=== PATIENT | female | born 1970 | race Caucasian/White ===

== ENCOUNTER 2016-05-03 12:32 | Emergency (ER) | payer BC, OTHER ==
[~2016-05-03] VITALS: Ht 175.3 cm; Wt 65.3 kg
[~2016-05-03 12:32] MED LIST: BUPR300T43 PO; BUTA1CAP17 PO; CLON1TAB3 PO; GABA-113 PO; IBUP-103 PO; MAGN400T6 PO; OMEGCAP2 PO; SERT25TA PO
[2016-05-03 12:38] VITALS: TEMP 37; Ht 175.3 cm; Wt 65.3 kg
[2016-05-03] MEDS ORDERED: OXYC7.5T65 PO (13:04)
[2016-05-03] MEDS ORDERED: DiphenhydrAMINE HCL 50 MG/ML VIAL IV STA (13:21)
[2016-05-03] MEDS ORDERED: ONDANSETRON INJ 2 MG/ML 2 ML VIAL IV STA (13:21)
[2016-05-03] MEDS ORDERED: KETOROLAC TROMETHAMINE 30 MG/ML VIAL IV STA (13:21)
[2016-05-03] MEDS ORDERED: METOCLOPRAMIDE HCL INJ 5 MG/ML 2 ML VIAL IV STA (13:21)
[2016-05-03] MEDS ORDERED: ACETAMINOPHEN 500 MG TAB PO STA (13:21)
[2016-05-03] MEDS ORDERED: SODIUM CHLORIDE 0.9% 1000ML 1,000 ML IV STA (13:21)
[2016-05-03] MEDS ORDERED: HYDROmorphone INJ 1 MG/ML SYR IV STA (13:21)
--- NOTE | 2016-05-03 13:24 | EMERGENCY ROOM VISIT NOTE ---
History Report prepared by Ashutosh: Chika Pearl Under the Supervision of: Dr. Troy Leblanc M.D. First contact with patient: 13:03 Chief Complaint: HEADACHE Stated Complaint: MIGRAINE W/NECK PAIN History of Present Illness The patient is a 46 year old female who presents to the Emergency Room with complaints of a severe and persistent headache starting a few days ago. The patient also complains of neck pain, nausea, and cold-like symptoms. She reports light sensitivity. She has a history of migraine headache and reports similar symptoms today. The patient has been prescribed Percocet as needed for her headaches. Her last CT scan of her head was a few months ago. She has a herniated disc in her neck. She denies chest pain, shortness of breath, or any other complaints. Source of History: patient Onset: a few days ago Position: head Symptom Intensity: severe Timing: other (persistent) Modifying Factors (Worsening): other (light sensitivity) Associated Symptoms: No SOB, No chest pain Review of Systems See HPI for pertinent positives & negatives. A total of 10 systems reviewed and were otherwise negative. Past Medical & Surgical Medical Problems: (1) Acute exacerbation of chronic low back pain (2) Acute neck pain (3) Acute neck pain (4) Anxiety (5) Cervical disc herniation (6) Cervical strain (7) Chronic neck pain (8) Chronic neck pain (9) Chronic neck pain (10) Depression with anxiety (11) Fall (12) Head injury (13) Knee contusion (14) Migraine Surgical Problems: (1) Hx of total hysterectomy (2) S/P cervical spinal fusion (3) S/P cervical spinal fusion (4) S/P cervical spinal fusion (5) S/P total abdominal hysterectomy Family History Heart disease Hypertension Social History Smoking Status: Never Smoker Alcohol Use: none Drug Use: none Marital Status: Housing Status: lives with family Occupation Status: employed Current/Historical Medications Scheduled Bupropion Hcl (Bupropion Hcl Xl), 300 MG PO QAM Rqrvvxkthd-Xdflfmthullzj-Cufyb (Fioricet), 1 CAP PO PRN UD Gabapentin (Neurontin), 600 MG PO BID Magnesium Oxide (Mag-Ox), 400 MG PO DAILY [place]-3 Fatty Acids (Fish Oil), 1 CAP PO DAILY Sertraline (Zoloft), 25 MG PO DAILY Scheduled PRN Clonazepam (Klonopin), 1 MG PO TID PRN for Anxiety Ibuprofen Tab (Advil), 200-800 MG PO Q4H PRN for Pain Metoclopramide (Reglan), 10 MG PO Q6H PRN for migraine headache or nausea Oxycodone/Acetaminophen 7.5MG/325MG (Percocet 7.5MG/325MG), 1 TAB PO QID PRN for Pain Allergies Coded Allergies: Adhesives (Verified Allergy, Intermediate, RED WELTS FROM ADHESIVE ON STERILE DRAPES, 04/05/16) BLISTERS FROM STERI-STRIPS Benzoin (Verified Allergy, Unknown, RASH, 04/05/16) Tramadol (Verified Adverse Reaction, Unknown, N/V, 04/05/16) Physical Exam Vital Signs Date Time Temp Pulse Resp B/P Pulse Ox O2 Delivery O2 Flow Rate FiO2 05/03/16 13:58 95 16 134/91 99 05/03/16 12:38 37.0 104 18 138/85 97 Room Air Physical Exam CONSTITUTIONAL: Moderate painful, nauseous distress HEENT: No icterus, moist mucous membranes NECK: No meningismus, trachea is midline. CARDIOVASCULAR: Regular rate, normal perfusion RESPIRATORY: Unlabored breathing. Clear to auscultation. GASTROINTESTINAL: Non-tender GENITOURINARY: No flank tenderness MUSCULOSKELETAL: Full range of motion NEUROLOGIC: No acute gross focal deficits. PSYCHIATRIC: Normal affect SKIN: Normal for ethnicity. Medical Decision & Procedures Laboratory Results Test 05/03/16 13:21 05/03/16 13:30 Influenza Type A Antigen Neg for Influ A (NEG) Influenza Type B Antigen Neg for Influ B (NEG) Medications Administered Medications (Trade) Dose Ordered Sig/Rony Route Start Time Stop Time Status Last Admin Dose Admin Acetaminophen 1000 mg 1,000 mg NOW STAT PO 05/03/16 13:21 05/03/16 13:24 DC 05/03/16 13:50 1,000 MG Sodium Chloride (Nss 1000ml) 1,000 ml @ 0 mls/hr Q0M STAT IV 05/03/16 13:21 05/03/16 13:24 DC 05/03/16 13:50 0 MLS/HR Ketorolac Tromethamine (Toradol Inj) 30 mg NOW STAT IV 05/03/16 13:21 05/03/16 13:24 DC 05/03/16 13:52 30 MG Ondansetron HCl (Zofran Inj) 4 mg NOW STAT IV 05/03/16 13:21 05/03/16 13:24 DC 05/03/16 13:51 4 MG Diphenhydramine HCl (Benadryl Inj) 25 mg NOW STAT IV 05/03/16 13:21 05/03/16 13:24 DC 05/03/16 13:55 25 MG Metoclopramide HCl (Reglan Inj) 10 mg NOW STAT IV 05/03/16 13:21 05/03/16 13:24 DC 05/03/16 13:55 10 MG ED Course 1303: Past medical records reviewed. The patient was evaluated in room C02B. A complete history and physical examination was performed. Medical Decision Differential diagnosis includes but is not limited to viral syndrome, migraine headache. 46-year-old with history of known migraine and prior neurologic workup including imaging within the last year presents to the emergency room with viral symptoms over the last several days and headache typical of her migraines. She denies any focal neurologic complaints. She was medicated for her symptoms the emergency room and felt better prior to departure. Imaging not needed this time given recent evaluation. Impression Primary Impression: Headache Scribe Attestation The scribe's documentation has been prepared under my direction and personally reviewed by me in its entirety. I confirm that the note above accurately reflects all work, treatment, procedures, and medical decision making performed by me. Departure Information Prescriptions Metoclopramide (Reglan) 10 Mg Tab 10 MG PO Q6H Y for migraine headache or nausea, #20 TAB Prov: Troy Leblanc MD 05/03/16 Referrals Leora Byrne (PCP) Patient Instructions My [facility]
[2016-05-03] MEDS ORDERED: METO-157 PO (15:39)
[2016-05-03 15:54] VITALS: BP 127/61; PULSE 83; O2SAT 100
== END 2016-05-03 15:56 | disposition home or self-care (01) ==
LOC: C.EDB 12:33 → C.EDC 15:56
DX: R51 Headache (principal); M54.5 Low back pain; M54.2 Cervicalgia; G89.29 Other chronic pain; F41.9 Anxiety disorder, unspecified; F32.9 Major depressive disorder, single episode, unspecified; Z79.899 Other long term (current) drug therapy

== ENCOUNTER 2016-06-11 17:23 | Emergency (ER) | payer BC, OTHER ==
[~2016-06-11] VITALS: Ht 175.3 cm; Wt 61.8 kg
[~2016-06-11 17:23] MED LIST changes: +METO-157 PO; +OXYC7.5T65 PO
[2016-06-11 17:25] VITALS: TEMP 36.9; Ht 175.3 cm; Wt 61.8 kg
[2016-06-11] MEDS ORDERED: PROCHLORPERAZINE 5 MG/ML 2 ML VIAL IV STA (17:33)
[2016-06-11] MEDS ORDERED: MoRPHine SULFATE 4 MG/ML 1 ML CARP\\VIAL IV STA (17:33)
[2016-06-11] MEDS ORDERED: KETOROLAC TROMETHAMINE 30 MG/ML VIAL IV STA (17:33)
[2016-06-11] MEDS ORDERED: DiphenhydrAMINE HCL 50 MG/ML VIAL IV STA (17:33)
[2016-06-11] MEDS ORDERED: SODIUM CHLORIDE 0.9% 1000ML 1,000 ML IV STA (17:33)
--- NOTE | 2016-06-11 17:39 | EMERGENCY ROOM VISIT NOTE ---
History Report prepared by Ashutosh: Lissette Henry Under the Supervision of: Dr. Eliud Sargent M.D. First contact with patient: 17:30 Chief Complaint: HEADACHE Stated Complaint: MIGRAINE History of Present Illness The patient is a 46 year old female who presents to the Emergency Room with complaints of a persistent migraine headache that began yesterday, but worsened today. She currently rates her discomfort as a 6/10 in severity, she localizes her pain to the right side of her head. The patient states that she has a history of migraines and states that her headache today feels similar to her previous migraines. She notes nausea, but denies any vomiting. The patient states that she has not had a migraine in awhile, noting that she has medications at home that she typically takes. She states that she ran out of her medications and needs to set up an appointment with her neurologist. The patient denies any recent fall or trauma to her head recently. She denies any fever, urinary symptoms, or weakness or numbness to any extremity. Source of History: patient Onset: yesterday Position: head Symptom Intensity: 6/10 Timing: worsening, other (persistent) Associated Symptoms: + nausea, No fevers, No numbness, No urinary symptoms, No vomiting, No weakness Review of Systems See HPI for pertinent positives & negatives. A total of 10 systems reviewed and were otherwise negative. Past Medical & Surgical Medical Problems: (1) Acute exacerbation of chronic low back pain (2) Acute neck pain (3) Acute neck pain (4) Anxiety (5) Cervical disc herniation (6) Cervical strain (7) Chronic neck pain (8) Chronic neck pain (9) Chronic neck pain (10) Depression with anxiety (11) Fall (12) Head injury (13) Knee contusion (14) Migraine Surgical Problems: (1) Hx of total hysterectomy (2) S/P cervical spinal fusion (3) S/P cervical spinal fusion (4) S/P cervical spinal fusion (5) S/P total abdominal hysterectomy Family History Heart disease Hypertension Social History Smoking Status: Never Smoker Alcohol Use: none Drug Use: none Marital Status: Housing Status: lives with family Occupation Status: employed Current/Historical Medications Scheduled Bupropion Hcl (Bupropion Hcl Xl), 300 MG PO QAM Qiptvbxlnm-Axilltdwvsrwq-Xkqjv (Fioricet), 1 CAP PO PRN UD Calcium Carbonate (Calcium), 600 MG PO DAILY Gabapentin (Neurontin), 600 MG PO BID Magnesium Oxide (Mag-Ox), 400 MG PO DAILY Sertraline (Zoloft), 100 MG PO DAILY Scheduled PRN Clonazepam (Klonopin), 1 MG PO TID PRN for Anxiety Ibuprofen Tab (Advil), 200-800 MG PO Q4H PRN for Pain Oxycodone/Acetaminophen 7.5MG/325MG (Percocet 7.5MG/325MG), 1 TAB PO QID PRN for Pain Allergies Coded Allergies: Adhesives (Verified Allergy, Intermediate, RED WELTS FROM ADHESIVE ON STERILE DRAPES, 04/05/16) BLISTERS FROM STERI-STRIPS Benzoin (Verified Allergy, Unknown, RASH, 04/05/16) Tramadol (Verified Adverse Reaction, Unknown, N/V, 04/05/16) Physical Exam Vital Signs Date Time Temp Pulse Resp B/P Pulse Ox O2 Delivery O2 Flow Rate FiO2 06/11/16 19:03 74 16 130/69 98 06/11/16 17:25 36.9 91 17 150/90 98 Room Air Physical Exam GENERAL: Patient is in no acute distress. HEENT: No acute trauma, normocephalic atraumatic, mucous membranes moist, no nasal congestion, no scleral icterus. Pupils equal and reactive to light. NECK: No stridor, no adenopathy, no meningismus, trachea is midline. LUNGS: Clear to auscultation bilaterally, no wheeze, no rhonchi, breath sounds equal. HEART: Without murmurs gallops or rubs, regular rate and rhythm. ABDOMEN: Soft, nontender, bowel sounds positive, no hernias, no peritonitis. EXTREMITIES: No cyanosis or edema, full range of motion of all the joints without pain or difficulty, no signs for acute trauma. NEUROLOGIC: Oriented x 3, no acute motor or sensory deficits, no focal weakness. No cerebellar deficits. SKIN: No rash, no jaundice, no diaphoresis Medical Decision & Procedures Medications Administered Medications (Trade) Dose Ordered Sig/Rony Route Start Time Stop Time Status Last Admin Dose Admin Sodium Chloride (Nss 1000ml) 1,000 ml @ 999 mls/hr Q1H1M STAT IV 06/11/16 17:33 06/11/16 18:33 DC 06/11/16 17:59 999 MLS/HR Ketorolac Tromethamine (Toradol Inj) 30 mg NOW STAT IV 06/11/16 17:33 06/11/16 17:37 DC 06/11/16 18:00 30 MG Prochlorperazine Edisylate (Compazine Inj) 10 mg NOW STAT IV 06/11/16 17:33 06/11/16 17:37 DC 06/11/16 18:01 10 MG Diphenhydramine HCl (Benadryl Inj) 50 mg NOW STAT IV 06/11/16 17:33 06/11/16 17:37 DC 06/11/16 18:01 50 MG Morphine Sulfate (MoRPHine SULFATE INJ) 4 mg NOW STAT IV 06/11/16 17:33 06/11/16 17:37 DC 06/11/16 18:00 4 MG Dexamethasone Sodium Phosphate (Decadron Inj) 10 mg NOW ONCE IV 06/11/16 17:45 06/11/16 17:46 DC 06/11/16 18:00 10 MG ED Course 1532: The patient was evaluated in room D6. A complete history and physical exam was performed. 1733: Ordered Morphine sulfate 4 mg IV, Benadryl Inj 50 mg IV, Compazine Inj 10 mg IV, Toradol Inj 30 mg IV, Sodium Chloride 1000 ml @ 999 mls/hr IV. 1745: Ordered Decadron Inj 10 mg IV. 1848: I reevaluated the patient and she is resting comfortably. I discussed the exam findings with her and I discussed the treatment plan. She verbalized complete understanding and agreement. She is ready to go home. Medical Decision The patient is a 46 year old female who presents to the ED with complaints of headache. Differential diagnoses considered include migraine headache, tension headache, dehydration, meningitis, stroke, intracranial bleeding. The patient presents with a headache that she describes as a migraine. She has had previous similar migraines. She has not suffered head trauma, there has been no arm or leg weakness. No fever. She does not have meningismus. The patient received IV morphine, IV saline, IV Compazine, IV Benadryl and IV Toradol. She was given IV Decadron. The patient was reassessed, she feels markedly better, I do think she can be discharged home. She can return if worsening. Her headache does sound migrainous. Impression Primary Impression: Headache Scribe Attestation The scribe's documentation has been prepared under my direction and personally reviewed by me in its entirety. I confirm that the note above accurately reflects all work, treatment, procedures, and medical decision making performed by me. Departure Information Dispostion Home / Self-Care Referrals Leora Byrne (PCP) Forms HOME CARE DOCUMENTATION FORM, IMPORTANT VISIT INFORMATION Patient Instructions My [facility] Additional Instructions rest sleep fluids return if worsening
[2016-06-11] MEDS ORDERED: SERT-234 PO (17:42)
[2016-06-11] MEDS ORDERED: DEXAMETHASONE SOD INJ 10 MG/ML VIAL IV ONE (17:45)
[2016-06-11] MEDS ORDERED: CALC-393 PO (17:47)
[2016-06-11 19:03] VITALS: BP 130/69; PULSE 74; O2SAT 98
== END 2016-06-11 19:16 | disposition home or self-care (01) ==
LOC: C.EDB 17:25 → C.EDD 19:16
DX: R51 Headache (principal); M54.5 Low back pain; G89.29 Other chronic pain; F41.9 Anxiety disorder, unspecified; F32.9 Major depressive disorder, single episode, unspecified; Z82.49 Family history of ischemic heart disease and other diseases of the circulatory system; Z79.899 Other long term (current) drug therapy

== ENCOUNTER 2016-07-05 17:18 | Emergency (ER) | payer BC, OTHER ==
[~2016-07-05] VITALS: Ht 175.3 cm; Wt 61.1 kg
[~2016-07-05 17:18] MED LIST changes: +CALC-393 PO; -METO-157 PO; -OMEGCAP2 PO; +SERT-234 PO; -SERT25TA PO
[2016-07-05 17:23] VITALS: TEMP 37; Ht 175.3 cm; Wt 61.1 kg
[2016-07-05] MEDS ORDERED: PROCHLORPERAZINE 5 MG/ML 2 ML VIAL IV STA (18:16)
[2016-07-05] MEDS ORDERED: SODIUM CHLORIDE 0.9% 1000ML 1,000 ML IV STA (18:16)
[2016-07-05] MEDS ORDERED: DiphenhydrAMINE HCL 50 MG/ML VIAL IV STA (18:16)
[2016-07-05] MEDS ORDERED: MoRPHine SULFATE 4 MG/ML 1 ML CARP\\VIAL IV STA (18:16)
--- NOTE | 2016-07-05 18:19 | EMERGENCY ROOM VISIT NOTE ---
History Report prepared by Ashutosh: Mihai Naranjo Under the Supervision of: Dr. Edgar Cheng M.D. First contact with patient: 18:06 Chief Complaint: HEAD INJURY (MINOR) Stated Complaint: BLACKED OUT/ PASS OUT - HIT HEAD History of Present Illness The patient is a 46 year old female who presents to the Emergency Room with complaints of a resolved episode of syncope that occurred at approximately 1400 today. The patient was walking out of her laundry room when the next thing she remembers is waking up on the floor surrounded by her dogs. The patient is not sure how long she was on the ground and cannot remember passing out. The patient hit her head during the fall. She also complains of left knee pain and bruising. The patient notes that she felt dizzy and had chest pressure when she woke up this morning. She denies abdominal pain. The patient takes Gabapentin and occasionally Percocet as needed. She has a history of neck pain and surgery. The patient denies any history of blood clots. She has not traveled recently. Source of History: patient Onset: 1400 today Position: other (global) Quality: other (syncope) Timing: resolved Associated Symptoms: + headache, No abdominal pain Review of Systems See HPI for pertinent positives & negatives. A total of 10 systems reviewed and were otherwise negative. Past Medical & Surgical Medical Problems: (1) Acute exacerbation of chronic low back pain (2) Acute neck pain (3) Acute neck pain (4) Anxiety (5) Cervical disc herniation (6) Cervical strain (7) Chronic neck pain (8) Chronic neck pain (9) Chronic neck pain (10) Depression with anxiety (11) Fall (12) Head injury (13) Knee contusion (14) Migraine Surgical Problems: (1) Hx of total hysterectomy (2) S/P cervical spinal fusion (3) S/P cervical spinal fusion (4) S/P cervical spinal fusion (5) S/P total abdominal hysterectomy Family History Heart disease Hypertension Social History Smoking Status: Never Smoker Alcohol Use: none Drug Use: none Marital Status: Housing Status: lives with family Occupation Status: employed Current/Historical Medications Scheduled Bupropion Hcl (Bupropion Hcl Xl), 300 MG PO QAM Gullmdjuoy-Mptbkcepscgme-Imsic (Fioricet), 1 CAP PO PRN UD Calcium Carbonate (Calcium), 600 MG PO DAILY Gabapentin (Neurontin), 600 MG PO BID Magnesium Oxide (Mag-Ox), 400 MG PO DAILY Sertraline (Zoloft), 100 MG PO DAILY Scheduled PRN Clonazepam (Klonopin), 1 MG PO TID PRN for Anxiety Ibuprofen Tab (Advil), 200-800 MG PO Q4H PRN for Pain Oxycodone/Acetaminophen 7.5MG/325MG (Percocet 7.5MG/325MG), 1 TAB PO QID PRN for Pain Allergies Coded Allergies: Adhesives (Verified Allergy, Intermediate, RED WELTS FROM ADHESIVE ON STERILE DRAPES, 04/05/16) BLISTERS FROM STERI-STRIPS Benzoin (Verified Allergy, Unknown, RASH, 04/05/16) Tramadol (Verified Adverse Reaction, Unknown, N/V, 04/05/16) Physical Exam Vital Signs Date Time Temp Pulse Resp B/P Pulse Ox O2 Delivery O2 Flow Rate FiO2 07/05/16 21:29 75 16 125/70 99 07/05/16 21:07 79 18 125/70 98 Room Air 07/05/16 19:15 102 18 136/81 100 Room Air 07/05/16 17:25 20 07/05/16 17:23 37.0 106 20 136/85 98 Room Air Physical Exam GENERAL: Patient is severely anxious appearing in moderate distress. HEENT: Large bruising over the left forehead extending onto the left christianity , mucous membranes moist, no nasal congestion, no scleral icterus. NECK: No stridor, no adenopathy, no meningismus, trachea is midline. LUNGS: No dyspnea. Clear to auscultation and equal bilaterally. No wheeze, no rhonchi. HEART: Regular rate and rhythm. No murmurs, rubs, gallops appreciated. ABDOMEN: Soft, nontender, bowel sounds positive, no masses appreciated, no peritonitis. BACK: No midline tenderness, no CVA tenderness EXTREMITIES: Normal motion all extremities, no cyanosis, no edema. Large amount of bruising over the left anterior lower knee lateral extending onto proximal tibia with severe tenderness to palpation. NEUROLOGIC: Alert and oriented, no acute motor or sensory deficits, no focal weakness, cranial nerves grossly intact. GCS 15. SKIN: No rash, no jaundice, no diaphoresis. Medical Decision & Procedures ER Provider Diagnostic Interpretation: Radiology results and stated below per my review and radiologist interpretation: SINGLE VIEW CHEST CLINICAL HISTORY: Syncope. FINDINGS: An AP upright chest radiograph is obtained. No prior studies are available for comparison at the time of dictation. The cardiomediastinal silhouette is unremarkable. The lungs and pleural spaces are clear. No pneumothorax is seen. The bony thorax is grossly intact. IMPRESSION: No active disease in the chest. Electronically signed by: Eliud Marcano M.D. 07/05/2016 8:34 PM Dictated Date/Time: 07/05/2016 8:[address] SCAN OF THE BRAIN WITHOUT IV CONTRAST CLINICAL HISTORY: Syncope. COMPARISON STUDY: CT of the brain dated 04/05/2016. TECHNIQUE: Unenhanced axial CT scan of the brain is performed from the vertex to the skull base. Automated dose control exposure was utilized. CT DOSE: 601.98 mGy.cm FINDINGS: Brain parenchyma: The brain parenchyma is normal in appearance. There is no hemorrhage, mass effect, or evidence of acute territorial ischemia by CT criteria. Rockwell-white matter is preserved. No extra-axial fluid collection is seen. Ventricles, sulci, cisterns: Normal in configuration. Intracranial vasculature: The visualized intracranial vasculature at the skull base is normal in appearance. Calvarium: Unremarkable. Sinuses and mastoids: The visualized paranasal sinuses are clear. The mastoid air cells are well pneumatized. Orbits: The bony orbits are grossly intact. IMPRESSION: No acute intracranial abnormality. Electronically signed by: Eliud Marcano M.D. 07/05/2016 7:37 PM Dictated Date/Time: 07/05/2016 7:35 PM LEFT KNEE 2 VIEWS CLINICAL HISTORY: Left knee injury. FINDINGS: AP and crosstable lateral views of left knee are compared to study dated 06/10/2012. The skeletal structures are well mineralized. No fracture is seen. The joint spaces of the knee are preserved. A calcified fabella is incidentally noted. There is no joint effusion. The overlying soft tissues are within normal limits. IMPRESSION: Unremarkable radiographic assessment of the left knee. Electronically signed by: Eliud Marcano M.D. 07/05/2016 8:23 PM Dictated Date/Time: 07/05/2016 8:22 PM LEFT TIBIA AND FIBULA 2 VIEWS CLINICAL HISTORY: Fall with left leg pain. FINDINGS: AP and lateral views of the left tibia and fibula are compared to study dated 10/23/2015. The skeletal structures are well mineralized. No fracture is seen in the left tibia or fibula. The knee and ankle joints are grossly maintained. The overlying soft tissues are within normal limits. IMPRESSION: Unremarkable radiographic assessment of the left tibia and fibula. Electronically signed by: Eliud Marcano M.D. 07/05/2016 8:33 PM Dictated Date/Time: 07/05/2016 8:32 PM Laboratory Results 07/05/16 18:40 Red Blood Count 4.52, Mean Corpuscular Volume 91.2, Mean Corpuscular Hemoglobin 32.1, Mean Corpuscular Hemoglobin Concent 35.2, Mean Platelet Volume 9.5, Neutrophils (%) (Auto) 53.8, Lymphocytes (%) (Auto) 38.0, Monocytes (%) (Auto) 5.4, Eosinophils (%) (Auto) 1.5, Basophils (%) (Auto) 1.2, Neutrophils # (Auto) 3.66, Lymphocytes # (Auto) 2.59, Monocytes # (Auto) 0.37, Eosinophils # (Auto) 0.10, Basophils # (Auto) 0.08 07/05/16 18:40 Test 07/05/16 18:40 White Blood Count 6.81 K/uL (4.8-10.8) Red Blood Count 4.52 M/uL (4.2-5.4) Hemoglobin 14.5 g/dL (12.0-16.0) Hematocrit 41.2 % (37-47) Mean Corpuscular Volume 91.2 fL (80-100) Mean Corpuscular Hemoglobin 32.1 pg (25-34) Mean Corpuscular Hemoglobin Concent 35.2 g/dl (32-36) Platelet Count 320 K/uL (130-400) Mean Platelet Volume 9.5 fL (7.4-10.4) Neutrophils (%) (Auto) 53.8 % Lymphocytes (%) (Auto) 38.0 % Monocytes (%) (Auto) 5.4 % Eosinophils (%) (Auto) 1.5 % Basophils (%) (Auto) 1.2 % Neutrophils # (Auto) 3.66 K/uL (1.4-6.5) Lymphocytes # (Auto) 2.59 K/uL (1.2-3.4) Monocytes # (Auto) 0.37 K/uL (0.11-0.59) Eosinophils # (Auto) 0.10 K/uL (0-0.5) Basophils # (Auto) 0.08 K/uL (0-0.2) RDW Standard Deviation 42.2 fL (36.4-46.3) RDW Coefficient of Variation 12.7 % (11.5-14.5) Immature Granulocyte % (Auto) 0.1 % Immature Granulocyte # (Auto) 0.01 K/uL (0.00-0.02) D-Dimer < 190 ug/L FEU (0-500) Anion Gap 8.0 mmol/L (3-11) Est Creatinine Clear Calc Drug Dose 84.8 ml/min Estimated GFR () 102.5 Estimated GFR (Non- 88.4 BUN/Creatinine Ratio 16.7 (10-20) Calcium Level 9.4 mg/dl (8.5-10.1) Total Creatine Kinase 69 U/L (26-192) Troponin I < 0.015 ng/ml (0-0.045) Laboratory results as reviewed by me. Medications Administered Medications (Trade) Dose Ordered Sig/Rony Route Start Time Stop Time Status Last Admin Dose Admin Sodium Chloride (Nss 1000ml) 1,000 ml @ 999 mls/hr Q1H1M STAT IV 07/05/16 18:16 07/05/16 19:16 DC 07/05/16 19:10 999 MLS/HR Prochlorperazine Edisylate (Compazine Inj) 10 mg NOW STAT IV 07/05/16 18:16 07/05/16 18:20 DC 07/05/16 19:11 10 MG Diphenhydramine HCl (Benadryl Inj) 50 mg NOW STAT IV 07/05/16 18:16 07/05/16 18:20 DC 07/05/16 19:11 50 MG Morphine Sulfate (MoRPHine SULFATE INJ) 4 mg NOW STAT IV 07/05/16 18:16 07/05/16 18:20 DC 07/05/16 19:11 4 MG ECG Indication: syncope Rate (beats per minute): 105 Rhythm: sinus tachycardia Findings: no acute ischemic change, no ectopy ED Course 1809: The patient was evaluated in room C4. A complete history and physical exam was performed. 1815: Morphine Sulfate 4 mg IV, Benadryl 50 mg IV, Compazine 10 mg IV, NSS 1000 ml @ 999 mls/hr. 2020: The patient was sound asleep. She notes that she is feeling much better. 2100: The patient feels much better and would like to go home. Medical Decision Differential: Vaso-vagal, Intracerebral Event, Neurologic, Infectious, Volume Deficiency, Hypoglycemia, Electrolyte Abnormality, Cardiac Source, Toxicologic, amongst other pathologies entertained. 46 yr old female with syncopal event of unclear cause this am with resultant left forehead contusion and left knee injury. Quite anxious and upset on arrival. Given above meds with almost complete resolution of symptoms. Occurred > 6 hours ago and with trop negative and normal EKG I do not feel this is ACS. She does not have elevated dimer and is low risk PE thus I do not feel CTA indicated. CT head negative for acute process and with being fulling neuro intact I do not feel there is indication for MRI nor LP. No fevers nor nuchal ridgidity and she does not appear septic nor meningitic. Labs otherwise unremarkable. No evidence of rhabdo. No acute intoxicated nor under influence. Stable and in no distress feeling well. Wishes to get home. States specifically she feels safe at home. reasonably concerned and not overbearing in any way. Discussed post concussion instructions along with syncope unknown origin. Aware can return at any time if further issues/ concerns. Impression Primary Impression: Closed head injury Additional Impressions: Loss of consciousness Concussion Scribe Attestation The scribe's documentation has been prepared under my direction and personally reviewed by me in its entirety. I confirm that the note above accurately reflects all work, treatment, procedures, and medical decision making performed by me. Departure Information Dispostion Home / Self-Care Referrals Leora Byrne (PCP) Forms HOME CARE DOCUMENTATION FORM, IMPORTANT VISIT INFORMATION Patient Instructions ED Concussion, My [facility] Problem Qualifiers Primary Impression: Closed head injury Encounter type: initial encounter Qualified Codes: S09.90XA - Unspecified injury of head, initial encounter Additional Impressions: Concussion Encounter type: initial encounter Loss of consciousness presence/duration: with LOC of unspecified duration Qualified Codes: S06.0X9A - Concussion with loss of consciousness of unspecified duration, initial encounter
[2016-07-05 18:55] LABS: BASO % 1.2 %; BASO ABS # 0.08 K/uL (0-0.2); COMPLETE YES; EOS % 1.5 %; HEMATOCRIT 41.2 % (37-47); IG% 0.1 %; LYMPH ABS # 2.59 K/uL (1.2-3.4); MEAN CELL VOLUME 91.2 fL (80-100); MEAN CORPUSCULAR HEMOGLOBIN 32.1 pg (25-34); MEAN CORPUSCULAR HGB CONC 35.2 g/dl (32-36); MEAN PLATELET VOLUME 9.5 fL (7.4-10.4); MONO % 5.4 %; NEUT % 53.8 %; PLATELET COUNT 320 K/uL (130-400); RED BLOOD COUNT 4.52 M/uL (4.2-5.4); WHITE BLOOD COUNT 6.81 K/uL (4.8-10.8)
[2016-07-05 19:12] LABS: BLOOD UREA NITROGEN 13 mg/dl (7-18); BUN/CREATININE RATIO 16.7 (10-20); CALCIUM 9.4 mg/dl (8.5-10.1); CARBON DIOXIDE 27 mmol/L (21-32); CHLORIDE 109 mmol/L (98-107); GLUCOSE 83 mg/dl (70-99); POTASSIUM 3.7 mmol/L (3.5-5.1); SODIUM 144 mmol/L (136-145)
--- NOTE | 2016-07-05 19:38 | DIAGNOSTIC IMAGING REPORT ---
CT SCAN OF THE BRAIN WITHOUT IV CONTRAST CLINICAL HISTORY: Syncope. COMPARISON STUDY: CT of the brain dated 04/05/2016. TECHNIQUE: Unenhanced axial CT scan of the brain is performed from the vertex to the skull base. Automated dose control exposure was utilized. CT DOSE: 601.98 mGy.cm FINDINGS: Brain parenchyma: The brain parenchyma is normal in appearance. There is no hemorrhage, mass effect, or evidence of acute territorial ischemia by CT criteria. Rockwell-white matter is preserved. No extra-axial fluid collection is seen. Ventricles, sulci, cisterns: Normal in configuration. Intracranial vasculature: The visualized intracranial vasculature at the skull base is normal in appearance. Calvarium: Unremarkable. Sinuses and mastoids: The visualized paranasal sinuses are clear. The mastoid air cells are well pneumatized. Orbits: The bony orbits are grossly intact. IMPRESSION: No acute intracranial abnormality. Electronically signed by: Eliud Marcano M.D. 07/05/2016 7:37 PM Dictated Date/Time: 07/05/2016 7:35 PM
--- NOTE | 2016-07-05 20:24 | DIAGNOSTIC IMAGING REPORT ---
LEFT KNEE 2 VIEWS CLINICAL HISTORY: Left knee injury. FINDINGS: AP and crosstable lateral views of left knee are compared to study dated 06/10/2012. The skeletal structures are well mineralized. No fracture is seen. The joint spaces of the knee are preserved. A calcified fabella is incidentally noted. There is no joint effusion. The overlying soft tissues are within normal limits. IMPRESSION: Unremarkable radiographic assessment of the left knee. Electronically signed by: Eliud Marcano M.D. 07/05/2016 8:23 PM Dictated Date/Time: 07/05/2016 8:22 PM
--- NOTE | 2016-07-05 20:34 | DIAGNOSTIC IMAGING REPORT ---
LEFT TIBIA AND FIBULA 2 VIEWS CLINICAL HISTORY: Fall with left leg pain. FINDINGS: AP and lateral views of the left tibia and fibula are compared to study dated 10/23/2015. The skeletal structures are well mineralized. No fracture is seen in the left tibia or fibula. The knee and ankle joints are grossly maintained. The overlying soft tissues are within normal limits. IMPRESSION: Unremarkable radiographic assessment of the left tibia and fibula. Electronically signed by: Eliud Marcano M.D. 07/05/2016 8:33 PM Dictated Date/Time: 07/05/2016 8:32 PM
--- NOTE | 2016-07-05 20:36 | DIAGNOSTIC IMAGING REPORT ---
SINGLE VIEW CHEST CLINICAL HISTORY: Syncope. FINDINGS: An AP upright chest radiograph is obtained. No prior studies are available for comparison at the time of dictation. The cardiomediastinal silhouette is unremarkable. The lungs and pleural spaces are clear. No pneumothorax is seen. The bony thorax is grossly intact. IMPRESSION: No active disease in the chest. Electronically signed by: Eliud Marcano M.D. 07/05/2016 8:34 PM Dictated Date/Time: 07/05/2016 8:33 PM
[2016-07-05 21:29] VITALS: BP 125/70; PULSE 75; O2SAT 99
== END 2016-07-05 21:32 | disposition home or self-care (01) ==
LOC: C.EDB 17:21 → C.EDC 21:32
DX: S09.90XA Unspecified injury of head, initial encounter (principal); S06.0X9A Concussion with loss of consciousness of unspecified duration, initial encounter; W19.XXXA Unspecified fall, initial encounter; F41.8 Other specified anxiety disorders; G89.29 Other chronic pain; Z87.820 Personal history of traumatic brain injury; Z87.828 Personal history of other (healed) physical injury and trauma; Z90.710 Acquired absence of both cervix and uterus; Z98.1 Arthrodesis status; Z79.899 Other long term (current) drug therapy; Z88.8 Allergy status to other drugs, medicaments and biological substances; Z91.09 Other allergy status, other than to drugs and biological substances; Z82.49 Family history of ischemic heart disease and other diseases of the circulatory system

== ENCOUNTER 2016-11-11 15:47 | Emergency (ER) | payer BC, OTHER ==
[~2016-11-11] VITALS: Ht 175.3 cm; Wt 64.2 kg
[2016-11-11 15:50] VITALS: TEMP 36.9; Ht 175.3 cm; Wt 64.2 kg
[2016-11-11] MEDS ORDERED: ONDANSETRON INJ 2 MG/ML 2 ML VIAL IV STA (15:55)
[2016-11-11] MEDS ORDERED: MoRPHine SULFATE 10 MG/ML CARP/VIAL IV STA (15:55)
[2016-11-11] MEDS ORDERED: SODIUM CHLORIDE 0.9% 1000ML 1,000 ML IV STA (15:55)
[2016-11-11 16:02] VITALS: O2SAT 100
[2016-11-11] MEDS ORDERED: MoRPHine SULFATE 2 MG/ML CARP ONE (16:05)
[2016-11-11] MEDS ORDERED: MoRPHine SULFATE 4 MG/ML 1 ML CARP\\VIAL ONE (16:05)
--- NOTE | 2016-11-11 16:06 | EMERGENCY ROOM VISIT NOTE ---
History Report prepared by Ashutosh: Sukumar Lambert Under the Supervision of: Dr. Edgar Cheng M.D. First contact with patient: 15:49 Chief Complaint: SEIZURE Stated Complaint: SEIZURE, FALL, EYE INJURY History of Present Illness The patient is a 46 year old female who presents to the Emergency Room via EMS due to a seizure episode that occurred prior to arrival this afternoon. Per the nursing staff, the patient has no seizure history. The patient's daughter witnessed the patient's seizure episode, and says that the patient started to stiffen up while taking out laundry. The patient then seized for 2 minutes, and then fell. She hit her head on the fall on a metal shelf. The patient was incontinent, and was out for about 5 minutes. The patient says that she felt fine prior to the episode, and she does not remember passing out. She states that the last thing she remembers is walking downstairs. The patient currently complains of bad neck pain as well as a mild headache. She adds that her lip is a bit sore. The patient says that she has a history of cervical spine surgeries. She currently has a lump on her upper cervical spine. The patient says that she has not had any new medications nor any chance of . She notes that she has not been drinking heavily recently or using recreational drugs. She does add that she took Benadryl earlier in the day for a bee sting. The patient denies biting her tongue. She has a history of a hysterectomy. Source of History: patient, nursing staff Onset: Prior to arrival this afternoon Position: other (global - seizure) Timing: other (episode) Associated Symptoms: + LOC, + headache, + neck pain Note: Associated symptoms: Hit head on fall. Lip soreness. Incontinent during episode. Denies biting tongue. Review of Systems See HPI for pertinent positives & negatives. A total of 10 systems reviewed and were otherwise negative. Past Medical & Surgical Medical Problems: (1) Acute exacerbation of chronic low back pain (2) Acute neck pain (3) Acute neck pain (4) Anxiety (5) Cervical disc herniation (6) Cervical strain (7) Chronic neck pain (8) Chronic neck pain (9) Chronic neck pain (10) Depression with anxiety (11) Fall (12) Head injury (13) Knee contusion (14) Migraine Surgical Problems: (1) Hx of total hysterectomy (2) S/P cervical spinal fusion (3) S/P cervical spinal fusion (4) S/P cervical spinal fusion (5) S/P total abdominal hysterectomy Family History Heart disease Hypertension Social History Smoking Status: Never Smoker Alcohol Use: none Drug Use: none Marital Status: Housing Status: lives with family Occupation Status: employed Current/Historical Medications Scheduled Bupropion Hcl (Bupropion Hcl Xl), 300 MG PO QAM Qgnxadvwtc-Zdqkabqxnfscw-Knsji (Fioricet), 1 CAP PO PRN UD Calcium Carbonate (Calcium), 600 MG PO DAILY Gabapentin (Gabapentin), 400 MG PO QID Magnesium Oxide (Mag-Ox), 400 MG PO DAILY Scheduled PRN Clonazepam (Klonopin), 1 MG PO TID PRN for Anxiety Ibuprofen Tab (Advil), 200-800 MG PO Q4H PRN for Pain Oxycodone Immediate Rel Tab (Roxicodone Ir), 1-2 TAB PO Q4H PRN for Severe Pain Oxycodone/Acetaminophen 7.5MG/325MG (Percocet 7.5MG/325MG), 1 TAB PO QID PRN for Pain Allergies Coded Allergies: Adhesives (Verified Allergy, Intermediate, RED WELTS FROM ADHESIVE ON STERILE DRAPES, 04/05/16) BLISTERS FROM STERI-STRIPS Benzoin (Verified Allergy, Unknown, RASH, 04/05/16) Tramadol (Verified Adverse Reaction, Unknown, N/V, 04/05/16) Physical Exam Vital Signs Date Time Temp Pulse Resp B/P (MAP) Pulse Ox O2 Delivery O2 Flow Rate FiO2 11/11/16 18:37 98 15 149/86 100 11/11/16 17:04 98 15 149/86 100 Room Air 11/11/16 16:05 105 11/11/16 16:02 100 Room Air 11/11/16 15:50 36.9 107 18 161/100 99 Room Air Physical Exam GENERAL: Patient is uncomfortable appearing and in mild distress. HEENT: Mucous membranes moist, no nasal congestion, no scleral icterus. FACE: Large ecchymotic hematoma over right maxillary sinus extending to right nary. Dried blood in right nares. NECK: In cervical collar. Midline trachea. Upper cervical tenderness to palpation with swelling. LUNGS: No dyspnea. Clear to auscultation and equal bilaterally. No wheeze, no rhonchi. HEART: Regular rate and rhythm. No murmurs, rubs, gallops appreciated. ABDOMEN: Soft, nontender, bowel sounds positive, no masses appreciated, no peritonitis. BACK: No midline tenderness, no CVA tenderness EXTREMITIES: Normal motion all extremities, no cyanosis, no edema. NEUROLOGIC: Alert and oriented, no acute motor or sensory deficits, no focal weakness, cranial nerves grossly intact. SKIN: No rash, no jaundice, no diaphoresis. Medical Decision & Procedures ER Provider Diagnostic Interpretation: Radiology results and stated below per my review and radiologist interpretation: FACIAL BONES-MXILLOFAC WITHOUT CT DOSE: HISTORY: Trauma Fall, Seizure, right max swelling/TTP TECHNIQUE: Multiaxial CT images of the maxillofacial region were performed and reformatted in the coronal plane without the use of contrast. A dose lowering technique was utilized adhering to the principles of ALARA. COMPARISON: 04/05/2016 FINDINGS: Fracture nasal bones. This is considered nondisplaced. Mild right infraorbital soft tissue edema. Degenerative change of the temporomandibular joints bilaterally. No additional acute bony abnormality. IMPRESSION: 1. Fracture nasal bones. 2. Mild periorbital soft tissue edematous change 3. No additional acute bony abnormality. The above report was generated using voice recognition software. It may contain grammatical, syntax or spelling errors. Electronically signed by: Sancho Foster M.D. 11/11/2016 5:06 PM Dictated Date/Time: 11/11/2016 5:04 PM HEAD WITHOUT CONTRAST (CT) CT DOSE: HISTORY: Trauma fall, seizure, head injury TECHNIQUE: Multiaxial CT images of the head were performed without the use of intravenous contrast. A dose lowering technique was utilized adhering to the principles of ALARA. Comparison: 07/05/2016 Findings: The paranasal sinuses and mastoid air cells are clear. The calvarium and skull base are intact. The ventricles and sulci are within normal limits. There is no mass, hematoma, midline shift, or acute infarct. Impression: No acute intracranial abnormality. The above report was generated using voice recognition software. It may contain grammatical, syntax or spelling errors. Electronically signed by: Sancho Foster M.D. 11/11/2016 5:03 PM Dictated Date/Time: 11/11/2016 5:02 PM CHEST ONE VIEW PORTABLE CLINICAL HISTORY: fall, seizure, ams dyspnea COMPARISON STUDY: 07/05/2016 FINDINGS: The bones soft tissues and hemidiaphragms are normal. The cardiomediastinal silhouette is normal. The lungs are clear. The pulmonary vasculature is normal. IMPRESSION: Negative chest. The above report was generated using voice recognition software. It may contain grammatical, syntax or spelling errors. Electronically signed by: Sancho Foster M.D. 11/11/2016 5:31 PM Dictated Date/Time: 11/11/2016 5:31 PM CERVICAL SPINE W/O CT DOSE: 1077.14 mGy.cm HISTORY: Trauma fall, seizure, upper cervical pain/TTP TECHNIQUE: Multiaxial CT images of the cervical spine were performed and reformatted in the sagittal and coronal plane without the use of contrast. A dose lowering technique was utilized adhering to the principles of ALARA. COMPARISON: 04/05/2016 FINDINGS: No fractures. No subluxation. Prevertebral soft tissues and the C1-C2 interval are intact. No pneumothorax. Findings of an anterior fusion and discectomy from C4 through C6 are again noted. IMPRESSION: No fractures within the cervical spine. Postoperative and degenerative change. No acute process. The above report was generated using voice recognition software. It may contain grammatical, syntax or spelling errors. Electronically signed by: Sancho Foster M.D. 11/11/2016 5:08 PM Dictated Date/Time: 11/11/2016 5:06 PM Laboratory Results 11/11/16 16:00 Red Blood Count 4.10, Mean Corpuscular Volume 94.6, Mean Corpuscular Hemoglobin 32.9, Mean Corpuscular Hemoglobin Concent 34.8, Mean Platelet Volume 9.9, Neutrophils (%) (Auto) 55.5, Lymphocytes (%) (Auto) 33.8, Monocytes (%) (Auto) 7.5, Eosinophils (%) (Auto) 2.1, Basophils (%) (Auto) 0.9, Neutrophils # (Auto) 3.68, Lymphocytes # (Auto) 2.24, Monocytes # (Auto) 0.50, Eosinophils # (Auto) 0.14, Basophils # (Auto) 0.06 11/11/16 16:46 Test 11/11/16 15:58 11/11/16 16:00 11/11/16 16:46 Bedside Glucose 111 mg/dl (70-90) White Blood Count 6.63 K/uL (4.8-10.8) Red Blood Count 4.10 M/uL (4.2-5.4) Hemoglobin 13.5 g/dL (12.0-16.0) Hematocrit 38.8 % (37-47) Mean Corpuscular Volume 94.6 fL (80-100) Mean Corpuscular Hemoglobin 32.9 pg (25-34) Mean Corpuscular Hemoglobin Concent 34.8 g/dl (32-36) Platelet Count 297 K/uL (130-400) Mean Platelet Volume 9.9 fL (7.4-10.4) Neutrophils (%) (Auto) 55.5 % Lymphocytes (%) (Auto) 33.8 % Monocytes (%) (Auto) 7.5 % Eosinophils (%) (Auto) 2.1 % Basophils (%) (Auto) 0.9 % Neutrophils # (Auto) 3.68 K/uL (1.4-6.5) Lymphocytes # (Auto) 2.24 K/uL (1.2-3.4) Monocytes # (Auto) 0.50 K/uL (0.11-0.59) Eosinophils # (Auto) 0.14 K/uL (0-0.5) Basophils # (Auto) 0.06 K/uL (0-0.2) RDW Standard Deviation 44.7 fL (36.4-46.3) RDW Coefficient of Variation 13.0 % (11.5-14.5) Immature Granulocyte % (Auto) 0.2 % Immature Granulocyte # (Auto) 0.01 K/uL (0.00-0.02) Prothrombin Time 10.7 SECONDS (9.0-12.0) Prothromb Time International Ratio 1.0 (0.9-1.1) Activated Partial Thromboplast Time 26.3 SECONDS (21.0-31.0) Partial Thromboplastin Ratio 1.0 Anion Gap 7.0 mmol/L (3-11) Est Creatinine Clear Calc Drug Dose 77.4 ml/min Estimated GFR () 86.5 Estimated GFR (Non- 74.7 BUN/Creatinine Ratio 11.6 (10-20) Calcium Level 8.3 mg/dl (8.5-10.1) Troponin I < 0.015 ng/ml (0-0.045) Laboratory results as reviewed by me. Medications Administered Medications (Trade) Dose Ordered Sig/Rony Route Start Time Stop Time Status Last Admin Dose Admin Sodium Chloride 1,000 ml @ 999 mls/hr Q1H1M STAT IV 11/11/16 15:55 11/11/16 16:55 DC 11/11/16 16:10 999 MLS/HR Morphine Sulfate (MoRPHine SULFATE INJ) 6 mg NOW STAT IV 11/11/16 15:55 11/11/16 15:58 DC 11/11/16 16:10 6 MG Ondansetron HCl (Zofran Inj) 4 mg NOW STAT IV 11/11/16 15:55 11/11/16 15:58 DC 11/11/16 16:09 4 MG Oxycodone HCl (Roxicodone Immediate Rel 5MG Home Pack) 1 homepack UD ONCE PO 11/11/16 18:00 11/11/16 18:01 DC 11/11/16 18:15 1 HOMEPACK ECG Indication: syncope Rate (beats per minute): 106 Rhythm: sinus tachycardia Findings: no acute ischemic change, no ectopy Change: no significant change (compared to 07/05/16) ED Course 1551: The patient was evaluated in room C2B. A complete history and physical exam was performed. 1555: Ordered Zofran Inj 4 mg IV, Morphine Sulfate Inj 6 mg IV, NSS 1000 ml @ 999 mls/hr IV. 1800: Ordered Roxicodone Immediate Rel 5MG Home Pack 1 homepack PO. 1810:: Reevaluated the patient and she is resting comfortably. Discussed results and discharge instructions: she verbalized understanding and agreement. The patient is ready for discharge. Medical Decision Differential: Intracranial Injury, Cervical Injury, Intrathoracic/Abdominal Injury, Neurologic Injuries, Fractures/Dislocations, Lacerations, Tetanus Status , amongst other pathologies entertained. 46 yr old female known to me from previous visit following syncope. This time witnessed by daughter who noted to EMS patient seized, then collapsed striking face off metal. Neuro intact. TTP over upper cervical spine though she admits chronic neck pain and previous surgery. CT head/cervical negative and patient noting pain much worse with collar on thus removed with improvement in pain. Nasal fracture on maxillofacial CT. With seizure I reported this to state and made patient aware no driving until cleared by Neurologist (I made it clear it could be 6 months before she can drive again depending on neurologist evaluation /recommendations). Labs unremarkable. EKG OK. No evidence this was acs. No cp, sob nor PE risk factors. She is stable and feeling better. Stressed PCP/ Neuro follow up. Reviewed symptoms requiring return. Reviewed dangers of activities that she could get hurt doing if seizure/syncope. Denies to me and to nursing staff any concerns for abuse. Reviewed restrictions on narcotics though with facial injuries I feel that narcotics are indicated at this time. [place] Drug Monitoring Program Search Results: patient reviewed within database Drug Monitoring Findings: Multiple controlled substance prescriptions every month for the last year. Head Trauma GCS Score: 15 Medication Reconcilliation Current Medication List: was personally reviewed by me Blood Pressure Screening Patient's blood pressure: Elevated blood pressure Blood pressure disposition: Elevated BP felt to be situational Impression Primary Impression: Seizure Additional Impressions: Syncope and collapse Facial contusion Acute neck sprain Nasal bone fractures Scribe Attestation The scribe's documentation has been prepared under my direction and personally reviewed by me in its entirety. I confirm that the note above accurately reflects all work, treatment, procedures, and medical decision making performed by me. Departure Information Dispostion Home / Self-Care Prescriptions Oxycodone Immediate Rel Tab (ROXICODONE IR) 5 Mg Tab 1-2 TAB PO Q4H Y for Severe Pain, #20 TAB Prov: Edgar Cheng M.D. 11/11/16 Referrals Leora Byrne (PCP) Patient Instructions Broken Nose - [facility], ED Seizure New Onset Unk Cause, My [facility] Additional Instructions You are not to drive nor operate machinery until you are cleared by a Neurologist or your Primary Care Provider. The state has been notified you had a seizure of unknown cause. Return if worsening pain, fevers, headache, syncope, further seizures or other concerns. Call your Neurologist tomorrow to schedule an appointment. You have received a narcotic pain medication prescription. These medications may cause drowsiness and should not be used with other sedative medications. Do not drive, drink alcohol, perform dangerous activities, nor make important decisions after taking these medications. halfway use or inappropriate use may lead to addiction. Problem Qualifiers Additional Impressions: Facial contusion Encounter type: initial encounter Qualified Codes: S00.83XA - Contusion of other part of head, initial encounter Acute neck sprain Encounter type: initial encounter Qualified Codes: S13.9XXA - Sprain of joints and ligaments of unspecified parts of neck, initial encounter Nasal bone fractures Encounter type: initial encounter Fracture type: closed Qualified Codes: S02.2XXA - Fracture of nasal bones, initial encounter for closed fracture
[2016-11-11 16:11] LABS: BASO % 0.9 %; BASO ABS # 0.06 K/uL (0-0.2); COMPLETE YES; EOS % 2.1 %; HEMATOCRIT 38.8 % (37-47); IG% 0.2 %; LYMPH % 33.8 %; LYMPH ABS # 2.24 K/uL (1.2-3.4); MEAN CELL VOLUME 94.6 fL (80-100); MEAN CORPUSCULAR HEMOGLOBIN 32.9 pg (25-34); MEAN CORPUSCULAR HGB CONC 34.8 g/dl (32-36); MEAN PLATELET VOLUME 9.9 fL (7.4-10.4); MONO % 7.5 %; NEUT % 55.5 %; PLATELET COUNT 297 K/uL (130-400); WHITE BLOOD COUNT 6.63 K/uL (4.8-10.8)
[2016-11-11] MEDS ORDERED: NRN400 PO (16:21)
[2016-11-11 17:02] LABS: PROTHROMBIN TIME (PATIENT) 10.7 SECONDS (9.0-12.0)
--- NOTE | 2016-11-11 17:05 | DIAGNOSTIC IMAGING REPORT ---
HEAD WITHOUT CONTRAST (CT) CT DOSE: HISTORY: Trauma fall, seizure, head injury TECHNIQUE: Multiaxial CT images of the head were performed without the use of intravenous contrast. A dose lowering technique was utilized adhering to the principles of ALARA. Comparison: 07/05/2016 Findings: The paranasal sinuses and mastoid air cells are clear. The calvarium and skull base are intact. The ventricles and sulci are within normal limits. There is no mass, hematoma, midline shift, or acute infarct. Impression: No acute intracranial abnormality. The above report was generated using voice recognition software. It may contain grammatical, syntax or spelling errors. Electronically signed by: Sancho Foster M.D. 11/11/2016 5:03 PM Dictated Date/Time: 11/11/2016 5:02 PM
--- NOTE | 2016-11-11 17:07 | DIAGNOSTIC IMAGING REPORT ---
FACIAL BONES-MXILLOFAC WITHOUT CT DOSE: HISTORY: Trauma Fall, Seizure, right max swelling/TTP TECHNIQUE: Multiaxial CT images of the maxillofacial region were performed and reformatted in the coronal plane without the use of contrast. A dose lowering technique was utilized adhering to the principles of ALARA. COMPARISON: 04/05/2016 FINDINGS: Fracture nasal bones. This is considered nondisplaced. Mild right infraorbital soft tissue edema. Degenerative change of the temporomandibular joints bilaterally. No additional acute bony abnormality. IMPRESSION: 1. Fracture nasal bones. 2. Mild periorbital soft tissue edematous change 3. No additional acute bony abnormality. The above report was generated using voice recognition software. It may contain grammatical, syntax or spelling errors. Electronically signed by: Sancho Foster M.D. 11/11/2016 5:06 PM Dictated Date/Time: 11/11/2016 5:04 PM
[2016-11-11 17:10] LABS: BLOOD UREA NITROGEN 11 mg/dl (7-18); BUN/CREATININE RATIO 11.6 (10-20); CALCIUM 8.3 mg/dl (8.5-10.1); CARBON DIOXIDE 28 mmol/L (21-32); CHLORIDE 105 mmol/L (98-107); CREATININE 0.92 mg/dl (0.60-1.20); GLUCOSE 104 mg/dl (70-99); POTASSIUM 3.7 mmol/L (3.5-5.1); SODIUM 140 mmol/L (136-145)
--- NOTE | 2016-11-11 17:10 | DIAGNOSTIC IMAGING REPORT ---
CERVICAL SPINE W/O CT DOSE: 1077.14 mGy.cm HISTORY: Trauma fall, seizure, upper cervical pain/TTP TECHNIQUE: Multiaxial CT images of the cervical spine were performed and reformatted in the sagittal and coronal plane without the use of contrast. A dose lowering technique was utilized adhering to the principles of ALARA. COMPARISON: 04/05/2016 FINDINGS: No fractures. No subluxation. Prevertebral soft tissues and the C1-C2 interval are intact. No pneumothorax. Findings of an anterior fusion and discectomy from C4 through C6 are again noted. IMPRESSION: No fractures within the cervical spine. Postoperative and degenerative change. No acute process. The above report was generated using voice recognition software. It may contain grammatical, syntax or spelling errors. Electronically signed by: Sancho Foster M.D. 11/11/2016 5:08 PM Dictated Date/Time: 11/11/2016 5:06 PM
--- NOTE | 2016-11-11 17:32 | DIAGNOSTIC IMAGING REPORT ---
CHEST ONE VIEW PORTABLE CLINICAL HISTORY: fall, seizure, ams dyspnea COMPARISON STUDY: 07/05/2016 FINDINGS: The bones soft tissues and hemidiaphragms are normal. The cardiomediastinal silhouette is normal. The lungs are clear. The pulmonary vasculature is normal. IMPRESSION: Negative chest. The above report was generated using voice recognition software. It may contain grammatical, syntax or spelling errors. Electronically signed by: Sancho Foster M.D. 11/11/2016 5:31 PM Dictated Date/Time: 11/11/2016 5:31 PM
[2016-11-11] MEDS ORDERED: OXYCODONE IR HOME PACK PO ONE (18:00)
[2016-11-11] MEDS ORDERED: OXYC1TAB3 PO (18:01)
[2016-11-11 18:37] VITALS: BP 149/86; PULSE 98; O2SAT 100
== END 2016-11-11 18:37 | disposition home or self-care (01) ==
LOC: EDBD 15:47 → C.EDC 15:48
DX: R56.9 Unspecified convulsions (principal); R55 Syncope and collapse; S00.83XA Contusion of other part of head, initial encounter; S13.9XXA Sprain of joints and ligaments of unspecified parts of neck, initial encounter; S02.2XXA Fracture of nasal bones, initial encounter for closed fracture; X58.XXXA Exposure to other specified factors, initial encounter; F41.9 Anxiety disorder, unspecified; F41.8 Other specified anxiety disorders; Z82.49 Family history of ischemic heart disease and other diseases of the circulatory system

== ENCOUNTER 2016-12-20 12:24 | Emergency (ER) | payer BC, OTHER ==
[~2016-12-20] VITALS: Ht 175.3 cm; Wt 63.2 kg
[~2016-12-20 12:24] MED LIST changes: -GABA-113 PO; +NRN400 PO; +OXYC1TAB3 PO; -SERT-234 PO
[2016-12-20 12:28] VITALS: TEMP 36.8; Ht 175.3 cm; Wt 63.2 kg
[2016-12-20] MEDS ORDERED: ONDANSETRON 4MG OD TAB PO STA (12:47)
[2016-12-20] MEDS ORDERED: KETOROLAC TROMETHAMINE 60 MG/2 ML VIAL IM STA (12:47)
[2016-12-20] MEDS ORDERED: HYDROmorphone INJ 2 MG/ML SYR/VIAL IM STA (12:47)
[2016-12-20] MEDS ORDERED: CYCLOBENZAPRINE HCL 5 MG TAB PO STA (12:47)
[2016-12-20] MEDS ORDERED: LIDODERM (LIDOCAINE) PATCH 5% TD STA (12:47)
--- NOTE | 2016-12-20 12:53 | EMERGENCY ROOM VISIT NOTE ---
History Report prepared by Ashutosh: Lissette Henry Under the Supervision of: Dr. Job Arredondo M.D. First contact with patient: 12:42 Chief Complaint: NECK PAIN Stated Complaint: CERVICLE SPINE, HEAD PAIN History of Present Illness The patient is a 46 year old female who presents to the Emergency Room with complaints of persistent neck pain that began several days ago. She currently rates her discomfort as a 7/10 in severity. The patient states that she has a history of chronic neck and back problems. She states that every few months she gets shots in her neck and back. The patient states that sometimes it takes some time for the shots to kick in and she then experiences increased pain. Today, she reports burning pain and muscle spasms in her right arm, right shoulder, and head. The patient states that she has tried taking her muscle relaxers and pain medications without relief of her symptoms. Source of History: patient Onset: several days ago Position: neck Symptom Intensity: 7/10 Quality: burning, other (muscle spasms) Timing: other (persistent) Note: Associated Symptoms: right shoulder and right arm pain Review of Systems See HPI for pertinent positives & negatives. A total of 10 systems reviewed and were otherwise negative. Past Medical & Surgical Medical Problems: (1) Acute exacerbation of chronic low back pain (2) Acute neck pain (3) Acute neck pain (4) Anxiety (5) Cervical disc herniation (6) Cervical strain (7) Chronic neck pain (8) Chronic neck pain (9) Chronic neck pain (10) Depression with anxiety (11) Fall (12) Head injury (13) Knee contusion (14) Migraine Surgical Problems: (1) Hx of total hysterectomy (2) S/P cervical spinal fusion (3) S/P cervical spinal fusion (4) S/P cervical spinal fusion (5) S/P total abdominal hysterectomy Family History Heart disease Hypertension Social History Smoking Status: Never Smoker Alcohol Use: occasionally Drug Use: none Marital Status: Housing Status: lives with family Occupation Status: employed Current/Historical Medications Scheduled Bupropion Hcl (Bupropion Hcl Xl), 300 MG PO QAM Bjulpjjtpe-Tiqpbnhoweasm-Kyebk (Fioricet), 1 CAP PO PRN UD Calcium Carbonate (Calcium), 600 MG PO DAILY Gabapentin (Gabapentin), 400 MG PO QID Magnesium Oxide (Mag-Ox), 400 MG PO DAILY Scheduled PRN Clonazepam (Klonopin), 1 MG PO TID PRN for Anxiety Ibuprofen Tab (Advil), 200-800 MG PO Q4H PRN for Pain Oxycodone/Acetaminophen 7.5MG/325MG (Percocet 7.5MG/325MG), 1 TAB PO QID PRN for Pain Allergies Coded Allergies: Adhesives (Verified Allergy, Intermediate, RED WELTS FROM ADHESIVE ON STERILE DRAPES, 04/05/16) BLISTERS FROM STERI-STRIPS Benzoin (Verified Allergy, Unknown, RASH, 04/05/16) Tramadol (Verified Adverse Reaction, Unknown, N/V, 04/05/16) Physical Exam Vital Signs Date Time Temp Pulse Resp B/P (MAP) Pulse Ox O2 Delivery O2 Flow Rate FiO2 12/20/16 15:28 89 16 141/86 99 12/20/16 15:09 51 16 128/74 98 12/20/16 14:16 87 12/20/16 14:14 93 18 141/86 99 Room Air 12/20/16 12:28 36.8 99 18 151/68 97 Room Air Physical Exam GENERAL: Patient is a healthy-appearing well-nourished female HEAD: Normocephalic atraumatic EYES: Ocular movements intact pupils equal and react to light OROPHARYNX mucous membranes are moist no exudates present no erythema or edema present NECK: Old scar to the midline of the neck, no pain with palpation, no evidence of meningitis or encephalitis on exam. CHEST: Good equal expansion LUNGS: Clear and equal to auscultation CARDIAC: Normal S1 and S2 ABDOMEN: Soft nontender no guarding BACK: No CVA tenderness EXTREMITIES: No pain upon palpation normal muscle strength in all groups no clubbing cyanosis or edema NEURO: Patient is following commands and answering questions appropriately. Alert and oriented x3 Cranial Nerves 2-12 grossly intact Medical Decision & Procedures Medications Administered Medications (Trade) Dose Ordered Sig/Rony Route Start Time Stop Time Status Last Admin Dose Admin Lidocaine (Lidoderm Patch 5%) 1 patch NOW STAT TD 12/20/16 12:47 12/20/16 12:50 DC 12/20/16 14:10 1 PATCH Ketorolac Tromethamine (Toradol Inj) 60 mg NOW STAT IM 12/20/16 12:47 12/20/16 12:50 DC 12/20/16 13:09 60 MG Cyclobenzaprine HCl (Flexeril Tab) 10 mg TID STAT PO 12/20/16 12:47 12/20/16 12:50 DC 12/20/16 13:09 10 MG Ondansetron HCl (Zofran Odt) 4 mg ONE STAT PO 12/20/16 12:47 12/20/16 12:50 DC 12/20/16 13:10 4 MG Sodium Chloride 1,000 ml @ 999 mls/hr Q1H1M STAT IV 12/20/16 13:27 12/20/16 14:27 DC 12/20/16 14:11 999 MLS/HR Prochlorperazine Edisylate (Compazine Inj) 10 mg NOW STAT IV 12/20/16 13:27 12/20/16 13:28 DC 12/20/16 14:10 10 MG Diphenhydramine HCl (Benadryl Inj) 50 mg NOW STAT IV 12/20/16 13:27 12/20/16 13:28 DC 12/20/16 14:10 50 MG Magnesium Sulfate (Magnesium Sulfate) 1 gm NOW STAT IV 12/20/16 13:27 12/20/16 13:28 DC 12/20/16 14:11 1 GM ED Course 1245: Past medical records reviewed. The patient was evaluated in room A12B. A complete history and physical examination was performed. 1247: Ordered Zofran Odt 4 mg PO, Flexeril Tab 10 mg PO, Toradol Inj 60 mg IM, Dilaudid Inj 2 mg IM, Lidocaine 1 patch TD. Medical Decision Differential diagnosis: Etiologies such as fracture, dislocation, neurovascular compromise, compartment syndrome, soft tissue injury, as well as others were entertained. This is a 46-year-old female who presents emergency department complaining of neck pain. The patient reports that she has had similar neck pain previously. She is asking for us to get her pain under control. She is requesting Dilaudid or morphine unfortunately the pain medication treatment plan has as of December 14. This was explained to the patient that she would not be receiving narcotics. She has no evidence of meningitis or encephalitis on examination. The patient was originally given Toradol a Lidoderm patchAnd Flexeril. The patient was not happy with this therefore an IV was established and the patient was given magnesium Compazine and Benadryl. The patient did not wish to stay any longer and will follow-up with pain management. Medication Reconcilliation Current Medication List: was personally reviewed by me Blood Pressure Screening Patient's blood pressure: Elevated blood pressure Blood pressure disposition: Referred to PCP Impression Primary Impression: Cervical radicular pain Scribe Attestation The scribe's documentation has been prepared under my direction and personally reviewed by me in its entirety. I confirm that the note above accurately reflects all work, treatment, procedures, and medical decision making performed by me. Departure Information Dispostion Home / Self-Care Referrals Leora Byrne (PCP) Patient Instructions My [facility]
[2016-12-20] MEDS ORDERED: SODIUM CHLORIDE 0.9% 1000ML 1,000 ML IV STA (13:27)
[2016-12-20] MEDS ORDERED: MAGNESIUM SULFATE 1GM / D5W 1 GM BAG IV STA (13:27)
[2016-12-20] MEDS ORDERED: PROCHLORPERAZINE 5 MG/ML 2 ML VIAL IV STA (13:27)
[2016-12-20] MEDS ORDERED: DiphenhydrAMINE HCL 50 MG/ML VIAL IV STA (13:27)
[2016-12-20 15:28] VITALS: BP 141/86; PULSE 89; O2SAT 99
== END 2016-12-20 15:30 | disposition home or self-care (01) ==
LOC: C.EDB 12:25 → C.EDA 15:30
DX: M54.12 Radiculopathy, cervical region (principal); G89.29 Other chronic pain; F41.8 Other specified anxiety disorders; Z90.710 Acquired absence of both cervix and uterus; Z98.1 Arthrodesis status; Z82.49 Family history of ischemic heart disease and other diseases of the circulatory system; Z79.899 Other long term (current) drug therapy

== ENCOUNTER → 2017-07-01 | Outpatient (CLI) | payer OTHER ==
[~2017-07-01] MED LIST changes: -OXYC1TAB3 PO
--- NOTE | 2017-07-02 14:59 | MAMMOGRAPHY REPORT ---
BILATERAL DIGITAL SCREENING MAMMOGRAM TOMOSYNTHESIS WITH CAD: 07/01/2017 CLINICAL HISTORY: Routine screening. Patient has no complaints. TECHNIQUE: Breast tomosynthesis in addition to standard 2D mammography was performed. Current study was also evaluated with a Computer Aided Detection (CAD) system. COMPARISON: Comparison is made to exams dated: 03/05/2012 ultrasound, 03/05/2012 consultation, 03/05 ultrasound, 03/05/2012 mammogram, and 01/29/2012 mammogram - [facility]. BREAST COMPOSITION: The tissue of both breasts is extremely dense, which lowers the sensitivity of m ammography. FINDINGS: There is a nodular 9 mm asymmetry seen within the left superior posterior breast on the MLO view, possibly projecting along the posterior nipple line on the cc view. Recommend spot compressio n tomosynthesis views and possible breast ultrasound for further evaluation. Additionally, there is a possible small cluster of calcifications within the right upper inner quadrant, for which spot eleazar fication views are recommended. The remainder of both breasts are stable compared to prior exams, without suspicious masses, calcific ations, or areas of architectural distortion noted. IMPRESSION: ACR BI-RADS CATEGORY 0: INCOMPLETE EVALUATION: NEED ADDITIONAL IMAGING EVALUATION Left breast asymmetry and right breast calcifications, for which additional imaging evaluation is rec ommended. The patient will be called to schedule an appointment. Approximately 10% of breast cancers are not detected with mammography. A negative mammographic report should not delay biopsy if a clinically suggestive mass is present. Gabi Vergara M.D. ah/:07/01/2017 16:00:02 Hplc Chemist: Naye MALLORY(Ismael)(M), [facility] letter sent: Addl Imaging 0 BI-RADS Code: ACR BI-RADS Category 0: Incomplete Evaluation: Need Additional Imaging Evaluation
== END | disposition home or self-care (01) ==
LOC: C.MAMM 09:49
PROVIDERS: ATTEND Obstetrics & Gynecology
DX: Z12.31 Encounter for screening mammogram for malignant neoplasm of breast (principal); N64.89 Other specified disorders of breast

== ENCOUNTER → 2017-07-22 | Outpatient (CLI) | payer OTHER ==
--- NOTE | 2017-07-23 07:42 | MAMMOGRAPHY REPORT ---
BILATERAL DIGITAL DIAGNOSTIC MAMMOGRAM TOMOSYNTHESIS AND TARGETED LEFT ULTRASOUND: 07/22/2017 CLINICAL HISTORY: 47-year-old woman called back from screening mammography for right breast microcalc ifications and left breast asymmetry. Patient has a history of prior surgical excision of a fibroade noma in the left breast. TECHNIQUE: Spot magnification right CC, ML; spot compression tomosynthesis left CC and MLO views were obtained. COMPARISON: Comparison is made to exams dated: 07/01/2017 mammogram, 03/05/2012 ultrasound, 2 ultrasound, 03/05/2012 mammogram, and 01/29/2012 mammogram - [facility]. BREAST COMPOSITION: The tissue of both breasts is extremely dense, which lowers the sensitivity of m ammography. FINDINGS: The spot compression tomosynthesis views of the left breast demonstrate effacement of the 8 mm mass versus asymmetry seen on the 07/01/2017 screening mammogram. No definite persistent mass, as ymmetry or architectural distortion is identified on the tomosynthesis images. Further evaluation wi ultrasound was performed. The spot magnification views of the right breast demonstrate a small cluster of amorphous and punctat e microcalcifications in the upper inner middle one third of the breast, measuring 3 mm. This was no t definitely seen on the prior mammograms performed in 2011 and is therefore indeterminate. Definiti ve characterization with a stereotactic guided biopsy is recommended. Targeted ultrasound was performed in the left breast. There is benign duct ectasia in the retroareol ar left breast. There is an oval parallel circumscribed anechoic benign simple cyst in the 9:00 to 1 0:00 periareolar breast measuring 6.4 x 3.7 x 6.1 mm. This could possibly correlate with the mammogr aphic asymmetry and is benign. Other smaller scattered anechoic cysts are also identified in the lef t breast on ultrasound in both the medial and lateral left breast. No suspicious solid mass is seen. IMPRESSION: ACR BI-RADS CATEGORY 4: SUSPICIOUS, TARGETED ULTRASOUND ACR BI-RADS CATEGORY 4: SUSPICIO US 1. Right breast stereotactic guided biopsy was recommended for a newly visualized 3 mm cluster of pu nctate and amorphous microcalcifications in the upper inner middle one third of the right breast. Af ter this was discussed with the patient she reported she would not undergo a needle biopsy but go str aight to surgical excisional biopsy with preoperative needle localization. Therefore, recommend angie nsultation with the patient's breast surgeon, Dr. Kendall, for needle localized excisional biopsy. 2. Effacement of the 8 mm nodular asymmetry in the left breast with supplemental tomosynthesis image s, and no suspicious sonographic correlate identified. A benign anechoic simple cyst was seen in the 9:0010:00 periareolar left breast which may explain the initial mammographic finding. Pending estela gn pathology results in the right breast would recommend a short interval follow-up left diagnostic m ammogram and possible ultrasound to ensure stability in 6 months. These results and recommendations were discussed with the patient at the time of the exam. Approximately 10% of breast cancers are not detected with mammography. A negative mammographic report should not delay biopsy if a clinically suggestive mass is present. Jody Nix M.D. ay/:07/22/2017 12:14:38 Family Service Caseworker: Dominga MALLORY(Ismael)(M), [facility] letter sent: Abnormal 4/5 BI-RADS Code: ACR BI-RADS Category 4: Suspicious Ultrasound BI-RADS: ACR BI-RADS Category 4: Suspici ous
== END | disposition home or self-care (01) ==
LOC: C.MAMM 10:03
PROVIDERS: ATTEND Obstetrics & Gynecology
DX: R92.8 Other abnormal and inconclusive findings on diagnostic imaging of breast (principal); R92.0 Mammographic microcalcification found on diagnostic imaging of breast

== ENCOUNTER → 2017-08-09 | Day surgery (SDC) | payer OTHER ==
[2017-08-06 08:26] VITALS: Ht 175.3 cm; Wt 61.4 kg
[~2017-08-09] VITALS: Ht 175.3 cm; Wt 61.4 kg
[~2017-08-09] MED LIST changes: +ALPRAZOLAM 0.25 MG TAB ONE; +ALPRAZOLAM 0.25 MG TAB PO PRN; +ATROPINE SULFATE 0.1 MG/ML 5ML SYR IV PRN; -BUPR300T43 PO; +BUSP-8 PO; +CEFAZOLIN 2000MG IV PUSH 15 ML IV SCH; +DEXAMETHASONE SOD INJ 4 MG/ML VIAL ONE; +EpHEDrine SULFATE INJ 50 MG/ML AMP IV PRN; +FENTANYL CITRATE INJ 50 MCG/1 ML 2 ML VIAL ONE; +HYDR-5688 PO; +HYDROCODONE/ACETAMIN 5/325MG TAB PO PRN; +KETOROLAC TROMETHAMINE 30 MG/ML VIAL IV STA; +KETOROLAC TROMETHAMINE 30 MG/ML VIAL ONE; +LACTATED RINGER'S 1000ML 1,000 ML IV SCH; +LAMO150T PO; +LIDOCAINE HCL 1% 20 ML VIAL ONE; +LIDOCAINE HCL 2% 2 ML VIAL (20MG/ML) ONE; +MIDAZOLAM HCL 1 MG/ML 2ML VIAL ONE; +ONDANSETRON INJ 2 MG/ML 2 ML VIAL IV PRN; +ONDANSETRON INJ 2 MG/ML 2 ML VIAL ONE; +PROMETHAZINE HCL INJ 6.25 MG in SODIUM CHLORIDE 0.9% 50ML 50 ML IV PRN; +PROPOFOL IV EMULSION 10 MG/ML 20 ML VIAL IV ONE; +SODIUM CHLORIDE 0.9% 1000ML 1,000 ML IV SCH; +WLLSR150 PO
--- NOTE | 2017-08-09 10:16 | History & Physical Bridge - SC ---
H&P Re-Evaluation Bridge Note: I have examined the patient, reviewed the History & Physical and in the interval since the performance of the History & Physical I have noted the following changes of clinical significance: No changes noted
--- NOTE | 2017-08-09 10:27 | Discharge Instructions-SurgCtr ---
Discharge Instructions Date of Service Aug 09, 2017. Visit Reason for Visit: Right Breast Abnormal Mammogram Discharge Discharge Diagnosis / Problem: abnormal mammo Rt breast Discharge Goals Goal(s): Decrease discomfort, Improve function, Improve disease control Activity Recommendations Activity Limitations: as noted below Lifting Limitations: no more than 25 pounds (for 2 weeks) Exercise/Sports Limitations: until after follow-up appointment May Resume Sexual Activity: when tolerated Shower/Bathe: keep incision dry (may shower over incision in 2 days- Sun 08/11) Driving or Machine Use: resume 1 day after discharge Anesthesia . Post Anesthesia Instructions: If you have had General Anesthesia or IV Sedation: * Do not drive today. * Resume driving when surgeon permits. * Do not make important decisions or sign legal documents today. * Call surgeon for: 1. Temperature elevations greater than 101 degrees F. 2. Uncontrollable pain. 3. Excessive bleeding. 4. Persistent nausea and vomiting. 5. Medication intolerance (nausea, vomiting or rash). * For nausea and vomiting use only clear liquids such as: tea, soda, bouillon until nausea subsides, then gradually increase diet as tolerated. * If you have any concerns or questions, call your surgeon's office. If physician is unavailable and it is an emergency, call 911 or go to the nearest emergency room. . Instructions / Follow-Up Instructions / Follow-Up SPECIAL CARE INSTRUCTIONS: * Cover incisions and change daily for comfort/drainage. * Leave steri strips in place * May use ibuprofen for pain as tolerated. * Expect some swelling and bruising. Call your doctor if: * Temperature above 101 degrees * Pain not relieved by pain medicine ordered * There is increased drainage or redness from any incision * You have any unanswered questions or concerns [phone]. FOLLOW UP VISIT: If not already scheduled, please call the office for a follow-up visit. for 2 weeks- check up OFFICE PHONE NUMBER: Dr. Kendall Office Diet Recommendations Home Diet: resume previous diet Pending Studies Studies pending at discharge: no Medical Emergencies . Who to Call and When: Medical Emergencies: If at any time you feel your situation is an emergency, please call 911 immediately. . Non-Emergent Contact Non-Emergency issues call your: Primary Care Provider, Surgeon . . "Provider Documentation" section prepared by Rolando Kendall. .
--- NOTE | 2017-08-09 10:59 | [facility] Operative Report ---
Operative Report Operative Date Aug 09, 2017. Pre-Operative Diagnosis Right Breast Abnormal Mammogram Post-Operative Diagnosis same Procedure(s) Performed Right Breast Biopsy With Needle Localization Surgeon Dr. Kendall Shovel Logger Surgeon(s) Chris Chacon PA-C Estimated Blood Loss 3ml Findings calcs Specimens A) Right Breast Tissue-Out at 1045 Drains None Anesthesia Type General Complication(s) none Disposition Recovery Room / PACU I attest to the content of the Intraoperative Record and any orders documented therein. Any exceptions are noted below.
[2017-08-09] MEDS: FENTANYL CITRATE INJ 50 MCG/1 ML 2 ML VIAL ONE (11:28)
[2017-08-09] MEDS: FENTANYL CITRATE INJ 50 MCG/1 ML 2 ML VIAL IV PRN ×3 (11:32→11:43)
--- NOTE | 2017-08-09 11:41 | OPERATIVE REPORT ---
DATE OF OPERATION: 08/09/2017 NAME OF OPERATION: Needle localization, right breast biopsy. PREOPERATIVE DIAGNOSIS: Calcifications, right breast. POSTOPERATIVE DIAGNOSIS: Same. STAFF SURGEON: Dr. Kendall. STORE GROCERY MERCHANDISER: Chris Chacon PA-C. ANESTHESIA: 1% plain lidocaine with LMA general anesthesia. PROCEDURE: The patient was brought in the operating room and placed on the operating table in supine position. Her right breast were prepped and draped in usual fashion around a needle which had been placed medially in the breast center. The skin and subcutaneous tissue were anesthetized using 1% plain lidocaine. Incision made lateral to the needle entry carrying dissection down around the needle, sending the tissue for imaging. The calcifications were within the specimen. The deep tissue was reapproximated using 2-0 chromic suture and then the skin reapproximated using 5-0 Monocryl with Steri-Strips. The patient was transferred to recovery room in stable condition. I attest to the content of the Intraoperative Record and any orders documented therein. Any exception s are noted below.
[2017-08-09 12:00] VITALS: TEMP 36.4
[2017-08-09 12:40] VITALS: BP 124/75; PULSE 68; O2SAT 99
--- NOTE | 2017-08-09 12:41 | Anesthesia Progress Nt - [facility] ---
Anesthesia Post Op Note Date & Time Aug 09, 2017 at 12:41 Vital Signs Pain Intensity: 6.0 Vital Signs Past 12 Hours Date Time Temp Pulse Resp B/P (MAP) Pulse Ox O2 Delivery O2 Flow Rate FiO2 08/09/17 12:00 36.4 79 16 142/89 (106) 98 Room Air 08/09/17 11:51 134/77 08/09/17 11:49 82 14 08/09/17 11:49 84 14 100 08/09/17 11:46 137/82 08/09/17 11:44 37.0 100 Room Air 08/09/17 11:44 87 19 100 08/09/17 11:44 87 19 08/09/17 11:43 84 24 08/09/17 11:43 84 24 100 08/09/17 11:41 137/70 08/09/17 11:38 86 22 08/09/17 11:38 87 22 100 08/09/17 11:36 134/77 08/09/17 11:33 86 19 08/09/17 11:33 86 19 100 08/09/17 11:32 87 16 08/09/17 11:32 86 16 100 08/09/17 11:31 124/77 08/09/17 11:27 87 18 08/09/17 11:27 87 18 100 08/09/17 11:26 121/75 08/09/17 11:22 93 17 100 08/09/17 11:22 93 17 08/09/17 11:21 118/70 08/09/17 11:17 104 17 08/09/17 11:17 105 17 100 08/09/17 11:16 103 17 08/09/17 11:16 103 17 127/77 100 08/09/17 11:11 84 13 08/09/17 11:11 85 13 117/75 100 08/09/17 11:06 70 12 98/55 100 08/09/17 11:06 36.7 68 12 98/55 100 Mask 9 08/09/17 11:06 70 12 08/09/17 08:18 37. 93 16 128/85 (99) 100 Room Air Notes Mental Status: alert / awake / arousable, participated in evaluation Pt Amnestic to Procedure: Yes Nausea / Vomiting: adequately controlled Pain: adequately controlled Airway Patency, RR, SpO2: stable & adequate BP & HR: stable & adequate Hydration State: stable & adequate Anesthetic Complications: no major complications apparent
--- NOTE | 2017-08-12 07:49 | MAMMOGRAPHY REPORT ---
NEEDLE LOCALIZATION RIGHT BREAST: 08/09/2017 CLINICAL HISTORY: Indeterminate calcifications in the right upper inner quadrant. PROCEDURE DESCRIPTION: With imaging guidance, aseptic technique, and 1% lidocaine as the local anesth etic, the calcifications of concern in the right upper inner quadrant were localized with a 5 cm Hawk ins II needle. The path of approach was medial. The small cluster of calcifications is located louise g the distal portion of the wire between the qasim and tip of the wire. The needle was left in place. The patient tolerated the procedure without complication. COMPARISON: Comparison is made to exams dated: 07/22/2017 ultrasound, 07/22/2017 mammogram, 07/01/2017 ma mmogram, 03/05/2012 ultrasound, 03/05/2012 consultation, and 03/05/2012 ultrasound - [facility]. IMPRESSION: NEEDLE LOCALIZATION Needle localization of the small cluster of indeterminate calcifications in the right upper inner bong silverman. Gabi Vergara M.D. ah/:08/09/2017 09:02:53 Maintenance Coordinator: Skye MALLORY(R)(M), [facility]
--- NOTE | 2017-08-12 07:49 | MAMMOGRAPHY REPORT ---
SPECIMEN RIGHT BREAST: 08/09/2017 CLINICAL HISTORY: Status post right breast surgical excision. COMPARISON: Comparison is made to exams dated: 07/22/2017 ultrasound, 07/22/2017 mammogram, 07/01/2017 ma mmogram, and 03/05/2012 ultrasound - [facility]. Findings: A radiograph was performed of the right breast surgical specimen. The localized cluster of calcifications and the intact needle localization wire and needle are present within the specimen. Results were discussed with Dr. Kendall over the telephone. IMPRESSION: SPECIMEN The imaged specimen contains the localized cluster of calcifications. Gabi Vergara M.D. ah/:08/09/2017 11:01:47 Lifestyle Block Farmer: Skye MALLORY(Ismael)(M), [facility]
== END | disposition home or self-care (01) ==
LOC: X.SURG 07:52
PROVIDERS: ATTEND Surgery
DX: R92.8 Other abnormal and inconclusive findings on diagnostic imaging of breast (principal); M54.12 Radiculopathy, cervical region; F32.9 Major depressive disorder, single episode, unspecified; M51.36 Other intervertebral disc degeneration, lumbar region; Z82.49 Family history of ischemic heart disease and other diseases of the circulatory system; Z79.899 Other long term (current) drug therapy; Z88.8 Allergy status to other drugs, medicaments and biological substances

== ENCOUNTER 2017-08-24 10:30 | Inpatient (IN) | payer OTHER ==
[~2017-08-24] VITALS: Ht 175.3 cm; Wt 63.5 kg
[~2017-08-24 10:30] MED LIST changes: -ALPRAZOLAM 0.25 MG TAB ONE; -ALPRAZOLAM 0.25 MG TAB PO PRN; -ATROPINE SULFATE 0.1 MG/ML 5ML SYR IV PRN; -CEFAZOLIN 2000MG IV PUSH 15 ML IV SCH; -DEXAMETHASONE SOD INJ 4 MG/ML VIAL ONE; -EpHEDrine SULFATE INJ 50 MG/ML AMP IV PRN; -FENTANYL CITRATE INJ 50 MCG/1 ML 2 ML VIAL ONE; -HYDROCODONE/ACETAMIN 5/325MG TAB PO PRN; -KETOROLAC TROMETHAMINE 30 MG/ML VIAL IV STA; -KETOROLAC TROMETHAMINE 30 MG/ML VIAL ONE; -LACTATED RINGER'S 1000ML 1,000 ML IV SCH; -LIDOCAINE HCL 1% 20 ML VIAL ONE; -LIDOCAINE HCL 2% 2 ML VIAL (20MG/ML) ONE; -MIDAZOLAM HCL 1 MG/ML 2ML VIAL ONE; -ONDANSETRON INJ 2 MG/ML 2 ML VIAL IV PRN; -ONDANSETRON INJ 2 MG/ML 2 ML VIAL ONE; -PROMETHAZINE HCL INJ 6.25 MG in SODIUM CHLORIDE 0.9% 50ML 50 ML IV PRN; -PROPOFOL IV EMULSION 10 MG/ML 20 ML VIAL IV ONE; -SODIUM CHLORIDE 0.9% 1000ML 1,000 ML IV SCH
[2017-08-24] MEDS ORDERED: DEXAMETHASONE INJ 8 MG in SYRINGE 0 ML IV STA (10:46)
[2017-08-24] MEDS ORDERED: MoRPHine SULFATE 10 MG/ML CARP/VIAL IV STA (10:46)
[2017-08-24] MEDS ORDERED: ONDANSETRON INJ 2 MG/ML 2 ML VIAL IV STA (10:46)
[2017-08-24] MEDS ORDERED: KETOROLAC TROMETHAMINE 30 MG/ML VIAL IV STA (10:46)
[2017-08-24] MEDS ORDERED: MELO-84 PO (11:31)
[2017-08-24] MEDS ORDERED: HYDROmorphone INJ 2 MG/ML SYR/VIAL IV STA (12:30)
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
[2017-08-24] MEDS ORDERED: CLONAZEPAM 1 MG TAB PO PRN (13:45)
[2017-08-24 14:00] VITALS: O2SAT 96; Ht 175.3 cm; Wt 63.5 kg
[2017-08-24 14:09] VITALS: O2SAT 96
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
[2017-08-24 14:30] VITALS: BP 156/89; PULSE 95; TEMP 37.6; O2SAT 97
[2017-08-24 15:33] LABS: HEMATOCRIT 38.9 % (37-47); HEMOGLOBIN 13.2 g/dL (12.0-16.0); MEAN CORPUSCULAR HEMOGLOBIN 32.6 pg (25-34); MEAN CORPUSCULAR HGB CONC 33.9 g/dl (32-36); MEAN PLATELET VOLUME 9.4 fL (7.4-10.4); PLATELET COUNT 363 K/uL (130-400); RED CELL DISTRIBUTION WIDTH CV 12.9 % (11.5-14.5); WHITE BLOOD COUNT 14.56 K/uL (4.8-10.8)
[2017-08-24 15:40] LABS: INR 0.9 (0.9-1.1)
[2017-08-24] MEDS: KETOROLAC TROMETHAMINE 30 MG/ML VIAL IV PRN (15:42)
[2017-08-24] MEDS ORDERED: OPTIRAY 320 IV PRN (15:45)
[2017-08-24 15:49] LABS: CALCIUM 8.6 mg/dl (8.5-10.1); POTASSIUM 4.2 mmol/L (3.5-5.1)
[2017-08-24 16:16] LABS: BASO % 0.2 %; BASO ABS # 0.03 K/uL (0-0.2); EOS % 0.1 %; EOS ABS # 0.02 K/uL (0-0.5); IG# 0.07 K/uL (0.00-0.02); LYMPH % 6.6 %; LYMPH ABS # 0.96 K/uL (1.2-3.4); MONO % 1.2 %; MONO ABS # 0.18 K/uL (0.11-0.59); NEUT % 91.4 %
[2017-08-24] MEDS: HYDROmorphone INJ 0.5 MG/0.5 ML SYR IV PRN (19:36)
[2017-08-24] MEDS: ONDANSETRON INJ 2 MG/ML 2 ML VIAL IV PRN (19:40)
[2017-08-24] MEDS: GABAPENTIN 400 MG CAP PO SCH (20:49)
[2017-08-24] MEDS: MAGNESIUM OXIDE 400 MG TAB PO SCH (20:52)
[2017-08-24] MEDS ORDERED: DEXAMETHASONE INJ 2 MG in SYRINGE 0 ML IV SCH (21:00)
[2017-08-24 23:01] VITALS: BP 117/66; PULSE 84; TEMP 36.7; O2SAT 98
[2017-08-25] MEDS: HYDROmorphone INJ 0.5 MG/0.5 ML SYR IV PRN ×6 (03:24→18:39)
[2017-08-25 06:05] LABS: BASO % 0.4 %; BASO ABS # 0.04 K/uL (0-0.2); EOS % 0.6 %; EOS ABS # 0.06 K/uL (0-0.5); HEMATOCRIT 36.6 % (37-47); HEMOGLOBIN 12.3 g/dL (12.0-16.0); IG# 0.03 K/uL (0.00-0.02); LYMPH % 28.3 %; LYMPH ABS # 2.77 K/uL (1.2-3.4); MEAN CELL VOLUME 96.3 fL (80-100); MEAN CORPUSCULAR HEMOGLOBIN 32.4 pg (25-34); MEAN CORPUSCULAR HGB CONC 33.6 g/dl (32-36); MEAN PLATELET VOLUME 9.3 fL (7.4-10.4); MONO % 8.1 %; MONO ABS # 0.79 K/uL (0.11-0.59); NEUT % 62.3 %; NEUT ABS # 6.09 K/uL (1.4-6.5); PLATELET COUNT 317 K/uL (130-400); RED CELL DISTRIBUTION WIDTH CV 13.1 % (11.5-14.5); RED CELL DISTRIBUTION WIDTH SD 45.4 fL (36.4-46.3); WHITE BLOOD COUNT 9.78 K/uL (4.8-10.8)
[2017-08-25 06:34] LABS: CALCIUM 8.4 mg/dl (8.5-10.1); CREATININE 0.82 mg/dl (0.60-1.20)
[2017-08-25 07:40] VITALS: BP 137/76; PULSE 81; TEMP 36.8; O2SAT 100
[2017-08-25] MEDS: CALCIUM 600MG + VIT D 400 IU TAB PO SCH (09:28)
[2017-08-25] MEDS: GABAPENTIN 400 MG CAP PO SCH ×3 (09:29→20:58)
[2017-08-25] MEDS: BuPROPion SR 150 MG TABCR PO SCH (09:29)
--- NOTE | 2017-08-25 10:49 | Orthopedic Consultation ---
Orthopedic Consultation Date of Consultation: August 25, 2017. Attending Physician: Mariel Sanchez M.D. Reason for Consultation: Cervicalgia History of Present Illness Very pleasant 47-year-old female with acute on chronic episode cervicalgia. She does have long-standing neck pain has undergone a total of 4 cervical surgeries. She underwent cervical injection earlier this week and had a marked increase in neck pain afterwards. This point she denies any change or increase in symptoms involving the upper extremities. She denies any headaches. She denies any balance disturbance or lower extremity dysfunction. She is managed at [place] is very satisfied with her care. Past Medical/Surgical History Medical Problems: (1) Acute neck sprain Status: Acute (2) Adjustment disorder Status: Acute (3) Cat bite Status: Acute (4) Cervical disc disorder of cervicothoracic region Status: Acute (5) Closed head injury Status: Acute (6) Concussion Status: Acute (7) Contusion of multiple sites Status: Acute (8) Depression with anxiety Status: Chronic (9) Facial contusion Status: Acute (10) Failure of outpatient treatment Status: Acute (11) Headache Status: Acute (12) Headache Status: Acute (13) Headache Status: Acute (14) Headache Status: Acute (15) Headache Status: Acute (16) Hematoma Status: Acute (17) Loss of consciousness Status: Acute (18) Migraine Status: Chronic (19) Migraine Status: Acute (20) Migraine Status: Acute (21) Migraine Status: Acute (22) Migraine Status: Acute (23) Migraine Status: Acute (24) Migraine without aura Status: Acute (25) Nasal bone fractures Status: Acute (26) Neck pain on right side Status: Acute (27) Right sided weakness Status: Acute (28) Seizure Status: Acute (29) Syncope and collapse Status: Acute (30) TIA (transient ischemic attack) Status: Acute Surgical Problems: (1) S/P cervical spinal fusion Status: Chronic (2) S/P cervical spinal fusion Status: Chronic Family History Heart disease Hypertension Social History Smoking Status: Never Smoker Alcohol Use: none Drug Use: none Marital Status: Housing Status: lives with family Occupation Status: employed Allergies Coded Allergies: Adhesives (Verified Allergy, Intermediate, RED WELTS FROM ADHESIVE ON STERILE DRAPES, 08/24/17) BLISTERS FROM STERI-STRIPS Benzoin (Verified Allergy, Unknown, USED TO PUT UNDER STERI STRIPS TO KEEP THEM ON -- BLISTERS, 08/24/17) Tramadol (Verified Adverse Reaction, Unknown, N/V, 08/24/17) Home Medications Scheduled Bupropion HCl (Bupropion HCl Sr), 150 MG PO QAM Buspirone Hcl (Buspirone Hcl), 20 MG PO BID Vhrmexwxwn-Asiolatxnaljm-Yildf (Fioricet), 1 CAP PO PRN UD Calcium Carbonate (Calcium), 600 MG PO DAILY Gabapentin (Gabapentin), 400 MG PO BID Lamotrigine (Lamictal), 150 MG PO QAM Magnesium Oxide (Mag-Ox), 400 MG PO QPM Meloxicam (Mobic), 15 MG PO DAILY Scheduled PRN Clonazepam (Klonopin), 1 MG PO TID PRN for Anxiety Ibuprofen Tab (Advil), 200-800 MG PO Q4H PRN for Pain Oxycodone/Acetaminophen 7.5MG/325MG (Percocet 7.5MG/325MG), 1 TAB PO QID PRN for Pain Current Inpatient Medications Current Inpatient Medications Medications (Trade) Dose Ordered Sig/Rony Route Start Time Stop Time Status Last Admin Dose Admin Ondansetron HCl (Zofran Inj) 4 mg Q6H PRN IV 08/24/17 13:45 09/23/17 13:44 08/24/17 19:40 4 MG Bupropion HCl (Wellbutrin-Sr Tab) 150 mg QAM PO 08/25/17 09:00 09/24/17 08:59 08/25/17 09:29 150 MG Clonazepam (Klonopin Tab) 1 mg TID PRN PO 08/24/17 13:45 09/23/17 13:44 Gabapentin (Neurontin Cap) 400 mg BID PO 08/24/17 21:00 09/23/17 20:59 08/25/17 09:29 400 MG Lamotrigine (Lamictal Tab) 150 mg QAM PO 08/25/17 09:00 09/24/17 08:59 08/25/17 09:32 150 MG Magnesium Oxide (Mag-Ox Tab) 400 mg QPM PO 08/24/17 21:00 09/23/17 20:59 08/24/17 20:52 400 MG Buspirone HCl (Buspar Tab) 20 mg BID PO 08/24/17 21:00 09/23/17 20:59 08/25/17 09:28 20 MG Calcium/Vitamin D (Caltrate Plus Tab) 1 tab DAILY PO 08/25/17 09:00 09/24/17 08:59 08/25/17 09:28 1 TAB Ketorolac Tromethamine (Toradol Inj) 30 mg Q6H PRN IV 08/24/17 13:45 08/29/17 13:44 08/24/17 15:42 30 MG Ioversol (Optiray 320) 100 ml UD PRN IV 08/24/17 15:45 08/28/17 15:44 Hydromorphone HCl (Dilaudid Inj) 0.5 mg Q3H PRN IV 08/24/17 19:30 09/07/17 19:29 08/25/17 07:34 0.5 MG Physical Exam Date Time Temp Pulse Resp B/P (MAP) Pulse Ox O2 Delivery O2 Flow Rate FiO2 08/25/17 07:40 36.8 81 15 137/76 (96) 100 Room Air 08/25/17 07:30 Room Air 08/24/17 23:54 Room Air 08/24/17 23:01 36.7 84 12 117/66 (83) 98 Room Air 08/24/17 15:35 Room Air 08/24/17 14:30 37.6 95 14 156/89 (111) 97 Room Air 08/24/17 14:09 97 18 119/87 96 08/24/17 14:00 96 Room Air 08/24/17 13:21 86 18 146/84 98 Room Air 08/24/17 11:45 100 16 139/88 98 Room Air On exam she is in obvious distress. She is however alert and cooperative with all questions and exam. She does demonstrate reasonable strength testing of the upper extremities. She has well-healed incisions. Limited cervical range of motion. Laboratory Results Last 24 Hours Test 08/24/17 15:10 08/25/17 05:39 White Blood Count 14.56 K/uL 9.78 K/uL Red Blood Count 4.05 M/uL 3.80 M/uL Hemoglobin 13.2 g/dL 12.3 g/dL Hematocrit 38.9 % 36.6 % Mean Corpuscular Volume 96.0 fL 96.3 fL Mean Corpuscular Hemoglobin 32.6 pg 32.4 pg Mean Corpuscular Hemoglobin Concent 33.9 g/dl 33.6 g/dl Platelet Count 363 K/uL 317 K/uL Mean Platelet Volume 9.4 fL 9.3 fL Neutrophils (%) (Auto) 91.4 % 62.3 % Lymphocytes (%) (Auto) 6.6 % 28.3 % Monocytes (%) (Auto) 1.2 % 8.1 % Eosinophils (%) (Auto) 0.1 % 0.6 % Basophils (%) (Auto) 0.2 % 0.4 % Neutrophils # (Auto) 13.30 K/uL 6.09 K/uL Lymphocytes # (Auto) 0.96 K/uL 2.77 K/uL Monocytes # (Auto) 0.18 K/uL 0.79 K/uL Eosinophils # (Auto) 0.02 K/uL 0.06 K/uL Basophils # (Auto) 0.03 K/uL 0.04 K/uL RDW Standard Deviation 45.0 fL 45.4 fL RDW Coefficient of Variation 12.9 % 13.1 % Immature Granulocyte % (Auto) 0.5 % 0.3 % Immature Granulocyte # (Auto) 0.07 K/uL 0.03 K/uL Prothrombin Time 9.7 SECONDS Prothromb Time International Ratio 0.9 Sodium Level 139 mmol/L 141 mmol/L Potassium Level 4.2 mmol/L 4.0 mmol/L Chloride Level 106 mmol/L 106 mmol/L Carbon Dioxide Level 29 mmol/L 30 mmol/L Anion Gap 4.0 mmol/L 4.0 mmol/L Blood Urea Nitrogen 20 mg/dl 19 mg/dl Creatinine 1.00 mg/dl 0.82 mg/dl Est Creatinine Clear Calc Drug Dose 69.7 ml/min 85.0 ml/min Estimated GFR () 77.7 98.8 Estimated GFR (Non- 67.0 85.2 BUN/Creatinine Ratio 19.7 23.4 Random Glucose 118 mg/dl 85 mg/dl Calcium Level 8.6 mg/dl 8.4 mg/dl Assessment & Plan Assessment acute on chronic cervicalgia. Plan at this time we did discuss further imaging throughout her hospital stay. She is declined. She is hoping that her pain can be controlled today and discharge home this afternoon. Please notify me if I can be of any further service.
[2017-08-25] MEDS: KETOROLAC TROMETHAMINE 30 MG/ML VIAL IV PRN ×2 (11:09→18:38)
[2017-08-25] MEDS: ONDANSETRON INJ 2 MG/ML 2 ML VIAL IV PRN (14:02)
[2017-08-25] MEDS ORDERED: GABAPENTIN 400 MG CAP PO ONE (14:15)
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
[2017-08-25] MEDS ORDERED: ENOXAPARIN 40 MG/0.4 ML SYR SQ ONE (14:45)
[2017-08-25 15:15] VITALS: BP 136/75; PULSE 80; TEMP 37.1; O2SAT 97
[2017-08-25] MEDS: MAGNESIUM OXIDE 400 MG TAB PO SCH (20:58)
[2017-08-25 23:05] VITALS: BP 107/59; PULSE 81; TEMP 36.9; O2SAT 96
[2017-08-26] MEDS: KETOROLAC TROMETHAMINE 30 MG/ML VIAL IV PRN ×3 (01:14→14:00)
[2017-08-26] MEDS: HYDROmorphone INJ 0.5 MG/0.5 ML SYR IV PRN ×4 (01:14→15:05)
[2017-08-26 07:29] VITALS: BP 117/73; PULSE 70; TEMP 36.8; O2SAT 97
[2017-08-26] MEDS: ONDANSETRON INJ 2 MG/ML 2 ML VIAL IV PRN (08:20)
[2017-08-26] MEDS: GABAPENTIN 400 MG CAP PO SCH ×2 (08:23→12:31)
[2017-08-26] MEDS: BuPROPion SR 150 MG TABCR PO SCH (08:23)
[2017-08-26] MEDS: CALCIUM 600MG + VIT D 400 IU TAB PO SCH (08:25)
[2017-08-26] MEDS ORDERED: ENOXAPARIN 40 MG/0.4 ML SYR SQ SCH (09:00)
--- NOTE | 2017-08-26 14:06 | Discharge Instructions ---
Discharge Instructions Date of Service August 26, 2017. Admission Reason for Admission: Cervicalgia, Intractable Pain Discharge Discharge Diagnosis / Problem: acute on chronic cervicalgia with radiculopathy Discharge Goals Goal(s): Decrease discomfort, Diagnostic testing, Therapeutic intervention Activity Recommendations Activity Limitations: resume your previous activity . Instructions / Follow-Up Instructions / Follow-Up Ms. Gordon you were admitted for worsening of your chronic neck pain which was not well controlled with your home pain regimen. You received IV pain medications (dilaudid and toradol) during your admission. Your pain improved and was believed to be manageable with your home pain regimen. We discussed potential benefits of hands on manipulative medicine in improving your pain. We recommend seeing Dr. Vega Choudhury ([facility] located off [facility]) for C-spine manipulations. You may also benefit from improved management of the neuropathic component of your pain. We recommend discussing Tricyclic Anti-depressants such as (amytriptyline/nortriptyline) and/or Serotonin Nor-epinephrine reuptake inhibitors (SNRIs) such as venlafaxine with your PCP, Michelle Byrne. We also gave you 15 additional Percocet tabs for acute pain management. Please continue your home medications as prescribed and follow up with your PCP. Appt scheduled with Michelle Byrne on 09/04 at 9:30am. Current Hospital Diet Patient's current hospital diet: Regular Diet Discharge Diet Recommended Diet: Regular Diet Pending Studies Studies pending at discharge: no Medical Emergencies . Who to Call and When: Medical Emergencies: If at any time you feel your situation is an emergency, please call 911 immediately. . Non-Emergent Contact Non-Emergency issues call your: Primary Care Provider Call Non-Emergent contact if: temperature is above 101, your pain is worsening . . "Provider Documentation" section prepared by Hawk Chin. .
[2017-08-26 14:31] VITALS: BP 117/73; PULSE 70; TEMP 36.8; O2SAT 97
[2017-08-26] MEDS ORDERED: OXYC7.5T65 PO (14:36)
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
[2017-08-26 15:05] VITALS: BP 173/81; PULSE 77; TEMP 37.2; O2SAT 98
[2017-08-26 15:19] VITALS: BP 136/79; PULSE 71
== END 2017-08-26 15:29 | disposition home or self-care (01) | DRG 74 ==
LOC: C.EDB 10:33 → C.MSW 13:50 → ENRESERV 14:00
PROVIDERS: ADMIT Internal Medicine; ATTEND Family Medicine
DX: M54.12 Radiculopathy, cervical region (principal); M25.511 Pain in right shoulder; F32.9 Major depressive disorder, single episode, unspecified; F41.1 Generalized anxiety disorder; Z79.899 Other long term (current) drug therapy; Z88.8 Allergy status to other drugs, medicaments and biological substances; Z98.890 Other specified postprocedural states

== ENCOUNTER 2020-08-20 18:53 | Inpatient (IN) ==
[2020-08-20] MEDS ORDERED: ONDANSETRON INJ 2 MG/ML 2 ML VIAL IV STA (19:08)
[2020-08-20] MEDS ORDERED: SODIUM CHLORIDE 0.9% 1000ML 1,000 ML IV STA (19:08)
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
[2020-08-20] MEDS: MoRPHine SULFATE 4 MG/ML 1 ML CARP\\VIAL IV PRN ×2 (19:19→19:51)
[2020-08-20 19:31] LABS: Basophils # (auto) 0.11 K/uL (0-0.2); Basophils % (auto) 1.6 %; Eosinophils # (auto) 0.52 K/uL (0-0.5); Eosinophils % (auto) 7.4 %; Hematocrit (blood only) 39.4 % (37-47); Hemoglobin 13.3 g/dL (12.0-16.0); Immature Granulocytes # (auto) 0.01 K/uL (0.00-0.02); Immature Granulocytes % (auto) 0.1 %; Lymphocytes # (auto) 2.59 K/uL (1.2-3.4); Mean Corpuscular Hemoglobin 33.3 pg (25-34); Mean Corpuscular Hgb Conc 33.8 g/dL (32-36); Mean Corpuscular Volume 98.7 fL (80-100); Mean Platelet Volume 9.2 fL (7.4-10.4); Monocytes # (auto) 0.39 K/uL (0.11-0.59); Monocytes % (auto) 5.6 %; Neutrophils # (auto) 3.38 K/uL (1.4-6.5); Neutrophils % (auto) 48.3 %; Platelet Count 357 K/uL (130-400); RDW Coefficient of Variation 12.5 % (11.5-14.5); RDW Standard Deviation 45.5 fL (36.4-46.3); Red Blood Count 3.99 M/uL (4.2-5.4)
[2020-08-20 19:48] LABS: Albumin Level 3.9 gm/dl (3.4-5.0); BUN Creatinine Ratio 26.9 (10-20); Calcium 9.2 mg/dl (8.5-10.1); Creatinine Clr Calc Pharmacy 104.5 ml/min; Est GFR (Non-African American) 103.5; Potassium 3.4 mmol/L (3.5-5.1)
[2020-08-20 19:51] LABS: Albumin Globulin Ratio 1.4 (0.9-2); Bilirubin,Total 0.2 mg/dl (0.2-1); Globulin 2.9 gm/dl (2.5-4.0); Total Protein 6.8 gm/dl (6.4-8.2)
--- NOTE | 2020-08-20 19:52 | CT Scan Report ---
CT OF THE ABDOMEN AND PELVIS WITHOUT CONTRAST CLINICAL HISTORY: right flank pain, recent stent COMPARISON STUDY: CT of the abdomen and pelvis August 02, 2020. Fluoroscopic images from retrograde e xam August 15, 2020. TECHNIQUE: Axial images of the abdomen and pelvis were obtained without IV contrast. Images were revi ewed in the axial, sagittal, and coronal planes. Automated exposure control was utilized for the robert dy. A dose lowering technique was utilized adhering to the principles of ALARA. FINDINGS: Lung bases are unremarkable. Moderate right hydroureteronephrosis is noted. A right uretera l stent is in place. No renal, ureteral or bladder calculi are present. There is no left hydronephros is. Bladder is moderately distended. A small amount of gas within the bladder is noted. There is mild right perinephric and periureteral infiltration. Evaluation of the remainder of the abdomen and pelv is is suboptimal on this unenhanced study. The liver, spleen, adrenal glands and pancreas are unremar kable. There is no evidence for a bowel obstruction. The appendix is normal. No lymphadenopathy is pr esent. There are no suspicious osseous lesions within visualized skeletal structures. IMPRESSION: 1. Moderate right hydroureteronephrosis of indeterminate etiology. Right ureteral stent in place. Mil d right perinephric and periureteral infiltration. No urinary calculi. 2. Moderate distention of the bladder. Trace gas within the bladder which is likely related to recent procedure. 3. No bowel obstruction. Normal appendix. ACT 112: Negative or not required by law. Electronically signed by: Parvez Ahn M.D. 08/20/2020 7:51 PM
[2020-08-20 20:06] LABS: Appearance Urine Clear (Clear); Bilirubin Urine Negative (Negative); Blood Urine 3+ (Negative); Color Urine Orange; Glucose Urine UA Negative (Negative); Ketones Urine Negative (Negative); Leukocyte Esterase Urine 2+ (Negative); Nitrite Urine Negative (Negative); Protein Urine 2+ (Negative); Specific Gravity Urine 1.008 (1.000-1.030); Urobilinogen Urine Negative (Negative); pH Urine 6.5 (4.5-7.5)
[2020-08-20 20:23] LABS: Cast Urine Automated 0 /lpf (0-5); RBC Urine Automated >30 /hpf (0-4)
[2020-08-20] MEDS ORDERED: HYDROmorphone INJ 1 MG/ML SYRINGE IV PRN (20:23)
[2020-08-20 20:24] LABS: Bacteria Urine Automated Negative (Negative); Calcium Oxalate Crystals Urine Present (None Prsent)
[2020-08-20] MEDS ORDERED: PHENAZOPYRIDINE HCL 200 MG TAB PO STA (20:41)
[2020-08-20] MEDS ORDERED: BELLADONNA/OPIUM SUPP 60 MG SUPP PR ONE (20:42)
--- NOTE | 2020-08-20 22:09 | History & Physical Report ---
Date of Service August 20, 2020 Assessment & Plan (1) Hydronephrosis, right: 50 yo F with extensive urologic hx including urinary retention, multiple UTIs, s/p ureteral stent placement admitted for acute flank pain due to right hydronephrosis with stent in place. 1. Right Hydronephrosis s/o Ureteral Stent Placement - stent placed / with Dr. Pereira. Op report describing tortuous R ureter, multiple bladder lesions, thickened bladder base. - CT A/P showing stent in place w/o obstruction today, distended bladder, R hydronephrosis - monitor I/O - appreciate urology recommendations regarding hydronephrosis and bladder decompression - continue home oxybutynin 5 mg BID, tamsulosin daily for urinary retention - BMP unremarkable 2. Dysuria - UA with 2+ blood, 2+ LE w/o bacteria, no nitrite, +epithelial cells, WBC, RBC, calcium oxalate crystals - previous urine cultures E. Coli sensitive to most abx - started on IV ceftriaxone 1g daily for complicated UTI - urine culture from 08/17 growing lactobacillous, recultured 08/20 - pending. culture from today ordered. - WBC unremarkable, vitals WNL & stable 3. Pain Management - hx cervical spinal fusion, chronic low back pain, acute spasmodic and pressured abdominal pain - home PO toradol replaced with IV toradol Q6H - continue pyridium, gabapentin, percocet 7.5/325 from home - flexeril QHS for muscle pain/tension, toradol as above - dilaudid 1 mg IV Q3H prn for severe pain Migraines - fioricet PRN, propranolol 80 mg HS Anxiety/Depression - cont klonopin 1 mg PO BID prn home dose - cont zoloft 75 QAM, welbutrin 150, buspar 20 (2) S/P ureteral stent placement: (3) Dysuria: (4) NEL (generalized anxiety disorder): (5) Urge and stress incontinence: (6) S/P cervical spinal fusion: (7) MDD (major depressive disorder): History of Present Illness 50 yo F hx urinary distension, R hydronephrosis, cervicalgia, NEL, MDD, recent placement of UVJ R sided stent presenting to ER for worsening abdominal pressure and pain. Had a cystoscopy with hydrodistension and TURBT, biopsy and fulguration of lesions, and stent placement on 08/[address] Pereira. Findings included hypervascularity with multiple lesions, tortuous R ureter, thickening of base of bladder. Pt says her pain and abdominal fullness has not improved since the procedure. Describes sensation of abdominal/suprapubic fullness, sharp pain going from urethra to right CVA, and pressure along the inferior portion of abdomen. States she has burning with urination, baseline pain that is increased when defecating even if not constipated. She states the pain "feels like labor pains, but 10x worse". Has tried tylenol, toradol PO, pyrimidine, gabapentin for management of pain at home without relief. Primary Care Provider: ARGELIA Vanegas Allergies Allergy/AdvReac Type Severity Reaction Status Date / Time rizatriptan Allergy Severe Difficulty Verified 08/20/20 19:31 Breathing benzoin Allergy Unknown USED TO Verified 08/20/20 19:31 PUT UNDER STERI STRIPS TO KEEP THEM ON -- BLISTERS tramadol AdvReac Mild N/V Verified 08/20/20 19:31 Home Medications Medication Instructions Recorded Confirmed Type clonazepam 1 mg PO BID PRN 02/10/18 08/20/20 History cyanocobalamin (vitamin B-12) 5,000 mcg SUBLINGUAL QAM 03/10/18 08/20/20 History [Vitamin B-12] vvycildal-alyflpk-mwqeo acid 2 tab PO HS 03/10/18 08/20/20 History multivitamin 2 tab PO QAM 03/10/18 08/20/20 History buspirone 20 mg PO BID 07/21/18 08/20/20 History acetaminophen [Tylenol Extra 1,000 mg PO Q6H PRN 09/19/19 08/20/20 History Strength] bupropion HCl [Wellbutrin XL] 150 mg PO QAM 09/19/19 08/20/20 History ibuprofen [Advil] 400 - 600 mg PO Q6H PRN 09/19/19 08/20/20 History yfndwtmhtu-coxewwpyhdahf-ldkwebos 1 - 2 tab PO Q6 PRN 30 Days #9 tab 05/23/20 08/20/20 Rx 50 mg-325 mg-40 mg tablet gabapentin 400 mg PO QID 06/26/20 08/20/20 History potassium chloride [Klor-Con M20] 20 meq PO BID #14 tab 06/26/20 08/20/20 Rx sertraline 75 mg PO QAM 06/26/20 08/20/20 History propranolol 80 mg PO HS 08/05/20 08/20/20 History doxycycline hyclate 100 mg PO BID #20 tab 08/15/20 08/20/20 Rx phenazopyridine [Pyridium] 200 mg PO Q8H PRN #10 tab 08/15/20 08/20/20 Rx tamsulosin 0.4 mg PO HS #30 cap 08/15/20 08/20/20 Rx oxybutynin chloride 5 mg tablet 5 mg PO BID PRN #20 tab 08/17/20 08/20/20 Rx oxycodone-acetaminophen 7.5 mg-325 1 tab PO Q8H PRN #7 tab 08/17/20 08/20/20 Rx mg tablet ketorolac 10 mg tablet 10 mg PO BID PRN 5 Days #10 tab 08/18/20 08/20/20 Rx Past Med/Surg History Medical History (Updated 08/21/20 @ 00:37 by Bethany Denise MD) Abnormal mammogram Actinic keratosis Allergic conjunctivitis Cervical disc herniation (02/18/14) Cervical radiculopathy GOOD ROM PER PT Chronic low back pain Chronic neck pain Classic migraine with aura Disc degeneration, lumbar Dysuria Facial contusion HX Head trauma Inconclusive mammogram MDD (major depressive disorder) Migraine [place] Neoplasm of uncertain behavior of skin Osteoarthritis Peripheral neuropathy Radicular pain of left lower extremity Urge and stress incontinence Urinary retention Vaginal atrophy Viral warts Surgical History (Updated 08/21/20 @ 00:37 by Bethany Denise MD) History of breast biopsy History of cystoscopy History of esophagogastroduodenoscopy (EGD) History of robot-assisted laparoscopic hysterectomy Hx of lumpectomy LEFT (BENIGN) S/P cervical spinal fusion C4-C5 & C5-C6. TOTAL OF 3 FUSIONS (SunnyBump). LIMITED RANGE TO LEFT. HAS BEEN INTUBATED SINCE. 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 Beliefs That Will Affect Care: None Current Living Situation: Spouse and Family Other Information That Helps Us Care for You: No Feels Safe at Home: Yes Safety Concerns: Feels Safe At This Time Assistive Devices: Contacts and Glasses Review of Systems Constitutional: no fever, no chills, no sweats and no fatigue Respiratory: no cough and no dyspnea Cardiovascular: no chest pain, no palpitations and no edema Gastrointestinal: + abdominal pain, + bloating, + nausea and + cramping; no vomiting, no excessive flatulence and no change in bowel habits Genitourinary: + dysuria, + urinary hesitancy and + pelvic pain Musculoskeletal: + back pain Psychiatric: + anxiety Physical Exam Physical Exam: Constitutional: thin, uncomfortable appearing middle aged female in position on bed Eyes: EOMI, pupils equal and reactive bilaterally, no scleral icterus Cardiac: RRR, no murmurs, gallops or rubs. Normal S1, S2 Pulm: CTA BL, no wheezes, rhonchi, crackles or rubs, moving air well throughout both lungs Abd: TTP in suprapubic, RLQ, RUQ. No epigastric or left sided tenderness back: extremly TTP of right CVA. left nontender. Extremities: 2+ peripheral pulses, no edema Neuro: no focal deficits, moving all 4 limbs, A&Ox3 Results & Data Results & Data ([facility]) Vital Signs (Past 12 Hours) Vital Signs Pulse Pulse Resp BP BP Pulse Ox 08/20/20 21:00 84 20 140/84 100 08/20/20 18:55 86 20 138/78 94 Laboratory Results WBC 7.00 K/uL (4.8-10.8) 08/20/20 19:20 RBC 3.99 M/uL (4.2-5.4) L 08/20/20 19:20 Hgb 13.3 g/dL (12.0-16.0) 08/20/20 19:20 Hct 39.4 % (37-47) 08/20/20 19:20 MCV 98.7 fL (80-100) 08/20/20 19:20 MCH 33.3 pg (25-34) 08/20/20 19: MCHC 33.8 g/dL (32-36) 08/20/20 19:20 RDW Std Deviation 45.5 fL (36.4-46.3) 08/20/20 19:20 RDW Coeff of Angelique 12.5 % (11.5-14.5) 08/20/20 19:20 Plt Count 357 K/uL (130-400) 08/20/20 19:20 MPV 9.2 fL (7.4-10.4) 08/20/20 19:20 Immature Gran % (Auto) 0.1 % 08/20/20 19:20 Neut % (Auto) 48.3 % 08/20/20 19:20 Lymph % (Auto) 37.0 % 08/20/20 19:20 [place] % (Auto) 5.6 % 08/20/20 19:20 Eos % (Auto) 7.4 % 08/20/20 19:20 Baso % (Auto) 1.6 % 08/20/20 19:20 Neut # (Auto) 3.38 K/uL (1.4-6.5) 08/20/20 19:20 Lymph # (Auto) 2.59 K/uL (1.2-3.4) 08/20/20 19:20 [place] # (Auto) 0.39 K/uL (0.11-0.59) 08/20/20 19:20 Eos # (Auto) 0.52 K/uL (0-0.5) H 08/20/20 19:20 Baso # (Auto) 0.11 K/uL (0-0.2) 08/20/20 19:20 Immature Gran # (Auto) 0.01 K/uL (0.00-0.02) 08/20/20 19:20 Sodium 140 mmol/L (136-145) 08/20/20 19:20 Potassium 3.4 mmol/L (3.5-5.1) L 08/20/20 19:20 Chloride 108 mmol/L (98-107) H 08/20/20 19:20 Carbon Dioxide 29 mmol/L (21-32) 08/20/20 19:20 Anion Gap 3.0 (3-11) 08/20/20 19:20 BUN 17 mg/dl (7-18) 08/20/20 19:20 Creatinine 0.65 mg/dl (0.6-1.2) 08/20/20 19:20 Est Cr Clr Drug Dosing 104.5 ml/min 08/20/20 19:20 Est GFR ( Amer) 120.0 08/20/20 19:20 Est GFR (Non-Af Amer) 103.5 08/20/20 19:20 BUN/Creatinine Ratio 26.9 (10-20) H 08/20/20 19:20 Glucose 87 mg/dl (70-99) 08/20/20 19:20 Calcium 9.2 mg/dl (8.5-10.1) 08/20/20 19:20 Total Bilirubin 0.2 mg/dl (0.2-1) 08/20/20 19:20 AST 9 U/L (15-37) L 08/20/20 19:20 ALT 17 U/L (12-78) 08/20/20 19:20 Alkaline Phosphatase 69 U/L (45-117) 08/20/20 19:20 Total Protein 6.8 gm/dl (6.4-8.2) 08/20/20 19:20 Albumin 3.9 gm/dl (3.4-5.0) 08/20/20 19:20 Globulin 2.9 gm/dl (2.5-4.0) 08/20/20 19:20 Albumin/Globulin Ratio 1.4 (0.9-2) 08/20/20 19:20 Lipase 73 U/L (73-393) 08/20/20 19:20 Urine Color [place] 08/20/20 19:20 Urine Appearance Clear (Clear) 08/20/20 19:20 Urine pH 6.5 (4.5-7.5) 08/20/20 19:20 Ur Specific [place] 1.008 (1.000-1.030) 08/20/20 19:20 Urine Protein 2+ (Negative) H 08/20/20 19:20 Urine Glucose (UA) Negative (Negative) 08/20/20 19:20 Urine Ketones Negative (Negative) 05/08/21 19:20 Urine Blood 3+ (Negative) H 08/20/20 19:20 Urine Nitrite Negative (Negative) 08/20/20 19:20 Urine Bilirubin Negative (Negative) 08/20/20 19:20 Urine Urobilinogen Negative (Negative) 08/20/20 19:20 Ur Leukocyte Esterase 2+ (Negative) H 08/20/20 19:20 Urine WBC (Auto) 5-10 /hpf (0-5) H 08/20/20 19:20 Urine RBC (Auto) >30 /hpf (0-4) H 08/20/20 19:20 U Hyaline Cast (Auto) 0 /lpf (0-5) 08/20/20 19:20 U Epithel Cells (Auto) 5-10 /lpf (0-5) H 08/20/20 19:20 Urine Bacteria (Auto) Negative (Negative) 08/20/20 19:20 Urine Crystals Calcium Oxalate (None Prsent) A 08/20/20 19:20 Calcium Oxalate Crystal Present (None Prsent) A 08/20/20 19:20 Urine Yeast Not Reportable 08/20/20 19:20 COVID-19 Eval Order CovFluRsv at [facility] 08/20/20 22:06 SARS-CoV-2 (PCR) NEGATIVE (Negative) 08/20/20 22:06 Influenza Type A (PCR) Negative (Neg) 08/20/20 22:06 Influenza Type B (PCR) Negative (Neg) 08/20/20 22:06 RSV (RT-PCR) Negative (Neg) 08/20/20 22:06 Impressions Abdomen/Pelvis CT 08/20/20 19:08 CT OF THE ABDOMEN AND PELVIS WITHOUT CONTRAST CLINICAL HISTORY: right flank pain, recent stent COMPARISON STUDY: CT of the abdomen and pelvis August 02, 2020. Fluoroscopic images from retrograde exam August 15, 2020. TECHNIQUE: Axial images of the abdomen and pelvis were obtained without IV contrast. Images were reviewed in the axial, sagittal, and coronal planes. Automated exposure control was utilized for the study. A dose lowering technique was utilized adhering to the principles of ALARA. FINDINGS: Lung bases are unremarkable. Moderate right hydroureteronephrosis is noted. A right ureteral stent is in place. No renal, ureteral or bladder calculi are present. There is no left hydronephrosis. Bladder is moderately distended. A small amount of gas within the bladder is noted. There is mild right perinephric and periureteral infiltration. Evaluation of the remainder of the abdomen and pelvis is suboptimal on this unenhanced study. The liver, spleen, adrenal glands and pancreas are unremarkable. There is no evidence for a bowel o bstruction. The appendix is normal. No lymphadenopathy is present. There are no suspicious osseous lesions within visualized skeletal structures. IMPRESSION: 1. Moderate right hydroureteronephrosis of indeterminate etiology. Right ureteral stent in place. Mild right perinephric and periureteral infiltration. No urinary calculi. 2. Moderate distention of the bladder. Trace gas within the bladder which is likely related to recent procedure. 3. No bowel obstruction. Normal appendix. ACT 112: Negative or not required by law. Electronically signed by: Parvez Ahn M.D. 08/20/2020 7:51 PM
[2020-08-20 23:06] LABS: Influenza A virus by PCR Negative (Neg); Influenza B virus by PCR Negative (Neg); RSV by PCR Negative (Neg); SARS CoV2 RNA(COVID-19) InHosp NEGATIVE (Negative)
[2020-08-20] MEDS ORDERED: KETOROLAC TROMETHAMINE 15 MG/ML VIAL IV STA (23:49)
[2020-08-21] MEDS ORDERED: CYCLOBENZAPRINE HCL 5 MG TAB PO STA (00:07)
[2020-08-21] MEDS ORDERED: CYCLOBENZAPRINE HCL 5 MG TAB PO PRN (00:16)
[2020-08-21] MEDS ORDERED: BUTALBITAL/ACETAMIN/CAFFEINE TAB PO PRN (00:16)
[2020-08-21] MEDS ORDERED: OXYBUTYNIN CHLORIDE 5 MG TAB PO PRN (00:16)
[2020-08-21] MEDS: HYDROmorphone INJ 1 MG/ML SYRINGE IV PRN ×8 (00:42→21:46)
[2020-08-21] MEDS ORDERED: GABAPENTIN 400 MG CAP PO ONE (00:45)
[2020-08-21] MEDS ORDERED: TAMSULOSIN HCL 0.4 MG CAP PO ONE (00:45)
[2020-08-21] MEDS ORDERED: ALUMINUM/MAGNESIUM SUSP 30 ML UDC PO PRN (01:02)
[2020-08-21] MEDS ORDERED: MAGNESIUM HYDROXIDE SUSP 30 ML UDC PO PRN (01:02)
[2020-08-21] MEDS ORDERED: ACETAMINOPHEN 500 MG TAB PO PRN (01:06)
[2020-08-21] MEDS: cefTRIAXone SODIUM 1,000 MG in DEXTROSE 5% 50 ML IV SCH (01:13)
[2020-08-21] MEDS: OXYBUTYNIN CHLORIDE 5 MG TAB PO SCH ×2 (01:26→21:48)
--- NOTE | 2020-08-21 07:05 | Hospitalist Progress Note ---
Date of Service August 21, 2020 Assessment & Plan (1) Hydronephrosis, right: 50 yo F with extensive urologic hx including urinary retention, multiple UTIs, s/p ureteral stent placement admitted for acute flank pain due to right hydronephrosis with stent in place. 1. Right Hydronephrosis s/o Ureteral Stent Placement - stent placed /[address] Pereira. Op report describing tortuous R ureter, multiple bladder lesions, thickened bladder base. - CT A/P showing stent in place w/o obstruction/etiology, distended bladder, R hydronephrosis; Calcium oxalate crystals in UA but none visualized on CT Abd/Pevlis without contrast. - BMP unremarkable - CBC unremarkable, WBC 7. - continue home oxybutynin 5 mg BID, tamsulosin daily for urinary retention - Acute worsening of pain likely from stent placement - urology evaluation done. Belladone/opium rectal suppository retrial. Didn't insert it properly at home. - If continues to have pain - urology may consider removal of stent. - Continue pain control with current meds as listed below. 2. Dysuria - possibly sec to UTI/oxalate crystals - UA with 2+ blood, 2+ LE w/o bacteria, no nitrite, +epithelial cells, WBC, RBC, calcium oxalate crystals - previous urine cultures E. Coli sensitive to most abx - started on IV ceftriaxone 1g daily for complicated UTI - urine culture from 08/17 growing lactobacillous >100,000 CFU with no sensitivities to follow - recultured 08/20 - pending. culture from current visit pending. - WBC unremarkable, vitals WNL & stable, afebrile 3. Pain Management - hx cervical spinal fusion, chronic low back pain, acute spasmodic and pressured abdominal pain - home PO toradol replaced with IV toradol Q6H - continue pyridium, gabapentin, percocet 7.5/325 from home - flexeril QHS for muscle pain/tension, toradol as above - dilaudid 1 mg IV Q3H prn for severe pain - Uncomfortable in pain at bedside this AM, provided with breakthrough dose of Dilaudid 1mg IV. Discussed that pain control may be inadequate to completely relieve pain from pressure of hydro in . Bonnie expressed understanding of this. Will continue to provide comfort until resolution. Migraines - fioricet PRN, propranolol 80 mg HS Anxiety/Depression - cont klonopin 1 mg PO BID prn home dose - cont zoloft 75 QAM, welbutrin 150mg, buspar 20mg DVT ppx: SCDs FEN/GI: regular diet, zofran IV PRN Code Status: Full Code Dispo: Med/Surg (2) S/P ureteral stent placement: (3) Dysuria: (4) NEL (generalized anxiety disorder): (5) Urge and stress incontinence: (6) S/P cervical spinal fusion: (7) MDD (major depressive disorder): Admission and Anticipated Discharge Date Admission Date: August 20, 2020 Supervising Physician Co-Signing Physician Notes Resident Physician Supervision Note: I independently interviewed and examined the patient and verified the delarosa history and physical, reviewed labs and image studies and agree with resident Dr. Blackwood findings and care plan. Subjective Noted to have persistent pelvic pain/pressure that radiates to right flank and back. Notes that having urgency and dysuria. No fever or chills. Denies chest pain or short of breath. Tearful and anxious from stress of current illness. She notes that pain analgesics transiently improve pain for short duration. Physical Exam Constitutional: cooperative; no acute distress appears uncomfortable, guards lower abdomen by holding with arms, non-toxic, tearful but easily consolable. Eyes: PERRL, conjunctivae normal, anicteric sclerae ENMT: external ear and nose normal, oropharynx normal Neck: trachea midline, no thyromegaly Respiratory: normal respiratory effort, lungs clear to auscultation Cardiovascular: RRR, no murmur, no edema Gastrointestinal (Abdomen): Percussion/Palpation: + abdomen tender (pelvic without rebound) Musculoskeletal: Head/Neck/Chest: normocephalic and head atraumatic Skin: no rashes, warm and dry Neurologic: moves all extremities and awake Psychiatric: Orientation: alert and oriented x 3 appropriately tearful, easily consolable Results & Data Results & Data ([facility]) Vital Signs (Past 12 Hours) Vital Signs Temp Pulse Resp BP BP Pulse Ox 08/21/20 00:21 36.8 C 73 18 163/81 H 97 08/20/20 23:22 85 20 146/63 H 97 08/20/20 21:00 84 20 140/84 100 Laboratory Results Laboratory Results - last 24 hr 05/12/0308/20/20 08/20/20 19:20 19:20 19:20 WBC 7.00 RBC 3.99 L Hgb 13.3 Hct 39.4 MCV 98.7 MCH 33.3 MCHC 33.8 RDW Std Deviation 45.5 RDW Coeff of Angelique 12.5 Plt Count 357 MPV 9.2 Immature Gran % (Auto) 0.1 Neut % (Auto) 48.3 Lymph % (Auto) 37.0 [place] % (Auto) 5.6 Eos % (Auto) 7.4 Baso % (Auto) 1.6 Neut # (Auto) 3.38 Lymph # (Auto) 2.59 [place] # (Auto) 0.39 Eos # (Auto) 0.52 H Baso # (Auto) 0.11 Immature Gran # (Auto) 0.01 Sodium 140 Potassium 3.4 L Chloride 108 H Carbon Dioxide 29 Anion Gap 3.0 BUN 17 Creatinine 0.65 Est Cr Clr Drug Dosing 104.5 Est GFR ( Amer) 120.0 Est GFR (Non-Af Amer) 103.5 BUN/Creatinine Ratio 26.9 H Glucose 87 Calcium 9.2 Magnesium Total Bilirubin 0.2 AST 9 L ALT 17 Alkaline Phosphatase 69 Total Protein 6.8 Albumin 3.9 Globulin 2.9 Albumin/Globulin Ratio 1.4 Lipase 73 Urine Color [place] Urine Appearance Clear Urine pH 6.5 Ur Specific [place] 1.008 Urine Protein 2+ H Urine Glucose (UA) Negative Urine Ketones Negative Urine Blood 3+ H Urine Nitrite Negative Urine Bilirubin Negative Urine Urobilinogen Negative Ur Leukocyte Esterase 2+ H Urine WBC (Auto) 5-10 H Urine RBC (Auto) >30 H U Hyaline Cast (Auto) 0 U Epithel Cells (Auto) 5-10 H Urine Bacteria (Auto) Negative Urine Crystals Calcium Oxalate A Calcium Oxalate Crystal Present A Urine Yeast Not Reportable COVID-19 Eval Order SARS-CoV-2 (PCR) Influenza Type A (PCR) Influenza Type B (PCR) RSV (RT-PCR) 08/20/20 08/20/20 08/21/20 22:06 22:06 07:32 WBC 7.10 RBC 3.88 L Hgb 12.9 Hct 38.8 MCV 100.0 MCH 33.2 MCHC 33.2 RDW Std Deviation 46.3 RDW Coeff of Angelique 12.7 Plt Count 363 MPV 9.6 Immature Gran % (Auto) 0.1 Neut % (Auto) 44.1 Lymph % (Auto) 41.8 [place] % (Auto) 6.6 Eos % (Auto) 6.3 Baso % (Auto) 1.1 Neut # (Auto) 3.12 Lymph # (Auto) 2.97 [place] # (Auto) 0.47 Eos # (Auto) 0.45 Baso # (Auto) 0.08 Immature Gran # (Auto) 0.01 Sodium Potassium Chloride Carbon Dioxide Anion Gap BUN Creatinine Est Cr Clr Drug Dosing Est GFR ( Amer) Est GFR (Non-Af Amer) BUN/Creatinine Ratio Glucose Calcium Magnesium Total Bilirubin AST ALT Alkaline Phosphatase Total Protein Albumin Globulin Albumin/Globulin Ratio Lipase Urine Color Urine Appearance Urine pH Ur Specific [place] Urine Protein Urine Glucose (UA) Urine Ketones Urine Blood Urine Nitrite Urine Bilirubin Urine Urobilinogen Ur Leukocyte Esterase Urine WBC (Auto) Urine RBC (Auto) U Hyaline Cast (Auto) U Epithel Cells (Auto) Urine Bacteria (Auto) Urine Crystals Calcium Oxalate Crystal Urine Yeast COVID-19 Eval Order CovFluRsv at [facility] SARS-CoV-2 (PCR) NEGATIVE Influenza Type A (PCR) Negative Influenza Type B (PCR) Negative RSV (RT-PCR) Negative 08/21/20 07:32 WBC RBC Hgb Hct MCV MCH MCHC RDW Std Deviation RDW Coeff of Angelique Plt Count MPV Immature Gran % (Auto) Neut % (Auto) Lymph % (Auto) [place] % (Auto) Eos % (Auto) Baso % (Auto) Neut # (Auto) Lymph # (Auto) [place] # (Auto) Eos # (Auto) Baso # (Auto) Immature Gran # (Auto) Sodium 140 Potassium 3.1 L Chloride 106 Carbon Dioxide 28 Anion Gap 6.0 BUN 18 Creatinine 0.67 Est Cr Clr Drug Dosing 103.2 Est GFR ( Amer) 118.8 Est GFR (Non-Af Amer) 102.5 BUN/Creatinine Ratio 26.2 H Glucose 79 Calcium 8.8 Magnesium 2.2 Total Bilirubin AST ALT Alkaline Phosphatase Total Protein Albumin Globulin Albumin/Globulin Ratio Lipase Urine Color Urine Appearance Urine pH Ur Specific [place] Urine Protein Urine Glucose (UA) Urine Ketones Urine Blood Urine Nitrite Urine Bilirubin Urine Urobilinogen Ur Leukocyte Esterase Urine WBC (Auto) Urine RBC (Auto) U Hyaline Cast (Auto) U Epithel Cells (Auto) Urine Bacteria (Auto) Urine Crystals Calcium Oxalate Crystal Urine Yeast COVID-19 Eval Order SARS-CoV-2 (PCR) Influenza Type A (PCR) Influenza Type B (PCR) RSV (RT-PCR) Medications Administered Bupropion HCl (Bupropion Xl 150 Mg Tabcr) 150 mg PO QAM MARYLIN Stop: 09/20/20 08:59 Last Admin: 08/21/20 07:57 Dose: 150 mg Documented by: [id number] Buspirone HCl (Buspirone 5 Mg Tab) 20 mg PO BID MARYLIN Stop: 09/20/20 08:59 Last Admin: 08/21/20 07:55 Dose: 20 mg Documented by: [id number] Clonazepam (Clonazepam 1 Mg Tab) 1 mg PO BID PRN PRN Reason: Anxiety Stop: 09/20/20 00:15 Last Admin: 08/21/20 08:53 Dose: 1 mg Documented by: [id number] Cyanocobalamin (Cyanocobalamin (Vitamin B-12) 2,500 Mcg Tab.Subl) 5,000 mcg SL QAM [facility] Stop: 09/20/20 08:59 Last Admin: 08/21/20 07:54 Dose: 5,000 mcg Documented by: [id number] Gabapentin (Gabapentin 400 Mg Cap) 800 mg PO BID MARYLIN Stop: 09/20/20 08:59 Last Admin: 08/21/20 07:58 Dose: 800 mg Documented by: [id number] Hydromorphone HCl (Hydromorphone Inj 1 Mg/Ml Syringe) 1 mg IV Q3H PRN PRN Reason: Severe Pain Stop: 09/04/20 00:15 Last Admin: 08/21/20 08:48 Dose: 1 mg Documented by: [id number] Admin: 08/21/20 07:51 Dose: 1 mg Documented by: [id number] Admin: 08/21/20 04:20 Dose: 1 mg Documented by: [id number] Admin: 08/21/20 00:42 Dose: 1 mg Documented by: [id number] Ceftriaxone Sodium 1,000 mg/ (Dextrose) 50 mls @ 100 mls/hr IV Q24H MARYLIN; Protoc ol Stop: 08/31/20 00:59 Last Infusion: 08/21/20 01:43 Dose: 0 mls/hr Documented by: [id number] Admin: 08/21/20 01:13 Dose: 100 mls/hr Documented by: [id number] Multivitamins (Multivitamin Tab) 2 tab PO QAM MARYLIN Stop: 09/20/20 08:59 Last Admin: 08/21/20 07:57 Dose: 2 tab Documented by: [id number] Oxybutynin Chloride (Oxybutynin Chloride 5 Mg Tab) 5 mg PO BID MARYLIN Stop: 09/20/20 08:59 Last Admin: 08/21/20 01:26 Dose: 5 mg Documented by: [id number] Oxycodone/Acetaminophen (Oxycodone/Apap 7.5/325mg Tab) 1 tab PO Q8H PRN PRN Reason: pain Stop: 09/04/20 00:15 Last Admin: 08/21/20 07:54 Dose: 1 tab Documented by: [id number] Phenazopyridine HCl (Phenazopyridine Hcl 200 Mg Tab) 200 mg PO Q8H PRN PRN Reason: pain Stop: 09/20/20 00:15 Last Admin: 08/21/20 07:54 Dose: 200 mg Documented by: [id number] Polyethylene Glycol (Polyethylene (Miralax) 17 Gm Pack) 17 gm PO DAILY MARYLIN Stop: 09/20/20 08:59 Last Admin: 08/21/20 08:09 Dose: 17 gm Documented by: [id number] Sertraline HCl (Sertraline Hcl 50 Mg Tablet) 75 mg PO QAM MARYLIN Stop: 09/20/20 08:59 Last Admin: 08/21/20 07:55 Dose: 75 mg Documented by: [id number] Resident Activity Tracking Resident Involvement: Resident Care Provided Care Provided: Adult [facility]
[2020-08-21] MEDS: oxyCODONE/APAP 7.5/325MG TAB PO PRN ×2 (07:54→17:12)
[2020-08-21] MEDS: PHENAZOPYRIDINE HCL 200 MG TAB PO PRN ×2 (07:54→19:40)
[2020-08-21] MEDS: CYANOCOBALAMIN (VITAMIN B-12) 2,500 MCG TAB.SUBL SL SCH (07:54)
[2020-08-21] MEDS: busPIRone 5 MG TAB PO SCH ×2 (07:55→21:47)
[2020-08-21] MEDS: SERTRALINE HCL 50 MG TABLET PO SCH (07:55)
[2020-08-21] MEDS: buPROPion XL 150 MG TABCR PO SCH (07:57)
[2020-08-21] MEDS: MULTIVITAMIN TAB PO SCH (07:57)
[2020-08-21] MEDS: GABAPENTIN 400 MG CAP PO SCH ×2 (07:58→21:48)
[2020-08-21] MEDS: POLYETHYLENE (MIRALAX) 17 GM PACK PO SCH (08:09)
[2020-08-21] MEDS ORDERED: HYDROmorphone INJ 1 MG/ML SYRINGE IV STA (08:27)
[2020-08-21 08:28] LABS: Basophils # (auto) 0.08 K/uL (0-0.2); Basophils % (auto) 1.1 %; Eosinophils # (auto) 0.45 K/uL (0-0.5); Eosinophils % (auto) 6.3 %; Hematocrit (blood only) 38.8 % (37-47); Hemoglobin 12.9 g/dL (12.0-16.0); Immature Granulocytes # (auto) 0.01 K/uL (0.00-0.02); Immature Granulocytes % (auto) 0.1 %; Lymphocytes # (auto) 2.97 K/uL (1.2-3.4); Lymphocytes % (auto) 41.8 %; Mean Corpuscular Hemoglobin 33.2 pg (25-34); Mean Corpuscular Hgb Conc 33.2 g/dL (32-36); Mean Platelet Volume 9.6 fL (7.4-10.4); Monocytes # (auto) 0.47 K/uL (0.11-0.59); Monocytes % (auto) 6.6 %; Neutrophils # (auto) 3.12 K/uL (1.4-6.5); Neutrophils % (auto) 44.1 %; Platelet Count 363 K/uL (130-400); RDW Coefficient of Variation 12.7 % (11.5-14.5); RDW Standard Deviation 46.3 fL (36.4-46.3); Red Blood Count 3.88 M/uL (4.2-5.4)
[2020-08-21] MEDS: clonazePAM 1 MG TAB PO PRN ×2 (08:53→21:46)
[2020-08-21] MEDS ORDERED: DOXYCYCLINE HYCLATE 100 MG CAP PO SCH (09:00)
[2020-08-21] MEDS ORDERED: OXYBUTYNIN CHLORIDE 5 MG TAB PO SCH (09:00)
[2020-08-21] MEDS ORDERED: GABAPENTIN 400 MG CAP PO SCH (09:00)
[2020-08-21 09:02] LABS: BUN Creatinine Ratio 26.2 (10-20); Calcium 8.8 mg/dl (8.5-10.1); Creatinine Clr Calc Pharmacy 103.2 ml/min; Est GFR (African American) 118.8; Est GFR (Non-African American) 102.5; Magnesium 2.2 mg/dl (1.8-2.4); Potassium 3.1 mmol/L (3.5-5.1)
[2020-08-21] MEDS: KETOROLAC TROMETHAMINE 15 MG/ML VIAL IV PRN ×2 (11:20→21:47)
--- NOTE | 2020-08-21 12:01 | Urology Consultation ---
Date of Consultation August 21, 2020 Assessment & Plan (1) Hydronephrosis, right: (2) Hematuria: (3) Dysuria: (4) Intractable abdominal pain: Severe pain. Imaging reviewed interpreted by myself. Stent in good position. No other major abnormality. Medication has been only minor relief. Complicated medical and surgical history. Reviewed and discussed. Previously had issues with pain after procedure. Had poorly tolerated stent in past. Severe and poor control. Labs reviewed. No sign of UTI on culture. Blood expected. Discussed options. Will attempt to optomize pain management. If unable to tolerate, plan to remove stent tomorrow in OR. Patient undergoing supportive care and hydration. Recommended changes discussed and can trial. Risks and benefits discussed at length for procedure. These include bleeding, infection, injury to surrounding tissues or organs, and risks associated with anesthesia. Patient states understanding and agrees to proceed. Will sign consent and schedule for removal of stent tomorrow. History of Present Illness Attending Physician: Mariel Sanchez MD History of Present Illness New consultation for well known patient with severe pain after procedure with discomfort, obstruction, and ill feelings. Patient developed sudden onset of pain into flank going down and radiating into groin and back in waves comes and goes. Has been going on since procedure but got considerably worse over last few days. Can be severe/debilitating at times. Discussed and reviewed patient's family history for any history of stone disease. Also, discussed patient's medical surgery history especially related to any history of urinary issues or stone disease. Patient was admitted and is undergoing observation. Imaging showed no considerable issues. Stent in position. Allergies Allergy/AdvReac Type Severity Reaction Status Date / Time rizatriptan Allergy Severe Difficulty Verified 08/20/20 19:31 Breathing benzoin Allergy Unknown USED TO Verified 08/20/20 19:31 PUT UNDER STERI STRIPS TO KEEP THEM ON -- BLISTERS tramadol AdvReac Mild N/V Verified 08/20/20 19:31 Home Medications Medication Instructions Recorded Confirmed Type clonazepam 1 mg PO BID PRN 02/10/18 08/20/20 History cyanocobalamin (vitamin B-12) 5,000 mcg SUBLINGUAL QAM 03/10/18 08/20/20 History [Vitamin B-12] rdvmnrrmn-ytttnci-dtmvf acid 2 tab PO HS 03/10/18 08/20/20 History multivitamin 2 tab PO QAM 03/10/18 08/20/20 History buspirone 20 mg PO BID 07/21/18 08/20/20 History acetaminophen [Tylenol Extra 1,000 mg PO Q6H PRN 09/19/19 08/20/20 History Strength] bupropion HCl [Wellbutrin XL] 150 mg PO QAM 09/19/19 08/20/20 History ibuprofen [Advil] 400 - 600 mg PO Q6H PRN 09/19/19 08/20/20 History glxmbvxkox-zvdplhkxlqpay-rbcppqup 1 - 2 tab PO Q6 PRN 30 Days #9 tab 05/23/20 08/20/20 Rx 50 mg-325 mg-40 mg tablet gabapentin 800 mg PO BID 06/26/20 08/21/20 History potassium chloride [Klor-Con M20] 20 meq PO BID #14 tab 06/26/20 08/20/20 Rx sertraline 75 mg PO QAM 06/26/20 08/20/20 History propranolol 80 mg PO HS 08/05/20 08/20/20 History doxycycline hyclate 100 mg PO BID #20 tab 08/15/20 08/20/20 Rx phenazopyridine [Pyridium] 200 mg PO Q8H PRN #10 tab 08/15/20 08/20/20 Rx tamsulosin 0.4 mg PO HS #30 cap 08/15/20 08/20/20 Rx oxybutynin chloride 5 mg tablet 5 mg PO BID PRN #20 tab 08/17/20 08/20/20 Rx oxycodone-acetaminophen 7.5 mg-325 1 tab PO Q8H PRN #7 tab 08/17/20 08/20/20 Rx mg tablet ketorolac 10 mg tablet 10 mg PO BID PRN 5 Days #10 tab 08/18/20 08/20/20 Rx Patient History Medical History Abnormal mammogram Actinic keratosis Allergic conjunctivitis Cervical disc herniation (02/18/14) Cervical radiculopathy GOOD ROM PER PT Chronic low back pain Chronic neck pain Classic migraine with aura Disc degeneration, lumbar Dysuria Facial contusion HX Head trauma Inconclusive mammogram MDD (major depressive disorder) Migraine Mittelschmerz Neoplasm of uncertain behavior of skin Osteoarthritis Peripheral neuropathy Radicular pain of left lower extremity Urge and stress incontinence Urinary retention Vaginal atrophy Viral warts Surgical History History of breast biopsy History of cystoscopy History of esophagogastroduodenoscopy (EGD) History of robot-assisted laparoscopic hysterectomy Hx of lumpectomy LEFT (BENIGN) S/P cervical spinal fusion C4-C5 & C5-C6. TOTAL OF 3 FUSIONS ([employer]). LIMITED RANGE TO LEFT. HAS BEEN INTUBATED SINCE. Cervical Arthroplasty C4-C5 02/18/14: MAC #3, ETT #7.0, Grade 1 View, Smooth intubation on 1st attempt S/P hardware removal CERVICAL Family History Father Cardiac disorder Malignant neoplasm of colon Prostate cancer Aunt Breast cancer Social History Smoking Status: Never smoker Second Hand Exposure: No; Hx Alcohol Use: Yes Alcohol type: beer, wine and hard liquor Hx Substance Use: No Preferred Language: Hungarian Communication Ability: Effective Child Care Attendant School Required: No Beliefs That Will Affect Care: None Current Living Situation: Spouse and Family Other Information That Helps Us Care for You: No Feels Safe at Home: Yes Safety Concerns: Feels Safe At This Time Assistive Devices: None Review of Systems Review of Systems: All systems reviewed & are unremarkable except as noted in HPI & below Physical Exam Physical Exam: General: Alert and oriented x 3 in no acute distress. Patient is well nourished and well kept. HEENT: Normocephalic Atraumatic. Inspection normal. Cranial Nerves 2-12 Grossly intact. Nares are clear. Neck is supple. Normal inspection of face. Normal inspection of neck. Neurologic: No deficits on inspection. Baseline for motor function and sensory. Psychologic: Normal affect. Respiratory: Nonlabored. No use of accessory muscles. No tachypnea or dyspnea. Cardiovascular: No tachycardia Skin: [place] and Dry. No rashes or visible lesions. Extremities: Moving without issues. No motor deficits on inspection Lymphatics: No edema Abdomen: Soft Non-distended. No acites. No rebound or guarding. Results & Data ([facility]) Vital Signs (Past 12 Hours) Vital Signs Temp Pulse Resp BP BP Pulse Ox 05/09/21 07:41 36.7 C 89 18 133/76 99 08/21/20 00:21 36.8 C 73 18 163/81 H 97 PG Care Time/CCT Total # of Minutes Spent Total Time Spent with Patient: Total time spent is greater than 50% in coordination of care (as documented) at patient's floor/unit and/or counseling patient: Coding Level of Care Code 66121 Inpt Consult Level 5 Diagnoses Hydronephrosis, right N13.30 Hematuria R31.9 Dysuria R30.0 Intractable abdominal pain R10.9
[2020-08-21] MEDS ORDERED: BELLADONNA/OPIUM SUPP 60 MG SUPP PR PRN (12:02)
[2020-08-21] MEDS ORDERED: HYDROmorphone INJ 2 MG/ML SYR/VIAL IV STA (14:45)
[2020-08-21] MEDS ORDERED: MAGNESIUM PO SCH (21:00)
[2020-08-21] MEDS ORDERED: CALCIUM PO SCH (21:00)
[2020-08-21] MEDS ORDERED: FOLIC ACID PO SCH (21:00)
--- NOTE | 2020-08-21 21:38 | Billing Data ---
Date of Service August 20, 2020 Coding Level of Care Code 59548 Initial Inpt Care Lvl 3
[2020-08-21] MEDS: PROPRANOLOL HCL LA 80 MG CAPCR PO SCH (21:48)
[2020-08-21] MEDS: TAMSULOSIN HCL 0.4 MG CAP PO SCH (21:49)
[2020-08-22] MEDS: HYDROmorphone INJ 1 MG/ML SYRINGE IV PRN ×7 (00:28→21:30)
[2020-08-22] MEDS: cefTRIAXone SODIUM 1,000 MG in DEXTROSE 5% 50 ML IV SCH (00:46)
[2020-08-22] MEDS: oxyCODONE/APAP 7.5/325MG TAB PO PRN ×2 (01:16→10:19)
[2020-08-22] MEDS: KETOROLAC TROMETHAMINE 15 MG/ML VIAL IV PRN ×2 (06:12→21:29)
[2020-08-22] MEDS: PHENAZOPYRIDINE HCL 200 MG TAB PO PRN ×2 (06:12→15:30)
[2020-08-22 06:40] LABS: Basophils % (auto) 1.9 %; Eosinophils # (auto) 0.44 K/uL (0-0.5); Eosinophils % (auto) 8.5 %; Hematocrit (blood only) 35.4 % (37-47); Hemoglobin 11.6 g/dL (12.0-16.0); Immature Granulocytes # (auto) 0.01 K/uL (0.00-0.02); Immature Granulocytes % (auto) 0.2 %; Lymphocytes % (auto) 46.3 %; Mean Corpuscular Hemoglobin 33.5 pg (25-34); Mean Corpuscular Hgb Conc 32.8 g/dL (32-36); Mean Corpuscular Volume 102.3 fL (80-100); Mean Platelet Volume 9.5 fL (7.4-10.4); Monocytes # (auto) 0.44 K/uL (0.11-0.59); Monocytes % (auto) 8.5 %; Neutrophils # (auto) 1.79 K/uL (1.4-6.5); Neutrophils % (auto) 34.6 %; Platelet Count 340 K/uL (130-400); RDW Coefficient of Variation 12.6 % (11.5-14.5); RDW Standard Deviation 47.3 fL (36.4-46.3); Red Blood Count 3.46 M/uL (4.2-5.4); White Blood Count 5.18 K/uL (4.8-10.8)
[2020-08-22 07:32] LABS: Albumin Globulin Ratio 1.2 (0.9-2); Albumin Level 3.3 gm/dl (3.4-5.0); BUN Creatinine Ratio 24.2 (10-20); Bilirubin,Total 0.2 mg/dl (0.2-1); Calcium 8.2 mg/dl (8.5-10.1); Creatinine Clr Calc Pharmacy 106.3 ml/min; Est GFR (Non-African American) 103.5; Globulin 2.7 gm/dl (2.5-4.0); Potassium 3.8 mmol/L (3.5-5.1)
--- NOTE | 2020-08-22 08:55 | Urology Progress Note ---
Date of Service August 22, 2020 Assessment & Plan (1) Acute right flank pain: (2) S/P ureteral stent placement: 50 yo F POD #7 s/p cystoscopy with hydrodistension and TURBT, biopsy and fulguration of bladder lesions, B/L retrograde pyelogram, right URS with dilation and stent placement; admitted for intractable right flank pain. - Patient with ongoing severe pain related to right ureteral stent - She wishes to proceed with right ureteral stent removal today as previously discussed with Dr. Pereira - Continue supportive care - Keep NPO - Findings reviewed with Dr. Pereira. Given her intractable pain in the context of right ureteral stent, will proceed with OR for cystoscopy and right stent removal. - Risks and benefits to be reviewed with patient by Dr. Pereira. OR notified. - Will cover with IV Ciprofloxacin preoperatively - She is agreeable with the plan, all questions answered ATTENDING NOTE: Independently evaluated, assessed, examined, and consented. Agree with above note. Not improving. Considerable issues. Risks and benefits discussed at length for procedure. These include bleeding, infection, injury to surrounding tissues or organs, and risks associated with anesthesia. Understands risks of scarring, increased pain, bleeding, and other issues with early removal of stent. Patient states understanding and agrees to proceed. Will sign consent and proceed. Cystoscopy with right stent removal . Admission and Anticipated Discharge Date Admission Date: August 20, 2020 Subjective Pt seen and examined at bedside this AM Sitting up in bed, resting with heating pad on abdomen Poorly tolerating right ureteral stent Reports right flank and abdominal discomfort Occasional dysuria, feels she is emptying bladder when she takes her time She is utilizing prn analgesics, notes relief for short duration Occasional nausea with increased pain, no vomiting; LBM yesterday NPO since midnight No fever or chills She would like to proceed with stent removal today. No additional concerns today. Chart review: Afebrile, creatinine 0.65, WBC 5.18. UC&S prelim no growth. On IV Ceftriaxone. Review of Systems Constitutional: as per Subjective / HPI Respiratory: no dyspnea Cardiovascular: no chest pain Gastrointestinal: as per Subjective / HPI Genitourinary: as per Subjective / HPI Physical Exam Constitutional: well developed and well nourished; no acute distress and not ill appearing Eyes: no scleral abnormality Neck: normal visual inspection Respiratory: normal respiratory effort and able to speak in complete sentences; no respiratory distress and no labored breathing Cardiovascular: Extremities: no pedal edema Gastrointestinal (Abdomen): Inspection/Auscultation: abdomen normal to inspection; abdomen not distended Musculoskeletal: Head/Neck/Chest: normocephalic and head atraumatic Skin: no rashes, warm and dry Neurologic: moves all extremities and awake Psychiatric: Orientation: alert and oriented x 3 tearful at times Results & Data ([facility]) Vital Signs (Past 12 Hours) Vital Signs Temp Pulse Resp BP Pulse Ox 08/22/20 07:28 36.8 C 83 16 137/69 96 08/22/20 00:18 36.6 C 85 16 133/69 98 PG Care Time/CCT Total # of Minutes Spent Total Time Spent with Patient: Total time spent is greater than 50% in coordination of care (as documented) at patient's floor/unit and/or counseling patient: Coding Level of Care Code 59188 Subseq Hosp Care Lvl 2 Diagnoses Acute right flank pain R10.9 S/P ureteral stent placement Z96.0
[2020-08-22] MEDS: busPIRone 5 MG TAB PO SCH ×2 (09:13→21:32)
[2020-08-22] MEDS: buPROPion XL 150 MG TABCR PO SCH (09:13)
[2020-08-22] MEDS: MULTIVITAMIN TAB PO SCH (09:16)
[2020-08-22] MEDS: SERTRALINE HCL 50 MG TABLET PO SCH (09:18)
[2020-08-22] MEDS: GABAPENTIN 400 MG CAP PO SCH ×2 (09:18→21:32)
[2020-08-22] MEDS: OXYBUTYNIN CHLORIDE 5 MG TAB PO SCH ×2 (09:18→21:30)
[2020-08-22] MEDS: clonazePAM 1 MG TAB PO PRN (09:35)
[2020-08-22] MEDS: POLYETHYLENE (MIRALAX) 17 GM PACK PO SCH (09:36)
[2020-08-22] MEDS ORDERED: CIPROFLOXACIN / D5W 400 MG/200 ML BAG IV SCH (10:00)
[2020-08-22] MEDS: CYANOCOBALAMIN (VITAMIN B-12) 2,500 MCG TAB.SUBL SL SCH (10:16)
[2020-08-22] MEDS: SODIUM CHLORIDE 0.9% 1000ML 1,000 ML IV SCH (10:25)
--- NOTE | 2020-08-22 11:59 | Anesthesiology Consultation ---
Date of Service August 22, 2020 Assessment & Plan Chart Review Chart Review: Acceptable Risk for Surgery Consults Requested none History Surgery Operation Date: 08/22/20 12:05 Proposed Procedures p Right Cystoscopy Removal Ureteral Stent - Chidi Pereira DO Height/Weight Height: 5 ft 8.5 in Weight: 67.7 kg Allergies Allergy/AdvReac Type Severity Reaction Status Date / Time rizatriptan Allergy Severe Difficulty Verified 08/20/20 19:31 Breathing benzoin Allergy Unknown USED TO Verified 08/20/20 19:31 PUT UNDER STERI STRIPS TO KEEP THEM ON -- BLISTERS tramadol AdvReac Mild N/V Verified 08/20/20 19:31 Medications Home Medications Medication Instructions Recorded Confirmed Last Taken clonazepam 1 mg PO BID PRN 02/10/18 08/20/20 08/14/20 21:00 cyanocobalamin (vitamin B-12) 5,000 mcg SUBLINGUAL QAM 03/10/18 08/20/20 04/01/20 [Vitamin B-12] kderxiekv-fsfhtst-klkpk acid 2 tab PO 03/10/18 08/20/20 03/31/20 multivitamin 2 tab PO QAM 03/10/18 08/20/20 04/01/20 buspirone 20 mg PO BID 07/21/18 08/20/20 08/14/20 08:00 acetaminophen [Tylenol Extra 1,000 mg PO Q6H PRN 09/19/19 08/20/20 Unknown Strength] bupropion HCl [Wellbutrin XL] 150 mg PO QAM 09/19/19 08/20/20 08/14/20 08:00 ibuprofen [Advil] 400 - 600 mg PO Q6H PRN 09/19/19 08/20/20 Unknown vrxkohfhju-btkyrxoaizctg-iyqcjkop 1 - 2 tab PO Q6 PRN 30 Days #9 tab 05/23/20 08/20/20 Unknown 50 mg-325 mg-40 mg tablet gabapentin 800 mg PO BID 06/26/20 08/21/20 08/14/20 21:00 potassium chloride [Klor-Con M20] 20 meq PO BID #14 tab 06/26/20 08/20/20 Unknown sertraline 75 mg PO QAM 06/26/20 08/20/20 08/14/20 08:00 propranolol 80 mg PO HS 08/05/20 08/20/20 Unknown doxycycline hyclate 100 mg PO BID #20 tab 08/15/20 08/20/20 Unknown phenazopyridine [Pyridium] 200 mg PO Q8H PRN #10 tab 08/15/20 08/20/20 Unknown tamsulosin 0.4 mg PO HS #30 cap 08/15/20 08/20/20 Unknown oxybutynin chloride 5 mg tablet 5 mg PO BID PRN #20 tab 08/17/20 08/20/20 Unknown oxycodone-acetaminophen 7.5 mg-325 1 tab PO Q8H PRN #7 tab 08/17/20 08/20/20 Unknown mg tablet ketorolac 10 mg tablet 10 mg PO BID PRN 5 Days #10 tab 08/18/20 08/20/20 Unknown Active Medications Generic Name Dose Route Start Last Admin Trade Name Freq PRN Reason Stop Dose Admin Belladonna Alkaloids/Opium 60 mg 08/21/20 12:02 08/21/20 15:03 Belladonna/Opium Supp 60 Mg Supp TX 09/04/20 12:01 60 mg Q8 PRN Administration Bladder pain Bupropion HCl 150 mg 08/21/20 09:00 08/22/20 09:13 Bupropion Xl 150 Mg Tabcr PO 09/20/20 08:59 150 mg QAM MARYLIN Administration Buspirone HCl 20 mg 08/21/20 09:00 08/22/20 09:13 Buspirone 5 Mg Tab PO 09/20/20 08:59 20 mg BID MARYLIN Administration Clonazepam 1 mg 08/21/20 00:16 08/22/20 09:35 Clonazepam 1 Mg Tab PO 09/20/20 00:15 1 mg BID PRN Administration Anxiety Cyanocobalamin 5,000 mcg 08/21/20 09:00 08/22/20 10:16 Cyanocobalamin (Vitamin B-12) 2,500 Mcg Tab.Subl SL 09/20/20 08:59 5,000 mcg QAM MARYLIN Administration Gabapentin 800 mg 08/21/20 09:00 08/22/20 09:18 Gabapentin 400 Mg Cap PO 09/20/20 08:59 800 mg BID MARYLIN Administration Hydromorphone HCl 1 mg 08/21/20 14:49 08/22/20 10:19 Hydromorphone Inj 1 Mg/Ml Syringe IV 09/04/20 00:15 1 mg Q2H PRN Administration Severe Pain Ceftriaxone Sodium 1,000 mg/ 50 mls @ 100 mls/hr 08/21/20 01:00 08/22/20 01:17 Dextrose IV 08/31/20 00:59 Infused Q24H MARYLIN Infusion Protocol Sodium Chloride 1,000 mls @ 80 mls/hr 08/22/20 09:15 08/22/20 10:25 Nss 1000ml IV 08/23/20 09:14 80 mls/hr .[id number] MARYLIN Administration Ketorolac Tromethamine 15 mg 08/21/20 10:58 08/22/20 06:12 Ketorolac Tromethamine 15 Mg/Ml Vial IV 08/26/20 10:57 15 mg Q6H PRN Administration Pain Multivitamins 2 tab 08/21/20 09:00 08/22/20 09:16 Multivitamin Tab PO 09/20/20 08:59 2 tab QAM MARYLIN Administration Oxybutynin Chloride 5 mg 08/21/20 09:00 08/22/20 09:18 Oxybutynin Chloride 5 Mg Tab PO 09/20/20 08:59 5 mg BID MARYLIN Administration Oxycodone/Acetaminophen 1 tab 08/21/20 00:16 08/22/20 10:19 Oxycodone/Apap 7.5/325mg Tab PO 09/04/20 00:15 1 tab Q8H PRN Administration pain Phenazopyridine HCl 200 mg 08/21/20 00:16 08/22/20 06:12 Phenazopyridine Hcl 200 Mg Tab PO 09/20/20 00:15 200 mg Q8H PRN Administration pain Polyethylene Glycol 17 gm 08/21/20 09:00 08/22/20 09:36 Polyethylene (Miralax) 17 Gm Pack PO 09/20/20 08:59 Not Given DAILY MARYLIN Propranolol HCl 80 mg 08/21/20 21:00 08/21/20 21:48 Propranolol Hcl La 80 Mg Capcr PO 09/20/20 20:59 Not Given HS MARYLIN Sertraline HCl 75 mg 08/21/20 09:00 08/22/20 09:18 Sertraline Hcl 50 Mg Tablet PO 09/20/20 08:59 75 mg QAM MARYLIN Administration Tamsulosin HCl 0.4 mg 08/21/20 21:00 08/21/20 21:49 Tamsulosin Hcl 0.4 Mg Cap PO 09/20/20 20:59 0.4 mg HS MARYLIN Administration NPO Date Last Intake of Fluids: 08/22/20 Time Last Intake of Fluids: 06:15 Last Intake of Fluids Comment: small sip with medications Date Last Intake of Solids: 08/21/20 Time Last Intake of Solids: 23:30 Past Medical History Medical History Abnormal mammogram Actinic keratosis Allergic conjunctivitis Cervical disc herniation (02/18/14) Cervical radiculopathy GOOD ROM PER PT Chronic low back pain Chronic neck pain Classic migraine with aura Disc degeneration, lumbar Dysuria Facial contusion HX Head trauma Inconclusive mammogram MDD (major depressive disorder) Migraine Mittelschmerz Neoplasm of uncertain behavior of skin Osteoarthritis Peripheral neuropathy Radicular pain of left lower extremity Urge and stress incontinence Urinary retention Vaginal atrophy Viral warts Past Family History Family History Father Cardiac disorder Malignant neoplasm of colon Prostate cancer Aunt Breast cancer Past Surgical History Surgical History History of breast biopsy History of cystoscopy History of esophagogastroduodenoscopy (EGD) History of robot-assisted laparoscopic hysterectomy Hx of lumpectomy LEFT (BENIGN) S/P cervical spinal fusion C4-C5 & C5-C6. TOTAL OF 3 FUSIONS ([facility]). LIMITED RANGE TO LEFT. HAS BEEN INTUBATED SINCE. Cervical Arthroplasty C4-C5 02/18/14: MAC #3, ETT #7.0, Grade 1 View, Smooth intubation on 1st attempt S/P hardware removal CERVICAL Social History Smoking Status: Never smoker Hx Alcohol Use: Yes Alcohol type: beer, wine and hard liquor alcohol intake frequency: holidays/special occasions only Hx Substance Use: No substance use type: does not use Physical Exam Vital Signs Last Vital Signs Temp 36.8 C 08/22/20 07:28 Pulse 83 08/22/20 07:28 Resp 16 08/22/20 07:28 BP 137/69 08/22/20 07:28 Pulse Ox 96 08/22/20 07:28 Testing Laboratory Results 08/22/20 06:01 08/22/20 06:01 Urine Color [place] 08/20/20 19:20 Urine Appearance Clear (Clear) 08/20/20 19:20 Urine pH 6.5 (4.5-7.5) 08/20/20 19:20 Ur Specific [place] 1.008 (1.000-1.030) 08/20/20 19:20 Urine Protein 2+ (Negative) H 08/20/20 19:20 Urine Glucose (UA) Negative (Negative) 08/20/20 19:20 Urine Ketones Negative (Negative) 08/20/20 19:20 Urine Nitrite Negative (Negative) 08/20/20 19:20 Ur Leukocyte Esterase 2+ (Negative) H 08/20/20 19:20 Urine WBC (Auto) 5-10 /hpf (0-5) H 08/20/20 19:20 Urine RBC (Auto) >30 /hpf (0-4) H 08/20/20 19:20 U Hyaline Cast (Auto) 0 /lpf (0-5) 08/20/20 19:20 U Epithel Cells (Auto) 5-10 /lpf (0-5) H 08/20/20 19:20 Urine Bacteria (Auto) Negative (Negative) 08/20/20 19:20 08/20/20 19:20 Urine Culture - Final Urine,Clean Catch Lactobacillus species
[2020-08-22] MEDS ORDERED: HYDROmorphone INJ 2 MG/ML SYR/VIAL IV PRN (12:01)
[2020-08-22] MEDS ORDERED: METOCLOPRAMIDE HCL INJ 5 MG/ML 2 ML VIAL IV PRN (12:01)
[2020-08-22] MEDS ORDERED: ATROPINE SULFATE 0.1 MG/ML 10ML SYR IV PRN (12:01)
[2020-08-22] MEDS ORDERED: ePHEDrine sulfate 50 MG/ML AMP IV PRN (12:01)
[2020-08-22] MEDS ORDERED: ONDANSETRON INJ 2 MG/ML 2 ML VIAL IV PRN (12:01)
[2020-08-22] MEDS ORDERED: PROMETHAZINE HCL 12.5 MG in SODIUM CHLORIDE 0.9% 50 ML IV PRN (12:01)
[2020-08-22] MEDS ORDERED: HYDROmorphone INJ 2 MG/ML SYR/VIAL ONE (12:06)
[2020-08-22] MEDS ORDERED: fentaNYL citrate 100 MCG/2 ML VIAL ONE (12:24)
[2020-08-22] MEDS ORDERED: MIDAZOLAM HCL 1 MG/ML 2ML VIAL ONE (12:51)
[2020-08-22] MEDS ORDERED: PROPOFOL IV EMULSION 10 MG/ML 20 ML VIAL IV ONE (13:14)
[2020-08-22] MEDS ORDERED: LIDOCAINE HCL 2% 2 ML VIAL/AMP(20MG/ML) INFIL ONE (13:14)
--- NOTE | 2020-08-22 13:44 | Operative Report ---
[facility] Post Operative Report Pre & Post Diagnosis Operation Date: 08/22/20 12:05 Pre-Op Diagnosis: Acute Right Flank Pain Post-Op Diagnosis: Acute Right Flank Pain I identified the patient and participated in the time-out.: Yes Procedure Operation Date: 08/22/20 12:05 Actual Procedures p Right Cystoscopy and Removal right Ureteral Stent(Right) - Chidi Pereira DO Surgeon Chidi Pereira, II, DO Contact Center Director None Estimated Blood Loss 0 Findings Consistent with Post-Op Diagnosis Stent removed without issue. Specimens None Drains None Anesthesia Type MAC Complications none Disposition Disposition: Recovery Room Indications Patient with obstruction with chronic stent changes. Risks and benefits discussed at length. Description of Procedure Patient was consented and brought back to the operating room. Patient was placed under anesthesia in the supine position and moved to the dorsal lithotomy position. Patient was prepped and draped in the regular sterile fashion. A time out was completed. A 30degree Cystoscope was placed into the bladder and the entire bladder was examined. The UO's were identified. The stent was grasped and removed. The bladder was assessed. Mild irritation at site of resection. The bladder was emptied. The scope was removed. The patient was cleaned, aroused from anesthesia, and transferred to the pacu in stable condition having tolerated the procedure well with no complications. I was present and participated in all aspects of the procedure. The patient will be monitored in the PACU until transferred. I attest to the content of the Intraoperative Record and any orders documented therein. Any exceptions are noted below.
[2020-08-22] MEDS: fentaNYL citrate 100 MCG/2 ML VIAL IV PRN ×2 (14:03→14:29)
--- NOTE | 2020-08-22 14:16 | Anesthesiology Progress Note ---
Date of Service August 22, 2020 Anesthesia Post Procedure Vital Signs Vital Signs: Temp Pulse Pulse Resp BP Pulse Ox 08/22/20 14:10 87 16 136/68 95 08/22/20 14:00 83 18 147/67 H 95 08/22/20 13:51 36.8 C 80 18 154/75 H 98 08/22/20 12:06 37.2 C 76 18 148/105 H 98 08/22/20 07:28 36.8 C 83 16 137/69 96 08/22/20 00:18 36.6 C 85 16 133/69 98 08/21/20 16:45 36.8 C 82 16 139/75 95 Pain Intensity Right Flank: Pain Intensity: 8 Abdomen: Pain Intensity: 7 Transfer of Care Handoff Completed per policy Notes Mental Status: alert / awake / arousable and participated in evaluation Patient Amnestic to Procedure: Yes Nausea / Vomiting: adequately controlled Pain: adequately controlled Airway Patency, RR, SpO2: stable & adequate BP & HR: stable & adequate Hydration State: stable & adequate Anesthetic Complications: no major complications apparent
[2020-08-22] MEDS ORDERED: KETOROLAC 30 MG/ML VIAL ONE (14:25)
[2020-08-22] MEDS ORDERED: KETOROLAC 30 MG/ML VIAL IV ONE (14:26)
[2020-08-22] MEDS ORDERED: HYDROmorphone INJ 1 MG/ML SYRINGE IV STA (14:34)
[2020-08-22] MEDS: HYDROmorphone INJ 2 MG/ML SYR/VIAL IV PRN ×2 (14:43→14:48)
--- NOTE | 2020-08-22 17:30 | Hospitalist Progress Note ---
Date of Service August 22, 2020 Assessment & Plan (1) Acute right flank pain: Admission and Anticipated Discharge Date Admission Date: August 20, 2020 Pt is a 50 y/o female with extensive urologic history, status post right ureteral stent placement a week ago, presenting with acute intractable right flank pain. She underwent stent removal procedure today 1) Acute right flank pain: Etiology uncertain. Initially thought to be due to poor tolerance of right ureteral stent placed a week ago. Patient underwent stent removal today. Reports minimal improvement of pain symptoms in the immediate post op period. Residual discomfort could be from ongoing ureteral spasm vs non-genitourinary source (i.e paraspinal muscle spasm) -monitor patient progress -continue pain control with current meds (see below) 2. Dysuria - possibly sec to UTI/oxalate crystals - UA with 2+ blood, 2+ LE w/o bacteria, no nitrite, +epithelial cells, WBC, RBC, calcium oxalate crystals - IV ceftriaxone 1g daily for presumed complicated UTI discontinued as most recent urine cultures were negative - WBC unremarkable, vitals WNL & stable, afebrile 3. Chronic Pain (ongoing) - hx cervical spinal fusion, chronic low back pain, acute spasmodic and pressured abdominal pain - home PO toradol replaced with IV toradol Q6H - continue pyridium, gabapentin, percocet 7.5/325 from home - flexeril QHS for muscle pain/tension - dilaudid 1 mg IV Q3H prn for severe pain - topical diclofenac gel prn Migraines - fioricet PRN, propranolol 80 mg HS Anxiety/Depression - cont klonopin 1 mg PO BID prn home dose - cont zoloft 75 QAM, welbutrin 150mg, buspar 20mg DVT ppx: SCDs, lovenox subQ FEN/GI: regular diet, zofran IV PRN Code Status: Full Code Dispo: Med/Surg (2) S/P ureteral stent placement: (3) Dysuria: (4) NEL (generalized anxiety disorder): (5) Urge and stress incontinence: (6) S/P cervical spinal fusion: (7) MDD (major depressive disorder): Supervising Physician Co-Signing Physician Notes I personally examined the patient and verified all delarosa points of history and exam, discussed case, and agree with decision making with Oj Adams, MS2 Ongoing pain postop. Also a bit groggy. Has a hard time recalling exactly what her pain was pretty surgery a week ago, does note she had left flank pain as well as right at the time. Has chronic back pain as well. She notes her bladder and lower belly are still quite distended "it looks like I am " Vitals noted, in general she is somewhat groggy, no distress. HEENT normocephalic atraumatic mucous membranes moist. Abdomen is soft may be mildly distended moderately tender without guarding, rebound, rigidity, no masses organomegaly. Right-sided mid to lower thoracic paraspinals high tone very tender, decreased range of motion. Far more tender at the paraspinals then CVA tenderness although she has tenderness there as well. Abdominal and back painseems to be a complex interplay of urologic pain as well as biomechanical/myofascial pain, likely with a significant amount of back and forth somatic visceral and viscerosomatic reflexes. We will follow for how she improves after today's procedure, although it may be beneficial to start to lay the foundation for a multimodal plan of management. Should she show good improvement simply with removal of the stent, then this may not be necessary. Continue to follow clinically, otherwise as above. Subjective Pt is a 50 y/o female presenting with acute intractable right flank pain + dysuria + urinary retention. Pt has extensive urologic history including transvaginal taping after hysterectomy, frequent UTIs, hydronephrosis. She is status post right ureteral stent placement a week ago. Today, pt seemed uncomfortable. She was sitting up in bed, resting with heating pad on abdomen. She still reports abdominal pain, radiating from lower abdomen and groin area to her lower back. Rates pain 8/10. Still having pain with bowel movement as well. She has occasional dysuria. She is utilizing prn analgesics, notes relief for short duration. She would like to proceed with stent removal today. Review of Systems Constitutional: as per Subjective / HPI; no fever and no chills Gastrointestinal: as per Subjective / HPI Genitourinary: as per Subjective / HPI, + dysuria, + urinary hesitancy and + flank pain Musculoskeletal: + back pain Physical Exam Constitutional: well developed, well nourished, + acute distress and cooperative; not ill appearing Eyes: PERRL, conjunctivae normal, anicteric sclerae no scleral abnormality Neck: trachea midline, no thyromegaly normal visual inspection Respiratory: normal respiratory effort, lungs clear to auscultation normal respiratory effort; no respiratory distress and no labored breathing Auscultation: lungs clear to auscultation bilaterally Cardiovascular: RRR, no murmur, no edema Rate/Rhythm: regular rate and regular rhythm Heart Sounds: normal S1 and normal S2 Extremities: no pedal edema Gastrointestinal (Abdomen): Inspection/Auscultation: abdomen normal to inspe ction and + abdomen distended Percussion/Palpation: + abdomen tender (pelvic without rebound) Musculoskeletal: Head/Neck/Chest: normocephalic and head atraumatic Spine: + lumbar spinal tenderness Skin: no rashes, warm and dry Neurologic: moves all extremities and awake Psychiatric: Orientation: alert and oriented x 3 Results & Data Results & Data ([facility]) Vital Signs (Past 12 Hours) Vital Signs Temp Pulse Pulse Pulse Resp BP Pulse Ox 08/22/20 16:20 36.8 C 81 18 152/81 H 98 08/22/20 15:50 36.9 C 78 18 126/70 97 08/22/20 15:20 36.4 C L 88 18 148/57 H 97 08/22/20 15:10 87 16 134/62 97 08/22/20 15:00 97 H 16 130/75 97 08/22/20 14:50 36.1 C L 87 18 136/67 95 08/22/20 14:40 85 18 133/67 95 08/22/20 14:30 85 18 135/69 98 08/22/20 14:20 36.1 C L 77 18 127/95 98 08/22/20 14:10 87 16 136/68 95 08/22/20 14:00 83 18 147/67 H 95 08/22/20 13:51 36.8 C 80 18 154/75 H 98 08/22/20 12:06 37.2 C 76 18 148/105 H 98 08/22/20 07:28 36.8 C 83 16 137/69 96
[2020-08-22] MEDS ORDERED: MELATONIN 3 MG TAB PO PRN (17:36)
[2020-08-22] MEDS: DICLOFENAC SOD 1% GEL 100 GM TUBE EXT SCH ×2 (18:06→21:34)
--- NOTE | 2020-08-22 18:24 | Billing Data ---
Date of Service August 22, 2020 Coding Level of Care Code 31361 Subseq Hosp Care Lvl 3
[2020-08-22] MEDS: ENOXAPARIN INJ 40 MG/0.4 ML SYR SQ SCH (18:56)
[2020-08-22] MEDS ORDERED: CYCLOBENZAPRINE HCL 10 MG TAB PO ONE (21:00)
[2020-08-22] MEDS: TAMSULOSIN HCL 0.4 MG CAP PO SCH (21:31)
[2020-08-22] MEDS: PROPRANOLOL HCL LA 80 MG CAPCR PO SCH (21:33)
[2020-08-23] MEDS: oxyCODONE/APAP 7.5/325MG TAB PO PRN ×3 (01:58→23:21)
[2020-08-23] MEDS: cefTRIAXone SODIUM 1,000 MG in DEXTROSE 5% 50 ML IV SCH (01:58)
[2020-08-23] MEDS: HYDROmorphone INJ 1 MG/ML SYRINGE IV PRN ×8 (01:58→23:20)
[2020-08-23] MEDS: SODIUM CHLORIDE 0.9% 1000ML 1,000 ML IV SCH (04:12)
[2020-08-23] MEDS: KETOROLAC TROMETHAMINE 15 MG/ML VIAL IV PRN ×2 (05:38→11:35)
[2020-08-23 07:05] LABS: Basophils # (auto) 0.09 K/uL (0-0.2); Basophils % (auto) 1.9 %; Eosinophils # (auto) 0.55 K/uL (0-0.5); Eosinophils % (auto) 11.5 %; Hematocrit (blood only) 36.2 % (37-47); Hemoglobin 11.8 g/dL (12.0-16.0); Lymphocytes # (auto) 2.22 K/uL (1.2-3.4); Lymphocytes % (auto) 46.4 %; Mean Corpuscular Hemoglobin 32.5 pg (25-34); Mean Corpuscular Hgb Conc 32.6 g/dL (32-36); Mean Corpuscular Volume 99.7 fL (80-100); Mean Platelet Volume 9.2 fL (7.4-10.4); Monocytes # (auto) 0.38 K/uL (0.11-0.59); Monocytes % (auto) 7.9 %; Neutrophils # (auto) 1.54 K/uL (1.4-6.5); Neutrophils % (auto) 32.3 %; Platelet Count 344 K/uL (130-400); RDW Coefficient of Variation 12.4 % (11.5-14.5); RDW Standard Deviation 45.9 fL (36.4-46.3); Red Blood Count 3.63 M/uL (4.2-5.4); White Blood Count 4.78 K/uL (4.8-10.8)
[2020-08-23] MEDS: SERTRALINE HCL 50 MG TABLET PO SCH (07:59)
[2020-08-23] MEDS: buPROPion XL 150 MG TABCR PO SCH (08:00)
[2020-08-23] MEDS: CYANOCOBALAMIN (VITAMIN B-12) 2,500 MCG TAB.SUBL SL SCH (08:01)
[2020-08-23] MEDS: MULTIVITAMIN TAB PO SCH (08:01)
[2020-08-23] MEDS: OXYBUTYNIN CHLORIDE 5 MG TAB PO SCH ×2 (08:02→21:39)
[2020-08-23] MEDS: GABAPENTIN 400 MG CAP PO SCH ×2 (08:02→21:38)
[2020-08-23] MEDS: busPIRone 5 MG TAB PO SCH ×2 (08:04→21:38)
[2020-08-23] MEDS: PHENAZOPYRIDINE HCL 200 MG TAB PO PRN ×2 (08:04→16:27)
[2020-08-23] MEDS: DICLOFENAC SOD 1% GEL 100 GM TUBE EXT SCH ×4 (08:05→23:21)
[2020-08-23] MEDS: POLYETHYLENE (MIRALAX) 17 GM PACK PO SCH (08:05)
[2020-08-23] MEDS: clonazePAM 1 MG TAB PO PRN (08:14)
--- NOTE | 2020-08-23 09:28 | Urology Progress Note ---
Date of Service August 23, 2020 Assessment & Plan (1) Acute right flank pain: 50 yo F POD#1 cystoscopy and removal of right ureteral stent. - Pt with ongoing right sided discomfort s/p right ureteral stent removal - Possible ureteral spasm after stent removal vs other etiology such as MSK - Continue pain management and supportive care - Recommend monitor bladder scan prn - If ongoing difficulty emptying bladder, consider d/c oxybutynin - Expected clinical course reviewed, all questions answered - Okay to d/c from perspective when medically stable, recommend home with prn pain management - Keep current outpatient follow-up with our service Thank you for allowing us to participate in the acute care of Ms. Gordon. Please reconsult us with additional questions, concerns or changes in patient status. Admission and Anticipated Discharge Date Admission Date: August 20, 2020 Subjective 50 yo F POD#1 cystoscopy and removal of right ureteral stent. Patient awake and sitting up at the side of the bed eating breakfast with heating pad across abdomen. Continues to have the same pain on the right flank to abdomen/groin since stent removal, minimal improvement. She is utilizing Ketorolac, Hydromorphone, Percocet, Tamsulosin, Pyridium, and oxybutynin. She also is taking her home gabapentin and Flexeril. She reports some ongoing difficulty emptying bladder. She was unable to void this AM x 2 attempts. Bladder scanned for 657 mL, then she was able to void 600 mL. Tolerating PO diet, notes low appetite, but no nausea or vomiting. BM yesterday. No fever or chills. No additional concerns today. Chart review: Afebrile, creatinine 0.65, WBC 4.78, Hgb 11.8. On IV Ceftriaxone. Review of Systems Constitutional: as per Subjective / HPI Gastrointestinal: as per Subjective / HPI Genitourinary: as per Subjective / HPI Physical Exam Constitutional: well developed and well nourished; no acute distress and not ill appearing Eyes: no scleral abnormality Respiratory: normal respiratory effort and able to speak in complete sentences; no respiratory distress and no labored breathing Cardiovascular: Extremities: no pedal edema Gastrointestinal (Abdomen): Inspection/Auscultation: abdomen normal to inspection; abdomen not distended Musculoskeletal: Head/Neck/Chest: normocephalic and head atraumatic Skin: no rashes, warm and dry Neurologic: moves all extremities and awake Psychiatric: Orientation: alert and oriented x 3 Genitourinary: + CVA tenderness (mild tenderness on the right) Results & Data ([facility]) Vital Signs (Past 12 Hours) Vital Signs Temp Pulse Pulse Resp BP Pulse Ox 08/23/20 07:50 36.4 C L 66 16 138/75 97 08/23/20 03:49 36.7 C 66 17 129/78 97 08/22/20 22:35 36.9 C 79 16 143/79 H 95 PG Care Time/CCT Total # of Minutes Spent Total Time Spent with Patient: Total time spent is greater than 50% in coordination of care (as documented) at patient's floor/unit and/or counseling patient: Coding Level of Care Code 19338 Subseq Hosp Care Lvl 2 Diagnoses Acute right flank pain R10.9
[2020-08-23] MEDS ORDERED: DOCUSATE SODIUM 100 MG CAP PO ONE (10:37)
[2020-08-23] MEDS ORDERED: POLYETHYLENE (MIRALAX) 17 GM PACK PO STA (10:46)
--- NOTE | 2020-08-23 11:10 | Hospitalist Progress Note ---
Date of Service August 23, 2020 Assessment & Plan (1) Acute right flank pain: Pt is a 50 y/o female with extensive urologic history, presenting with acute intractable right flank pain. One day post right ureteral stent removal 1) Acute right flank pain: Etiology uncertain. Initially thought to be due to poor tolerance of right ureteral stent placed a week ago. Patient is one day post stent removal. Reports minimal improvement. Residual discomfort could be from ongoing ureteral spasm vs non-genitourinary source (i.e paraspinal muscle spasm). Other considerations given patient symptoms include T1 nerve root impingement, interstitial cystitis, myofascial tightness -T spine MRI results pending -continue to monitor for improvement of symptoms -continue pain control with current meds (see below) 2. Dysuria - possibly sec to UTI/oxalate crystals - UA with 2+ blood, 2+ LE w/o bacteria, no nitrite, +epithelial cells, WBC, RBC, calcium oxalate crystals - IV ceftriaxone 1g daily initially started for presumed complicated UTI, discontinued as most recent urine cultures were negative making UTI highly unlikely - WBC unremarkable, vitals WNL & stable, afebrile 3. Chronic Pain (ongoing) - hx cervical spinal fusion, chronic low back pain, acute spasmodic and pressured abdominal pain - home PO toradol replaced with IV toradol Q6H - continue pyridium, gabapentin, percocet 7.5/325 from home - flexeril QHS for muscle pain/tension - dilaudid 1 mg IV Q3H prn for severe pain - topical diclofenac gel prn Migraines - fioricet PRN, propranolol 80 mg HS Anxiety/Depression - cont klonopin 1 mg PO BID prn home dose - cont zoloft 75 QAM, welbutrin 150mg, buspar 20mg DVT ppx: SCDs, lovenox subQ FEN/GI: regular diet, zofran IV PRN Code Status: Full Code Dispo: Med/Surg (2) S/P ureteral stent placement: (3) Dysuria: (4) NEL (generalized anxiety disorder): (5) Urge and stress incontinence: (6) S/P cervical spinal fusion: (7) MDD (major depressive disorder): Admission and Anticipated Discharge Date Admission Date: August 20, 2020 Supervising Physician Co-Signing Physician Notes I personally examined the patient and verified all delarosa points of history and exam, discussed case, and agree with decision making with Oj Adams, MS2 Still feels fairly bad overall, right flank pain, lower abdominal pain, on and off urinary symptoms. Vitals noted, in general she is somewhat uncomfortable appearing, although awake and pleasant. HEENT normocephalic atraumatic mucous membranes moist. Breathing unlabored no accessory muscle use good effort. Skin shows no rashes no pallor or icterus. Neuro shows no focal deficits Abdominal and back painseems to be a complex interplay of urologic pain as well as biomechanical/myofascial pain, likely with a significant amount of back and forth somatic visceral and viscerosomatic reflexes, and possibly also interstitial cystitis. obtain MRI Tspine to assess ?thoracic radiculopathy vs all myofascial/biomechanical as far as that component. ongoing urology input regarding urinary tract/hydronephrosis pain. consider treatment for interstitial cystitis. home once pain better controlled and overall treatment plan started to be outlined more. Continue to follow clinically, otherwise as above. Subjective Pt is a 50 y/o female with extensive urologic history including, transvaginal taping after hysterectomy, frequent UTIs, hydronephrosis. She is on hospital day 3 after presenting to the ED with acute intractable right flank pain + dysuria + urinary retention. Pt is 1 day post right ureteral stent removal. Today, she reports minimal improvement of symptoms. She reports pain in groin area radiating to her back. Rates pain 7/10. Still reporting occasional retention. She was unable to void this AM x 2 attempts. Bladder scanned for 657 mL, then she was able to void 600 mL. Abdomen still feels distended. Pain meds provide relief for short duration. She is utilizing Ketorolac, Hydromorphone, Percocet, Tamsulosin, Pyridium, and oxybutynin. She also is taking her home gabapentin and Flexeril. Tolerating PO diet, no nausea or vomiting. No fever or chills. Review of Systems Constitutional: as per Subjective / HPI; no fever and no chills Respiratory: no dyspnea Cardiovascular: no chest pain Gastrointestinal: as per Subjective / HPI Genitourinary: as per Subjective / HPI, + dysuria, + urinary hesitancy and + flank pain Musculoskeletal: + back pain Physical Exam Constitutional: well developed, well nourished and cooperative; no acute distress and not ill appearing Eyes: no scleral abnormality Neck: trachea midline, no thyromegaly normal visual inspection Respiratory: normal respiratory effort, lungs clear to auscultation normal respiratory effort; no respiratory distress and no labored breathing Auscultation: lungs clear to auscultation bilaterally Cardiovascular: RRR, no murmur, no edema Rate/Rhythm: regular rate and regular rhythm Heart Sounds: normal S1 and normal S2 Extremities: no pedal edema Gastrointestinal (Abdomen): Inspection/Auscultation: abdomen normal to inspection and + abdomen distended Percussion/Palpation: + abdomen tender (pelvic without rebound) Musculoskeletal: Head/Neck/Chest: normocephalic and head atraumatic Spine: + lumbar spinal tenderness Skin: no rashes, warm and dry Neurologic: moves all extremities and awake Psychiatric: Orientation: alert and oriented x 3 Results & Data Results & Data ([facility]) Vital Signs (Past 12 Hours) Vital Signs Temp Pulse Resp BP Pulse Ox 08/23/20 07:50 36.4 C L 66 16 138/75 97 08/23/20 03:49 36.7 C 66 17 129/78 97
[2020-08-23] MEDS: LIDOCAINE 5% 1 PATCH TD SCH (11:36)
[2020-08-23] MEDS: SENNA 8.6 MG TAB PO SCH (11:36)
[2020-08-23] MEDS ORDERED: LORazepam 1 MG/2 ML VIAL IV PRN (13:24)
--- NOTE | 2020-08-23 18:48 | Billing Data ---
Date of Service August 23, 2020 Coding Level of Care Code 06150 Subseq Hosp Care Lvl 3
[2020-08-23] MEDS ORDERED: GADOBUTROL 65ML VIAL IV ONE (21:16)
[2020-08-23] MEDS: TAMSULOSIN HCL 0.4 MG CAP PO SCH (21:38)
[2020-08-23] MEDS: ENOXAPARIN INJ 40 MG/0.4 ML SYR SQ SCH (21:39)
[2020-08-23] MEDS: PROPRANOLOL HCL LA 80 MG CAPCR PO SCH (21:41)
[2020-08-24] MEDS: KETOROLAC TROMETHAMINE 15 MG/ML VIAL IV PRN ×3 (08:03→22:52)
[2020-08-24] MEDS: oxyCODONE/APAP 7.5/325MG TAB PO PRN ×2 (08:04→16:56)
[2020-08-24] MEDS: clonazePAM 1 MG TAB PO PRN (08:04)
[2020-08-24] MEDS: HYDROmorphone INJ 1 MG/ML SYRINGE IV PRN ×8 (08:04→23:22)
[2020-08-24] MEDS: buPROPion XL 150 MG TABCR PO SCH (08:10)
[2020-08-24] MEDS: SERTRALINE HCL 50 MG TABLET PO SCH (08:10)
[2020-08-24] MEDS: busPIRone 5 MG TAB PO SCH ×2 (08:11→21:00)
[2020-08-24] MEDS: CYANOCOBALAMIN (VITAMIN B-12) 2,500 MCG TAB.SUBL SL SCH (08:11)
[2020-08-24] MEDS: MULTIVITAMIN TAB PO SCH (08:11)
[2020-08-24] MEDS: OXYBUTYNIN CHLORIDE 5 MG TAB PO SCH ×2 (08:11→21:02)
[2020-08-24] MEDS: GABAPENTIN 400 MG CAP PO SCH ×2 (08:12→21:01)
[2020-08-24] MEDS: SENNA 8.6 MG TAB PO SCH (08:12)
[2020-08-24] MEDS: DICLOFENAC SOD 1% GEL 100 GM TUBE EXT SCH ×4 (08:12→21:01)
[2020-08-24] MEDS: POLYETHYLENE (MIRALAX) 17 GM PACK PO SCH (08:13)
[2020-08-24] MEDS: LIDOCAINE 5% 1 PATCH TD SCH (08:13)
--- NOTE | 2020-08-24 09:18 | Magnetic Resonance Report ---
MR thoracic spine wo/w con CLINICAL HISTORY: Right-sided pain. Suspected nerve root impingement. COMPARISON STUDY: No previous studies for comparison. FINDINGS: Images were acquired in the sagittal and axial planes, before and after the administration of 6.5 cc of intravenous Gadavist. There are no suspicious areas of marrow replacement. No intrinsic cord lesions are visualized. No disc herniations are visualized. There is a minimal T3-4 disc bulge asymmetric to the right. There is no spinal stenosis. There is a small right-sided perineural cyst at T10-11 level. No paraspinal lesions are visualized. Postcontrast images reveal no pathologically enhancing lesions. IMPRESSION: 1. No significant abnormalities identified 2. No thoracic cord lesions identified 2. No disc herniations 4. No evidence of spinal stenosis ACT 112: Negative or not required by law. Electronically signed by: Latrell Romero M.D. 08/24/2020 9:16 AM
[2020-08-24] MEDS ORDERED: POLYETHYLENE (MIRALAX) 17 GM PACK PO STA ×2 (10:31→17:42)
--- NOTE | 2020-08-24 17:42 | Hospitalist Progress Note ---
Date of Service August 24, 2020 Assessment & Plan (1) Acute right flank pain: Acute right flank pain: Pt is a 50 y/o female with extensive urologic history, presenting with acute intractable right flank pain. She will remain in the hospital, as she is requiring IV narcotics for pain control . Acute right flank pain: Etiology uncertain. Initially thought to be due to poor tolerance of right ureteral stent placed a week ago. Patient is POD 2 of stent removal, with only minimal improvement. Suspect pain is multifactorial, ie from ongoing ureteral spasm vs non-genitourinary source (i.e paraspinal muscle spasm), interstitial cystitis, myofascial tightness -T spine MRI: showing no nerve root impingement - lengthy discussion held with patient today regarding multi-modal source of her discomfort - will therefore need a multi-pronged treatment plan to address all facets. Recommend she try to address constipation with aggressive bowel regimen. She should continue to work with chiropractor/massage therapist to work on paraspinal muscle/fascia tightness. Continue to follow with pain management for lumbar spine injections. Continue to follow with urology for possible interstitial cystitis/bladder desensitization techniques. -continue to monitor for improvement of symptoms -continue pain control with current meds (see below) Dysuria - possibly sec to UTI/oxalate crystals - UA with 2+ blood, 2+ LE w/o bacteria, no nitrite, +epithelial cells, WBC, RBC, calcium oxalate crystals - urine culture negative - Ceftriaxone d/c Chronic Pain (ongoing) - follows with [facility] [place] pain management - hx cervical spinal fusion, chronic low back pain, acute spasmodic and pressured abdominal pain - home PO toradol replaced with IV toradol Q6H - continue pyridium, gabapentin, percocet 7.5/325 from home - flexeril QHS for muscle pain/tension - dilaudid 1 mg IV Q3H prn for severe pain - topical diclofenac gel prn - Kpad ordered Migraines - fioricet PRN, propranolol 80 mg HS Anxiety/Depression - cont klonopin 1 mg PO BID prn home dose. Likely has acquired tolerance to home benzo dose. Recommend she work with PCP to taper off - cont zoloft 75 QAM, welbutrin 150mg, buspar 20mg. Discussed possible switch to Cymbalta for antidepressant and neuropathic pain relief, however patient reporte d intolerance to Cymbalta in the past. DVT ppx: SCDs, lovenox subQ FEN/GI: regular diet, zofran IV PRN Code Status: Full Code Dispo: Med/Surg Admission and Anticipated Discharge Date Admission Date: August 20, 2020 Supervising Physician Co-Signing Physician Notes I personally examined the patient and verified all delarosa points of history and exam, discussed case, and agree with decision making with Dr Harmon. Feeling about the same overall, understanding the overall idea of the plan. Has had 700 mL in her bladder last night with no symptoms, now about 450 but she cannot void and is extremely symptomatic. Vitals noted, in general she is somewhat uncomfortable appearing, although awake and pleasant. HEENT normocephalic atraumatic mucous membranes moist. Breathing unlabored no accessory muscle use good effort. Skin shows no rashes no pallor or icterus. Neuro shows no focal deficits Abdominal and back painseems to be a complex interplay of urologic pain as well as biomechanical/myofascial pain, likely with a significant amount of back and forth somatic visceral and viscerosomatic reflexes, and possibly also interstitial cystitis. Fortunately MRI did not show anything to really cause any nerve root impingement/radiculopathy, so the biomechanical portion of this is likely all myofascialrather than nerve root radiculartreatment for this will be outpatient chiropractic and massage. consider treatment for interstitial cystitis, discussed that while quite awkward, pelvic floor release techniques might be helpful for this. Discussed management for constipation predominant IBS to help with overall abdominal pain, as well as bladder symptomsbowel regimen, and home with MiraLAX. On and off urinary retention to be followed. Home once pain better controlled and overall treatment plan started to be outlined more. Continue to follow clinically, otherwise as above. Subjective No acute events overnight. Patient reports minimal to no improvement in pain since yesterday. She intermittent has trouble voiding her bladder - yesterday she was scanned and volume was noted to be > 700 (but did not have increased pain). Today, she reports significant pain with a bladder scan revealing a volume fo 450ml. Review of Systems Gastrointestinal: + abdominal pain and + constipation Physical Exam Constitutional: WD/WN, vitals as above cooperative; no acute distress Eyes: + anicteric sclerae ENMT: external ear and nose normal, oropharynx normal Neck: normal visual inspection and trachea midline Respiratory: normal respiratory effort, lungs clear to auscultation Cardiovascular: RRR, no murmur, no edema Heart Sounds: normal S1 and normal S2 Extremities: no pedal edema Gastrointestinal (Abdomen): Inspection/Auscultation: + abdomen distended and normal bowel sounds Percussion/Palpation: + abdomen tender and abdomen soft Skin: no rashes, warm and dry Psychiatric: A+Ox3, euthymic affect Results & Data Results & Data ([facility]) Vital Signs (Past 12 Hours) Vital Signs Temp Pulse Pulse Resp BP BP Pulse Ox 08/24/20 16:00 37 C 80 20 145/70 H 94 08/24/20 07:44 36.8 C 97 H 18 153/89 H 95 Resident Activity Tracking Resident Involvement: Resident Care Provided Care Provided: Adult Hospital Medicine
--- NOTE | 2020-08-24 20:11 | Billing Data ---
Date of Service August 24, 2020 Coding Level of Care Code 56480 Subseq Hosp Care Lvl 3
[2020-08-24] MEDS: PROPRANOLOL HCL LA 80 MG CAPCR PO SCH (20:59)
[2020-08-24] MEDS: ENOXAPARIN INJ 40 MG/0.4 ML SYR SQ SCH (21:01)
[2020-08-24] MEDS: TAMSULOSIN HCL 0.4 MG CAP PO SCH (21:02)
[2020-08-25] MEDS: PHENAZOPYRIDINE HCL 200 MG TAB PO PRN (01:20)
[2020-08-25] MEDS: oxyCODONE/APAP 7.5/325MG TAB PO PRN ×2 (01:23→10:21)
[2020-08-25] MEDS: HYDROmorphone INJ 1 MG/ML SYRINGE IV PRN ×7 (01:24→17:37)
[2020-08-25] MEDS: clonazePAM 1 MG TAB PO PRN (04:10)
[2020-08-25 07:43] LABS: Creatinine Clr Calc Pharmacy 104.7 ml/min; Est GFR (African American) 119.4 ml/min
[2020-08-25] MEDS: busPIRone 5 MG TAB PO SCH (08:22)
[2020-08-25] MEDS: buPROPion XL 150 MG TABCR PO SCH (08:22)
[2020-08-25] MEDS: SERTRALINE HCL 50 MG TABLET PO SCH (08:22)
[2020-08-25] MEDS: CYANOCOBALAMIN (VITAMIN B-12) 2,500 MCG TAB.SUBL SL SCH (08:23)
[2020-08-25] MEDS: OXYBUTYNIN CHLORIDE 5 MG TAB PO SCH (08:23)
[2020-08-25] MEDS: MULTIVITAMIN TAB PO SCH (08:23)
[2020-08-25] MEDS: DICLOFENAC SOD 1% GEL 100 GM TUBE EXT SCH ×2 (08:23→14:19)
[2020-08-25] MEDS: SENNA 8.6 MG TAB PO SCH (08:23)
[2020-08-25] MEDS: LIDOCAINE 5% 1 PATCH TD SCH (08:24)
[2020-08-25] MEDS: GABAPENTIN 400 MG CAP PO SCH (08:28)
[2020-08-25] MEDS: KETOROLAC TROMETHAMINE 15 MG/ML VIAL IV PRN ×2 (08:34→15:18)
[2020-08-25] MEDS ORDERED: DOCUSATE SODIUM 100 MG CAP PO SCH (09:00)
[2020-08-25] MEDS ORDERED: POLYETHYLENE (MIRALAX) 17 GM PACK PO SCH (09:00)
[2020-08-25] MEDS ORDERED: POLYETHYLENE (MIRALAX) 17 GM PACK PO STA (13:16)
--- NOTE | 2020-08-25 14:22 | Discharge Summary ---
Date of Service August 25, 2020 Admission HPI Per Admitting Provider 50 yo F hx urinary distension, R hydronephrosis, cervicalgia, NEL, MDD, recent placement of UVJ R sided stent presenting to ER for worsening abdominal pressure and pain. Had a cystoscopy with hydrodistension and TURBT, biopsy and fulguration of lesions, and stent placement on 08/[address] Pereira. Findings included hypervascularity with multiple lesions, tortuous R ureter, thickening of base of bladder. Pt says her pain and abdominal fullness has not improved since the procedure. Describes sensation of abdominal/suprapubic fullness, sharp pain going from urethra to right CVA, and pressure along the inferior portion of abdomen. States she has burning with urination, baseline pain that is increased when defecating even if not constipated. She states the pain "feels like labor pains, but 10x worse". Has tried tylenol, toradol PO, pyrimidine, gabapentin for management of pain at home without relief. Admission Exam Per Admitting Provider Constitutional: thin, uncomfortable appearing middle aged female in position on bed Eyes: EOMI, pupils equal and reactive bilaterally, no scleral icterus Cardiac: RRR, no murmurs, gallops or rubs. Normal S1, S2 Pulm: CTA BL, no wheezes, rhonchi, crackles or rubs, moving air well throughout both lungs Abd: TTP in suprapubic, RLQ, RUQ. No epigastric or left sided tenderness back: extremly TTP of right CVA. left nontender. Extremities: 2+ peripheral pulses, no edema Neuro: no focal deficits, moving all 4 limbs, A&Ox3 Principal Diagnosis Flank pain Discharge Exam Constitutional WD/WN, vitals as above cooperative; no acute distress Eyes + anicteric sclerae ENMT external ear and nose normal, oropharynx normal Neck normal visual inspection and trachea midline Respiratory normal respiratory effort, lungs clear to auscultation Cardiovascular RRR, no murmur, no edema Heart Sounds: normal S1 and normal S2 Extremities: no pedal edema Gastrointestinal (Abdomen) Inspection/Auscultation: + abdomen distended and normal bowel sounds Percussion/Palpation: + abdomen tender and abdomen soft Skin no rashes, warm and dry Psychiatric A+Ox3, euthymic affect Discharge Data Allergies Allergy/AdvReac Type Severity Reaction Status Date / Time rizatriptan Allergy Severe Difficulty Verified 08/20/20 19:31 Breathing benzoin Allergy Unknown USED TO Verified 08/20/20 19:31 PUT UNDER STERI STRIPS TO KEEP THEM ON -- BLISTERS tramadol AdvReac Mild N/V Verified 08/20/20 19:31 Consultations 08/20/20 22:03 ED Decision to Admit Stat 08/21/20 00:16 Consult Urology Routine Procedures Performed Operation Date: 08/22/20 12:05 Actual Procedures p Right Cystoscopy Removal Ureteral Stent(Right) - Chidi Pereira, Ordered Studies 08/20/20 19:08 CT abd pelvis wo con Stat 08/23/20 10:19 MR thoracic spine wo/w con Routine Hospital Course (1) Acute right flank pain: Acute right flank pain: Pt is a 50 y/o female with extensive urologic history, presenting with acute intractable right flank pain. Acute right flank pain: Etiology uncertain. Initially thought to be due to poor tolerance of right ureteral stent placed one week prior to admission. Urology removed the R ureteral stent during this hospital stay, which brought patient only minimal improvement. Suspect pain is multifactorial, ie from ongoing ureteral spasm vs non-genitourinary source (i.e paraspinal muscle spasm), interstitial cystitis, myofascial tightness. A T spine MRI was ordered, but showed no nerve root impingement or disc herniation. A lengthy discussion was held with patient regarding multi-modal source of her discomfort and how she will therefore need a multi-pronged treatment plan to address all facets. Recommend she try to address constipation with aggressive bowel regimen (daily Miralax, titrate to one soft BM per day). She should continue to work with chiropractor/massage therapist to work on paraspinal muscle/fascia tightness. Continue to follow with pain management for lumbar spine injections. Continue to follow with urology for possible interstitial cystitis/bladder desensitization techniques. Patient is on Percocet, QID as a home medication - she requested a script for a less-potent narcotic to use on an as needed basis. A short course of Flexeril was also provided. Urinary Retention Patient experienced intermittent inability to void during her hospital stay - she required straight catheterization several times. One possible cause of this is constipation (moderate to severe stool burden noted on A/P CT scan). Recommend bowel regimen as above. Patient was also on Oxybutinin - discussed while this medication may relieve bladder spasms, it may also be contributing to her urinary retention. Advised her to use prn only. Dysuria - UA with 2+ blood, 2+ LE w/o bacteria, no nitrite, +epithelial cells, WBC, RBC, calcium oxalate crystals - urine culture negative Chronic Pain (ongoing) - follows with Dr. Benjamin at [facility] pain management - hx cervical spinal fusion, chronic low back pain, acute spasmodic and pressured abdominal pain - continue home Toradol, Pyridium, gabapentin. Start Flexeril 5mg, qhs. Patient does have a script for percocet 7.5/325 (specifically for her neck pain) - she did request a script of a less potent narcotic for prn use Migraines - fioricet PRN, propranolol 80 mg HS for prophylaxis Anxiety/Depression - cont klonopin 1 mg PO BID prn home dose. Likely has acquired tolerance to home benzo dose. Recommend she work with PCP to taper off - cont zoloft 75 QAM, welbutrin 150mg, buspar 20mg. Discussed possible switch to Cymbalta for antidepressant and neuropathic pain relief, however patient reported intolerance to Cymbalta in the past. Total Time Total Time Spent Total Time Spent (In Minutes): >30 Discharge Plan Discharge Items Patient Disposition: Home - Self-Care Reason For Visit: ABDOMINAL PAIN Discharge Diagnosis: Flank pain Condition on Discharge: Good Activity: Resume your previous activity Non-emergency contact: Primary Care Provider and Urologist Call non-emergency contact if: your symptoms worsen Follow-up/Referrals: Leora Byrne CRNP [Primary Care Provider] - 08/30/20 2:30 pm Diet: Regular Addtl Attending Provider Instructions: You were hospitalized at [facility] for right flank pain. In the days preceding admission, you had a stent placed in your R ureter by Dr. Pereira. Initially, we thought your pain was from the stent. Dr. Pereira removed the stent, after which your pain improved only minimally. A cat scan of your abdomen was performed and showed significant constipation - we treated you with a bowel regimen while in the hospital. We recommend you increase your dietary fiber intake (goal would be 25mg/per day) and use Miralax (available over the counter) on a daily basis. You can start with 2 capfulls of miralax per day, and increase it until you are having at least one soft bowel movement per day. It would not be surprising if you need multiple doses of Miralax per day to achieve regular, soft bowel movements. We do recommend you have a routine, screening colonoscopy now that you have reached age 50. We also performed an MRI of your thoracic spine - by and large, this study was normal. It did show disc asymmetric at the T3-T4 level, however no herniation. It also showed a small cyst on one of your spinal nerves at T10-11 - although this is unlikley to be a cause of your discomfort. We started you on antibiotics when you came in due to concerns for a urinary tract infection, however, your urine culture was negative. There is no need to continue antibiotics further. The exact cause of your acute worsening in your chronic pain is uncertain. We feel as though it is multifactorial - ie caused by a combination of sources. Our recommendations would be as follows: 1. address the underlying constipation (see above) 2. we suspect you may have a condition known as interstitial cystitis (irritable of the bladder). We would encourage you to continue to work with your urologist (Dr. Pereira) to explore this diagnosis and consider options for bladder desensitization. 3. Some of your pain is likely caused by soft tissue (ie muscle and its outer covering called fascia). Continue to work with your chiropractor, massage therapist, or a Doctor of Osteopathic medicine for hands-on therapy. 4. Please work with Dr. Benjamin, your pain management provider, for continued lumbar spine injections. We made the following medication changes while you were in the hospital: 1. We advised you to use the oxybutynin on an as needed basis only for bladder spams (rather than daily). This may be contributing to your issues with urinary retention 2. We advised you to begin using the Flexeril 5mg, nightly. This is a muscle relaxant. It can make you drowsy - so we would strongly recommend you taking it at night. 3. You requested a script for a narcotic less potent than Percocet - a script was provided for you. We would recommend you follow up with a family medicine provider (Michelle Byrne) or a physician in her clinic to work on tapering off your clonazepam. Several options of physicians who work in the same clinic include: Nadege Harmon MD, Jacobo Santamaria MD, Baudilio Jain MD, Lori Dunne DO, or Jose Luis Amaya MD. Pending Studies at Discharge: No Stand-Alone Forms: My [facility] emoquo, Smoking Cessation Medications and DC Order Prescriptions: New phenazopyridine [Pyridium] 200 mg Tablet 200 mg PO Q8H PRN (Reason: bladder spasms) 30 Days Qty: 30 RF: 0 cyclobenzaprine 5 mg Tablet 5 mg PO HS PRN (Reason: muscle spasm) 7 Days Qty: 7 RF: 0 hydrocodone-acetaminophen 5-325 mg tablet 1 tab PO Q8H PRN (Reason: pain) Qty: 20 RF: 0 Continued oyfpigzamv-gaqhfqqgvlyyv-xhad 50-325-40 mg tablet 1 - 2 tab PO Q6 PRN (Reason: Headache) 30 Days Qty: 9 RF: 1 oxybutynin chloride 5 mg tablet 5 mg PO BID PRN (Reason: bladder spasms) Qty: 20 RF: 1 oxycodone-acetaminophen [Percocet] 7.5-325 mg tablet 1 tab PO Q8H PRN (Reason: pain) Qty: 7 RF: 0 ketorolac 10 mg tablet 10 mg PO BID PRN (Reason: pain) 5 Days Qty: 10 RF: 0 clonazepam 1 mg tablet 1 mg PO BID PRN (Reason: Anxiety) RF: 0 multivitamin Tablet 2 tab PO QAM RF: 0 cyanocobalamin (vitamin B-12) [Vitamin B-12] 2,500 mcg Tablet, Sublingual 5,000 mcg SUBLINGUAL QAM RF: 0 xyzpgmvsd-homagyw-oxaew acid 400-200-1 mg Tablet 2 tab PO HS RF: 0 buspirone 10 mg Tablet 20 mg PO BID RF: 0 bupropion HCl [Wellbutrin XL] 150 mg tablet extended release 24 hr 150 mg PO QAM RF: 0 acetaminophen [Tylenol Extra Strength] 500 mg Tablet 1,000 mg PO Q6H PRN (Reason: Pain) RF: 0 ibuprofen [Advil] 200 mg Tablet 400 - 600 mg PO Q6H PRN (Reason: rapp/pain) RF: 0 propranolol 80 mg capsule,extended release 24 hr 80 mg PO HS RF: 0 tamsulosin 0.4 mg capsule 0.4 mg PO HS Qty: 30 RF: 0 gabapentin 400 mg capsule 800 mg PO BID RF: 0 sertraline 50 mg tablet 75 mg PO QAM RF: 0 potassium chloride [Klor-Con M20] 20 mEq tablet,ER particles/crystals 20 meq PO BID Qty: 14 RF: 0 phenazopyridine [Pyridium] 200 mg tablet 200 mg PO Q8H PRN (Reason: pain) 30 Days Qty: 10 RF: 0 Discontinued doxycycline hyclate 100 mg tablet 100 mg PO BID Qty: 20 RF: 0 Discharge Orders: Discharge Order (Routine); Ordered 08/25/20 Ordered By: Nadege Kaur/Other Patient Handouts: Anatomy of the Female Urinary Tract Admission Data Admit Date/Time: 08/20/20 23:37 Attending Provider: Isak Sharp Admit Provider: Lissette Douglass Primary Care Provider: Leora Byrne Other Providers: Mariel Sanchez ; Lissette Douglass ; Chidi Pereira. Other Interventions: Discharge Summary Assessment (RN) Last Done: 08/25/20 15:36 Supervising Physician Co-Signing Physician Notes I personally examined the patient and verified all delarosa points of history and exam, discussed case, and agree with decision making with Dr Harmon. feels up to going home. asks good questions about comprehensive plan, working ddxs, etc. also asks if she could have a less potent narcotic so that she can maybe start to try to use lesser narcotics than percocet when she feels like she might not need something quite as strong. notes that she does not have a contract wtih her pain management doc that would be violated by me sending an Rx. Vitals noted, in general she is somewhat uncomfortable appearing, although awake and pleasant. HEENT normocephalic atraumatic mucous membranes moist. Breathing unlabored no accessory muscle use good effort. Skin shows no rashes n o pallor or icterus. Neuro shows no focal deficits Abdominal and back painseems to be a complex interplay of urologic pain as well as biomechanical/myofascial pain, likely with a significant amount of back and forth somatic visceral and viscerosomatic reflexes, and possibly also interstitial cystitis. Fortunately MRI did not show anything to really cause any nerve root impingement/radiculopathy, so the biomechanical portion of this is likely all myofascialrather than nerve root radiculartreatment for this will be outpatient chiropractic and massage. consider treatment for interstitial cystitis, discussed that while quite awkward, pelvic floor release techniques might be helpful for this. Discussed management for constipation predominant IBS to help with overall abdominal pain, as well as bladder symptomsbowel regimen, and home with MiraLAX. On and off urinary retention to be followed -- and oxybutynin reduced to prn bladder spasms only to minimize use. small Rx for hydrocodone/APAP to try to replace oxycodone/APAP slowly over time (aware now that chronic narcotics are risk and benefit given pain control but also tolerance and narcotics induced hyperalgesia) -chiropractic/massage for now for myofascial/biomechanical/somatovisceral component (possibly escalate to DO for OMT and/or escalate to pain doc for myofascial trigger point injections) (thoracic region and pelvic floor as anticipated areas to be treated) -miralax for bowel regimen for IBS portion -urology for anatomic urologic portion and collaborating on probable interstitial cystitis -PCP to assist/collaborate on interstitial cystitis as well -briefly touched on stress management stable for home, otherwise as above Resident Activity Tracking Resident Involvement: Resident Care Provided Care Provided: Adult Hospital Medicine
--- NOTE | 2020-08-25 18:08 | Billing Data ---
Date of Service August 25, 2020 Coding Level of Care Code D/C Day Management >30 mins
== END 2020-08-25 18:31 | disposition home or self-care (01) | DRG 694 ==
LOC: ED 18:53 → 3N 23:37 → SUATTDRO 23:37 → 3N 08-21 00:04

== ENCOUNTER 2021-10-14 11:47 | Inpatient (IN) ==
[2021-10-14] MEDS ORDERED: ONDANSETRON INJ 2 MG/ML 2 ML VIAL IV STA (12:10)
[2021-10-14] MEDS ORDERED: HYDROmorphone INJ 0.5 MG/0.5 ML SYR IV STA ×2 (12:10→15:30)
[2021-10-14] MEDS ORDERED: SODIUM CHLORIDE 0.9% 1000ML 1,000 ML IV STA (12:10)
--- NOTE | 2021-10-14 12:18 | Emergency Department Note ---
History of Present Illness General Chief complaint: Abdominal Pain Stated complaint: SEVERE ABD PAIN NEAR RIBS AND EXTENDING TO BACK Time Seen by Provider: 10/14/21 11:54 Source: patient and family ( who is at the bedside) Mode of arrival: ambulatory Limitations: no limitations History of Present Illness Maximum Pain Intensity: 10 This patient is a 51-year-old female who comes in with epigastric abdominal. She was seen about a week ago for similar complaints. She said they called her back and put her on antibiotic for urinary infection which she still is on. She has been having ongoing epigastric pain and has had an evaluation including 2 recent endoscopies and a colonoscopy. No dysuria or hematuria. She said on the most recent endoscopy she was told that her doctor to the gallbladder was dilat ed and schedule have an ultrasound. She has had no fever but felt sweaty she has been vomiting and having cramping. Denies as she has had a hysterectomy. No trauma or injury. Talking to the patient and her this is been ongoing issue. She tells me that her doctor is out of town. Home Medications Medication Instructions Recorded Confirmed Type clonazepam 1 mg tablet 1 mg PO BID PRN 02/10/18 10/14/21 History cyanocobalamin (vitamin B-12) 5,000 mcg SUBLINGUAL QAM 03/10/18 10/14/21 History 2,500 mcg sublingual tablet (Vitamin B-12) kukawutcy-lqipmtd-zzbhk acid 400 2 tab PO HS 03/10/18 10/14/21 History mg-200 mg-1 mg tablet multivitamin 2 tab PO QAM 03/10/18 10/14/21 History buspirone 10 mg tablet 20 mg PO BID 07/21/18 10/14/21 History acetaminophen 500 mg tablet 1,000 mg PO Q6H PRN 09/19/19 10/14/21 History (Tylenol Extra Strength) bupropion HCl 150 mg 24 hr tablet, 150 mg PO QAM 09/19/19 10/14/21 History extended release (Wellbutrin XL) ibuprofen 200 mg tablet (Advil) 400 - 600 mg PO Q6H PRN 09/19/19 10/14/21 History htwfujfyii-njhkgxeumnjdn-cmaoddkm 1 - 2 tab PO Q6 PRN 30 Days #9 tab 05/23/20 10/14/21 Rx 50 mg-325 mg-40 mg tablet gabapentin 400 mg capsule 800 mg PO BID 06/26/20 10/14/21 History potassium chloride 20 mEq 20 meq PO BID #14 tab 06/26/20 10/14/21 Rx tablet,extended release(part/cryst) (Klor-Con M) sertraline 50 mg tablet 75 mg PO QAM 06/26/20 10/14/21 History propranolol 80 mg capsule,24 80 mg PO HS 08/05/20 10/14/21 History hr,extended release tamsulosin 0.4 mg capsule 0.4 mg PO HS #30 cap 08/15/20 10/14/21 Rx oxybutynin chloride 5 mg tablet 5 mg PO BID PRN #20 tab 08/17/20 10/14/21 Rx ketorolac 10 mg tablet 10 mg PO BID PRN 5 Days #10 tab 08/18/20 10/14/21 Rx oxycodone-acetaminophen 7.5 mg-325 1 tab PO Q8H PRN #7 tab 09/08/20 10/14/21 Rx mg tablet (Percocet) dicyclomine 20 mg tablet 20 mg PO QID #20 tab 10/05/21 10/14/21 Rx famotidine 20 mg tablet 20 mg PO BID #20 tab 10/05/21 10/14/21 Rx ondansetron 4 mg disintegrating 4 mg PO Q6H PRN #14 tab 10/05/21 10/14/21 Rx tablet sucralfate 100 mg/mL oral 10 ml PO QID #420 ml 10/05/21 10/14/21 Rx suspension (Carafate) cefdinir 300 mg capsule 300 mg PO BID 10/14/21 10/14/21 History Allergies Allergy/AdvReac Type Severity Reaction Status Date / Time rizatriptan Allergy Severe Difficulty Verified 10/14/21 15:50 Breathing benzoin Allergy Unknown USED TO Verified 10/14/21 15:50 PUT UNDER STERI STRIPS TO KEEP THEM ON -- BLISTERS tramadol AdvReac Mild N/V Verified 10/14/21 15:50 Past Med/Surg History Medical History Cervical disc herniation (02/18/14) Cervical radiculopathy GOOD ROM PER PT Chronic low back pain Chronic neck pain Disc degeneration, lumbar NEL (generalized anxiety disorder) Hx of migraines MDD (major depressive disorder) Migraine [place] Osteoarthritis Peripheral neuropathy Urge and stress incontinence Urinary retention Surgical History H/O hand surgery repair of hand injury due to a dog bite H/O wrist surgery History of breast biopsy History of cystoscopy History of esophagogastroduodenoscopy (EGD) History of mandibular surgery History of robot-assisted laparoscopic hysterectomy Hx of cystoscopy (~08/15/20) TURBT with stent placement [facility] Hx of lumpectomy LEFT (BENIGN) S/P cervical spinal fusion C4-C5 & C5-C6. TOTAL OF 3 FUSIONS ([place]). LIMITED RANGE TO LEFT. HAS BEEN INTUBATED SINCE. Cervical Arthroplasty C4-C5 02/18/14: MAC #3, ETT #7.0, Grade 1 View, Smooth intubation on 1st attempt S/P hardware removal CERVICAL S/P ureteral stent placement Family History Father Cardiac disorder Malignant neoplasm of colon Prostate cancer Colorectal cancer Aunt Breast cancer Denies family history of Ovarian cancer Social History Smoking Status: Never smoker Second Hand Exposure: No; Do You Dip or Chew Tobacco: No; Tobacco Cessation Education Requested by Patient: No Hx Alcohol Use: Yes Alcohol type: beer, wine and hard liquor Hx Substance Use: No Preferred Language: French Communication Ability: Effective Belly Dancer Required: No Beliefs That Will Affect Care: None marital status: Current Living Situation: Spouse Current Living Situation Comment: at home Other Information That Helps Us Care for You: No Feels Safe at Home: Yes Safety Concerns: Feels Safe At This Time Assistive Devices: None Review of Systems A total of 10 systems reviewed and were otherwise negative Physical Exam Vital Signs Vital Signs - 24 hr 10/14/21 11:51 10/14/21 12:10 10/14/21 12:41 Temperature 36.6 C Temperature Source Oral Pulse Rate 107 H Pulse Rate [Apical] 94 H Respiratory Rate 18 16 Respiratory Effort / Characteristics Non-Labored Respiratory Depth Normal Blood Pressure 152/79 H Blood Pressure [Left Arm] 161/85 H Blood Pressure Mean 103 Blood Pressure Mean [Left Arm] 110 Pulse Oximetry 97 99 97 Oxygen Delivery Method Room Air Sepsis Recent Fever Within 48 Hours No Sepsis New/Unexplained Change in Mental Status No Sepsis Action Taken by Nursing No Action Required General: Well developed well nourished female who appears uncomfortable complaining of pain but in no acute distress, breathing comfortably on room air. Normal speech HEENT: Normal cephalic atraumatic. Pupils are equal round and reactive to light. Extraocular movements are intact. Oropharynx is pink with moist mucous membranes. No swelling of the mouth lips or tongue. Neck: Supple with a midline trachea. No meningeal signs or stiffness, no JVD or bruits. No Stridor. Chest: Clear to auscultation bilaterally. No wheezes or rhonchi. No increased work of breathing. Heart: Regular rate and rhythm without murmurs or gallops. Abdomen: Soft early tender in epigastric area. nondistended without rebound guarding or rigidity. Extremities: No cyanosis clubbing or edema. No calf tenderness or assymetry Spine/Back. Non tender to palpation. No CVA tenderness Skin: Good turgor without rashes. Neurologic exam: Cranial nerves two through 12 are intact. Motor and sensation are intact and symmetrical throughout. Course Administered Medications Bupropion HCl (Bupropion Xl 150 Mg Tabcr) 150 mg PO QAM [facility] Stop: 11/14/21 08:59 Last Admin: 10/16/21 09:04 Dose: 150 mg Documented by: [id number] Admin: 10/15/21 08:59 Dose: 150 mg Documented by: [id number] Buspirone HCl (Buspirone 5 Mg Tab) 20 mg PO BID [facility] Stop: 11/13/21 20:59 Last Admin: 10/16/21 09:04 Dose: 20 mg Documented by: [id number] Admin: 10/15/21 21:23 Dose: 20 mg Documented by: [id number] Admin: 10/15/21 08:59 Dose: 20 mg Documented by: [id number] Admin: 10/14/21 20:13 Dose: 20 mg Documented by: [id number] Clonazepam (Clonazepam 1 Mg Tab) 1 mg PO BID PRN PRN Reason: Anxiety Stop: 11/13/21 16:40 Last Admin: 10/14/21 22:56 Dose: 1 mg Documented by: [id number] Dicyclomine HCl (Dicyclomine Hcl 20 Mg Tab) 20 mg PO QID [facility] Stop: 11/13/21 16:59 Last Admin: 10/16/21 14:04 Dose: 20 mg Documented by: [id number] Admin: 10/16/21 09:05 Dose: 20 mg Documented by: [id number] Admin: 10/15/21 21:21 Dose: Not Given Documented by: [id number] Admin: 10/15/21 16:05 Dose: 20 mg Documented by: [id number] Admin: 10/15/21 13:50 Dose: 20 mg Documented by: [id number] Admin: 10/15/21 09:00 Dose: 20 mg Documented by: [id number] Admin: 10/14/21 20:13 Dose: 20 mg Documented by: [id number] Admin: 10/14/21 17:27 Dose: 20 mg Documented by: [id number] Gabapentin (Gabapentin 400 Mg Cap) 800 mg PO BID [facility] Stop: 11/13/21 20:59 Last Admin: 10/16/21 09:05 Dose: 800 mg Documented by: [id number] Admin: 10/15/21 21:23 Dose: 800 mg Documented by: [id number] Admin: 10/15/21 08:59 Dose: 800 mg Documented by: [id number] Admin: 10/14/21 20:14 Dose: 800 mg Documented by: [id number] Heparin Sodium (Porcine) (Heparin Sod 5,000 Unit/0.5 Ml Vial) 5,000 units SQ Q12 [facility] Stop: 11/13/21 20:59 Last Admin: 10/16/21 09:06 Dose: 5,000 units Documented by: [id number] Admin: 10/15/21 21:22 Dose: 5,000 units Documented by: [id number] Admin: 10/15/21 09:01 Dose: 5,000 units Documented by: [id number] Admin: 10/14/21 20:16 Dose: 5,000 units Documented by: [id number] Hydromorphone HCl (Hydromorphone Inj 0.5 Mg/0.5 Ml Syr) 0.5 mg IV Q4H PRN PRN Reason: Moderate Pain Stop: 10/28/21 16:40 Last Admin: 10/16/21 13:38 Dose: 0.5 mg Documented by: [id number] Admin: 10/16/21 09:18 Dose: 0.5 mg Documented by: [id number] Admin: 10/16/21 05:19 Dose: 0.5 mg Documented by: [id number] Admin: 10/15/21 22:55 Dose: 0.5 mg Documented by: [id number] Hydromorphone HCl (Hydromorphone Inj 1 Mg/Ml Syringe) 1 mg IV Q4H PRN PRN Reason: Severe Pain Stop: 10/29/21 11:56 Last Admin: 10/15/21 17:53 Dose: 1 mg Documented by: [id number] Pantoprazole Sodium 40 mg/ (Syringe) 10 mls @ 5 mls/min IV BID [facility] Stop: 11/13/21 20:59 Last Admin: 10/16/21 09:06 Dose: 5 mls/min Documented by: [id number] Admin: 10/15/21 21:22 Dose: 5 mls/min Documented by: [id number] Admin: 10/15/21 08:30 Dose: 5 mls/min Documented by: [id number] Admin: 10/14/21 20:17 Dose: 5 mls/min Documented by: [id number] Acetaminophen (Ofirmev) 1,000 mg in 100 mls @ 400 mls/hr IV Q8H PRN PRN Reason: pain/fever Stop: 10/17/21 16:40 Last Infusion: 10/15/21 21:45 Dose: 0 mls/hr Documented by: [id number] Admin: 10/15/21 21:30 Dose: 400 mls/hr Documented by: [id number] Infusion: 10/15/21 03:21 Dose: 0 mls/hr Documented by: [id number] Admin: 10/15/21 03:06 Dose: 400 mls/hr Documented by: [id number] Infusion: 10/14/21 20:59 Dose: 0 mls/hr Documented by: [id number] Admin: 10/14/21 20:44 Dose: 400 mls/hr Documented by: [id number] Parenteral Electrolytes (Normosol-R) 1,000 mls @ 150 mls/hr IV .Q6H40M [facility] Stop: 11/13/21 21:59 Last Admin: 10/16/21 11:42 Dose: 150 mls/hr Documented by: [id number] Infusion: 10/16/21 11:42 Dose: 150 mls/hr Documented by: [id number] Admin: 10/16/21 05:24 Dose: 150 mls/hr Documented by: [id number] Infusion: 10/16/21 05:24 Dose: 0 mls/hr Documented by: [id number] Admin: 10/15/21 21:55 Dose: 125 mls/hr Documented by: [id number] Infusion: 10/15/21 21:55 Dose: 0 mls/hr Documented by: [id number] Admin: 10/15/21 13:50 Dose: 125 mls/hr Documented by: [id number] Infusion: 10/15/21 13:50 Dose: 200 mls/hr Documented by: [id number] Admin: 10/15/21 09:00 Dose: 200 mls/hr Documented by: [id number] Infusion: 10/15/21 09:00 Dose: 200 mls/hr Documented by: [id number] Admin: 10/15/21 04:31 Dose: 200 mls/hr Documented by: [id number] Infusion: 10/15/21 04:31 Dose: 0 mls/hr Documented by: [id number] Infusion: 10/14/21 23:57 Dose: 200 mls/hr Documented by: [id number] Admin: 10/14/21 22:30 Dose: 110 mls/hr Documented by: [id number] Ondansetron HCl (Ondansetron Inj 2 Mg/Ml 2 Ml Vial) 4 mg IV Q6H PRN PRN Reason: Nausea Stop: 11/13/21 16:40 Last Admin: 10/15/21 08:35 Dose: 4 mg Documented by: [id number] Admin: 10/15/21 03:10 Dose: 4 mg Documented by: [id number] Admin: 10/14/21 18:04 Dose: 4 mg Documented by: [id number] Propranolol HCl (Propranolol Hcl La 80 Mg Capcr) 80 mg PO HS [place] Stop: 11/13/21 20:59 Last Admin: 10/15/21 21:22 Dose: 80 mg Documented by: [id number] Admin: 10/14/21 20:14 Dose: 80 mg Documented by: [id number] Sertraline HCl (Sertraline Hcl 50 Mg Tablet) 75 mg PO QAM [place] Stop: 11/14/21 08:59 Last Admin: 10/16/21 09:06 Dose: 75 mg Documented by: [id number] Admin: 10/15/21 08:59 Dose: 75 mg Documented by: [id number] Tamsulosin HCl (Tamsulosin Hcl 0.4 Mg Cap) 0.4 mg PO HS [place] Stop: 11/13/21 20:59 Last Admin: 10/15/21 21:24 Dose: 0.4 mg Documented by: [id number] Admin: 10/14/21 20:13 Dose: 0.4 mg Documented by: [id number] Discontinued Medications Hydromorphone HCl (Hydromorphone Inj 0.5 Mg/0.5 Ml Syr) 0.5 mg IV NOW STA Stop: 10/14/21 12:11 Last Admin: 10/14/21 12:18 Dose: 0.5 mg Documented by: [id number] Hydromorphone HCl (Hydromorphone Inj 1 Mg/Ml Syringe) 1 mg IV NOW STA Stop: 10/14/21 12:59 Last Admin: 10/14/21 13:10 Dose: 1 mg Documented by: [id number] Hydromorphone HCl (Hydromorphone Inj 0.5 Mg/0.5 Ml Syr) 0.5 mg IV NOW STA Stop: 10/14/21 15:31 Last Admin: 10/14/21 15:44 Dose: 0.5 mg Documented by: [id number] Hydromorphone HCl (Hydromorphone Inj 0.5 Mg/0.5 Ml Syr) 0.5 mg IV Q6H PRN PRN Reason: severe Pain Stop: 10/28/21 16:40 Last Admin: 10/15/21 11:25 Dose: 0.5 mg Documented by: [id number] Admin: 10/15/21 04:35 Dose: 0.5 mg Documented by: [id number] Admin: 10/14/21 22:23 Dose: 0.5 mg Documented by: [id number] Admin: 10/14/21 17:20 Dose: 0.5 mg Documented by: [id number] Sodium Chloride (Nss 1000ml) 1,000 mls @ 999 mls/hr IV .Q1H1M STA Stop: 10/14/21 13:10 Last Infusion: 10/14/21 13:52 Dose: 0 mls/hr Documented by: [id number] Admin: 10/14/21 12:19 Dose: 999 mls/hr Documented by: [id number] Sodium Chloride (Nss 1000ml) 1,000 mls @ 999 mls/hr IV .Q1H1M ONE Stop: 10/14/21 13:58 Last Infusion: 10/14/21 13:55 Dose: 0 mls/hr Documented by: [id number] Admin: 10/14/21 13:10 Dose: 999 mls/hr Documented by: [id number] Parenteral Electrolytes (Normosol-R) 1,000 mls @ 125 mls/hr IV .Q8H [place] Stop: 11/13/21 15:29 Last Infusion: 10/14/21 22:31 Dose: 0 mls/hr Documented by: [id number] Infusion: 10/14/21 22:26 Dose: 125 mls/hr Documented by: [id number] Infusion: 10/14/21 21:06 Dose: 125 mls/hr Documented by: [id number] Infusion: 10/14/21 20:43 Dose: 0 mls/hr Documented by: [id number] Admin: 10/14/21 17:20 Dose: 125 mls/hr Documented by: [id number] Cefepime HCl 2,000 mg/ Syringe 20 mls @ 5 mls/min IV Q12H [place]; Protocol Stop: 10/24/21 20:59 Last Admin: 10/16/21 05:19 Dose: 5 mls/min Documented by: [id number] Admin: 10/15/21 17:00 Dose: 5 mls/min Documented by: [id number] Admin: 10/15/21 05:57 Dose: 5 mls/min Documented by: [id number] Admin: 10/14/21 17:27 Dose: 5 mls/min Documented by: [id number] Magnesium Sulfate/Dextrose (Magnesium Sulfate / D5w) 1 gm in 100 mls @ 50 mls/hr IV Q2H [place] Stop: 10/14/21 22:59 Last Infusion: 10/15/21 01:14 Dose: 0 mls/hr Documented by: [id number] Admin: 10/14/21 22:48 Dose: 50 mls/hr Documented by: [id number] Infusion: 10/14/21 22:47 Dose: 0 mls/hr Documented by: [id number] Admin: 10/14/21 20:44 Dose: 50 mls/hr Documented by: [id number] Infusion: 10/14/21 20:43 Dose: 0 mls/hr Documented by: [id number] Admin: 10/14/21 18:43 Dose: 50 mls/hr Documented by: [id number] Ioversol (Optiray 320 100ml) 93 ml IV ONCE ONE Stop: 10/14/21 13:48 Last Admin: 10/14/21 17:37 Dose: Not Given Documented by: [id number] Ondansetron HCl (Ondansetron Inj 2 Mg/Ml 2 Ml Vial) 4 mg IV NOW STA Stop: 10/14/21 12:11 Last Admin: 10/14/21 12:18 Dose: 4 mg Documented by: [id number] Potassium Chloride (Potassium Chloride 10 Meq / 100ml Wtr) 10 meq IV Q1H [place] Stop: 10/15/21 18:01 Last Admin: 10/15/21 17:54 Dose: 10 meq Documented by: [id number] Admin: 10/15/21 16:59 Dose: 10 meq Documented by: [id number] Admin: 10/15/21 16:05 Dose: 10 meq Documented by: [id number] Admin: 10/15/21 14:49 Dose: 10 meq Documented by: [id number] Admin: 10/15/21 13:50 Dose: 10 meq Documented by: [id number] Promethazine HCl (Promethazine Hcl 25 Mg Tab) 12.5 mg PO ONE ONE Stop: 10/14/21 23:16 Last Admin: 10/15/21 00:24 Dose: 12.5 mg Documented by: [id number] Medical Decision Making Differential Diagnosis Gallbladder disease, liver disease, infection, kidney disease, cardiac disease, electrolyte or metabolic abnormality Medical Records Attestation: I reviewed the patient's medical records. Home Medications Current Medication List: was personally reviewed by me Laboratory Data Attestation: I reviewed the patient's lab results. Result diagrams: 10/16/21 05:33 10/16/21 05:33 Lab Results 10/14/21 10/14/21 10/14/21 Range/Units 12:15 12:15 12:15 WBC 13.86 H (4.8-10.8) K/uL RBC 4.15 L (4.2-5.4) M/uL Hgb 14.7 (12.0-16.0) g/dL Hct 41.9 (37-47) % MCV 101.0 H (80-100) fL MCH 35.4 H (25-34) pg MCHC 35.1 (32-36) g/dL RDW Std Deviation 50.4 H (36.4-46.3) fL RDW Coeff of Angelique 13.7 (11.5-14.5) % Plt Count 337 (130-400) K/uL MPV 9.5 (7.4-10.4) fL Immature Gran % (Auto) 0.3 % Neut % (Auto) 82.3 % Lymph % (Auto) 10.2 % Mathews % (Auto) 6.0 % Eos % (Auto) 0.8 % Baso % (Auto) 0.4 % Neut # (Auto) 11.41 H (1.4-6.5) K/uL Lymph # (Auto) 1.41 (1.2-3.4) K/uL Mathews # (Auto) 0.83 H (0.11-0.59) K/uL Eos # (Auto) 0.11 (0-0.5) K/uL Baso # (Auto) 0.06 (0-0.2) K/uL Immature Gran # (Auto) 0.04 H (0.00-0.02) K/uL Sodium 139 (136-145) mmol/L Potassium 3.3 L (3.5-5.1) mmol/L Chloride 99 (98-107) mmol/L Carbon Dioxide 28 (21-32) mmol/L Anion Gap 12 H (3-11) BUN 14 (6-23) mg/dl Creatinine 0.67 (0.6-1.2) mg/dl Est Cr Clr Drug Dosing Not Reportable Est GFR ( Amer) 118.0 ml/min Est GFR (Non-Af Amer) 101.8 ml/min BUN/Creatinine Ratio 20.9 H (10-20) Glucose 99 (70-99(Fasting)) mg/dl Calcium 10.4 H (8.5-10.1) mg/dl Phosphorus 2.9 (2.5-4.9) mg/dl Magnesium 1.6 L (1.7-2.4) mg/dl Total Bilirubin 1.4 H (0.2-1.0) mg/dl AST 34 (13-39) U/L ALT 14 (7-52) U/L Alkaline Phosphatase 84 (34-104) U/L Total Protein 6.7 (6.0-8.3) gm/dl Albumin 4.1 (3.4-5.0) gm/dl Globulin 2.6 (2.5-4.0) gm/dl Albumin/Globulin Ratio 1.6 (0.9-2) Triglycerides 88 (0-150) mg/dl Cholesterol 196 (0-200) mg/dl LDL Cholesterol, Calc 28 mg/dl VLDL Cholesterol, Calc 18 (0-30) mg/dl HDL Cholesterol 150 mg/dl Cholesterol/HDL Ratio 1.3 (0-5) Lipase 461 H (11-82) U/L SARS-CoV-2, RNA, NAAT (NEGATIVE) 10/14/21 Range/Units 14:41 WBC (4.8-10.8) K/uL RBC (4.2-5.4) M/uL Hgb (12.0-16.0) g/dL Hct (37-47) % MCV (80-100) fL MCH (25-34) pg MCHC (32-36) g/dL RDW Std Deviation (36.4-46.3) fL RDW Coeff of Angelique (11.5-14.5) % Plt Count (130-400) K/uL MPV (7.4-10.4) fL Immature Gran % (Auto) % Neut % (Auto) % Lymph % (Auto) % Mathews % (Auto) % Eos % (Auto) % Baso % (Auto) % Neut # (Auto) (1.4-6.5) K/uL Lymph # (Auto) (1.2-3.4) K/uL Mathews # (Auto) (0.11-0.59) K/uL Eos # (Auto) (0-0.5) K/uL Baso # (Auto) (0-0.2) K/uL Immature Gran # (Auto) (0.00-0.02) K/uL Sodium (136-145) mmol/L Potassium (3.5-5.1) mmol/L Chloride (98-107) mmol/L Carbon Dioxide (21-32) mmol/L Anion Gap (3-11) BUN (6-23) mg/dl Creatinine (0.6-1.2) mg/dl Est Cr Clr Drug Dosing Est GFR ( Amer) ml/min Est GFR (Non-Af Amer) ml/min BUN/Creatinine Ratio (10-20) Glucose (70-99(Fasting)) mg/dl Calcium (8.5-10.1) mg/dl Phosphorus (2.5-4.9) mg/dl Magnesium (1.7-2.4) mg/dl Total Bilirubin (0.2-1.0) mg/dl AST (13-39) U/L ALT (7-52) U/L Alkaline Phosphatase (34-104) U/L Total Protein (6.0-8.3) gm/dl Albumin (3.4-5.0) gm/dl Globulin (2.5-4.0) gm/dl Albumin/Globulin Ratio (0.9-2) Triglycerides (0-150) mg/dl Cholesterol (0-200) mg/dl LDL Cholesterol, Calc mg/dl VLDL Cholesterol, Calc (0-30) mg/dl HDL Cholesterol mg/dl Cholesterol/HDL Ratio (0-5) Lipase (11-82) U/L SARS-CoV-2, RNA, NAAT NEGATIVE (NEGATIVE) Imaging Data Attestation: I personally reviewed and interpreted this imaging study as follows: My Impression: Chest x-rayno acute infiltrate, failure, pneumothorax seen Radiologist's Impression: Chest X-Ray 10/14/21 12:10 XR chest 1V portable CLINICAL HISTORY: epigastric pain TECHNIQUE: Single frontal radiograph of the chest was obtained. Comparison: Comparison is made to chest radiograph 10/05/2021 FINDINGS: No lines and tubes are seen. The cardiomediastinal silhouette is normal. The lungs are clear. No evidence of pleural effusion or pneumothorax. IMPRESSION: No acute chest disease. ACT 112: Negative or not required by law. Electronically signed by: Loco Mijares M.D. 10/14/2021 12:57 PM Abdomen/Pelvis CT 10/14/21 13:00 CT abd pelvis IV con only CLINICAL HISTORY: epigastric pain, elev lipase, eval for pancreatitis TECHNIQUE: Helical axial images of the abdomen and pelvis were obtained and displayed. Automated dose lowering techniques and/or adjustment according to patient size were utilized for this exam. This exam was performed with intravenous contrast. CT DOSE: 346.04 mGy.cm COMPARISON: Comparison is made to CT abdomen pelvis 10/05/2020 FINDINGS: Lower chest: No acute abnormality Liver: Hepatic steatosis is noted. Gallbladder and biliary tree: No calcified gallstones. Normal caliber wall. No intra- or extrahepatic biliary ductal dilation. Pancreas: There is edema most prominent in the pancreatic head. Peripancreatic fat stranding is seen. Spleen: Unremarkable. Adrenals: Unremarkable. Kidneys and ureters: A tiny hypodensity in the left kidney is favored to represent a cyst. Bladder: Limited evaluation due to underdistention. Reproductive organs: Patient is status post hysterectomy. Bowel: Unremarkable appearance of the bowel. The appendix is normal. Lymph nodes Retroperitoneal: Unremarkable. Mesenteric: Unremarkable. Pelvic: Unremarkable. Peritoneum: Peritoneal stranding is seen in the upper abdomen about the pancreas. 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 Abdominal wall: Unremarkable. Bones: Unremarkable. IMPRESSION: 1. Acute pancreatitis. No peripancreatic fluid collections or necrosis is seen. 2. Hepatic steatosis. ACT 112: Negative or not required by law. Electronically signed by: Loco Mijares M.D. 10/14/2021 2:27 PM ECG Data Attestation: I personally reviewed and interpreted this ECG as follows: Indication: + chest pain Rate (beats per minute): 96 Rhythm: + normal sinus and + other (poor baseline) ECG Intervals/blocks: + Normal QRS, + Normal QT and + Normal SD ECG Mcfarlan: + Normal ECG ST segments: + T-wave inversions (Lateral) ECG Findings: no PACs or no PVCs Comparison ECG Date: from (07/06/20) Change: the following changes noted (T waves are now nonspecific/inverted laterally) MDM Narrative This patient is a 51-year-old female who has had some chronic abdominal pain. She tells me she had 2 endoscopies and colonoscopy done recently she is had extensive work-up she recently had endoscopy done at [facility] and was told that her gallbladder ducts look enlarged she is scheduled have a endoscopic ultrasound. It seems like this comes and goes and she is having another flareup. She was here the other day and had an extensive work-up done at the time and looked unremarkable. IV access was established she was hydrated with normal saline she was given Dilaudid 0.5 mg IV and Zofran 4 mg IV. She did require additional pain medication was given Dilaudid 1 mg IV and seems more comfortable. Her white count was elevated. Her electrolytes are within normal limits as is her renal function. Her lipase was significantly elevated compared to last time in light of this I did do a CT and there is findings consistent with pancreatitis. She did require additional IV hydration and pain medications. I do think she needs to be admitted for bowel rest and further treatment and evaluation. I have consulted the [facility] hospitalist to see her for these measures. Continuous cardiac monitoring: An order was placed in EMR for continuous cardiac monitoring. Upon my interpretation the patient was noted to be in normal sinus rhythm with a rate of 92 Impression & Plan Acute pancreatitis, Abdominal pain, Nausea & vomiting, Lab test negative for COVID-19 virus Discharge Plan Visit Data Chief Complaint: Abdominal Pain Stated Complaint: SEVERE ABD PAIN NEAR RIBS AND EXTENDING TO BACK ED Provider: Gordon Cardenas Discharge Problem: Acute pancreatitis, Abdominal pain, Nausea & vomiting, Lab test negative for COVID-19 virus Patient Disposition: Admitted As Inpatient Discharge Instructions Interventions: ED Discharge Assessment Last Done: 10/14/21 16:13
[2021-10-14 12:37] LABS: Basophils # (auto) 0.06 K/uL (0-0.2); Basophils % (auto) 0.4 %; Eosinophils # (auto) 0.11 K/uL (0-0.5); Eosinophils % (auto) 0.8 %; Hematocrit (blood only) 41.9 % (37-47); Hemoglobin 14.7 g/dL (12.0-16.0); Immature Granulocytes # (auto) 0.04 K/uL (0.00-0.02); Immature Granulocytes % (auto) 0.3 %; Lymphocytes # (auto) 1.41 K/uL (1.2-3.4); Lymphocytes % (auto) 10.2 %; Mean Corpuscular Hemoglobin 35.4 pg (25-34); Mean Corpuscular Hgb Conc 35.1 g/dL (32-36); Mean Platelet Volume 9.5 fL (7.4-10.4); Monocytes # (auto) 0.83 K/uL (0.11-0.59); Neutrophils # (auto) 11.41 K/uL (1.4-6.5); Neutrophils % (auto) 82.3 %; Platelet Count 337 K/uL (130-400); RDW Coefficient of Variation 13.7 % (11.5-14.5); RDW Standard Deviation 50.4 fL (36.4-46.3); Red Blood Count 4.15 M/uL (4.2-5.4); White Blood Count 13.86 K/uL (4.8-10.8)
[2021-10-14 12:55] LABS: Alanine Aminotransferase 14 U/L (7-52); Albumin Globulin Ratio 1.6 (0.9-2); Albumin Level 4.1 gm/dl (3.4-5.0); Alkaline Phosphatase 84 U/L (34-104); Anion Gap 12 (3-11); Aspartate Aminotransferase 34 U/L (13-39); BUN Creatinine Ratio 20.9 (10-20); Bilirubin,Total 1.4 mg/dl (0.2-1.0); Blood Urea Nitrogen 14 mg/dl (6-23); Calcium 10.4 mg/dl (8.5-10.1); Carbon Dioxide 28 mmol/L (21-32); Chloride 99 mmol/L (98-107); Est GFR (Non-African American) 101.8 ml/min; Globulin 2.6 gm/dl (2.5-4.0); Glucose 99 mg/dl (70-99(Fasting)); Lipase 461 U/L (11-82); Potassium 3.3 mmol/L (3.5-5.1); Sodium 139 mmol/L (136-145); Total Protein 6.7 gm/dl (6.0-8.3)
[2021-10-14] MEDS ORDERED: SODIUM CHLORIDE 0.9% 1000ML 1,000 ML IV ONE (12:58)
[2021-10-14] MEDS ORDERED: HYDROmorphone INJ 1 MG/ML SYRINGE IV STA (12:58)
--- NOTE | 2021-10-14 12:59 | XRay Report ---
XR chest 1V portable CLINICAL HISTORY: epigastric pain TECHNIQUE: Single frontal radiograph of the chest was obtained. Comparison: Comparison is made to chest radiograph 10/05/2021 FINDINGS: No lines and tubes are seen. The cardiomediastinal silhouette is normal. The lungs are clear. No evid ence of pleural effusion or pneumothorax. IMPRESSION: No acute chest disease. ACT 112: Negative or not required by law. Electronically signed by: Loco Mijares M.D. 10/14/2021 12:57 PM
[2021-10-14] MEDS ORDERED: OPTIRAY 320 100ml IV ONE (13:47)
--- NOTE | 2021-10-14 14:29 | CT Scan Report ---
CT abd pelvis IV con only CLINICAL HISTORY: epigastric pain, elev lipase, eval for pancreatitis TECHNIQUE: Helical axial images of the abdomen and pelvis were obtained and displayed. Automated dose lowering techniques and/or adjustment according to patient size were utilized for this exam. This e xam was performed with intravenous contrast. CT DOSE: 346.04 mGy.cm COMPARISON: Comparison is made to CT abdomen pelvis 10/05/2020 FINDINGS: Lower chest: No acute abnormality Liver: Hepatic steatosis is noted. Gallbladder and biliary tree: No calcified gallstones. Normal caliber wall. No intra- or extrahepatic biliary ductal dilation. Pancreas: There is edema most prominent in the pancreatic head. Peripancreatic fat stranding is seen. Spleen: Unremarkable. Adrenals: Unremarkable. Kidneys and ureters: A tiny hypodensity in the left kidney is favored to represent a cyst. Bladder: Limited evaluation due to underdistention. Reproductive organs: Patient is status post hysterectomy. Bowel: Unremarkable appearance of the bowel. The appendix is normal. Lymph nodes Retroperitoneal: Unremarkable. Mesenteric: Unremarkable. Pelvic: Unremarkable. Peritoneum: Peritoneal stranding is seen in the upper abdomen about the pancreas. 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 Abdominal wall: Unremarkable. Bones: Unremarkable. IMPRESSION: 1. Acute pancreatitis. No peripancreatic fluid collections or necrosis is seen. 2. Hepatic steatosis. ACT 112: Negative or not required by law. Electronically signed by: Loco Mijares M.D. 10/14/2021 2:27 PM
[2021-10-14] MEDS ORDERED: NORMOSOL-R 1,000 ML IV SCH (15:30)
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
[2021-10-14 15:58] LABS: Chol HDL Ratio 1.3 (0-5); Magnesium 1.6 mg/dl (1.7-2.4); Phosphorus 2.9 mg/dl (2.5-4.9)
[2021-10-14 16:06] LABS: Color Urine Orange
[2021-10-14 16:07] LABS: Appearance Urine Clear (Clear); Specific Gravity Urine 1.054 (1.000-1.030)
[2021-10-14 16:33] LABS: Bacteria Urine Negative (Negative); Calcium Oxalate Crystals Urine Present (None Prsent); Epithelial Cell Urine 20-30 /lpf (0-5); RBC Urine 0-4 /hpf (0-4); WBC Urine 0-5 /hpf (0-5)
[2021-10-14] MEDS ORDERED: clonazePAM 1 MG TAB PO PRN (16:41)
[2021-10-14] MEDS: HYDROmorphone INJ 0.5 MG/0.5 ML SYR IV PRN ×2 (17:20→22:23)
[2021-10-14] MEDS: CEFEPIME 2,000 MG in SYRINGE 0 ML IV SCH (17:27)
[2021-10-14] MEDS: DICYCLOMINE HCL 20 MG TAB PO SCH ×2 (17:27→20:13)
[2021-10-14] MEDS: ONDANSETRON INJ 2 MG/ML 2 ML VIAL IV PRN (18:04)
[2021-10-14] MEDS: MAGNESIUM SULFATE / D5W 1 GM/100 ML BAG IV SCH ×3 (18:43→22:48)
[2021-10-14] MEDS: TAMSULOSIN HCL 0.4 MG CAP PO SCH (20:13)
[2021-10-14] MEDS: busPIRone 5 MG TAB PO SCH (20:13)
[2021-10-14] MEDS: GABAPENTIN 400 MG CAP PO SCH (20:14)
[2021-10-14] MEDS: PROPRANOLOL HCL LA 80 MG CAPCR PO SCH (20:14)
[2021-10-14] MEDS: HEPARIN SOD 5,000 UNIT/0.5 ML VIAL SQ SCH (20:16)
[2021-10-14] MEDS: PANTOprazole 40 MG in SYRINGE 0 ML IV SCH (20:17)
[2021-10-14] MEDS: ACETAMINOPHEN 1,000 MG/100 ML VIAL IV PRN (20:44)
--- NOTE | 2021-10-14 22:29 | Magnetic Resonance Report ---
MR MRCP CLINICAL HISTORY: pancreatitis, dilated gall bladder TECHNIQUE: Multiplanar multisequence MR images of the abdomen were obtained, as per MRCP protocol. . COMPARISON: Comparison is made to CT abdomen pelvis 10/14/2021 FINDINGS: Exam is limited by patient motion. Lower chest: No acute abnormality Liver: Unremarkable. No focal lesions are seen. Gallbladder and biliary tree: The gallbladder wall does not appear thickened. The common bile duct me asures 6 mm in diameter, top normal. Pancreas: Edema is seen in the pancreatic head. Peripancreatic stranding is noted. Spleen: Unremarkable. Adrenals: Unremarkable. Kidneys and ureters: Unremarkable. Bowel: Unremarkable. Lymph nodes Retroperitoneal: Unremarkable. Mesenteric: Unremarkable. Peritoneum: Mild ascites is noted in the peritoneum, more conspicuous than in the CT. Vessels: Unremarkable. Abdominal wall: Unremarkable. Bones: Minimal degenerative changes are seen. IMPRESSION: 1. Limited exam due to patient motion. Pancreatic head/body edema and surrounding fluid are seen com patible with acute pancreatitis. No walled fluid collections are seen. 2. The common bile duct is top normal in diameter. No filling defects are seen to suggest choledocho lithiasis. The gallbladder wall is not thickened, acute cholecystitis is unlikely. ACT 112: Negative or not required by law. Electronically signed by: Loco Mijares M.D. 10/14/2021 10:27 PM
[2021-10-14] MEDS: NORMOSOL-R 1,000 ML IV SCH (22:30)
--- NOTE | 2021-10-14 23:01 | Communication Note ---
Date of Service: October 14, 2021 Called about 9/10 pain. On exam, hunched over w/ emesis bag. Appears shaky/trembing. Denies etoh use or benzo withdrawal. Giving Dilaudid 0.5mg 1 hour early. PO phenergan. Patient getting home qhs prn klonopin. Increasing fluids from 110 to 200mL/hr. Day team to assess/decrease as needed.
[2021-10-14] MEDS ORDERED: PROMETHAZINE HCL 25 MG TAB PO ONE (23:15)
[2021-10-15] MEDS: ACETAMINOPHEN 1,000 MG/100 ML VIAL IV PRN ×2 (03:06→21:30)
[2021-10-15] MEDS: ONDANSETRON INJ 2 MG/ML 2 ML VIAL IV PRN ×2 (03:10→08:35)
[2021-10-15] MEDS: NORMOSOL-R 1,000 ML IV SCH ×4 (04:31→21:55)
[2021-10-15] MEDS: HYDROmorphone INJ 0.5 MG/0.5 ML SYR IV PRN ×3 (04:35→22:55)
[2021-10-15] MEDS: CEFEPIME 2,000 MG in SYRINGE 0 ML IV SCH ×2 (05:57→17:00)
[2021-10-15 07:55] LABS: Basophils # (auto) 0.03 K/uL (0-0.2); Basophils % (auto) 0.3 %; Eosinophils # (auto) 0.51 K/uL (0-0.5); Eosinophils % (auto) 5.4 %; Hematocrit (blood only) 35.4 % (37-47); Hemoglobin 12.2 g/dL (12.0-16.0); Immature Granulocytes # (auto) 0.01 K/uL (0.00-0.02); Immature Granulocytes % (auto) 0.1 %; Lymphocytes # (auto) 1.39 K/uL (1.2-3.4); Lymphocytes % (auto) 14.7 %; Mean Corpuscular Hemoglobin 35.1 pg (25-34); Mean Corpuscular Hgb Conc 34.5 g/dL (32-36); Mean Corpuscular Volume 101.7 fL (80-100); Mean Platelet Volume 9.9 fL (7.4-10.4); Monocytes % (auto) 7.4 %; Neutrophils % (auto) 72.1 %; Platelet Count 245 K/uL (130-400); RDW Coefficient of Variation 13.6 % (11.5-14.5); RDW Standard Deviation 50.6 fL (36.4-46.3); Red Blood Count 3.48 M/uL (4.2-5.4); White Blood Count 9.44 K/uL (4.8-10.8)
[2021-10-15 08:11] LABS: BUN Creatinine Ratio 17.5 (10-20); Bilirubin Direct 0.2 mg/dl (0-0.2); Bilirubin,Total 0.9 mg/dl (0.2-1.0); Calcium 7.5 mg/dl (8.5-10.1); Creatinine Clr Calc Pharmacy 105.9 ml/min; Est GFR (African American) 120.4 ml/min; Est GFR (Non-African American) 103.9 ml/min; Magnesium 2.3 mg/dl (1.7-2.4); Total Protein 4.9 gm/dl (6.0-8.3)
[2021-10-15] MEDS: PANTOprazole 40 MG in SYRINGE 0 ML IV SCH ×2 (08:30→21:22)
[2021-10-15] MEDS: GABAPENTIN 400 MG CAP PO SCH ×2 (08:59→21:23)
[2021-10-15] MEDS: SERTRALINE HCL 50 MG TABLET PO SCH (08:59)
[2021-10-15] MEDS: busPIRone 5 MG TAB PO SCH ×2 (08:59→21:23)
[2021-10-15] MEDS: buPROPion XL 150 MG TABCR PO SCH (08:59)
[2021-10-15] MEDS: DICYCLOMINE HCL 20 MG TAB PO SCH ×4 (09:00→21:21)
[2021-10-15] MEDS: HEPARIN SOD 5,000 UNIT/0.5 ML VIAL SQ SCH ×2 (09:01→21:22)
--- NOTE | 2021-10-15 12:17 | Gastrointestinal Consultation ---
Date of Consultation October 15, 2021 Assessment & Plan (1) Acute pancreatitis: Etiology is not determined at this time, no signs of biliary obstruction. No obvious stones in the gallbladder, I agree with IV fluids at 150 to 200 cc an hour of lactated Ringer's. Intermittent IV pain control, Triglycerides and fasting lipid panel to be ordered, follow-up with [facility] as previously scheduled. Please call with any questions or concerns. History of Present Illness Attending Physician: Abdullahi Landeros MD History of Present Illness 51-year-old female has been following closely with [facility] for chronic abdominal pain, and apparently had upper and lower endoscopies 2 to 4 weeks ago here at their endoscopy center. She presents with worsening but typical epigastric abdominal pain that she describes as sharp in nature, coming in waves, and associated with nausea with intermittent vomiting. She also notes that she has had some heartburn, no hematemesis melena or hematochezia. She apparently is scheduled for further testing at [place], presumably this may be an ultrasound via endoscopic approach, however I am unsure of that. Upon presentation here she is been found to have evidence of biochemical pancreatitis as well as imaging consistent with pancreatitis without complication and without evidence of biliary obstruction. She denies any frequent alcohol, has no family history that she is aware of of pancreatitis, hyperlipidemia or other obvious etiologies for pancreatitis. She does not or has not started any new medicatio ns recently. She is more comfortable since presentation, she has IV fluids running, and is intermittently getting pain medication, she is setting up in bed without distress. Allergies Allergy/AdvReac Type Severity Reaction Status Date / Time rizatriptan Allergy Severe Difficulty Verified 10/14/21 15:50 Breathing benzoin Allergy Unknown USED TO Verified 10/14/21 15:50 PUT UNDER STERI STRIPS TO KEEP THEM ON -- BLISTERS tramadol AdvReac Mild N/V Verified 10/14/21 15:50 Home Medications Medication Instructions Recorded Confirmed Type clonazepam 1 mg tablet 1 mg PO BID PRN 02/10/18 10/14/21 History cyanocobalamin (vitamin B-12) 5,000 mcg SUBLINGUAL QAM 03/10/18 10/14/21 History 2,500 mcg sublingual tablet (Vitamin B-12) wplptnhrh-cyejpgs-tuzxw acid 400 2 tab PO HS 03/10/18 10/14/21 History mg-200 mg-1 mg tablet multivitamin 2 tab PO QAM 03/10/18 10/14/21 History buspirone 10 mg tablet 20 mg PO BID 07/21/18 10/14/21 History acetaminophen 500 mg tablet 1,000 mg PO Q6H PRN 09/19/19 10/14/21 History (Tylenol Extra Strength) bupropion HCl 150 mg 24 hr tablet, 150 mg PO QAM 09/19/19 10/14/21 History extended release (Wellbutrin XL) ibuprofen 200 mg tablet (Advil) 400 - 600 mg PO Q6H PRN 09/19/19 10/14/21 History yiqnjsbowv-oileaunklnkmd-qihjmqmo 1 - 2 tab PO Q6 PRN 30 Days #9 tab 05/23/20 10/14/21 Rx 50 mg-325 mg-40 mg tablet gabapentin 400 mg capsule 800 mg PO BID 06/26/20 10/14/21 History potassium chloride 20 mEq 20 meq PO BID #14 tab 06/26/20 10/14/21 Rx tablet,extended release(part/cryst) (Klor-Con M) sertraline 50 mg tablet 75 mg PO QAM 06/26/20 10/14/21 History propranolol 80 mg capsule,24 80 mg PO HS 08/05/20 10/14/21 History hr,extended release tamsulosin 0.4 mg capsule 0.4 mg PO HS #30 cap 08/15/20 10/14/21 Rx oxybutynin chloride 5 mg tablet 5 mg PO BID PRN #20 tab 08/17/20 10/14/21 Rx ketorolac 10 mg tablet 10 mg PO BID PRN 5 Days #10 tab 08/18/20 10/14/21 Rx oxycodone-acetaminophen 7.5 mg-325 1 tab PO Q8H PRN #7 tab 09/08/20 10/14/21 Rx mg tablet (Percocet) dicyclomine 20 mg tablet 20 mg PO QID #20 tab 10/05/21 10/14/21 Rx famotidine 20 mg tablet 20 mg PO BID #20 tab 10/05/21 10/14/21 Rx ondansetron 4 mg disintegrating 4 mg PO Q6H PRN #14 tab 10/05/21 10/14/21 Rx tablet sucralfate 100 mg/mL oral 10 ml PO QID #420 ml 10/05/21 10/14/21 Rx suspension (Carafate) cefdinir 300 mg capsule 300 mg PO BID 10/14/21 10/14/21 History Patient History Medical History Cervical disc herniation (02/18/14) Cervical radiculopathy GOOD ROM PER PT Chronic low back pain Chronic neck pain Disc degeneration, lumbar NEL (generalized anxiety disorder) Hx of migraines MDD (major depressive disorder) Migraine [place] Osteoarthritis Peripheral neuropathy Urge and stress incontinence Urinary retention Surgical History H/O hand surgery repair of hand injury due to a dog bite H/O wrist surgery History of breast biopsy History of cystoscopy History of esophagogastroduodenoscopy (EGD) History of mandibular surgery History of robot-assisted laparoscopic hysterectomy Hx of cystoscopy (~08/15/20) TURBT with stent placement [facility] Hx of lumpectomy LEFT (BENIGN) S/P cervical spinal fusion C4-C5 & C5-C6. TOTAL OF 3 FUSIONS (Orthocon). LIMITED RANGE TO LEFT. HAS BEEN INTUBATED SINCE. Cervical Arthroplasty C4-C5 02/18/14: MAC #3, ETT #7.0, Grade 1 View, Smooth intubation on 1st attempt S/P hardware removal CERVICAL S/P ureteral stent placement Family History Father Cardiac disorder Malignant neoplasm of colon Prostate cancer Colorectal cancer Aunt Breast cancer Denies family history of Ovarian cancer Social History Smoking Status: Never smoker Second Hand Exposure: No; Do You Dip or Chew Tobacco: No; Tobacco Cessation Education Requested by Patient: No Hx Alcohol Use: Yes Alcohol type: beer, wine and hard liquor Hx Substance Use: No Preferred Language: Ukrainian Communication Ability: Effective [employer] Director Required: No Beliefs That Will Affect Care: None marital status: Current Living Situation: Spouse Current Living Situation Comment: at home Other Information That Helps Us Care for You: No Feels Safe at Home: Yes Safety Concerns: Feels Safe At This Time Assistive Devices: None Review of Systems Review of Systems: REVIEW OF SYSTEMS: Constitutional: No fever, sweats or chills Eyes: No diplopia, no worsening or blurred vision ENT: normal hearing, no trouble swallowing Respiratory: No cough, sputum, dyspnea at rest or on exertion Cardiovascular: No chest pain, tightness or palpitations Abdomen: (+) pain, nausea, vomiting, diarrhea, inability to keep down food or medicaitons, NO constipation Musculoskeletal: N(+) chronic back and neck joint pain, No calf pain, swelling Neurologic: No weakness, numbness/tingling, or balance problems Psychiatric: (+) anxiety or depression Physical Exam Physical Exam: PHYSICAL EXAM: General: awake, alert, no apparent distress Head: Normocephalic, atraumatic ENT: PERRL, EOMI, no pharyngeal exudate, mucous membranes dry Neuro: AAO x 3, speech clear and appropriate, strength intact bilaterally 5/5, sensation intact and equal all extremities and dermatomes, no pronator drift Chest: equal rise and fall of the chest, no accessory muscle use, no heaves or thrills, Clear to auscultation, on room air, Cardiac: Regular rate and rhythm, telemetry reviewed, skin warm dry, cap refill <3 seconds, peripheral pulses +2 no JVD, no murmur, no edema GI: Mild epigastric pain, worse with inspiration, non-tender to lower quads, no rebound guarding : Spontaneously voiding, no pain, no CVA tenderness, Extremities: Normal inspection, no peripheral edema or erythema, calfs nontender to palpation Psych: Normal mood and affect Skin: bruises to lower legs and abrasion right hip Results & Data ([facility]) Vital Signs (Past 12 Hours) Vital Signs Temp Pulse Pulse Resp BP Pulse Ox 10/15/21 11:45 36.9 C 71 19 120/80 100 10/15/21 09:23 77 10/15/21 07:08 36.9 C 70 19 120/79 100 10/15/21 04:11 36.7 C 110 H 17 109/71 100 10/15/21 02:11 107 H Diagnostic Findings MRI reviewed no signs of cholecystitis cholelithiasis and no choledocholithiasis. (1) Acute pancreatitis Acute pancreatitis complication: unspecified Pancreatitis type: other Qualified Code(s): K85.80 - Other acute pancreatitis without necrosis or infection
[2021-10-15] MEDS: POTASSIUM CHLORIDE 10 MEQ / 100ML WTR IV SCH ×5 (13:50→17:54)
--- NOTE | 2021-10-15 14:17 | Hospitalist Progress Note ---
Date of Service October 15, 2021 Assessment & Plan (1) Acute pancreatitis: Plan: Acute pancreatitis with ongoing history of N/V diarrhea -Pancreatitis suggested on imaging with CT of the abdomen pelvis. Mild elevation of lipase - pancreatitis not noted on RUQUS performed on 10/05 - new medications not the usual offenders, denies ETOH use - glucose normal, trig panel normal, ionized calcium 1.17 - with distended gallbladder but RUQUS and CT scan from earlier today not normal as well as CBD - MRCP will obtain- bili mild elevation with otherwise normal biliary labs - GI consultation appreciated reinforced supportive care - pain control with Tylenol IV Hydromorphone (2) Nausea & vomiting: Plan: as above - Protonix 40mg IV BID - Hold Carfate - EGD from 06/06 notes gastritis (3) NEL (generalized anxiety disorder): Plan: Continue Colonazepam PRN - Continue buspirone and buproprion (4) MDD (major depressive disorder): Plan: As above (5) Cervical radiculopathy: Plan: Continue gabapentin - add tylenol IV until able to take PO (6) Electrolyte abnormality: Plan: Secondary to n/v and decrease PO intake over the past week Replete K Replete mag follow iCA/Calcium levels (7) UTI (urinary tract infection): Plan: Chronic follows with urology for hematuria and left flank pain - 10/05 remains with E. Coli - stop cefdinir - Cover with Cefepime for now as this will also provide GI coverage until further evaluations completed (8) Hematuria: Plan: She reports improvement of this but remains with left flank pain reason for cystoscopy has had bleeding workup completed in the past awaiting follow up with hematology follow noted hysterectomy on CT scan Admission and Anticipated Discharge Date Admission Date: October 14, 2021 Subjective pt with persistent abdominal pain and imaging consistent with pancreatitis, no immediate obstructive cause and pt denies regular alcohol use, pain is also epigastic Review of Systems Review of Systems: Mild distress and fatigue no headache, no visual changes no speech or swallowing issues no chest pain, pressure or palpitations no shortness of breath, cough or wheezes Abdominal pain, crampy and left upper quadrand, assocaited nausea without vomiting no dysuria, hematuria or frequency no focal joint pain or swelling left flank and lower back pain, not defined CVA tenderness no bruising, bleeding or rashes no focal signs of weakness or numbness or altered sensation no complaints of anxiety or depression.. Physical Exam Physical Exam: The patient appeared well nourished and normally developed. She is moderately uncomfortable with pain Vital signs as documented. Head exam is normocephalic atraumatic Neck is without JVD, thyromegaly, or carotid bruits. Lungs are clear to auscultation, no focal loss of breath sounds Cardiac exam, Rhythm is regular.. No murmurs, rubs or gallops. Abdominal exam reveals normal to hyperactive bowel sounds, soft reproducible tenderness mostly in the epigastrium and left upper quadrant Extremities are nonedematous and both pedal pulses are present Neurologic exam is alert and oriented, no focal loss of strength or sensation Skin is without bruises or rashes Psychologically is without concerns for anxiety or depression.. Results & Data Results & Data ([facility]) Vital Signs (Past 12 Hours) Vital Signs Temp Pulse Pulse Resp BP Pulse Ox 10/15/21 11:45 98.4 F 71 19 120/80 100 10/15/21 09:23 77 10/15/21 07:08 98.4 F 70 19 120/79 100 10/15/21 04:11 98.1 F 110 H 17 109/71 100 PG Care Time/CCT Total # of Minutes Spent Total Time Spent with Patient: Total time spent is greater than 50% in coordination of care (as documented) at patient's floor/unit and/or counseling patient: Coding Level of Care Code 95016 Subseq Hosp Care Lvl 2 Diagnoses Acute pancreatitis K85.80 Acute pancreatitis complication: unspecified Pancreatitis type: other Nausea & vomiting R11.2 Vomiting type: unspecified NEL (generalized anxiety disorder) F41.1 MDD (major depressive disorder) F32.9 Cervical radiculopathy M54.12 Electrolyte abnormality E87.8 UTI (urinary tract infection) N39.0 Hematuria R31.9 (1) Acute pancreatitis Acute pancreatitis complication: unspecified Pancreatitis type: other Qualified Code(s): K85.80 - Other acute pancreatitis without necrosis or infection (2) Nausea & vomiting Vomiting type: unspecified Qualified Code(s): R11.2 - Nausea with vomiting, unspecified
[2021-10-15] MEDS: HYDROmorphone INJ 1 MG/ML SYRINGE IV PRN (17:53)
[2021-10-15] MEDS: PROPRANOLOL HCL LA 80 MG CAPCR PO SCH (21:22)
[2021-10-15] MEDS: TAMSULOSIN HCL 0.4 MG CAP PO SCH (21:24)
[2021-10-16] MEDS: HYDROmorphone INJ 0.5 MG/0.5 ML SYR IV PRN ×4 (05:19→17:41)
[2021-10-16] MEDS: CEFEPIME 2,000 MG in SYRINGE 0 ML IV SCH (05:19)
[2021-10-16] MEDS: NORMOSOL-R 1,000 ML IV SCH ×3 (05:24→17:35)
[2021-10-16 06:05] LABS: Basophils # (auto) 0.03 K/uL (0-0.2); Basophils % (auto) 0.4 %; Eosinophils # (auto) 0.66 K/uL (0-0.5); Eosinophils % (auto) 7.9 %; Hematocrit (blood only) 32.6 % (37-47); Hemoglobin 10.8 g/dL (12.0-16.0); Immature Granulocytes # (auto) 0.02 K/uL (0.00-0.02); Immature Granulocytes % (auto) 0.2 %; Lymphocytes # (auto) 1.52 K/uL (1.2-3.4); Lymphocytes % (auto) 18.2 %; Mean Corpuscular Hemoglobin 34.3 pg (25-34); Mean Corpuscular Hgb Conc 33.1 g/dL (32-36); Mean Corpuscular Volume 103.5 fL (80-100); Mean Platelet Volume 9.7 fL (7.4-10.4); Monocytes # (auto) 0.56 K/uL (0.11-0.59); Monocytes % (auto) 6.7 %; Neutrophils # (auto) 5.56 K/uL (1.4-6.5); Neutrophils % (auto) 66.6 %; Platelet Count 195 K/uL (130-400); RDW Coefficient of Variation 14.4 % (11.5-14.5); Red Blood Count 3.15 M/uL (4.2-5.4); White Blood Count 8.35 K/uL (4.8-10.8)
[2021-10-16 06:28] LABS: Bilirubin Direct 0.1 mg/dl (0-0.2); Bilirubin,Total 0.6 mg/dl (0.2-1.0); Calcium 7.3 mg/dl (8.5-10.1); Creatinine Clr Calc Pharmacy 134.3 ml/min; Est GFR (African American) 129.9 ml/min; Est GFR (Non-African American) 112.1 ml/min; Magnesium 2.3 mg/dl (1.7-2.4); Potassium 3.1 mmol/L (3.5-5.1); Total Protein 5.3 gm/dl (6.0-8.3)
[2021-10-16] MEDS: busPIRone 5 MG TAB PO SCH ×2 (09:04→21:13)
[2021-10-16] MEDS: buPROPion XL 150 MG TABCR PO SCH (09:04)
[2021-10-16] MEDS: DICYCLOMINE HCL 20 MG TAB PO SCH ×4 (09:05→21:13)
[2021-10-16] MEDS: GABAPENTIN 400 MG CAP PO SCH ×2 (09:05→21:13)
[2021-10-16] MEDS: HEPARIN SOD 5,000 UNIT/0.5 ML VIAL SQ SCH ×2 (09:06→21:12)
[2021-10-16] MEDS: PANTOprazole 40 MG in SYRINGE 0 ML IV SCH ×2 (09:06→21:58)
[2021-10-16] MEDS: SERTRALINE HCL 50 MG TABLET PO SCH (09:06)
--- NOTE | 2021-10-16 10:44 | Gastroenterology Progress Note ---
Date of Service October 16, 2021 Assessment & Plan (1) Acute pancreatitis: Plan: Etiology is not determined at this time, no signs of biliary obstruction. No obvious stones in the gallbladder, IV fluids based upon her p.o. intake Intermittent IV pain control, Triglycerides and fasting lipid panel to be ordered, follow-up with [facility] as previously scheduled. Please call with any questions or concerns. recall with any questions Admission and Anticipated Discharge Date Admission Date: October 14, 2021 Subjective Feels much better today, tolerating liquids, has taken a shower put on personal clothes. Less pain Physical Exam Physical Exam: PHYSICAL EXAM: General: awake, alert, no apparent distress Head: Normocephalic, atraumatic ENT: PERRL, EOMI, no pharyngeal exudate, mucous membranes dry Neuro: AAO x 3, speech clear and appropriate, strength intact bilaterally 5/5, sensation intact and equal all extremities and dermatomes, no pronator drift Chest: equal rise and fall of the chest, no accessory muscle use, no heaves or thrills, Clear to auscultation, on room air, Cardiac: Regular rate and rhythm, telemetry reviewed, skin warm dry, cap refill <3 seconds, peripheral pulses +2 no JVD, no murmur, no edema GI: Mild epigastric pain, worse with inspiration, non-tender to lower quads, no rebound guarding : Spontaneously voiding, no pain, no CVA tenderness, Extremities: Normal inspection, no peripheral edema or erythema, calfs nontender to palpation Psych: Normal mood and affect Skin: bruises to lower legs and abrasion right hip Results & Data ([facility]) Vital Signs (Past 12 Hours) Vital Signs Temp Pulse Pulse Resp BP Pulse Ox 10/16/21 07:01 36.9 C 70 19 111/70 98 10/16/21 03:52 36.8 C 76 17 101/66 97 10/16/21 00:17 68 10/15/21 23:00 36.9 C 74 19 119/73 98 (1) Acute pancreatitis Acute pancreatitis complication: unspecified Pancreatitis type: other Qualified Code(s): K85.80 - Other acute pancreatitis without necrosis or infection
--- NOTE | 2021-10-16 13:15 | Hospitalist Progress Note ---
Date of Service October 16, 2021 Assessment & Plan (1) Acute pancreatitis: Plan: Acute pancreatitis with ongoing history of N/V diarrhea -Pancreatitis suggested on imaging with CT of the abdomen pelvis. Mild elevation of lipase - pancreatitis not noted on RUQUS performed on 10/05 - new medications not the usual offenders, denies ETOH use - glucose normal, trig panel normal, ionized calcium 1.17 - with distended gallbladder but RUQUS and CT scan from earlier today not normal as well as CBD - MRCP will obtain- bili mild elevation with otherwise normal biliary labs - GI consultation appreciated reinforced supportive care - pain control with Tylenol IV Hydromorphone (2) Nausea & vomiting: Plan: as above - Protonix 40mg IV BID - restart Carfate - EGD from 06/06 notes gastritis (3) NEL (generalized anxiety disorder): Plan: Continue Colonazepam PRN - Continue buspirone and buproprion (4) MDD (major depressive disorder): Plan: As above (5) Cervical radiculopathy: Plan: Continue gabapentin - add tylenol IV (6) Electrolyte abnormality: Plan: Secondary to n/v and decrease PO intake over the past week Replete K Replete mag follow iCA/Calcium levels (7) UTI (urinary tract infection): Plan: Chronic follows with urology for hematuria and left flank pain - 10/05 with E. Coli - stop cefdinir, stop Cefepime (8) Hematuria: Plan: She reports improvement of this but remains with left flank pain reason for cystoscopy has had bleeding workup completed in the past awaiting follow up with hematology noted hysterectomy on CT scan Admission and Anticipated Discharge Date Admission Date: October 14, 2021 Subjective Feels much better today, tolerating liquids, has taken a shower put on personal clothes. Less pain Review of Systems Review of Systems: Mild distress and fatigue no headache, no visual changes no speech or swallowing issues no chest pain, pressure or palpitations no shortness of breath, cough or wheezes Abdominal pain, crampy and left upper quadrant, associated nausea without vomiting no dysuria, hematuria or frequency no focal joint pain or swelling left flank and lower back pain, not defined CVA tenderness no bruising, bleeding or rashes no focal signs of weakness or numbness or altered sensation no complaints of anxiety or depression.. Physical Exam Physical Exam: The patient appeared well nourished and normally developed. She is moderately uncomfortable with pain Vital signs as documented. Head exam is normocephalic atraumatic Neck is without JVD, thyromegaly, or carotid bruits. Lungs are clear to auscultation, no focal loss of breath sounds Cardiac exam, Rhythm is regular.. No murmurs, rubs or gallops. Abdominal exam reveals normal to hyperactive bowel sounds, soft reproducible no objective tenderness Extremities are nonedematous and both pedal pulses are present Neurologic exam is alert and oriented, no focal loss of strength or sensation Skin is without bruises or rashes Psychologically is without concerns for anxiety or depression.. Results & Data Results & Data ([facility]) Vital Signs (Past 12 Hours) Vital Signs Temp Pulse Pulse Resp BP Pulse Ox 10/16/21 11:06 98.8 F 67 20 107/67 97 10/16/21 07:01 98.4 F 70 19 111/70 98 10/16/21 06:15 76 10/16/21 03:52 98.2 F 76 17 101/66 97 PG Care Time/CCT Total # of Minutes Spent Total Time Spent with Patient: Total time spent is greater than 50% in coordination of care (as documented) at patient's floor/unit and/or counseling patient: Coding Level of Care Code 65277 Subseq Hosp Care Lvl 3 Diagnoses Acute pancreatitis K85.80 Acute pancreatitis complication: unspecified Pancreatitis type: other Nausea & vomiting R11.2 Vomiting type: unspecified NEL (generalized anxiety disorder) F41.1 MDD (major depressive disorder) F32.9 Cervical radiculopathy M54.12 Electrolyte abnormality E87.8 UTI (urinary tract infection) N39.0 Hematuria R31.9 (1) Nausea & vomiting Vomiting type: unspecified Qualified Code(s): R11.2 - Nausea with vomiting, unspecified (2) Acute pancreatitis Acute pancreatitis complication: unspecified Pancreatitis type: other Qualified Code(s): K85.80 - Other acute pancreatitis without necrosis or infection
[2021-10-16] MEDS: TAMSULOSIN HCL 0.4 MG CAP PO SCH (21:14)
[2021-10-16] MEDS: PROPRANOLOL HCL LA 80 MG CAPCR PO SCH (21:16)
[2021-10-16] MEDS: HYDROmorphone INJ 1 MG/ML SYRINGE IV PRN (21:58)
--- NOTE | 2021-10-16 22:34 | Electrocardiogram Report ---
Test Reason : Blood Pressure : / mmHG Vent. Rate : 096 BPM Atrial Rate : 096 BPM P-R Int : 142 ms QRS Dur : 082 ms QT Int : 350 ms P-R-T Axes : 072 084 224 degrees QTc Int : 442 ms Poor data quality, interpretation may be adversely affected Normal sinus rhythm Possible Left atrial enlargement Cannot rule out Anterior infarct , age undetermined Abnormal ECG When compared with ECG of 26-JUN-2020 18:36, ST now depressed in Anterolateral leads Nonspecific T wave abnormality now evident in Inferior leads T wave inversion now evident in Anterolateral leads Confirmed by Jimy Arshad ([id number]) on 10/16/2021 10:34:20 PM Referred By: REFERRED SELF Confirmed By:Jimy Arshad
[2021-10-17] MEDS: HYDROmorphone INJ 0.5 MG/0.5 ML SYR IV PRN ×4 (02:03→17:10)
[2021-10-17 05:59] LABS: Basophils # (auto) 0.03 K/uL (0-0.2); Basophils % (auto) 0.4 %; Eosinophils % (auto) 8.9 %; Hematocrit (blood only) 27.4 % (37-47); Hemoglobin 9.2 g/dL (12.0-16.0); Lymphocytes % (auto) 26.6 %; Mean Corpuscular Hemoglobin 34.7 pg (25-34); Mean Corpuscular Hgb Conc 33.6 g/dL (32-36); Mean Corpuscular Volume 103.4 fL (80-100); Mean Platelet Volume 9.7 fL (7.4-10.4); Monocytes # (auto) 0.47 K/uL (0.11-0.59); Monocytes % (auto) 6.9 %; Neutrophils # (auto) 3.87 K/uL (1.4-6.5); Neutrophils % (auto) 57.2 %; Platelet Count 192 K/uL (130-400); RDW Coefficient of Variation 13.8 % (11.5-14.5); RDW Standard Deviation 52.2 fL (36.4-46.3); Red Blood Count 2.65 M/uL (4.2-5.4); White Blood Count 6.77 K/uL (4.8-10.8)
[2021-10-17 06:35] LABS: BUN Creatinine Ratio 9.1 (10-20); Calcium 7.6 mg/dl (8.5-10.1); Creatinine Clr Calc Pharmacy 122.1 ml/min; Est GFR (African American) 125.9 ml/min; Est GFR (Non-African American) 108.6 ml/min; Magnesium 2.1 mg/dl (1.7-2.4); Potassium 2.9 mmol/L (3.5-5.1)
[2021-10-17] MEDS: HYDROmorphone INJ 1 MG/ML SYRINGE IV PRN ×2 (07:21→21:02)
[2021-10-17] MEDS: HEPARIN SOD 5,000 UNIT/0.5 ML VIAL SQ SCH ×2 (08:32→21:01)
[2021-10-17] MEDS: POTASSIUM CHLORIDE CRTAB 20 MEQ TABCR PO SCH ×4 (08:32→21:02)
[2021-10-17] MEDS: busPIRone 5 MG TAB PO SCH ×2 (08:32→21:01)
[2021-10-17] MEDS: GABAPENTIN 400 MG CAP PO SCH ×2 (08:32→21:00)
[2021-10-17] MEDS: SERTRALINE HCL 50 MG TABLET PO SCH (08:32)
[2021-10-17] MEDS: DICYCLOMINE HCL 20 MG TAB PO SCH ×4 (08:32→21:01)
[2021-10-17] MEDS: PANTOprazole 40 MG in SYRINGE 0 ML IV SCH ×2 (08:33→21:01)
[2021-10-17] MEDS: buPROPion XL 150 MG TABCR PO SCH (08:33)
[2021-10-17] MEDS ORDERED: FUROSEMIDE INJ 20 MG/2 ML VIAL IV ONE (17:29)
--- NOTE | 2021-10-17 17:36 | Hospitalist Progress Note ---
Date of Service October 17, 2021 Assessment & Plan (1) Acute pancreatitis: Plan: Acute pancreatitis with ongoing history of N/V diarrhea -Pancreatitis suggested on imaging with CT of the abdomen pelvis. Mild elevation of lipase now resolved - pancreatitis not noted on RUQUS performed on 10/05 - new medications not the usual offenders, denies ETOH use - glucose normal, trig panel normal, ionized calcium 1.17 - with distended gallbladder but RUQUS and CT scan normal as well as CBD - MRCP Pancreatic head/body edema and surrounding fluid are seen compatible with acute pancreatitis. No walled fluid collections are seen. - GI consultation appreciated reinforced supportive care - pain control with Tylenol IV Hydromorphone (2) Nausea & vomiting: Plan: as above - Protonix 40mg IV BID, famotidine bid - restart Carfate - EGD from 06/06 notes gastritis (3) NEL (generalized anxiety disorder): Plan: Continue Colonazepam PRN - Continue buspirone and buproprion (4) MDD (major depressive disorder): Plan: As above (5) Cervical radiculopathy: Plan: Continue gabapentin - add tylenol IV (6) Electrolyte abnormality: Plan: Secondary to n/v and decrease PO intake over the past week Replete K Replete mag follow iCA/Calcium levels (7) UTI (urinary tract infection): Plan: Chronic follows with urology for hematuria and left flank pain - 10/05 with E. Coli - stop cefdinir, stop Cefepime (8) Hematuria: Plan: She reports improvement of this but remains with left flank pain reason for cystoscopy has had bleeding workup completed in the past awaiting follow up with outpt hematology noted hysterectomy on CT scan Admission and Anticipated Discharge Date Admission Date: October 14, 2021 Subjective pt has persistent abdominal pain resolution of biochemical pancreatitis, c/o lower extremity swelling likley due to ivf, Review of Systems Review of Systems: Mild distress and fatigue no headache, no visual changes no speech or swallowing issues no chest pain, pressure or palpitations no shortness of breath, cough or wheezes Abdominal pain, continues, crampy and left upper quadrant, associated nausea without vomiting no dysuria, hematuria or frequency no focal joint pain or swelling left flank and lower back pain, not defined CVA tenderness no bruising, bleeding or rashes no focal signs of weakness or numbness or altered sensation no complaints of anxiety or depression.. Physical Exam Physical Exam: The patient appeared well nourished and normally developed. She is moderately uncomfortable with pain Vital signs as documented. Head exam is normocephalic atraumatic Neck is without JVD, thyromegaly, or carotid bruits. Lungs are clear to auscultation, no focal loss of breath sounds Cardiac exam, Rhythm is regular.. No murmurs, rubs or gallops. Abdominal exam reveals normal to hyperactive bowel sounds, soft reproducible no objective tenderness Extremities are trace edematous and both pedal pulses are present Neurologic exam is alert and oriented, no focal loss of strength or sensation Skin is without bruises or rashes Psychologically is without concerns for anxiety or depression.. Results & Data Results & Data ([facility]) Vital Signs (Past 12 Hours) Vital Signs Temp Pulse Resp BP Pulse Ox 10/17/21 15:42 98.8 F 67 18 143/82 H 96 10/17/21 07:46 99.3 F 70 18 134/81 97 PG Care Time/CCT Total # of Minutes Spent Total Time Spent with Patient: Total time spent is greater than 50% in coordination of care (as documented) at patient's floor/unit and/or counseling patient: Coding Level of Care Code 30065 Subseq Hosp Care Lvl 2 Diagnoses Acute pancreatitis K85.80 Acute pancreatitis complication: unspecified Pancreatitis type: other Nausea & vomiting R11.2 Vomiting type: unspecified NEL (generalized anxiety disorder) F41.1 MDD (major depressive disorder) F32.9 Cervical radiculopathy M54.12 Electrolyte abnormality E87.8 UTI (urinary tract infection) N39.0 Hematuria R31.9 (1) Acute pancreatitis Acute pancreatitis complication: unspecified Pancreatitis type: other Qualified Code(s): K85.80 - Other acute pancreatitis without necrosis or infection (2) Nausea & vomiting Vomiting type: unspecified Qualified Code(s): R11.2 - Nausea with vomiting, unspecified
[2021-10-17] MEDS: PROPRANOLOL HCL LA 80 MG CAPCR PO SCH (21:00)
[2021-10-17] MEDS: TAMSULOSIN HCL 0.4 MG CAP PO SCH (21:01)
[2021-10-18] MEDS: HYDROmorphone INJ 1 MG/ML SYRINGE IV PRN ×4 (01:27→13:34)
[2021-10-18] MEDS: POTASSIUM CHLORIDE CRTAB 20 MEQ TABCR PO SCH (08:55)
[2021-10-18] MEDS: PANTOprazole 40 MG in SYRINGE 0 ML IV SCH (08:56)
[2021-10-18] MEDS: buPROPion XL 150 MG TABCR PO SCH (08:56)
[2021-10-18] MEDS: busPIRone 5 MG TAB PO SCH (08:57)
[2021-10-18] MEDS: GABAPENTIN 400 MG CAP PO SCH (08:58)
[2021-10-18] MEDS: SERTRALINE HCL 50 MG TABLET PO SCH (08:58)
[2021-10-18] MEDS: DICYCLOMINE HCL 20 MG TAB PO SCH (08:58)
[2021-10-18] MEDS: HEPARIN SOD 5,000 UNIT/0.5 ML VIAL SQ SCH (08:58)
[2021-10-18 10:42] LABS: BUN Creatinine Ratio 7.3 (10-20); Calcium 8.7 mg/dl (8.5-10.1); Creatinine Clr Calc Pharmacy 122.1 ml/min; Est GFR (African American) 125.9 ml/min; Est GFR (Non-African American) 108.6 ml/min; Potassium 3.6 mmol/L (3.5-5.1)
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
== END 2021-10-18 15:26 | disposition home or self-care (01) | DRG 439 ==
LOC: ED 11:47 → SUATTDRO 15:21 → 2S 15:21 → 3N 10-16 14:28

== ENCOUNTER 2021-10-24 18:03 | Inpatient (IN) ==
[2021-10-24] MEDS ORDERED: ONDANSETRON INJ 2 MG/ML 2 ML VIAL IV STA (18:12)
[2021-10-24 18:44] LABS: Basophils # (auto) 0.15 K/uL (0-0.2); Basophils % (auto) 2.7 %; Eosinophils # (auto) 0.34 K/uL (0-0.50); Hematocrit (blood only) 38.7 % (34.1-44.9); Hemoglobin 12.7 g/dl (12.0-16.0); Immature Granulocytes # (auto) 0.02 K/uL (0.00-0.02); Immature Granulocytes % (auto) 0.4 %; Lymphocytes % (auto) 37.4 %; Mean Corpuscular Hemoglobin 34.5 pg (25.0-34.0); Mean Corpuscular Hgb Conc 32.8 g/dL (32.0-36.0); Mean Corpuscular Volume 105.2 fL (80.0-100.0); Mean Platelet Volume 8.9 fL (9.4-12.3); Monocytes # (auto) 0.64 K/uL (0.24-0.82); Monocytes % (auto) 11.4 %; Neutrophils # (auto) 2.37 K/uL (1.4-6.5); Neutrophils % (auto) 42.1 %; Platelet Count 690 K/uL (130-400); RDW Coefficient of Variation 13.8 % (11.5-14.5); RDW Standard Deviation 53.1 fL (36.4-46.3); Red Blood Count 3.68 M/uL (3.93-5.22); White Blood Count 5.62 K/ul (4.8-10.8)
[2021-10-24 20:00] LABS: Alanine Aminotransferase 30 U/L (7-52); Albumin Globulin Ratio 1.5 (0.9-2); Albumin Level 4.1 gm/dl (3.4-5.0); Alkaline Phosphatase 141 U/L (34-104); Anion Gap 11 (3-11); BUN Creatinine Ratio 12.5 (10-20); Bilirubin,Total 0.2 mg/dl (0.2-1.0); Blood Urea Nitrogen 9 mg/dl (6-23); Calcium 9.4 mg/dl (8.5-10.1); Carbon Dioxide 22 mmol/L (21-32); Chloride 106 mmol/L (98-107); Est GFR (African American) 112.4 ml/min; Globulin 2.7 gm/dl (2.5-4.0); Glucose 120 mg/dl (70-99(Fasting)); Lipase 106 U/L (11-82); Sodium 139 mmol/L (136-145); Total Protein 6.8 gm/dl (6.0-8.3)
[2021-10-24] MEDS ORDERED: SODIUM CHLORIDE 0.9% 1000ML 1,000 ML IV STA (20:09)
[2021-10-24] MEDS ORDERED: MoRPHine SULFATE 4 MG/ML 1 ML CARP\\VIAL IV STA (20:09)
[2021-10-24] MEDS ORDERED: KETOROLAC 30 MG/ML VIAL IV STA (20:09)
--- NOTE | 2021-10-24 20:14 | Emergency Department Note ---
History of Present Illness General Chief complaint: Abdominal Pain Stated complaint: EXTREME ABDOMINAL PAIN. UNABLE TO STAND Time Seen by Provider: 10/24/21 19:48 History of Present Illness Maximum Pain Intensity: 9 51-year-old female presents to the ED with a chief complaint of right upper quadrant epigastric abdominal pain. Symptoms started yesterday. She states that she had a couple bouts of pain that seem to get better on their own. Today her pain started this afternoon. It has persisted and not gotten better. She had associated nausea and some vomiting today. Her pain is mainly the epigastric area and right upper quadrant. She states this feels similar to previous pancreatitis. The patient was recently admitted and subsequently discharged on October 18 for pancreatitis. Denies alcohol use. The patient states that she has an appoint see Dr. Kendall in about a week or so. Home Medications Medication Instructions Recorded Confirmed Type clonazepam 1 mg tablet 1 mg PO BID PRN 02/10/18 10/14/21 History cyanocobalamin (vitamin B-12) 5,000 mcg SUBLINGUAL QAM 03/10/18 10/14/21 History 2,500 mcg sublingual tablet (Vitamin B-12) nxmzsudtg-zaglqwb-owsgt acid 400 2 tab PO HS 03/10/18 10/14/21 History mg-200 mg-1 mg tablet multivitamin 2 tab PO QAM 03/10/18 10/14/21 History buspirone 10 mg tablet 20 mg PO BID 07/21/18 10/14/21 History acetaminophen 500 mg tablet 1,000 mg PO Q6H PRN 09/19/19 10/14/21 History (Tylenol Extra Strength) bupropion HCl 150 mg 24 hr tablet, 150 mg PO QAM 09/19/19 10/14/21 History extended release (Wellbutrin XL) ibuprofen 200 mg tablet (Advil) 400 - 600 mg PO Q6H PRN 09/19/19 10/14/21 History scobrtntgg-wpjacjwtcjwqc-nhyyenwe 1 - 2 tab PO Q6 PRN 30 Days #9 tab 05/23/20 10/14/21 Rx 50 mg-325 mg-40 mg tablet gabapentin 400 mg capsule 800 mg PO BID 06/26/20 10/14/21 History potassium chloride 20 mEq 20 meq PO BID #14 tab 06/26/20 10/14/21 Rx tablet,extended release(part/cryst) (Klor-Con M) sertraline 50 mg tablet 75 mg PO QAM 06/26/20 10/14/21 History propranolol 80 mg capsule,24 80 mg PO HS 08/05/20 10/14/21 History hr,extended release tamsulosin 0.4 mg capsule 0.4 mg PO HS #30 cap 08/15/20 10/14/21 Rx oxybutynin chloride 5 mg tablet 5 mg PO BID PRN #20 tab 08/17/20 10/14/21 Rx ketorolac 10 mg tablet 10 mg PO BID PRN 5 Days #10 tab 08/18/20 10/14/21 Rx oxycodone-acetaminophen 7.5 mg-325 1 tab PO Q8H PRN #7 tab 09/08/20 10/14/21 Rx mg tablet (Percocet) dicyclomine 20 mg tablet 20 mg PO QID #20 tab 10/05/21 10/14/21 Rx famotidine 20 mg tablet 20 mg PO BID #20 tab 10/05/21 10/14/21 Rx ondansetron 4 mg disintegrating 4 mg PO Q6H PRN #14 tab 10/05/21 10/14/21 Rx tablet sucralfate 100 mg/mL oral 10 ml PO QID #420 ml 10/05/21 10/14/21 Rx suspension (Carafate) pantoprazole 40 mg tablet,delayed 40 mg PO BID 14 Days #28 tab 10/18/21 Rx release furosemide 20 mg tablet (Lasix) 20 mg PO DAILY #3 tab 10/19/21 Rx potassium chloride 10 mEq 20 meq PO DAILY #6 cap 10/19/21 Rx capsule,extended release Allergies Allergy/AdvReac Type Severity Reaction Status Date / Time rizatriptan Allergy Severe Difficulty Verified 10/14/21 15:50 Breathing benzoin Allergy Unknown USED TO Verified 10/14/21 15:50 PUT UNDER STERI STRIPS TO KEEP THEM ON -- BLISTERS tramadol AdvReac Mild N/V Verified 10/14/21 15:50 Past Med/Surg History Medical History Cervical disc herniation (02/18/14) Cervical radiculopathy GOOD ROM PER PT Chronic low back pain Chronic neck pain Disc degeneration, lumbar NEL (generalized anxiety disorder) Hx of migraines MDD (major depressive disorder) Migraine [place] Osteoarthritis Peripheral neuropathy Urge and stress incontinence Urinary retention Surgical History H/O hand surgery repair of hand injury due to a dog bite H/O wrist surgery History of breast biopsy History of cystoscopy History of esophagogastroduodenoscopy (EGD) History of mandibular surgery History of robot-assisted laparoscopic hysterectomy Hx of cystoscopy (~08/15/20) TURBT with stent placement [facility] Hx of lumpectomy LEFT (BENIGN) S/P cervical spinal fusion C4-C5 & C5-C6. TOTAL OF 3 FUSIONS ([employer]). LIMITED RANGE TO LEFT. HAS BEEN INTUBATED SINCE. 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 Firearms Required: No Beliefs That Will Affect Care: None marital status: Current Living Situation: Spouse Current Living Situation Comment: at home Feels Safe at Home: Yes Assistive Devices: None Review of Systems A total of 10 systems reviewed and were otherwise negative Physical Exam Vital Signs Vital Signs - 24 hr 10/24/21 18:10 10/24/21 20:03 Temperature 36.7 C Temperature Source Temporal Artery Scan Pulse Rate 117 H Pulse Rate [Left Finger] 92 H Respiratory Rate 18 17 Respiratory Effort / Characteristics Non-Labored Splinting (from pain) Respiratory Depth Normal Normal Respiratory Pattern Rapid/Shallow Tachypnea Blood Pressure 148/85 H Blood Pressure [Right Arm] 146/70 H Blood Pressure Mean 106 Blood Pressure Mean [Right Arm] 95 Pulse Oximetry 96 98 Oxygen Delivery Method Room Air Room Air Sepsis Recent Fever Within 48 Hours No Sepsis New/Unexplained Change in Mental Status No Sepsis Action Taken by Nursing No Action Required CONSTITUTIONAL/VITAL SIGNS: Reviewed / noted above. GENERAL: Non-toxic in appearance. INTEGUMENTARY: Warm, dry, and [place]. HEAD: Normocephalic. EYES: without scleral icterus or trauma. ENT/OROPHARYNX: clear and moist. LYMPHADENOPATHY/NECK: Is supple without lymphadenopathy or meningismus. RESPIRATORY: Clear to auscultation bilaterally. No increased work of breathing. CARDIOVASCULAR: Regular rate and rhythm. GI/ABDOMEN: Soft and diffusely tender more so in the epigastric and right upper quadrant. No organomegaly or pulsatile mass. EXTREMITIES: Warm and well perfused. BACK: No CVA tenderness. NEUROLOGICAL: Intact without focal deficits. PSYCHIATRIC: normal affect. MUSCULOSKELETAL: Normally developed with good muscle tone. TRIAGE NURSING DOCUMENTATION REVIEWED. Course Administered Medications Discontinued Medications Hydromorphone HCl (Hydromorphone Inj 1 Mg/Ml Syringe) 1 mg IV NOW STA Stop: 10/24/21 21:57 Last Admin: 10/24/21 22:08 Dose: 1 mg Documented by: [id number] Sodium Chloride (Nss 1000ml) 1,000 mls @ 999 mls/hr IV .Q1H1M STA Stop: 10/24/21 21:09 Last Admin: 10/24/21 20:22 Dose: 999 mls/hr Documented by: [id number] Ioversol (Optiray 320 100ml) 94 ml IV ONCE ONE Stop: 10/24/21 20:57 Last Admin: 10/24/21 20:56 Dose: 94 ml Documented by: [id number] Ketorolac Tromethamine (Ketorolac 30 Mg/Ml Vial) 30 mg IV NOW STA Stop: 10/24/21 20:10 Last Admin: 10/24/21 20:21 Dose: 30 mg Documented by: [id number] Morphine Sulfate (Morphine Sulfate 4 Mg/Ml 1 Ml Carp\Vial) 4 mg IV NOW STA Stop: 10/24/21 20:10 Last Admin: 10/24/21 20:22 Dose: 4 mg Documented by: [id number] Ondansetron HCl (Ondansetron Inj 2 Mg/Ml 2 Ml Vial) 4 mg IV NOW STA Stop: 10/24/21 18:13 Last Admin: 10/24/21 18:32 Dose: 4 mg Documented by: [id number] Medical Decision Making Differential Diagnosis Differential considered: pancreatitis, hepatitis, acute cholecystitis, AAA, UTI, pyelonephritis, kidney stones, appendicitis, diverticulitis, shingles, bowel obstruction, mesenteric ischemia, intussusception,hernia, ovarian torsion, ruptured ovarian cyst,ectopic , . Medical Records Attestation: I reviewed the patient's medical records. Home Medications Current Medication List: was personally reviewed by me Laboratory Data Attestation: I reviewed the patient's lab results. Result diagrams: 10/24/21 18:30 10/24/21 20:41 Lab Results 10/24/21 10/24/21 10/24/21 Range/Units 18:30 18:30 20:41 WBC 5.62 (4.8-10.8) K/ul RBC 3.68 L (3.93-5.22) M/uL Hgb 12.7 (12.0-16.0) g/dl Hct 38.7 (34.1-44.9) % MCV 105.2 H (80.0-100.0) fL MCH 34.5 H (25.0-34.0) pg MCHC 32.8 (32.0-36.0) g/dL RDW Std Deviation 53.1 H (36.4-46.3) fL RDW Coeff of Angelique 13.8 (11.5-14.5) % Plt Count 690 H (130-400) K/uL MPV 8.9 L (9.4-12.3) fL Immature Gran % (Auto) 0.4 % Neut % (Auto) 42.1 % Lymph % (Auto) 37.4 % [place] % (Auto) 11.4 % Eos % (Auto) 6.0 % Baso % (Auto) 2.7 % Neut # (Auto) 2.37 (1.4-6.5) K/uL Lymph # (Auto) 2.10 (1.2-3.4) K/uL [place] # (Auto) 0.64 (0.24-0.82) K/uL Eos # (Auto) 0.34 (0-0.50) K/uL Baso # (Auto) 0.15 (0-0.2) K/uL Immature Gran # (Auto) 0.02 (0.00-0.02) K/uL Sodium 139 (136-145) mmol/L Potassium TNP 3.7 Chloride 106 (98-107) mmol/L Carbon Dioxide 22 (21-32) mmol/L Anion Gap 11 (3-11) BUN 9 (6-23) mg/dl Creatinine 0.72 (0.6-1.2) mg/dl Est Cr Clr Drug Dosing Not Reportable Est GFR ( Amer) 112.4 ml/min Est GFR (Non-Af Amer) 97.0 ml/min BUN/Creatinine Ratio 12.5 (10-20) Glucose 120 H (70-99(Fasting)) mg/dl Calcium 9.4 (8.5-10.1) mg/dl Total Bilirubin 0.2 (0.2-1.0) mg/dl AST TNP 24 ALT 30 (7-52) U/L Alkaline Phosphatase 141 H (34-104) U/L Total Protein 6.8 (6.0-8.3) gm/dl Albumin 4.1 (3.4-5.0) gm/dl Globulin 2.7 (2.5-4.0) gm/dl Albumin/Globulin Ratio 1.5 (0.9-2) Lipase 106 H (11-82) U/L SARS-CoV-2, RNA, NAAT (NEGATIVE) 10/24/21 Range/Units 22:33 WBC (4.8-10.8) K/ul RBC (3.93-5.22) M/uL Hgb (12.0-16.0) g/dl Hct (34.1-44.9) % MCV (80.0-100.0) fL MCH (25.0-34.0) pg MCHC (32.0-36.0) g/dL RDW Std Deviation (36.4-46.3) fL RDW Coeff of Angelique (11.5-14.5) % Plt Count (130-400) K/uL MPV (9.4-12.3) fL Immature Gran % (Auto) % Neut % (Auto) % Lymph % (Auto) % [place] % (Auto) % Eos % (Auto) % Baso % (Auto) % Neut # (Auto) (1.4-6.5) K/uL Lymph # (Auto) (1.2-3.4) K/uL [place] # (Auto) (0.24-0.82) K/uL Eos # (Auto) (0-0.50) K/uL Baso # (Auto) (0-0.2) K/uL Immature Gran # (Auto) (0.00-0.02) K/uL Sodium (136-145) mmol/L Potassium Chloride (98-107) mmol/L Carbon Dioxide (21-32) mmol/L Anion Gap (3-11) BUN (6-23) mg/dl Creatinine (0.6-1.2) mg/dl Est Cr Clr Drug Dosing Est GFR ( Amer) ml/min Est GFR (Non-Af Amer) ml/min BUN/Creatinine Ratio (10-20) Glucose (70-99(Fasting)) mg/dl Calcium (8.5-10.1) mg/dl Total Bilirubin (0.2-1.0) mg/dl AST ALT (7-52) U/L Alkaline Phosphatase (34-104) U/L Total Protein (6.0-8.3) gm/dl Albumin (3.4-5.0) gm/dl Globulin (2.5-4.0) gm/dl Albumin/Globulin Ratio (0.9-2) Lipase (11-82) U/L SARS-CoV-2, RNA, NAAT NEGATIVE (NEGATIVE) Imaging Data Radiologist's Impression: CT scan of the abdomen pelvis with IV contrast: Per the radiologist there are dilated loops of small bowel in the mid abdomen and these are fluid-filled. There is also a new swirling appearance which was not present on a CT scan from 5 days ago. This is concerning for a volvulus. MDM Narrative 51-year-old female with acute epigastric and right upper quadrant abdominal pain that started this afternoon. Associated nausea vomiting. History of pancreatitis in the recent past. Still has gallbladder. Exam reveals tenderness in the epigastric and right upper quadrant. Vital signs stable. Tac hycardia initially. The patient CBC was unremarkable. Chemistry panel was also unremarkable. Lipase was mildly elevated at 106. COVID test was negative. CT scan of the abdomen pelvis did shows some findings of dilated fluid-filled loops of small bowel with possibly some swirling suggesting volvulus. NG tube was ordered. The patient was treated here with some IV fluids as well as IV Zofran and IV morphine, IV Toradol and IV Dilaudid. I did consult with Dr. Wood who recommends the NG tube and hydration and pain management. He was consulted. I also consulted with medicine for further evaluation and care and admission. Impression & Plan Volvulus of small intestine, Abdominal pain, Vomiting Discharge Plan Visit Data Chief Complaint: Abdominal Pain Stated Complaint: EXTREME ABDOMINAL PAIN. UNABLE TO STAND ED Provider: [employer] Discharge Problem: Volvulus of small intestine, Abdominal pain, Vomiting Patient Disposition: Being Evaluated by Hospitalist Forms Stand Alone Forms: My [facility] Prescriptions Prescriptions: No Action qmwphyyvad-zikaxskocfvdp-epgd 50-325-40 mg tablet 1 - 2 tab PO Q6 PRN (Reason: Headache) 30 Days Qty: 9 RF: 1 oxybutynin chloride 5 mg tablet 5 mg PO BID PRN (Reason: bladder spasms) Qty: 20 RF: 1 ketorolac 10 mg tablet 10 mg PO BID PRN (Reason: pain) 5 Days Qty: 10 RF: 0 oxycodone-acetaminophen [Percocet] 7.5-325 mg tablet 1 tab PO Q8H PRN (Reason: pain) Qty: 7 RF: 0 clonazepam 1 mg tablet 1 mg PO BID PRN (Reason: Anxiety) RF: 0 multivitamin Tablet 2 tab PO QAM RF: 0 cyanocobalamin (vitamin B-12) [Vitamin B-12] 2,500 mcg Tablet, Sublingual 5,000 mcg SUBLINGUAL QAM RF: 0 qllhwnokq-nocxldh-sdxjn acid 400-200-1 mg Tablet 2 tab PO HS RF: 0 buspirone 10 mg Tablet 20 mg PO BID RF: 0 bupropion HCl [Wellbutrin XL] 150 mg tablet extended release 24 hr 150 mg PO QAM RF: 0 acetaminophen [Tylenol Extra Strength] 500 mg Tablet 1,000 mg PO Q6H PRN (Reason: Pain) RF: 0 ibuprofen [Advil] 200 mg Tablet 400 - 600 mg PO Q6H PRN (Reason: rapp/pain) RF: 0 propranolol 80 mg capsule,extended release 24 hr 80 mg PO HS RF: 0 tamsulosin 0.4 mg capsule 0.4 mg PO HS Qty: 30 RF: 0 sucralfate [Carafate] 100 mg/mL suspension 10 ml PO QID Qty: 420 RF: 0 famotidine 20 mg tablet 20 mg PO BID Qty: 20 RF: 0 dicyclomine 20 mg tablet 20 mg PO QID Qty: 20 RF: 0 ondansetron 4 mg tablet,disintegrating 4 mg PO Q6H PRN (Reason: nausea and vomiting) Qty: 14 RF: 0 pantoprazole 40 mg tablet,delayed release (DR/EC) 40 mg PO BID 14 Days Qty: 28 RF: 0 furosemide [Lasix] 20 mg tablet 20 mg PO DAILY Qty: 3 RF: 0 potassium chloride 10 mEq capsule, extended release 20 meq PO DAILY Qty: 6 RF: 0 gabapentin 400 mg capsule 800 mg PO BID RF: 0 sertraline 50 mg tablet 75 mg PO QAM RF: 0 potassium chloride [Klor-Con M20] 20 mEq tablet,ER particles/crystals 20 meq PO BID Qty: 14 RF: 0 Referrals Referrals: Leora Byrne CRNP [Primary Care Provider] -
[2021-10-24] MEDS ORDERED: OPTIRAY 320 100ml IV ONE (20:56)
[2021-10-24 21:22] LABS: Potassium 3.7 mmol/L (3.5-5.1)
[2021-10-24] MEDS ORDERED: HYDROmorphone INJ 1 MG/ML SYRINGE IV STA (21:56)
[2021-10-25] MEDS ORDERED: LORazepam 0.5 MG in SYRINGE 0.25 ML IV STA (00:09)
[2021-10-25] MEDS ORDERED: LORazepam 2 MG/1 ML VIAL IV STA (00:09)
--- NOTE | 2021-10-25 01:41 | History & Physical Report ---
Date of Service October 25, 2021 The patient was seen and admitted October 24, 2021 Assessment & Plan (1) Volvulus of small intestine: Plan: Volvulus of small bowel/enteritis/abdominal pain/nausea and vomiting- NG tube to low to intermittent suction NPO Famotidine 20 mg IV every 12 hours Lactated Ringer's at 80 mils per hour Zofran 4 mg IV every 6 hours as needed Acetaminophen 1 g IV every 8 hours as needed mild pain or fever Toradol 15 mg IV every 6 hours as needed moderate pain Patient did have MRCP on 10/14/2021 which showed pancreatic head and body edema, with no signs of stones or obstruction General surgery consult (2) Enteritis: Plan: See above (3) Acute pancreatitis: Plan: Was admitted from 10/14-10/18/2021 for pancreatitis No notation the pancreatic head or body edema on today's CT (4) Urge and stress incontinence: Plan: Resume her usual medications when NG tube is removed (5) MDD (major depressive disorder): Plan: Resume usual medications with NG tube removed (6) NEL (generalized anxiety disorder): Plan: Placed on lorazepam 0.5 mg IV every 6 hours as needed (7) Urinary retention: Plan: Follow urine output following IV fluids (8) Nausea & vomiting: Plan: Zofran IV as noted above Admission and Anticipated Discharge Date Admission Date: October 24, 2021 History of Present Illness Chief Complaint: The patient presents to the emergency department with complaint of epigastric and right upper quadrant abdominal pain over the past 24 hours, with nausea and vomiting, that she says is not uncommon for her. Primary Care Provider: ARGELIA Vanegas The patient is a 51-year-old female most recently admitted to [facility] from 10/14-10/18/2021 where she was treated for acute pancreatitis, gastritis, NEL, MDD, hypokalemia, hypomagnesemia. She reports that she commonly has nausea and vomiting, however, she has developed significant epigastric and right upper quadrant abdominal pain which has been postrecovery the ED for assessment. CT scan of abdomen pelvis showed dilated small bowel loops that were fluid- filled, with concerns regarding possible volvulus. Gallbladder ultrasound showed fatty liver, with common bile duct dilatation 1.1 cm. Patient did have NG tube placed to low intermittent suction while in ED. From the ED she also received the following: Zofran 4 mg IV, normal saline 1 L, morphine sulfate 4 mg IV, Toradol 30 mg IV and Dilaudid 1 mg IV. Allergies Allergy/AdvReac Type Severity Reaction Status Date / Time rizatriptan Allergy Severe Difficulty Verified 10/25/21 00:43 Breathing benzoin Allergy Unknown USED TO Verified 10/25/21 00:43 PUT UNDER STERI STRIPS TO KEEP THEM ON -- BLISTERS tramadol AdvReac Mild N/V Verified 10/25/21 00:43 Home Medications Medication Instructions Recorded Confirmed Type clonazepam 1 mg tablet 1 mg PO BID PRN 02/10/18 10/14/21 History buspirone 10 mg tablet 20 mg PO BID 07/21/18 10/14/21 History acetaminophen 500 mg tablet 1,000 mg PO Q6H PRN 09/19/19 10/14/21 History (Tylenol Extra Strength) bupropion HCl 150 mg 24 hr tablet, 150 mg PO QAM 09/19/19 10/14/21 History extended release (Wellbutrin XL) ibuprofen 200 mg tablet (Advil) 400 - 600 mg PO Q6H PRN 09/19/19 10/14/21 History gabapentin 400 mg capsule 800 mg PO BID 06/26/20 10/14/21 History sertraline 50 mg tablet 75 mg PO QAM 06/26/20 10/14/21 History oxycodone-acetaminophen 7.5 mg-325 1 tab PO Q8H PRN #7 tab 09/08/20 10/14/21 Rx mg tablet (Percocet) ondansetron 4 mg disintegrating 4 mg PO Q6H PRN #14 tab 10/05/21 10/14/21 Rx tablet pantoprazole 40 mg tablet,delayed 40 mg PO BID 14 Days #28 tab 10/18/21 Rx release Past Med/Surg History Medical History Cervical disc herniation (02/18/14) Cervical radiculopathy GOOD ROM PER PT Chronic low back pain Chronic neck pain Disc degeneration, lumbar NEL (generalized anxiety disorder) Hx of migraines MDD (major depressive disorder) Migraine [place] Osteoarthritis Peripheral neuropathy Urge and stress incontinence Urinary retention Surgical History H/O hand surgery repair of hand injury due to a dog bite H/O wrist surgery History of breast biopsy History of cystoscopy History of esophagogastroduodenoscopy (EGD) History of mandibular surgery History of robot-assisted laparoscopic hysterectomy Hx of cystoscopy (~08/15/20) TURBT with stent placement [facility], [place] Hx of lumpectomy LEFT (BENIGN) S/P cervical spinal fusion C4-C5 & C5-C6. TOTAL OF 3 FUSIONS (Jaco Solarsi). LIMITED RANGE TO LEFT. HAS BEEN INTUBATED SINCE. Cervical Arthroplasty C4-C5 02/18/14: MAC #3, ETT #7.0, Grade 1 View, Smooth intubation on 1st attempt S/P hardware removal CERVICAL S/P ureteral stent placement Family History Father Cardiac disorder Malignant neoplasm of colon Prostate cancer Colorectal cancer Aunt Breast cancer Denies family history of Ovarian cancer Social History Smoking Status: Never smoker Second Hand Exposure: No; Hx Alcohol Use: Yes Alcohol type: beer, wine and hard liquor Hx Substance Use: No Preferred Language: Arabic Communication Ability: Effective Visual Impairment: No Limitations Computer Field Technician Required: No Beliefs That Will Affect Care: None marital status: Current Living Situation: Spouse Current Living Situation Comment: at home Feels Safe at Home: Yes Assistive Devices: None Review of Systems Review of Systems: The patient denies chest pain, palpitations, shortness of breath, dyspnea on exertion, cough, lower extremity swelling, sore throat, fevers, chills, sweats, blood in urine or stool, dysuria, urinary frequency or urgency, lightheadedness, dizziness, headache, memory loss, loss of consciousness, rash, abnormal bruising or bleeding, imbalance, focal or generalized weakness, numbness or tingling in arms or legs, generalized arthralgias or myalgias, back or neck pain, or night sweats. The review of systems is otherwise negative other than for that already noted above, and at least 10 systems have been reviewed. Physical Exam Physical Exam: The patient is awake, alert and oriented 3, well developed and well nourished, normocephalic and atraumatic, lying in bed and in no acute distress. HEENT--PERRL, EOMI, mucous membranes and oropharynx dry. Neck--supple. No JVD. No bruits. Thyroid normal, trachea midline, no adenopathy. Heart--normal S1 and S2. No murmurs, rubs or gallops. Lungs--clear bilaterally, no respiratory distress, no accessory muscle use. Abdomen--decreased bowel sounds and soft. Generalized tenderness. Mildly distended Extremities--no cyanosis or clubbing. No edema. Dermatologic--normal skin turgor, normal color, no abnormal lymph nodes, no rash. Neurologic--cranial nerves II through XII grossly intact. Rheumatologic--normal range of motion. Psychiatric--normal affect. Results & Data Results & Data ([facility]) Vital Signs (Past 12 Hours) Vital Signs Temp Pulse Pulse Resp BP BP Pulse Ox 10/24/21 23:22 83 18 171/83 H 98 10/24/21 20:03 92 H 17 146/70 H 98 10/24/21 18:10 36.7 C 117 H 18 148/85 H 96 Laboratory Results Laboratory Results WBC 5.62 K/ul (4.8-10.8) 10/24/21 18:30 RBC 3.68 M/uL (3.93-5.22) L 10/24/21 18:30 Hgb 12.7 g/dl (12.0-16.0) 10/24/21 18:30 Hct 38.7 % (34.1-44.9) 10/24/21 18:30 MCV 105.2 fL (80.0-100.0) H 10/24/21 18:30 MCH 34.5 pg (25.0-34.0) H 10/24/21 18:30 MCHC 32.8 g/dL (32.0-36.0) 10/24/21 18:30 RDW Std Deviation 53.1 fL (36.4-46.3) H 10/24/21 18:30 RDW Coeff of Angelique 13.8 % (11.5-14.5) 10/24/21 18:30 Plt Count 690 K/uL (130-400) H 10/24/21 18:30 MPV 8.9 fL (9.4-12.3) L 10/24/21 18:30 Immature Gran % (Auto) 0.4 % 10/24/21 18:30 Neut % (Auto) 42.1 % 10/24/21 18:30 Lymph % (Auto) 37.4 % 10/24/21 18:30 Clark % (Auto) 11.4 % 10/24/21 18:30 Eos % (Auto) 6.0 % 10/24/21 18:30 Baso % (Auto) 2.7 % 10/24/21 18:30 Neut # (Auto) 2.37 K/uL (1.4-6.5) 10/24/21 18:30 Lymph # (Auto) 2.10 K/uL (1.2-3.4) 10/24/21 18:30 Clark # (Auto) 0.64 K/uL (0.24-0.82) 10/24/21 18:30 Eos # (Auto) 0.34 K/uL (0-0.50) 10/24/21 18:30 Baso # (Auto) 0.15 K/uL (0-0.2) 10/24/21 18:30 Immature Gran # (Auto) 0.02 K/uL (0.00-0.02) 10/24/21 18:30 Sodium 139 mmol/L (136-145) 10/24/21 18:30 Potassium 3.7 mmol/L (3.5-5.1) 10/24/21 20:41 Chloride 106 mmol/L (98-107) 10/24/21 18:30 Carbon Dioxide 22 mmol/L (21-32) 10/24/21 18:30 Anion Gap 11 (3-11) 10/24/21 18:30 BUN 9 mg/dl (6-23) 10/24/21 18:30 Creatinine 0.72 mg/dl (0.6-1.2) 10/24/21 18:30 Est Cr Clr Drug Dosing Not Reportable 10/24/21 18:30 Est GFR ( Amer) 112.4 ml/min 10/24/21 18:30 Est GFR (Non-Af Amer) 97.0 ml/min 10/24/21 18:30 BUN/Creatinine Ratio 12.5 (10-20) 10/24/21 18:30 Glucose 120 mg/dl (70-99(Fasting)) H 10/24/21 18:30 Calcium 9.4 mg/dl (8.5-10.1) 10/24/21 18:30 Total Bilirubin 0.2 mg/dl (0.2-1.0) 10/24/21 18:30 AST 24 U/L (13-39) 10/24/21 20:41 ALT 30 U/L (7-52) 10/24/21 18:30 Alkaline Phosphatase 141 U/L (34-104) H 10/24/21 18:30 Total Protein 6.8 gm/dl (6.0-8.3) 10/24/21 18:30 Albumin 4.1 gm/dl (3.4-5.0) 10/24/21 18:30 Globulin 2.7 gm/dl (2.5-4.0) 10/24/21 18:30 Albumin/Globulin Ratio 1.5 (0.9-2) 10/24/21 18:30 Lipase 106 U/L (11-82) H 10/24/21 18:30 SARS-CoV-2, RNA, NAAT NEGATIVE (NEGATIVE) 10/24/21 22:33 Diagnostic Findings [facility] Patient: LIBERTAD MCMAHON V (Female) : 70 Status: ER Date: 10/24/21 21:58 Room #: History: Severe RUQ pain Slices: 61 Priors: Tech: Anila Patricio @ [phone] Exams: US GALLBLADDER Contrast: Accession Numbers: [id number] Referring Physician: REFERRED SELF Preliminary Findings Only See Final Report For Complete Findings US GALLBLADDER: Fatty infiltration of the liver. There is dilation measuring 1.1 cm of the common bile duct without filling defect. Consider further evaluation with MRCP or ERCP. No cholelithiasis or evidence of acute cholecystitis. Radiologist: Aaliyah Ceja MD Study ready at 22:00 and initial results transmitted at 22:26 *This report constitutes a preliminary interpretation only. Non-acute findings felt to be unrelated to the clinical presentation may not be discussed in this report. The study will be interpreted and a final report will be generated by the local Radiologist the following shift. To reach the [facility] radiology department call [phone]. If a discrepancy is found between the preliminary and final interpretations of this study, please notify us via our Client Portal at [email or web address], under QA Exams. You can also fax this report with a description of the discrepancy, or include the final report, to our daytime fax number [phone]. If faxing, please indicate the severity of discrepancy using one of the following categories: [ ] 1 - Agree/Informational [ ] 2 - Unlikely to Affect Management [ ] 3 - Possible Eventual Change of Management [ ] 4 - Probable Immediate Change of Management For all other patient related information, please fax us at [phone]. [id number] [facility] Patient: LIBERTAD MCMAHON V (Female) : 70 Status: ER Date: 10/24/21 21:05 Room #: History: epig & ruq abd pain, 94 ml optiray, has appendix Slices: 694 Priors: Tech: Fabricio Salgado @ [phone] Exams: CT ABDOMEN & PELVIS With Contrast Contrast: IV Amt: 94 ml optiray Accession Numbers: [id number] Referring Physician: REFERRED SELF Preliminary Findings Only See Final Report For Complete Findings CT ABDOMEN & PELVIS With Contrast: Dilated loops of small bowel in the midabdomen are fluid-filled. These now demonstrate a swirling appearance which was not present on the prior CT abdomen and pelvis performed on 10/14/2021. This is concerning for volvulus. Question mild right hydronephrosis. The remaining solid organs are within normal limits. Normal appendix. No fracture. Radiologist: Aaliyah Ceja MD Study ready at 21:15 and initial results transmitted at 21:50 Communications: Clear Time Type Notes 10/24/21 21:52 Call Doctor Regarding Abo ve results, called Dr. Smart on 10/24 21:52 (-04:00) *This report constitutes a preliminary interpretation only. Non-acute findings felt to be unrelated to the clinical presentation may not be discussed in this report. The study will be interpreted and a final report will be generated by the local Radiologist the following shift. To reach the [facility] radiology department call [phone]. If a discrepancy is found between the preliminary and final interpretations of this study, please notify us via our Client Portal at [email or web address], under QA Exams. You can also fax this report with a description of the discrepancy, or include the final report, to our daytime fax number [phone]. If faxing, please indicate the severity of discrepancy using one of the following categories: [ ] 1 - Agree/Informational [ ] 2 - Unlikely to Affect Management [ ] 3 - Possible Eventual Change of Management [ ] 4 - Probable Immediate Change of Management For all other patient related information, please fax us at [phone]. [id number] Code Status & VTE Plan Code Status Full code VTE Prophylaxis Plan VTE Prophylaxis will be ordered: Yes PG Care Time/CCT Total # of Minutes Spent Total Time Spent with Patient: Total time spent is greater than 50% in coordination of care (as documented) at patient's floor/unit and/or counseling patient: Coding Level of Care Code 74879 Initial Inpt Care Lvl 3 Diagnoses Enteritis K52.9 Volvulus of small intestine K56.2 Acute pancreatitis K85.80 Acute pancreatitis complication: unspecified Pancreatitis type: other Urge and stress incontinence N39.46 MDD (major depressive disorder) F32.9 NEL (generalized anxiety disorder) F41.1 Urinary retention R33.9 Nausea & vomiting R11.2 Vomiting type: unspecified (1) Acute pancreatitis Acute pancreatitis complication: unspecified Pancreatitis type: other Qualified Code(s): K85.80 - Other acute pancreatitis without necrosis or infection (2) Nausea & vomiting Vomiting type: unspecified Qualified Code(s): R11.2 - Nausea with vomiting, unspecified
[2021-10-25] MEDS: LACTATED RINGER'S 1,000 ML IV SCH ×3 (01:49→14:41)
[2021-10-25] MEDS: ONDANSETRON INJ 2 MG/ML 2 ML VIAL IV PRN ×2 (01:54→18:15)
[2021-10-25] MEDS: ACETAMINOPHEN 1,000 MG/100 ML VIAL IV PRN ×2 (01:54→16:47)
[2021-10-25] MEDS ORDERED: LORazepam 2 MG/1 ML VIAL IV SCH (02:00)
[2021-10-25] MEDS: FAMOTIDINE 20 MG in SYRINGE 3 ML IV SCH ×2 (02:02→14:39)
[2021-10-25] MEDS: KETOROLAC TROMETHAMINE 15 MG/ML VIAL IV PRN ×2 (02:56→23:53)
[2021-10-25] MEDS: LORazepam 0.5 MG in SYRINGE 0.25 ML IV SCH ×4 (06:18→23:53)
--- NOTE | 2021-10-25 07:11 | Ultrasound Report ---
ULTRASOUND RIGHT UPPER QUADRANT ABDOMEN CLINICAL HISTORY: Right upper quadrant abdominal pain. COMPARISON STUDY: Abdominal CT dated 10/24/2021. MRCP dated 10/14/2021. Abdominal ultrasound dated 2021. TECHNIQUE: Real-time, grayscale, and color flow sonography of the right upper quadrant of the abdomen was performed. Images are reviewed in the transverse and longitudinal planes. FINDINGS: Liver: The liver is normal in size and echotexture. There is no intrahepatic biliary ductal dilatatio n. The main portal vein is patent. Gallbladder: The gallbladder is distended but otherwise normal in appearance. No shadowing gallstones are identified. There is no gallbladder wall thickening or pericholecystic fluid. A sonographic Murp hy's sign is reportedly absent. The common bile duct is dilated, measuring up to 1.1 cm in diameter. Pancreas: Visualized portions of the pancreatic head and body are normal in appearance. The splenic v ein is patent. Right kidney: Survey images of the right kidney demonstrate normal size and echotexture. There is no hydronephrosis. Ascites: None. IMPRESSION: 1. The gallbladder is distended, with no shadowing gallstones identified and no sonographic evidence of acute cholecystitis. 2. Dilatation of the common bile duct is nonspecific but has increased from the 10/05/2021 examination . If there is clinical concern for choledocholithiasis a repeat MRCP could be obtained. ACT 112: Negative or not required by law. Electronically signed by: Eliud Marcano M.D. 10/25/2021 7:09 AM
[2021-10-25] MEDS: HYDROmorphone INJ 0.5 MG/0.5 ML SYR IV PRN ×4 (07:39→22:13)
--- NOTE | 2021-10-25 08:17 | XRay Report ---
XR KUB/Abdomen 1 view CLINICAL HISTORY: NG tube placement. COMPARISON STUDY: No previous studies for comparison. TECHNIQUE: Single view of the abdomen. FINDINGS: The bowel gas pattern is within normal limits without evidence for dilatation or obstruction. Tip of the NG tube is in the upper body of the stomach. There is no evidence for organomegaly or gross intra -abdominal mass. No abnormal calcifications are seen along the course of the urinary tracts bilateral ly. No acute osseous pathology. IMPRESSION: 1. No acute intra-abdominal abnormality. 2. Tip of NG tube in the upper body of the stomach. ACT 112: Negative or not required by law. Electronically signed by: Alejandro Bowman M.D. 10/25/2021 8:16 AM
[2021-10-25 08:18] LABS: Basophils # (auto) 0.09 K/uL (0-0.2); Basophils % (auto) 1.3 %; Eosinophils % (auto) 1.5 %; Hematocrit (blood only) 36.5 % (34.1-44.9); Hemoglobin 12.3 g/dl (12.0-16.0); Immature Granulocytes # (auto) 0.01 K/uL (0.00-0.02); Immature Granulocytes % (auto) 0.1 %; Lymphocytes # (auto) 0.98 K/uL (1.2-3.4); Lymphocytes % (auto) 14.7 %; Mean Corpuscular Hemoglobin 34.6 pg (25.0-34.0); Mean Corpuscular Hgb Conc 33.7 g/dL (32.0-36.0); Mean Corpuscular Volume 102.8 fL (80.0-100.0); Mean Platelet Volume 8.8 fL (9.4-12.3); Monocytes # (auto) 0.63 K/uL (0.24-0.82); Monocytes % (auto) 9.4 %; Neutrophils # (auto) 4.86 K/uL (1.4-6.5); Platelet Count 645 K/uL (130-400); RDW Coefficient of Variation 13.7 % (11.5-14.5); RDW Standard Deviation 52.2 fL (36.4-46.3); Red Blood Count 3.55 M/uL (3.93-5.22); White Blood Count 6.67 K/ul (4.8-10.8)
--- NOTE | 2021-10-25 08:36 | CT Scan Report ---
CT SCAN OF THE ABDOMEN AND PELVIS WITH IV CONTRAST CLINICAL HISTORY: Epigastric and right upper quadrant abdominal pain. COMPARISON STUDY: Abdominal CT dated 10/14/2021. TECHNIQUE: Following the IV administration of 94 cc of Optiray 320, CT scan of the abdomen and pelvi s is performed from the lung bases to the proximal femora. Images are reviewed in the axial, sagittal , and coronal planes. IV contrast was administered without complication. A dose lowering technique wa s utilized adhering to the principles of ALARA. CT DOSE: 317.03 mGy.cm FINDINGS: Lung bases: The heart is normal in size and without pericardial effusion. The lung bases are clear. Liver: The contrast-enhanced liver is normal in size, contour, and attenuation. There is mild intrahe patic biliary ductal dilatation. The hepatic veins and portal veins are patent. Gallbladder: The gallbladder is distended but otherwise normal in appearance. Spleen: Normal in size and attenuation. Pancreas: There is minimal infiltration around the pancreas, likely representing resolving pancreatit is. The gland enhances throughout. The duct is normal in caliber and there is no peripancreatic fluid collection. The splenic vein is patent. Adrenal glands: Unremarkable. Kidneys: The contrast enhanced kidneys are normal in size and without hydronephrosis. There is mild f ullness of the right renal collecting system. The kidneys enhance symmetrically. Abdominal vasculature: The abdominal aorta is normal in course and caliber. 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 Bowel: There are focally dilated and fluid-filled loops of small bowel in the midabdomen which measur e up to 3 cm in diameter. A transition point is seen on image #212 and there is associated swirling o f the mesentery. There may be more proximal transition point on image #187, and a closed loop type ob struction is not excluded. There is mild mesenteric edema and trace interloop fluid. No pneumatosis i ntestinalis or portal venous gas is seen. No focally thick walled bowel loops are identified. There i s moderate colonic fecal retention. The appendix is well-visualized and normal. Peritoneum: There is no intraperitoneal free air or abdominal ascites. Lymphadenopathy: None. Pelvic viscera: The bladder is normal as visualized. The uterus is surgically absent. No adnexal lesi on is seen. Skeletal structures: No lytic or blastic lesions are seen. IMPRESSION: 1. Findings are consistent with a small bowel obstruction. A closed loop type obstruction is not excl uded and surgical consultation is advised. 2. There is mild mesenteric edema and trace interloop fluid. 3. There is no intraperitoneal free. No pneumatosis intestinalis or portal venous gas is seen and the re are no focally thick walled bowel loops identified. 4. Mild intrahepatic biliary ductal dilatation appears increased from 10/14/2021. 5. Peripancreatic infiltration has almost completely resolved as compared to 10/14/2021. This likely re presents resolving pancreatitis. The gland enhances throughout with no peripancreatic fluid collectio n identified. 6. Additional findings as above. ACT 112: Negative or not required by law. Electronically signed by: Eliud Marcano M.D. 10/25/2021 8:34 AM
[2021-10-25 08:49] LABS: Albumin Globulin Ratio 1.5 (0.9-2); Albumin Level 3.7 gm/dl (3.4-5.0); BUN Creatinine Ratio 17.9 (10-20); Bilirubin,Total 0.3 mg/dl (0.2-1.0); Calcium 8.7 mg/dl (8.5-10.1); Creatinine Clr Calc Pharmacy 103.8 ml/min; Est GFR (Non-African American) 101.8 ml/min; Globulin 2.4 gm/dl (2.5-4.0); Magnesium 2.1 mg/dl (1.7-2.4); Potassium 3.8 mmol/L (3.5-5.1); Total Protein 6.1 gm/dl (6.0-8.3)
--- NOTE | 2021-10-25 09:19 | Anesthesiology Consultation ---
Date of Service October 25, 2021 Assessment & Plan (1) Encounter for pre-operative examination: Chart Review Chart Review: Acceptable Risk for Surgery and Patient NOT seen in Pre Admission Testing Consults Requested none History Surgery Operation Date: 10/25/21 08:20 Proposed Procedures p Laparoscopy Release of Small Bowel Obstruction, - Sukumar Wood, s Laparoscopic Cholecystectomy, Possible Open - Sukumar Wood, Height/Weight Height: 5 ft 9 in Weight: 68.7 kg Allergies Allergy/AdvReac Type Severity Reaction Status Date / Time rizatriptan Allergy Severe Difficulty Verified 10/25/21 00:43 Breathing benzoin Allergy Unknown USED TO Verified 10/25/21 00:43 PUT UNDER STERI STRIPS TO KEEP THEM ON -- BLISTERS tramadol AdvReac Mild N/V Verified 10/25/21 00:43 Medications Home Medications Medication Instructions Recorded Confirmed Last Taken clonazepam 1 mg tablet 1 mg PO BID PRN Anxiety 02/10/18 10/25/21 09/07/20 08:00 buspirone 10 mg tablet 20 mg PO BID 07/21/18 10/25/21 09/07/20 23:00 acetaminophen 500 mg tablet 1,000 mg PO Q6H PRN Pain 09/19/19 10/25/21 09/07/20 23:00 (Tylenol Extra Strength) bupropion HCl 150 mg 24 hr tablet, 150 mg PO QAM 09/19/19 10/25/21 09/07/20 08:00 extended release (Wellbutrin XL) ibuprofen 200 mg tablet (Advil) 400 - 600 mg PO Q6H PRN rapp/pain 09/19/19 10/25/21 09/07/20 08:00 gabapentin 400 mg capsule 800 mg PO BID 06/26/20 10/25/21 09/07/20 23:00 sertraline 50 mg tablet 75 mg PO QAM 06/26/20 10/25/21 09/07/20 08:00 oxycodone-acetaminophen 7.5 mg-325 1 tab PO Q8H PRN pain #7 tabs 09/08/20 10/25/21 Unknown mg tablet (Percocet) ondansetron 4 mg disintegrating 4 mg PO Q6H PRN nausea and 10/05/21 10/25/21 Unknown tablet vomiting #14 tabs pantoprazole 40 mg tablet,delayed 40 mg PO BID 14 days #28 tabs 10/18/21 10/25/21 Unknown release Active Medications Generic Name Dose Route Start Last Admin Trade Name Debo PRN Reason Stop Dose Admin Hydromorphone HCl 0.5 mg 10/25/21 06:50 10/25/21 07:39 Hydromorphone Inj 0.5 Mg/0.5 Ml Syr IV 11/08/21 06:49 0.5 mg Q6H PRN Administration Severe Pain Lactated Ringer's 1,000 mls @ 80 mls/hr 10/24/21 23:45 10/25/21 01:49 Lr IV 11/23/21 23:44 80 mls/hr .[id number] MARYLIN Administration Acetaminophen 1,000 mg in 100 mls @ 400 mls/hr 10/25/21 00:04 10/25/21 02:09 Ofirmev IV 10/28/21 00:03 Infused Q8H PRN Infusion Pain or Fever Famotidine 20 mg/ Syringe 5 mls @ 2.5 mls/min 10/25/21 02:00 10/25/21 02:02 IV 11/24/21 01:59 2.5 mls/min Q12H MARYLIN Administration Lorazepam 0.5 mg/ Syringe 0.5 mls @ 2 mls/min 10/25/21 06:00 10/25/21 06:18 IV 11/24/21 05:59 2 mls/min Q6H MARYLIN Administration Ketorolac Tromethamine 15 mg 10/24/21 23:49 10/25/21 02:56 Ketorolac Tromethamine 15 Mg/Ml Vial IV 10/29/21 23:48 15 mg Q6H PRN Administration Moderate Pain Ondansetron HCl 4 mg 10/25/21 01:39 10/25/21 01:54 Ondansetron Inj 2 Mg/Ml 2 Ml Vial IV 11/24/21 01:38 4 mg Q6H PRN Administration Nausea Past Medical History Medical History Cervical disc herniation (02/18/14) Cervical radiculopathy GOOD ROM PER PT Chronic low back pain Chronic neck pain Disc degeneration, lumbar NEL (generalized anxiety disorder) Hx of migraines MDD (major depressive disorder) Migraine [place] Osteoarthritis Peripheral neuropathy Urge and stress incontinence Urinary retention Past Family History Family History Father Cardiac disorder Malignant neoplasm of colon Prostate cancer Colorectal cancer Aunt Breast cancer Denies family history of Ovarian cancer Past Surgical History Surgical History H/O hand surgery repair of hand injury due to a dog bite H/O wrist surgery History of breast biopsy History of cystoscopy History of esophagogastroduodenoscopy (EGD) History of mandibular surgery History of robot-assisted laparoscopic hysterectomy Hx of cystoscopy (~08/15/20) TURBT with stent placement [facility] Hx of lumpectomy LEFT (BENIGN) S/P cervical spinal fusion C4-C5 & C5-C6. TOTAL OF 3 FUSIONS ([email or web address]). LIMITED RANGE TO LEFT. HAS BEEN INTUBATED SINCE. Cervical Arthroplasty C4-C5 02/18/14: MAC #3, ETT #7.0, Grade 1 View, Smooth intubation on 1st attempt S/P hardware removal CERVICAL S/P ureteral stent placement Social History Smoking Status: Never smoker Do You Dip or Chew Tobacco: No Hx Alcohol Use: Yes Alcohol type: beer, wine and hard liquor alcohol intake frequency: holidays/special occasions only Hx Substance Use: No substance use type: does not use Physical Exam Vital Signs Last Vital Signs Temp 98.4 F 10/25/21 07:08 Pulse 100 H 10/25/21 07:08 Resp 14 10/25/21 07:08 BP 166/98 H 10/25/21 07:08 Pulse Ox 97 10/25/21 07:08 O2 Del Method 10/25/21 07:08 Testing Laboratory Results 10/25/21 07:56 10/25/21 07:56
[2021-10-25] MEDS ORDERED: MIDAZOLAM HCL 1 MG/ML 2ML VIAL ONE (09:38)
[2021-10-25] MEDS ORDERED: fentaNYL citrate 100 MCG/2 ML VIAL ONE (09:38)
[2021-10-25] MEDS ORDERED: LIDOCAINE HCL/D5W 2000 MG/500 ML BAG IV ONE (09:51)
--- NOTE | 2021-10-25 09:53 | Surgery Consultation ---
Date of Consultation October 25, 2021 Assessment & Plan (1) Small bowel obstruction: Based on her history and I have reviewed the CT scan with radiology/Dr. Marcano. There is some concern for her having a closed-loop obstruction. Since her symptoms have not improved with NG tube decompression I would recommend urgent evaluation in the operating room. We will evaluate this laparoscopically and hopefully can identify the transition point and remedy it. We did discuss that I may need to perform an open procedure if I have inadequate visualization. Also she has gallbladder distention. When I reviewed imaging with Dr. Marcano there may be a small stone that she passed at her previous admission that caused the pancreatitis. Because of her history and these findings I would recommend we would remove her gallbladder at the same time. We discussed the risks of the procedure which would be bleeding, infection, injury to other organs such as bowel or liver, injury to a bile duct or bile leaks, DVT, PE, OH, CVA etc. Following all of this I answered her questions. We will proceed today with laparoscopic release of small bowel obstruction, cholecystectomy, possible open. She agrees with the plan. (2) History of pancreatitis: History of Present Illness Attending Physician: Abdullahi Landeros MD History of Present Illness 51-year-old female who was admitted last night for abdominal pain. CT scan revealed some dilated loops of bowel. She states that she has had several episodes over the last year and a half. They have all felt similar. She was recently admitted for pancreatitis. She has had NG tube in for several hours with minimal improvement of her symptoms. She continues to complain of 6 or 7 out of 10 on the pain scale. She is understandably frustrated Allergies Allergy/AdvReac Type Severity Reaction Status Date / Time rizatriptan Allergy Severe Difficulty Verified 10/25/21 00:43 Breathing benzoin Allergy Unknown USED TO Verified 10/25/21 00:43 PUT UNDER STERI STRIPS TO KEEP THEM ON -- BLISTERS tramadol AdvReac Mild N/V Verified 10/25/21 00:43 Home Medications Medication Instructions Recorded Confirmed Type clonazepam 1 mg tablet 1 mg PO BID PRN Anxiety 02/10/18 10/25/21 History buspirone 10 mg tablet 20 mg PO BID 07/21/18 10/25/21 History acetaminophen 500 mg tablet 1,000 mg PO Q6H PRN Pain 09/19/19 10/25/21 History (Tylenol Extra Strength) bupropion HCl 150 mg 24 hr tablet, 150 mg PO QAM 09/19/19 10/25/21 History extended release (Wellbutrin XL) ibuprofen 200 mg tablet (Advil) 400 - 600 mg PO Q6H PRN rapp/pain 09/19/19 10/25/21 History gabapentin 400 mg capsule 800 mg PO BID 06/26/20 10/25/21 History sertraline 50 mg tablet 75 mg PO QAM 06/26/20 10/25/21 History oxycodone-acetaminophen 7.5 mg-325 1 tab PO Q8H PRN pain #7 tabs 09/08/20 10/25/21 Rx mg tablet (Percocet) ondansetron 4 mg disintegrating 4 mg PO Q6H PRN nausea and 10/05/21 10/25/21 Rx tablet vomiting #14 tabs pantoprazole 40 mg tablet,delayed 40 mg PO BID 14 days #28 tabs 10/18/21 10/25/21 Rx release Patient History Medical History Cervical disc herniation (02/18/14) Cervical radiculopathy GOOD ROM PER PT Chronic low back pain Chronic neck pain Disc degeneration, lumbar NEL (generalized anxiety disorder) Hx of migraines MDD (major depressive disorder) Migraine [place] Osteoarthritis Peripheral neuropathy Urge and stress incontinence Urinary retention Surgical History H/O hand surgery repair of hand injury due to a dog bite H/O wrist surgery History of breast biopsy History of cystoscopy History of esophagogastroduodenoscopy (EGD) History of mandibular surgery History of robot-assisted laparoscopic hysterectomy Hx of cystoscopy (~08/15/20) TURBT with stent placement [facility] Hx of lumpectomy LEFT (BENIGN) S/P cervical spinal fusion C4-C5 & C5-C6. TOTAL OF 3 FUSIONS ([facility]). LIMITED RANGE TO LEFT. HAS BEEN INTUBATED SINCE. 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 Content Checker Required: No Beliefs That Will Affect Care: None marital status: Current Living Situation: Spouse Current Living Situation Comment: at home Feels Safe at Home: Yes Assistive Devices: None Review of Systems Constitutional: as per Subjective / HPI Physical Exam Physical Exam: Alert and oriented. Mild distress secondary to discomfort. Eyes: Extraocular muscles intact. Neck: Supple no lymphadenopathy Cardiovascular: Regular rhythm. Sinus tach Gastrointestinal (Abdomen): Soft. Midline tenderness. Mild distention. No palpable abnormalities. Musculoskeletal: Within normal limits Results & Data ([facility]) Vital Signs (Past 12 Hours) Vital Signs Temp Pulse Resp BP Pulse Ox O2 Del Method 10/25/21 09:40 36.6 C 103 H 18 155/64 H 97 Room Air 10/25/21 07:08 36.9 C 100 H 14 166/98 H 97 Room Air 10/25/21 06:40 36.5 C 94 H 19 170/92 H 96 Room Air 10/25/21 03:00 182/80 H 10/25/21 02:00 36.8 C 81 20 188/103 H 99 Room Air 10/24/21 23:22 83 18 171/83 H 98 PG Care Time/CCT Total # of Minutes Spent Total Time Spent with Patient: Total time spent is greater than 50% in coordination of care (as documented) at patient's floor/unit and/or counseling patient: Coding Level of Care Code 89979 Inpt Consult Level 4 Diagnoses Small bowel obstruction K56.609 History of pancreatitis Z87.19
[2021-10-25] MEDS ORDERED: ONDANSETRON INJ 2 MG/ML 2 ML VIAL IV PRN (10:03)
[2021-10-25] MEDS ORDERED: ATROPINE SULFATE 0.1 MG/ML 10ML SYR IV PRN (10:03)
[2021-10-25] MEDS ORDERED: ePHEDrine sulfate 50 MG/ML AMP IV PRN (10:03)
[2021-10-25] MEDS ORDERED: ceFAZolin 2,000 MG/15 ML IV PUSH IV ONE (10:14)
[2021-10-25] MEDS ORDERED: BUPIVACAINE/EPINEPHRINE 0.25% 1:200,000 30 ML VIAL ONE (10:23)
[2021-10-25] MEDS ORDERED: ROCURONIUM BROMIDE 10 MG/ML 5 ML VIAL IV ONE (10:45)
[2021-10-25] MEDS ORDERED: SUCCINYLCHOLINE CHLORIDE 20 MG/ML 10 ML VIAL IV ONE (10:45)
[2021-10-25] MEDS ORDERED: LIDOCAINE 2% MPF LOCAL 5 ML VIAL INFIL ONE (10:45)
[2021-10-25] MEDS ORDERED: DEXAMETHASONE SOD INJ 4 MG/ML VIAL ONE (10:45)
[2021-10-25] MEDS ORDERED: ONDANSETRON INJ 2 MG/ML 2 ML VIAL ONE (10:45)
[2021-10-25] MEDS ORDERED: PROPOFOL IV EMULSION 10 MG/ML 20 ML VIAL IV ONE (10:45)
[2021-10-25] MEDS ORDERED: HYDROmorphone INJ 2 MG/ML SYR/VIAL ONE (10:51)
[2021-10-25] MEDS ORDERED: PHENYLEPHRINE 100MCG/ML 5ML SYR ONE (11:18)
[2021-10-25] MEDS ORDERED: PROMETHAZINE HCL INJ 25 MG/ML 1 ML VIAL ONE (11:18)
[2021-10-25] MEDS ORDERED: NEOSTIGMINE METHYLSULFATE 1 MG/ML 10ML VIAL ONE (11:41)
[2021-10-25] MEDS ORDERED: GLYCOPYRROLATE 0.2 MG/ML VIAL ONE ×2 (11:41→12:03)
--- NOTE | 2021-10-25 12:02 | Operative Report ---
PG Post Operative Report Pre & Post Diagnosis Operation Date: 10/25/21 08:20 Pre-Op Diagnosis: Small Bowel Obstruction cholecystitis Post-Op Diagnosis: cholecystitis; ascites I identified the patient and participated in the time-out.: Yes Procedure Operation Date: 10/25/21 08:20 Actual Procedures p Diagnostic Laparoscopy with Pelvic Washings(Not Applicable) - Sukumar Wood DO s Laparoscopic Cholecystectomy - Sukumar Wood DO Surgeon Sukumar Wood DO Transport Conductor piotr Klein Estimated Blood Loss 5 Findings Consistent with Post-Op Diagnosis Specimens 1. gallbladder 2. ascitic fluid for cytology Description of Procedure After informed consent was obtained the patient was taken to the operating room and placed in supine position. After successful intubation the abdomen was sterilely prepped and draped in usual fashion. An upper midline incision was made with an 11 blade scalpel. This was carried down through the soft tissue using cautery. The anterior fascia was opened using cautery and two #0 Vicryl stay sutures were placed. Peritoneum was elevated using hemostats and incised under direct vision using a Metzenbaum scissor. A finger sweep was performed. A 12 mm Ellis trocar was placed and the abdomen was insufflated to 18 mmHg. There was immediately some kayce-colored ascitic type fluid that came out of the trocar site. There were pockets of fluid in the upper abdomen as well as in the pelvis. Under direct vision I was able to place a supraumbilical 5 mm port as well as 2 right upper quadrant 5 millimeters ports. The gallbladder itself did look distended and slightly thickened. I began by performing cholecystectomy. The gallbladder was grasped and elevated superiorly and laterally. [place] dissector was used to take down adhesions around the neck of the gallbladder. The cystic artery was skeletonized and clipped twice proximally once distally and transected. The cystic duct was also skeletonized clipped twice proximally once distally and transected. There was a small posterior arterial branch that was clipped and divided as well. The gallbladder was removed from the gallbladder fossa placed into an Endo Catch bag and removed from the camera port site. Any small bleeding points on the gallbladder fossa were controlled using cautery. Thorough irrigation was performed. At the end of the procedure there was adequate hemostasis and no evidence of any bile leaks. Our attention then turned to running the small bowel. I was able to find the terminal ileum. I ran the small bowel using graspers the entire way back to the ligament of Treitz. There was 1 small area in the upper abdomen with some slight edema to the mesentery. There was dilated bowel proximal to this and relatively normal bowel distal to it. However there was no actual point of obstruction. There were no adhesions and no internal hernias. I actually ran the bowel twice once from the terminal ileum to the ligament of Treitz and once from the ligament of Treitz to the terminal ileum. Large bowel looked normal. I did take a sample of the pelvic fluid to send for cytology. The remainder of the pelvic organs look normal. Liver looked normal as well. There was no evidence of a hiatal hernia. No evidence of any abnormalities of peritoneal surfaces. The pelvic was washed out as well. At the end of the procedure there was adequate hemostasis. The trochars were all removed and the abdomen desufflated. The fascia of the camera port was closed using 0 Vicryl in [id number] fashion. All the wounds were irrigated and closed using 4-0 Monocryl. Marcaine with epinephrine was injected around the incisions for postoperative analgesia and skin glue used as a dressing. The patient was awakened extubated and transferred recovery in stable condition. My physician news assistant was present for the entire case. She was instrumental in assisting throughout the procedure including running the camera during my exploration, assisting with the cholecystectomy wound closure and dressing placement. I attest to the content of the Intraoperative Record and any orders documented therein. Any exceptions are noted below.
[2021-10-25] MEDS ORDERED: ESMOLOL HCL INJ 10 MG/ML 10ML VIAL IV ONE (12:03)
[2021-10-25] MEDS: fentaNYL citrate 100 MCG/2 ML VIAL IV PRN ×4 (12:21→12:36)
[2021-10-25] MEDS: HYDROmorphone INJ 2 MG/ML SYR/VIAL IV PRN ×3 (12:55→13:20)
--- NOTE | 2021-10-25 13:22 | Anesthesiology Progress Note ---
Date of Service October 25, 2021 Anesthesia Post Procedure Vital Signs Vital Signs: Temp Pulse Pulse Pulse Resp BP BP 10/25/21 12:50 88 16 151/71 H 10/25/21 12:30 85 20 175/88 H 10/25/21 12:20 92 H 20 182/91 H 10/25/21 13:00 87 14 160/75 H 10/25/21 12:40 79 18 171/90 H 10/25/21 12:10 104 H 18 160/110 H 10/25/21 12:07 97.0 F L 103 H 16 177/99 H 10/25/21 09:40 97.9 F 103 H 18 155/64 H 10/25/21 07:08 98.4 F 100 H 14 166/98 H 10/25/21 06:40 97.7 F 94 H 19 170/92 H 10/25/21 03:00 182/80 H 10/25/21 02:00 98.2 F 81 20 188/103 H 10/24/21 23:22 83 18 171/83 H 10/24/21 20:03 92 H 17 146/70 H 10/24/21 18:10 98.1 F 117 H 18 148/85 H Pulse Ox O2 Del Method O2 Flow Rate 10/25/21 12:50 94 Room Air 10/25/21 12:30 97 Room Air 10/25/21 12:20 100 Nasal Cannula 3 10/25/21 13:00 95 Room Air 10/25/21 12:40 95 Room Air 10/25/21 12:10 100 Nasal Cannula 6 10/25/21 12:07 100 Nasal Cannula 6 10/25/21 09:40 97 Room Air 10/25/21 07:08 97 Room Air 10/25/21 06:40 96 Room Air 10/25/21 03:00 10/25/21 02:00 99 Room Air 10/24/21 23:22 98 10/24/21 20:03 98 Room Air 10/24/21 18:10 96 Room Air Pain Intensity Abdomen: Pain Intensity: 9 Transfer of Care Handoff Completed per policy Notes Mental Status: alert / awake / arousable and participated in evaluation Patient Amnestic to Procedure: Yes Nausea / Vomiting: adequately controlled Pain: adequately controlled Airway Patency, RR, SpO2: stable & adequate BP & HR: stable & adequate Hydration State: stable & adequate Anesthetic Complications: no major complications apparent and Pt Satisfied with anesthetic care
[2021-10-25] MEDS: HYDROmorphone INJ 1 MG/ML SYRINGE IV PRN ×2 (14:52→20:06)
[2021-10-25 15:25] LABS: Appearance Peritoneal Fluid Hazy; Basophils, Fluid 3 %; Color Peritoneal Fluid Yellow; Eosinophils, Fluid 2 %; Lymphocytes, Fluid 14 %; Mono,Macrophage,Mesothelial 78 %; Neutrophils, Fluid 3 %; RBC Peritoneal Fluid (A) 2000 /uL; WBC Peritoneal Fluid (A) 259 /ul (0-300)
[2021-10-25] MEDS ORDERED: HYDROmorphone INJ 1 MG/ML SYRINGE IV STA (16:12)
--- NOTE | 2021-10-25 16:36 | Hospitalist Progress Note ---
Date of Service October 25, 2021 Assessment & Plan (1) Volvulus of small intestine: Plan: Small bowel obstruction cholecystitis status post laparoscopic cholecystectomy NG tube to low to intermittent suction reconfirm placement by KUB NPO Famotidine 20 mg IV every 12 hours Lactated Ringer's at 80 mils per hour Zofran 4 mg IV every 6 hours as needed Acetaminophen 1 g IV every 8 hours as needed mild pain or fever Toradol 15 mg IV every 6 hours as needed moderate pain Patient did have MRCP on 10/14/2021 which showed pancreatic head and body edema, with no signs of stones or obstruction General surgery consult performed laparoscopic cholecystectomy 10/25/2021 no defined transition point was seen in her small bowel to explain the CT findings on presentation (2) Enteritis: Plan: See above (3) Acute pancreatitis: Plan: Was admitted from 10/14-10/18/2021 for pancreatitis (4) Urge and stress incontinence: Plan: Resume her usual medications when NG tube is removed (5) MDD (major depressive disorder): Plan: Resume usual medications with NG tube removed (6) NEL (generalized anxiety disorder): Plan: Placed on lorazepam 0.5 mg IV every 6 hours as needed (7) Urinary retention: Plan: Follow urine output following IV fluids (8) Nausea & vomiting: Plan: Zofran IV as noted above Admission and Anticipated Discharge Date Admission Date: October 24, 2021 Subjective Patient seen postoperatively mildly sedate Significant right lower quadrant abdominal pain requiring escalation of parenteral pain control Nursing notification NG tube suctioning not resulting in any output pending KUB placement Review of Systems Review of Systems: Moderate distress and fatigue no headache, no visual changes no speech or swallowing issues no chest pain, pressure or palpitations no shortness of breath, cough or wheezes Right lower quadrant abdominal pain, no nausea or vomiting but has NG tube, no dysuria, hematuria or frequency no focal joint pain or swelling no back pain, CVA tenderness or radicular pain no bruising, bleeding or rashes no focal signs of weakness or numbness or altered sensation no complaints of anxiety or depression.. Physical Exam Physical Exam: The patient appeared well nourished and normally developed. She is in moderate distress Vital signs as documented. Head exam is normocephalic atraumatic Neck is without JVD, thyromegaly, or carotid bruits. Lungs are clear to auscultation, no focal loss of breath sounds Cardiac exam, Rhythm is tachycardic.. No murmurs, rubs or gallops. Abdominal exam reveals hypoactive to absent bowel sounds, soft tender mostly in the lower quadrants right greater than left Extremities are nonedematous and both pedal pulses are present Neurologic exam is alert and oriented, no focal loss of strength or sensation Skin is without bruises or rashes Psychologically is without concerns for anxiety or depression.. Results & Data Results & Data ([facility]) Vital Signs (Past 12 Hours) Vital Signs Temp Pulse Pulse Resp BP Pulse Ox O2 Del Method 10/25/21 15:53 97.5 F L 132 H 12 101/66 92 Room Air 10/25/21 15:34 129 H 20 103/66 92 Room Air 10/25/21 14:50 97.7 F 113 H 16 107/70 93 Room Air 10/25/21 14:12 97.9 F 109 H 16 134/83 93 Room Air 10/25/21 13:50 98.2 F 106 H 18 111/67 94 Room Air 10/25/21 13:40 97.5 F L 99 H 11 L 137/75 94 Room Air 10/25/21 13:30 97.5 F L 96 H 15 139/80 93 Room Air 10/25/21 13:20 97.5 F L 97 H 19 143/86 H 94 Room Air 10/25/21 13:10 97.5 F L 96 H 19 143/82 H 94 Room Air 10/25/21 12:50 88 16 151/71 H 94 Room Air 10/25/21 12:30 85 20 175/88 H 97 Room Air 10/25/21 12:20 92 H 20 182/91 H 100 Nasal Cannula 10/25/21 13:00 87 14 160/75 H 95 Room Air 10/25/21 12:40 79 18 171/90 H 95 Room Air 10/25/21 12:10 104 H 18 160/110 H 100 Nasal Cannula 10/25/21 12:07 97.0 F L 103 H 16 177/99 H 100 Nasal Cannula 10/25/21 09:40 97.9 F 103 H 18 155/64 H 97 Room Air 10/25/21 07:08 98.4 F 100 H 14 166/98 H 97 Room Air 10/25/21 06:40 97.7 F 94 H 19 170/92 H 96 Room Air O2 Flow Rate 10/25/21 15:53 10/25/21 15:34 10/25/21 14:50 10/25/21 14:12 10/25/21 13:50 10/25/21 13:40 10/25/21 13:30 10/25/21 13:20 10/25/21 13:10 10/25/21 12:50 10/25/21 12:30 10/25/21 12:20 3 10/25/21 13:00 10/25/21 12:40 10/25/21 12:10 6 10/25/21 12:07 6 10/25/21 09:40 10/25/21 07:08 10/25/21 06:40 PG Care Time/CCT Total # of Minutes Spent Total Time Spent with Patient: Total time spent is greater than 50% in coordination of care (as documented) at patient's floor/unit and/or counseling patient: Coding Level of Care Code 34723 Subseq Hosp Care Lvl 2 Diagnoses Volvulus of small intestine K56.2 Enteritis K52.9 Acute pancreatitis K85.80 Acute pancreatitis complication: unspecified Pancreatitis type: other Urge and stress incontinence N39.46 MDD (major depressive disorder) F32.9 NEL (generalized anxiety disorder) F41.1 Urinary retention R33.9 Nausea & vomiting R11.2 Vomiting type: unspecified (1) Acute pancreatitis Acute pancreatitis complication: unspecified Pancreatitis type: other Qualified Code(s): K85.80 - Other acute pancreatitis without necrosis or infection (2) Nausea & vomiting Vomiting type: unspecified Qualified Code(s): R11.2 - Nausea with vomiting, unspecified
--- NOTE | 2021-10-25 17:41 | XRay Report ---
KUB HISTORY: kub plACEMENT NOT RETURNING SUCTION AT PRESENT COMPARISON: KUB 10/24/2021. FINDINGS: The nasogastric tube terminates in the body the stomach. Prior cholecystectomy. Moderate we ll-formed stool within the colon. No dilated loops of bowel identified. No renal calculi. No uretera l calculi. No pneumoperitoneum or pneumatosis. IMPRESSION: Nasogastric tube terminates in the mid stomach. ACT 112: Negative or not required by law. Electronically signed by: Glenn Cedillo M.D. 10/25/2021 5:40 PM
[2021-10-25 21:29] LABS: Hematocrit (blood only) 31.8 % (34.1-44.9); Hemoglobin 10.2 g/dl (12.0-16.0); Mean Corpuscular Hemoglobin 35.2 pg (25.0-34.0); Mean Corpuscular Hgb Conc 32.1 g/dL (32.0-36.0); Mean Corpuscular Volume 109.7 fL (80.0-100.0); Mean Platelet Volume 9.3 fL (9.4-12.3); Platelet Count 809 K/uL (130-400); RDW Coefficient of Variation 13.8 % (11.5-14.5); RDW Standard Deviation 56.3 fL (36.4-46.3)
[2021-10-25 21:33] LABS: BUN Creatinine Ratio 17.7 (10-20); Calcium 8.2 mg/dl (8.5-10.1); Est GFR (African American) 100.5 ml/min; Est GFR (Non-African American) 86.7 ml/min; Potassium 4.3 mmol/L (3.5-5.1)
[2021-10-26] MEDS: LACTATED RINGER'S 1,000 ML IV SCH ×3 (00:46→23:33)
[2021-10-26] MEDS: FAMOTIDINE 20 MG in SYRINGE 3 ML IV SCH ×2 (02:15→13:00)
[2021-10-26] MEDS: HYDROmorphone INJ 0.5 MG/0.5 ML SYR IV PRN (03:11)
[2021-10-26 05:28] LABS: Basophils # (auto) 0.09 K/uL (0-0.2); Basophils % (auto) 0.9 %; Eosinophils # (auto) 0.01 K/uL (0-0.50); Eosinophils % (auto) 0.1 %; Hematocrit (blood only) 23.4 % (34.1-44.9); Hemoglobin 7.6 g/dl (12.0-16.0); Immature Granulocytes # (auto) 0.04 K/uL (0.00-0.02); Immature Granulocytes % (auto) 0.4 %; Lymphocytes # (auto) 1.76 K/uL (1.2-3.4); Lymphocytes % (auto) 17.6 %; Mean Corpuscular Hemoglobin 34.4 pg (25.0-34.0); Mean Corpuscular Hgb Conc 32.5 g/dL (32.0-36.0); Mean Corpuscular Volume 105.9 fL (80.0-100.0); Mean Platelet Volume 9.2 fL (9.4-12.3); Monocytes # (auto) 1.37 K/uL (0.24-0.82); Monocytes % (auto) 13.7 %; Neutrophils # (auto) 6.71 K/uL (1.4-6.5); Neutrophils % (auto) 67.3 %; Platelet Count 605 K/uL (130-400); RDW Coefficient of Variation 13.7 % (11.5-14.5); RDW Standard Deviation 52.5 fL (36.4-46.3); Red Blood Count 2.21 M/uL (3.93-5.22); White Blood Count 9.98 K/ul (4.8-10.8)
[2021-10-26] MEDS: LORazepam 0.5 MG in SYRINGE 0.25 ML IV SCH ×4 (05:40→18:11)
[2021-10-26 05:55] LABS: Albumin Globulin Ratio 1.5 (0.9-2); BUN Creatinine Ratio 22.1 (10-20); Bilirubin,Total 0.3 mg/dl (0.2-1.0); Calcium 7.8 mg/dl (8.5-10.1); Creatinine Clr Calc Pharmacy 90.3 ml/min; Est GFR (African American) 103.6 ml/min; Est GFR (Non-African American) 89.4 ml/min; Magnesium 1.8 mg/dl (1.7-2.4); Potassium 4.1 mmol/L (3.5-5.1)
[2021-10-26 06:16] LABS: RBC Morphology Unremarkable
[2021-10-26] MEDS: HYDROmorphone INJ 1 MG/ML SYRINGE IV PRN ×4 (07:53→18:06)
[2021-10-26] MEDS ORDERED: CHLORASEPTIC 1.4% SOLN 180 ML BTL MT PRN (08:26)
--- NOTE | 2021-10-26 08:55 | XRay Report ---
XR KUB/Abdomen 1 view CLINICAL HISTORY: eval bowel gas pattern. COMPARISON STUDY: 10/25/2021 TECHNIQUE: 2 supine views of the abdomen FINDINGS: The bowel gas pattern is within normal limits without evidence for dilatation or obstruction. NG tube is again seen in the upper body of the stomach. There is evidence for hepatomegaly with the tip of t he liver extending below the right iliac crest. No abnormal calcifications are seen along the course of the urinary tracts bilaterally. No acute osseous pathology. IMPRESSION: 1. No acute intra-abdominal abnormality. 2. Evidence for hepatomegaly. ACT 112: Negative or not required by law. Electronically signed by: Alejandro Bowman M.D. 10/26/2021 8:54 AM
[2021-10-26] MEDS ORDERED: SODIUM CHLORIDE 0.9% 250 ML IV PRN (08:56)
[2021-10-26] MEDS ORDERED: oxyCODONE HCL IR 5 MG TAB (IMMEDIATE RELEASE) PO PRN ×2 (09:07)
--- NOTE | 2021-10-26 09:14 | Surgery Progress Note ---
Date of Service October 26, 2021 Assessment & Plan (1) Small bowel obstruction: Plan: POD#1 diagnostic laparoscopy and lap lonnie WBC 9, Hbg downtrending 7.6 (10.2)...will monitor, hospitalists have blood on hold if decision to transfuse NGT with minimal output, KUB this AM unremarkable...will d/c ngt and start sips/chips, possible clears Incisions c/d/i Continue prn pain regimen Required straight cath for urinary retention x2 Encouraged OOB ambulating pt seen. "hungry". sore throat from ngt. H/H slightly increased. doubt intra- abdominal bleeding. will advance diet. her preoperative pain has resolved. repeat H/H tomorrow. (2) S/P laparoscopic cholecystectomy: Admission and Anticipated Discharge Date Admission Date: October 24, 2021 Subjective Patient feeling okay. Really bothered by NGT and wants it removed. No nausea/vomiting. Passing tiny amounts of flatus. Feels bloated. having some belly pain post procedure. Required straight cath x2 for urinary retention. Physical Exam Physical Exam: awake/alert. no acute distress Respiratory: normal respiratory effort Gastrointestinal (Abdomen): Inspection/Auscultation: + abdominal surgical incision (c/d/i with dermabond, no signs of infection); abdomen not distended Percussion/Palpation: + abdomen tender (generalized discomfort to palpation) and abdomen soft NGT with light brown output ~160cc documented Results & Data ([facility]) Vital Signs (Past 12 Hours) Vital Signs Temp Pulse Resp BP BP Pulse Ox O2 Del Method 10/26/21 07:53 36.6 C 124 H 16 133/69 98 Room Air 10/26/21 03:07 36.7 C 101 H 16 127/72 94 Room Air 10/25/21 23:23 37.1 C 106 H 16 121/61 97 Room Air PG Care Time/CCT Total # of Minutes Spent Total Time Spent with Patient: Total time spent is greater than 50% in coordination of care (as documented) at patient's floor/unit and/or counseling patient: Coding Level of Care Code None Diagnoses Small bowel obstruction K56.609 S/P laparoscopic cholecystectomy Z90.49
[2021-10-26] MEDS: KETOROLAC TROMETHAMINE 15 MG/ML VIAL IV PRN ×2 (12:25→23:32)
[2021-10-26 14:31] LABS: Hematocrit (blood only) 24.4 % (34.1-44.9); Hemoglobin 7.9 g/dl (12.0-16.0); Mean Corpuscular Hemoglobin 35.3 pg (25.0-34.0); Mean Corpuscular Hgb Conc 32.4 g/dL (32.0-36.0); Mean Corpuscular Volume 108.9 fL (80.0-100.0); Mean Platelet Volume 9.3 fL (9.4-12.3); Platelet Count 687 K/uL (130-400); RDW Coefficient of Variation 13.9 % (11.5-14.5); RDW Standard Deviation 54.9 fL (36.4-46.3); Red Blood Count 2.24 M/uL (3.93-5.22); White Blood Count 11.79 K/ul (4.8-10.8)
[2021-10-26] MEDS ORDERED: SIMETHICONE 80 MG CHEW PO PRN (15:04)
--- NOTE | 2021-10-26 15:28 | Hospitalist Progress Note ---
Date of Service October 26, 2021 Assessment & Plan (1) Volvulus of small intestine: Plan: Small bowel obstruction cholecystitis status post laparoscopic cholecystectomy, no defined bowel obstruction identified NG tube removed surgery to decide on post op po intake Famotidine 20 mg IV every 12 hours continue ivf acute post operative anemia, stable at 7.9 Patient did have MRCP on 10/14/2021 which showed pancreatic head and body edema, with no signs of stones or obstruction General surgery consult performed laparoscopic cholecystectomy 10/25/2021 no defined transition point was seen in her small bowel to explain the CT findings on presentation (2) Enteritis: Plan: See above (3) Acute pancreatitis: Plan: Was admitted from 10/14-10/18/2021 for pancreatitis (4) Urge and stress incontinence: Plan: Resume her usual medications when NG tube is removed (5) MDD (major depressive disorder): Plan: Resume usual medications with NG tube removed (6) NEL (generalized anxiety disorder): Plan: Placed on lorazepam 0.5 mg IV every 6 hours as needed (7) Urinary retention: Plan: Follow urine output following IV fluids (8) Nausea & vomiting: Plan: Zofran IV as noted above (9) Postoperative anemia: Admission and Anticipated Discharge Date Admission Date: October 24, 2021 Subjective Patient appears pale consistent with her acute post op anemia 7.9 Has urinary retention requiring straight cath x2 Abdominal pain postoperatively. However does have appetite and wants to try to eat eat Review of Systems Review of Systems: Moderate distress and fatigue no headache, no visual changes no speech or swallowing issues no chest pain, pressure or palpitations no shortness of breath, cough or wheezes Right lower quadrant abdominal pain, no nausea or vomiting mild discomfort with rebound testing no dysuria, hematuria or frequency no focal joint pain or swelling no back pain, CVA tenderness or radicular pain no bruising, bleeding or rashes no focal signs of weakness or numbness or altered sensation no complaints of anxiety or depression.. Physical Exam Physical Exam: The patient appeared well nourished and normally developed. Vital signs as documented. Head exam is normocephalic atraumatic Neck is without JVD, thyromegaly, or carotid bruits. Lungs are clear to auscultation, no focal loss of breath sounds Cardiac exam, Rhythm is tachycardic.. No murmurs, rubs or gallops. Abdominal exam reveals hypoactive bowel sounds, soft tender mostly in the lower quadrants some mild rebound type changes Extremities are nonedematous and both pedal pulses are present Neurologic exam is alert and oriented, no focal loss of strength or sensation Skin is without bruises or rashes Psychologically is without concerns for anxiety or depression.. Results & Data Results & Data ([facility]) Vital Signs (Past 12 Hours) Vital Signs Temp Pulse Resp BP Pulse Ox O2 Del Method 10/26/21 14:43 98.1 F 108 H 16 127/77 96 Room Air 10/26/21 07:53 97.9 F 124 H 16 133/69 98 Room Air PG Care Time/CCT Total # of Minutes Spent Total Time Spent with Patient: Total time spent is greater than 50% in coordination of care (as documented) at patient's floor/unit and/or counseling patient: Coding Level of Care Code 53539 Subseq Hosp Care Lvl 3 Diagnoses Volvulus of small intestine K56.2 Enteritis K52.9 Acute pancreatitis K85.80 Acute pancreatitis complication: unspecified Pancreatitis type: other Urge and stress incontinence N39.46 MDD (major depressive disorder) F32.9 NEL (generalized anxiety disorder) F41.1 Urinary retention R33.9 Nausea & vomiting R11.2 Vomiting type: unspecified Postoperative anemia D64.9 (1) Acute pancreatitis Acute pancreatitis complication: unspecified Pancreatitis type: other Qualified Code(s): K85.80 - Other acute pancreatitis without necrosis or infection (2) Nausea & vomiting Vomiting type: unspecified Qualified Code(s): R11.2 - Nausea with vomiting, unspecified
[2021-10-27] MEDS: LORazepam 0.5 MG in SYRINGE 0.25 ML IV SCH ×4 (01:10→17:49)
[2021-10-27] MEDS: FAMOTIDINE 20 MG in SYRINGE 3 ML IV SCH ×2 (03:19→13:48)
[2021-10-27 06:21] LABS: Hematocrit (blood only) 18.2 % (34.1-44.9); Mean Corpuscular Hemoglobin 34.5 pg (25.0-34.0); Mean Corpuscular Volume 104.6 fL (80.0-100.0); Mean Platelet Volume 9.1 fL (9.4-12.3); Platelet Count 482 K/uL (130-400); RDW Coefficient of Variation 13.3 % (11.5-14.5); Red Blood Count 1.74 M/uL (3.93-5.22); White Blood Count 7.08 K/ul (4.8-10.8)
[2021-10-27] MEDS ORDERED: SODIUM CHLORIDE 0.9% 250 ML IV PRN (06:28)
[2021-10-27 06:49] LABS: Albumin Globulin Ratio 1.6 (0.9-2); Albumin Level 3.1 gm/dl (3.4-5.0); BUN Creatinine Ratio 18.3 (10-20); Bilirubin,Total 0.3 mg/dl (0.2-1.0); Creatinine Clr Calc Pharmacy 115.9 ml/min; Est GFR (African American) 122.3 ml/min; Est GFR (Non-African American) 105.5 ml/min; Globulin 1.9 gm/dl (2.5-4.0); Magnesium 1.9 mg/dl (1.7-2.4); Potassium 3.7 mmol/L (3.5-5.1)
[2021-10-27 07:26] LABS: Basophils # (auto) 0.08 K/uL (0-0.2); Basophils % (auto) 1.1 %; Eosinophils % (auto) 1.4 %; Immature Granulocytes # (auto) 0.05 K/uL (0.00-0.02); Immature Granulocytes % (auto) 0.7 %; Lymphocytes # (auto) 1.34 K/uL (1.2-3.4); Lymphocytes % (auto) 18.9 %; Monocytes # (auto) 0.84 K/uL (0.24-0.82); Monocytes % (auto) 11.9 %; Neutrophils # (auto) 4.67 K/uL (1.4-6.5)
[2021-10-27] MEDS: KETOROLAC TROMETHAMINE 15 MG/ML VIAL IV PRN (08:42)
[2021-10-27] MEDS ORDERED: OPTIRAY 320 100ml IV ONE (09:02)
--- NOTE | 2021-10-27 09:19 | CT Scan Report ---
CT abd pelvis IV con only CLINICAL HISTORY: postop anemia. Status post cholecystectomy. TECHNIQUE: Helical axial images of the abdomen and pelvis were obtained and displayed. Automated dose lowering techniques and/or adjustment according to patient size were utilized for this exam. This e xam was performed with intravenous contrast. CT DOSE: 409.14 mGy.cm COMPARISON: None available at the time of this dictation. FINDINGS: Lower chest: No acute abnormality Liver: Unremarkable. No focal lesions are seen. Gallbladder and biliary tree: Patient is status post cholecystectomy. No intra- or extrahepatic bilia ry ductal dilation. Pancreas: Unremarkable, no focal lesions. Spleen: Unremarkable. Adrenals: Unremarkable. Kidneys and ureters: Unremarkable. Bladder: Unremarkable. Reproductive organs: Patient is status post hysterectomy. Bowel: Unremarkable. Lymph nodes Retroperitoneal: Unremarkable. Mesenteric: Unremarkable. Pelvic: Unremarkable. Peritoneum: Hyperdense material is seen most prominently in the right upper quadrant about the liver, but also extending to the mesentery and pelvis. A few foci of pneumoperitoneum are seen compatible w ith history of laparoscopic procedure. Vessels: Unremarkable. Abdominal wall: A few foci of stranding are seen compatible with postprocedural status. Bones: Degenerative changes in the visualized spine. IMPRESSION: Findings are concerning for intraperitoneal hemorrhage in this anemic patient status post cholecystec jameson. ACT 112: Negative or not required by law. Electronically signed by: Loco Mijares M.D. 10/27/2021 9:16 AM
[2021-10-27] MEDS: LACTATED RINGER'S 1,000 ML IV SCH ×2 (09:20→16:46)
--- NOTE | 2021-10-27 09:39 | History & Physical Bridge Note ---
Date of Service October 27, 2021 History & Physical Bridge Note I have examined the patient, reviewed the History & Physical and in the interval since the performance of the History & Physical I have noted the following changes of clinical significance: pt with post op hemeglobin drop s/p lap lonnie [address] shows fluid in RUQ/pelvis c/w blood. pt mildly tachycardic. discussed finding/risks/options. will proceed with dx laparoscopy and abdominal washout this morning. pt agreeable. questions answered.
[2021-10-27] MEDS ORDERED: PROPOFOL IV EMULSION 10 MG/ML 20 ML VIAL IV ONE (09:49)
[2021-10-27] MEDS ORDERED: ONDANSETRON INJ 2 MG/ML 2 ML VIAL ONE (09:50)
[2021-10-27] MEDS ORDERED: LIDOCAINE 2% MPF LOCAL 5 ML VIAL INFIL ONE (09:50)
[2021-10-27] MEDS ORDERED: MIDAZOLAM HCL 1 MG/ML 2ML VIAL ONE (09:50)
[2021-10-27] MEDS ORDERED: DEXAMETHASONE SOD INJ 4 MG/ML VIAL ONE (09:50)
[2021-10-27] MEDS ORDERED: fentaNYL citrate 100 MCG/2 ML VIAL ONE ×3 (09:51→12:05)
[2021-10-27] MEDS ORDERED: EPINEPHrine INJ 1 MG/ML AMP ONE (09:55)
[2021-10-27] MEDS ORDERED: BUPIVACAINE 0.5 % 5 MG/1 ML MPF 30ML VIAL ONE (09:55)
--- NOTE | 2021-10-27 10:06 | Surgery Progress Note ---
Date of Service October 27, 2021 Assessment & Plan (1) S/P laparoscopic cholecystectomy: Plan: H&H continues to drop now 09/30 CT shows hemoperitoneum will proceed this morning with laparoscopy, washout will also transfuse PRBCs Admission and Anticipated Discharge Date Admission Date: October 24, 2021 Subjective having some pain, hungry Physical Exam Gastrointestinal (Abdomen): Inspection/Auscultation: + abdominal surgical incision (clean, dry); no abdominal wall ecchymosis Percussion/Palpation: + abdomen tender and abdomen soft Results & Data ([facility]) Vital Signs (Past 12 Hours) Vital Signs Temp Pulse Resp BP BP Pulse Ox O2 Del Method 10/27/21 07:09 36.9 C 101 H 16 130/69 97 Room Air 10/26/21 22:23 36.7 C 116 H 18 123/69 96 Room Air PG Care Time/CCT Total # of Minutes Spent Total Time Spent with Patient: Total time spent is greater than 50% in coordination of care (as documented) at patient's floor/unit and/or counseling patient: Coding Level of Care Code None Diagnoses S/P laparoscopic cholecystectomy Z90.49
[2021-10-27] MEDS ORDERED: ceFAZolin 2,000 MG/15 ML IV PUSH IV ONE (10:21)
[2021-10-27] MEDS ORDERED: ceFAZolin 2000MG 2,000 MG/15 ML SYR IV ONE (10:24)
[2021-10-27] MEDS ORDERED: ROCURONIUM BROMIDE 10 MG/ML 5 ML VIAL IV ONE ×2 (11:09)
[2021-10-27] MEDS ORDERED: MoRPHine SULFATE 2 MG/ML CARP ONE (11:23)
--- NOTE | 2021-10-27 11:28 | Anesthesiology Consultation ---
Date of Service October 27, 2021 Assessment & Plan Chart Review Chart Review: Acceptable Risk for Surgery Consults Requested none History Surgery Operation Date: 10/25/21 08:20 Proposed Procedures p Laparoscopy Release of Small Bowel Obstruction, - Sukumar Wood DO s Laparoscopic Cholecystectomy, Possible Open - Sukumar Wood DO Operation Date: 10/27/21 12:50 Proposed Procedures p Laparoscopic Washout S/P Laparoscopic Cholecystectomy - Sukumar Wood DO Height/Weight Height: 5 ft 9 in Weight: 68.7 kg Allergies Allergy/AdvReac Type Severity Reaction Status Date / Time rizatriptan Allergy Severe Difficulty Verified 10/25/21 00:43 Breathing benzoin Allergy Unknown USED TO Verified 10/25/21 00:43 PUT UNDER STERI STRIPS TO KEEP THEM ON -- BLISTERS tramadol AdvReac Mild N/V Verified 10/25/21 00:43 Medications Home Medications Medication Instructions Recorded Confirmed Last Taken clonazepam 1 mg tablet 1 mg PO BID PRN Anxiety 02/10/18 10/25/21 09/07/20 08:00 buspirone 10 mg tablet 20 mg PO BID 07/21/18 10/25/21 09/07/20 23:00 acetaminophen 500 mg tablet 1,000 mg PO Q6H PRN Pain 09/19/19 10/25/21 09/07/20 23:00 (Tylenol Extra Strength) bupropion HCl 150 mg 24 hr tablet, 150 mg PO QAM 09/19/19 10/25/21 09/07/20 08:00 extended release (Wellbutrin XL) ibuprofen 200 mg tablet (Advil) 400 - 600 mg PO Q6H PRN rapp/pain 09/19/19 10/25/21 09/07/20 08:00 gabapentin 400 mg capsule 800 mg PO BID 06/26/20 10/25/21 09/07/20 23:00 sertraline 50 mg tablet 75 mg PO QAM 06/26/20 10/25/21 09/07/20 08:00 oxycodone-acetaminophen 7.5 mg-325 1 tab PO Q8H PRN pain #7 tabs 09/08/20 10/25/21 Unknown mg tablet (Percocet) ondansetron 4 mg disintegrating 4 mg PO Q6H PRN nausea and 10/05/21 10/25/21 Unknown tablet vomiting #14 tabs pantoprazole 40 mg tablet,delayed 40 mg PO BID 14 days #28 tabs 10/18/21 2 Unknown release Active Medications Generic Name Dose Route Start Last Admin Trade Name Debo PRN Reason Stop Dose Admin Hydromorphone HCl 0.5 mg 10/25/21 14:09 10/26/21 03:11 Hydromorphone Inj 0.5 Mg/0.5 Ml Syr IV 11/08/21 14:08 0.5 mg Q3H PRN Administration Moderate pain Hydromorphone HCl 1 mg 10/25/21 19:00 10/26/21 18:06 Hydromorphone Inj 1 Mg/Ml Syringe IV 11/08/21 18:59 1 mg Q3H PRN Administration Severe Pain Acetaminophen 1,000 mg in 100 mls @ 400 mls/hr 10/25/21 00:04 10/25/21 17:04 Ofirmev IV 10/28/21 00:03 Infused Q8H PRN Infusion Mild pain or fever Famotidine 20 mg/ Syringe 5 mls @ 2.5 mls/min 10/25/21 02:00 10/27/21 03:19 IV 11/24/21 01:59 Not Given Q12H MARYLIN Lorazepam 0.5 mg/ Syringe 0.5 mls @ 2 mls/min 10/25/21 06:00 10/27/21 08:42 IV 11/24/21 05:59 2 mls/min Q6H MARYLIN Administration Lactated Ringer's 1,000 mls @ 100 mls/hr 10/25/21 14:09 10/27/21 09:20 Lr IV 11/24/21 14:08 100 mls/hr .Q10H MARYLIN Administration Ketorolac Tromethamine 15 mg 10/24/21 23:49 10/27/21 08:42 Ketorolac Tromethamine 15 Mg/Ml Vial IV 10/29/21 23:48 15 mg Q6H PRN Administration Moderate Pain Ondansetron HCl 4 mg 10/25/21 01:39 10/25/21 18:15 Ondansetron Inj 2 Mg/Ml 2 Ml Vial IV 11/24/21 01:38 4 mg Q6H PRN Administration Nausea Oxycodone HCl 10 mg 10/26/21 09:07 10/27/21 04:54 Oxycodone Hcl Ir 5 Mg Tab (Immediate Release) PO 11/09/21 09:06 10 mg Q4H PRN Administration Severe pain Simethicone 80 mg 10/26/21 15:04 10/26/21 16:13 Simethicone 80 Mg Chew PO 11/25/21 15:03 80 mg Q6H PRN Administration gas pain NPO Date Last Intake of Fluids: 10/27/21 Time Last Intake of Fluids: 05:00 Date Last Intake of Solids: 10/26/21 Time Last Intake of Solids: 17:30 Past Medical History Medical History (Updated 10/26/21 @ 15:31 by Abdullahi Landeros MD) Cervical disc herniation (02/18/14) Cervical radiculopathy GOOD ROM PER PT Chronic low back pain Chronic neck pain Disc degeneration, lumbar NEL (generalized anxiety disorder) Hx of migraines MDD (major depressive disorder) Migraine [place] Osteoarthritis Peripheral neuropathy Urge and stress incontinence Urinary retention Past Family History Family History Father Cardiac disorder Malignant neoplasm of colon Prostate cancer Colorectal cancer Aunt Breast cancer Denies family history of Ovarian cancer Past Surgical History Surgical History (Updated 10/26/21 @ 09:12 by Salome Klein PA-C) H/O hand surgery repair of hand injury due to a dog bite H/O wrist surgery History of breast biopsy History of cystoscopy History of esophagogastroduodenoscopy (EGD) History of mandibular surgery History of robot-assisted laparoscopic hysterectomy Hx of abdominal surgery (10/25/21) p Diagnostic Laparoscopy with Pelvic Washings(Not Applicable) - Sukumar Wood DO s Laparoscopic Cholecystectomy - Sukumar Wood DO Hx of cystoscopy (~08/15/20) TURBT with stent placement [facility] Hx of lumpectomy LEFT (BENIGN) S/P cervical spinal fusion C4-C5 & C5-C6. TOTAL OF 3 FUSIONS ([employer]). LIMITED RANGE TO LEFT. HAS BEEN INTUBATED SINCE. Cervical Arthroplasty C4-C5 02/18/14: MAC #3, ETT #7.0, Grade 1 View, Smooth intubation on 1st attempt S/P hardware removal CERVICAL S/P ureteral stent placement Social History Smoking Status: Never smoker Do You Dip or Chew Tobacco: No Hx Alcohol Use: Yes Alcohol type: beer, wine and hard liquor alcohol intake frequency: holidays/special occasions only Hx Substance Use: No substance use type: does not use Physical Exam Vital Signs Last Vital Signs Temp 36.8 C 10/27/21 09:59 Pulse 97 H 10/27/21 09:59 Resp 16 10/27/21 09:59 BP 123/78 10/27/21 09:59 Pulse Ox 99 10/27/21 09:59 O2 Del Method 10/27/21 09:59 O2 Flow Rate 3 10/25/21 12:20 Testing Laboratory Results 10/27/21 05:52 10/27/21 05:52 Blood Type O Positive 10/26/21 09:11 Antibody Screen NEGATIVE 10/26/21 09:11
[2021-10-27] MEDS ORDERED: ONDANSETRON INJ 2 MG/ML 2 ML VIAL IV PRN (11:30)
[2021-10-27] MEDS ORDERED: fentaNYL citrate 100 MCG/2 ML VIAL IV PRN (11:30)
[2021-10-27] MEDS ORDERED: HYDROmorphone INJ 2 MG/ML SYR/VIAL IV PRN (11:30)
[2021-10-27] MEDS ORDERED: ATROPINE SULFATE 0.1 MG/ML 10ML SYR IV PRN (11:30)
[2021-10-27] MEDS ORDERED: ePHEDrine sulfate 50 MG/ML AMP IV PRN (11:30)
[2021-10-27] MEDS ORDERED: PROMETHAZINE HCL 12.5 MG in SODIUM CHLORIDE 0.9% 50 ML IV PRN (11:30)
--- NOTE | 2021-10-27 12:09 | Operative Report ---
PG Post Operative Report Pre & Post Diagnosis Operation Date: 10/25/21 08:20 Pre-Op Diagnosis: Small Bowel Obstruction Pancreatitis Post-Op Diagnosis: Small Bowel Obstruction Pancreatitis Operation Date: 10/27/21 12:50 Pre-Op Diagnosis: post operative bleeding Post-Op Diagnosis: post operative bleeding I identified the patient and participated in the time-out.: Yes Procedure Operation Date: 10/25/21 08:20 Actual Procedures p Diagnostic Laparoscopy with Pelvic Washings(Not Applicable) - Sukumar Wood DO s Laparoscopic Cholecystectomy - Sukumar Wood DO Operation Date: 10/27/21 12:50 Actual Procedures p Laparoscopic Washout S/P Laparoscopic Cholecystectomy(Not Applicable) - Sukumar Wood DO Surgeon Sukumar Wood DO Mail Technician piotr Klein Estimated Blood Loss 1,000 Findings Consistent with Post-Op Diagnosis Specimens none Description of Procedure After informed consent was obtained the patient was taken to the operating room and placed in supine position. After successful intubation the abdomen was sterilely prepped and draped in usual fashion. I began in her upper midline incision by reopening it. The stay the fascial suture was removed. 2 new 0 Vicryl stay sutures were placed. A 12 mm Ellis trocar was placed and the abdomen was insufflated to 20 mmHg. Laparoscope was inserted. We readily encountered primarily old clotted blood. I was able to place 2 right upper quadrant trocar as well as a super umbilical trocar through her old scar lines. We spent the majority the time simply suctioning and irrigating out old clotted blood. The majority was in the right upper quadrant although some was in the pelvis. There was about 1000 cc total. The pelvis as well as the upper abdomen was completely irrigated and suctioned till irrigant was clear. There is no obvious source of the bleeding although there was a fair amount of clotted blood in the gallbladder fossa suggestive of a gallbladder fossa bleed. Again currently no active bleeding. A 19 round Evaristo drain was placed into the right upper quadrant brought out through the trocar site secured the skin using 2-0 silk. The trochars were all removed under direct vision. The fascia of the camera port was closed using 0 Vicryl in [id number] fashion. Wounds were all irrigated and closed using 4-0 Monocryl. Marcaine with epinephrine were injected around them for postoperative analgesia and skin glue used as dressing. Patient was awakened extubated transferred recovery in stable condition. My physician floor covering printer assistant was present through the entire case. He was instrumental in assisting with suctioning irrigating running the camera etc. I attest to the content of the Intraoperative Record and any orders documented therein. Any exceptions are noted below.
[2021-10-27] MEDS ORDERED: SODIUM CHLORIDE 0.9% 50 ML BAG ONE (12:52)
[2021-10-27] MEDS ORDERED: PROMETHAZINE HCL INJ 25 MG/ML 1 ML VIAL ONE (12:53)
--- NOTE | 2021-10-27 13:31 | Anesthesiology Progress Note ---
Date of Service October 27, 2021 Anesthesia Post Procedure Vital Signs Vital Signs: Temp Pulse Pulse Resp BP BP Pulse Ox 10/27/21 13:15 37 C 98 H 14 147/77 H 96 10/27/21 13:00 36.3 C L 95 H 12 142/72 H 96 10/27/21 12:30 36.3 C L 90 13 141/74 H 100 10/27/21 12:50 36.3 C L 97 H 17 147/71 H 97 10/27/21 12:40 36.3 C L 93 H 18 151/68 H 98 10/27/21 12:20 36.3 C L 95 H 16 155/81 H 100 10/27/21 12:11 36.3 C L 100 H 15 161/69 H 100 10/27/21 09:59 36.8 C 97 H 16 123/78 99 10/27/21 07:09 36.9 C 101 H 16 130/69 97 10/26/21 22:23 36.7 C 116 H 18 123/69 96 10/26/21 14:43 36.7 C 108 H 16 127/77 96 O2 Del Method O2 Flow Rate 10/27/21 13:15 Room Air 10/27/21 13:00 Room Air 10/27/21 12:30 Oxymask 3 10/27/21 12:50 Room Air 10/27/21 12:40 Room Air 10/27/21 12:20 Oxymask 3 10/27/21 12:11 Oxymask 5 10/27/21 09:59 Room Air 10/27/21 07:09 Room Air 10/26/21 22:23 Room Air 10/26/21 14:43 Room Air Pain Intensity Abdomen: Pain Intensity: 0 Transfer of Care Handoff Completed per policy Notes Mental Status: alert / awake / arousable and participated in evaluation Patient Amnestic to Procedure: Yes Nausea / Vomiting: adequately controlled Pain: adequately controlled Airway Patency, RR, SpO2: stable & adequate BP & HR: stable & adequate Hydration State: stable & adequate Anesthetic Complications: no major complications apparent
[2021-10-27] MEDS: HYDROmorphone INJ 0.5 MG/0.5 ML SYR IV PRN ×3 (16:38→21:16)
[2021-10-27] MEDS: ONDANSETRON INJ 2 MG/ML 2 ML VIAL IV PRN (16:44)
--- NOTE | 2021-10-27 18:11 | Hospitalist Progress Note ---
Date of Service October 27, 2021 Assessment & Plan (1) Volvulus of small intestine: Plan: Small bowel obstruction cholecystitis status post laparoscopic cholecystectomy, no defined bowel obstruction identified post op anemia, taken back to OR 10/[address] imaging fluid collection around liver found to have old blood in gall bladder fossa 2 u prbc Famotidine 20 mg IV every 12 hours Surgery advanced diet Patient did have MRCP on 10/14/2021 which showed pancreatic head and body edema, with no signs of stones or obstruction General surgery consult performed laparoscopic cholecystectomy 10/25/2021 no defined transition point was seen in her small bowel to explain the CT findings on presentation (2) Enteritis: Plan: See above (3) Acute pancreatitis: Plan: Was admitted from 10/14-10/18/2021 for pancreatitis (4) Urge and stress incontinence: Plan: Resume her usual medications (5) MDD (major depressive disorder): Plan: Resume usual medications with NG tube removed (6) NEL (generalized anxiety disorder): Plan: Placed on lorazepam 0.5 mg IV every 6 hours as needed (7) Urinary retention: Plan: Follow urine output following IV fluids (8) Nausea & vomiting: Plan: Zofran IV as noted above (9) Postoperative anemia: Plan: taken to or, evacuated 1000ml blood, transfused 2 units Admission and Anticipated Discharge Date Admission Date: October 24, 2021 Subjective pt was taken to the OR and found a gall bladder fossa bleed. she was also transfused 2 units Review of Systems Review of Systems: Moderate distress and fatigue no headache, no visual changes no speech or swallowing issues no chest pain, pressure or palpitations no shortness of breath, cough or wheezes Right lower quadrant abdominal pain, no nausea or vomiting mild discomfort with rebound testing no dysuria, hematuria or frequency no focal joint pain or swelling no back pain, CVA tenderness or radicular pain no bruising, bleeding or rashes no focal signs of weakness or numbness or altered sensation no complaints of anxiety or depression.. Physical Exam Physical Exam: The patient appeared well nourished and normally developed. Vital signs as documented. Head exam is normocephalic atraumatic Neck is without JVD, thyromegaly, or carotid bruits. Lungs are clear to auscultation, no focal loss of breath sounds Cardiac exam, Rhythm is tachycardic.. No murmurs, rubs or gallops. Abdominal exam reveals hypoactive bowel sounds, soft tender mostly in the lower quadrants some mild rebound type changes Extremities are nonedematous and both pedal pulses are present Neurologic exam is alert and oriented, no focal loss of strength or sensation Skin is without bruises or rashes Psychologically is without concerns for anxiety or depression.. Results & Data Results & Data ([facility]) Vital Signs (Past 12 Hours) Vital Signs Temp Pulse Pulse Resp BP BP Pulse Ox 10/27/21 16:00 98.2 F 99 H 16 128/58 L 98 10/27/21 14:26 98.2 F 98 H 16 147/78 H 100 10/27/21 13:43 98.4 F 103 H 14 147/79 H 96 10/27/21 13:15 98.6 F 98 H 14 147/77 H 96 10/27/21 13:00 97.3 F L 95 H 12 142/72 H 96 10/27/21 12:30 97.3 F L 90 13 141/74 H 100 10/27/21 12:50 97.3 F L 97 H 17 147/71 H 97 10/27/21 12:40 97.3 F L 93 H 18 151/68 H 98 10/27/21 12:20 97.3 F L 95 H 16 155/81 H 100 10/27/21 12:11 97.3 F L 100 H 15 161/69 H 100 10/27/21 09:59 98.2 F 97 H 16 123/78 99 10/27/21 07:09 98.4 F 101 H 16 130/69 97 O2 Del Method O2 Flow Rate 10/27/21 16:00 Room Air 10/27/21 14:26 Room Air 10/27/21 13:43 Room Air 10/27/21 13:15 Room Air 10/27/21 13:00 Room Air 10/27/21 12:30 Oxymask 3 10/27/21 12:50 Room Air 10/27/21 12:40 Room Air 10/27/21 12:20 Oxymask 3 10/27/21 12:11 Oxymask 5 10/27/21 09:59 Room Air 10/27/21 07:09 Room Air PG Care Time/CCT Total # of Minutes Spent Total Time Spent with Patient: Total time spent is greater than 50% in coordination of care (as documented) at patient's floor/unit and/or counseling patient: Coding Level of Care Code 71072 Subseq Hosp Care Lvl 3 Diagnoses Volvulus of small intestine K56.2 Enteritis K52.9 Acute pancreatitis K85.80 Acute pancreatitis complication: unspecified Pancreatitis type: other Urge and stress incontinence N39.46 MDD (major depressive disorder) F32.9 NEL (generalized anxiety disorder) F41.1 Urinary retention R33.9 Nausea & vomiting R11.2 Vomiting type: unspecified Postoperative anemia D64.9 (1) Acute pancreatitis Acute pancreatitis complication: unspecified Pancreatitis type: other Qualified Code(s): K85.80 - Other acute pancreatitis without necrosis or infection (2) Nausea & vomiting Vomiting type: unspecified Qualified Code(s): R11.2 - Nausea with vomiting, unspecified
[2021-10-27 19:34] LABS: Hematocrit (blood only) 22.5 % (34.1-44.9); Hemoglobin 7.4 g/dl (12.0-16.0)
[2021-10-28] MEDS: LORazepam 0.5 MG in SYRINGE 0.25 ML IV SCH ×4 (00:27→17:51)
[2021-10-28] MEDS: HYDROmorphone INJ 0.5 MG/0.5 ML SYR IV PRN ×7 (00:39→21:47)
[2021-10-28] MEDS: LACTATED RINGER'S 1,000 ML IV SCH (02:54)
[2021-10-28] MEDS: FAMOTIDINE 20 MG in SYRINGE 3 ML IV SCH ×2 (04:04→12:29)
[2021-10-28] MEDS ORDERED: oxyCODONE/ACETAMINOPHEN 5mg/325mg TAB PO PRN (07:35)
[2021-10-28 07:44] LABS: Hematocrit (blood only) 21.9 % (34.1-44.9)
[2021-10-28 08:17] LABS: BUN Creatinine Ratio 10.2 (10-20); Calcium 8.1 mg/dl (8.5-10.1); Est GFR (African American) 130.7 ml/min; Est GFR (Non-African American) 112.8 ml/min; Potassium 3.2 mmol/L (3.5-5.1)
[2021-10-28] MEDS: oxyCODONE/ACETAMINOPHEN 5mg/325mg TAB PO PRN ×3 (09:46→20:05)
[2021-10-28] MEDS ORDERED: POTASSIUM CHLORIDE CRTAB 20 MEQ TABCR PO STA (10:03)
[2021-10-28] MEDS ORDERED: K DUR 20 MEQ PO ONE (10:05)
--- NOTE | 2021-10-28 10:22 | Surgery Progress Note ---
Date of Service October 28, 2021 Assessment & Plan (1) Post-operative haemorrhage: Plan: pt is a 51 year-old female who had lap lonnie on10/25/2021, then took pt back to OR for port-op bleeding on 10/27/2021, POD 1, pt had one unit RBC transfusion at OR, IMP: post-op bleeding, plan, pt is table, VVS, normal HR and BP, no dizziness, H/H 11/02.9, continue conservative treatment, low K, 20 MEQ Kdur po, repeat labs in morning, I informed pt , pt may need blood transfusion if HbG < 6, or pt develops HR > 100, or low BP,100, pt understood, I answered all questions, Admission and Anticipated Discharge Date Admission Date: October 24, 2021 Subjective pt was taken to the OR and found a gall bladder fossa bleed. she was also transfused 2 units 10/28/2021 10:19AM Dr. Mcgowan, F/U S/P lap lonnie, post-op bleeding, took back or yesterday, pt is stable, no fever, no dizziness, some abdominal pain good control with pain meds, Vital signs stable, HR 85, BP 139/68, T 37, RR 16, today H/H 721.9, yesterday, H/H 7.4/22.5, YENNI drainage 285ml/20h, bloody color, Physical Exam Constitutional: WD/WN, vitals as above no distress Eyes: PERRL, conjunctivae normal, anicteric sclerae Neck: trachea midline, no thyromegaly Respiratory: normal respiratory effort, lungs clear to auscultation Cardiovascular: RRR, no murmur, no edema Gastrointestinal (Abdomen): soft, mild tenderness at incision site,no rebound pain, no distend, BS + Musculoskeletal: no cyanosis or clubbing, extremities motor strength 5/5 Neurologic: patellar DTR's 2+ bilat, sensation intact Psychiatric: A+Ox3, euthymic affect Results & Data ([facility]) Vital Signs (Past 12 Hours) Vital Signs Temp Pulse Resp BP Pulse Ox O2 Del Method 10/28/21 07:14 37.0 C 85 16 139/68 98 Room Air 10/28/21 03:01 99 H 16 147/79 H 99 Room Air Laboratory Results Abnormal lab results 10/26/21 10/27/21 10/28/21 Range/Units 09:11 19:22 07:05 Hgb 7.4 L 7.0 L (12.0-16.0) g/dl Hct 22.5 L 21.9 L (34.1-44.9) % Potassium (3.5-5.1) mmol/L Chloride (98-107) mmol/L BUN (6-23) mg/dl Creatinine (0.6-1.2) mg/dl Calcium (8.5-10.1) mg/dl Crossmatch See Detail 10/28/21 Range/Units 07:05 Hgb (12.0-16.0) g/dl Hct (34.1-44.9) % Potassium 3.2 L (3.5-5.1) mmol/L Chloride 109 H (98-107) mmol/L BUN 5 L (6-23) mg/dl Creatinine 0.49 L (0.6-1.2) mg/dl Calcium 8.1 L (8.5-10.1) mg/dl Crossmatch
[2021-10-28] MEDS ORDERED: SODIUM CHLORIDE 0.9% 250 ML IV PRN (15:12)
--- NOTE | 2021-10-28 15:15 | Hospitalist Progress Note ---
Date of Service October 28, 2021 Assessment & Plan (1) Volvulus of small intestine: Plan: Small bowel obstruction cholecystitis status post laparoscopic cholecystectomy, no defined bowel obstruction identified post op anemia, taken back to OR 10/[address] imaging fluid collection around liver found to have old blood in gall bladder fossa 2 u prbc total transfusion Famotidine 20 mg IV every 12 hours still requiring parenteral opiates Tolerating advanced diet Patient did have MRCP on 10/14/2021 which showed pancreatic head and body edema, with no signs of stones or obstruction General surgery consult performed laparoscopic cholecystectomy 10/25/2021 no defined transition point was seen in her small bowel to explain the CT findings on presentation (2) Enteritis: Plan: See above (3) Acute pancreatitis: Plan: Was admitted from 10/14-10/18/2021 for pancreatitis (4) Urge and stress incontinence: Plan: Resume her usual medications (5) MDD (major depressive disorder): Plan: Resume usual medications with NG tube removed (6) NEL (generalized anxiety disorder): Plan: Placed on lorazepam 0.5 mg IV every 6 hours as needed (7) Urinary retention: Plan: Follow urine output following IV fluids (8) Nausea & vomiting: Plan: Zofran IV as noted above (9) Postoperative anemia: Plan: taken to or, evacuated 1000ml blood, transfused 2 units Admission and Anticipated Discharge Date Admission Date: October 24, 2021 Subjective pt is improved tolerating regular diet still requiring parenteral opiates hgb 7 only got 1 unit intra op, additional unit ordered for symptomatic anemia, post op acute blood loss anemia Review of Systems Review of Systems: Moderate distress and fatigue, GERARDO, pale lips and conjunctiva no headache, no visual changes no speech or swallowing issues no chest pain, pressure or palpitations no shortness of breath, cough or wheezes Right lower quadrant abdominal pain, improving no dysuria, hematuria or frequency no focal joint pain or swelling no back pain, CVA tenderness or radicular pain no bruising, bleeding or rashes no focal signs of weakness or numbness or altered sensation no complaints of anxiety or depression.. Physical Exam Physical Exam: The patient appeared well nourished and normally developed. Vital signs as documented. Head exam is normocephalic atraumatic Neck is without JVD, thyromegaly, or carotid bruits. Lungs are clear to auscultation, no focal loss of breath sounds Cardiac exam, Rhythm is tachycardic.. No murmurs, rubs or gallops. Abdominal exam reveals normoactive bowel sounds, soft improving tenderness Extremities are nonedematous and both pedal pulses are present Neurologic exam is alert and oriented, no focal loss of strength or sensation Skin is without bruises or rashes Psychologically is without concerns for anxiety or depression.. Results & Data Results & Data ([facility]) Vital Signs (Past 12 Hours) Vital Signs Temp Pulse Resp BP Pulse Ox O2 Del Method 10/28/21 07:14 98.6 F 85 16 139/68 98 Room Air PG Care Time/CCT Total # of Minutes Spent Total Time Spent with Patient: Total time spent is greater than 50% in coordination of care (as documented) at patient's floor/unit and/or counseling patient: Coding Level of Care Code 18543 Subseq Hosp Care Lvl 2 Diagnoses Volvulus of small intestine K56.2 Enteritis K52.9 Acute pancreatitis K85.80 Acute pancreatitis complication: unspecified Pancreatitis type: other Urge and stress incontinence N39.46 MDD (major depressive disorder) F32.9 NEL (generalized anxiety disorder) F41.1 Urinary retention R33.9 Nausea & vomiting R11.2 Vomiting type: unspecified Postoperative anemia D64.9 (1) Nausea & vomiting Vomiting type: unspecified Qualified Code(s): R11.2 - Nausea with vomiting, unspecified (2) Acute pancreatitis Acute pancreatitis complication: unspecified Pancreatitis type: other Qualified Code(s): K85.80 - Other acute pancreatitis without necrosis or infection
[2021-10-29] MEDS: LORazepam 0.5 MG in SYRINGE 0.25 ML IV SCH ×5 (00:34→23:54)
[2021-10-29] MEDS: FAMOTIDINE 20 MG in SYRINGE 3 ML IV SCH ×2 (00:37→14:45)
[2021-10-29] MEDS: HYDROmorphone INJ 0.5 MG/0.5 ML SYR IV PRN ×9 (00:37→23:16)
[2021-10-29 07:23] LABS: Hematocrit (blood only) 29.1 % (34.1-44.9); Hemoglobin 9.6 g/dl (12.0-16.0)
[2021-10-29] MEDS: oxyCODONE/ACETAMINOPHEN 5mg/325mg TAB PO PRN (09:29)
[2021-10-29] MEDS: GABAPENTIN 400 MG CAP PO SCH ×2 (11:14→20:33)
--- NOTE | 2021-10-29 11:58 | Surgery Progress Note ---
Date of Service October 29, 2021 Assessment & Plan (1) Post-operative haemorrhage: Plan: pt is a 51 year-old female who had lap lonnie on10/25/2021, then took pt back to OR for port-op bleeding on 10/27/2021, POD 1, pt had one unit RBC transfusion at OR, IMP: post-op bleeding, plan, pt is table, VVS, normal HR and BP, no dizziness, H/H 11/02.9, continue conservative treatment, low K, 20 MEQ Kdur po, repeat labs in morning, I informed pt , pt may need blood transfusion if HbG < 6, or pt develops HR > 100, or low BP,100, pt understood, I answered all questions, 10/29/2021 11:57AM doing better, continue conservative treatment, will F/U Admission and Anticipated Discharge Date Admission Date: October 24, 2021 Subjective pt is improved tolerating regular diet still requiring parenteral opiates hgb 7 only got 1 unit intra op, additional unit ordered for symptomatic anemia, post op acute blood loss anemia 10/29/2021 11:54AM, DR. Mcgowan pt had one unit RBC yesterday, pt feels better, no significant abdominal pain, YENNI 350, less bloody, no fever, Hgb 9.5 Physical Exam Constitutional: WD/WN, vitals as above Eyes: PERRL, conjunctivae normal, anicteric sclerae Neck: trachea midline, no thyromegaly Respiratory: normal respiratory effort, lungs clear to auscultation Cardiovascular: RRR, no murmur, no edema Gastrointestinal (Abdomen): soft, mild tenderness at right side adomen, no rebound pain, YENNI intact, BS + Musculoskeletal: no cyanosis or clubbing, extremities motor strength 5/5 Neurologic: patellar DTR's 2+ bilat, sensation intact Psychiatric: A+Ox3, euthymic affect Results & Data ([facility]) Vital Signs (Past 12 Hours) Vital Signs Temp Resp BP Pulse Ox O2 Del Method 10/29/21 07:24 36.8 C 16 156/83 H 98 Room Air
[2021-10-29] MEDS: oxyCODONE HCL IR 5 MG TAB (IMMEDIATE RELEASE) PO PRN ×3 (14:44→21:36)
--- NOTE | 2021-10-29 17:12 | Hospitalist Progress Note ---
Date of Service October 29, 2021 Assessment & Plan (1) Volvulus of small intestine: Plan: Small bowel obstruction suspected on admission, ruled out by surgery exlap revealed cholecystitis status post laparoscopic cholecystectomy, no defined bowel obstruction identified post op anemia, taken back to OR 10/[address] imaging fluid collection around liver found to have old blood in gall bladder fossa continues with YENNI drainage 2 u prbc total transfusion Famotidine 20 mg IV every 12 hours still requiring parenteral opiates Tolerating advanced diet Patient did have MRCP on 10/14/2021 which showed pancreatic head and body edema, with no signs of stones or obstruction General surgery consult performed laparoscopic cholecystectomy 10/25/2021 no defined transition point was seen in her small bowel to explain the CT findings on presentation (2) Enteritis: Plan: See above (3) Acute pancreatitis: Plan: Was admitted from 10/14-10/18/2021 for pancreatitis (4) Urge and stress incontinence: Plan: Resume her usual medications (5) MDD (major depressive disorder): Plan: Resume usual medications with NG tube removed (6) NEL (generalized anxiety disorder): Plan: Placed on lorazepam 0.5 mg IV every 6 hours as needed (7) Urinary retention: Plan: Follow urine output following IV fluids (8) Nausea & vomiting: Plan: Zofran IV as noted above (9) Postoperative anemia: Plan: taken to or, evacuated 1000ml blood, transfused 2 units Admission and Anticipated Discharge Date Admission Date: October 24, 2021 Subjective pt still has abdominal pain and YENNI drain is still with good output hgb has augmented with transfusion Review of Systems Review of Systems: less distress and fatigue no headache, no visual changes no speech or swallowing issues no chest pain, pressure or palpitations no shortness of breath, cough or wheezes diffuse lower quadrant abdominal pain, improving no dysuria, hematuria or frequency no focal joint pain or swelling no back pain, CVA tenderness or radicular pain no bruising, bleeding or rashes no focal signs of weakness or numbness or altered sensation no complaints of anxiety or depression.. Physical Exam Physical Exam: The patient appeared well nourished and normally developed. Vital signs as documented. Head exam is normocephalic atraumatic Neck is without JVD, thyromegaly, or carotid bruits. Lungs are clear to auscultation, no focal loss of breath sounds Cardiac exam, Rhythm is tachycardic.. No murmurs, rubs or gallops. Abdominal exam reveals normoactive bowel sounds, soft improving tenderness Extremities are nonedematous and both pedal pulses are present Neurologic exam is alert and oriented, no focal loss of strength or sensation Skin is without bruises or rashes Psychologically is without concerns for anxiety or depression.. Results & Data Results & Data ([facility]) Vital Signs (Past 12 Hours) Vital Signs Temp Pulse Resp BP Pulse Ox O2 Del Method 10/29/21 14:27 98.4 F 60 16 155/79 H 95 Room Air 10/29/21 07:24 98.2 F 16 156/83 H 98 Room Air PG Care Time/CCT Total # of Minutes Spent Total Time Spent with Patient: Total time spent is greater than 50% in coordination of care (as documented) at patient's floor/unit and/or counseling patient: Coding Level of Care Code 14345 Subseq Hosp Care Lvl 2 Diagnoses Volvulus of small intestine K56.2 Enteritis K52.9 Acute pancreatitis K85.80 Acute pancreatitis complication: unspecified Pancreatitis type: other Urge and stress incontinence N39.46 MDD (major depressive disorder) F32.9 NEL (generalized anxiety disorder) F41.1 Urinary retention R33.9 Nausea & vomiting R11.2 Vomiting type: unspecified Postoperative anemia D64.9 (1) Acute pancreatitis Acute pancreatitis complication: unspecified Pancreatitis type: other Qualified Code(s): K85.80 - Other acute pancreatitis without necrosis or infection (2) Nausea & vomiting Vomiting type: unspecified Qualified Code(s): R11.2 - Nausea with vomiting, unspecified
[2021-10-29] MEDS: ACETAMINOPHEN 500 MG TAB PO PRN (21:36)
[2021-10-30] MEDS: FAMOTIDINE 20 MG in SYRINGE 3 ML IV SCH ×2 (01:34→11:41)
[2021-10-30] MEDS: oxyCODONE HCL IR 5 MG TAB (IMMEDIATE RELEASE) PO PRN ×6 (01:34→20:11)
[2021-10-30] MEDS: HYDROmorphone INJ 0.5 MG/0.5 ML SYR IV PRN ×5 (03:36→23:28)
[2021-10-30] MEDS: ACETAMINOPHEN 500 MG TAB PO PRN ×2 (04:21→17:24)
[2021-10-30] MEDS: LORazepam 0.5 MG in SYRINGE 0.25 ML IV SCH ×3 (05:55→16:12)
[2021-10-30] MEDS: GABAPENTIN 400 MG CAP PO SCH ×2 (07:59→20:09)
--- NOTE | 2021-10-30 08:33 | Surgery Progress Note ---
Date of Service October 30, 2021 Assessment & Plan (1) Post-operative haemorrhage: Plan: POD 3/4 lap lonnie/washout labs pending if H&H remains stable would consider d/c with drain to be removed on Saturday seen with dr. Wood Admission and Anticipated Discharge Date Admission Date: October 24, 2021 Subjective tolerating diet, some incisional soreness Physical Exam Gastrointestinal (Abdomen): Inspection/Auscultation: + abdominal surgical drain present (60-100 cc per shift); abdomen not distended Percussion/Palpation: abdomen soft Results & Data ([facility]) Vital Signs (Past 12 Hours) Vital Signs Temp Pulse Resp BP Pulse Ox O2 Del Method 10/30/21 07:10 36.5 C 87 16 155/90 H 97 Room Air 10/29/21 22:15 37.1 C 75 16 149/85 H 98 Room Air PG Care Time/CCT Total # of Minutes Spent Total Time Spent with Patient: Total time spent is greater than 50% in coordination of care (as documented) at patient's floor/unit and/or counseling patient: Coding Level of Care Code None Diagnoses Post-operative haemorrhage
[2021-10-30 09:21] LABS: Hematocrit (blood only) 32.5 % (34.1-44.9); Hemoglobin 10.8 g/dl (12.0-16.0); Mean Corpuscular Hemoglobin 31.7 pg (25.0-34.0); Mean Corpuscular Hgb Conc 33.2 g/dL (32.0-36.0); Mean Corpuscular Volume 95.3 fL (80.0-100.0); Mean Platelet Volume 8.7 fL (9.4-12.3); Platelet Count 716 K/uL (130-400); RDW Standard Deviation 62.8 fL (36.4-46.3); Red Blood Count 3.41 M/uL (3.93-5.22); White Blood Count 8.93 K/ul (4.8-10.8)
[2021-10-30 09:49] LABS: Albumin Globulin Ratio 1.5 (0.9-2); Albumin Level 3.6 gm/dl (3.4-5.0); BUN Creatinine Ratio 7.8 (10-20); Bilirubin,Total 0.4 mg/dl (0.2-1.0); Calcium 8.7 mg/dl (8.5-10.1); Creatinine Clr Calc Pharmacy 108.7 ml/min; Est GFR (African American) 119.7 ml/min; Est GFR (Non-African American) 103.3 ml/min; Globulin 2.4 gm/dl (2.5-4.0); Potassium 3.3 mmol/L (3.5-5.1)
[2021-10-30] MEDS: POTASSIUM CHLORIDE CRTAB 20 MEQ TABCR PO SCH ×2 (11:41→20:10)
--- NOTE | 2021-10-30 16:12 | Hospitalist Progress Note ---
Date of Service October 30, 2021 Assessment & Plan (1) Volvulus of small intestine: Plan: Small bowel obstruction suspected on admission, ruled out by surgery exlap revealed cholecystitis status post laparoscopic cholecystectomy, no defined bowel obstruction identified post op anemia, taken back to OR 10/[address] imaging fluid collection around liver found to have old blood in gall bladder fossa continues with YENNI drainage 2 u prbc total transfusion still requiring parenteral opiates Tolerating advanced diet Patient did have MRCP on 10/14/2021 which showed pancreatic head and body edema, with no signs of stones or obstruction General surgery consult performed laparoscopic cholecystectomy 10/25/2021 no defined transition point was seen in her small bowel to explain the CT findings on presentation (2) Enteritis: Plan: See above (3) Acute pancreatitis: Plan: Was admitted from 10/14-10/18/2021 for pancreatitis no pancreatitis during this stay (4) Urge and stress incontinence: Plan: Resume her usual medications (5) MDD (major depressive disorder): Plan: Resume usual medications with NG tube removed (6) NEL (generalized anxiety disorder): Plan: Placed on lorazepam 0.5 mg IV every 6 hours as needed (7) Urinary retention: Plan: Follow urine output following IV fluids (8) Nausea & vomiting: Plan: Zofran IV as noted above (9) Postoperative anemia: Plan: taken to or, evacuated 1000ml blood, transfused 2 units anemia has been stable despite YENNI drainage Admission and Anticipated Discharge Date Admission Date: October 24, 2021 Subjective pt has improved hgb persistent r shoulder pain ? refered pain still with YENNI drainage improving stomach pain Review of Systems Review of Systems: less distress and fatigue no headache, no visual changes no speech or swallowing issues no chest pain, pressure or palpitations no shortness of breath, cough or wheezes diffuse lower quadrant abdominal pain, continues improving no dysuria, hematuria or frequency no focal joint pain or swelling no back pain, CVA tenderness or radicular pain no bruising, bleeding or rashes no focal signs of weakness or numbness or altered sensation no complaints of anxiety or depression.. Physical Exam Physical Exam: The patient appeared well nourished and normally developed. Vital signs as documented. Head exam is normocephalic atraumatic Neck is without JVD, thyromegaly, or carotid bruits. Lungs are clear to auscultation, no focal loss of breath sounds Cardiac exam, Rhythm is tachycardic.. No murmurs, rubs or gallops. Abdominal exam reveals normoactive bowel sounds, soft improving tenderness Extremities are nonedematous and both pedal pulses are present Neurologic exam is alert and oriented, no focal loss of strength or sensation Skin is without bruises or rashes Psychologically is without concerns for anxiety or depression.. Results & Data Results & Data ([facility]) Vital Signs (Past 12 Hours) Vital Signs Temp Pulse Resp BP Pulse Ox O2 Del Method 10/30/21 14:47 98.2 F 92 H 14 155/84 H 99 Room Air 10/30/21 07:10 97.7 F 87 16 155/90 H 97 Room Air PG Care Time/CCT Total # of Minutes Spent Total Time Spent with Patient: Total time spent is greater than 50% in coordination of care (as documented) at patient's floor/unit and/or counseling patient: Coding Level of Care Code 82688 Subseq Hosp Care Lvl 2 Diagnoses Volvulus of small intestine K56.2 Enteritis K52.9 Acute pancreatitis K85.80 Acute pancreatitis complication: unspecified Pancreatitis type: other Urge and stress incontinence N39.46 MDD (major depressive disorder) F32.9 NEL (generalized anxiety disorder) F41.1 Urinary retention R33.9 Nausea & vomiting R11.2 Vomiting type: unspecified Postoperative anemia D64.9 (1) Nausea & vomiting Vomiting type: unspecified Qualified Code(s): R11.2 - Nausea with vomiting, unspecified (2) Acute pancreatitis Acute pancreatitis complication: unspecified Pancreatitis type: other Qualified Code(s): K85.80 - Other acute pancreatitis without necrosis or infection
[2021-10-31] MEDS: LORazepam 0.5 MG in SYRINGE 0.25 ML IV SCH ×3 (00:28→13:01)
[2021-10-31] MEDS: oxyCODONE HCL IR 5 MG TAB (IMMEDIATE RELEASE) PO PRN ×3 (01:28→13:02)
[2021-10-31] MEDS: ACETAMINOPHEN 500 MG TAB PO PRN (01:31)
[2021-10-31] MEDS: FAMOTIDINE 20 MG in SYRINGE 3 ML IV SCH (01:54)
[2021-10-31] MEDS: HYDROmorphone INJ 0.5 MG/0.5 ML SYR IV PRN ×2 (08:57→15:01)
[2021-10-31] MEDS: GABAPENTIN 400 MG CAP PO SCH (09:00)
[2021-10-31] MEDS: POTASSIUM CHLORIDE CRTAB 20 MEQ TABCR PO SCH (09:00)
--- NOTE | 2021-10-31 09:17 | Surgery Progress Note ---
Date of Service October 31, 2021 Assessment & Plan (1) S/P laparoscopic cholecystectomy: Plan: POD 4/5 lap lonnie/washout Hbg yesterday stable at 10.8. Doing well today Diet as tolerates Will check on YENNI drain output this around lunch time, if remains minimal will plan on removing. Otherwise can be dispo'd with drain and f/u in clinic with Dr. Wood on saturday for removal Okay for discharge to home from our standpoint today. Does not have a ride until later (2) Post-operative haemorrhage: Admission and Anticipated Discharge Date Admission Date: October 24, 2021 Subjective Patient offers no complaints. Tolerating diet. Physical Exam Physical Exam: awake/alert, no distress Gastrointestinal (Abdomen): Inspection/Auscultation: + abdominal surgical incision (c/d/i) and + abdominal surgical drain present (sangeneous output in YENNI, minimal output this AM) Percussion/Palpation: abdomen soft Results & Data ([facility]) Vital Signs (Past 12 Hours) Vital Signs Temp Pulse Resp BP Pulse Ox O2 Del Method 10/31/21 07:25 36.7 C 103 H 16 145/86 H 94 Room Air 10/30/21 23:00 36.6 C 101 H 16 159/81 H 98 Room Air PG Care Time/CCT Total # of Minutes Spent Total Time Spent with Patient: Total time spent is greater than 50% in coordination of care (as documented) at patient's floor/unit and/or counseling patient: Coding Level of Care Code None Diagnoses S/P laparoscopic cholecystectomy Z90.49 Post-operative haemorrhage
--- NOTE | 2021-10-31 16:59 | Discharge Summary ---
Date of Service October 31, 2021 Admission HPI Per Admitting Provider The patient is a 51-year-old female most recently admitted to [facility] from 10/14-10/18/2021 where she was treated for acute pancreatitis, gastritis, NEL, MDD, hypokalemia, hypomagnesemia. She reports that she commonly has nausea and vomiting, however, she has developed significant epigastric and right upper quadrant abdominal pain which has been postrecovery the ED for assessment. CT scan of abdomen pelvis showed dilated small bowel loops that were fluid- filled, with concerns regarding possible volvulus. Gallbladder ultrasound showed fatty liver, with common bile duct dilatation 1.1 cm. Patient did have NG tube placed to low intermittent suction while in ED. From the ED she also received the following: Zofran 4 mg IV, normal saline 1 L, morphine sulfate 4 mg IV, Toradol 30 mg IV and Dilaudid 1 mg IV. Principal Diagnosis choledocholithiasis cholecystectomy acute blood loss anemia post operative pain Discharge Exam The patient appeared stable Vital signs as documented. Lungs are clear to auscultation and appear unlabored Cardiac exam, Rhythm is regular.. No murmurs, rubs or gallops. Abdominal exam reveals normal bowel sounds, soft mildly tender, drain is removed, Extremities are nonedematous and both pedal pulses are normal. Neurologic exam is alert and oriented, no focal loss of strength or sensation Skin is with bruises Psychologically is without concerns for anxiety or depression. Discharge Data Allergies Allergy/AdvReac Type Severity Reaction Status Date / Time rizatriptan Allergy Severe Difficulty Verified 10/25/21 00:43 Breathing benzoin Allergy Unknown USED TO Verified 10/25/21 00:43 PUT UNDER STERI STRIPS TO KEEP THEM ON -- BLISTERS tramadol AdvReac Mild N/V Verified 10/25/21 00:43 Consultations 10/24/21 23:06 Consult General Surgery Stat ED Decision to Admit Stat Procedures Performed Operation Date: 10/25/21 08:20 Actual Procedures p Diagnostic Laparoscopy with Pelvic Washings(Not Applicable) - Sukumar Wood DO s Laparoscopic Cholecystectomy - Sukumar Wood DO Operation Date: 10/27/21 12:50 Actual Procedures p Laparoscopic Washout S/P Laparoscopic Cholecystectomy(Not Applicable) - Sukumar Wood DO Ordered Studies 10/24/21 20:09 CT abd pelvis IV con only Urgent US gallbladder Urgent 10/27/21 07:13 CT Abd and Pelvis [CT abd pelvis IV con only] Urgent Hospital Course (1) Volvulus of small intestine: Small bowel obstruction suspected on admission, ruled out by surgery exlap revealed cholecystitis status post laparoscopic cholecystectomy, no defined bowel obstruction identified post op anemia, taken back to OR 10/[address] imaging fluid collection around liver found to have old blood in gall bladder fossa YENNI drain removed by surgery 2 u prbc total transfusion Tolerating advanced diet Surgical follow-up as outpatient Patient did have MRCP on 10/14/2021 which showed pancreatic head and body edema, with no signs of stones or obstruction General surgery consult performed laparoscopic cholecystectomy 10/25/2021 no defined transition point was seen in her small bowel to explain the CT findings on presentation (2) Enteritis: See above (3) Acute pancreatitis: Was admitted from 10/14-10/18/2021 for pancreatitis no pancreatitis during this stay (4) Urge and stress incontinence: Resume her usual medications (5) MDD (major depressive disorder): Resume usual medications with NG tube removed (6) NEL (generalized anxiety disorder): will resume home Wellbutrin and prn clonazepam (7) Urinary retention: Follow urine output following IV fluids (8) Nausea & vomiting: (9) Postoperative anemia: taken to or, evacuated 1000ml blood, transfused 2 units anemia has been stable Total Time Total Time Spent Total Time Spent (In Minutes): It required greater than 30 minutes to prepare this patient for discharge Discharge Plan Discharge Items Patient Disposition: Home - Self-Care Reason For Visit: ENTERITIS, VOLVULUS Discharge Diagnosis: chloledolcolithiasis, s/p cholecystectomy return to or for gall bladder fossa bleed acute blood loss anemia s/p 2 units of packed red blood cells transfused Activity: As commented below Lifting: No more than 10 pounds Bathing Comment: OK to shower Exercise/Sports: Wait until after follow-up appointment Driving/Machine Use: when pain free Non-emergency contact: Surgeon Call non-emergency contact if: you have any medication questions, your pain is not controlled, you have a fever, your temperature is above 101.5 and your wound has increased redness Follow-up/Referrals: Sukumar Wood, [Surgeon] - 11/08/21 9:30 am () Leora Byrne CRNP [Primary Care Provider] - Diet: Regular Ambulatory Orders: Basic Metabolic Panel (Routine) Timeframe: 1 Week Location: Determined by Patient Ordered By: Abdullahi Lozano Attending Provider Instructions: Ok to shower over clear bandage, it is waterproof. Can remove bandage tomorrow to shower, then cover lightly with gauze or band-aid 1-2 times daily until drainage stops. when restarting your Wellbutrin (bupropion) consider taking 1/2 dose for the first two to three days before you resume your full dose caution using clonazepam and your pain medicines it was recommended not to start your BuSpar(buspirone) while on the higher dose of oxycodone Pending Studies at Discharge: No Stand-Alone Forms: [facility]P[employer], Opioid Pain Management, Smoking Cessation Medications and DC Order Prescriptions: New oxycodone 5 mg Tablet 15 mg PO Q3H PRN (Reason: post op pain) Qty: 40 0RF Continued clonazepam 1 mg tablet 1 mg PO BID PRN (Reason: Anxiety) bupropion HCl [Wellbutrin XL] 150 mg tablet extended release 24 hr 150 mg PO QAM acetaminophen [Tylenol Extra Strength] 500 mg Tablet 1,000 mg PO Q6H PRN (Reason: Pain) ibuprofen [Advil] 200 mg Tablet 400 - 600 mg PO Q6H PRN (Reason: rapp/pain) ondansetron 4 mg tablet,disintegrating 4 mg PO Q6H PRN (Reason: nausea and vomiting) Qty: 14 0RF pantoprazole 40 mg tablet,delayed release (DR/EC) 40 mg PO BID 14 Days Qty: 28 0RF gabapentin 400 mg capsule 800 mg PO BID sertraline 50 mg tablet 75 mg PO QAM Discontinued oxycodone-acetaminophen [Percocet] 7.5-325 mg tablet 1 tab PO Q8H PRN (Reason: pain) Qty: 7 0RF buspirone 10 mg Tablet 20 mg PO BID Discharge Orders: Discharge Order (Routine); Ordered 10/31/21 Ordered By: Abdullahi Kaur/Other Patient Handouts: Cholecystectomy Dc, ED Potassium-Rich Foods Admission Data Admit Date/Time: 10/24/21 23:48 Attending Provider: Abdullahi Landeros Admit Provider: Servando Dorman Primary Care Provider: Leora Byrne Other Providers: Sukumar Wood ; Servando Dorman Other Interventions: Discharge Summary Assessment (RN) Last Done: 10/31/21 13:59 Coding Level of Care Code D/C DAY MANAGEMENT >30 MINS Diagnoses Volvulus of small intestine K56.2 Enteritis K52.9 Acute pancreatitis K85.80 Acute pancreatitis complication: unspecified Pancreatitis type: other Urge and stress incontinence N39.46 MDD (major depressive disorder) F32.9 NEL (generalized anxiety disorder) F41.1 Urinary retention R33.9 Nausea & vomiting R11.2 Vomiting type: unspecified Postoperative anemia D64.9
[2021-10-31] MEDS ORDERED: FAMOTIDINE 20 MG TAB PO SCH (21:00)
== END 2021-10-31 15:15 | disposition home or self-care (01) | DRG 418 ==
LOC: ED 18:03 → 3W 23:48 → SUATTDRO 23:48 → 3W 10-25 01:47

== ENCOUNTER 2022-06-21 00:33 | Inpatient (IN) ==
--- NOTE | 2022-06-21 00:45 | Emergency Department Note ---
History of Present Illness General Chief complaint: Abdominal Pain Stated complaint: PAIN IN CHEST,PAIN IN PANCREAS AREA AND BACK,VOMIT Time Seen by Provider: 06/21/22 00:43 History of Present Illness Maximum Pain Intensity: 9 This 52-year-old female patient presents to the emergency department with her for evaluation of left-sided rib and chest pain radiating to her back, epigastric abdominal pain, nausea, vomiting, diarrhea, and decreased oral intake. She states that she has been sick for 1.5-2 weeks and the symptoms are getting progressively worse. She has a history of pancreatitis and is concerned she has pancreatitis again. She was admitted in September 2021 with pancreatitis and subsequent CCY. The pain is around her incision site from her gallbladder in the RUQ, across the epigastric area, into the LUQ, the left side of the chest and lower left ribs, and then radiates into her back. She states that symptoms feel the same as her previous pancreatitis. She states that they did not tell her the cause of the previous pancreatitis. She denies new medications pr eviously or with this episode. Denies a history of elevated triglycerides. She states that she rarely drinks any ETOH and no recent ETOH use. Has only had the one previous episode of pancreatitis per patient. No one else sick with the vomiting and diarrhea and no known ill contacts. Denies fevers. Has chest pain under her left breast and it is hard to take a deep breath at times. The patien t denies recent long car or plane rides or recent injury/trauma/surgery. Denies any personal or family history of blood clots or bleeding disorders. Denies any hormonal medication use. Denies any hemoptysis or calf pain. Home Medications Medication Instructions Recorded Confirmed Type clonazepam 1 mg tablet 1 mg PO BID PRN Anxiety 02/10/18 06/21/22 History acetaminophen 500 mg tablet 1,000 mg PO DIRECTED PRN Pain 09/19/19 06/21/22 History (Tylenol Extra Strength) bupropion HCl 150 mg 24 hr tablet, 150 mg PO QAM 09/19/19 06/21/22 History extended release (Wellbutrin XL) gabapentin 400 mg capsule 800 mg PO BID 06/26/20 06/21/22 History sertraline 50 mg tablet 75 mg PO QAM 06/26/20 06/21/22 History buspirone 10 mg tablet 20 mg PO BID 06/21/22 06/21/22 History oxycodone-acetaminophen 7.5 mg-325 1 tab PO QID PRN Pain 06/21/22 06/21/22 History mg tablet Allergies Allergy/AdvReac Type Severity Reaction Status Date / Time rizatriptan Allergy Severe Difficulty Verified 06/21/22 01:03 Breathing benzoin Allergy Intermediate USED TO Verified 06/21/22 01:03 PUT UNDER STERI STRIPS TO KEEP THEM ON -- BLISTERS tramadol AdvReac Intermediate N/V Verified 06/21/22 01:03 Past Med/Surg History Medical History Cervical disc herniation (02/18/14) Cervical radiculopathy GOOD ROM PER PT Chronic low back pain Chronic neck pain Disc degeneration, lumbar Dysuria Electrolyte abnormality NEL (generalized anxiety disorder) Hematuria Hx of migraines Hydronephrosis, right Intractable abdominal pain Lab test negative for COVID-19 virus MDD (major depressive disorder) Migraine [place]ch[place]z Osteoarthritis Peripheral neuropathy Urge and stress incontinence Urinary retention UTI (urinary tract infection) Surgical History H/O abdominal surgery (10/27/21) Laparoscopic Washout S/P Laparoscopic Cholecystectomy(Not Applicable) - Sukumar Wood, H/O hand surgery repair of hand injury due to a dog bite H/O wrist surgery History of breast biopsy History of cystoscopy History of esophagogastroduodenoscopy (EGD) History of mandibular surgery History of robot-assisted laparoscopic hysterectomy Hx of abdominal surgery (10/25/21) p Diagnostic Laparoscopy with Pelvic Washings(Not Applicable) - Sukumar Wood, DO s Laparoscopic Cholecystectomy - Sukumar Wood, Hx of cystoscopy (~08/15/20) TURBT with stent placement [facility] Hx of lumpectomy LEFT (BENIGN) S/P cervical spinal fusion C4-C5 & C5-C6. TOTAL OF 3 FUSIONS ([employer]). LIMITED RANGE TO LEFT. HAS BEEN INTUBATED SINCE. Cervical Arthroplasty C4-C5 02/18/14: MAC #3, ETT #7.0, Grade 1 View, Smooth intubation on 1st attempt S/P hardware removal CERVICAL S/P ureteral stent placement Family History Father Cardiac disorder Malignant neoplasm of colon Prostate cancer Colorectal cancer Aunt Breast cancer Denies family history of Ovarian cancer Social History Smoking Status: Never smoker Second Hand Exposure: No; Hx Alcohol Use: Yes Alcohol type: beer, wine and hard liquor Hx Substance Use: No Preferred Language: Micronesian Communication Ability: Effective Visual Impairment: No Limitations Sales Receptionist Required: No Beliefs That Will Affect Care: None marital status: Current Living Situation: Spouse Current Living Situation Comment: at home How many Children do You have: 2 Feels Safe at Home: Yes Assistive Devices: None Review of Systems See HPI for pertinent positives & negatives. Physical Exam Vital Signs Vital Signs - 24 hr 06/21/22 00:36 06/21/22 00:51 06/21/22 01:38 Temperature 36.8 C Temperature Source Temporal Artery Scan Pulse Rate 92 H 86 87 Pulse Rate [Apical] Respiratory Rate 20 18 Blood Pressure 156/84 H Blood Pressure [Right Arm] Blood Pressure Mean 108 Blood Pressure Mean [Right Arm] Pulse Oximetry 98 97 Oxygen Delivery Method Room Air Room Air Sepsis Recent Fever Within 48 Hours No Sepsis New/Unexplained Change in Mental Status No Sepsis Action Taken by Nursing No Action Required 06/21/22 01:45 06/21/22 02:51 06/21/22 04:28 Temperature Temperature Source Pulse Rate 80 86 Pulse Rate [Apical] 81 Respiratory Rate 16 16 18 Blood Pressure 175/85 H 163/82 H Blood Pressure [Right Arm] 167/100 H Blood Pressure Mean 115 109 Blood Pressure Mean [Right Arm] 122 Pulse Oximetry 98 96 96 Oxygen Delivery Method Room Air Room Air Sepsis Recent Fever Within 48 Hours Sepsis New/Unexplained Change in Mental Status Sepsis Action Taken by Nursing 06/21/22 04:55 06/21/22 05:30 Temperature Temperature Source Pulse Rate 84 82 Pulse Rate [Apical] Respiratory Rate 14 Blood Pressure 167/87 H Blood Pressure [Right Arm] Blood Pressure Mean 113 Blood Pressure Mean [Right Arm] Pulse Oximetry 98 Oxygen Delivery Method Room Air Sepsis Recent Fever Within 48 Hours Sepsis New/Unexplained Change in Mental Status Sepsis Action Taken by Nursing VITALS: Vitals are noted on the nurse's note and reviewed by myself. GENERAL: Non toxic, no acute distress, non-diaphoretic. SKIN: Capillary refill <2 sec. EYES: PERRLA. EOMI. Conjunctivae without injection, sclerae without icterus. NOSE: Patent without discharge. MOUTH: Mucous membranes moist. Uvula midline. Airway patent. NECK: Supple without nuchal rigidity. HEART: Regular rate and rhythm without murmurs gallops or rubs. LUNGS: Clear to auscultation bilaterally without wheezes, rales or rhonchi. No retractions or accessory muscle use. ABDOMEN: Positive bowel sounds x 4. Normal tympanic percussion. Soft, diffusely tender to palpation over the entire abdomen, but increased tenderness in the right upper quadrant, epigastric, and left upper quadrants. No masses or organomegaly. Thomas sign negative. No CVA tenderness. The patient does have guarding, but no rebound tenderness or rigidity. MUSCULOSKELETAL: No calf tenderness. Negative Homans' sign. NEURO: Patient was alert and oriented to person place and time. No focal neurological deficits. Course Administered Medications Sodium Chloride (Nss 1000ml) 1,000 mls @ 125 mls/hr IV .Q8H M[place] Stop: 07/21/22 05:29 Last Admin: 06/21/22 05:54 Dose: 125 mls/hr Documented By: GEETHA Discontinued Medications Hydromorphone HCl (Hydromorphone Inj 0.5 Mg/0.5 Ml Syr) 0.5 mg IV NOW STA Stop: 06/21/22 04:58 Last Admin: 06/21/22 05:00 Dose: 0.5 mg Documented By: GEETHA Sodium Chloride (Nss 1000ml) 1,000 mls @ 999 mls/hr IV .Q1H1M STA Stop: 06/21/22 01:58 Last Infusion: 06/21/22 02:46 Dose: 0 mls/hr Documented By: Admin: 06/21/22 01:36 Dose: 999 mls/hr Documented By: MARTINEZ Sodium Chloride (Nss) 500 mls @ 999 mls/hr IV .Q31M ONE Stop: 06/21/22 04:09 Last Infusion: 06/21/22 04:15 Dose: 0 mls/hr Documented By: Admin: 06/21/22 03:44 Dose: 999 mls/hr Documented By: GEETHA Ceftriaxone Sodium 1,000 mg/ (Dextrose) 50 mls @ 100 mls/hr IV NOW STA Stop: 06/21/22 05:51 Last Admin: 06/21/22 05:54 Dose: 100 mls/hr Documented By: GEETHA Ioversol (Optiray 320 500ml) 125 ml IV ONCE ONE Stop: 06/21/22 02:46 Last Admin: 06/21/22 02:46 Dose: 109 ml Documented By: [place] Ketorolac Tromethamine (Ketorolac Tromethamine 15 Mg/Ml Vial) 10 mg IV NOW STA Stop: 06/21/22 00:59 Last Admin: 06/21/22 01:36 Dose: 10 mg Documented By: MARTINEZ Morphine Sulfate (Morphine Sulfate 4 Mg/Ml 1 Ml Carp\Vial) 4 mg IV NOW STA Stop: 06/21/22 02:08 Last Admin: 06/21/22 02:15 Dose: 4 mg Documented By: MARTINEZ Morphine Sulfate (Morphine Sulfate 4 Mg/Ml 1 Ml Carp\Vial) 4 mg IV NOW STA Stop: 06/21/22 03:40 Last Admin: 06/21/22 03:43 Dose: 4 mg Documented By: GEETHA Ondansetron HCl (Ondansetron Inj 2 Mg/Ml 2 Ml Vial) 4 mg IV NOW STA Stop: 06/21/22 00:59 Last Admin: 06/21/22 01:36 Dose: 4 mg Documented By: MARTINEZ Ondansetron HCl (Ondansetron Inj 2 Mg/Ml 2 Ml Vial) 4 mg IV NOW STA Stop: 06/21/22 02:08 Last Admin: 06/21/22 02:15 Dose: 4 mg Documented By: MARTINEZ Medical Decision Making Differential Diagnosis Differential diagnosis includes MO, PE, pneumonia, hepatitis, pancreatitis, choledocholithiasis, appendicitis, kidney stone, pyelonephritis, UTI, gastritis, gastroenteritis, norovirus, abdominal abscess, perforation, abdominal aortic aneurysm, or others. Laboratory Data Attestation: I reviewed the patient's lab results. 06/21/22 01:30 06/21/22 01:30 Lab Results 06/21/22 06/21/22 06/21/22 Range/Units 01:20 01:30 01:30 WBC (4.8-10.8) K/ul RBC (4.20-5.40) M/uL Hgb (12.0-16.0) g/dl Hct (37.0-47.0) % MCV (80.0-100.0) fL MCH (25.0-34.0) pg MCHC (32.0-36.0) g/dL RDW Std Deviation (36.4-46.3) fL RDW Coeff of Angelique (11.5-14.5) % Plt Count (130-400) K/uL MPV (9.4-12.4) fL Immature Gran % (Auto) % Neut % (Auto) % Lymph % (Auto) % [place] % (Auto) % Eos % (Auto) % Baso % (Auto) % Neut # (Auto) (1.40-6.50) K/uL Lymph # (Auto) (1.2-3.4) K/uL [place] # (Auto) (0.11-0.59) K/uL Eos # (Auto) (0-0.50) K/uL Baso # (Auto) (0-0.2) K/uL Immature Gran # (Auto) (0.01-0.20) K/uL D-Dimer 2010 H* (0-500) ug/L FEU Sodium 134 L (136-145) mmol/L Potassium 3.4 L (3.5-5.1) mmol/L Chloride 100 (98-107) mmol/L Carbon Dioxide 24 (21-32) mmol/L Anion Gap 10 (3-11) BUN 18 (6-23) mg/dl Creatinine 0.68 (0.6-1.2) mg/dl Est Cr Clr Drug Dosing 97.6 ml/min Est GFR ( Amer) 116.6 ml/min Est GFR (Non-Af Amer) 100.6 ml/min BUN/Creatinine Ratio 26.5 H (10-20) Glucose 119 H (70-99(Fasting)) mg/dl Calcium 8.7 (8.5-10.1) mg/dl Total Bilirubin 0.8 (0.2-1.0) mg/dl AST 155 H (13-39) U/L ALT 88 H (7-52) U/L Alkaline Phosphatase 182 H (34-104) U/L Troponin I High Sens 4.7 (0-14) pg/ml Total Protein 6.5 (6.0-8.3) gm/dl Albumin 4.2 (3.4-5.0) gm/dl Globulin 2.3 L (2.5-4.0) gm/dl Albumin/Globulin Ratio 1.8 (0.9-2) Amylase 111 (25-115) U/L Lipase 164 H (11-82) U/L Urine Color Urine Appearance (Clear) Urine pH (4.5-7.5) Ur Specific [place] (1.000-1.030) Urine Protein (Negative) Urine Glucose (UA) (Negative) Urine Ketones (Negative) Urine Blood (Negative) Urine Nitrite (Negative) Urine Bilirubin (Negative) Urine Urobilinogen (Negative) Ur Leukocyte Esterase (Negative) Urine WBC (Auto) (0-5) /hpf Urine RBC (Auto) (0-4) /hpf U Hyaline Cast (Auto) (0-5) /lpf U Epithel Cells (Auto) (0-5) /lpf Urine Bacteria (Auto) (Negative) SARS-CoV-2, RNA, NAAT NEGATIVE (NEGATIVE) 06/21/22 06/21/22 Range/Units 01:30 02:00 WBC 8.45 (4.8-10.8) K/ul RBC 3.56 L (4.20-5.40) M/uL Hgb 12.0 (12.0-16.0) g/dl Hct 34.2 L (37.0-47.0) % MCV 96.1 (80.0-100.0) fL MCH 33.7 (25.0-34.0) pg MCHC 35.1 (32.0-36.0) g/dL RDW Std Deviation 46.6 H (36.4-46.3) fL RDW Coeff of Angelique 13.2 (11.5-14.5) % Plt Count 229 (130-400) K/uL MPV 9.3 L (9.4-12.4) fL Immature Gran % (Auto) 0.4 % Neut % (Auto) 77.7 % Lymph % (Auto) 11.0 % [place] % (Auto) 6.5 % Eos % (Auto) 3.8 % Baso % (Auto) 0.6 % Neut # (Auto) 6.57 H (1.40-6.50) K/uL Lymph # (Auto) 0.93 L (1.2-3.4) K/uL [place] # (Auto) 0.55 (0.11-0.59) K/uL Eos # (Auto) 0.32 (0-0.50) K/uL Baso # (Auto) 0.05 (0-0.2) K/uL Immature Gran # (Auto) 0.03 (0.01-0.20) K/uL D-Dimer (0-500) ug/L FEU Sodium (136-145) mmol/L Potassium (3.5-5.1) mmol/L Chloride (98-107) mmol/L Carbon Dioxide (21-32) mmol/L Anion Gap (3-11) BUN (6-23) mg/dl Creatinine (0.6-1.2) mg/dl Est Cr Clr Drug Dosing ml/min Est GFR ( Amer) ml/min Est GFR (Non-Af Amer) ml/min BUN/Creatinine Ratio (10-20) Glucose (70-99(Fasting)) mg/dl Calcium (8.5-10.1) mg/dl Total Bilirubin (0.2-1.0) mg/dl AST (13-39) U/L ALT (7-52) U/L Alkaline Phosphatase (34-104) U/L Troponin I High Sens (0-14) pg/ml Total Protein (6.0-8.3) gm/dl Albumin (3.4-5.0) gm/dl Globulin (2.5-4.0) gm/dl Albumin/Globulin Ratio (0.9-2) Amylase (25-115) U/L Lipase (11-82) U/L Urine Color Yellow Urine Appearance Cloudy A (Clear) Urine pH 6.5 (4.5-7.5) Ur Specific [place] 1.015 (1.000-1.030) Urine Protein Trace H (Negative) Urine Glucose (UA) Negative (Negative) Urine Ketones 2+ H (Negative) Urine Blood Trace H (Negative) Urine Nitrite Positive A (Negative) Urine Bilirubin Negative (Negative) Urine Urobilinogen Negative (Negative) Ur Leukocyte Esterase 2+ H (Negative) Urine WBC (Auto) >30 H (0-5) /hpf Urine RBC (Auto) 0-4 (0-4) /hpf U Hyaline Cast (Auto) 1-5 (0-5) /lpf U Epithel Cells (Auto) 20-30 H (0-5) /lpf Urine Bacteria (Auto) 4+ H (Negative) SARS-CoV-2, RNA, NAAT (NEGATIVE) Imaging Data Attestation: I personally reviewed and interpreted this imaging study as follows: My Impression: Chest x-ray was interpreted by myself as negative for acute cardiopulmonary etiology. Radiology report is still pending. Radiologist's Impression: Abdomen/Pelvis CT 06/21/22 00:58 Exam(s): CT ABDOMEN + PELVIS With Contrast IV Amt: 109 ML OPTIRAY 320 EXAM: CT Abdomen and Pelvis With Intravenous Contrast CLINICAL HISTORY: Reason for exam: upper abdominal pain, N/V/D, h/o pancreatitis. TECHNIQUE: Axial computed tomography images of the abdomen and pelvis with intravenous contrast. Automated exposure control was utilized for the study. A dose lowering technique was utilized adhering to the principles of ALARA. CONTRAST: Patient received 109 ML OPTIRAY 320 of IV contrast COMPARISON: CT abdomen/pelvis dated October 27, 2021 (no reformatted images on prior imaging provided). FINDINGS: Lung bases: Unremarkable. No mass. No consolidation. ABDOMEN: Liver: Unremarkable. No mass. Gallbladder and bile ducts: Cholecystectomy changes. The common duct measures up to 1.2 cm with intrahepatic biliary dilatation which may relate to reservoir effect. Pancreas: Diffuse stranding surrounding the pancreas which likely relates to pancreatitis. Consider correlation with laboratory values. If there is further concern for other complication such as necrosis, consider multiphasic imaging or MRI. No ductal dilation. Spleen: Unremarkable. No splenomegaly. Adrenals: Unremarkable. No mass. Kidneys and ureters: Unremarkable. No solid mass. No hydronephrosis. Stomach and bowel: Unremarkable. No mucosal thickening. No evidence of bowel obstruction. PELVIS: Appendix: Normal appendix. Bladder: Unremarkable. No mass. Reproductive: Unremarkable as visualized. ABDOMEN and PELVIS: Intraperitoneal space: Mild pelvic free fluid which may be reactive in nature. No free air. Bones/joints: Degenerative changes in the spine. No acute fracture. No dislocation. Soft tissues: Unremarkable. Vasculature: Patent splenic vein. No abdominal aortic aneurysm. Lymph nodes: Unremarkable. No enlarged lymph nodes. IMPRESSION: 1. Diffuse stranding surrounding the pancreas which likely relates to pancreatitis. Consider correlation with laboratory values. If there is further concern for other complication such as necrosis, consider multiphasic imaging or MRI. 2. Patent splenic vein. 3. Incidental findings as described. Electronically signed by: Sukumar Luis MD 06/21/22 05:07 AM Chest CTA 06/21/22 02:27 Exam(s): CTA CHEST IV Amt: 109 ML OPTIRAY 320 EXAM: CT Angiography Chest With Intravenous Contrast CLINICAL HISTORY: Reason for exam: PE. TECHNIQUE: Axial computed tomographic angiography images of the chest with intravenous contrast. Automated exposure control was utilized for the study. A dose lowering technique was utilized adhering to the principles of ALARA. MIP reconstructed images were created and reviewed. COMPARISON: No relevant prior studies available. FINDINGS: Pulmonary arteries: Unremarkable. No pulmonary embolism detected. Aorta: No acute findings. No thoracic aortic aneurysm. Lungs: Biapical scarring. No mass. Pleural space: Unremarkable. No significant effusion. No pneumothorax. Heart: Unremarkable. No cardiomegaly. No significant pericardial effusion. No evidence of RV dysfunction. Thyroid: Right thyroid nodule measuring 0.4 cm in maximum dimension. No follow-up is necessary. Bones/joints: No acute fracture. No dislocation. Soft tissues: Unremarkable. Lymph nodes: Unremarkable. No enlarged lymph nodes. IMPRESSION: No pulmonary embolism detected. Electronically signed by: Sukumar Luis MD 06/21/22 05:11 AM [facility] Narrative I examined the patient. An IV lock was placed and labs were drawn. She was given a total of 1.5 L normal saline solution bolus. She was given Toradol 10 mg IV and Zofran 4 mg IV followed by morphine 4 mg IV and Zofran 4 mg IV. She was then given an additional morphine 4 mg IV followed by Dilaudid 0.5 mg IV for pain. Continuous monitoring tech: Order was placed for continuous monitoring tech. Patient was placed on the monitoring tech and continuous pulse ox. Patient was noted to be in normal sinus rhythm at an initial rate of 85 bpm per my interpretation. EKG was interpreted by myself as sinus rhythm at 83 bpm with occasional PVCs with no acute ST or T wave changes. Chest x-ray was interpreted by myself as negative for acute cardiopulmonary etiology. Radiology report is still pending. CBC without leukocytosis or anemia. Sodium low at 134, potassium low at 3.4, glucose elevated at 119, normal BUN and creatinine. AST elevated at 155, ALT elevated 88, alk phos elevated at 182, total bilirubin normal at 0.8. Lipase elevated at 164 with normal amylase at 111. Troponin was normal. D-dimer elevated at 2010. Urinalysis appears consistent with a UTI. Culture is pending. COVID is negative. CTA of the chest with contrast was reviewed by myself and read by stat rad as above and shows no evidence for PE or other cardiopulmonary etiology. CT scan of the abdomen pelvis with IV contrast was reviewed by myself and read by stat rad as above and shows diffuse stranding surrounding the pancreas which likely relates to pancreatitis. No pancreatic ductal dilation. If there is further concern for complications such as necrosis, consider multiphasic imaging or MRI. Patent splenic vein. The common duct measures up to 1.2 cm with intrahepatic biliary dilation, which may relate to reservoir effect. The patient was given Rocephin 1 g IV for the UTI and was started on maintenance fluids. She has been kept n.p.o. and will remain n.p.o. at this time. I had a meaningful discussion about this patient with Dr. Henry who agrees with my assessment and the treatment plan. I spoke with the on-call hospitalist who agreed to admit the patient for further evaluation and treatment. Please refer to their dictation for further details. The patient's care was transferred in stable condition. Impression & Plan Acute pancreatitis, Chest pain, UTI (urinary tract infection), Elevated LFTs, Nausea vomiting and diarrhea Discharge Plan Visit Data Chief Complaint: Abdominal Pain Stated Complaint: PAIN IN CHEST,PAIN IN PANCREAS AREA AND BACK,VOMIT ED Provider: Devi Henry ED Midlevel Provider: Jayshree Zapien. Discharge Problem: Acute pancreatitis, Chest pain, UTI (urinary tract infection), Elevated LFTs, Nausea vomiting and diarrhea Patient Disposition: Admitted As Inpatient Condition: Good Forms Stand Alone Forms: My [facility] Prescriptions Prescriptions: No Action clonazepam 1 mg tablet 1 mg PO BID PRN (Reason: Anxiety) bupropion HCl [Wellbutrin XL] 150 mg tablet extended release 24 hr 150 mg PO QAM acetaminophen [Tylenol Extra Strength] 500 mg Tablet 1,000 mg PO DIRECTED PRN (Reason: Pain) buspirone 10 mg tablet 20 mg PO BID oxycodone-acetaminophen 7.5-325 mg tablet 1 tab PO QID PRN (Reason: Pain) gabapentin 400 mg capsule 800 mg PO BID sertraline 50 mg tablet 75 mg PO QAM Referrals Referrals: PCP,NO [Physician] - Acute pancreatitis Qualifiers: Pancreatitis type: unspecified pancreatitis type Acute pancreatitis complication: unspecified Qualified Code(s): K85.90 - Acute pancreatitis without necrosis or infection, unspecified Chest pain Qualifiers: Chest pain type: unspecified Qualified Code(s): R07.9 - Chest pain, unspecified UTI (urinary tract infection) Qualifiers: Urinary tract infection type: acute cystitis Hematuria presence: without hematuria Qualified Code(s): N30.00 - Acute cystitis without hematuria
[2022-06-21] MEDS ORDERED: KETOROLAC TROMETHAMINE 15 MG/ML VIAL IV STA (00:58)
[2022-06-21] MEDS ORDERED: ONDANSETRON INJ 2 MG/ML 2 ML VIAL IV STA ×2 (00:58→02:07)
[2022-06-21] MEDS ORDERED: SODIUM CHLORIDE 0.9% 1000ML 1,000 ML IV STA (00:58)
[2022-06-21 01:41] LABS: Basophils # (auto) 0.05 K/uL (0-0.2); Basophils % (auto) 0.6 %; Eosinophils # (auto) 0.32 K/uL (0-0.50); Eosinophils % (auto) 3.8 %; Hematocrit (blood only) 34.2 % (37.0-47.0); Immature Granulocytes # (auto) 0.03 K/uL (0.01-0.20); Immature Granulocytes % (auto) 0.4 %; Lymphocytes # (auto) 0.93 K/uL (1.2-3.4); Mean Corpuscular Hemoglobin 33.7 pg (25.0-34.0); Mean Corpuscular Hgb Conc 35.1 g/dL (32.0-36.0); Mean Corpuscular Volume 96.1 fL (80.0-100.0); Mean Platelet Volume 9.3 fL (9.4-12.4); Monocytes # (auto) 0.55 K/uL (0.11-0.59); Monocytes % (auto) 6.5 %; Neutrophils # (auto) 6.57 K/uL (1.40-6.50); Neutrophils % (auto) 77.7 %; Platelet Count 229 K/uL (130-400); RDW Coefficient of Variation 13.2 % (11.5-14.5); RDW Standard Deviation 46.6 fL (36.4-46.3); Red Blood Count 3.56 M/uL (4.20-5.40); White Blood Count 8.45 K/ul (4.8-10.8)
[2022-06-21 01:58] LABS: Albumin Globulin Ratio 1.8 (0.9-2); Albumin Level 4.2 gm/dl (3.4-5.0); BUN Creatinine Ratio 26.5 (10-20); Bilirubin,Total 0.8 mg/dl (0.2-1.0); Calcium 8.7 mg/dl (8.5-10.1); Creatinine Clr Calc Pharmacy 97.6 ml/min; Est GFR (African American) 116.6 ml/min; Est GFR (Non-African American) 100.6 ml/min; Globulin 2.3 gm/dl (2.5-4.0); Potassium 3.4 mmol/L (3.5-5.1); Total Protein 6.5 gm/dl (6.0-8.3)
[2022-06-21 02:06] LABS: Troponin I High Sensitivity 4.7 pg/ml (0-14)
[2022-06-21] MEDS ORDERED: MoRPHine SULFATE 4 MG/ML 1 ML CARP\\VIAL IV STA ×2 (02:07→03:39)
[2022-06-21 02:20] LABS: Appearance Urine Cloudy (Clear); Bacteria Urine Automated 4+ (Negative); Bilirubin Urine Negative (Negative); Blood Urine Trace (Negative); Color Urine Yellow; Epithelial Cell Urine Auto 20-30 /lpf (0-5); Glucose Urine UA Negative (Negative); Ketones Urine 2+ (Negative); Leukocyte Esterase Urine 2+ (Negative); Nitrite Urine Positive (Negative); Protein Urine Trace (Negative); RBC Urine Automated 0-4 /hpf (0-4); Specific Gravity Urine 1.015 (1.000-1.030); Urobilinogen Urine Negative (Negative); WBC Urine Automated >30 /hpf (0-5); pH Urine 6.5 (4.5-7.5)
[2022-06-21 02:27] LABS: D Dimer 2010 ug/L FEU (0-500)
[2022-06-21] MEDS ORDERED: OPTIRAY 320 500ml IV ONE (02:45)
[2022-06-21] MEDS ORDERED: SODIUM CHLORIDE 0.9% 500 ML IV ONE (03:39)
[2022-06-21] MEDS ORDERED: HYDROmorphone INJ 0.5 MG/0.5 ML SYR IV STA (04:57)
--- NOTE | 2022-06-21 05:08 | CT Scan Report ---
Exam(s): CT ABDOMEN + PELVIS With Contrast IV Amt: 109 ML OPTIRAY 320 EXAM: CT Abdomen and Pelvis With Intravenous Contrast CLINICAL HISTORY: Reason for exam: upper abdominal pain, N/V/D, h/o pancreatitis. TECHNIQUE: Axial computed tomography images of the abdomen and pelvis with intravenous contrast. Automated exposure control was utilized for the study. A dose lowering technique was utilized adhering to the principles of ALARA. CONTRAST: Patient received 109 ML OPTIRAY 320 of IV contrast COMPARISON: CT abdomen/pelvis dated October 27, 2021 (no reformatted images on prior imaging provided). FINDINGS: Lung bases: Unremarkable. No mass. No consolidation. ABDOMEN: Liver: Unremarkable. No mass. Gallbladder and bile ducts: Cholecystectomy changes. The common duct measures up to 1.2 cm with intrahepatic biliary dilatation which may relate to reservoir effect. Pancreas: Diffuse stranding surrounding the pancreas which likely relates to pancreatitis. Consider correlation with laboratory values. If there is further concern for other complication such as necrosis, consider multiphasic imaging or MRI. No ductal dilation. Spleen: Unremarkable. No splenomegaly. Adrenals: Unremarkable. No mass. Kidneys and ureters: Unremarkable. No solid mass. No hydronephrosis. Stomach and bowel: Unremarkable. No mucosal thickening. No evidence of bowel obstruction. PELVIS: Appendix: Normal appendix. Bladder: Unremarkable. No mass. Reproductive: Unremarkable as visualized. ABDOMEN and PELVIS: Intraperitoneal space: Mild pelvic free fluid which may be reactive in nature. No free air. Bones/joints: Degenerative changes in the spine. No acute fracture. No dislocation. Soft tissues: Unremarkable. Vasculature: Patent splenic vein. No abdominal aortic aneurysm. Lymph nodes: Unremarkable. No enlarged lymph nodes. IMPRESSION: 1. Diffuse stranding surrounding the pancreas which likely relates to pancreatitis. Consider correlation with laboratory values. If there is further concern for other complication such as necrosis, consider multiphasic imaging or MRI. 2. Patent splenic vein. 3. Incidental findings as described. Electronically signed by: Sukumar Luis MD 06/21/22 05:07 AM
--- NOTE | 2022-06-21 05:12 | CT Scan Report ---
Exam(s): CTA CHEST IV Amt: 109 ML OPTIRAY 320 EXAM: CT Angiography Chest With Intravenous Contrast CLINICAL HISTORY: Reason for exam: PE. TECHNIQUE: Axial computed tomographic angiography images of the chest with intravenous contrast. Automated exposure control was utilized for the study. A dose lowering technique was utilized adhering to the principles of ALARA. MIP reconstructed images were created and reviewed. COMPARISON: No relevant prior studies available. FINDINGS: Pulmonary arteries: Unremarkable. No pulmonary embolism detected. Aorta: No acute findings. No thoracic aortic aneurysm. Lungs: Biapical scarring. No mass. Pleural space: Unremarkable. No significant effusion. No pneumothorax. Heart: Unremarkable. No cardiomegaly. No significant pericardial effusion. No evidence of RV dysfunction. Thyroid: Right thyroid nodule measuring 0.4 cm in maximum dimension. No follow-up is necessary. Bones/joints: No acute fracture. No dislocation. Soft tissues: Unremarkable. Lymph nodes: Unremarkable. No enlarged lymph nodes. IMPRESSION: No pulmonary embolism detected. Electronically signed by: Sukumar Luis MD 06/21/22 05:11 AM
[2022-06-21] MEDS ORDERED: cefTRIAXone SODIUM 1,000 MG in DEXTROSE 5% AD-VAN 50 ML IV STA (05:22)
[2022-06-21] MEDS: SODIUM CHLORIDE 0.9% 1000ML 1,000 ML IV SCH ×3 (05:54→21:41)
--- NOTE | 2022-06-21 06:13 | History & Physical Report ---
Patient seen and examined. I agree with the history and physical and the plan as outlined in the resident's note. Date of Service June 21, 2022 Assessment & Plan (1) Acute pancreatitis: Plan: -Clinical history and workup consistent with acute pancreatitis -Unclear cause as pt does not endorse significant ETOH use, no triglyceridemia, s/p cholecystectomy, home medications are not common culprits for pancreatitis -Hepatitis panel pending, C difficile pending -NPO, LR 250 cc/hr, Zofran PRN -Pain control- Toradol PRN, morphine PRN, Dilaudid PRN -Serial abdominal exams -Advance diet as tolerated -Continue supportive care (2) UTI (urinary tract infection): Plan: -Pt reports dysuria and UA on admission suggesting infection -Urine culture pending -Continue ceftriaxone 1g daily (3) Elevated LFTs: Plan: -Mild transaminitis noted on admission -Likely reactive to acute inflammatory state -Trend CMP (4) Hypokalemia: Plan: -K 3.4 on admission -Likely due to poor oral intake -Repletion with IV KCl while NPO -Trend CMP (5) Hyponatremia: Plan: -Na 134 on admission -Likely due to poor oral intake -Continue fluid repletion -Trend CMP (6) MDD (major depressive disorder): Plan: -Holding home sertraline, Wellbutrin due to NPO -Resume as able (7) NEL (generalized anxiety disorder): Plan: -Holding home buspirone, clonazepam due to NPO status -Resume as able (8) Cervical radiculopathy: Plan: -Holding home gabapentin due to NPO status -Resume as able Plan FENGI: NPO, IVF Code status: Full DVT ppx: Lovenox Isolation: None Dispo: Medical/surgical History of Present Illness Chief Complaint: Abdominal pain Primary Care Provider: Domingaantonio Connolly 52 yo F with PMH cholecystectomy, SBO, 2 previous pancreatitis episodes, NEL, MDD, cervical radiculopathy s/p cervical fusion presenting with abdominal pain. Pt began to experience epigastric abdominal pain with radiation to left-side of torso, chest and back along with associated nausea, NBNB emesis, watery diarrhea and reduced appetite for about 2 weeks. Symptoms have continually progressed with minimal relief. This does feel similar to her previous episodes of pancreatitis (most recent 10/04 due to gallstones for which she had cholecystectomy). She denies significant alcohol use or history of dyslipidemia. No sick contacts or recent travel. Denies fevers, chills, dyspnea. Pt arrived to ER hemodynamically stable. Labs significant for Na 134, K 3.4, AST 155, ALT 88, lipase 164, UA with LE + WBCs + bacteria + nitrites, D-dimer 2009. EKG unremarkable, CXR without acute process. Chest CTA negative. CTAP with fat stranding around pancreas. ER interventions include IVF repletion, Dilaudid, morphine, Toradol and ceftriaxone. On my evaluation, pt reports continued abdominal pain but does note some relief from the pain medications. Allergies Allergy/AdvReac Type Severity Reaction Status Date / Time rizatriptan Allergy Severe Difficulty Verified 06/21/22 01:03 Breathing benzoin Allergy Intermediate USED TO Verified 06/21/22 01:03 PUT UNDER STERI STRIPS TO KEEP THEM ON -- BLISTERS tramadol AdvReac Intermediate N/V Verified 06/21/22 01:03 Home Medications Medication Instructions Recorded Confirmed Type clonazepam 1 mg tablet 1 mg PO BID PRN Anxiety 02/10/18 06/21/22 History acetaminophen 500 mg tablet 1,000 mg PO DIRECTED PRN Pain 09/19/19 06/21/22 History (Tylenol Extra Strength) bupropion HCl 150 mg 24 hr tablet, 150 mg PO QAM 09/19/19 06/21/22 History extended release (Wellbutrin XL) gabapentin 400 mg capsule 800 mg PO BID 06/26/20 06/21/22 History sertraline 50 mg tablet 75 mg PO QAM 06/26/20 06/21/22 History buspirone 10 mg tablet 20 mg PO BID 06/21/22 06/21/22 History oxycodone-acetaminophen 7.5 mg-325 1 tab PO QID PRN Pain 06/21/22 06/21/22 History mg tablet Past Med/Surg History Medical History Cervical disc herniation (02/18/14) Cervical radiculopathy GOOD ROM PER PT Chronic low back pain Chronic neck pain Disc degeneration, lumbar Dysuria Electrolyte abnormality NEL (generalized anxiety disorder) Hematuria Hx of migraines Hydronephrosis, right Intractable abdominal pain Lab test negative for COVID-19 virus MDD (major depressive disorder) Migraine [place] Osteoarthritis Peripheral neuropathy Urge and stress incontinence Urinary retention UTI (urinary tract infection) Surgical History H/O abdominal surgery (10/27/21) Laparoscopic Washout S/P Laparoscopic Cholecystectomy(Not Applicable) - Sukumar Wood, DO H/O hand surgery repair of hand injury due to a dog bite H/O wrist surgery History of breast biopsy History of cystoscopy History of esophagogastroduodenoscopy (EGD) History of mandibular surgery History of robot-assisted laparoscopic hysterectomy Hx of abdominal surgery (10/25/21) p Diagnostic Laparoscopy with Pelvic Washings(Not Applicable) - Sukumar Wood, DO s Laparoscopic Cholecystectomy - Sukumar Wood, DO Hx of cystoscopy (~08/15/20) TURBT with stent placement [facility] Hx of lumpectomy LEFT (BENIGN) S/P cervical spinal fusion C4-C5 & C5-C6. TOTAL OF 3 FUSIONS ([employer]). LIMITED RANGE TO LEFT. HAS BEEN INTUBATED SINCE. 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 HEENT--PERRL, EOMI, mucous membranes and oropharynx dry. Neck--supple. No JVD. No bruits. Thyroid normal, trachea midline, no adenopathy. Heart--normal S1 and S2. No murmurs, rubs or gallops. Lungs--clear bilaterally, no respiratory distress, no accessory muscle use. Abdomen-- diffusely tender to mild palpation most pronounced in epigastrium normal bowel sounds, no rebound or guarding, nondistended Extremities--no cyanosis or clubbing. No edema. Dermatologic--normal skin turgor, normal color, no abnormal lymph nodes, no rash. Neurologic--cranial nerves II through XII grossly intact. Rheumatologic--normal range of motion. Psychiatric--normal affect. Results & Data Results & Data ([facility]) Vital Signs (Past 12 Hours) Vital Signs Temp Pulse Pulse Resp BP BP Pulse Ox 06/21/22 05:30 82 14 167/87 H 98 06/21/22 04:55 84 06/21/22 04:28 86 18 163/82 H 96 06/21/22 02:51 80 16 175/85 H 96 06/21/22 01:45 81 16 167/100 H 98 06/21/22 01:38 87 18 97 06/21/22 00:51 86 06/21/22 00:36 36.8 C 92 H 20 156/84 H 98 O2 Del Method 06/21/22 05:30 Room Air 06/21/22 04:55 06/21/22 04:28 Room Air 06/21/22 02:51 06/21/22 01:45 Room Air 06/21/22 01:38 Room Air 06/21/22 00:51 06/21/22 00:36 Room Air Resident Activity Tracking Resident Involvement: Resident Care Provided Care Provided: Adult Hospital Medicine (1) Acute pancreatitis Acute pancreatitis complication: unspecified Pancreatitis type: unspecified pancreatitis type Qualified Code(s): K85.90 - Acute pancreatitis without necrosis or infection, unspecified (2) UTI (urinary tract infection) Hematuria presence: without hematuria Urinary tract infection type: acute cystitis Qualified Code(s): N30.00 - Acute cystitis without hematuria
--- NOTE | 2022-06-21 07:30 | XRay Report ---
SINGLE VIEW CHEST CLINICAL HISTORY: Atypical chest pain FINDINGS: 2 AP, portable, upright chest radiographs are compared to study dated 10/14/2021 and correlat ed with chest CT dated 06/26/2020. The cardiomediastinal silhouette is unremarkable. The lungs and ple ural spaces are clear noting mild bibasilar atelectasis. No pneumothorax is seen. The bony thorax is grossly intact. Fusion hardware is noted in the lower cervical spine. IMPRESSION: No active disease in the chest. ACT 112: Negative or not required by law. Electronically signed by: Eliud Marcano M.D. 06/21/2022 7:29 AM
[2022-06-21] MEDS ORDERED: LACTATED RINGER'S 1,000 ML IV SCH (09:11)
[2022-06-21] MEDS ORDERED: ONDANSETRON INJ 2 MG/ML 2 ML VIAL IV PRN (09:11)
[2022-06-21] MEDS: HYDROmorphone INJ 0.5 MG/0.5 ML SYR IV PRN ×3 (09:35→21:40)
[2022-06-21] MEDS: POTASSIUM CHLORIDE / WTR 10 MEQ/100 ML PLCT IV SCH ×4 (09:37→12:56)
[2022-06-21] MEDS: ENOXAPARIN INJ 40 MG/0.4 ML SYR SQ SCH (10:42)
--- NOTE | 2022-06-21 12:49 | Electrocardiogram Report ---
Test Reason : Blood Pressure : / mmHG Vent. Rate : 083 BPM Atrial Rate : 083 BPM P-R Int : 174 ms QRS Dur : 092 ms QT Int : 404 ms P-R-T Axes : 067 075 068 degrees QTc Int : 474 ms Poor data quality, interpretation may be adversely affected Sinus rhythm with occasional Premature ventricular complexes Otherwise normal ECG When compared with ECG of 14-OCT-2021 12:40, Premature ventricular complexes are now Present Nonspecific ST and T wave abnormality no longer present Confirmed by Neel Suárez ([id number]) on 06/21/2022 12:48:56 PM Referred By: REFERRED SELF Confirmed By:Neel Suárez
[2022-06-21] MEDS: MoRPHine SULFATE 2 MG/ML CARP IV PRN ×3 (13:15→23:36)
[2022-06-21] MEDS: KETOROLAC TROMETHAMINE 15 MG/ML VIAL IV PRN (14:57)
[2022-06-22] MEDS: HYDROmorphone INJ 0.5 MG/0.5 ML SYR IV PRN ×4 (03:43→23:30)
[2022-06-22] MEDS: SODIUM CHLORIDE 0.9% 1000ML 1,000 ML IV SCH ×2 (05:55→13:33)
[2022-06-22] MEDS: cefTRIAXone SODIUM 1,000 MG in DEXTROSE 5% AD-VAN 50 ML IV SCH (05:55)
[2022-06-22] MEDS: MoRPHine SULFATE 2 MG/ML CARP IV PRN ×3 (08:17→20:08)
[2022-06-22] MEDS: ENOXAPARIN INJ 40 MG/0.4 ML SYR SQ SCH (08:19)
[2022-06-22 09:37] LABS: HBSAG NON-REACTIVE (NON-REACTIVE); Hepatitis A Antibody IgM NON-REACTIVE (NON-REACTIVE); Hepatitis B Core Antibody IgM NON-REACTIVE (NON-REACTIVE)
[2022-06-22] MEDS: busPIRone 5 MG TAB PO SCH ×2 (09:52→20:13)
[2022-06-22] MEDS: SERTRALINE HCL 50 MG TABLET PO SCH (09:52)
[2022-06-22] MEDS: buPROPion XL 150 MG TABCR PO SCH (09:52)
[2022-06-22] MEDS: GABAPENTIN 400 MG CAP PO SCH ×2 (09:53→20:12)
[2022-06-22] MEDS ORDERED: bisacodyL 5 MG TABEC PO ONE (09:57)
[2022-06-22] MEDS: KETOROLAC TROMETHAMINE 15 MG/ML VIAL IV PRN (11:16)
[2022-06-22] MEDS: POLYETHYLENE (MIRALAX) 17 GM PACK PO SCH (11:16)
[2022-06-22] MEDS ORDERED: oxyCODONE HCL IR 5 MG TAB (IMMEDIATE RELEASE) PO PRN (11:44)
--- NOTE | 2022-06-22 11:50 | Hospitalist Progress Note ---
Date of Service June 22, 2022 Assessment & Plan (1) Acute pancreatitis: Plan: -Clinical history and workup consistent with acute pancreatitis -Unclear cause as pt does not endorse significant ETOH use, no triglyceridemia, s/p cholecystectomy, home medications are not common culprits for pancreatitis -pain much better compared to admission -Tolerating full liquid diet -Pain control- oxycodone, morphine PRN, Dilaudid PRN -Advance diet as tolerated -Continue supportive care (2) UTI (urinary tract infection): Plan: -Pt reports dysuria and UA on admission suggesting infection -Urine culture growing gram negatives, full characterization pending -Continue ceftriaxone 1g daily (3) Elevated LFTs: Plan: -Mild transaminitis noted on admission -Likely reactive to acute inflammatory state -Trend CMP (4) Hypokalemia: Plan: Replace (5) Hyponatremia: Plan: -Na 134 on admission -Likely due to poor oral intake -Continue fluid repletion -Trend CMP (6) MDD (major depressive disorder): Plan: -Holding home sertraline, Wellbutrin due to NPO -Resume as able (7) NEL (generalized anxiety disorder): Plan: -Holding home buspirone, clonazepam due to NPO status -Resume as able (8) Cervical radiculopathy: Plan: -Holding home gabapentin due to NPO status -Resume as able Plan Code status: Full DVT ppx: Lovenox Hopefully d/c in the next 24 hrs Admission and Anticipated Discharge Date Admission Date: June 21, 2022 Subjective patient seen and examined, still has some abdominal pain and complains of constipation Review of Systems Review of Systems: All systems reviewed are negative, apart from the ones contained in the history. Physical Exam Physical Exam: The patient is awake, alert and oriented 3, well developed and well nourished, normocephalic and atraumatic, lying in bed and in no acute distress. HEENT--PERRL, EOMI, mucous membranes and oropharynx mildly dry Neck--supple. No JVD. No bruits. Thyroid normal, trachea midline, no adenopathy. Heart--normal S1 and S2. No murmurs, rubs or gallops. Lungs--clear bilaterally, no respiratory distress, no accessory muscle use. Abdomen--mild epigastric tenderness Extremities--no cyanosis or clubbing. No edema. Dermatologic--normal skin turgor, normal color, no abnormal lymph nodes, no rash. Neurologic--cranial nerves II through XII grossly intact. Rheumatologic--normal range of motion. Psychiatric--normal affect. Results & Data Results & Data ([facility]) Vital Signs (Past 12 Hours) Vital Signs Temp Pulse Resp BP Pulse Ox O2 Del Method 06/22/22 07:51 97.9 F 91 H 18 176/106 H 98 Room Air PG Care Time/CCT Total # of Minutes Spent Total Time Spent with Patient: Total time spent is greater than 50% in coordination of care (as documented) at patient's floor/unit and/or counseling patient: Coding Level of Care Code 87012 SUB INP/OBS CARE 2/35MIN Diagnoses Acute pancreatitis K85.90 Acute pancreatitis complication: unspecified Pancreatitis type: unspecified pancreatitis type UTI (urinary tract infection) N30.00 Hematuria presence: without hematuria Urinary tract infection type: acute cystitis Elevated LFTs R79.89 Hypokalemia E87.6 Hyponatremia E87.1 MDD (major depressive disorder) F32.9 NEL (generalized anxiety disorder) F41.1 Cervical radiculopathy M54.12 Time Spent (min) 35 (1) Acute pancreatitis Acute pancreatitis complication: unspecified Pancreatitis type: unspecified pancreatitis type Qualified Code(s): K85.90 - Acute pancreatitis without necrosis or infection, unspecified (2) UTI (urinary tract infection) Hematuria presence: without hematuria Urinary tract infection type: acute cystitis Qualified Code(s): N30.00 - Acute cystitis without hematuria
[2022-06-22] MEDS ORDERED: amLODIPine BESYLATE 5 MG TAB PO ONE (12:30)
[2022-06-23] MEDS: MoRPHine SULFATE 2 MG/ML CARP IV PRN ×5 (00:37→20:56)
[2022-06-23] MEDS: HYDROmorphone INJ 0.5 MG/0.5 ML SYR IV PRN ×3 (05:51→19:45)
[2022-06-23] MEDS: cefTRIAXone SODIUM 1,000 MG in DEXTROSE 5% AD-VAN 50 ML IV SCH (05:52)
[2022-06-23 06:38] LABS: Hematocrit (blood only) 33.2 % (37.0-47.0); Hemoglobin 11.4 g/dl (12.0-16.0); Mean Corpuscular Hemoglobin 33.7 pg (25.0-34.0); Mean Corpuscular Hgb Conc 34.3 g/dL (32.0-36.0); Mean Corpuscular Volume 98.2 fL (80.0-100.0); Mean Platelet Volume 9.9 fL (9.4-12.4); Platelet Count 255 K/uL (130-400); RDW Coefficient of Variation 13.9 % (11.5-14.5); RDW Standard Deviation 49.4 fL (36.4-46.3); Red Blood Count 3.38 M/uL (4.20-5.40); White Blood Count 5.19 K/ul (4.8-10.8)
[2022-06-23 06:53] LABS: BUN Creatinine Ratio 9.1 (10-20); Calcium 9.1 mg/dl (8.5-10.1); Creatinine Clr Calc Pharmacy 122.9 ml/min; Est GFR (Non-African American) 107.8 ml/min; Potassium 3.1 mmol/L (3.5-5.1)
[2022-06-23] MEDS ORDERED: POTASSIUM CHLORIDE CRTAB 20 MEQ TABCR PO STA (07:35)
[2022-06-23] MEDS: busPIRone 5 MG TAB PO SCH ×2 (08:32→19:48)
[2022-06-23] MEDS: GABAPENTIN 400 MG CAP PO SCH ×2 (08:32→19:47)
[2022-06-23] MEDS: SERTRALINE HCL 50 MG TABLET PO SCH (08:33)
[2022-06-23] MEDS: amLODIPine BESYLATE 5 MG TAB PO SCH (08:33)
[2022-06-23] MEDS: buPROPion XL 150 MG TABCR PO SCH (08:33)
[2022-06-23] MEDS: POLYETHYLENE (MIRALAX) 17 GM PACK PO SCH (08:36)
[2022-06-23] MEDS: ENOXAPARIN INJ 40 MG/0.4 ML SYR SQ SCH (08:37)
--- NOTE | 2022-06-23 10:45 | CT Scan Report ---
CT abd pelvis wo con CLINICAL HISTORY: follow up TECHNIQUE: Helical axial images of the abdomen and pelvis were obtained. Automated dose lowering tech niques and/or adjustment according to patient size were utilized for this exam. This exam was perfor med without intravenous contrast. CT DOSE: 310.22 mGy.cm COMPARISON: Comparison is made to CT abdomen pelvis 06/21/2022 FINDINGS: Lower chest: No acute abnormality. Liver: Unremarkable. No focal lesions are seen. Gallbladder and biliary tree: Patient is status post cholecystectomy. No intra- or extrahepatic bilia ry ductal dilation. Pancreas: There is minimal appearance of peripancreatic edema, significantly decreased from prior exa m. Spleen: Unremarkable. Adrenals: Unremarkable. Kidneys and ureters: Unremarkable. Bladder: Unremarkable. Reproductive organs: Unremarkable. Bowel: The appendix is normal. Lymph nodes Retroperitoneal: Unremarkable. Pelvic: Unremarkable. Mesenteric: Subcentimeter lymph nodes are noted. Peritoneum: Normal. Vessels: Atherosclerotic calcifications are seen. Abdominal wall: Unremarkable. Bones: Degenerative changes in the visualized spine. IMPRESSION: Interval improvement in peripancreatic fat stranding. No abnormal fluid collections are seen to mike courtney developing pseudocysts. ACT 112: Negative or not required by law. Electronically signed by: Loco Mijares M.D. 06/23/2022 10:42 AM
--- NOTE | 2022-06-23 10:50 | Hospitalist Progress Note ---
Date of Service June 23, 2022 Assessment & Plan (1) Acute pancreatitis: Plan: -Clinical history and workup consistent with acute pancreatitis -Unclear cause as pt does not endorse significant ETOH use, no triglyceridemia, s/p cholecystectomy, home medications are not common culprits for pancreatitis -pain got worse this morning -Did not tolerate regular diet, will revert to liquid diet Obtain CT abdomen -Pain control- oxycodone, morphine PRN, Dilaudid PRN -Advance diet as tolerated -Continue supportive care (2) UTI (urinary tract infection): Plan: -Pt reports dysuria and UA on admission suggesting infection -Urine culture growing gram negatives, full characterization pending -Continue ceftriaxone 1g daily (3) Elevated LFTs: Plan: -Mild transaminitis noted on admission -Likely reactive to acute inflammatory state -Trend CMP (4) Hypokalemia: Plan: Replace (5) Hyponatremia: Plan: -Na 134 on admission -Likely due to poor oral intake -Continue fluid repletion -Trend CMP (6) MDD (major depressive disorder): Plan: -Holding home sertraline, Wellbutrin due to NPO -Resume as able (7) NEL (generalized anxiety disorder): Plan: -Holding home buspirone, clonazepam due to NPO status -Resume as able (8) Cervical radiculopathy: Plan: -Holding home gabapentin due to NPO status -Resume as able Plan Code status: Full DVT ppx: Lovenox continue hopsitalization Admission and Anticipated Discharge Date Admission Date: June 21, 2022 Subjective patient seen and examined, still has some abdominal pain and did not tolerate diet, will revert to clears Review of Systems Review of Systems: All systems reviewed are negative, apart from the ones contained in the history. Physical Exam Physical Exam: The patient is awake, alert and oriented 3, well developed and well nourished, normocephalic and atraumatic, lying in bed and in no acute distress. HEENT--PERRL, EOMI, mucous membranes and oropharynx mildly dry Neck--supple. No JVD. No bruits. Thyroid normal, trachea midline, no adenopathy. Heart--normal S1 and S2. No murmurs, rubs or gallops. Lungs--clear bilaterally, no respiratory distress, no accessory muscle use. Abdomen--mild epigastric tenderness Extremities--no cyanosis or clubbing. No edema. Dermatologic--normal skin turgor, normal color, no abnormal lymph nodes, no rash. Neurologic--cranial nerves II through XII grossly intact. Rheumatologic--normal range of motion. Psychiatric--normal affect. Results & Data Results & Data ([facility]) Vital Signs (Past 12 Hours) Vital Signs Temp Pulse Resp BP BP Pulse Ox O2 Del Method 06/23/22 07:07 98.1 F 82 16 145/81 H 96 Room Air 06/23/22 05:56 156/89 H 06/22/22 23:08 98.1 F 71 18 172/66 H 99 Room Air PG Care Time/CCT Total # of Minutes Spent Total Time Spent with Patient: Total time spent is greater than 50% in coordination of care (as documented) at patient's floor/unit and/or counseling patient: Coding Level of Care Code 04868 SUB INP/OBS CARE 2/35MIN Diagnoses Acute pancreatitis K85.90 Acute pancreatitis complication: unspecified Pancreatitis type: unspecified pancreatitis type UTI (urinary tract infection) N30.00 Hematuria presence: without hematuria Urinary tract infection type: acute cystitis Elevated LFTs R79.89 Hypokalemia E87.6 Hyponatremia E87.1 MDD (major depressive disorder) F32.9 NEL (generalized anxiety disorder) F41.1 Cervical radiculopathy M54.12 Time Spent (min) 35 (1) Acute pancreatitis Acute pancreatitis complication: unspecified Pancreatitis type: unspecified pancreatitis type Qualified Code(s): K85.90 - Acute pancreatitis without necrosis or infection, unspecified (2) UTI (urinary tract infection) Hematuria presence: without hematuria Urinary tract infection type: acute cystitis Qualified Code(s): N30.00 - Acute cystitis without hematuria
[2022-06-23] MEDS: oxyCODONE HCL IR 5 MG TAB (IMMEDIATE RELEASE) PO PRN (22:51)
[2022-06-24] MEDS: HYDROmorphone INJ 0.5 MG/0.5 ML SYR IV PRN ×5 (01:44→21:52)
[2022-06-24] MEDS: cefTRIAXone SODIUM 1,000 MG in DEXTROSE 5% AD-VAN 50 ML IV SCH (05:45)
[2022-06-24] MEDS: GABAPENTIN 400 MG CAP PO SCH ×2 (07:45→19:34)
[2022-06-24] MEDS: busPIRone 5 MG TAB PO SCH ×2 (07:45→19:34)
[2022-06-24] MEDS: buPROPion XL 150 MG TABCR PO SCH (07:45)
[2022-06-24] MEDS: ENOXAPARIN INJ 40 MG/0.4 ML SYR SQ SCH (07:46)
[2022-06-24] MEDS: SERTRALINE HCL 50 MG TABLET PO SCH (07:46)
[2022-06-24] MEDS: amLODIPine BESYLATE 5 MG TAB PO SCH (07:46)
[2022-06-24] MEDS: MoRPHine SULFATE 2 MG/ML CARP IV PRN (07:51)
[2022-06-24] MEDS: POLYETHYLENE (MIRALAX) 17 GM PACK PO SCH (07:55)
[2022-06-24 07:57] LABS: Potassium 3.2 mmol/L (3.5-5.1)
[2022-06-24 08:02] LABS: Creatinine Clr Calc Pharmacy 118.6 ml/min; Est GFR (African American) 123.5 ml/min; Est GFR (Non-African American) 106.6 ml/min
[2022-06-24] MEDS ORDERED: POTASSIUM CHLORIDE CRTAB 20 MEQ TABCR PO STA (08:17)
[2022-06-24] MEDS: oxyCODONE HCL IR 5 MG TAB (IMMEDIATE RELEASE) PO PRN ×4 (09:43→23:35)
[2022-06-24] MEDS ORDERED: bisacodyL 10 MG SUPP PR STA (10:19)
--- NOTE | 2022-06-24 12:25 | Hospitalist Progress Note ---
Date of Service June 24, 2022 Assessment & Plan (1) Acute pancreatitis: Plan: -Clinical history and workup consistent with acute pancreatitis -Unclear cause as pt does not endorse significant ETOH use, no triglyceridemia, s/p cholecystectomy, home medications are not common culprits for pancreatitis -pain got worse this morning -Did not tolerate regular diet, will revert to liquid diet Obtain CT abdomen -Pain control- oxycodone, morphine PRN, Dilaudid PRN -Advance diet as tolerated -Continue supportive care (2) UTI (urinary tract infection): Plan: -Pt reports dysuria and UA on admission suggesting infection -Urine culture growing gram negatives, full characterization pending -Continue ceftriaxone 1g daily (3) Elevated LFTs: Plan: -Mild transaminitis noted on admission -Likely reactive to acute inflammatory state -Trend CMP (4) Hypokalemia: Plan: Replace (5) Hyponatremia: Plan: -Na 134 on admission -Likely due to poor oral intake -Continue fluid repletion -Trend CMP (6) MDD (major depressive disorder): Plan: -Resume home sertraline, Wellbutrin (7) NEL (generalized anxiety disorder): Plan: -Resume home buspirone, clonazepam (8) Cervical radiculopathy: Plan: -Resume home gabapentin (9) Constipation: Plan: No BM despite miralax and oral dulcolax will try [place] dulcolax Plan Code status: Full DVT ppx: Lovenox continue hopsitalization, hopefully d/c tomorrow Admission and Anticipated Discharge Date Admission Date: June 21, 2022 Subjective patient seen and examined, still has some abdominal pain but is willing to advance her diet, still no BM Review of Systems Review of Systems: All systems reviewed are negative, apart from the ones contained in the history. Physical Exam Physical Exam: The patient is awake, alert and oriented 3, well developed and well nourished, normocephalic and atraumatic, lying in bed and in no acute distress. HEENT--PERRL, EOMI, mucous membranes and oropharynx mildly dry Neck--supple. No JVD. No bruits. Thyroid normal, trachea midline, no adenopathy. Heart--normal S1 and S2. No murmurs, rubs or gallops. Lungs--clear bilaterally, no respiratory distress, no accessory muscle use. Abdomen--mild epigastric tenderness Extremities--no cyanosis or clubbing. No edema. Dermatologic--normal skin turgor, normal color, no abnormal lymph nodes, no rash. Neurologic--cranial nerves II through XII grossly intact. Rheumatologic--normal range of motion. Psychiatric--normal affect. Results & Data Results & Data ([facility]) Vital Signs (Past 12 Hours) Vital Signs Temp Pulse Resp BP Pulse Ox O2 Del Method 06/24/22 09:08 Room Air 06/24/22 07:24 97.5 F L 73 16 151/83 H 98 Room Air PG Care Time/CCT Total # of Minutes Spent Total Time Spent with Patient: Total time spent is greater than 50% in coordination of care (as documented) at patient's floor/unit and/or counseling patient: Coding Level of Care Code 10322 SUB INP/OBS CARE 2/35MIN Diagnoses Acute pancreatitis K85.90 Acute pancreatitis complication: unspecified Pancreatitis type: unspecified pancreatitis type UTI (urinary tract infection) N30.00 Hematuria presence: without hematuria Urinary tract infection type: acute cystitis Elevated LFTs R79.89 Hypokalemia E87.6 Hyponatremia E87.1 MDD (major depressive disorder) F32.9 NEL (generalized anxiety disorder) F41.1 Cervical radiculopathy M54.12 Constipation K59.00 Time Spent (min) 35 (1) Acute pancreatitis Acute pancreatitis complication: unspecified Pancreatitis type: unspecified pancreatitis type Qualified Code(s): K85.90 - Acute pancreatitis without necrosis or infection, unspecified (2) UTI (urinary tract infection) Hematuria presence: without hematuria Urinary tract infection type: acute cystitis Qualified Code(s): N30.00 - Acute cystitis without hematuria
[2022-06-25] MEDS: oxyCODONE HCL IR 5 MG TAB (IMMEDIATE RELEASE) PO PRN ×4 (04:43→21:36)
[2022-06-25 07:12] LABS: Hematocrit (blood only) 34.2 % (37.0-47.0); Hemoglobin 11.7 g/dl (12.0-16.0); Mean Corpuscular Hemoglobin 33.6 pg (25.0-34.0); Mean Corpuscular Hgb Conc 34.2 g/dL (32.0-36.0); Mean Corpuscular Volume 98.3 fL (80.0-100.0); Mean Platelet Volume 9.3 fL (9.4-12.4); Platelet Count 280 K/uL (130-400); RDW Standard Deviation 50.4 fL (36.4-46.3); Red Blood Count 3.48 M/uL (4.20-5.40); White Blood Count 4.43 K/ul (4.8-10.8)
[2022-06-25] MEDS: HYDROmorphone INJ 0.5 MG/0.5 ML SYR IV PRN ×3 (07:25→19:43)
[2022-06-25] MEDS: busPIRone 5 MG TAB PO SCH ×2 (07:26→20:04)
[2022-06-25] MEDS: amLODIPine BESYLATE 5 MG TAB PO SCH (07:26)
[2022-06-25] MEDS: GABAPENTIN 400 MG CAP PO SCH ×2 (07:26→20:05)
[2022-06-25] MEDS: SERTRALINE HCL 50 MG TABLET PO SCH (07:27)
[2022-06-25] MEDS: buPROPion XL 150 MG TABCR PO SCH (07:27)
[2022-06-25] MEDS: ENOXAPARIN INJ 40 MG/0.4 ML SYR SQ SCH (07:27)
[2022-06-25] MEDS: POLYETHYLENE (MIRALAX) 17 GM PACK PO SCH (07:28)
[2022-06-25 07:33] LABS: BUN Creatinine Ratio 11.1 (10-20); Calcium 9.1 mg/dl (8.5-10.1); Creatinine Clr Calc Pharmacy 107.3 ml/min; Est GFR (African American) 119.5 ml/min; Est GFR (Non-African American) 103.1 ml/min; Potassium 4.2 mmol/L (3.5-5.1)
[2022-06-25] MEDS: levoFLOXacin 250 MG TABLET PO SCH (11:57)
--- NOTE | 2022-06-25 12:36 | Hospitalist Progress Note ---
Date of Service June 25, 2022 Assessment & Plan (1) Acute pancreatitis: Plan: -Clinical history and workup consistent with acute pancreatitis -Unclear cause as pt does not endorse significant ETOH use, no triglyceridemia, s/p cholecystectomy, home medications are not common culprits for pancreatitis -pain is getting better, repeat CT showed some improvement in pancreatic swelling compared to admission -Tolertaing diet better -Pain control- oxycodone, morphine PRN, Dilaudid PRN -She would not agree to weaning IV pain meds, but says she has not been requiring much -Continue supportive care (2) UTI (urinary tract infection): Plan: -Pt reports dysuria and UA on admission suggesting infection -Urine culture growing E coli [place] sensitive -Now on PO Levaquin (3) Elevated LFTs: Plan: -Mild transaminitis noted on admission -Likely reactive to acute inflammatory state -Trend CMP (4) Hypokalemia: Plan: Replace (5) Hyponatremia: Plan: -resolved (6) MDD (major depressive disorder): Plan: -Resume home sertraline, Wellbutrin (7) NEL (generalized anxiety disorder): Plan: -Resume home buspirone, clonazepam (8) Cervical radiculopathy: Plan: -Resume home gabapentin (9) Constipation: Plan: resolved Plan Code status: Full DVT ppx: Lovenox continue hopsitalization, hopefully d/c tomorrow Admission and Anticipated Discharge Date Admission Date: June 21, 2022 Subjective patient seen and examined, still has some abdominal pain but tolerating diet, constipation has resolved Review of Systems Review of Systems: All systems reviewed are negative, apart from the ones contained in the history. Physical Exam Physical Exam: The patient is awake, alert and oriented 3, well developed and well nourished, normocephalic and atraumatic, lying in bed and in no acute distress. HEENT--PERRL, EOMI, mucous membranes and oropharynx mildly dry Neck--supple. No JVD. No bruits. Thyroid normal, trachea midline, no adenopathy. Heart--normal S1 and S2. No murmurs, rubs or gallops. Lungs--clear bilaterally, no respiratory distress, no accessory muscle use. Abdomen--mild epigastric tenderness Extremities--no cyanosis or clubbing. No edema. Dermatologic--normal skin turgor, normal color, no abnormal lymph nodes, no rash. Neurologic--cranial nerves II through XII grossly intact. Rheumatologic--normal range of motion. Psychiatric--normal affect. Results & Data Results & Data ([facility]) Vital Signs (Past 12 Hours) Vital Signs Temp Pulse Resp BP Pulse Ox O2 Del Method 06/25/22 08:03 98.2 F 77 17 140/82 97 Room Air PG Care Time/CCT Total # of Minutes Spent Total Time Spent with Patient: Total time spent is greater than 50% in coordination of care (as documented) at patient's floor/unit and/or counseling patient: Coding Level of Care Code 36537 SUB INP/OBS CARE 235MIN Diagnoses Acute pancreatitis K85.90 Acute pancreatitis complication: unspecified Pancreatitis type: unspecified pancreatitis type UTI (urinary tract infection) N30.00 Hematuria presence: without hematuria Urinary tract infection type: acute cystitis Elevated LFTs R79.89 Hypokalemia E87.6 Hyponatremia E87.1 MDD (major depressive disorder) F32.9 NEL (generalized anxiety disorder) F41.1 Cervical radiculopathy M54.12 Constipation K59.00 Time Spent (min) 35 (1) Acute pancreatitis Acute pancreatitis complication: unspecified Pancreatitis type: unspecified pancreatitis type Qualified Code(s): K85.90 - Acute pancreatitis without necrosis or infection, unspecified (2) UTI (urinary tract infection) Hematuria presence: without hematuria Urinary tract infection type: acute cystitis Qualified Code(s): N30.00 - Acute cystitis without hematuria
[2022-06-26] MEDS: oxyCODONE HCL IR 5 MG TAB (IMMEDIATE RELEASE) PO PRN ×3 (02:14→12:30)
[2022-06-26 08:03] LABS: Hematocrit (blood only) 37.6 % (37.0-47.0); Hemoglobin 12.7 g/dl (12.0-16.0); Mean Corpuscular Hemoglobin 33.5 pg (25.0-34.0); Mean Corpuscular Hgb Conc 33.8 g/dL (32.0-36.0); Mean Corpuscular Volume 99.2 fL (80.0-100.0); Mean Platelet Volume 9.3 fL (9.4-12.4); Platelet Count 325 K/uL (130-400); RDW Standard Deviation 51.4 fL (36.4-46.3); Red Blood Count 3.79 M/uL (4.20-5.40); White Blood Count 5.85 K/ul (4.8-10.8)
[2022-06-26] MEDS: POLYETHYLENE (MIRALAX) 17 GM PACK PO SCH (08:05)
[2022-06-26] MEDS: amLODIPine BESYLATE 5 MG TAB PO SCH (08:05)
[2022-06-26] MEDS: SERTRALINE HCL 50 MG TABLET PO SCH (08:06)
[2022-06-26] MEDS: GABAPENTIN 400 MG CAP PO SCH (08:07)
[2022-06-26] MEDS: busPIRone 5 MG TAB PO SCH (08:07)
[2022-06-26] MEDS: buPROPion XL 150 MG TABCR PO SCH (08:08)
[2022-06-26] MEDS: ENOXAPARIN INJ 40 MG/0.4 ML SYR SQ SCH (08:12)
[2022-06-26 08:19] LABS: BUN Creatinine Ratio 20.3 (10-20); Calcium 9.5 mg/dl (8.5-10.1); Creatinine Clr Calc Pharmacy 105.6 ml/min; Est GFR (African American) 118.9 ml/min; Est GFR (Non-African American) 102.6 ml/min
[2022-06-26] MEDS: levoFLOXacin 250 MG TABLET PO SCH (12:26)
--- NOTE | 2022-06-26 12:40 | CT Scan Report ---
CT abd pelvis wo con CLINICAL HISTORY: follow up TECHNIQUE: Helical axial images of the abdomen and pelvis were obtained. Automated dose lowering tech niques and/or adjustment according to patient size were utilized for this exam. This exam was perfor med without intravenous contrast. CT DOSE: 345.05 mGy.cm COMPARISON: Comparison is made to CT abdomen pelvis 06/23/2022 FINDINGS: Lower chest: No acute abnormality. Liver: Unremarkable. No focal lesions are seen. Gallbladder and biliary tree: Patient is status post cholecystectomy. No intra- or extrahepatic bilia ry ductal dilation. Pancreas: The pancreas is unremarkable. No peripancreatic fluid collections or fat stranding seen. Spleen: Unremarkable. Adrenals: Unremarkable. Kidneys and ureters: Unremarkable. Bladder: Unremarkable. Reproductive organs: Unremarkable. Bowel: Unremarkable. Lymph nodes Retroperitoneal: Unremarkable. Pelvic: Unremarkable. Mesenteric: Unremarkable. Peritoneum: Normal. Vessels: Unremarkable. Abdominal wall: Unremarkable. Bones: Degenerative changes in the visualized spine. IMPRESSION: No evidence of peripancreatic edema or surrounding fluid collections. No acute abnormalities. ACT 112: Negative or not required by law. Electronically signed by: Loco Mijares M.D. 06/26/2022 12:38 PM
--- NOTE | 2022-06-26 13:42 | Discharge Summary ---
Date of Service June 26, 2022 Admission HPI Per Admitting Provider 52 yo F with PMH cholecystectomy, SBO, 2 previous pancreatitis episodes, NEL, MDD, cervical radiculopathy s/p cervical fusion presenting with abdominal pain. Pt began to experience epigastric abdominal pain with radiation to left-side of torso, chest and back along with associated nausea, NBNB emesis, watery diarrhea and reduced appetite for about 2 weeks. Symptoms have continually progressed with minimal relief. This does feel similar to her previous episodes of pancreatitis (most recent 10/04 due to gallstones for which she had cholecystectomy). She denies significant alcohol use or history of dyslipidemia. No sick contacts or recent travel. Denies fevers, chills, dyspnea. Pt arrived to ER hemodynamically stable. Labs significant for Na 134, K 3.4, AST 155, ALT 88, lipase 164, UA with LE + WBCs + bacteria + nitrites, D-dimer 2010. EKG unremarkable, CXR without acute process. Chest CTA negative. CTAP with fat stranding around pancreas. ER interventions include IVF repletion, Dilaudid, morphine, Toradol and ceftriaxone. On my evaluation, pt reports continued abdominal pain but does note some relief from the pain medications. Principal Diagnosis acute pancreatitis, UTI Discharge Exam The patient is awake, alert and oriented 3, well developed and well nourished, normocephalic and atraumatic, lying in bed and in no acute distress. HEENT--PERRL, EOMI, mucous membranes and oropharynx mildly dry Neck--supple. No JVD. No bruits. Thyroid normal, trachea midline, no adenopathy. Heart--normal S1 and S2. No murmurs, rubs or gallops. Lungs--clear bilaterally, no respiratory distress, no accessory muscle use. Abdomen--mild epigastric tenderness Extremities--no cyanosis or clubbing. No edema. Dermatologic--normal skin turgor, normal color, no abnormal lymph nodes, no rash. Neurologic--cranial nerves II through XII grossly intact. Rheumatologic--normal range of motion. Psychiatric--normal affect. Discharge Data Allergies Allergy/AdvReac Type Severity Reaction Status Date / Time rizatriptan Allergy Severe Difficulty Verified 06/21/22 01:03 Breathing benzoin Allergy Intermediate USED TO Verified 06/21/22 01:03 PUT UNDER STERI STRIPS TO KEEP THEM ON -- BLISTERS tramadol AdvReac Intermediate N/V Verified 06/21/22 01:03 Consultations 06/21/22 05:50 ED Decision to Admit Stat Ordered Studies 06/21/22 00:58 CT abd pelvis IV con only Stat 06/21/22 02:27 CT angio chest PE protocol Stat 06/23/22 09:16 CT Abd and Pelvis [CT abd pelvis wo con] Routine 06/26/22 10:58 CT Abd and Pelvis [CT abd pelvis wo con] Routine Hospital Course (1) Acute pancreatitis: -Clinical history and workup consistent with acute pancreatitis -Unclear cause as pt does not endorse significant ETOH use, no triglyceridemia, s/p cholecystectomy, home medications are not common culprits for pancreatitis -pain is getting better, repeat CT showed some improvement in pancreatic swelling compared to admission, repeat Ct today showed resolution of inflammation -Tolertaing diet better -d/c home (2) UTI (urinary tract infection): -Pt reports dysuria and UA on admission suggesting infection -Urine culture growing E coli [place] sensitive -Now on PO Levaquin for 3 more days (3) Elevated LFTs: -Mild transaminitis noted on admission -Likely reactive to acute inflammatory state -Trend CMP (4) Hypokalemia: Replace (5) Hyponatremia: -resolved (6) MDD (major depressive disorder): -Resume home sertraline, Wellbutrin (7) NEL (generalized anxiety disorder): -Resume home buspirone, clonazepam (8) Cervical radiculopathy: -Resume home gabapentin (9) Constipation: resolved Plan Code status: Full DVT ppx: Lovenox continue hopsitalization, hopefully d/c tomorrow Total Time Total Time Spent Total Time Spent (In Minutes): d/c home Discharge Plan Discharge Items Patient Disposition: Home - Self-Care Reason For Visit: PAIN IN CHEST,PAIN IN PANCREAS AREA AND BACK,VOMIT Discharge Diagnosis: acute pancreatitis Condition on Discharge: Good Activity: Resume your previous activity Non-emergency contact: Primary Care Provider Call non-emergency contact if: you have any medication questions and your symptoms worsen Follow-up/Referrals: Dominga Connolly CRNP [Primary Care Provider] - 07/02/22 3:45 pm (with Dr. Cruz) Diet: Low Fat Addtl Attending Provider Instructions: please make appointment to follow up with your PCP Pending Studies at Discharge: No Stand-Alone Forms: My [facility], Smoking Cessation Medications and DC Order Prescriptions: New levofloxacin 250 mg Tablet 250 mg PO DAILY@1100 3 Days Qty: 3 0RF amlodipine [Norvasc] 5 mg Tablet 5 mg PO QAM 30 Days Qty: 30 0RF Continued clonazepam 1 mg tablet 1 mg PO BID PRN (Reason: Anxiety) bupropion HCl [Wellbutrin XL] 150 mg tablet extended release 24 hr 150 mg PO QAM acetaminophen [Tylenol Extra Strength] 500 mg Tablet 1,000 mg PO DIRECTED PRN (Reason: Pain) buspirone 10 mg tablet 20 mg PO BID oxycodone-acetaminophen 7.5-325 mg tablet 1 tab PO QID PRN (Reason: Pain) gabapentin 400 mg capsule 800 mg PO BID sertraline 50 mg tablet 75 mg PO QAM Discharge Orders: Discharge Order (Routine); Ordered 06/26/22 Ordered By: Marcos Kaur/Other Patient Handouts: Pancreatitis Acute Dc Admission Data Admit Date/Time: 06/21/22 06:13 Attending Provider: Marcos Hayes Admit Provider: Jarred Mckenzie Primary Care Provider: Dominga Connolly Other Providers: Wilton Alvarez Other Interventions: Discharge Summary Assessment (RN) Last Done: 06/26/22 13:23 Coding Level of Care Code 87217 INP/OBS DISCH >30 MIN Diagnoses Acute pancreatitis K85.90 Acute pancreatitis complication: unspecified Pancreatitis type: unspecified pancreatitis type UTI (urinary tract infection) N30.00 Hematuria presence: without hematuria Urinary tract infection type: acute cystitis Elevated LFTs R79.89 Hypokalemia E87.6 Hyponatremia E87.1 MDD (major depressive disorder) F32.9 NEL (generalized anxiety disorder) F41.1 Cervical radiculopathy M54.12 Constipation K59.00 Time Spent (min) 35
== END 2022-06-26 14:43 | disposition home or self-care (01) | DRG 439 ==
LOC: ED 00:33 → SUATTDRO 06:13 → 3N 06:13

== ENCOUNTER 2022-07-15 19:18 | Inpatient (IN) ==
[2022-07-15] MEDS ORDERED: HYDROmorphone INJ 0.5 MG/0.5 ML SYR IV STA (19:30)
[2022-07-15] MEDS ORDERED: SODIUM CHLORIDE 0.9% 1000ML 1,000 ML IV STA (19:30)
[2022-07-15] MEDS ORDERED: ONDANSETRON INJ 2 MG/ML 2 ML VIAL IV STA ×2 (19:30→22:04)
--- NOTE | 2022-07-15 19:51 | Emergency Department Note ---
Impression & Plan Intractable abdominal pain, Chronic recurrent pancreatitis, Nausea ED Provider Note Provider: Pa Aguila MD DATE OF SERVICE: 07/15/2022 CHIEF COMPLAINT: Vomiting, severe abdominal pain HISTORY OF PRESENT ILLNESS: Patient is a 52-year-old female history of unfortunate pancreatitis presenting here today with recurrence of symptoms. Was hospitalized several weeks ago for pancreatitis. Since discharge has had several briefer episodes lasting several hours of abdominal pain. Evidently s evere pain assistance since this morning. Having vomiting. No trauma reported. Ongoing issues for some time and does not appear that they found a clear etiology for her symptoms. Prior cholecystectomy reported last summer. Limited intake today. Feels thirsty PAST MEDICAL HISTORY: As noted above MEDICATIONS: Reviewed home medications SOCIAL HISTORY: Here with PHYSICAL EXAM: GENERAL: Balled up on the bed crying holding her legs and abdomen. Head: normocephalic and atraumatic EYES: No injection or icterus although somewhat tearful due to pain upon initial evaluation NECK: Trachea midline. ENT: Mucous membranes pink and moist. LUNGS: Airway patent. No retractions but some slight tachypnea she is breathing through pain. HEART: Regular rate and rhythm ABDOMEN: Diffuse tenderness with guarding. SKIN: Acyanotic, warm, dry EXTREMITIES: Without swelling, tenderness or deformity NEUROLOGICAL: No focal deficits moving all extremities. No facial droop or slurred speech but tearful and in significant pain upon initial evaluation. EK bpm sinus tachycardia. No PVC or PAC. No acute ST segment elevation with some baseline artifact. QTc 466. CONTINUOUS CARDIAC MONITORING: was ordered and showed a heart rate of 80s-100s bpm in normal sinus rhythm to sinus tachycardia Patient's laboratory studies and imaging reviewed. Differential includes Appendicitis, ovarian cyst, ovarian torsion, ectopic , TOA, PID, infections, diverticulitis, UTI, obstruction, mesenteric ischemia, aortic pathology, inflammatory bowel disease, renal colic, PUD, pancreatitis, biliary pathology, hernia, volvulus, constipation, as well as other pathologies. IMPRESSION/MEDICAL DECISION MAKING: Patient with significant history. Reports similarities to prior episodes of pancreatitis. Basic blood work was obtained here including lipase. We will complete a CT scan given his significant history. Very tearful and in significant pain upon initial presentation. Given Dilaudid and Zofran IV for some symptom control. EKG obtained given history lower suspicion this represe nts cardiac etiology. Troponin was sent as well for completeness. Did review recent hospital admission and imaging at that time did not have evidence of any pseudocyst. Troponin, blood counts, and lipase were not significant elevated doubt cardiac disease, infection, and without transaminitis concerning for pancreatitis. Required additional doses of IV Dilaudid for pain control as well as IV fluids and additional Zofran. Urinalysis sent. UA unrevealing. COVID- negative. Sent for CT scan of the abdomen pelvis. CT per radiology report eventually returns without significant inflammatory changes or acute process noted by their report. Patient with severe intractable pain and recurrent nausea and vomiting. Seems consistent unfortunately likely consistent with a recurrence of her pancreatitis symptoms. Discussed with patient and at bedside. Given her severe intractable pain patient not tolerating oral intake. Has follow-up with [place] [facility] for new GI evaluation this coming Saturday. Did discuss with her that unfortunately we will unlikely be able to totally solve or diagnose the exact etiology of her entire issue if she stays but given her uncontrolled pain in shared decision making discussed with the hospitalist. DIAGNOSIS: Abdominal pain, chronic recurrent pancreatitis, nausea DISPOSITION: Hospitalist will evaluate Patient was agreeable with this plan as was her given her uncontrolled pain and nausea Past Med/Surg History Medical History Cervical disc herniation (02/18/14) Cervical radiculopathy GOOD ROM PER PT Chronic low back pain Chronic neck pain Disc degeneration, lumbar Dysuria Electrolyte abnormality NEL (generalized anxiety disorder) Hematuria Hx of migraines Hydronephrosis, right Intractable abdominal pain Lab test negative for COVID-19 virus MDD (major depressive disorder) Migraine [place] Osteoarthritis Peripheral neuropathy Urge and stress incontinence Urinary retention UTI (urinary tract infection) Surgical History H/O abdominal surgery (10/27/21) Laparoscopic Washout S/P Laparoscopic Cholecystectomy(Not Applicable) - Sukumar Wood DO H/O hand surgery repair of hand injury due to a dog bite H/O wrist surgery History of breast biopsy History of cystoscopy History of esophagogastroduodenoscopy (EGD) History of mandibular surgery History of robot-assisted laparoscopic hysterectomy Hx of abdominal surgery (10/25/21) p Diagnostic Laparoscopy with Pelvic Washings(Not Applicable) - Sukumar Wood, DO s Laparoscopic Cholecystectomy - Sukumar Wood, DO Hx of cystoscopy (~08/15/20) TURBT with stent placement [facility] Hx of lumpectomy LEFT (BENIGN) S/P cervical spinal fusion C4-C5 & C5-C6. TOTAL OF 3 FUSIONS ([facility]). LIMITED RANGE TO LEFT. HAS BEEN INTUBATED SINCE. Cervical Arthroplasty C4-C5 02/18/14: MAC #3, ETT #7.0, Grade 1 View, Smooth intubation on 1st attempt S/P hardware removal CERVICAL S/P ureteral stent placement Family History Father Cardiac disorder Malignant neoplasm of colon Prostate cancer Colorectal cancer Aunt Breast cancer Denies family history of Ovarian cancer Social History Smoking Status: Never smoker Second Hand Exposure: No; Hx Alcohol Use: No Hx Substance Use: No Preferred Language: Russian Communication Ability: Effective Visual Impairment: No Limitations Public Events Facilities Rental Manager Required: No Beliefs That Will Affect Care: None marital status: Current Living Situation: Spouse and Family Current Living Situation Comment: at home How many Children do You have: 2 Feels Safe at Home: Yes Assistive Devices: None Allergies Allergies Allergy/AdvReac Type Severity Reaction Status Date / Time rizatriptan Allergy Severe Difficulty Verified 07/15/22 20:02 Breathing benzoin Allergy Intermediate USED TO Verified 07/15/22 20:02 PUT UNDER STERI STRIPS TO KEEP THEM ON -- BLISTERS tramadol AdvReac Intermediate N/V Verified 07/15/22 20:02 Home Meds Home Medications Medication Instructions Recorded Confirmed clonazepam 1 mg tablet 1 mg PO BID PRN Anxiety 02/10/18 07/15/22 acetaminophen 500 mg tablet 1,000 mg PO DIRECTED PRN Pain 09/19/19 07/15/22 (Tylenol Extra Strength) bupropion HCl 150 mg 24 hr tablet, 150 mg PO QAM 09/19/19 07/15/22 extended release (Wellbutrin XL) gabapentin 400 mg capsule 800 mg PO BID 06/26/20 07/15/22 sertraline 50 mg tablet 75 mg PO QAM 06/26/20 07/15/22 buspirone 10 mg tablet 20 mg PO BID 06/21/22 07/15/22 oxycodone-acetaminophen 7.5 mg-325 1 tab PO QID PRN Pain 06/21/22 07/15/22 mg tablet omeprazole 20 mg capsule,delayed 20 mg PO BID 07/15/22 07/15/22 release Previous Rx's Medication Instructions Recorded amlodipine 5 mg tablet (Norvasc) 5 mg PO QAM 30 days #30 tabs 06/26/22 Results & Data (ED) Vital Signs Vital Signs - 24 hr 07/15/22 19:25 07/15/22 20:03 07/15/22 21:20 Pulse Rate 115 H Pulse Rate [Right Finger] 90 Pulse Rhythm [Right Finger] Regular Pulse Strength [Right Finger] Normal Respiratory Rate 20 20 Respiratory Effort / Characteristics Non-Labored Spontaneous Non-Labored Spontaneous Respiratory Depth Normal Normal Blood Pressure 132/72 Blood Pressure [Right Arm] 145/75 H Blood Pressure Mean 92 Blood Pressure Mean [Right Arm] 98 Pulse Oximetry 96 98 94 Oxygen Delivery Method Room Air Room Air Room Air Sepsis Recent Fever Within 48 Hours No Sepsis New/Unexplained Change in Mental Status N/A Sepsis Action Taken by Nursing No Action Required Laboratory Data 07/15/22 19:52 07/15/22 19:52 Lab Results 07/15/22 07/15/22 07/15/22 Range/Units 19:52 19:52 19:52 WBC 7.40 (4.8-10.8) K/ul RBC 4.32 (4.20-5.40) M/uL Hgb 14.3 (12.0-16.0) g/dl Hct 39.4 (37.0-47.0) % MCV 91.2 (80.0-100.0) fL MCH 33.1 (25.0-34.0) pg MCHC 36.3 H (32.0-36.0) g/dL RDW Std Deviation 43.3 (36.4-46.3) fL RDW Coeff of Angelique 12.9 (11.5-14.5) % Plt Count 410 H (130-400) K/uL MPV 9.7 (9.4-12.4) fL Immature Gran % (Auto) 0.3 % Neut % (Auto) 45.9 % Lymph % (Auto) 40.8 % [place] % (Auto) 5.5 % Eos % (Auto) 5.3 % Baso % (Auto) 2.2 % Neut # (Auto) 3.40 (1.40-6.50) K/uL Lymph # (Auto) 3.02 (1.2-3.4) K/uL [place] # (Auto) 0.41 (0.11-0.59) K/uL Eos # (Auto) 0.39 (0-0.50) K/uL Baso # (Auto) 0.16 (0-0.2) K/uL Immature Gran # (Auto) 0.02 (0.01-0.20) K/uL Sodium 141 (136-145) mmol/L Potassium 3.5 (3.5-5.1) mmol/L Chloride 105 (98-107) mmol/L Carbon Dioxide 21 (21-32) mmol/L Anion Gap 15 H (3-11) BUN 20 (6-23) mg/dl Creatinine 0.73 (0.6-1.2) mg/dl Est Cr Clr Drug Dosing 93.2 ml/min Est GFR ( Amer) 109.7 ml/min Est GFR (Non-Af Amer) 94.7 ml/min BUN/Creatinine Ratio 27.4 H (10-20) Glucose 73 (70-99(Fasting)) mg/dl Calcium 9.4 (8.6-10.3) mg/dl Total Bilirubin 1.1 H (0.2-1.0) mg/dl AST 34 (13-39) U/L ALT 25 (7-52) U/L Alkaline Phosphatase 129 H (34-104) U/L Troponin I High Sens 6.5 (0-14) pg/ml Total Protein 7.1 (6.0-8.3) gm/dl Albumin 4.7 (3.4-5.0) gm/dl Globulin 2.4 L (2.5-4.0) gm/dl Albumin/Globulin Ratio 2.0 (0.9-2) Lipase 46 (11-82) U/L HCG, Qual Negative (Negative) Urine Color Urine Appearance (Clear) Urine pH (4.5-7.5) Ur Specific [place] (1.000-1.030) Urine Protein (Negative) Urine Glucose (UA) (Negative) Urine Ketones (Negative) Urine Blood (Negative) Urine Nitrite (Negative) Urine Bilirubin (Negative) Urine Urobilinogen (Negative) Ur Leukocyte Esterase (Negative) SARS-CoV-2, RNA, NAAT (NEGATIVE) 07/15/22 07/15/22 Range/Units 20:00 20:55 WBC (4.8-10.8) K/ul RBC (4.20-5.40) M/uL Hgb (12.0-16.0) g/dl Hct (37.0-47.0) % MCV (80.0-100.0) fL MCH (25.0-34.0) pg MCHC (32.0-36.0) g/dL RDW Std Deviation (36.4-46.3) fL RDW Coeff of Angelique (11.5-14.5) % Plt Count (130-400) K/uL MPV (9.4-12.4) fL Immature Gran % (Auto) % Neut % (Auto) % Lymph % (Auto) % [place] % (Auto) % Eos % (Auto) % Baso % (Auto) % Neut # (Auto) (1.40-6.50) K/uL Lymph # (Auto) (1.2-3.4) K/uL [place] # (Auto) (0.11-0.59) K/uL Eos # (Auto) (0-0.50) K/uL Baso # (Auto) (0-0.2) K/uL Immature Gran # (Auto) (0.01-0.20) K/uL Sodium (136-145) mmol/L Potassium (3.5-5.1) mmol/L Chloride (98-107) mmol/L Carbon Dioxide (21-32) mmol/L Anion Gap (3-11) BUN (6-23) mg/dl Creatinine (0.6-1.2) mg/dl Est Cr Clr Drug Dosing ml/min Est GFR ( Amer) ml/min Est GFR (Non-Af Amer) ml/min BUN/Creatinine Ratio (10-20) Glucose (70-99(Fasting)) mg/dl Calcium (8.6-10.3) mg/dl Total Bilirubin (0.2-1.0) mg/dl AST (13-39) U/L ALT (7-52) U/L Alkaline Phosphatase (34-104) U/L Troponin I High Sens (0-14) pg/ml Total Protein (6.0-8.3) gm/dl Albumin (3.4-5.0) gm/dl Globulin (2.5-4.0) gm/dl Albumin/Globulin Ratio (0.9-2) Lipase (11-82) U/L HCG, Qual (Negative) Urine Color Yellow Urine Appearance Clear (Clear) Urine pH 6.5 (4.5-7.5) Ur Specific [place] 1.006 (1.000-1.030) Urine Protein Negative (Negative) Urine Glucose (UA) Negative (Negative) Urine Ketones Negative (Negative) Urine Blood Negative (Negative) Urine Nitrite Negative (Negative) Urine Bilirubin Negative (Negative) Urine Urobilinogen Negative (Negative) Ur Leukocyte Esterase Negative (Negative) SARS-CoV-2, RNA, NAAT NEGATIVE (NEGATIVE) Administered Medications Discontinued Medications Hydromorphone HCl (Hydromorphone Inj 0.5 Mg/0.5 Ml Syr) 0.5 mg IV NOW STA Stop: 07/15/22 19:31 Last Admin: 07/15/22 19:55 Dose: 0.5 mg Documented By: CARA Hydromorphone HCl (Hydromorphone Inj 1 Mg/Ml Syringe) 1 mg IV NOW STA Stop: 07/15/22 20:31 Last Admin: 07/15/22 20:44 Dose: 1 mg Documented By: CARA Hydromorphone HCl (Hydromorphone Inj 1 Mg/Ml Syringe) 1 mg IV NOW STA Stop: 07/15/22 22:05 Last Admin: 07/15/22 22:13 Dose: 1 mg Documented By: LUIS Sodium Chloride (Nss 1000ml) 1,000 mls @ 999 mls/hr IV .Q1H1M STA Stop: 07/15/22 20:30 Last Infusion: 07/15/22 20:38 Dose: 0 mls/hr Documented By: Admin: 07/15/22 19:53 Dose: 999 mls/hr Documented By: CARA Sodium Chloride (Nss 1000ml) 1,000 mls @ 999 mls/hr IV .Q1H1M ONE Stop: 07/15/22 23:35 Last Admin: 07/15/22 22:39 Dose: 999 mls/hr Documented By: LUIS Ioversol (Optiray 350 100ml) 83 ml IV ONCE ONE Stop: 07/15/22 21:02 Last Admin: 07/15/22 21:02 Dose: 83 ml Documented By: BRANDON Ondansetron HCl (Ondansetron Inj 2 Mg/Ml 2 Ml Vial) 4 mg IV NOW STA Stop: 07/15/22 19:31 Last Admin: 07/15/22 19:54 Dose: 4 mg Documented By: CARA Ondansetron HCl (Ondansetron Inj 2 Mg/Ml 2 Ml Vial) 4 mg IV NOW STA Stop: 07/15/22 22:05 Last Admin: 07/15/22 22:10 Dose: 4 mg Documented By: LUIS Imaging Data Radiologist's Impression: Abdomen/Pelvis CT 07/15/22 19:30 Exam(s): CT ABDOMEN + PELVIS With Contrast IV Amt: 83ML OPTIRAY 350 EXAM: CT Abdomen and Pelvis With Intravenous Contrast CLINICAL HISTORY: Reason for exam: mid abd pain, hx pancreatitis. TECHNIQUE: Axial computed tomography images of the abdomen and pelvis with intravenous contrast. CTDI is 6.88 mGy and DLP is 327.73 mGy-cm. Automated exposure control was utilized for the study. A dose lowering technique was utilized adhering to the principles of ALARA. CONTRAST: Patient received 83ML OPTIRAY 350 of IV contrast COMPARISON: 06/21/22 FINDINGS: Lung bases are clear. Gallbladder surgically absent. There is mild intra-hepatic biliary dilatation and mild enlargement of the common bile duct, similar to prior, likely reservoir effect. Liver, spleen, and adrenal glands are unremarkable. Pancreas appears normal by CT, without evidence of acute pancreatitis. Kidneys enhance symmetrically. There is no hydronephrosis or perinephric stranding. Aorta is normal in caliber. There is no adenopathy. There is no free air or significant free fluid. Appendix is normal. There is no bowel obstruction or inflammation. Uterus is surgically absent. Urinary bladder is unremarkable. Regional skeleton appears intact. IMPRESSION: No CT evidence of acute or inflammatory process. Electronically signed by: Maikol Guevara M.D. 07/15/22 22:35 PM Discharge Plan Visit Data Chief Complaint: Abdominal Pain Stated Complaint: ABDOMINAL PAIN ED Provider: Pa Aguila Discharge Problem: Intractable abdominal pain, Chronic recurrent pancreatitis, Nausea Patient Disposition: Being Evaluated by Hospitalist Forms Stand Alone Forms: My [facility] Prescriptions Prescriptions: No Action clonazepam 1 mg tablet 1 mg PO BID PRN (Reason: Anxiety) bupropion HCl [Wellbutrin XL] 150 mg tablet extended release 24 hr 150 mg PO QAM acetaminophen [Tylenol Extra Strength] 500 mg Tablet 1,000 mg PO DIRECTED PRN (Reason: Pain) buspirone 10 mg tablet 20 mg PO BID oxycodone-acetaminophen 7.5-325 mg tablet 1 tab PO QID PRN (Reason: Pain) amlodipine [Norvasc] 5 mg Tablet 5 mg PO QAM 30 Days Qty: 30 0RF gabapentin 400 mg capsule 800 mg PO BID sertraline 50 mg tablet 75 mg PO QAM omeprazole 20 mg capsule,delayed release(DR/EC) 20 mg PO BID Referrals Referrals: Dominga Connolly CRNP [Primary Care Provider] -
[2022-07-15 20:13] LABS: Basophils # (auto) 0.16 K/uL (0-0.2); Basophils % (auto) 2.2 %; Eosinophils # (auto) 0.39 K/uL (0-0.50); Eosinophils % (auto) 5.3 %; Hematocrit (blood only) 39.4 % (37.0-47.0); Hemoglobin 14.3 g/dl (12.0-16.0); Immature Granulocytes # (auto) 0.02 K/uL (0.01-0.20); Immature Granulocytes % (auto) 0.3 %; Lymphocytes # (auto) 3.02 K/uL (1.2-3.4); Lymphocytes % (auto) 40.8 %; Mean Corpuscular Hemoglobin 33.1 pg (25.0-34.0); Mean Corpuscular Hgb Conc 36.3 g/dL (32.0-36.0); Mean Corpuscular Volume 91.2 fL (80.0-100.0); Mean Platelet Volume 9.7 fL (9.4-12.4); Monocytes # (auto) 0.41 K/uL (0.11-0.59); Monocytes % (auto) 5.5 %; Neutrophils % (auto) 45.9 %; Platelet Count 410 K/uL (130-400); RDW Coefficient of Variation 12.9 % (11.5-14.5); RDW Standard Deviation 43.3 fL (36.4-46.3); Red Blood Count 4.32 M/uL (4.20-5.40)
[2022-07-15 20:28] LABS: Albumin Level 4.7 gm/dl (3.4-5.0); BUN Creatinine Ratio 27.4 (10-20); Bilirubin,Total 1.1 mg/dl (0.2-1.0); Calcium 9.4 mg/dl (8.6-10.3); Creatinine Clr Calc Pharmacy 93.2 ml/min; Est GFR (African American) 109.7 ml/min; Est GFR (Non-African American) 94.7 ml/min; Globulin 2.4 gm/dl (2.5-4.0); Potassium 3.5 mmol/L (3.5-5.1); Total Protein 7.1 gm/dl (6.0-8.3)
[2022-07-15] MEDS ORDERED: HYDROmorphone INJ 1 MG/ML SYRINGE IV STA ×2 (20:30→22:04)
[2022-07-15 20:32] LABS: Pregnancy Test, Serum Negative (Negative)
[2022-07-15 20:35] LABS: Troponin I High Sensitivity 6.5 pg/ml (0-14)
[2022-07-15] MEDS ORDERED: OPTIRAY 350 100ml IV ONE (21:01)
[2022-07-15 21:28] LABS: Appearance Urine Clear (Clear); Bilirubin Urine Negative (Negative); Blood Urine Negative (Negative); Color Urine Yellow; Glucose Urine UA Negative (Negative); Ketones Urine Negative (Negative); Leukocyte Esterase Urine Negative (Negative); Nitrite Urine Negative (Negative); Protein Urine Negative (Negative); Specific Gravity Urine 1.006 (1.000-1.030); Urobilinogen Urine Negative (Negative); pH Urine 6.5 (4.5-7.5)
[2022-07-15] MEDS ORDERED: SODIUM CHLORIDE 0.9% 1000ML 1,000 ML IV ONE (22:35)
--- NOTE | 2022-07-15 22:36 | CT Scan Report ---
Exam(s): CT ABDOMEN + PELVIS With Contrast IV Amt: 83ML OPTIRAY 350 EXAM: CT Abdomen and Pelvis With Intravenous Contrast CLINICAL HISTORY: Reason for exam: mid abd pain, hx pancreatitis. TECHNIQUE: Axial computed tomography images of the abdomen and pelvis with intravenous contrast. CTDI is 6.88 mGy and DLP is 327.73 mGy-cm. Automated exposure control was utilized for the study. A dose lowering technique was utilized adhering to the principles of ALARA. CONTRAST: Patient received 83ML OPTIRAY 350 of IV contrast COMPARISON: 06/21/22 FINDINGS: Lung bases are clear. Gallbladder surgically absent. There is mild intra-hepatic biliary dilatation and mild enlargement of the common bile duct, similar to prior, likely reservoir effect. Liver, spleen, and adrenal glands are unremarkable. Pancreas appears normal by CT, without evidence of acute pancreatitis. Kidneys enhance symmetrically. There is no hydronephrosis or perinephric stranding. Aorta is normal in caliber. There is no adenopathy. There is no free air or significant free fluid. Appendix is normal. There is no bowel obstruction or inflammation. Uterus is surgically absent. Urinary bladder is unremarkable. Regional skeleton appears intact. IMPRESSION: No CT evidence of acute or inflammatory process. Electronically signed by: Maikol Guevara M.D. 07/15/22 22:35 PM
--- NOTE | 2022-07-16 00:26 | History & Physical Report ---
Date of Service July 16, 2022 Assessment & Plan (1) Intractable abdominal pain: Plan: 52 yo F with PMHx of cholecystectomy, SBO, pancreatitis episodes x3, NEL, MDD, cervical radiculopathy s/p cervical fusion presenting with abdominal pain. #Intractable abdominal pain #H/o pancreatitis #H/o cholecystectomy -1 day severe epigastric and left sided abdominal pain with N/V. Has had 4 episodes like this since discharge from [facility] 06/26 for acute pancreatitis. No leukocytosis. Lipase normal. Afebrile. -CT A/P without acute or inflammatory process -received 2.5mg dilaudid 1L bolus IVF x2 in ED. Pt still with pain a few hours after. Will refrain from further opioids at this time. -IV tylenol and toradol for pain -IV zofran for nausea -IV pepcid and PPI scheduled -Maintenance IVF. NPO. -CTA A/P ordered to r/o ischemic bowel or SMA -consider GI consult #Depression and Anxiety -cont. wellbutrin, buspirone, sertraline, clonazepam #Cervical radiculopathy -cont. gabapentin DVT ppx: SCDs FEN/GI: NPO, IVF @ 100ml/hr Code Status: Full Dispo: Med Surg (2) MDD (major depressive disorder): (3) Nausea & vomiting: (4) History of pancreatitis: (5) NEL (generalized anxiety disorder): History of Present Illness Chief Complaint: abdominal pain Primary Care Provider: Dominga Cathleen 52 yo F with PMHx of cholecystectomy, SBO, pancreatitis episodes x3, NEL, MDD, cervical radiculopathy s/p cervical fusion presenting with abdominal pain. She was recently discharged from [facility] on 06/26 for acute pancreatitis. Since then she has had 4 episodes similar to her presentation today but states her current episode has been the worst. Denies specific trigger. Pain began morning of 07/15 and has been worsening since. Pain located in epigastric region with radiation down to LLQ. Associated vomiting, nausea, and diarrhea. Denies fevers, headache, fatigue, chest pain, sob, dysuria. Has had limited food intake today. Allergies Allergy/AdvReac Type Severity Reaction Status Date / Time rizatriptan Allergy Severe Difficulty Verified 07/15/22 20:02 Breathing benzoin Allergy Intermediate USED TO Verified 07/15/22 20:02 PUT UNDER STERI STRIPS TO KEEP THEM ON -- BLISTERS tramadol AdvReac Intermediate N/V Verified 07/15/22 20:02 Home Medications Medication Instructions Recorded Confirmed Type clonazepam 1 mg tablet 1 mg PO BID PRN Anxiety 02/10/18 07/15/22 History acetaminophen 500 mg tablet 1,000 mg PO DIRECTED PRN Pain 09/19/19 07/15/22 History (Tylenol Extra Strength) bupropion HCl 150 mg 24 hr tablet, 150 mg PO QAM 09/19/19 07/15/22 History extended release (Wellbutrin XL) gabapentin 400 mg capsule 800 mg PO BID 06/26/20 07/15/22 History sertraline 50 mg tablet 75 mg PO QAM 06/26/20 07/15/22 History buspirone 10 mg tablet 20 mg PO BID 06/21/22 07/15/22 History oxycodone-acetaminophen 7.5 mg-325 1 tab PO QID PRN Pain 06/21/22 07/15/22 History mg tablet amlodipine 5 mg tablet (Norvasc) 5 mg PO QAM 30 days #30 tabs 06/26/22 07/15/22 Rx omeprazole 20 mg capsule,delayed 20 mg PO BID 07/15/22 07/15/22 History release ergocalciferol (vitamin D2) 1,250 50,000 unit PO WK 2 months #7 caps 07/22/22 Rx mcg (50,000 unit) capsule oxycodone-acetaminophen 10 mg-325 1 tab PO QID PRN pain #12 tabs 07/22/22 Rx mg tablet Past Med/Surg History Medical History Cervical disc herniation (02/18/14) Cervical radiculopathy GOOD ROM PER PT Chronic low back pain Chronic neck pain Disc degeneration, lumbar Dysuria Electrolyte abnormality NEL (generalized anxiety disorder) Hematuria Hx of migraines Hydronephrosis, right Intractable abdominal pain Lab test negative for COVID-19 virus MDD (major depressive disorder) Migraine [place] Osteoarthritis Peripheral neuropathy Urge and stress incontinence Urinary retention UTI (urinary tract infection) Surgical History H/O abdominal surgery (10/27/21) Laparoscopic Washout S/P Laparoscopic Cholecystectomy(Not Applicable) - Sukumar Wood, DO H/O hand surgery repair of hand injury due to a dog bite H/O wrist surgery History of breast biopsy History of cystoscopy History of esophagogastroduodenoscopy (EGD) History of mandibular surgery History of robot-assisted laparoscopic hysterectomy Hx of abdominal surgery (10/25/21) p Diagnostic Laparoscopy with Pelvic Washings(Not Applicable) - Sukumar Wood, DO s Laparoscopic Cholecystectomy - Sukumar Wood, DO Hx of cystoscopy (~08/15/20) TURBT with stent placement [facility] Hx of lumpectomy LEFT (BENIGN) S/P cervical spinal fusion C4-C5 & C5-C6. TOTAL OF 3 FUSIONS ([facility]). LIMITED RANGE TO LEFT. HAS BEEN INTUBATED SINCE. Cervical Arthroplasty C4-C5 02/18/14: MAC #3, ETT #7.0, Grade 1 View, Smooth intubation on 1st attempt S/P hardware removal CERVICAL S/P ureteral stent placement Family History Father Cardiac disorder Malignant neoplasm of colon Prostate cancer Colorectal cancer Aunt Breast cancer Denies family history of Ovarian cancer Social History Smoking Status: Never smoker Second Hand Exposure: No; Do You Dip or Chew Tobacco: No; Hx Alcohol Use: No Hx Substance Use: No Preferred Language: Cambodian Communication Ability: Effective Visual Impairment: No Limitations Massotherapist Required: No Beliefs That Will Affect Care: None marital status: Current Living Situation: Spouse and Family Current Living Situation Comment: at home How many Children do You have: 2 Feels Safe at Home: Yes Safety Concerns: Feels Safe At This Time Assistive Devices: None Review of Systems Review of Systems: All systems reviewed & are unremarkable except as noted in HPI & below Physical Exam Physical Exam: Constitutional: in no acute distress, pleasant, sad affect, intact memory. AOx3. Vitals as above. HEENT: No scleral injection or discharge.Dry mucous membranes. Neck: Supple without lymphadenopathy or thyromegaly. Trachea midline. Lungs: Clear to auscultation bilaterally with good effort. Cardiac: Regular rate and rhythm. No murmurs. No extremity edema. 2+ distal peripheral pulses. Abdomen:Bowel sounds present. Soft and nondistended.Tender over epigastric region, LUQ, LLQ. No guarding. No hepatosplenomegaly. MSK: No cyanosis or clubbing. Extremities motor strength 5/5. Skin: No rashes, warm, dry. Neurologic: no focal deficits Results & Data Results & Data Vital Signs (Past 12 Hours) Vital Signs Pulse Pulse Resp BP BP Pulse Ox O2 Del Method 07/15/22 21:20 90 20 145/75 H 94 Room Air 07/15/22 20:03 98 Room Air 07/15/22 19:25 115 H 20 132/72 96 Room Air Laboratory Results Laboratory Results WBC 7.40 K/ul (4.8-10.8) 07/15/22 19:52 RBC 4.32 M/uL (4.20-5.40) 07/15/22 19:52 Hgb 14.3 g/dl (12.0-16.0) 07/15/22 19:52 Hct 39.4 % (37.0-47.0) 07/15/22 19:52 MCV 91.2 fL (80.0-100.0) 07/15/22 19:52 MCH 33.1 pg (25.0-34.0) 07/15/22 19:52 MCHC 36.3 g/dL (32.0-36.0) H 07/15/22 19:52 RDW Std Deviation 43.3 fL (36.4-46.3) 07/15/22 19:52 RDW Coeff of Angelique 12.9 % (11.5-14.5) 07/15/22 19:52 Plt Count 410 K/uL (130-400) H 07/15/22 19:52 MPV 9.7 fL (9.4-12.4) 07/15/22 19:52 Immature Gran % (Auto) 0.3 % 07/15/22 19:52 Neut % (Auto) 45.9 % 07/15/22 19:52 Lymph % (Auto) 40.8 % 07/15/22 19:52 [place] % (Auto) 5.5 % 07/15/22 19:52 Eos % (Auto) 5.3 % 07/15/22 19:52 Baso % (Auto) 2.2 % 07/15/22 19:52 Neut # (Auto) 3.40 K/uL (1.40-6.50) 07/15/22 19:52 Lymph # (Auto) 3.02 K/uL (1.2-3.4) 07/15/22 19:52 [place] # (Auto) 0.41 K/uL (0.11-0.59) 07/15/22 19:52 Eos # (Auto) 0.39 K/uL (0-0.50) 07/15/22 19:52 Baso # (Auto) 0.16 K/uL (0-0.2) 07/15/22 19:52 Immature Gran # (Auto) 0.02 K/uL (0.01-0.20) 07/15/22 19:52 Sodium 141 mmol/L (136-145) 07/15/22 19:52 Potassium 3.5 mmol/L (3.5-5.1) 07/15/22 19:52 Chloride 105 mmol/L (98-107) 07/15/22 19:52 Carbon Dioxide 21 mmol/L (21-32) 07/15/22 19:52 Anion Gap 15 (3-11) H 07/15/22 19:52 BUN 20 mg/dl (6-23) 07/15/22 19:52 Creatinine 0.73 mg/dl (0.6-1.2) 07/15/22 19:52 Est Cr Clr Drug Dosing 93.2 ml/min 07/15/22 19:52 Est GFR ( Amer) 109.7 ml/min 07/15/22 19:52 Est GFR (Non-Af Amer) 94.7 ml/min 07/15/22 19:52 BUN/Creatinine Ratio 27.4 (10-20) H 07/15/22 19:52 Glucose 73 mg/dl (70-99(Fasting)) 07/15/22 19:52 Calcium 9.4 mg/dl (8.6-10.3) 07/15/22 19:52 Total Bilirubin 1.1 mg/dl (0.2-1.0) H 07/15/22 19:52 AST 34 U/L (13-39) 07/15/22 19:52 ALT 25 U/L (7-52) 07/15/22 19:52 Alkaline Phosphatase 129 U/L (34-104) H 07/15/22 19:52 Troponin I High Sens 6.5 pg/ml (0-14) 07/15/22 19:52 Total Protein 7.1 gm/dl (6.0-8.3) 07/15/22 19:52 Albumin 4.7 gm/dl (3.4-5.0) 07/15/22 19:52 Globulin 2.4 gm/dl (2.5-4.0) L 07/15/22 19:52 Albumin/Globulin Ratio 2.0 (0.9-2) 07/15/22 19:52 Lipase 46 U/L (11-82) 07/15/22 19:52 HCG, Qual Negative (Negative) 07/15/22 19:52 Urine Color Yellow 07/15/22 20:55 Urine Appearance Clear (Clear) 07/15/22 20:55 Urine pH 6.5 (4.5-7.5) 07/15/22 20:55 Ur Specific [place] 1.006 (1.000-1.030) 07/15/22 20:55 Urine Protein Negative (Negative) 07/15/22 20:55 Urine Glucose (UA) Negative (Negative) 07/15/22 20:55 Urine Ketones Negative (Negative) 07/15/22 20:55 Urine Blood Negative (Negative) 07/15/22 20:55 Urine Nitrite Negative (Negative) 07/15/22 20:55 Urine Bilirubin Negative (Negative) 07/15/22 20:55 Urine Urobilinogen Negative (Negative) 07/15/22 20:55 Ur Leukocyte Esterase Negative (Negative) 07/15/22 20:55 SARS-CoV-2, RNA, NAAT NEGATIVE (NEGATIVE) 07/15/22 20:00 Impressions Abdomen/Pelvis CT 07/15/22 19:30 Exam(s): CT ABDOMEN + PELVIS With Contrast IV Amt: 83ML OPTIRAY 350 EXAM: CT Abdomen and Pelvis With Intravenous Contrast CLINICAL HISTORY: Reason for exam: mid abd pain, hx pancreatitis. TECHNIQUE: Axial computed tomography images of the abdomen and pelvis with intravenous contrast. CTDI is 6.88 mGy and DLP is 327.73 mGy-cm. Automated exposure control was utilized for the study. A dose lowering technique was utilized adhering to the principles of ALARA. CONTRAST: Patient received 83ML OPTIRAY 350 of IV contrast COMPARISON: 06/21/22 FINDINGS: Lung bases are clear. Gallbladder surgically absent. There is mild intra-hepatic biliary dilatation and mild enlargement of the common bile duct, similar to prior, likely reservoir effect. Liver, spleen, and adrenal glands are unremarkable. Pancreas appears normal by CT, without evidence of acute pancreatitis. Kidneys enhance symmetrically. There is no hydronephrosis or perinephric stranding. Aorta is normal in caliber. There is no adenopathy. There is no free air or significant free fluid. Appendix is normal. There is no bowel obstruction or inflammation. Uterus is surgically absent. Urinary bladder is unremarkable. Regional skeleton appears intact. IMPRESSION: No CT evidence of acute or inflammatory process. Electronically signed by: Maikol Guevara M.D. 07/15/22 22:35 PM Supervising Physician Co-Signing Physician Notes Attending addendum: I have physically seen this patient, have supervised the medical residents activities, and agree with the H&P unless as otherwise noted. Assessment and Plan: Intractable abdominal pain/nausea/vomiting- Most recent discharge from [facility] on 06/[address] abdomen/pelvis today without acute process No change in pain with 2.5 mg of Dilaudid Zofran 4 mg IV every 6 hours as needed Acetaminophen 1 g IV every 8 hours as needed mild pain Toradol 15 mg IV every 6 hours as needed moderate pain Famotidine 20 mg IV every 12 hours IV fluids Order CT angiography to assess for possible ischemic bowel or SMA syndrome Consult gastroenterology Depression with anxiety- Continue Wellbutrin, buspirone, sertraline and clonazepam if able to take p.o. Remaining orders and notations as noted Resident Activity Tracking Resident Involvement: Resident Care Provided Care Provided: Adult Hospital Medicine (3) Nausea & vomiting Vomiting type: unspecified Qualified Code(s): R11.2 - Nausea with vomiting, unspecified
[2022-07-16 00:39] LABS: Chol HDL Ratio 1.3 (0-5)
[2022-07-16] MEDS ORDERED: ACETAMINOPHEN 1,000 MG/100 ML VIAL IV PRN (01:03)
[2022-07-16] MEDS ORDERED: KETOROLAC 30 MG/ML VIAL IV ONE (01:04)
[2022-07-16] MEDS: SODIUM CHLORIDE 0.9% 1000ML 1,000 ML IV SCH ×3 (01:30→21:54)
[2022-07-16] MEDS ORDERED: OPTIRAY 320 500ml IV ONE (01:43)
[2022-07-16] MEDS ORDERED: PANTOprazole 40 MG in SYRINGE 0 ML IV ONE (02:00)
--- NOTE | 2022-07-16 02:09 | CT Scan Report ---
Exam(s): CTA ABDOMEN + PELVIS With Contrast IV Amt: 114 ML OPTIRAY 320 EXAM: CT Angiography Abdomen and Pelvis With Intravenous Contrast CLINICAL HISTORY: Reason for exam: r/o ischemic bowel. TECHNIQUE: Axial computed tomographic angiography images of the abdomen and pelvis with intravenous contrast. CTDI is 7.14 mGy and DLP is 339.8 mGy-cm. Automated exposure control was utilized for the study. A dose lowering technique was utilized adhering to the principles of ALARA. MIP reconstructed images were created and reviewed. CONTRAST: Patient received 114 ML OPTIRAY 320 of IV contrast COMPARISON: CT abdomen and pelvis 07/15/22 FINDINGS: Lung bases are clear. Gallbladder is surgically absent. Enlarged common bile duct is likely due to reservoir effect. Liver is enlarged. Spleen, pancreas, adrenal glands, and kidneys are unremarkable. There is no aortic aneurysm or dissection. Celiac artery and its branches are adequately patent. SMA is adequately patent. Single bilateral renal arteries are adequately patent. LAMBERTO is adequately patent. Bilateral iliac arteries are adequately patent. There is no adenopathy, free fluid, or free air. Appendix is normal. There is no bowel obstruction or inflammation. There are no CT findings of ischemic bowel. There is no bowel wall pneumatosis. There is no portal venous gas. Uterus is surgically absent. Urinary bladder is unremarkable. Regional skeleton appears intact. IMPRESSION: 1. No acute or inflammatory process. 2. Aorta and its branch vessels appear adequately patent. 3. No CT evidence of ischemic bowel. 4. Enlarged common bile duct is similar to prior exam and most likely due to reservoir effect. However, there is laboratory evidence of biliary obstruction, consider MRCP. Electronically signed by: Maikol Guevara M.D. 07/16/22 02:08 AM
[2022-07-16] MEDS ORDERED: diphenhydrAMINE 50 MG/ML VIAL IV PRN (03:28)
[2022-07-16 06:05] LABS: Base Excess VBG -1.1 mEq/L; HCO3 VBG 24 mmol/L; Oxygen Saturation VBG 95.6 %; PCO2 VBG 42 mmHg (38-50); PO2 VBG 71 mmHg; pH VBG 7.37 (7.36-7.41)
--- NOTE | 2022-07-16 06:19 | Hospitalist Progress Note ---
Date of Service July 16, 2022 Assessment & Plan (1) Intractable abdominal pain: Plan: 52 yo F with PMHx of cholecystectomy, SBO, pancreatitis episodes x3, NEL, MDD, cervical radiculopathy s/p cervical fusion presenting with abdominal pain. Intractable abdominal pain with H/o pancreatitis and cholecystectomy -1 day severe epigastric and left sided abdominal pain with N/V. Has had 4 episodes like this since discharge from [facility] 06/26 for acute pancreatitis. No leukocytosis. Lipase normal. Afebrile. -Labs show a elevated total bilirubin of 1.1 and an alk phos of 129. -CT A/P without acute or inflammatory process. CTA with a large common bile duct and MRCP is considered due to laboratory evidence of bili obstruction. -GI consulted --It is possible she has microlithiasis of the bile duct causing this intermittent issues or perhaps even sphincter of Oddi dysfunction. --to get MRCP and then discuss with therapeutic endoscopy about EUS or ERCP -received 2.5mg dilaudid 1L bolus IVF x2 in ED. -IV tylenol and toradol for pain. Restarted home Percocet as needed 3 times a day, to help with the pain. -IV zofran for nausea -IV pepcid and PPI scheduled -Diet advanced to regular diet with low-fat. -Continue Maintenance IVF. If tolerates PO well - then d/c in am Depression and Anxiety -cont. wellbutrin, buspirone, sertraline, clonazepam Cervical radiculopathy -cont. gabapentin Chronic back pain -Follows with pain management, currently using Percocet 7.5 mg as needed. DVT ppx: SCDs FEN/GI: NPO, IVF @ 100ml/hr Code Status: Full Dispo: Med Surg (2) MDD (major depressive disorder): (3) Nausea & vomiting: (4) History of pancreatitis: (5) NEL (generalized anxiety disorder): Admission and Anticipated Discharge Date Admission Date: July 16, 2022 Supervising Physician Co-Signing Physician Notes Resident Physician Supervision Note: I independently interviewed and examined the patient and verified the delarosa history and physical, reviewed labs and image studies and agree with resident findings and care plan. Subjective Patient was seen bedside this morning. She complains continue epigastric pain that radiates to her left quadrant and into her back. She states that Tylenol has not worked in the past. Review of Systems Review of Systems: All systems reviewed & are unremarkable except as noted in Subjective Physical Exam Constitutional: well developed and + in distress Eyes: PERRL, conjunctivae normal, anicteric sclerae ENMT: external ear and nose normal, oropharynx normal Respiratory: normal respiratory effort, lungs clear to auscultation Cardiovascular: RRR, no murmur, no edema Gastrointestinal (Abdomen): Inspection/Auscultation: abdomen normal to inspection and normal bowel sounds Percussion/Palpation: + abdomen tender (Epigastric, left upper quadrant, left lower quadrant) and abdomen soft; no hepatomegaly and no abdominal mass Musculoskeletal: no cyanosis or clubbing, extremities motor strength 5/5 Skin: no rashes, warm and dry Psychiatric: A+Ox3, euthymic affect Results & Data Results & Data Vital Signs (Past 12 Hours) Vital Signs Temp Pulse Pulse Resp BP BP Pulse Ox 07/16/22 02:16 07/16/22 02:16 36.5 C 79 15 166/91 H 99 07/16/22 02:04 36.5 C 79 15 166/91 H 99 07/16/22 01:01 86 20 138/72 95 07/16/22 00:30 86 18 149/93 H 95 07/15/22 21:20 90 20 145/75 H 94 07/15/22 20:03 98 07/15/22 19:25 115 H 20 132/72 96 O2 Del Method 07/16/22 02:16 Room Air 07/16/22 02:16 Room Air 07/16/22 02:04 Room Air 07/16/22 01:01 Room Air 07/16/22 00:30 Room Air 07/15/22 21:20 Room Air 07/15/22 20:03 Room Air 07/15/22 19:25 Room Air (3) Nausea & vomiting Vomiting type: unspecified Qualified Code(s): R11.2 - Nausea with vomiting, unspecified
[2022-07-16 06:24] LABS: Magnesium 1.7 mg/dl (1.7-2.4)
[2022-07-16] MEDS: ONDANSETRON INJ 2 MG/ML 2 ML VIAL IV PRN ×3 (06:25→19:59)
--- NOTE | 2022-07-16 08:31 | Electrocardiogram Report ---
Test Reason : Blood Pressure : / mmHG Vent. Rate : 101 BPM Atrial Rate : 101 BPM P-R Int : 178 ms QRS Dur : 090 ms QT Int : 360 ms P-R-T Axes : 072 082 045 degrees QTc Int : 466 ms Poor data quality, interpretation may be adversely affected Sinus tachycardia Left atrial enlargement Abnormal ECG When compared with ECG of 21-JUN-2022 01:41, Premature ventricular complexes are no longer Present T wave amplitude has decreased in Anterolateral leads Confirmed by Neel Suárez ([id number]) on 07/16/2022 8:30:56 AM Referred By: REFERRED SELF Confirmed By:Neel Suárez
[2022-07-16] MEDS: FAMOTIDINE 20 MG in SYRINGE 3 ML IV SCH ×2 (08:53→21:54)
[2022-07-16] MEDS: GABAPENTIN 800 MG TAB PO SCH ×2 (08:54→21:53)
[2022-07-16] MEDS: SERTRALINE HCL 50 MG TABLET PO SCH (08:54)
[2022-07-16] MEDS: PANTOprazole 40 MG in SYRINGE 0 ML IV SCH ×2 (08:54→21:53)
[2022-07-16] MEDS: busPIRone 5 MG TAB PO SCH ×2 (08:54→21:53)
[2022-07-16] MEDS: buPROPion XL 150 MG TABCR PO SCH (08:54)
[2022-07-16] MEDS ORDERED: oxyCODONE/APAP 7.5/325MG TAB PO PRN (12:03)
--- NOTE | 2022-07-16 15:40 | Gastrointestinal Consultation ---
Date of Consultation July 16, 2022 Assessment & Plan (1) Intractable abdominal pain: She has intractable abdominal pain that has been difficult to diagnose. The only positive findings have been CT evidence of pancreatitis and episodes with elevation of her transaminases. Also her bile duct seems to be slowly getting bigger. It is possible she has microlithiasis of the bile duct causing this intermittent issues or perhaps even sphincter of Oddi dysfunction. I will start the evaluation with MRCP and then discuss with therapeutic endoscopy about EUS or ERCP History of Present Illness Reason for Consultation: abdominal pain Attending Physician: Mariel Sanchez MD History of Present Illness 52 year old female who has had longstanding problems with abdominal pain but a lot of issues over the past couple of years. This has led to a cholecystectomy with a little postop problem that had to be addressed surgicially. She gets pain in her upper abdomen that can go to the left, right or down lower. This is associated with nausea, vomiting and diarrhea. One one episode she had CT evidence of pancreatitis. She has had multiple EGD's and colonoscopies without diagnosis. She does have elevated LFT's with transaminases up last October, normal in June and minimally elevated today. Multiple CT's have been negative as well as CTA (except for the CT that showed pancreatitis). She is frustrated. She does not feel stress plays a role. Allergies Allergy/AdvReac Type Severity Reaction Status Date / Time rizatriptan Allergy Severe Difficulty Verified 07/15/22 20:02 Breathing benzoin Allergy Intermediate USED TO Verified 07/15/22 20:02 PUT UNDER STERI STRIPS TO KEEP THEM ON -- BLISTERS tramadol AdvReac Intermediate N/V Verified 07/15/22 20:02 Home Medications Medication Instructions Recorded Confirmed Type clonazepam 1 mg tablet 1 mg PO BID PRN Anxiety 02/10/18 07/15/22 History acetaminophen 500 mg tablet 1,000 mg PO DIRECTED PRN Pain 09/19/19 07/15/22 History (Tylenol Extra Strength) bupropion HCl 150 mg 24 hr tablet, 150 mg PO QAM 09/19/19 07/15/22 History extended release (Wellbutrin XL) gabapentin 400 mg capsule 800 mg PO BID 06/26/20 07/15/22 History sertraline 50 mg tablet 75 mg PO QAM 06/26/20 07/15/22 History buspirone 10 mg tablet 20 mg PO BID 06/21/22 07/15/22 History oxycodone-acetaminophen 7.5 mg-325 1 tab PO QID PRN Pain 06/21/22 07/15/22 History mg tablet amlodipine 5 mg tablet (Norvasc) 5 mg PO QAM 30 days #30 tabs 06/26/22 07/15/22 Rx omeprazole 20 mg capsule,delayed 20 mg PO BID 07/15/22 07/15/22 History release Patient History Medical History Cervical disc herniation (02/18/14) Cervical radiculopathy GOOD ROM PER PT Chronic low back pain Chronic neck pain Disc degeneration, lumbar Dysuria Electrolyte abnormality NEL (generalized anxiety disorder) Hematuria Hx of migraines Hydronephrosis, right Intractable abdominal pain Lab test negative for COVID-19 virus MDD (major depressive disorder) Migraine [place] Osteoarthritis Peripheral neuropathy Urge and stress incontinence Urinary retention UTI (urinary tract infection) Surgical History H/O abdominal surgery (10/27/21) Laparoscopic Washout S/P Laparoscopic Cholecystectomy(Not Applicable) - Sukumar Wood DO H/O hand surgery repair of hand injury due to a dog bite H/O wrist surgery History of breast biopsy History of cystoscopy History of esophagogastroduodenoscopy (EGD) History of mandibular surgery History of robot-assisted laparoscopic hysterectomy Hx of abdominal surgery (10/25/21) p Diagnostic Laparoscopy with Pelvic Washings(Not Applicable) - Sukumar Wood, DO s Laparoscopic Cholecystectomy - Sukumar Wood DO Hx of cystoscopy (~08/15/20) TURBT with stent placement [facility] Hx of lumpectomy LEFT (BENIGN) S/P cervical spinal fusion C4-C5 & C5-C6. TOTAL OF 3 FUSIONS ([employer]). LIMITED RANGE TO LEFT. HAS BEEN INTUBATED SINCE. Cervical Arthroplasty C4-C5 02/18/14: MAC #3, ETT #7.0, Grade 1 View, Smooth intubation on 1st attempt S/P hardware removal CERVICAL S/P ureteral stent placement Family History Father Cardiac disorder Malignant neoplasm of colon Prostate cancer Colorectal cancer Aunt Breast cancer Denies family history of Ovarian cancer Social History Smoking Status: Never smoker Second Hand Exposure: No; Do You Dip or Chew Tobacco: No; Hx Alcohol Use: No Hx Substance Use: No Preferred Language: Czech Communication Ability: Effective Visual Impairment: No Limitations Automobile Drivers Required: No Beliefs That Will Affect Care: None marital status: Current Living Situation: Spouse and Family Current Living Situation Comment: at home How many Children do You have: 2 Feels Safe at Home: Yes Safety Concerns: Feels Safe At This Time Assistive Devices: Contacts and Glasses Review of Systems Review of Systems: All systems reviewed & are unremarkable except as noted in HPI & below Physical Exam Constitutional: WD/WN, vitals as above no acute distress Eyes: PERRL, conjunctivae normal, anicteric sclerae ENMT: external ear and nose normal, oropharynx normal Neck: trachea midline, no thyromegaly Respiratory: normal respiratory effort, lungs clear to auscultation Cardiovascular: RRR, no murmur, no edema Gastrointestinal (Abdomen): Inspection/Auscultation: abdomen normal to inspection and normal bowel sounds Percussion/Palpation: + abdomen tender (midepigstritum) Musculoskeletal: Extremities: no cyanosis and no clubbing Skin: no rashes, warm and dry Neurologic: PERRL, EOMI, accommodation nl, no face palsy, no dysarthria Psychiatric: Orientation: alert and oriented x 3 Results & Data Vital Signs (Past 12 Hours) Vital Signs Temp Pulse Pulse Resp BP Pulse Ox O2 Del Method 07/16/22 14:49 36.8 C 86 16 149/80 H 96 Room Air 07/16/22 08:40 36.5 C 104 H 18 166/72 H 97 Room Air Laboratory Results 07/16/22 07/16/22 07/15/22 Range/Units 05:50 05:50 20:55 WBC (4.8-10.8) K/ul RBC (4.20-5.40) M/uL Hgb (12.0-16.0) g/dl Hct (37.0-47.0) % MCV (80.0-100.0) fL MCH (25.0-34.0) pg MCHC (32.0-36.0) g/dL RDW Std Deviation (36.4-46.3) fL RDW Coeff of Angelique (11.5-14.5) % Plt Count (130-400) K/uL MPV (9.4-12.4) fL Immature Gran % (Auto) % Neut % (Auto) % Lymph % (Auto) % [place] % (Auto) % Eos % (Auto) % Baso % (Auto) % Neut # (Auto) (1.40-6.50) K/uL Lymph # (Auto) (1.2-3.4) K/uL [place] # (Auto) (0.11-0.59) K/uL Eos # (Auto) (0-0.50) K/uL Baso # (Auto) (0-0.2) K/uL Immature Gran # (Auto) (0.01-0.20) K/uL VBG pH 7.37 (7.36-7.41) VBG pCO2 42 (38-50) mmHg VBG pO2 71 mmHg VBG HCO3 24 mmol/L VBG O2 Saturation 95.6 % VBG Base Excess -1.1 mEq/L Sodium (136-145) mmol/L Potassium (3.5-5.1) mmol/L Chloride (98-107) mmol/L Carbon Dioxide (21-32) mmol/L Anion Gap (3-11) BUN (6-23) mg/dl Creatinine (0.6-1.2) mg/dl Est Cr Clr Drug Dosing ml/min Est GFR ( Amer) ml/min Est GFR (Non-Af Amer) ml/min BUN/Creatinine Ratio (10-20) Glucose (70-99(Fasting)) mg/dl Calcium (8.6-10.3) mg/dl Magnesium 1.7 (1.7-2.4) mg/dl Total Bilirubin (0.2-1.0) mg/dl AST (13-39) U/L ALT (7-52) U/L Alkaline Phosphatase (34-104) U/L Troponin I High Sens (0-14) pg/ml Total Protein (6.0-8.3) gm/dl Albumin (3.4-5.0) gm/dl Globulin (2.5-4.0) gm/dl Albumin/Globulin Ratio (0.9-2) Triglycerides (0-150) mg/dl Cholesterol (0-200) mg/dl LDL Cholesterol, Calc mg/dl VLDL Cholesterol, Calc (0-30) mg/dl HDL Cholesterol mg/dl Cholesterol/HDL Ratio (0-5) Lipase 22 (11-82) U/L HCG, Qual (Negative) Urine Color Yellow Urine Appearance Clear (Clear) Urine pH 6.5 (4.5-7.5) Ur Specific [place] 1.006 (1.000-1.030) Urine Protein Negative (Negative) Urine Glucose (UA) Negative (Negative) Urine Ketones Negative (Negative) Urine Blood Negative (Negative) Urine Nitrite Negative (Negative) Urine Bilirubin Negative (Negative) Urine Urobilinogen Negative (Negative) Ur Leukocyte Esterase Negative (Negative) SARS-CoV-2, RNA, NAAT (NEGATIVE) 07/15/22 07/15/22 07/15/22 Range/Units 20:00 19:52 19:52 WBC (4.8-10.8) K/ul RBC (4.20-5.40) M/uL Hgb (12.0-16.0) g/dl Hct (37.0-47.0) % MCV (80.0-100.0) fL MCH (25.0-34.0) pg MCHC (32.0-36.0) g/dL RDW Std Deviation (36.4-46.3) fL RDW Coeff of Angelique (11.5-14.5) % Plt Count (130-400) K/uL MPV (9.4-12.4) fL Immature Gran % (Auto) % Neut % (Auto) % Lymph % (Auto) % [place] % (Auto) % Eos % (Auto) % Baso % (Auto) % Neut # (Auto) (1.40-6.50) K/uL Lymph # (Auto) (1.2-3.4) K/uL [place] # (Auto) (0.11-0.59) K/uL Eos # (Auto) (0-0.50) K/uL Baso # (Auto) (0-0.2) K/uL Immature Gran # (Auto) (0.01-0.20) K/uL VBG pH (7.36-7.41) VBG pCO2 (38-50) mmHg VBG pO2 mmHg VBG HCO3 mmol/L VBG O2 Saturation % VBG Base Excess mEq/L Sodium 141 (136-145) mmol/L Potassium 3.5 (3.5-5.1) mmol/L Chloride 105 (98-107) mmol/L Carbon Dioxide 21 (21-32) mmol/L Anion Gap 15 H (3-11) BUN 20 (6-23) mg/dl Creatinine 0.73 (0.6-1.2) mg/dl Est Cr Clr Drug Dosing 93.2 ml/min Est GFR ( Amer) 109.7 ml/min Est GFR (Non-Af Amer) 94.7 ml/min BUN/Creatinine Ratio 27.4 H (10-20) Glucose 73 (70-99(Fasting)) mg/dl Calcium 9.4 (8.6-10.3) mg/dl Magnesium (1.7-2.4) mg/dl Total Bilirubin 1.1 H (0.2-1.0) mg/dl AST 34 (13-39) U/L ALT 25 (7-52) U/L Alkaline Phosphatase 129 H (34-104) U/L Troponin I High Sens 6.5 (0-14) pg/ml Total Protein 7.1 (6.0-8.3) gm/dl Albumin 4.7 (3.4-5.0) gm/dl Globulin 2.4 L (2.5-4.0) gm/dl Albumin/Globulin Ratio 2.0 (0.9-2) Triglycerides 91 (0-150) mg/dl Cholesterol 151 (0-200) mg/dl LDL Cholesterol, Calc 19 mg/dl VLDL Cholesterol, Calc 18 (0-30) mg/dl HDL Cholesterol 114 mg/dl Cholesterol/HDL Ratio 1.3 (0-5) Lipase 46 (11-82) U/L HCG, Qual Negative (Negative) Urine Color Urine Appearance (Clear) Urine pH (4.5-7.5) Ur Specific [place] (1.000-1.030) Urine Protein (Negative) Urine Glucose (UA) (Negative) Urine Ketones (Negative) Urine Blood (Negative) Urine Nitrite (Negative) Urine Bilirubin (Negative) Urine Urobilinogen (Negative) Ur Leukocyte Esterase (Negative) SARS-CoV-2, RNA, NAAT NEGATIVE (NEGATIVE) 07/15/22 Range/Units 19:52 WBC 7.40 (4.8-10.8) K/ul RBC 4.32 (4.20-5.40) M/uL Hgb 14.3 (12.0-16.0) g/dl Hct 39.4 (37.0-47.0) % MCV 91.2 (80.0-100.0) fL MCH 33.1 (25.0-34.0) pg MCHC 36.3 H (32.0-36.0) g/dL RDW Std Deviation 43.3 (36.4-46.3) fL RDW Coeff of Angelique 12.9 (11.5-14.5) % Plt Count 410 H (130-400) K/uL MPV 9.7 (9.4-12.4) fL Immature Gran % (Auto) 0.3 % Neut % (Auto) 45.9 % Lymph % (Auto) 40.8 % [place] % (Auto) 5.5 % Eos % (Auto) 5.3 % Baso % (Auto) 2.2 % Neut # (Auto) 3.40 (1.40-6.50) K/uL Lymph # (Auto) 3.02 (1.2-3.4) K/uL [place] # (Auto) 0.41 (0.11-0.59) K/uL Eos # (Auto) 0.39 (0-0.50) K/uL Baso # (Auto) 0.16 (0-0.2) K/uL Immature Gran # (Auto) 0.02 (0.01-0.20) K/uL VBG pH (7.36-7.41) VBG pCO2 (38-50) mmHg VBG pO2 mmHg VBG HCO3 mmol/L VBG O2 Saturation % VBG Base Excess mEq/L Sodium (136-145) mmol/L Potassium (3.5-5.1) mmol/L Chloride (98-107) mmol/L Carbon Dioxide (21-32) mmol/L Anion Gap (3-11) BUN (6-23) mg/dl Creatinine (0.6-1.2) mg/dl Est Cr Clr Drug Dosing ml/min Est GFR ( Amer) ml/min Est GFR (Non-Af Amer) ml/min BUN/Creatinine Ratio (10-20) Glucose (70-99(Fasting)) mg/dl Calcium (8.6-10.3) mg/dl Magnesium (1.7-2.4) mg/dl Total Bilirubin (0.2-1.0) mg/dl AST (13-39) U/L ALT (7-52) U/L Alkaline Phosphatase (34-104) U/L Troponin I High Sens (0-14) pg/ml Total Protein (6.0-8.3) gm/dl Albumin (3.4-5.0) gm/dl Globulin (2.5-4.0) gm/dl Albumin/Globulin Ratio (0.9-2) Triglycerides (0-150) mg/dl Cholesterol (0-200) mg/dl LDL Cholesterol, Calc mg/dl VLDL Cholesterol, Calc (0-30) mg/dl HDL Cholesterol mg/dl Cholesterol/HDL Ratio (0-5) Lipase (11-82) U/L HCG, Qual (Negative) Urine Color Urine Appearance (Clear) Urine pH (4.5-7.5) Ur Specific [place] (1.000-1.030) Urine Protein (Negative) Urine Glucose (UA) (Negative) Urine Ketones (Negative) Urine Blood (Negative) Urine Nitrite (Negative) Urine Bilirubin (Negative) Urine Urobilinogen (Negative) Ur Leukocyte Esterase (Negative) SARS-CoV-2, RNA, NAAT (NEGATIVE) Diagnostic Findings Abdomen/Pelvis CT 07/15/22 19:30 Exam(s): CT ABDOMEN + PELVIS With Contrast IV Amt: 83ML OPTIRAY 350 EXAM: CT Abdomen and Pelvis With Intravenous Contrast CLINICAL HISTORY: Reason for exam: mid abd pain, hx pancreatitis. TECHNIQUE: Axial computed tomography images of the abdomen and pelvis with intravenous contrast. CTDI is 6.88 mGy and DLP is 327.73 mGy-cm. Automated exposure control was utilized for the study. A dose lowering technique was utilized adhering to the principles of ALARA. CONTRAST: Patient received 83ML OPTIRAY 350 of IV contrast COMPARISON: 06/21/22 FINDINGS: Lung bases are clear. Gallbladder surgically absent. There is mild intra-hepatic biliary dilatation and mild enlargement of the common bile duct, similar to prior, likely reservoir effect. Liver, spleen, and adrenal glands are unremarkable. Pancreas appears normal by CT, without evidence of acute pancreatitis. Kidneys enhance symmetrically. There is no hydronephrosis or perinephric stranding. Aorta is normal in caliber. There is no adenopathy. There is no free air or significant free fluid. Appendix is normal. There is no bowel obstruction or inflammation. Uterus is surgically absent. Urinary bladder is unremarkable. Regional skeleton appears intact. IMPRESSION: No CT evidence of acute or inflammatory process. Electronically signed by: Maikol Guevara M.D. 07/15/22 22:35 PM Abdomen/Pelvis CTA 07/16/22 01:19 Exam(s): CTA ABDOMEN + PELVIS With Contrast IV Amt: 114 ML OPTIRAY 320 EXAM: CT Angiography Abdomen and Pelvis With Intravenous Contrast CLINICAL HISTORY: Reason for exam: r/o ischemic bowel. TECHNIQUE: Axial computed tomographic angiography images of the abdomen and pelvis with intravenous contrast. CTDI is 7.14 mGy and DLP is 339.8 mGy-cm. Automated exposure control was utilized for the study. A dose lowering technique was utilized adhering to the principles of ALARA. MIP reconstructed images were created and reviewed. CONTRAST: Patient received 114 ML OPTIRAY 320 of IV contrast COMPARISON: CT abdomen and pelvis 07/15/22 FINDINGS: Lung bases are clear. Gallbladder is surgically absent. Enlarged common bile duct is likely due to reservoir effect. Liver is enlarged. Spleen, pancreas, adrenal glands, and kidneys are unremarkable. There is no aortic aneurysm or dissection. Celiac artery and its branches are adequately patent. SMA is adequately patent. Single bilateral renal arteries are adequately patent. LAMBERTO is adequately patent. Bilateral iliac arteries are adequately patent. There is no adenopathy, free fluid, or free air. Appendix is normal. There is no bowel obstruction or inflammation. There are no CT findings of ischemic bowel. There is no bowel wall pneumatosis. There is no portal venous gas. Uterus is surgically absent. Urinary bladder is unremarkable. Regional skeleton appears intact. IMPRESSION: 1. No acute or inflammatory process. 2. Aorta and its branch vessels appear adequately patent. 3. No CT evidence of ischemic bowel. 4. Enlarged common bile duct is similar to prior exam and most likely due to reservoir effect. However, there is laboratory evidence of biliary obstruction, consider MRCP. Electronically signed by: Maikol Guevara M.D. 07/16/22 02:08 AM
--- NOTE | 2022-07-16 19:06 | Magnetic Resonance Report ---
MR MRCP HISTORY: 52 years-old Female abdominal pain with elevated LFT's acute upper abdominal pain with elev ated LFTs COMPARISON: CT abdomen and pelvis of same day, CT abdomen and pelvis 07/15/2022, MRCP 2021 TECHNIQUE: MRCP without the use of IV contrast was obtained according to institutional protocol. FINDINGS: Ophthalmology Technician localizer images demonstrate no gross extra abdominal abnormality. Study is mildly motion degra ded. Cholecystectomy. Common bile duct is dilated measuring up to 10 mm. No biliary stricture or chol edocholithiasis. The pancreatic duct is normal in caliber. No large pancreatic IPMN's or pancreatic d ivisum identified. Solid abdominal organs appear unremarkable. No free fluid or bowel dilation. No hy dronephrosis. Duplicated IVC. No abdominal aortic aneurysm. IMPRESSION: 1. Cholecystectomy with common bile duct dilation redemonstrated, likely secondary to reservoir effec t. 2. No choledocholithiasis identified. ACT 112: Negative or not required by law. The above report was generated using voice recognition software. It may contain grammatical, syntax o r spelling errors. Electronically signed by: Juwan Soto M.D. 07/16/2022 7:03 PM
[2022-07-16] MEDS: oxyCODONE/APAP 7.5/325MG TAB PO PRN (19:37)
[2022-07-17] MEDS ORDERED: KETOROLAC 30 MG/ML VIAL IV ONE (00:19)
[2022-07-17] MEDS: oxyCODONE/APAP 7.5/325MG TAB PO PRN ×2 (02:29→08:42)
[2022-07-17] MEDS: ACETAMINOPHEN 1,000 MG/100 ML VIAL IV PRN ×2 (03:27→13:12)
--- NOTE | 2022-07-17 06:44 | Hospitalist Progress Note ---
Date of Service July 17, 2022 Assessment & Plan (1) Intractable abdominal pain: Plan: 52 yo F with PMHx of cholecystectomy, SBO, pancreatitis episodes x3, NEL, MDD, cervical radiculopathy s/p cervical fusion presenting with abdominal pain. 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 Has had 4 episodes like this since discharge from [facility] 06/26 for acute pancreatitis. No leukocytosis. Lipase normal. Afebrile. -Labs show a elevated total bilirubin of 1.1 and an alk phos of 129. Slight elevation of alk phos to 165. Slight bump in AST on 07/17. We will continue to trend -CT A/P without acute or inflammatory process. CTA with a large common bile duct and MRCP is considered due to laboratory evidence of bili obstruction. -GI consulted -- MRCP did not show any choledocholithiasis, did have common bile duct dilation likely secondary to reservoir effect. -- Believe all signs are pointing to ampulla/bile duct as main cause of abdominal pain. -- Recommend outpatient EUS. -Pain control with increased dose of percocet - 10/325 (from 7.5/325) and IV Dilaudid 0.25 mg every 6 hours as needed for breakthrough pain. -IV zofran for nausea -IV pepcid and PPI scheduled -Continue Maintenance IVF due to poor PO intake. Depression and Anxiety -cont. wellbutrin, buspirone, sertraline, clonazepam Cervical radiculopathy -cont. gabapentin Chronic neck pain -Follows with pain management, currently using Percocet 7.5 mg as needed. DVT ppx: SCDs FEN/GI: NPO, IVF @ 100ml/hr Code Status: Full Dispo: Med Surg (2) MDD (major depressive disorder): (3) Nausea & vomiting: (4) History of pancreatitis: (5) NEL (generalized anxiety disorder): Admission and Anticipated Discharge Date Admission Date: July 16, 2022 Supervising Physician Co-Signing Physician Notes Resident Physician Supervision Note: I independently interviewed and examined the patient and verified the delarosa history and physical, reviewed labs and image studies and agree with resident findings and care plan. Subjective Patient was seen bedside this morning. She states that she is frustrated with her pain management at this time. States that her home Percocet only last about 3 and half hours and she needs something for the breakthrough pain. States that she has used Dilaudid in the past which has helped with the breakthrough pain. Continues to have epigastric pain that radiates to the left side of her body that she reports is a 10 out of 10. Review of Systems Review of Systems: All systems reviewed & are unremarkable except as noted in Subjective Physical Exam Constitutional: WD/WN, vitals as above no acute distress Eyes: PERRL, conjunctivae normal, anicteric sclerae ENMT: external ear and nose normal, oropharynx normal Neck: trachea midline, no thyromegaly Respiratory: normal respiratory effort, lungs clear to auscultation Cardiovascular: RRR, no murmur, no edema Gastrointestinal (Abdomen): Inspection/Auscultation: abdomen normal to inspection and normal bowel sounds Percussion/Palpation: + abdomen tender (Epigastric) Musculoskeletal: Extremities: no cyanosis and no clubbing Skin: no rashes, warm and dry Neurologic: PERRL, EOMI, accommodation nl, no face palsy, no dysarthria Psychiatric: Orientation: alert and oriented x 3 Results & Data Results & Data Vital Signs (Past 12 Hours) Vital Signs Temp Pulse Resp BP Pulse Ox O2 Del Method 07/16/22 23:38 36.7 C 93 H 14 152/83 H 98 Room Air (3) Nausea & vomiting Vomiting type: unspecified Qualified Code(s): R11.2 - Nausea with vomiting, unspecified
[2022-07-17 06:46] LABS: Albumin Level 4.3 gm/dl (3.4-5.0); BUN Creatinine Ratio 8.7 (10-20); Bilirubin,Total 0.9 mg/dl (0.2-1.0); Calcium 8.6 mg/dl (8.6-10.3); Creatinine Clr Calc Pharmacy 97.1 ml/min; Est GFR (Non-African American) 100.1 ml/min; Globulin 2.2 gm/dl (2.5-4.0); Potassium 3.2 mmol/L (3.5-5.1); Total Protein 6.5 gm/dl (6.0-8.3)
[2022-07-17 07:09] LABS: Basophils # (auto) 0.09 K/uL (0-0.2); Basophils % (auto) 1.5 %; Eosinophils # (auto) 0.49 K/uL (0-0.50); Eosinophils % (auto) 8.1 %; Hematocrit (blood only) 36.7 % (37.0-47.0); Hemoglobin 12.7 g/dl (12.0-16.0); Immature Granulocytes # (auto) 0.01 K/uL (0.01-0.20); Immature Granulocytes % (auto) 0.2 %; Lymphocytes # (auto) 1.59 K/uL (1.2-3.4); Lymphocytes % (auto) 26.2 %; Mean Corpuscular Hemoglobin 33.2 pg (25.0-34.0); Mean Corpuscular Hgb Conc 34.6 g/dL (32.0-36.0); Mean Corpuscular Volume 96.1 fL (80.0-100.0); Mean Platelet Volume 9.9 fL (9.4-12.4); Monocytes # (auto) 0.47 K/uL (0.11-0.59); Monocytes % (auto) 7.7 %; Neutrophils # (auto) 3.42 K/uL (1.40-6.50); Neutrophils % (auto) 56.3 %; Platelet Count 289 K/uL (130-400); RDW Coefficient of Variation 12.7 % (11.5-14.5); RDW Standard Deviation 44.5 fL (36.4-46.3); Red Blood Count 3.82 M/uL (4.20-5.40); White Blood Count 6.07 K/ul (4.8-10.8)
[2022-07-17] MEDS: SODIUM CHLORIDE 0.9% 1000ML 1,000 ML IV SCH ×2 (07:38→18:19)
[2022-07-17] MEDS: FAMOTIDINE 20 MG in SYRINGE 3 ML IV SCH ×2 (07:39→20:45)
[2022-07-17] MEDS: busPIRone 5 MG TAB PO SCH ×2 (07:39→20:43)
[2022-07-17] MEDS: PANTOprazole 40 MG in SYRINGE 0 ML IV SCH ×2 (07:39→20:45)
[2022-07-17] MEDS: buPROPion XL 150 MG TABCR PO SCH (07:39)
[2022-07-17] MEDS: SERTRALINE HCL 50 MG TABLET PO SCH (07:40)
[2022-07-17] MEDS: GABAPENTIN 800 MG TAB PO SCH ×2 (07:40→20:45)
[2022-07-17] MEDS: ONDANSETRON INJ 2 MG/ML 2 ML VIAL IV PRN ×4 (07:44→20:46)
[2022-07-17] MEDS ORDERED: HYDROmorphone INJ 0.5 MG/0.5 ML SYR IV STA (10:17)
--- NOTE | 2022-07-17 13:00 | Gastroenterology Progress Note ---
Date of Service July 17, 2022 Assessment & Plan (1) Intractable abdominal pain: Plan: I believe all signs are pointing to ampulla/bile duct as cause for pain. LFT's have bumped a little today. Dr. Vaughn has indicated outpatient EUS. Mrs. Gordon would like it earlier if possible. I will discuss with therapeutic endoscopy team to see if can be moved up but I told her I can't force someone to move procedure up Admission and Anticipated Discharge Date Admission Date: July 16, 2022 Subjective Eating but holding upper abdomen while eating. Still hurting and unhappy with pain management. MRCP shows duct is now 10 mm compared to "top of normal range" last year. Physical Exam Physical Exam: She looks uncomfortable Results & Data Vital Signs (Past 12 Hours) Vital Signs Temp Pulse Resp BP Pulse Ox O2 Del Method 07/17/22 07:39 36.6 C 103 H 16 162/93 H 98 Room Air
[2022-07-17] MEDS: oxyCODONE/ACETAMINOPHEN 10-325 TAB PO PRN ×2 (14:33→20:46)
[2022-07-17] MEDS: HYDROmorphone INJ 0.5 MG/0.5 ML SYR IV PRN ×2 (16:35→23:40)
[2022-07-17] MEDS ORDERED: GLYCERIN ADULT 12 SUPP/BOX SUPP PR PRN (17:05)
[2022-07-17] MEDS ORDERED: POLYETHYLENE (MIRALAX) 17 GM PACK PO PRN (17:08)
[2022-07-17] MEDS: clonazePAM 1 MG TAB PO PRN (22:15)
[2022-07-18] MEDS: oxyCODONE/ACETAMINOPHEN 10-325 TAB PO PRN ×4 (05:13→21:03)
[2022-07-18] MEDS: SODIUM CHLORIDE 0.9% 1000ML 1,000 ML IV SCH ×2 (05:14→15:16)
--- NOTE | 2022-07-18 06:43 | Hospitalist Progress Note ---
Date of Service July 18, 2022 Assessment & Plan (1) Intractable abdominal pain: Plan: 52 yo F with PMHx of cholecystectomy, SBO, pancreatitis episodes x3, NEL, MDD, cervical radiculopathy s/p cervical fusion presenting with abdominal pain. 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 Has had 4 episodes like this since discharge from [facility] 06/26 for acute pancreatitis. No leukocytosis. Lipase normal. Afebrile. -Labs show a elevated total bilirubin of 1.1 and an alk phos of 129. Slight elevation of alk phos to 165. Slight bump in AST on 07/17. We will continue to trend -CT A/P without acute or inflammatory process. CTA with a large common bile duct and MRCP is considered due to laboratory evidence of bili obstruction. -GI consulted -- MRCP did not show any choledocholithiasis, did have common bile duct dilation likely secondary to reservoir effect. -- Believe all signs are pointing to ampulla/bile duct as main cause of abdominal pain. -- EGD and EUS will be performed on 07/19 with possible ERCP. We will make n.p.o. after midnight. -Pain control with increased dose of percocet - 10/325 (from 7.5/325) and IV Dilaudid 0.25 mg every 6 hours as needed for breakthrough pain. -IV zofran for nausea -IV pepcid and PPI scheduled -Continue Maintenance IVF due to poor PO intake. Constipation -Has not had a bowel movement since Saturday. Given a suppository glycerin which did not help. -We will order suppository Dulcolax as needed MiraLAX daily. Depression and Anxiety -cont. wellbutrin, buspirone, sertraline, clonazepam Cervical radiculopathy -cont. gabapentin Chronic neck pain -Follows with pain management, currently using Percocet 7.5 mg as needed. Hypertension -We will restart home amlodipine 5 mg DVT ppx: SCDs, lovenox 40mg FEN/GI: NPO after midnight, IVF @ 100ml/hr Code Status: Full Dispo: Med Surg (2) MDD (major depressive disorder): (3) Nausea & vomiting: (4) History of pancreatitis: (5) NEL (generalized anxiety disorder): Admission and Anticipated Discharge Date Admission Date: July 16, 2022 Supervising Physician Co-Signing Physician Notes Resident Physician Supervision Note: I independently interviewed and examined the patient and verified the delarosa history and physical, reviewed labs and image studies and agree with resident findings and care plan. Subjective Patient was seen bedside this morning. States that she has been able to eat a little bit more, though still has decreased p.o. intake and has only 2 bites of pork truck last night. She also states that she is feeling better with her pain control at this time. She does continue to complain of epigastric pain that radiates to the left upper quadrant. As well as not having a bowel movement since Saturday. She took a suppository yesterday which did not work and will be needing to take MiraLAX this morning. Review of Systems Review of Systems: All systems reviewed & are unremarkable except as noted in Subjective Physical Exam Constitutional: WD/WN, vitals as above no acute distress Eyes: PERRL, conjunctivae normal, anicteric sclerae ENMT: external ear and nose normal, oropharynx normal Neck: trachea midline, no thyromegaly Respiratory: normal respiratory effort, lungs clear to auscultation Cardiovascular: RRR, no murmur, no edema Gastrointestinal (Abdomen): Inspection/Auscultation: abdomen normal to inspection and normal bowel sounds Percussion/Palpation: + abdomen tender (Epigastric) Musculoskeletal: Extremities: no cyanosis and no clubbing Skin: no rashes, warm and dry Neurologic: PERRL, EOMI, accommodation nl, no face palsy, no dysarthria Psychiatric: Orientation: alert and oriented x 3 Results & Data Results & Data Vital Signs (Past 12 Hours) Vital Signs Temp Pulse Resp BP Pulse Ox O2 Del Method 07/17/22 22:03 36.9 C 83 16 168/88 H 98 Room Air Resident Activity Tracking Resident Involvement: Resident Care Provided Care Provided: Adult Hospital Medicine (3) Nausea & vomiting Vomiting type: unspecified Qualified Code(s): R11.2 - Nausea with vomiting, unspecified
[2022-07-18] MEDS: HYDROmorphone INJ 0.5 MG/0.5 ML SYR IV PRN ×2 (07:38→18:10)
[2022-07-18] MEDS: busPIRone 5 MG TAB PO SCH ×2 (07:40→20:58)
[2022-07-18] MEDS: GABAPENTIN 800 MG TAB PO SCH ×2 (07:40→20:58)
[2022-07-18] MEDS: PANTOprazole 40 MG in SYRINGE 0 ML IV SCH ×2 (07:41→20:58)
[2022-07-18] MEDS: FAMOTIDINE 20 MG in SYRINGE 3 ML IV SCH ×2 (07:41→21:04)
[2022-07-18] MEDS: buPROPion XL 150 MG TABCR PO SCH (07:41)
[2022-07-18] MEDS: SERTRALINE HCL 50 MG TABLET PO SCH (07:41)
[2022-07-18 08:45] LABS: Basophils # (auto) 0.07 K/uL (0-0.2); Basophils % (auto) 0.6 %; Eosinophils # (auto) 0.61 K/uL (0-0.50); Eosinophils % (auto) 5.4 %; Hematocrit (blood only) 36.5 % (37.0-47.0); Hemoglobin 12.9 g/dl (12.0-16.0); Immature Granulocytes # (auto) 0.03 K/uL (0.01-0.20); Immature Granulocytes % (auto) 0.3 %; Lymphocytes # (auto) 1.26 K/uL (1.2-3.4); Lymphocytes % (auto) 11.2 %; Mean Corpuscular Hemoglobin 33.5 pg (25.0-34.0); Mean Corpuscular Hgb Conc 35.3 g/dL (32.0-36.0); Mean Corpuscular Volume 94.8 fL (80.0-100.0); Monocytes # (auto) 0.51 K/uL (0.11-0.59); Monocytes % (auto) 4.5 %; Neutrophils # (auto) 8.81 K/uL (1.40-6.50); Platelet Count 263 K/uL (130-400); RDW Coefficient of Variation 13.1 % (11.5-14.5); RDW Standard Deviation 45.3 fL (36.4-46.3); Red Blood Count 3.85 M/uL (4.20-5.40); White Blood Count 11.29 K/ul (4.8-10.8)
[2022-07-18 09:02] LABS: Albumin Globulin Ratio 1.8 (0.9-2); Albumin Level 4.1 gm/dl (3.4-5.0); BUN Creatinine Ratio 7.3 (10-20); Bilirubin,Total 0.6 mg/dl (0.2-1.0); Calcium 8.8 mg/dl (8.6-10.3); Creatinine Clr Calc Pharmacy 121.8 ml/min; Est GFR (Non-African American) 107.8 ml/min; Globulin 2.3 gm/dl (2.5-4.0); Potassium 3.5 mmol/L (3.5-5.1); Total Protein 6.4 gm/dl (6.0-8.3)
[2022-07-18] MEDS: ENOXAPARIN INJ 40 MG/0.4 ML SYR SQ SCH (09:03)
--- NOTE | 2022-07-18 09:41 | Gastroenterology Progress Note ---
Date of Service July 18, 2022 Assessment & Plan (1) Intractable abdominal pain: (2) Elevated LFTs: Plan Pt is a 52 yo female w hx of SBO, pancreatitis, s/p cholecystectomy seen for n/v, LLQ abd pain symptoms. LFTs w mild elevation , normal lipase. DDx: PUD, gastritis, Sphincter of Oddi dysfunction. - NPO after midnight - Arrange EUS/ERCP on 07/[address] Vaughn - Symptomatic management otherwise Admission and Anticipated Discharge Date Admission Date: July 16, 2022 Supervising Physician Co-Signing Physician Notes I saw and evaluated the patient. We were asked by [place] [facility] to evaluate this patient for endoscopic ultrasound and potential ERCP. Patient has a history of abdominal discomfort and has had numerous admissions over the past few years. I did take the liberty of reviewing the patient's chart, it appears she underwent a cholecystectomy over the summer for intermittent discomfort, the cholecystectomy was notable for no evidence of gallstone disease. The patient describes her pain as episodic typically radiating from her chest to her left abdomen. Of note she has had a mild elevation of her liver enzymes on 2 occasions in the past. Physical examination No obvious distress, no scleral icterus Tenderness of the abdomen worse on left hand side Impression: Patient with a history of abdominal his clinical character of the pain is not consistent with a benign etiology. Of note she does have mild dilation of the common bile duct noted on the patient's CT scan think it would be reasonable to proceed with upper endoscopy and endoscopic ultrasound as requested. We did discuss the potential role for ERCP if a gallstone is found, we also discussed the potential role of ERCP for sphincter of Oddi dysfunction. I did discussed the increased risk of biliary intervention in this type of patient, > 20 to 25% in many studies. Plan EGD EUS Possible ERCP if gallstone disease is found. Subjective Pt is c/o epigastric pain radiating to LUQ. Denies n/v. LFTs: Tbili 0.6, AST 44, ALT 45, Alk phose 194. Lipase normal CTA/CT: IMPRESSION: 1. No acute or inflammatory process. 2. Aorta and its branch vessels appear adequately patent. 3. No CT evidence of ischemic bowel. 4. Enlarged common bile duct is similar to prior exam and most likely due to reservoir effect. However, there is laboratory evidence of biliary obstruction, consider MRCP. MRCP: 1. Cholecystectomy with common bile duct dilation redemonstrated, likely secondary to reservoir effect. 2. No choledocholithiasis identified. Review of Systems Review of Systems: All systems reviewed & are unremarkable except as noted in HPI & below Physical Exam Constitutional: WD/WN, vitals as above well groomed, cooperative and comfortable Eyes: PERRL, conjunctivae normal, anicteric sclerae ENMT: external ear and nose normal, oropharynx normal Respiratory: normal respiratory effort, lungs clear to auscultation Cardiovascular: RRR, no murmur, no edema Gastrointestinal (Abdomen): Generalized TTP, soft, hypoactive BS Skin: no rashes, warm and dry no jaundice Psychiatric: A+Ox3, euthymic affect Lymphatic: no lymphedema Results & Data Vital Signs (Past 12 Hours) Vital Signs Temp Pulse Pulse Resp BP Pulse Ox O2 Del Method 07/18/22 08:30 Room Air 07/18/22 07:37 36.8 C 106 H 16 165/95 H 98 Room Air 07/17/22 22:03 36.9 C 83 16 168/88 H 98 Room Air
[2022-07-18] MEDS ORDERED: bisacodyL 10 MG SUPP PR STA (10:43)
[2022-07-18] MEDS ORDERED: amLODIPine BESYLATE 5 MG TAB PO ONE (11:47)
--- NOTE | 2022-07-18 12:44 | Gastroenterology Progress Note ---
Date of Service July 18, 2022 Assessment & Plan (1) Intractable abdominal pain: Plan: I answered all of her questions. I told her we don't know what, if any, of her pain addressing her bile duct will manage considering the atypical nature of her pain. I think proceeding with EUS first and then deciding whether or not to proceed with sphincterotomy is the right way to approach this. I also reminded her that I told her she was at high risk for postop issues if he were to just arbitrarily do sphincterotomy without getting EUS results first. She seemed to understand and to realize that she may still have some residual issues after this is complete. Admission and Anticipated Discharge Date Admission Date: July 16, 2022 Subjective Eating lunch, says she is still in pain. Dr. Vaughn has been able to get OR time to do procedure tomorrow. She has a lot of questions Physical Exam Physical Exam: She looks a little uncomfortable Results & Data Vital Signs (Past 12 Hours) Vital Signs Temp Pulse Resp BP Pulse Ox O2 Del Method 07/18/22 08:30 Room Air 07/18/22 07:37 36.8 C 106 H 16 165/95 H 98 Room Air
[2022-07-18] MEDS: POLYETHYLENE (MIRALAX) 17 GM PACK PO SCH ×3 (16:02→23:03)
[2022-07-19] MEDS: HYDROmorphone INJ 0.5 MG/0.5 ML SYR IV PRN ×4 (00:18→22:21)
[2022-07-19] MEDS: SODIUM CHLORIDE 0.9% 1000ML 1,000 ML IV SCH ×2 (00:21→09:40)
[2022-07-19] MEDS: POLYETHYLENE (MIRALAX) 17 GM PACK PO SCH ×6 (01:04→22:22)
[2022-07-19] MEDS: oxyCODONE/ACETAMINOPHEN 10-325 TAB PO PRN ×3 (01:19→19:03)
--- NOTE | 2022-07-19 06:49 | Hospitalist Progress Note ---
Date of Service July 19, 2022 Assessment & Plan (1) Intractable abdominal pain: Plan: 52 yo F with PMHx of cholecystectomy, SBO, pancreatitis episodes x3, NEL, MDD, cervical radiculopathy s/p cervical fusion presenting with abdominal pain. 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 Has had 4 episodes like this since discharge from [facility] 06/26 for acute pancreatitis. No leukocytosis. Lipase normal. Afebrile. -Labs show a elevated total bilirubin of 1.1 and an alk phos of 129. Slight elevation of alk phos to 165. Slight bump in AST on 07/17. We will continue to trend -CT A/P without acute or inflammatory process. CTA with a large common bile duct and MRCP is considered due to laboratory evidence of bili obstruction. -GI consulted -- MRCP did not show any choledocholithiasis, did have common bile duct dilation likely secondary to reservoir effect. -- Believe all signs are pointing to ampulla/bile duct as main cause of abdominal pain. -- EGD and EUS will be performed on 07/19 with possible ERCP will be done today. -Pain control with increased dose of percocet - 10/325 (from 7.5/325) and IV Dilaudid 0.25 mg every 6 hours as needed for breakthrough pain. -IV zofran for nausea -IV pepcid and PPI scheduled -Continue Maintenance IVF due to poor PO intake. Hypokalemia -Potassium of 3.3, repleted. Constipation -Has not had a bowel movement since Saturday. Given a suppository glycerin which did not help. -Given a suppository Dulcolax on 07/18 and started as needed MiraLAX daily. -We will continue to monitor and reassess after procedure today. Hypoproteinemia -drop in protein level. likely from Poor PO intake -follow closely post ERCP for need of parenteral nutrition. Depression and Anxiety -cont. wellbutrin, buspirone, sertraline, clonazepam Cervical radiculopathy -cont. gabapentin Chronic neck pain -Follows with pain management, currently using Percocet 7.5 mg as needed. Hypertension -Continue on home amlodipine 5 mg DVT ppx: SCDs, lovenox 40mg FEN/GI: NPO after midnight, IVF @ 100ml/hr Code Status: Full Dispo: Med Surg (2) MDD (major depressive disorder): (3) Nausea & vomiting: (4) History of pancreatitis: (5) NEL (generalized anxiety disorder): Admission and Anticipated Discharge Date Admission Date: July 16, 2022 Supervising Physician Co-Signing Physician Notes Resident Physician Supervision Note: I independently interviewed and examined the patient and verified the delarosa history and physical, reviewed labs and image studies and agree with resident findings and care plan. Subjective Patient seen bedside this morning. No issues or complaints at this time. Currently waiting to have EUS with possible ERCP. Review of Systems Review of Systems: All systems reviewed & are unremarkable except as noted in Subjective Physical Exam Constitutional: WD/WN, vitals as above ENMT: external ear and nose normal, oropharynx normal Neck: trachea midline, no thyromegaly Respiratory: normal respiratory effort, lungs clear to auscultation Cardiovascular: RRR, no murmur, no edema Gastrointestinal (Abdomen): Inspection/Auscultation: abdomen normal to inspection and normal bowel sounds Percussion/Palpation: + abdomen tender (Epigastric) Musculoskeletal: Extremities: no cyanosis and no clubbing Skin: no rashes, warm and dry Neurologic: PERRL, EOMI, accommodation nl, no face palsy, no dysarthria Psychiatric: Orientation: alert and oriented x 3 Results & Data Results & Data Vital Signs (Past 12 Hours) Vital Signs Temp Pulse Resp BP Pulse Ox O2 Del Method 07/18/22 23:06 36.8 C 77 18 138/82 98 Room Air 07/18/22 21:00 Room Air Resident Activity Tracking Resident Involvement: Resident Care Provided Care Provided: Adult Hospital Medicine (3) Nausea & vomiting Vomiting type: unspecified Qualified Code(s): R11.2 - Nausea with vomiting, unspecified
[2022-07-19] MEDS: SERTRALINE HCL 50 MG TABLET PO SCH (08:01)
[2022-07-19] MEDS: GABAPENTIN 800 MG TAB PO SCH ×2 (08:01→20:50)
[2022-07-19] MEDS: ENOXAPARIN INJ 40 MG/0.4 ML SYR SQ SCH (08:02)
[2022-07-19] MEDS: amLODIPine BESYLATE 5 MG TAB PO SCH (08:02)
[2022-07-19] MEDS: PANTOprazole 40 MG in SYRINGE 0 ML IV SCH ×2 (08:02→20:49)
[2022-07-19] MEDS: buPROPion XL 150 MG TABCR PO SCH (08:02)
[2022-07-19] MEDS: busPIRone 5 MG TAB PO SCH ×2 (08:02→20:48)
[2022-07-19] MEDS: FAMOTIDINE 20 MG in SYRINGE 3 ML IV SCH ×2 (08:10→20:56)
[2022-07-19 08:22] LABS: Basophils # (auto) 0.04 K/uL (0-0.2); Eosinophils # (auto) 0.44 K/uL (0-0.50); Eosinophils % (auto) 10.9 %; Hematocrit (blood only) 32.5 % (37.0-47.0); Lymphocytes # (auto) 1.76 K/uL (1.2-3.4); Lymphocytes % (auto) 43.6 %; Mean Corpuscular Hemoglobin 32.9 pg (25.0-34.0); Mean Corpuscular Hgb Conc 33.8 g/dL (32.0-36.0); Mean Corpuscular Volume 97.3 fL (80.0-100.0); Mean Platelet Volume 9.6 fL (9.4-12.4); Monocytes # (auto) 0.25 K/uL (0.11-0.59); Monocytes % (auto) 6.2 %; Neutrophils # (auto) 1.55 K/uL (1.40-6.50); Neutrophils % (auto) 38.3 %; Platelet Count 205 K/uL (130-400); RDW Coefficient of Variation 13.2 % (11.5-14.5); RDW Standard Deviation 47.2 fL (36.4-46.3); Red Blood Count 3.34 M/uL (4.20-5.40); White Blood Count 4.04 K/ul (4.8-10.8)
[2022-07-19 08:32] LABS: Albumin Globulin Ratio 1.8 (0.9-2); Albumin Level 3.6 gm/dl (3.4-5.0); BUN Creatinine Ratio 7.8 (10-20); Bilirubin,Total 0.4 mg/dl (0.2-1.0); Calcium 8.3 mg/dl (8.6-10.3); Creatinine Clr Calc Pharmacy 131.4 ml/min; Est GFR (African American) 128.1 ml/min; Est GFR (Non-African American) 110.6 ml/min; Potassium 3.3 mmol/L (3.5-5.1); Total Protein 5.6 gm/dl (6.0-8.3)
[2022-07-19] MEDS ORDERED: ACETAMINOPHEN 1,000 MG/100 ML VIAL IV STA (09:26)
[2022-07-19] MEDS ORDERED: ePHEDrine sulfate 50 MG/ML AMP IV PRN (09:26)
[2022-07-19] MEDS ORDERED: ATROPINE SULFATE 0.1 MG/ML 10ML SYR IV PRN (09:26)
[2022-07-19] MEDS ORDERED: ONDANSETRON INJ 2 MG/ML 2 ML VIAL IV PRN (09:26)
--- NOTE | 2022-07-19 09:26 | Anesthesiology Consultation ---
Date of Service July 19, 2022 Assessment & Plan ASA ASA3 Proposed Anesthesia Anesthesia Type: General Risk / Benefits Reviewed With: PT / POA / Parent / Guardian, Accepts Plan and Informed Consent Obtained History Surgery Operation Date: 07/19/22 11:50 Proposed Procedures p Endoscopic Retrograde Cholangiopancreatogram - Neel Vaughn DO s Endoscopic Ultrasonography Upper - Neel Vaughn DO Height/Weight Height: 5 ft 9 in Weight: 64.5 kg Allergies Allergy/AdvReac Type Severity Reaction Status Date / Time rizatriptan Allergy Severe Difficulty Verified 07/15/22 20:02 Breathing benzoin Allergy Intermediate USED TO Verified 07/15/22 20:02 PUT UNDER STERI STRIPS TO KEEP THEM ON -- BLISTERS tramadol AdvReac Intermediate N/V Verified 07/15/22 20:02 Medications Home Medications Medication Instructions Recorded Confirmed Last Taken clonazepam 1 mg tablet 1 mg PO BID PRN Anxiety 02/10/18 07/15/22 09/07/20 08:00 acetaminophen 500 mg tablet 1,000 mg PO DIRECTED PRN Pain 09/19/19 07/15/22 09/07/20 23:00 (Tylenol Extra Strength) bupropion HCl 150 mg 24 hr tablet, 150 mg PO QAM 09/19/19 07/15/22 06/20/22 extended release (Wellbutrin XL) gabapentin 400 mg capsule 800 mg PO BID 06/26/20 07/15/22 06/20/22 sertraline 50 mg tablet 75 mg PO QAM 06/26/20 07/15/22 06/20/22 buspirone 10 mg tablet 20 mg PO BID 06/21/22 07/15/22 06/20/22 oxycodone-acetaminophen 7.5 mg-325 1 tab PO QID PRN Pain 06/21/22 07/15/22 Unknown mg tablet amlodipine 5 mg tablet (Norvasc) 5 mg PO QAM 30 days #30 tabs 06/26/22 07/15/22 Unknown omeprazole 20 mg capsule,delayed 20 mg PO BID 07/15/22 07/15/22 Unknown release Active Medications Generic Name Dose Route Start Last Admin Trade Name Freq PRN Reason Stop Dose Admin Amlodipine Besylate 5 mg 07/19/22 09:00 07/19/22 08:02 Amlodipine Besylate 5 Mg Tab PO 08/18/22 08:59 5 mg QAM MARYLIN Administration Bupropion HCl 150 mg 07/16/22 09:00 07/19/22 08:02 Bupropion Xl 150 Mg Tabcr PO 08/15/22 08:59 150 mg QAM MARYLIN Administration Buspirone HCl 20 mg 07/16/22 09:00 07/19/22 08:02 Buspirone 5 Mg Tab PO 08/15/22 08:59 20 mg BID MARYLIN Administration Clonazepam 1 mg 07/16/22 02:16 07/17/22 22:15 Clonazepam 1 Mg Tab PO 08/15/22 02:15 1 mg BID PRN Administration Anxiety Diphenhydramine HCl 50 mg 07/16/22 03:28 07/16/22 06:49 Diphenhydramine 50 Mg/Ml Vial IV 08/15/22 03:27 25 mg Q6H PRN Administration Pain Enoxaparin Sodium 40 mg 07/18/22 09:00 07/19/22 08:02 Enoxaparin Inj 40 Mg/0.4 Ml Syr SQ 08/17/22 08:59 40 mg QAM MARYLIN Administration Gabapentin 800 mg 07/16/22 09:00 07/19/22 08:01 Gabapentin 800 Mg Tab PO 08/15/22 08:59 800 mg BID MARYLIN Administration Hydromorphone HCl 0.25 mg 07/17/22 10:17 07/19/22 06:56 Hydromorphone Inj 0.5 Mg/0.5 Ml Syr IV 07/31/22 10:16 0.25 mg Q6H PRN Administration Pain Sodium Chloride 1,000 mls @ 100 mls/hr 07/16/22 01:15 07/19/22 00:21 Nss 1000ml IV 08/15/22 01:14 100 mls/hr .Q10H MARYLIN Administration Pantoprazole Sodium 40 mg/ 10 mls @ 5 mls/min 07/16/22 09:00 07/19/22 08:02 Syringe IV 08/15/22 08:59 5 mls/min BID MARYLIN Administration Famotidine 20 mg/ Syringe 5 mls @ 2.5 mls/min 07/16/22 09:00 07/19/22 08:10 IV 08/15/22 08:59 2.5 mls/min Q12H MARYLIN Administration Acetaminophen 1,000 mg in 100 mls @ 400 mls/hr 07/16/22 12:16 07/17/22 14:19 Ofirmev IV 07/19/22 12:15 Infused Q8H PRN Infusion Pain Ondansetron HCl 4 mg 07/16/22 02:16 07/17/22 20:46 Ondansetron Inj 2 Mg/Ml 2 Ml Vial IV 08/15/22 02:15 4 mg Q4H PRN Administration Nausea Oxycodone/Acetaminophen 1 tab 07/17/22 14:09 07/19/22 08:10 Oxycodone/Acetaminophen 10-325 Tab PO 07/31/22 14:08 1 tab QID PRN Administration Pain Polyethylene Glycol 17 gm 07/18/22 15:00 07/19/22 06:12 Polyethylene (Miralax) 17 Gm Pack PO 08/17/22 14:59 Not Given Q4H MARYLIN Sertraline HCl 75 mg 07/16/22 09:00 07/19/22 08:01 Sertraline Hcl 50 Mg Tablet PO 08/15/22 08:59 75 mg QAM MARYLIN Administration Past Medical History Medical History Cervical disc herniation (02/18/14) Cervical radiculopathy GOOD ROM PER PT Chronic low back pain Chronic neck pain Disc degeneration, lumbar Dysuria Electrolyte abnormality NEL (generalized anxiety disorder) Hematuria Hx of migraines Hydronephrosis, right Intractable abdominal pain Lab test negative for COVID-19 virus MDD (major depressive disorder) Migraine [place] Osteoarthritis Peripheral neuropathy Urge and stress incontinence Urinary retention UTI (urinary tract infection) Exercise / Class Metabolic Activity II 4-5 Yardwork/Stairs/Walk up hill Past Family History Family History Father Cardiac disorder Malignant neoplasm of colon Prostate cancer Colorectal cancer Aunt Breast cancer Denies family history of Ovarian cancer Past Surgical History Surgical History H/O abdominal surgery (10/27/21) Laparoscopic Washout S/P Laparoscopic Cholecystectomy(Not Applicable) - Sukumar Wood, H/O hand surgery repair of hand injury due to a dog bite H/O wrist surgery History of breast biopsy History of cystoscopy History of esophagogastroduodenoscopy (EGD) History of mandibular surgery History of robot-assisted laparoscopic hysterectomy Hx of abdominal surgery (10/25/21) p Diagnostic Laparoscopy with Pelvic Washings(Not Applicable) - Sukumar Wood, DO s Laparoscopic Cholecystectomy - Sukumar Wood, Hx of cystoscopy (~08/15/20) TURBT with stent placement [facility] Hx of lumpectomy LEFT (BENIGN) S/P cervical spinal fusion C4-C5 & C5-C6. TOTAL OF 3 FUSIONS (MDdatacor). LIMITED RANGE TO LEFT. HAS BEEN INTUBATED SINCE. Cervical Arthroplasty C4-C5 02/18/14: MAC #3, ETT #7.0, Grade 1 View, Smooth intubation on 1st attempt S/P hardware removal CERVICAL S/P ureteral stent placement Past Anesthesia History No Hx of Anesthesia Complications and No Family Hx of Anesthesia Complications History of PONV No Hx of PONV and No Hx of Motion Sickness Social History Smoking Status: Never smoker Do You Dip or Chew Tobacco: No Hx Alcohol Use: No Alcohol type: beer, wine and hard liquor alcohol intake frequency: holidays/special occasions only Hx Substance Use: No substance use type: does not use Physical Exam Vital Signs Last Vital Signs Temp 36.9 C 07/19/22 07:53 Pulse 80 07/19/22 07:53 Resp 16 07/19/22 07:53 BP 149/79 H 07/19/22 07:53 Pulse Ox 98 07/19/22 07:53 O2 Del Method Room Air 07/19/22 07:53 Constitutional no acute distress ENMT Mouth: no dentition abnormality Thyromental Distance: > or= 3.5 Finger Breadths Mallampati Class: II Neck normal visual inspection Respiratory normal respiratory effort; no respiratory distress Auscultation: lungs clear to auscultation bilaterally Cardiovascular Rate/Rhythm: regular rate and regular rhythm Heart Sounds: no murmur Musculoskeletal Spine: normal cervical ROM Psychiatric Orientation: alert and oriented x 3 Testing Laboratory Results 07/19/22 07:55 07/19/22 07:55 Urine Color Yellow 07/15/22 20:55 Urine Appearance Clear (Clear) 07/15/22 20:55 Urine pH 6.5 (4.5-7.5) 07/15/22 20:55 Ur Specific [place] 1.006 (1.000-1.030) 07/15/22 20:55 Urine Protein Negative (Negative) 07/15/22 20:55 Urine Glucose (UA) Negative (Negative) 07/15/22 20:55 Urine Ketones Negative (Negative) 07/15/22 20:55 Urine Nitrite Negative (Negative) 07/15/22 20:55 Ur Leukocyte Esterase Negative (Negative) 07/15/22 20:55 Day of Procedure Evaluation. Date of Surgery July 19, 2022 Height/Weight Height: 5 ft 9 in Weight: 64.5 kg Vital Signs Last Vital Signs Temp 36.9 C 07/19/22 07:53 Pulse 80 07/19/22 07:53 Resp 16 07/19/22 07:53 BP 149/79 H 07/19/22 07:53 Pulse Ox 98 07/19/22 07:53 O2 Del Method Room Air 07/19/22 07:53 Allergies Allergy/AdvReac Type Severity Reaction Status Date / Time rizatriptan Allergy Severe Difficulty Verified 07/15/22 20:02 Breathing benzoin Allergy Intermediate USED TO Verified 07/15/22 20:02 PUT UNDER STERI STRIPS TO KEEP THEM ON -- BLISTERS tramadol AdvReac Intermediate N/V Verified 07/15/22 20:02 Medications Home Medications Medication Instructions Recorded Confirmed Last Taken clonazepam 1 mg tablet 1 mg PO BID PRN Anxiety 02/10/18 07/15/22 09/07/20 08:00 acetaminophen 500 mg tablet 1,000 mg PO DIRECTED PRN Pain 09/19/19 07/15/22 09/07/20 23:00 (Tylenol Extra Strength) bupropion HCl 150 mg 24 hr tablet, 150 mg PO QAM 09/19/19 07/15/22 06/20/22 extended release (Wellbutrin XL) gabapentin 400 mg capsule 800 mg PO BID 06/26/20 07/15/22 06/20/22 sertraline 50 mg tablet 75 mg PO QAM 06/26/20 07/15/22 06/20/22 buspirone 10 mg tablet 20 mg PO BID 06/21/22 07/15/22 06/20/22 oxycodone-acetaminophen 7.5 mg-325 1 tab PO QID PRN Pain 06/21/22 07/15/22 Unknown mg tablet amlodipine 5 mg tablet (Norvasc) 5 mg PO QAM 30 days #30 tabs 06/26/22 07/15/22 Unknown omeprazole 20 mg capsule,delayed 20 mg PO BID 07/15/22 07/15/22 Unknown release Active Medications Generic Name Dose Route Start Last Admin Trade Name Freq PRN Reason Stop Dose Admin Amlodipine Besylate 5 mg 07/19/22 09:00 07/19/22 08:02 Amlodipine Besylate 5 Mg Tab PO 08/18/22 08:59 5 mg QAM MARYLIN Administration Bupropion HCl 150 mg 07/16/22 09:00 07/19/22 08:02 Bupropion Xl 150 Mg Tabcr PO 08/15/22 08:59 150 mg QAM MARYLIN Administration Buspirone HCl 20 mg 07/16/22 09:00 07/19/22 08:02 Buspirone 5 Mg Tab PO 08/15/22 08:59 20 mg BID MARYLIN Administration Clonazepam 1 mg 07/16/22 02:16 07/17/22 22:15 Clonazepam 1 Mg Tab PO 08/15/22 02:15 1 mg BID PRN Administration Anxiety Diphenhydramine HCl 50 mg 07/16/22 03:28 07/16/22 06:49 Diphenhydramine 50 Mg/Ml Vial IV 08/15/22 03:27 25 mg Q6H PRN Administration Pain Enoxaparin Sodium 40 mg 07/18/22 09:00 07/19/22 08:02 Enoxaparin Inj 40 Mg/0.4 Ml Syr SQ 08/17/22 08:59 40 mg QAM MARYLIN Administration Gabapentin 800 mg 07/16/22 09:00 07/19/22 08:01 Gabapentin 800 Mg Tab PO 08/15/22 08:59 800 mg BID MARYLIN Administration Hydromorphone HCl 0.25 mg 07/17/22 10:17 07/19/22 06:56 Hydromorphone Inj 0.5 Mg/0.5 Ml Syr IV 07/31/22 10:16 0.25 mg Q6H PRN Administration Pain Sodium Chloride 1,000 mls @ 100 mls/hr 07/16/22 01:15 07/19/22 00:21 Nss 1000ml IV 08/15/22 01:14 100 mls/hr .Q10H MARYLIN Administration Pantoprazole Sodium 40 mg/ 10 mls @ 5 mls/min 07/16/22 09:00 07/19/22 08:02 Syringe IV 08/15/22 08:59 5 mls/min BID MARYLIN Administration Famotidine 20 mg/ Syringe 5 mls @ 2.5 mls/min 07/16/22 09:00 07/19/22 08:10 IV 08/15/22 08:59 2.5 mls/min Q12H MARYLIN Administration Acetaminophen 1,000 mg in 100 mls @ 400 mls/hr 07/16/22 12:16 07/17/22 14:19 Ofirmev IV 07/19/22 12:15 Infused Q8H PRN Infusion Pain Ondansetron HCl 4 mg 07/16/22 02:16 07/17/22 20:46 Ondansetron Inj 2 Mg/Ml 2 Ml Vial IV 08/15/22 02:15 4 mg Q4H PRN Administration Nausea Oxycodone/Acetaminophen 1 tab 07/17/22 14:09 07/19/22 08:10 Oxycodone/Acetaminophen 10-325 Tab PO 07/31/22 14:08 1 tab QID PRN Administration Pain Polyethylene Glycol 17 gm 07/18/22 15:00 07/19/22 06:12 Polyethylene (Miralax) 17 Gm Pack PO 08/17/22 14:59 Not Given Q4H MARYLIN Sertraline HCl 75 mg 07/16/22 09:00 07/19/22 08:01 Sertraline Hcl 50 Mg Tablet PO 08/15/22 08:59 75 mg QAM MARYLIN Administration Past Anesthesia History No Hx of Anesthesia Complications and No Family Hx of Anesthesia Complications History of PONV No Hx of PONV and No Hx of Motion Sickness Home Medications Home Medications Medication Instructions Recorded Confirmed Last Taken clonazepam 1 mg tablet 1 mg PO BID PRN Anxiety 02/10/18 07/15/22 09/07/20 08:00 acetaminophen 500 mg tablet 1,000 mg PO DIRECTED PRN Pain 09/19/19 07/15/22 09/07/20 23:00 (Tylenol Extra Strength) bupropion HCl 150 mg 24 hr tablet, 150 mg PO QAM 06/10/0207/15/22 06/20/22 extended release (Wellbutrin XL) gabapentin 400 mg capsule 800 mg PO BID 06/26/20 07/15/22 06/20/22 sertraline 50 mg tablet 75 mg PO QAM 06/26/20 07/15/22 06/20/22 buspirone 10 mg tablet 20 mg PO BID 06/21/22 07/15/22 06/20/22 oxycodone-acetaminophen 7.5 mg-325 1 tab PO QID PRN Pain 06/21/22 07/15/22 Unknown mg tablet amlodipine 5 mg tablet (Norvasc) 5 mg PO QAM 30 days #30 tabs 06/26/22 07/15/22 Unknown omeprazole 20 mg capsule,delayed 20 mg PO BID 07/15/22 07/15/22 Unknown release Active Medications Generic Name Dose Route Start Last Admin Trade Name Freq PRN Reason Stop Dose Admin Amlodipine Besylate 5 mg 07/19/22 09:00 07/19/22 08:02 Amlodipine Besylate 5 Mg Tab PO 08/18/22 08:59 5 mg QAM MARYLIN Administration Bupropion HCl 150 mg 07/16/22 09:00 07/19/22 08:02 Bupropion Xl 150 Mg Tabcr PO 08/15/22 08:59 150 mg QAM MARYLIN Administration Buspirone HCl 20 mg 07/16/22 09:00 07/19/22 08:02 Buspirone 5 Mg Tab PO 08/15/22 08:59 20 mg BID MARYLIN Administration Clonazepam 1 mg 07/16/22 02:16 07/17/22 22:15 Clonazepam 1 Mg Tab PO 08/15/22 02:15 1 mg BID PRN Administration Anxiety Diphenhydramine HCl 50 mg 07/16/22 03:28 07/16/22 06:49 Diphenhydramine 50 Mg/Ml Vial IV 08/15/22 03:27 25 mg Q6H PRN Administration Pain Enoxaparin Sodium 40 mg 07/18/22 09:00 07/19/22 08:02 Enoxaparin Inj 40 Mg/0.4 Ml Syr SQ 08/17/22 08:59 40 mg QAM MARYLIN Administration Gabapentin 800 mg 07/16/22 09:00 07/19/22 08:01 Gabapentin 800 Mg Tab PO 08/15/22 08:59 800 mg BID MARYLIN Administration Hydromorphone HCl 0.25 mg 07/17/22 10:17 07/19/22 06:56 Hydromorphone Inj 0.5 Mg/0.5 Ml Syr IV 07/31/22 10:16 0.25 mg Q6H PRN Administration Pain Sodium Chloride 1,000 mls @ 100 mls/hr 07/16/22 01:15 07/19/22 00:21 Nss 1000ml IV 08/15/22 01:14 100 mls/hr .Q10H MARYLIN Administration Pantoprazole Sodium 40 mg/ 10 mls @ 5 mls/min 07/16/22 09:00 07/19/22 08:02 Syringe IV 08/15/22 08:59 5 mls/min BID MARYLIN Administration Famotidine 20 mg/ Syringe 5 mls @ 2.5 mls/min 07/16/22 09:00 07/19/22 08:10 IV 08/15/22 08:59 2.5 mls/min Q12H MARYLIN Administration Acetaminophen 1,000 mg in 100 mls @ 400 mls/hr 07/16/22 12:16 07/17/22 14:19 Ofirmev IV 07/19/22 12:15 Infused Q8H PRN Infusion Pain Ondansetron HCl 4 mg 07/16/22 02:16 07/17/22 20:46 Ondansetron Inj 2 Mg/Ml 2 Ml Vial IV 08/15/22 02:15 4 mg Q4H PRN Administration Nausea Oxycodone/Acetaminophen 1 tab 07/17/22 14:09 07/19/22 08:10 Oxycodone/Acetaminophen 10-325 Tab PO 07/31/22 14:08 1 tab QID PRN Administration Pain Polyethylene Glycol 17 gm 07/18/22 15:00 07/19/22 06:12 Polyethylene (Miralax) 17 Gm Pack PO 08/17/22 14:59 Not Given Q4H MARYLIN Sertraline HCl 75 mg 07/16/22 09:00 07/19/22 08:01 Sertraline Hcl 50 Mg Tablet PO 08/15/22 08:59 75 mg QAM MARYLIN Administration Exercise / Class Metabolic Activity Metabolic Activity: II 4-5 Yardwork/Stairs/Walk up hill Physical Exam Constitutional: no acute distress Mouth: no dentition abnormality Thyromental Distance: > or= 3.5 Finger Breadths Mallampati Class: II Neck: + visual inspection normal Respiratory: + respiratory effort normal and + clear to auscultation bilaterally; no respiratory distress Cardiovascular: + regular rate and + regular rhythm; no murmur Musculoskeletal: no limited cervical ROM Psychiatric: + alert and + oriented x 3 ASA ASA3 Proposed Anesthesia Proposed Anesthesia: General Risk / Benefits Reviewed With: PT / POA / Parent / Guardian, Accepts Plan and Informed Consent Obtained
[2022-07-19] MEDS ORDERED: POTASSIUM CHLORIDE 20 MEQ in SODIUM CHLORIDE 0.9% 1000ML 1,000 ML IV SCH (09:34)
[2022-07-19] MEDS: NSS + 20MEQ KCL 20 MEQ/1,000 ML BAG IV SCH ×2 (11:17→22:22)
[2022-07-19] MEDS ORDERED: MIDAZOLAM HCL 1 MG/ML 2ML VIAL ONE (12:48)
[2022-07-19] MEDS ORDERED: fentaNYL citrate PF 100 MCG/2 ML VIAL ONE (12:48)
[2022-07-19] MEDS ORDERED: INDOMETHACIN 50 MG SUPP PR ONE ×2 (13:14→13:19)
--- NOTE | 2022-07-19 13:17 | History & Physical Bridge Note ---
Date of Service July 19, 2022 History & Physical Bridge Note I have examined the patient, reviewed the History & Physical and in the interval since the performance of the History & Physical I have noted the following changes of clinical significance: no changes noted. 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 She has intermittent discomfort, this has been associated with elevation of liver enzymes on several occasions and status postcholecystectomy last summer. The patient's pain is typically in the mid epigastric region, we did discuss the role of upper endoscopy and endoscopic ultrasound for further evaluation. 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 I discussed the potential risk of complications to include the increased risk of post ERCP pancreatitis given the clinical indication (over 20%).
[2022-07-19] MEDS ORDERED: MoRPHine SULFATE 2 MG/ML CARP IV STA (13:25)
[2022-07-19] MEDS ORDERED: MoRPHine SULFATE 2 MG/ML CARP ONE (13:30)
[2022-07-19] MEDS ORDERED: SUCCINYLCHOLINE CHLORIDE 20 MG/ML 10 ML VIAL IV ONE (14:03)
[2022-07-19] MEDS ORDERED: ONDANSETRON INJ 2 MG/ML 2 ML VIAL ONE (14:03)
[2022-07-19] MEDS ORDERED: DEXAMETHASONE SOD INJ 4 MG/ML VIAL ONE (14:03)
[2022-07-19] MEDS ORDERED: ROCURONIUM BROMIDE 10 MG/ML 5 ML VIAL IV ONE (14:03)
[2022-07-19] MEDS ORDERED: PROPOFOL IV EMULSION 10 MG/ML 20 ML VIAL IV ONE (14:03)
[2022-07-19] MEDS ORDERED: LIDOCAINE 2% MPF LOCAL 5 ML VIAL ONE (14:03)
--- NOTE | 2022-07-19 14:26 | Post Operative Brief Note ---
Immediate Post Op Note v1 Date of Surgery July 19, 2022 Pre & Post Diagnosis Operation Date: 07/19/22 11:50 <No data on this case meets the specified criteria> I identified the patient and participated in the time-out.: Yes Procedure Operation Date: 07/19/22 11:50 Actual Procedures p Esophagogastroduodenoscopy - Neel Vaughn DO s Endoscopic Ultrasonography Upper - Neel Vaughn DO p Endoscopic Retrograde Cholangiopancreato - Neel Vaughn DO Surgeon Neel Vaughn DO Junior Graphic Designer none Estimated Blood Loss 0 Findings Consistent with Post-Op Diagnosis
--- NOTE | 2022-07-19 14:28 | Communication Note ---
Date of Service: July 19, 2022 The patient underwent upper endoscopy, endoscopic ultrasound and ERCP this afternoon. Upper endoscopy was notable for diffuse gastritis, biopsies were taken from the stomach in addition to the small intestine to screen for evidence of celiac disease. The gastritis could be related to bile reflux or perhaps one of the patient's medications. The endoscopic ultrasound was notable for modest dilation of the bile duct to 9 mm there was atrophy of the pancreas but no evidence of mass or cysts. 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 Recommendations Continue IV hydration overnight Avoid anticoagulation for 5 days Avoid nonsteroidals for 5 days please May have clear liquids Await pathology results Further recommendations per the [facility] gastroenterology service.
--- NOTE | 2022-07-19 14:29 | GI REPORT ---
Patient Name: Bonnie Gordon Procedure Date: 07/19/2022 1:49 PM Date of : 1970 Admit Type: Inpatient Age: 52 Gender: Female Attending MD: Neel Vaughn DO, Procedure: Upper GI endoscopy Providers: Neel Vaughn DO Referring MD: Alejandrina Ugarte MD Indications: Epigastric abdominal pain Medicines: General Anesthesia Complications: No immediate complications. Estimated blood loss: Minimal. Estimated Blood Loss: Estimated blood loss was minimal. Procedure: Pre-Anesthesia Assessment: - Prior to the procedure, a History and Physical was performed, and patient medications, allergies and sensitivities were reviewed. The patient's tolerance of previous anesthesia was reviewed. - The risks and benefits of the procedure and the sedation options and risks were discussed with the patient. All questions were answered and informed consent was obtained. - Patient identification and proposed procedure were verified prior to the procedure by the physician, the nurse and the strategic partnership representative. The procedure was verified in the procedure room. - Pre-procedure physical examination revealed no contraindications to sedation. - ASA Grade Assessment: III - A patient with severe systemic disease. - After reviewing the risks and benefits, the patient was deemed in satisfactory condition to undergo the procedure. - The anesthesia plan was to use general anesthesia. - Immediately prior to administration of medications, the patient was re-assessed for adequacy to receive sedatives. - The heart rate, respiratory rate, oxygen saturations, blood pressure, adequacy of pulmonary ventilation, and response to care were monitored throughout the procedure. - The physical status of the patient was re-assessed after the procedure. After obtaining informed consent, the endoscope was passed under direct vision. Throughout the procedure, the patient's blood pressure, pulse, and oxygen saturations were monitored continuously. The Endoscope was introduced through the mouth, and advanced to the third part of duodenum. The upper GI endoscopy was accomplished without difficulty. The patient tolerated the procedure well. Findings: The examined esophagus was normal. The Z-line was regular and was found 36 cm from the incisors. Diffuse moderate inflammation characterized by congestion (edema), erythema and granularity was found in the entire examined stomach. Biopsies were taken with a cold forceps for histology. The pathology specimen was placed into Bottle B. Estimated blood loss was minimal. The examined duodenum was normal. Biopsies were taken with a cold forceps for histology. The pathology specimen was placed into Bottle A. Estimated blood loss was minimal. Impression: - Normal esophagus. - Z-line regular, 36 cm from the incisors. - Gastritis, likely related to medicaitons. Biopsied. - Normal examined duodenum. Biopsied. Recommendation: - Perform an upper endoscopic ultrasound (UEUS) today. - Await pathology results. Neel Vaughn D.O. Neel Vaughn, 07/19/2022 2:28:53 PM This report has been signed electronically. Note Initiated On: 07/19/2022 1:49 PM Number of Addenda: 0 I attest to the content of the Intraoperative Record and orders documented therein, exceptions below {[id number]}
--- NOTE | 2022-07-19 14:30 | GI REPORT ---
Patient Name: Bonnie Gordon Procedure Date: 07/19/2022 1:48 PM Date of : 1970 Admit Type: Inpatient Age: 52 Gender: Female Attending MD: Neel Vaughn DO, Procedure: Upper EUS Providers: Neel Vaughn DO Referring MD: Referred Self Indications: Elevated liver enzymes, Suspected choledocholithiasis, Epigastric abdominal pain Medicines: General Anesthesia Complications: No immediate complications. Estimated blood loss: Minimal. Estimated Blood Loss: Estimated blood loss was minimal. Procedure: Pre-Anesthesia Assessment: - Prior to the procedure, a History and Physical was performed, and patient medications, allergies and sensitivities were reviewed. The patient's tolerance of previous anesthesia was reviewed. - The risks and benefits of the procedure and the sedation options and risks were discussed with the patient. All questions were answered and informed consent was obtained. - Patient identification and proposed procedure were verified prior to the procedure by the physician, the nurse and the material combiner. The procedure was verified in the procedure room. - Pre-procedure physical examination revealed no contraindications to sedation. - ASA Grade Assessment: III - A patient with severe systemic disease. - After reviewing the risks and benefits, the patient was deemed in satisfactory condition to undergo the procedure. - The anesthesia plan was to use general anesthesia. - Immediately prior to administration of medications, the patient was re-assessed for adequacy to receive sedatives. - The heart rate, respiratory rate, oxygen saturations, blood pressure, adequacy of pulmonary ventilation, and response to care were monitored throughout the procedure. - The physical status of the patient was re-assessed after the procedure. After obtaining informed consent, the endoscope was passed under direct vision. Throughout the procedure, the patient's blood pressure, pulse, and oxygen saturations were monitored continuously. The Scope was introduced through the mouth, and advanced to the second part of duodenum. The upper EUS was accomplished without difficulty. The patient tolerated the procedure well. Findings: ENDOSONOGRAPHIC FINDING: : There was no sign of significant endosonographic abnormality in the ampulla. No pathologic lymphadenopathy and no masses were identified. Evidence of a previous cholecystectomy was identified endosonographically. There was dilation in the common bile duct which measured up to 10 mm. There was no sign of significant endosonographic abnormality in the visualized portion of the liver. Homogeneous parenchyma and no focal pathology were identified. Pancreatic parenchymal abnormalities were noted in the entire pancreas. These consisted of atrophy and hyperechoic foci without shadowing. No lymphadenopathy seen. There was no sign of significant endosonographic abnormality in the left adrenal gland. No adrenal gland enlargement was identified. Impression: - There was no sign of significant pathology in the ampulla. - Evidence of a cholecystectomy. - There was dilation in the common bile duct which measured up to 10 mm. - There was no evidence of significant pathology in the visualized portion of the liver. - Pancreatic parenchymal abnormalities consisting of atrophy and hyperechoic foci without shadowing were noted in the entire pancreas. - Endosonographic images of the left adrenal gland were unremarkable. - No specimens collected. Recommendation: - Perform an ERCP today. Neel Vaughn D.O. Neel Vaughn, 07/19/2022 2:30:10 PM This report has been signed electronically. Note Initiated On: 07/19/2022 1:48 PM Number of Addenda: 0 I attest to the content of the Intraoperative Record and orders documented therein, exceptions below {[id number]}
--- NOTE | 2022-07-19 14:35 | GI REPORT ---
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 Estimated blood loss: Minimal. Estimated Blood Loss: Estimated blood loss was minimal. Procedure: Pre-Anesthesia Assessment: - Prior to the procedure, a History and Physical was performed, and patient medications, allergies and sensitivities were reviewed. The patient's tolerance of previous anesthesia was reviewed. - The risks and benefits of the procedure and the sedation options and risks were discussed with the patient. All questions were answered and informed consent was obtained. - Patient identification and proposed procedure were verified prior to the procedure by the physician, the nurse and the vulcanizing machine operator. The procedure was verified in the procedure room. - Pre-procedure physical examination revealed no contraindications to sedation. - ASA Grade Assessment: III - A patient with severe systemic disease. - After reviewing the risks and benefits, the patient was deemed in satisfactory condition to undergo the procedure. - The anesthesia plan was to use general anesthesia. - Immediately prior to administration of medications, the patient was re-assessed for adequacy to receive sedatives. - The heart rate, respiratory rate, oxygen saturations, blood pressure, adequacy of pulmonary ventilation, and response to care were monitored throughout the procedure. - The physical status of the patient was re-assessed after the procedure. After obtaining informed consent, the scope was passed under direct vision. Throughout the procedure, the patient's blood pressure, pulse, and oxygen saturations were monitored continuously. The Duodenoscope was introduced through the mouth, and advanced to the duodenum and used to inject contrast into the bile duct. The ERCP was accomplished without difficulty. The patient tolerated the procedure well. Findings: A vocal teacher film of the abdomen was obtained. Surgical clips, consistent with a previous cholecystectomy, were seen in the area of the right upper quadrant of the abdomen. The esophagus was successfully intubated under direct vision without detailed examination of the pharynx, larynx, and associated structures, and upper GI tract. The upper GI tract was grossly normal. The major papilla was small. The bile duct was deeply cannulated with the short-nosed traction sphincterotome and 0.025 in Visiglide guidewire (PD not cannulated or injected today). Contrast was injected. I personally interpreted the bile duct images. Contrast extended to the hepatic ducts. A cholecystectomy had been performed. The main bile duct was moderately dilated. The largest diameter was 10 mm. The biliary orifice was stenotic. This appeared benign. Biliary sphincterotomy was made with a monofilament CleverCut distal wire sphincterotome using ERBE electrocautery. There was no post-sphincterotomy bleeding. To discover objects, the biliary tree was swept with a 12 mm balloon starting at the bifurcation. Nothing was found. The endoscope was withdrawn from the patient. Indomethacin 100 mg was given via suppository to decrease the risk of post-ERCP pancreatitis (PEP). Impression: - The major papilla appeared to be small. - Biliary papillary stenosis, benign. - The entire main bile duct was moderately dilated. - The patient has had a cholecystectomy. - A biliary sphincterotomy was performed. - The biliary tree was swept and nothing was found. - Indomethacin given to decrease risk of post-ERCP pancreatitis. Recommendation: - Avoid aspirin and nonsteroidal anti-inflammatory medicines for 5 days. - Clear liquid diet today. - Observe patient's clinical course following today's ERCP with therapeutic intervention. Neel Vaughn D.O. Neel Vaughn DO 07/19/2022 2:34:33 PM This report has been signed electronically. Note Initiated On: 07/19/2022 1:48 PM Number of Addenda: 0 I attest to the content of the Intraoperative Record and orders documented therein, exceptions below {[id number]}
[2022-07-19] MEDS: fentaNYL citrate PF 100 MCG/2 ML VIAL IV PRN ×2 (14:47→14:52)
--- NOTE | 2022-07-19 15:02 | Fluoroscopy Report ---
[place] ERCP biliary ductal CLINICAL HISTORY: W/EUS TECHNIQUE: 7 views were obtained with the C-arm in the OR with the above procedure. Total fluoroscopy time was 48 seconds. Radiation dose was 7.03 mGy. Comparison: Comparison is made to CT abdomen pelvis 07/16/2022 FINDINGS/IMPRESSION: Intraoperative images were obtained of ERCP. Please correlate with intraoperative fluoroscopy and operative report. ACT 112: Negative or not required by law. Electronically signed by: Loco Mijares M.D. 07/19/2022 3:01 PM
[2022-07-19] MEDS: SUCRALFATE 1 GM TAB PO SCH ×2 (16:30→20:49)
[2022-07-19] MEDS: ONDANSETRON INJ 2 MG/ML 2 ML VIAL IV PRN (16:31)
[2022-07-20] MEDS: POLYETHYLENE (MIRALAX) 17 GM PACK PO SCH ×3 (02:07→11:57)
[2022-07-20] MEDS: oxyCODONE/ACETAMINOPHEN 10-325 TAB PO PRN ×4 (02:07→23:42)
[2022-07-20] MEDS: HYDROmorphone INJ 0.5 MG/0.5 ML SYR IV PRN ×4 (04:21→21:54)
[2022-07-20 07:33] LABS: Albumin Level 3.7 gm/dl (3.4-5.0); Bilirubin,Total 0.6 mg/dl (0.2-1.0); Calcium 8.5 mg/dl (8.6-10.3); Potassium 3.5 mmol/L (3.5-5.1)
[2022-07-20 07:38] LABS: Basophils # (auto) 0.04 K/uL (0-0.2); Basophils % (auto) 0.6 %; Eosinophils # (auto) 0.07 K/uL (0-0.50); Eosinophils % (auto) 1.1 %; Hematocrit (blood only) 28.8 % (37.0-47.0); Hemoglobin 10.2 g/dl (12.0-16.0); Immature Granulocytes # (auto) 0.02 K/uL (0.01-0.20); Immature Granulocytes % (auto) 0.3 %; Lymphocytes # (auto) 1.53 K/uL (1.2-3.4); Lymphocytes % (auto) 23.7 %; Mean Corpuscular Hemoglobin 33.6 pg (25.0-34.0); Mean Corpuscular Hgb Conc 35.4 g/dL (32.0-36.0); Mean Corpuscular Volume 94.7 fL (80.0-100.0); Mean Platelet Volume 10.6 fL (9.4-12.4); Monocytes # (auto) 0.44 K/uL (0.11-0.59); Monocytes % (auto) 6.8 %; Neutrophils # (auto) 4.36 K/uL (1.40-6.50); Neutrophils % (auto) 67.5 %; Platelet Count 208 K/uL (130-400); RDW Coefficient of Variation 12.7 % (11.5-14.5); RDW Standard Deviation 44.1 fL (36.4-46.3); Red Blood Count 3.04 M/uL (4.20-5.40); White Blood Count 6.46 K/ul (4.8-10.8)
[2022-07-20 07:39] LABS: Albumin Globulin Ratio 1.9 (0.9-2); BUN Creatinine Ratio 10.4 (10-20); Creatinine Clr Calc Pharmacy 139.6 ml/min; Est GFR (African American) 130.7 ml/min; Est GFR (Non-African American) 112.8 ml/min; Total Protein 5.7 gm/dl (6.0-8.3)
--- NOTE | 2022-07-20 08:02 | Hospitalist Progress Note ---
Date of Service July 20, 2022 Assessment & Plan (1) Intractable abdominal pain: Plan: 52 yo F with PMHx of cholecystectomy, SBO, pancreatitis episodes x3, NEL, MDD, cervical radiculopathy s/p cervical fusion presenting with abdominal pain. 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 Has had 4 episodes like this since discharge from [facility] 06/26 for acute pancreatitis. No leukocytosis. Lipase normal. Afebrile. -Labs show a elevated total bilirubin of 1.1 and an alk phos of 129. Slight elevation of alk phos to 165. Slight bump in AST on 07/17. We will continue to trend -CT A/P without acute or inflammatory process. CTA with a large common bile duct and MRCP is considered due to laboratory evidence of bili obstruction. -GI consulted -- MRCP did not show any choledocholithiasis, did have common bile duct dilation likely secondary to reservoir effect. -- Believe all signs are pointing to ampulla/bile duct as main cause of abdominal pain. -- EGD, EUS, ERCP performed on 07/19 which showed gastritis -Pain control with increased dose of percocet - 10/325 (from 7.5/325) and IV Dilaudid 0.25 mg every 4 hours as needed for breakthrough pain. -IV zofran for nausea -IV pepcid and PPI scheduled -Continue Maintenance IVF due to poor PO intake. Patient did have some point tenderness on the thoracic spine which may be the causation of some of her abdominal pain. Attempted to do some OMT to the thoracic spine which did not improve abdominal pain. Will order MRI with and without contrast to the thoracic spine. Transaminitis Anemia Transaminitis and anemia most likely cause from patient's ERCP performed on 07/19 and due to a confirmation that occludes the CBD. Should resolve after a few days. We will trend liver enzymes and hemoglobin, if gross GI bleeding then ERCP may be needed to clear the bile duct. Constipation -Has not had a bowel movement since Saturday. Given a suppository glycerin which did not help. -Given a suppository Dulcolax on 07/18 and started as needed MiraLAX daily. -Most likely secondary to chronic opioid use as well as not being able to eat due to abdominal pain. Hypoproteinemia -drop in protein level. likely from Poor PO intake -follow closely post ERCP for need of parenteral nutrition. Depression and Anxiety -cont. wellbutrin, buspirone, sertraline, clonazepam Cervical radiculopathy -cont. gabapentin Chronic neck pain -Follows with pain management, currently using Percocet 7.5 mg as needed. Hypertension -Continue on home amlodipine 5 mg DVT ppx: SCDs, lovenox 40mg FEN/GI: Clear liquids advance as tolerated IVF @ 100ml/hr Code Status: Full Dispo: Med Surg (2) MDD (major depressive disorder): (3) Nausea & vomiting: (4) History of pancreatitis: (5) NEL (generalized anxiety disorder): (6) Transaminitis: Admission and Anticipated Discharge Date Admission Date: July 16, 2022 Supervising Physician Co-Signing Physician Notes Resident Physician Supervision Note: I independently interviewed and examined the patient and verified the delarosa history and physical, reviewed labs and image studies and agree with resident findings and care plan. Subjective Patient was seen bedside this morning. When entering the room patient was upset and crying. Patient was upset about her talk with the GI doctors. She states that her pain has not been well controlled and that she requires more than 0.25mg Dilaudid and needs on 1.0 mg Dilaudid. She was able to eat soup this morning, though has still not had a bowel movement since Saturday. She states that she is having flatulence but no bowel movement. She continues to complain of sharp stabbing pain that feels like spasms in the epigastric region as well as the left upper quadrant of her abdominal wall. Review of Systems Review of Systems: All systems reviewed & are unremarkable except as noted in Subjective Physical Exam Constitutional: WD/WN, vitals as above ENMT: external ear and nose normal, oropharynx normal Neck: trachea midline, no thyromegaly Respiratory: normal respiratory effort, lungs clear to auscultation Cardiovascular: RRR, no murmur, no edema Gastrointestinal (Abdomen): Inspection/Auscultation: abdomen normal to inspection and normal bowel sounds Percussion/Palpation: + abdomen tender (Epigastric) Musculoskeletal: Extremities: no cyanosis and no clubbing Point tenderness along the thoracic spine with radiation to the abdomen. Skin: no rashes, warm and dry Neurologic: PERRL, EOMI, accommodation nl, no face palsy, no dysarthria Psychiatric: Orientation: alert and oriented x 3 Results & Data Results & Data Vital Signs (Past 12 Hours) Vital Signs Temp Pulse Pulse Resp BP Pulse Ox O2 Del Method 07/20/22 07:53 36.8 C 79 16 134/79 97 Room Air 07/20/22 03:28 36.8 C 70 14 132/75 98 Room Air 07/19/22 23:03 36.6 C 75 18 137/81 99 Room Air (3) Nausea & vomiting Vomiting type: unspecified Qualified Code(s): R11.2 - Nausea with vomiting, unspecified
[2022-07-20] MEDS: FAMOTIDINE 20 MG in SYRINGE 3 ML IV SCH ×2 (08:03→20:35)
[2022-07-20] MEDS: PANTOprazole 40 MG in SYRINGE 0 ML IV SCH ×2 (08:03→20:24)
[2022-07-20] MEDS: buPROPion XL 150 MG TABCR PO SCH (08:03)
[2022-07-20] MEDS: busPIRone 5 MG TAB PO SCH ×2 (08:03→20:24)
[2022-07-20] MEDS: SERTRALINE HCL 50 MG TABLET PO SCH (08:04)
[2022-07-20] MEDS: ENOXAPARIN INJ 40 MG/0.4 ML SYR SQ SCH (08:04)
[2022-07-20] MEDS: GABAPENTIN 800 MG TAB PO SCH ×2 (08:04→20:25)
[2022-07-20] MEDS: SUCRALFATE 1 GM TAB PO SCH ×4 (08:04→20:26)
[2022-07-20] MEDS: amLODIPine BESYLATE 5 MG TAB PO SCH (08:04)
[2022-07-20] MEDS: NSS + 20MEQ KCL 20 MEQ/1,000 ML BAG IV SCH ×2 (09:47→21:33)
--- NOTE | 2022-07-20 10:33 | Gastroenterology Progress Note ---
Date of Service July 20, 2022 Assessment & Plan (1) Intractable abdominal pain: (2) Elevated LFTs: Plan: Case disscussed w Dr. Armstrong who saw the pt with me. Case also reviewed by Dr. Hendrix, advanced endoscopist. Suspects the el transaminases from ampullary obstruction from bleeding at sphincterotomy, or passage of sludge after ERCP. Given her normal lipase, normal WBC/VS, tolerance of PO, report of pain at apparent baseline, we recommends conservative care for now and OK to advance diet. Please repeat LFTs and lipase tomorrow, and notify us if bili rises, LFTs rise. (3) Anemia: Plan 1. Follow LFTs, Hb/Hct, BUN. 2. Monitor for gross GI bleeding. 3. Advance diet. 4. Pain needs to be addressed by primary hospitalist team. No clear GI cause of pain. 5. Will follow conservatively. Expect to resolve in the next few days. If LFTs continue to increase and Hb continues to decrease or if gross GI bleeding, then may need repeat ERCP. Admission and Anticipated Discharge Date Admission Date: July 16, 2022 Supervising Physician Co-Signing Physician Notes Attg add: Pt reports ongoing chronic pain; she tells me this is not clearly worse from baseline. On exam, she is sitting in chair, able to rise from seated position without difficulty. Her lunch tray of clear liquids is mostly empty. She is crying and tearful. She reports tenderness to the light touch trhought her upper abdomen. Her LFTs have increased. LIkely transient ampullary obstruction post ERCP, related to edema, clot, or sludge. Plan conservative care, daily labs as above. Subjective Seen at bedside, sitting in chair. Initially pt emotionally happy or at least content. After discussing mild drop in Hb and worsening of transaminases, she was tearful, focused on pain med needs. Also explained this to the pt's on speaker phone: these findings are likely from mild bleeding and clot formation that partially occludes the CBD as a result of yesterday's ERCP w sphincterotomy. Tells us pain prior to ERCP was left upper, now more diffuse upper. Unsure if pain better/worse compared to prior. Able to drink all of her clear liquid breakfast tray w/o nausea/vomiting. Review of Systems Review of Systems: ROS: Gen: + hungry, hasn't eaten food for approx one week. Denies fevers, weight loss Eyes: No eye redness, or pain, no recent vision changes Resp: No SOB, no cough Cardio: No palpitations/irregular beats, no chest pain GI: + pain : Denies pain on urination; no dark urine Skin: No jaundice, itching or new rashes Physical Exam Constitutional: well developed, well nourished, + thin and cooperative; + uncomfortable Eyes: PERRL, conjunctivae normal, anicteric sclerae ENMT: external ear and nose normal, oropharynx normal Neck: trachea midline, no thyromegaly Respiratory: normal respiratory effort, lungs clear to auscultation Cardiovascular: RRR, no murmur, no edema Gastrointestinal (Abdomen): Exquisitely tender over every area of the abdomen, pushing the palpataing hand away, + voluntary guarding Abd is soft and non distended, there are normal BS present. Skin: no rashes, warm and dry Neurologic: PERRL, EOMI, accommodation nl, no face palsy, no dysarthria Psychiatric: Orientation: alert and oriented x 3 Apperance: appropriately dressed, appropriately groomed and appeared stated age Eye Contact: good eye contact Mood: + anxious mood Thought Process: goal directed thought process tearful Lymphatic: no cervical or axillary lymphadenopathy Results & Data Vital Signs (Past 12 Hours) Vital Signs Temp Pulse Pulse Resp BP Pulse Ox O2 Del Method 07/20/22 07:53 36.8 C 79 16 134/79 97 Room Air 07/20/22 03:28 36.8 C 70 14 132/75 98 Room Air 07/19/22 23:03 36.6 C 75 18 137/81 99 Room Air Laboratory Results T Bili 0.6 AST 46 yesterday ->355 ALT 47->151 Alk Phos 129->226 WBC 6.4, Hb 129 yesterday ->10.2 today, Hct 28.2, Plts 208, Na 141, K 3.5, Cl 107, CO2 28, BUN 15, Cr 0.4, glucose 118 Diagnostic Findings EUS 07/19: - There was dilation in the common bile duct which measured up to 10 mm. Otherwise normal ERCP: 07/19: - The major papilla appeared to be small. - Biliary papillary stenosis, benign. - The entire main bile duct was moderately dilated. - The patient has had a cholecystectomy. - A biliary sphincterotomy was performed. - The biliary tree was swept and nothing was found.
[2022-07-20] MEDS ORDERED: HYDROmorphone INJ 0.5 MG/0.5 ML SYR IV STA (11:30)
[2022-07-20] MEDS: clonazePAM 1 MG TAB PO PRN (16:13)
[2022-07-20] MEDS ORDERED: GADOBUTROL 65ML VIAL IV ONE (17:20)
--- NOTE | 2022-07-20 17:45 | Magnetic Resonance Report ---
MR thoracic spine wo/w con CLINICAL HISTORY: Point tenderness on T spine w/ refered pain to ab TECHNIQUE: Multiplanar sequences through the thoracic spine were obtained, without and with intraveno us contrast. Comparison: Comparison is made to MRI thoracic spine 08/23/2020 FINDINGS: The alignment is anatomical. Disks are normal in height and signal. The spinal canal and neural foramina are patent. The spinal ligaments are intact, without evidence of disruption or abnormal signal intensity. The spi nal cord is normal in signal intensity and there is no evidence of cord contusion. There is no eviden ce of an extradural, intradural, extramedullary or intramedullary lesion. Visualized soft tissues are normal. IMPRESSION: No evidence of cord compression, significant neuroforaminal narrowing or ligamentous injury. ACT 112: Negative or not required by law. Electronically signed by: Loco Mijares M.D. 07/20/2022 5:43 PM
[2022-07-21] MEDS: HYDROmorphone INJ 0.5 MG/0.5 ML SYR IV PRN ×4 (04:40→20:34)
[2022-07-21] MEDS: oxyCODONE/ACETAMINOPHEN 10-325 TAB PO PRN ×3 (06:38→22:45)
--- NOTE | 2022-07-21 06:47 | Hospitalist Progress Note ---
Date of Service July 21, 2022 Assessment & Plan (1) Intractable abdominal pain: Plan: 52 yo F with PMHx of cholecystectomy, SBO, pancreatitis episodes x3, NEL, MDD, cervical radiculopathy s/p cervical fusion presenting with abdominal pain. 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 Has had 4 episodes like this since discharge from [facility] 06/26 for acute pancreatitis. No leukocytosis. Lipase normal. Afebrile. -Labs show a elevated total bilirubin of 1.1 and an alk phos of 129. Slight elevation of alk phos to 165. Slight bump in AST on 07/17. We will continue to trend -CT A/P without acute or inflammatory process. CTA with a large common bile duct and MRCP is considered due to laboratory evidence of bili obstruction. -GI consulted -- MRCP did not show any choledocholithiasis, did have common bile duct dilation likely secondary to reservoir effect. -- Believe all signs are pointing to ampulla/bile duct as main cause of abdominal pain. -- EGD, EUS, ERCP performed on 07/19 which showed gastritis --Cleared from a GI standpoint. -Pain control with increased dose of percocet - 10/325 (from 7.5/325) and IV Dilaudid 0.25 mg every 4 hours as needed for breakthrough pain. -IV zofran for nausea -IV pepcid and PPI scheduled -Continue Maintenance IVF due to poor PO intake. Patient did have some point tenderness on the thoracic spine on 07/20. Attempted to do some OMT to the thoracic spine on 07/20, which did not improve abdominal pain. MRI of the thoracic spine was negative. Patient would like to speak with a dietitian regarding what she should and should not eat. We will consult dietary at this time. Transaminitis Anemia Transaminitis and anemia most likely cause from patient's ERCP performed on 07/19 and due to a confirmation that occludes the CBD. Should resolve after a few days. Hemoglobin stable at this time, AST improved while ALT continued to slightly rise. No concerns at this time. Constipation (resolved) Was able to have a bowel movement with the help of suppositories and MiraLAX. Most likely secondary to chronic opioid use as well as not being able to eat due to abdominal pain. We will continue to monitor while inpatient, recommend to follow-up with PCP regarding ongoing chronic constipation Hypoproteinemia -drop in protein level. likely from Poor PO intake. Though able to eat better today. Follow Depression and Anxiety -cont. wellbutrin, buspirone, sertraline, clonazepam Cervical radiculopathy -cont. gabapentin Chronic neck pain -Follows with pain management, currently using Percocet 7.5 mg as needed at home. Hypertension -Continue on home amlodipine 5 mg DVT ppx: SCDs, lovenox 40mg FEN/GI: Low-fat diet Code Status: Full, low-fat Dispo: Med Surg (2) MDD (major depressive disorder): (3) Nausea & vomiting: (4) History of pancreatitis: (5) NEL (generalized anxiety disorder): (6) Transaminitis: Admission and Anticipated Discharge Date Admission Date: July 16, 2022 Supervising Physician Co-Signing Physician Notes Resident Physician Supervision Note: I independently interviewed and examined the patient and verified the delarosa history and physical, reviewed labs and image studies and agree with resident findings and care plan. Subjective Patient seen bedside this morning sitting comfortably in her bed. She states that she has been eating better. Has been able to have a significant bowel movement over the last 24 hours. She still endorses epigastric pain that radiates to the left upper quadrant. She states that she would like to talk to a dietitian regarding what she can eat. Review of Systems Review of Systems: All systems reviewed & are unremarkable except as noted in Subjective Physical Exam Constitutional: WD/WN, vitals as above ENMT: external ear and nose normal, oropharynx normal Neck: trachea midline, no thyromegaly Respiratory: normal respiratory effort, lungs clear to auscultation Cardiovascular: RRR, no murmur, no edema Gastrointestinal (Abdomen): Inspection/Auscultation: abdomen normal to inspection and normal bowel sounds Percussion/Palpation: + abdomen tender (Epigastric) Musculoskeletal: Extremities: no cyanosis and no clubbing Skin: no rashes, warm and dry Neurologic: PERRL, EOMI, accommodation nl, no face palsy, no dysarthria Psychiatric: Orientation: alert and oriented x 3 Results & Data Results & Data Vital Signs (Past 12 Hours) Vital Signs Temp Pulse Resp BP Pulse Ox O2 Del Method 07/20/22 20:25 Room Air 07/20/22 22:30 36.8 C 79 16 140/77 97 Room Air 07/20/22 20:21 36.8 C 81 16 119/73 98 Room Air Resident Activity Tracking Resident Involvement: Resident Care Provided Care Provided: Adult Hospital Medicine (3) Nausea & vomiting Vomiting type: unspecified Qualified Code(s): R11.2 - Nausea with vomiting, unspecified
[2022-07-21 07:00] LABS: Hematocrit (blood only) 28.8 % (37.0-47.0); Hemoglobin 10.1 g/dl (12.0-16.0); Mean Corpuscular Hemoglobin 33.3 pg (25.0-34.0); Mean Corpuscular Hgb Conc 35.1 g/dL (32.0-36.0); Mean Platelet Volume 10.4 fL (9.4-12.4); Platelet Count 213 K/uL (130-400); RDW Coefficient of Variation 13.2 % (11.5-14.5); RDW Standard Deviation 45.6 fL (36.4-46.3); Red Blood Count 3.03 M/uL (4.20-5.40)
[2022-07-21 07:10] LABS: Albumin Globulin Ratio 1.8 (0.9-2); Albumin Level 3.5 gm/dl (3.4-5.0); BUN Creatinine Ratio 10.3 (10-20); Bilirubin,Total 0.3 mg/dl (0.2-1.0); Calcium 8.2 mg/dl (8.6-10.3); Creatinine Clr Calc Pharmacy 115.5 ml/min; Est GFR (African American) 122.8 ml/min; Globulin 1.9 gm/dl (2.5-4.0); Potassium 3.6 mmol/L (3.5-5.1); Total Protein 5.4 gm/dl (6.0-8.3)
[2022-07-21 07:22] LABS: Basophils # (auto) 0.06 K/uL (0-0.2); Basophils % (auto) 1.4 %; Eosinophils # (auto) 0.33 K/uL (0-0.50); Eosinophils % (auto) 7.9 %; Immature Granulocytes # (auto) 0.01 K/uL (0.01-0.20); Immature Granulocytes % (auto) 0.2 %; Lymphocytes # (auto) 2.12 K/uL (1.2-3.4); Lymphocytes % (auto) 50.5 %; Monocytes # (auto) 0.21 K/uL (0.11-0.59); Neutrophils # (auto) 1.47 K/uL (1.40-6.50)
[2022-07-21] MEDS: amLODIPine BESYLATE 5 MG TAB PO SCH (08:47)
[2022-07-21] MEDS: FAMOTIDINE 20 MG in SYRINGE 3 ML IV SCH ×2 (08:47→20:34)
[2022-07-21] MEDS: PANTOprazole 40 MG in SYRINGE 0 ML IV SCH ×2 (08:47→20:35)
[2022-07-21] MEDS: SUCRALFATE 1 GM TAB PO SCH ×4 (08:47→20:35)
[2022-07-21] MEDS: SERTRALINE HCL 50 MG TABLET PO SCH (08:47)
[2022-07-21] MEDS: ENOXAPARIN INJ 40 MG/0.4 ML SYR SQ SCH (08:48)
[2022-07-21] MEDS: GABAPENTIN 800 MG TAB PO SCH ×2 (08:48→20:35)
[2022-07-21] MEDS: buPROPion XL 150 MG TABCR PO SCH (08:48)
[2022-07-21] MEDS: busPIRone 5 MG TAB PO SCH ×2 (08:48→20:58)
[2022-07-21] MEDS: NSS + 20MEQ KCL 20 MEQ/1,000 ML BAG IV SCH (09:08)
--- NOTE | 2022-07-21 09:12 | Gastroenterology Progress Note ---
Date of Service July 21, 2022 Assessment & Plan (1) Intractable abdominal pain: Plan: Symptomatically she is better. Her LFT's are not worse but they haven't normalized yet. I am okay with her going home if she can tolerate her diet without issues. LFT's can be followed as an outpatient either by myself or her PCP. She told me yesterday she will be switching her GI care to [facility]. That is her choice. Admission and Anticipated Discharge Date Admission Date: July 16, 2022 Subjective Symptomatically she says she feels better. Wants to liberalize her diet more. Not as focused on pain today as much as her LFT's. They are better in some aspects and a little worse in others. She thinks she might want to go home later today if she can tolerate a diet with more fat in it. Physical Exam Physical Exam: She looks well Results & Data Vital Signs (Past 12 Hours) Vital Signs Temp Pulse Resp BP Pulse Ox O2 Del Method 07/21/22 07:55 36.8 C 70 16 143/80 H 99 Room Air 07/20/22 22:30 36.8 C 79 16 140/77 97 Room Air Laboratory Results 07/21/22 07/21/22 Range/Units 06:13 06:13 WBC 4.20 L (4.8-10.8) K/ul RBC 3.03 L (4.20-5.40) M/uL Hgb 10.1 L (12.0-16.0) g/dl Hct 28.8 L (37.0-47.0) % MCV 95.0 (80.0-100.0) fL MCH 33.3 (25.0-34.0) pg MCHC 35.1 (32.0-36.0) g/dL RDW Std Deviation 45.6 (36.4-46.3) fL RDW Coeff of Angelique 13.2 (11.5-14.5) % Plt Count 213 (130-400) K/uL MPV 10.4 (9.4-12.4) fL Immature Gran % (Auto) 0.2 % Neut % (Auto) 35.0 % Lymph % (Auto) 50.5 % Simpson % (Auto) 5.0 % Eos % (Auto) 7.9 % Baso % (Auto) 1.4 % Neut # (Auto) 1.47 (1.40-6.50) K/uL Lymph # (Auto) 2.12 (1.2-3.4) K/uL Simpson # (Auto) 0.21 (0.11-0.59) K/uL Eos # (Auto) 0.33 (0-0.50) K/uL Baso # (Auto) 0.06 (0-0.2) K/uL Immature Gran # (Auto) 0.01 (0.01-0.20) K/uL Sodium 143 (136-145) mmol/L Potassium 3.6 (3.5-5.1) mmol/L Chloride 108 H (98-107) mmol/L Carbon Dioxide 31 (21-32) mmol/L Anion Gap 4 (3-11) BUN 6 (6-23) mg/dl Creatinine 0.58 L (0.6-1.2) mg/dl Est Cr Clr Drug Dosing 115.5 ml/min Est GFR ( Amer) 122.8 ml/min Est GFR (Non-Af Amer) 106.0 ml/min BUN/Creatinine Ratio 10.3 (10-20) Glucose 109 H (70-99(Fasting)) mg/dl Calcium 8.2 L (8.6-10.3) mg/dl Total Bilirubin 0.3 (0.2-1.0) mg/dl AST 186 H (13-39) U/L ALT 202 H (7-52) U/L Alkaline Phosphatase 213 H (34-104) U/L Total Protein 5.4 L (6.0-8.3) gm/dl Albumin 3.5 (3.4-5.0) gm/dl Globulin 1.9 L (2.5-4.0) gm/dl Albumin/Globulin Ratio 1.8 (0.9-2)
[2022-07-21] MEDS: ONDANSETRON INJ 2 MG/ML 2 ML VIAL IV PRN (22:48)
[2022-07-22] MEDS: HYDROmorphone INJ 0.5 MG/0.5 ML SYR IV PRN ×3 (01:38→12:49)
[2022-07-22] MEDS: oxyCODONE/ACETAMINOPHEN 10-325 TAB PO PRN ×2 (06:06→13:59)
[2022-07-22] MEDS: FAMOTIDINE 20 MG in SYRINGE 3 ML IV SCH (08:20)
[2022-07-22] MEDS: PANTOprazole 40 MG in SYRINGE 0 ML IV SCH (08:20)
[2022-07-22] MEDS: busPIRone 5 MG TAB PO SCH (08:20)
[2022-07-22] MEDS: GABAPENTIN 800 MG TAB PO SCH (08:21)
[2022-07-22] MEDS: amLODIPine BESYLATE 5 MG TAB PO SCH (08:21)
[2022-07-22] MEDS: buPROPion XL 150 MG TABCR PO SCH (08:21)
[2022-07-22] MEDS: ENOXAPARIN INJ 40 MG/0.4 ML SYR SQ SCH (08:21)
[2022-07-22] MEDS: SUCRALFATE 1 GM TAB PO SCH ×2 (08:21→12:49)
[2022-07-22] MEDS: SERTRALINE HCL 50 MG TABLET PO SCH (08:21)
[2022-07-22 08:28] LABS: Hematocrit (blood only) 31.9 % (37.0-47.0); Hemoglobin 10.7 g/dl (12.0-16.0); Mean Corpuscular Hgb Conc 33.5 g/dL (32.0-36.0); Mean Corpuscular Volume 98.5 fL (80.0-100.0); Platelet Count 215 K/uL (130-400); RDW Coefficient of Variation 13.5 % (11.5-14.5); RDW Standard Deviation 48.8 fL (36.4-46.3); Red Blood Count 3.24 M/uL (4.20-5.40); White Blood Count 5.28 K/ul (4.8-10.8)
[2022-07-22 08:39] LABS: Albumin Level 3.8 gm/dl (3.4-5.0); Bilirubin,Total 0.3 mg/dl (0.2-1.0); Potassium 3.5 mmol/L (3.5-5.1)
[2022-07-22 08:45] LABS: Albumin Globulin Ratio 2.1 (0.9-2); BUN Creatinine Ratio 16.2 (10-20); Creatinine Clr Calc Pharmacy 98.5 ml/min; Est GFR (African American) 116.6 ml/min; Est GFR (Non-African American) 100.6 ml/min; Globulin 1.8 gm/dl (2.5-4.0); Total Protein 5.6 gm/dl (6.0-8.3)
--- NOTE | 2022-07-22 09:27 | Gastroenterology Progress Note ---
Date of Service July 22, 2022 Assessment & Plan (1) Intractable abdominal pain: Plan: She is improving. Hopefully sphincterotomy will take care of her recurrent pain. Discharge today. Follow LFT's as an outpatient Admission and Anticipated Discharge Date Admission Date: July 16, 2022 Subjective Pain almost gone. LFT's are improving Physical Exam Physical Exam: She looks well Results & Data Vital Signs (Past 12 Hours) Vital Signs Temp Pulse Resp BP Pulse Ox O2 Del Method 07/22/22 07:10 36.8 C 70 18 131/77 97 Room Air 07/21/22 22:44 36.8 C 76 18 134/72 97 Room Air
[2022-07-22] MEDS ORDERED: ERGOCALCIFEROL 50,000 UNITS 1250 MCG CAP PO ONE (12:30)
--- NOTE | 2022-07-22 13:57 | Discharge Summary ---
Date of Service July 22, 2022 Admission HPI Per Admitting Provider 52 yo F with PMHx of cholecystectomy, SBO, pancreatitis episodes x3, NEL, MDD, cervical radiculopathy s/p cervical fusion presenting with abdominal pain. She was recently discharged from [facility] on 06/26 for acute pancreatitis. Since then she has had 4 episodes similar to her presentation today but states her current episode has been the worst. Denies specific trigger. Pain began morning of 07/15 and has been worsening since. Pain located in epigastric region with radiation down to LLQ. Associated vomiting, nausea, and diarrhea. Denies fevers, headache, fatigue, chest pain, sob, dysuria. Has had limited food intake today. Admission Exam Per Admitting Provider Constitutional: in no acute distress, pleasant, sad affect, intact memory. AOx3. Vitals as above. HEENT: No scleral injection or discharge.Dry mucous membranes. Neck: Supple without lymphadenopathy or thyromegaly. Trachea midline. Lungs: Clear to auscultation bilaterally with good effort. Cardiac: Regular rate and rhythm. No murmurs. No extremity edema. 2+ distal peripheral pulses. Abdomen:Bowel sounds present. Soft and nondistended.Tender over epigastric region, LUQ, LLQ. No guarding. No hepatosplenomegaly. MSK: No cyanosis or clubbing. Extremities motor strength 5/5. Skin: No rashes, warm, dry. Neurologic: no focal deficits Principal Diagnosis Intractable abdominal pain Discharge Exam Constitutional WD/WN, vitals as above no acute distress Eyes PERRL, conjunctivae normal, anicteric sclerae ENMT external ear and nose normal, oropharynx normal Neck trachea midline, no thyromegaly Respiratory normal respiratory effort, lungs clear to auscultation Cardiovascular RRR, no murmur, no edema Gastrointestinal (Abdomen) Inspection/Auscultation: abdomen normal to inspection and normal bowel sounds Percussion/Palpation: + abdomen tender (Epigastric) and abdomen soft; no hepatomegaly and no abdominal mass Musculoskeletal no cyanosis or clubbing, extremities motor strength 5/5 Skin no rashes, warm and dry Neurologic PERRL, EOMI, accommodation nl, no face palsy, no dysarthria Psychiatric A+Ox3, euthymic affect Discharge Data Allergies Allergy/AdvReac Type Severity Reaction Status Date / Time rizatriptan Allergy Severe Difficulty Verified 07/15/22 20:02 Breathing benzoin Allergy Intermediate USED TO Verified 07/15/22 20:02 PUT UNDER STERI STRIPS TO KEEP THEM ON -- BLISTERS tramadol AdvReac Intermediate N/V Verified 07/15/22 20:02 Consultations 07/15/22 22:53 ED Decision to Admit Stat 07/16/22 06:05 Consult Gastroenterology Routine Procedures Performed Operation Date: 07/19/22 11:50 Actual Procedures p Esophagogastroduodenoscopy - Neel Vaughn, DO s Endoscopic Ultrasonography Upper - Neel Vaughn DO p Endoscopic Retrograde Cholangiopancreato - Neel Vaughn, DO Ordered Studies Abdomen/Pelvis CT 07/15/22 19:30 Exam(s): CT ABDOMEN + PELVIS With Contrast IV Amt: 83ML OPTIRAY 350 EXAM: CT Abdomen and Pelvis With Intravenous Contrast CLINICAL HISTORY: Reason for exam: mid abd pain, hx pancreatitis. TECHNIQUE: Axial computed tomography images of the abdomen and pelvis with intravenous contrast. CTDI is 6.88 mGy and DLP is 327.73 mGy-cm. Automated exposure control was utilized for the study. A dose lowering technique was utilized adhering to the principles of ALARA. CONTRAST: Patient received 83ML OPTIRAY 350 of IV contrast COMPARISON: 06/21/22 FINDINGS: Lung bases are clear. Gallbladder surgically absent. There is mild intra-hepatic biliary dilatation and mild enlargement of the common bile duct, similar to prior, likely reservoir effect. Liver, spleen, and adrenal glands are unremarkable. Pancreas appears normal by CT, without evidence of acute pancreatitis. Kidneys enhance symmetrically. There is no hydronephrosis or perinephric stranding. Aorta is normal in caliber. There is no adenopathy. There is no free air or significant free fluid. Appendix is normal. There is no bowel obstruction or inflammation. Uterus is surgically absent. Urinary bladder is unremarkable. Regional skeleton appears intact. IMPRESSION: No CT evidence of acute or inflammatory process. Electronically signed by: Maikol Guevara M.D. 07/15/22 22:35 PM Abdomen/Pelvis CTA 07/16/22 01:19 Exam(s): CTA ABDOMEN + PELVIS With Contrast IV Amt: 114 ML OPTIRAY 320 EXAM: CT Angiography Abdomen and Pelvis With Intravenous Contrast CLINICAL HISTORY: Reason for exam: r/o ischemic bowel. TECHNIQUE: Axial computed tomographic angiography images of the abdomen and pelvis with intravenous contrast. CTDI is 7.14 mGy and DLP is 339.8 mGy-cm. Automated exposure control was utilized for the study. A dose lowering technique was utilized adhering to the principles of ALARA. MIP reconstructed images were created and reviewed. CONTRAST: Patient received 114 ML OPTIRAY 320 of IV contrast COMPARISON: CT abdomen and pelvis 07/15/22 FINDINGS: Lung bases are clear. Gallbladder is surgically absent. Enlarged common bile duct is likely due to reservoir effect. Liver is enlarged. Spleen, pancreas, adrenal glands, and kidneys are unremarkable. There is no aortic aneurysm or dissection. Celiac artery and its branches are adequately patent. SMA is adequately patent. Single bilateral renal arteries are adequately patent. LAMBERTO is adequately patent. Bilateral iliac arteries are adequately patent. There is no adenopathy, free fluid, or free air. Appendix is normal. There is no bowel obstruction or inflammation. There are no CT findings of ischemic bowel. There is no bowel wall pneumatosis. There is no portal venous gas. Uterus is surgically absent. Urinary bladder is unremarkable. Regional skeleton appears intact. IMPRESSION: 1. No acute or inflammatory process. 2. Aorta and its branch vessels appear adequately patent. 3. No CT evidence of ischemic bowel. 4. Enlarged common bile duct is similar to prior exam and most likely due to reservoir effect. However, there is laboratory evidence of biliary obstruction, consider MRCP. Electronically signed by: Maikol Guevara M.D. 07/16/22 02:08 AM Cholangiopancreatography MRI 07/16/22 15:40 MR MRCP HISTORY: 52 years-old Female abdominal pain with elevated LFT's acute upper abdominal pain with elevated LFTs COMPARISON: CT abdomen and pelvis of same day, CT abdomen and pelvis 07/15/2022, MRCP 2021 TECHNIQUE: MRCP without the use of IV contrast was obtained according to institutional protocol. FINDINGS: Transport Technician localizer images demonstrate no gross extra abdominal abnormality. Study is mildly motion degraded. Cholecystectomy. Common bile duct is dilated measuring up to 10 mm. No biliary stricture or choledocholithiasis. The pancreatic duct is normal in caliber. No large pancreatic IPMN's or pancreatic divisum identified. Solid abdominal organs appear unremarkable. No free fluid or bowel dilation. No hydronephrosis. Duplicated IVC. No abdominal aortic aneurysm. IMPRESSION: 1. Cholecystectomy with common bile duct dilation redemonstrated, likely secondary to reservoir effect. 2. No choledocholithiasis identified. ACT 112: Negative or not required by law. The above report was generated using voice recognition software. It may contain grammatical, syntax or spelling errors. Electronically signed by: Juwan Soto M.D. 07/16/2022 7:03 PM Endo Retro Cholangiopancreatogram 07/19/22 11:50 [place] ERCP biliary ductal CLINICAL HISTORY: W/EUS TECHNIQUE: 7 views were obtained with the C-arm in the OR with the above procedure. Total fluoroscopy time was 48 seconds. Radiation dose was 7.03 mGy. Comparison: Comparison is made to CT abdomen pelvis 07/16/2022 FINDINGS/IMPRESSION: Intraoperative images were obtained of ERCP. Please correlate with intraoperative fluoroscopy and operative report. ACT 112: Negative or not required by law. Electronically signed by: Loco Mijares M.D. 07/19/2022 3:01 PM Thoracic Spine MRI 07/20/22 13:04 MR thoracic spine wo/w con CLINICAL HISTORY: Point tenderness on T spine w/ refered pain to ab TECHNIQUE: Multiplanar sequences through the thoracic spine were obtained, without and with intravenous contrast. Comparison: Comparison is made to MRI thoracic spine 08/23/2020 FINDINGS: The alignment is anatomical. Disks are normal in height and signal. The spinal canal and neural foramina are patent. The spinal ligaments are intact, without evidence of disruption or abnormal signal intensity. The spinal cord is normal in signal intensity and there is no evidence of cord contusion. There is no evidence of an extradural, intradural, extramedullary or intramedullary lesion. Visualized soft tissues are normal. IMPRESSION: No evidence of cord compression, significant neuroforaminal narrowing or ligamentous injury. ACT 112: Negative or not required by law. Electronically signed by: Loco Mijares M.D. 07/20/2022 5:43 PM 07/15/22 19:30 CT abd pelvis IV con only Stat 07/16/22 01:19 CT angio abdomen pelvis w con Routine 07/16/22 15:40 MR MRCP Routine 07/19/22 11:50 FL ERCP biliary ductal Routine 07/19/22 13:19 US upper EUS PACS images Routine 04/07/23 13:04 MRI Thoracic [MR thoracic spine wo/w con] Routine Hospital Course (1) Intractable abdominal pain: 52 yo F with PMHx of cholecystectomy, SBO, pancreatitis episodes x3, NEL, MDD, cervical radiculopathy s/p cervical fusion presenting with abdominal pain. 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 Has had 4 episodes like this since discharge from [facility] 06/26 for acute pancreatitis. No leukocytosis. Lipase normal. Afebrile. -Labs show a elevated total bilirubin of 1.1 and an alk phos of 129. Slight elevation of alk phos to 165. Slight bump in AST on 07/17. -CT A/P without acute or inflammatory process. CTA with a large common bile duct and MRCP is considered due to laboratory evidence of bili obstruction. -GI consulted -- MRCP did not show any choledocholithiasis, did have common bile duct dilation likely secondary to reservoir effect. -- Believe all signs are pointing to ampulla/bile duct as main cause of abdominal pain. -- EGD, EUS, ERCP performed on 07/19 which showed gastritis -Pain control with increased dose of Percocet - 10/325 (from 7.5/325) and IV Dilaudid 0.25 mg every 4 hours as needed for breakthrough pain. Patient did have some point tenderness on the thoracic spine on 07/20. Attempted to do some OMT to the thoracic spine on 07/20, which did not improve abdominal pain. MRI of the thoracic spine was negative. Patient's pain improved by time of discharge. The etiology of abdominal pain was not fully established during this visit. Recommend patient follow-up with gastroenterology at [facility] in 2 to 4 weeks. Transaminitis Transaminitis most likely cause from patient's ERCP performed on 07/19 and due to a confirmation that occludes the CBD. Transaminitis improving at time of discharge. Recommend patient follow-up with PCP and have repeat CMP in 1 week Constipation (resolved) Was able to have a bowel movement with the help of suppositories and MiraLAX. Most likely secondary to chronic opioid use as well as not being able to eat due to abdominal pain. Recommend to follow-up with PCP regarding ongoing chronic constipation Hypoproteinemia Most likely secondary to decreased oral intake of food secondary to epigastric pain. Patient is eating improved by the time of discharge and patient was able to eat a full diet consisting of low-fat. Depression and Anxiety -cont. wellbutrin, buspirone, sertraline, clonazepam Cervical radiculopathy -cont. gabapentin Chronic neck pain -Follows with pain management, currently using Percocet 7.5 mg as needed. -We will increase to Percocet 10 mg. Refilled prescription for 3 days. -Patient should follow-up with pain management regarding ongoing treatment for her pain. Hypertension -Continue on home amlodipine 5 mg Low vitamin D Given 50,000 units of ergocalciferol at time of discharge. Prescribed 50,000 units of ergocalciferol weekly for the next 2 months. Should have follow-up vitamin D studies by PCP. (2) MDD (major depressive disorder): (3) Nausea & vomiting: (4) History of pancreatitis: (5) NEL (generalized anxiety disorder): (6) Transaminitis: Total Time Total Time Spent Total Time Spent (In Minutes): I spent 35 minutes seeing the patient, reviewing the chart, and documenting today. Discharge Plan Discharge Items Patient Disposition: Home - Self-Care Reason For Visit: INTRACTABLE ABDOMINAL PAIN Discharge Diagnosis: Intractable abdominal pain Activity: Resume your previous activity Non-emergency contact: Primary Care Provider Call non-emergency contact if: you have any medication questions, your pain is unusual for you and your temperature is above 101.5 Follow-up/Referrals: Ghassan Hemphill MD [Outside Practitioners] - (Patient request to see Dr. Castillo, she will follow-up in 2 to 4 weeks.) Dominga Connolly CRNP [Primary Care Provider] - (Follow-up in 1 week) Diet: Low Fat Addtl Attending Provider Instructions: You were admitted to the hospital for intractable abdominal pain. A discharge summary will be sent to your primary care physician to ensure continuity of care. Please bring this discharge summary with you to your next office appointment so that your provider can review it at that time. Follow-up appointments: * Make a follow-up appointment with your PCP within the next week. It is very important that you follow up with them shortly after discharge from the hospital. * Requested an appointment with Dr. Castillo ([facility] gastroenterology) in 2 to 4 weeks. If they do not reach out to you in 2-3 business days please call their office number at . * Please follow-up with Dr. Benjamin regarding your ongoing pain management treatment. * Keep all your follow-up appointments as already scheduled. If you cannot make an appointment, notify your provider. Medications: Your medication list has been reviewed and reconciled upon discharge to ensure accuracy and continuity of care. An updated list of all your medications is included with your hospital discharge paperwork. Please review this list closely, and make note of any changes. * We sent in a new prescription to your pharmacy called ergocalciferol 50,000 units once a week for the next 2 months. * We sent in a prescription for oxycodoneacetaminophen 10-325 mg. Please take oxycodoneacetaminophen as needed for pain up to 4 times a day for the next 3 days. Please follow-up with pain management regarding further treatment. * If you have any issues filling these prescriptions, please call [phone] and ask to leave a message for Dr. Fraga. * Take your medications as instructed; do not skip a dose of your medicines. Make sure all of your doctors know every medicine you are taking (including [id number] medicines, vitamins, and supplements). Call your primary care provider before taking any new medicines (including over- the-counter medicines, vitamins, and supplements), because some of these may interact with your current medications, or may make your symptoms worse. Tell your primary care provider if you cannot afford your medications. CONTACT YOUR PRIMARY CARE PROVIDER if you experience any of the following: * Worsening of symptoms * Fever, chills, or fatigue * Difficulty following your treatment plan, or difficulty taking medications CALL 911 OR GO TO THE EMERGENCY DEPARTMENT if you experience any of the following: * Sudden, severe abdominal pain or nausea/vomiting * Severe chest pain, or chest pain that radiates (moves) to your jaw or arm * Sudden, severe shortness of breath or difficulty breathing Thank you for allowing us to participate in your care. Pending Studies at Discharge: Yes Studies:: Final pathology report Stand-Alone Forms: [facility], Pain - Opioid Pain Management, Smoking Cessation Medications and DC Order Prescriptions: New ergocalciferol (vitamin D2) 1,250 mcg (50,000 unit) capsule 50,000 unit PO WK 60 Days Qty: 7 0RF oxycodone-acetaminophen 10-325 mg tablet 1 tab PO QID PRN (Reason: pain) Qty: 12 0RF Continued clonazepam 1 mg tablet 1 mg PO BID PRN (Reason: Anxiety) bupropion HCl [Wellbutrin XL] 150 mg tablet extended release 24 hr 150 mg PO QAM acetaminophen [Tylenol Extra Strength] 500 mg Tablet 1,000 mg PO DIRECTED PRN (Reason: Pain) buspirone 10 mg tablet 20 mg PO BID oxycodone-acetaminophen 7.5-325 mg tablet 1 tab PO QID PRN (Reason: Pain) amlodipine [Norvasc] 5 mg Tablet 5 mg PO QAM 30 Days Qty: 30 0RF gabapentin 400 mg capsule 800 mg PO BID sertraline 50 mg tablet 75 mg PO QAM omeprazole 20 mg capsule,delayed release(DR/EC) 20 mg PO BID Discharge Orders: Discharge Order (Routine); Ordered 07/22/22 Ordered By: Eliud Kaur/Other Patient Handouts: Pancreatitis Acute Dc Admission Data Admit Date/Time: 07/16/22 01:17 Attending Provider: Loco Marinelli Admit Provider: Sivakumar Denise Primary Care Provider: Dominga Connolly Other Providers: Servando Dorman ; Alejandrina Treadwell Jr ; Mariel Sanchez Other Interventions: Discharge Summary Assessment (RN) Last Done: 07/22/22 14:07 Supervising Physician Co-Signing Physician Notes I also saw the patient and confirmed delarosa portions of the history and physical examination. I agree with the impression and plan as noted in the resident documentation. Upon our midmorning exam, the patient is seated in the bedside chair. EXAM 131/77, 70, 18, 36.8, 97% on room air Respirations are non-labored, lungs are clear Heart regular rate and rhythm DATA Hemoglobin 10.7 Sodium 141, potassium 3.5, BUN 11, creatinine 0.68 AST 63, ALT 140, alkaline phosphatase 192 (all trending down) Vitamin D 14.3 IMPRESSION AND PLAN Intractable abdominal pain, improved Gastroenterology consult appreciated Status post sphincterectomy Stable for discharge today Repeat LFTs as outpatient, although note they have been steadily declining/trending towards normal Increase home pain medications to oxycodoneAPAP 10/325 four times daily PRN for next 3-4 days (home dose 7.5/325). Prescription for oxycodoneAPAP 10/325 #12 sent to pharmacy; thereafter will return to previous dose of 7.5/325. PDMP reviewed Additional per resident documentation
--- NOTE | 2022-07-24 02:47 | Billing Data ---
Date of Service July 24, 2022 Coding Level of Care Code 76494 INT INP/OBS CARE
== END 2022-07-22 14:35 | disposition home or self-care (01) | DRG 446 ==
LOC: ED 19:18 → SUATTDRO 07-16 01:17 → 3E 07-16 01:17

== ENCOUNTER 2022-08-12 18:28 | Inpatient (IN) ==
[2022-08-12] MEDS ORDERED: SODIUM CHLORIDE 0.9% 1000ML 1,000 ML IV ONE (18:44)
[2022-08-12] MEDS ORDERED: LORazepam 2 MG/1 ML VIAL IV STA (18:44)
[2022-08-12] MEDS ORDERED: HYDROmorphone INJ 1 MG/ML SYRINGE IV STA ×2 (18:44→19:37)
--- NOTE | 2022-08-12 18:45 | Emergency Department Note ---
Impression & Plan Intractable epigastric abdominal pain, Acute dehydration, Lactic acidosis, Alcohol intoxication ED Provider Note Name: LIBERTAD MCMAHON Age: 52 Sex: F Arrives Via: Walk-In Informant: Patient, at bedside ED Provider: Edgar Cheng MD Chief Complaint: Epigastric pain Impression: As per impressions above Medical Decision Makin-year-old female with a complex history over the last year of epigastric abdominal pain. Patient did have gallbladder removed about a year ago and did have some issues with obstruction following this. Since then patient has had multiple hospitalizations for intractable epigastric pain. Per her and has been pain never really goes away but has gotten significantly worse the last 3 days. On examination patient is writhing around and rocking back and forth on the bed she is somewhat upset that I am asking certain questions. She does appear quite uncomfortable and really is not letting me do much of an examination of her abd omen. Note that she smelled somewhat of alcohol as well. Extensive laboratory work-up ordered and patient was given IV fluids and pain medications. On repeat evaluation patient states continued pain and thus another dose of pain medication given. Her heart rate is come down and she looks much more comfortable on repeat evaluations. Laboratory work-up does show an elevated lactate though I think this is likely secondary to the amount of pain she was in her tachycardia and a dehydrated state in addition to clearly having been drinking alcohol. I did discuss with her the fact that her alcohol level is quite elevated. She is quite aghast that I would insinuate that she had been drinking. She makes clear that she has not been drinking any alcohol and the only thing she is used was use of mouthwash but denies drinking it. Given the fact that she appears somewhat intoxicated, smells of alcohol and alcohol level is positive I believe that it is likely she has been drinking alcohol and just does not want to admit it this time. That said patient still is uncomfortable I think treating her pain and keeping her hydrated is clearly indicated. I called the hospitalist to bring her in for further management. Given she is looking much more improved her vital signs have improved and KUB is unremarkable I would hold off on doing a CT scan of the abdomen at this time given she is already had multiple previous CTs and is looking much better. Prior Medical Record and Triage/Nursing Notes reviewed by Me Extensive review of external records by me Differentials:Pancreatitis, biliary pathology, ischemic bowel, aortic pathology, volvulus/obstruction, esophagitis, gastric ulcer amongst other pathologies considered Vital Signs: reviewed and remarkable for tachycardia on arrival improved with fluids Interventions: Dilaudid 1 mg IV x2, Ativan 1 mg IV, normal saline bolus Labs:Reviewed and remarkable for elevated lactic acid mildly, elevated alcohol level Imagin view KUB as per my interpretation no obstruction appreciated [facility] Plan: Disposition:Hospitalization. Condition: Good History of Present Illness:52-year-old female arrives for evaluation of epigastric pain. Patient with about 1 year of intractable epigastric pain. Is resulted in multiple ER visits and hospitalizations over the last year. There was an episode of cholecystitis resulting in cholecystectomy back in October 2021. This was complicated by a small bowel obstruction following this requiring repeat surgery. Post cholecystectomy no real improvement in her pain and she has had multiple hospitalizations since then. Patient was hospitalized about 4 weeks ago for pain during which she had EUS no real clear findings. Since discharge at the beginning July she notes continued epigastric pain. Over the last 3 to 4 days severe worsening of epigastric pain. Radiates to her back and the rest of her abdomen. Associated with nausea. Associate with decreased appetite. States she is unable to get comfortable. Denies any falls, trauma, injuries. No fevers chills bloody stools, bleeding or other concerning signs or symptoms. No medications help with the pain. She does take Percocet regularly for her back pain without improvement in her abdominal pain. She does periodically take Zofran for her nausea. Past History:See Below Home Medications:See Below Allergies:See Below Vitals:Blood Pressure: 121/87, Pulse 98, RR 16, T 36.8C, O2 96% on RA Physical Exam: GENERAL: Patient is severely uncomfortable appearing and in moderate distress. Dry heaving, rocking back and forth on edge of bed. Patient smells of alcohol. EYES: No scleral icterus, unremarkable pupils. RESPIRATORY: No dyspnea. Clear to auscultation and equal bilaterally. No wheeze, no rhonchi. CARDIOVASCULAR: Mildly tachycardic.No murmurs, rubs, gallops appreciated. GASTROINTESTINAL: Guarding not willing to allow much of an abdominal exam though no distention or peritonitis appreciated on brief exam BACK: No midline tenderness, no CVA tenderness EXTREMITIES: Normal motion all extremities, no cyanosis, no edema. NEUROLOGIC: Alert and oriented, no focal neurologic deficit appreciated. SKIN: No rash, no jaundice, no diaphoresis. PSYCH: Agitated somewhat confrontational questioning my questions GCS: 15 ED Course: Times/Reassessments: Patient does appear more comfortable on repeat evaluations though is complaining of continued pain thus hospitalist consulted for further management Edgar Cheng MD Past Med/Surg History Medical History Cervical disc herniation (02/18/14) Cervical radiculopathy GOOD ROM PER PT Chronic low back pain Chronic neck pain Disc degeneration, lumbar Dysuria Electrolyte abnormality NEL (generalized anxiety disorder) Hematuria Hx of migraines Hydronephrosis, right Intractable abdominal pain Lab test negative for COVID-19 virus MDD (major depressive disorder) Migraine Mittelschmerz Osteoarthritis Peripheral neuropathy Urge and stress incontinence Urinary retention UTI (urinary tract infection) Surgical History H/O abdominal surgery (10/27/21) Laparoscopic Washout S/P Laparoscopic Cholecystectomy(Not Applicable) - Sukumar Wood DO H/O hand surgery repair of hand injury due to a dog bite H/O wrist surgery History of breast biopsy History of cystoscopy History of esophagogastroduodenoscopy (EGD) History of mandibular surgery History of robot-assisted laparoscopic hysterectomy Hx of abdominal surgery (10/25/21) p Diagnostic Laparoscopy with Pelvic Washings(Not Applicable) - Sukumar Moran, s Laparoscopic Cholecystectomy - Sukumar Wood DO Hx of cystoscopy (~08/15/20) TURBT with stent placement [facility] Hx of lumpectomy LEFT (BENIGN) S/P cervical spinal fusion C4-C5 & C5-C6. TOTAL OF 3 FUSIONS ([facility]). LIMITED RANGE TO LEFT. HAS BEEN INTUBATED SINCE. Cervical Arthroplasty C4-C5 02/18/14: MAC #3, ETT #7.0, Grade 1 View, Smooth intubation on 1st attempt S/P hardware removal CERVICAL S/P ureteral stent placement Family History Father Cardiac disorder Malignant neoplasm of colon Prostate cancer Colorectal cancer Aunt Breast cancer Denies family history of Ovarian cancer Social History Smoking Status: Never smoker Second Hand Exposure: No; Do You Dip or Chew Tobacco: No; Hx Alcohol Use: No Hx Substance Use: No Preferred Language: Luxembourgish Communication Ability: Effective Visual Impairment: No Limitations Visual Merchandising Assistant Required: No Beliefs That Will Affect Care: None marital status: Current Living Situation: Spouse and Family Current Living Situation Comment: at home How many Children do You have: 2 Feels Safe at Home: Yes Assistive Devices: None Allergies Allergies Allergy/AdvReac Type Severity Reaction Status Date / Time rizatriptan Allergy Severe Difficulty Verified 08/12/22 21:18 Breathing benzoin Allergy Intermediate USED TO Verified 08/12/22 21:18 PUT UNDER STERI STRIPS TO KEEP THEM ON -- BLISTERS tramadol AdvReac Intermediate N/V Verified 08/12/22 21:18 Home Meds Home Medications Medication Instructions Recorded Confirmed clonazepam 1 mg tablet 1 mg PO BID PRN Anxiety 02/10/18 08/12/22 acetaminophen 500 mg tablet 1,000 mg PO DIRECTED PRN Pain 09/19/19 08/12/22 (Tylenol Extra Strength) bupropion HCl 150 mg 24 hr tablet, 150 mg PO QAM 09/19/19 08/12/22 extended release (Wellbutrin XL) gabapentin 400 mg capsule 800 mg PO BID 06/26/20 08/12/22 sertraline 50 mg tablet 75 mg PO QAM 06/26/20 08/12/22 buspirone 10 mg tablet 20 mg PO BID 06/21/22 08/12/22 omeprazole 20 mg capsule,delayed 20 mg PO BID 07/15/22 08/12/22 release methylprednisolone 4 mg tablets in 4 mg PO .TAPER UD 08/12/22 08/12/22 a dose pack Previous Rx's Medication Instructions Recorded ergocalciferol (vitamin D2) 1,250 50,000 unit PO WK 2 months #7 caps 07/22/22 mcg (50,000 unit) capsule oxycodone-acetaminophen 10 mg-325 1 tab PO QID PRN pain #12 tabs 07/22/22 mg tablet Results & Data (ED) Vital Signs Vital Signs - 24 hr 08/12/22 18:31 08/12/22 19:32 Temperature 36.8 C Temperature Source Oral Pulse Rate 98 H 98 H Respiratory Rate 16 Blood Pressure 121/87 Blood Pressure Mean 98 Pulse Oximetry 96 Oxygen Delivery Method Room Air Sepsis Recent Fever Within 48 Hours No Sepsis New/Unexplained Change in Mental Status No Sepsis Action Taken by Nursing No Action Required Laboratory Data 08/12/22 19:04 08/12/22 19:04 Lab Results 08/12/22 08/12/22 08/12/22 Range/Units 19:04 19:04 19:04 WBC 6.89 (4.8-10.8) K/ul RBC 3.76 L (4.20-5.40) M/uL Hgb 12.5 (12.0-16.0) g/dl Hct 35.2 L (37.0-47.0) % MCV 93.6 (80.0-100.0) fL MCH 33.2 (25.0-34.0) pg MCHC 35.5 (32.0-36.0) g/dL RDW Std Deviation 44.8 (36.4-46.3) fL RDW Coeff of Angelique 13.1 (11.5-14.5) % Plt Count 375 (130-400) K/uL MPV 9.8 (9.4-12.4) fL Immature Gran % (Auto) 0.1 % Neut % (Auto) 44.3 % Lymph % (Auto) 41.5 % [place] % (Auto) 5.4 % Eos % (Auto) 6.5 % Baso % (Auto) 2.2 % Neut # (Auto) 3.05 (1.40-6.50) K/uL Lymph # (Auto) 2.86 (1.2-3.4) K/uL [place] # (Auto) 0.37 (0.11-0.59) K/uL Eos # (Auto) 0.45 (0-0.50) K/uL Baso # (Auto) 0.15 (0-0.2) K/uL Immature Gran # (Auto) 0.01 (0.01-0.20) K/uL VBG pH (7.36-7.41) VBG pCO2 (38-50) mmHg VBG pO2 mmHg VBG HCO3 mmol/L VBG O2 Saturation % VBG Base Excess mEq/L Sodium 142 (136-145) mmol/L Potassium 3.8 (3.5-5.1) mmol/L Chloride 109 H (98-107) mmol/L Carbon Dioxide 22 (21-32) mmol/L Anion Gap 11 (3-11) BUN 15 (6-23) mg/dl Creatinine 0.81 (0.6-1.2) mg/dl Est Cr Clr Drug Dosing 79.5 ml/min Est GFR ( Amer) 96.8 ml/min Est GFR (Non-Af Amer) 83.5 ml/min BUN/Creatinine Ratio 18.5 (10-20) Glucose 114 H (70-99(Fasting)) mg/dl Lactate 2.5 H* (0.4-2.0) mmol/L Calcium 9.1 (8.6-10.3) mg/dl Magnesium 2.2 (1.7-2.4) mg/dl Total Bilirubin 0.3 (0.2-1.0) mg/dl Direct Bilirubin 0.1 (0-0.2) mg/dl AST 19 (13-39) U/L ALT 17 (7-52) U/L Alkaline Phosphatase 111 H (34-104) U/L Troponin I High Sens 2.9 (0-14) pg/ml Total Protein 6.7 (6.0-8.3) gm/dl Albumin 4.4 (3.4-5.0) gm/dl Lipase 14 (11-82) U/L Urine Color Urine Appearance (Clear) Urine pH (4.5-7.5) Ur Specific [place] (1.000-1.030) Urine Protein (Negative) Urine Glucose (UA) (Negative) Urine Ketones (Negative) Urine Blood (Negative) Urine Nitrite (Negative) Urine Bilirubin (Negative) Urine Urobilinogen (Negative) Ur Leukocyte Esterase (Negative) Ethyl Alcohol mg/dL (<10.0) mg/dl 08/12/22 08/12/22 08/12/22 Range/Units 19:04 19:04 19:50 WBC (4.8-10.8) K/ul RBC (4.20-5.40) M/uL Hgb (12.0-16.0) g/dl Hct (37.0-47.0) % MCV (80.0-100.0) fL MCH (25.0-34.0) pg MCHC (32.0-36.0) g/dL RDW Std Deviation (36.4-46.3) fL RDW Coeff of Angelique (11.5-14.5) % Plt Count (130-400) K/uL MPV (9.4-12.4) fL Immature Gran % (Auto) % Neut % (Auto) % Lymph % (Auto) % [place] % (Auto) % Eos % (Auto) % Baso % (Auto) % Neut # (Auto) (1.40-6.50) K/uL Lymph # (Auto) (1.2-3.4) K/uL [place] # (Auto) (0.11-0.59) K/uL Eos # (Auto) (0-0.50) K/uL Baso # (Auto) (0-0.2) K/uL Immature Gran # (Auto) (0.01-0.20) K/uL VBG pH 7.49 H (7.36-7.41) VBG pCO2 33 L (38-50) mmHg VBG pO2 68 mmHg VBG HCO3 25 mmol/L VBG O2 Saturation 95.1 % VBG Base Excess 2.2 mEq/L Sodium (136-145) mmol/L Potassium (3.5-5.1) mmol/L Chloride (98-107) mmol/L Carbon Dioxide (21-32) mmol/L Anion Gap (3-11) BUN (6-23) mg/dl Creatinine (0.6-1.2) mg/dl Est Cr Clr Drug Dosing ml/min Est GFR ( Amer) ml/min Est GFR (Non-Af Amer) ml/min BUN/Creatinine Ratio (10-20) Glucose (70-99(Fasting)) mg/dl Lactate (0.4-2.0) mmol/L Calcium (8.6-10.3) mg/dl Magnesium (1.7-2.4) mg/dl Total Bilirubin (0.2-1.0) mg/dl Direct Bilirubin (0-0.2) mg/dl AST (13-39) U/L ALT (7-52) U/L Alkaline Phosphatase (34-104) U/L Troponin I High Sens (0-14) pg/ml Total Protein (6.0-8.3) gm/dl Albumin (3.4-5.0) gm/dl Lipase (11-82) U/L Urine Color Yellow Urine Appearance Clear (Clear) Urine pH 6.5 (4.5-7.5) Ur Specific [place] 1.005 (1.000-1.030) Urine Protein Negative (Negative) Urine Glucose (UA) Negative (Negative) Urine Ketones Negative (Negative) Urine Blood Negative (Negative) Urine Nitrite Negative (Negative) Urine Bilirubin Negative (Negative) Urine Urobilinogen Negative (Negative) Ur Leukocyte Esterase Negative (Negative) Ethyl Alcohol mg/dL 276.5 H (<10.0) mg/dl 08/12/22 Range/Units 21:07 WBC (4.8-10.8) K/ul RBC (4.20-5.40) M/uL Hgb (12.0-16.0) g/dl Hct (37.0-47.0) % MCV (80.0-100.0) fL MCH (25.0-34.0) pg MCHC (32.0-36.0) g/dL RDW Std Deviation (36.4-46.3) fL RDW Coeff of Angelique (11.5-14.5) % Plt Count (130-400) K/uL MPV (9.4-12.4) fL Immature Gran % (Auto) % Neut % (Auto) % Lymph % (Auto) % [place] % (Auto) % Eos % (Auto) % Baso % (Auto) % Neut # (Auto) (1.40-6.50) K/uL Lymph # (Auto) (1.2-3.4) K/uL [place] # (Auto) (0.11-0.59) K/uL Eos # (Auto) (0-0.50) K/uL Baso # (Auto) (0-0.2) K/uL Immature Gran # (Auto) (0.01-0.20) K/uL VBG pH (7.36-7.41) VBG pCO2 (38-50) mmHg VBG pO2 mmHg VBG HCO3 mmol/L VBG O2 Saturation % VBG Base Excess mEq/L Sodium (136-145) mmol/L Potassium (3.5-5.1) mmol/L Chloride (98-107) mmol/L Carbon Dioxide (21-32) mmol/L Anion Gap (3-11) BUN (6-23) mg/dl Creatinine (0.6-1.2) mg/dl Est Cr Clr Drug Dosing ml/min Est GFR ( Amer) ml/min Est GFR (Non-Af Amer) ml/min BUN/Creatinine Ratio (10-20) Glucose (70-99(Fasting)) mg/dl Lactate 1.4 (0.4-2.0) mmol/L Calcium (8.6-10.3) mg/dl Magnesium (1.7-2.4) mg/dl Total Bilirubin (0.2-1.0) mg/dl Direct Bilirubin (0-0.2) mg/dl AST (13-39) U/L ALT (7-52) U/L Alkaline Phosphatase (34-104) U/L Troponin I High Sens (0-14) pg/ml Total Protein (6.0-8.3) gm/dl Albumin (3.4-5.0) gm/dl Lipase (11-82) U/L Urine Color Urine Appearance (Clear) Urine pH (4.5-7.5) Ur Specific [place] (1.000-1.030) Urine Protein (Negative) Urine Glucose (UA) (Negative) Urine Ketones (Negative) Urine Blood (Negative) Urine Nitrite (Negative) Urine Bilirubin (Negative) Urine Urobilinogen (Negative) Ur Leukocyte Esterase (Negative) Ethyl Alcohol mg/dL (<10.0) mg/dl Administered Medications Gabapentin (Gabapentin 800 Mg Tab) 800 mg PO BID MARYLIN Stop: 09/11/22 23:37 Last Admin: 08/13/22 00:12 Dose: 800 mg Documented By: AMS Discontinued Medications Hydromorphone HCl (Hydromorphone Inj 1 Mg/Ml Syringe) 1 mg IV NOW STA Stop: 08/12/22 18:45 Last Admin: 08/12/22 19:10 Dose: 1 mg Documented By: ML Hydromorphone HCl (Hydromorphone Inj 1 Mg/Ml Syringe) 1 mg IV NOW STA Stop: 08/12/22 19:38 Last Admin: 08/12/22 19:48 Dose: 1 mg Documented By: ANDREA Sodium Chloride (Nss 1000ml) 1,000 mls @ 999 mls/hr IV .Q1H1M ONE Stop: 08/12/22 19:44 Last Infusion: 08/12/22 21:00 Dose: 0 mls/hr Documented By: Admin: 08/12/22 19:09 Dose: 999 mls/hr Documented By: PREMA Lorazepam (Lorazepam 2 Mg/1 Ml Vial) 1 mg IV NOW STA Stop: 08/12/22 18:45 Last Admin: 08/12/22 19:10 Dose: 1 mg Documented By: PREMA Oxycodone/Acetaminophen (Oxycodone/Acetaminophen 10-325 Tab) 1 tab PO NOW STA Stop: 08/12/22 21:43 Last Admin: 08/12/22 21:53 Dose: 1 tab Documented By: ANDREA Discharge Plan Visit Data Chief Complaint: Abdominal Pain Stated Complaint: POSSIBLE PANCREATITIS ED Provider: Edgar Cheng Discharge Problem: Intractable epigastric abdominal pain, Acute dehydration, Lactic acidosis, Alcohol intoxication Patient Disposition: Admitted As Inpatient Discharge Instructions Interventions: ED Discharge Assessment Last Done: 08/12/22 22:53
[2022-08-12 19:21] LABS: Base Excess VBG 2.2 mEq/L; HCO3 VBG 25 mmol/L; Oxygen Saturation VBG 95.1 %; PCO2 VBG 33 mmHg (38-50); PO2 VBG 68 mmHg; pH VBG 7.49 (7.36-7.41)
[2022-08-12 19:27] LABS: Basophils # (auto) 0.15 K/uL (0-0.2); Basophils % (auto) 2.2 %; Eosinophils # (auto) 0.45 K/uL (0-0.50); Eosinophils % (auto) 6.5 %; Hematocrit (blood only) 35.2 % (37.0-47.0); Hemoglobin 12.5 g/dl (12.0-16.0); Immature Granulocytes # (auto) 0.01 K/uL (0.01-0.20); Immature Granulocytes % (auto) 0.1 %; Lymphocytes # (auto) 2.86 K/uL (1.2-3.4); Lymphocytes % (auto) 41.5 %; Mean Corpuscular Hemoglobin 33.2 pg (25.0-34.0); Mean Corpuscular Hgb Conc 35.5 g/dL (32.0-36.0); Mean Corpuscular Volume 93.6 fL (80.0-100.0); Mean Platelet Volume 9.8 fL (9.4-12.4); Monocytes # (auto) 0.37 K/uL (0.11-0.59); Monocytes % (auto) 5.4 %; Neutrophils # (auto) 3.05 K/uL (1.40-6.50); Neutrophils % (auto) 44.3 %; Platelet Count 375 K/uL (130-400); RDW Coefficient of Variation 13.1 % (11.5-14.5); RDW Standard Deviation 44.8 fL (36.4-46.3); Red Blood Count 3.76 M/uL (4.20-5.40); White Blood Count 6.89 K/ul (4.8-10.8)
[2022-08-12 19:44] LABS: Albumin Level 4.4 gm/dl (3.4-5.0); BUN Creatinine Ratio 18.5 (10-20); Bilirubin Direct 0.1 mg/dl (0-0.2); Bilirubin,Total 0.3 mg/dl (0.2-1.0); Calcium 9.1 mg/dl (8.6-10.3); Creatinine Clr Calc Pharmacy 79.5 ml/min; Est GFR (African American) 96.8 ml/min; Est GFR (Non-African American) 83.5 ml/min; Magnesium 2.2 mg/dl (1.7-2.4); Potassium 3.8 mmol/L (3.5-5.1); Total Protein 6.7 gm/dl (6.0-8.3)
[2022-08-12 19:52] LABS: Troponin I High Sensitivity 2.9 pg/ml (0-14)
[2022-08-12 20:12] LABS: Appearance Urine Clear (Clear); Bilirubin Urine Negative (Negative); Blood Urine Negative (Negative); Color Urine Yellow; Glucose Urine UA Negative (Negative); Ketones Urine Negative (Negative); Leukocyte Esterase Urine Negative (Negative); Nitrite Urine Negative (Negative); Protein Urine Negative (Negative); Specific Gravity Urine 1.005 (1.000-1.030); Urobilinogen Urine Negative (Negative); pH Urine 6.5 (4.5-7.5)
--- NOTE | 2022-08-12 21:10 | History & Physical Report ---
Date of Service August 12, 2022 Assessment & Plan (1) Abdominal pain: Plan: 52 y/o F cholecystectomy, SBO, pancreatitis episodes x4, NEL, MDD, cervical radiculopathy s/p cervical fusion admitted for abdominal and epigastric pain exacerbation of unknown origin. Abdominal Pain: -New onset worsening wax/wane abdominal/epigastric pain. -Blood work unremarkable, lipase, troponin, LFTs normal or downtrending from las t visit. -KUB without any acute findings. -Hx of cholecystectomy and recurrent pancreatitis. -Complex GI history w/ ERCP earlier this month, only mildly dilated biliary tree. -Unclear origin of pain, possibly from biliary tree dilation, residual pain related to post-inflammatory changes of pancreas, motility issues, altered levels of pancreatic enzymes. -Consulted GI, will appreciate recs. -Started on IV Protonix 40mg BID. -Tylenol 650mg q6h, Toradol 15mg q8h PRN for pain, if not controlled can give patients Percocet. -Zofran 4mg IV q6h PRN for nausea. Depression/Anxiety: -continue home wellbutrin, buspirone, sertraline, clonazepam Cervical radiculopathy: -Continue gabapentin. F/E/N/GI: Low fat diet. DVT Prophylaxis: SCDs Code status: Full Dispo: Med/tele. (2) Cervical radiculopathy: (3) Chronic recurrent pancreatitis: (4) NEL (generalized anxiety disorder): (5) Nausea: (6) S/P cervical spinal fusion: (7) S/P laparoscopic cholecystectomy: History of Present Illness Chief Complaint: Abdominal pain Primary Care Provider: Dominga Connolly Bonnie is a 52 y/o F w/ PmHx cholecystectomy, SBO, pancreatitis episodes x4, NEL, MDD, cervical radiculopathy s/p cervical fusion presenting with abdominal and epigastric pain since Saturday. Patient states that she has been to the hospital 4 times over recent months and she is very concerned about what the underlyin cause of her abdominal/epigastric pain may be. The pain waxes and wanes and is usually at the epigastric region and radiates down to the LLQ. She denies this feeling like heart related chest pain. She states that Saturday she started to get worsening of her pain and by night she was at a bad spot for her pain again similar to previous episodes. She had decreased appetite and nausea as well. She has an appointment with GI at [place] in October but could not wait and needed to get checked out because of the recurrence of pain. She denies shortness of breath, dysuria. She has had diarrhea for the past 5 years around 4-5 times per day. She was also recently treated with Macrobid this past month for a UTI. Stools are watery for her and float/more oily in consistency. Of note patient is doing a low fat diet. In the ED CBC unremarkable, CMP showed downtrending of LFTs, troponin and lipase negative, and alcohol level of 276.5. No acute abnormalities seen on KUB, no air under diaphragm visualized. Allergies Allergy/AdvReac Type Severity Reaction Status Date / Time rizatriptan Allergy Severe Difficulty Verified 08/12/22 21:18 Breathing benzoin Allergy Intermediate USED TO Verified 08/12/22 21:18 PUT UNDER STERI STRIPS TO KEEP THEM ON -- BLISTERS tramadol AdvReac Intermediate N/V Verified 08/12/22 21:18 Home Medications Medication Instructions Recorded Confirmed Type clonazepam 1 mg tablet 1 mg PO BID PRN Anxiety 02/10/18 08/12/22 History acetaminophen 500 mg tablet 1,000 mg PO DIRECTED PRN Pain 09/19/19 08/12/22 History (Tylenol Extra Strength) bupropion HCl 150 mg 24 hr tablet, 150 mg PO QAM 09/19/19 08/12/22 History extended release (Wellbutrin XL) gabapentin 400 mg capsule 800 mg PO BID 06/26/20 08/12/22 History sertraline 50 mg tablet 75 mg PO QAM 06/26/20 08/12/22 History buspirone 10 mg tablet 20 mg PO BID 06/21/22 08/12/22 History omeprazole 20 mg capsule,delayed 20 mg PO BID 07/15/22 08/12/22 History release ergocalciferol (vitamin D2) 1,250 50,000 unit PO WK 2 months #7 caps 07/22/22 08/12/22 Rx mcg (50,000 unit) capsule oxycodone-acetaminophen 10 mg-325 1 tab PO QID PRN pain #12 tabs 07/22/22 08/12/22 Rx mg tablet methylprednisolone 4 mg tablets in 4 mg PO .TAPER UD 08/12/22 08/12/22 History a dose pack Past Med/Surg History Medical History Cervical disc herniation (02/18/14) Cervical radiculopathy GOOD ROM PER PT Chronic low back pain Chronic neck pain Disc degeneration, lumbar Dysuria Electrolyte abnormality NEL (generalized anxiety disorder) Hematuria Hx of migraines Hydronephrosis, right Intractable abdominal pain Lab test negative for COVID-19 virus MDD (major depressive disorder) Migraine Mittelschmerz Osteoarthritis Peripheral neuropathy Urge and stress incontinence Urinary retention UTI (urinary tract infection) Surgical History H/O abdominal surgery (10/27/21) Laparoscopic Washout S/P Laparoscopic Cholecystectomy(Not Applicable) - Sukumar Wood, H/O hand surgery repair of hand injury due to a dog bite H/O wrist surgery History of breast biopsy History of cystoscopy History of esophagogastroduodenoscopy (EGD) History of mandibular surgery History of robot-assisted laparoscopic hysterectomy Hx of abdominal surgery (10/25/21) p Diagnostic Laparoscopy with Pelvic Washings(Not Applicable) - Sukumar Wood, DO s Laparoscopic Cholecystectomy - Sukumar Wood, DO Hx of cystoscopy (~08/15/20) TURBT with stent placement [facility] Hx of lumpectomy LEFT (BENIGN) S/P cervical spinal fusion C4-C5 & C5-C6. TOTAL OF 3 FUSIONS ([facility]). LIMITED RANGE TO LEFT. HAS BEEN INTUBATED SINCE. Cervical Arthroplasty C4-C5 02/18/14: MAC #3, ETT #7.0, Grade 1 View, Smooth intubation on 1st attempt S/P hardware removal CERVICAL S/P ureteral stent placement Family History Father Cardiac disorder Malignant neoplasm of colon Prostate cancer Colorectal cancer Aunt Breast cancer Denies family history of Ovarian cancer Social History Smoking Status: Never smoker Second Hand Exposure: No; Do You Dip or Chew Tobacco: No; Tobacco Cessation Education Requested by Patient: No Hx Alcohol Use: No (Per pt but ethyl alcohol came back positive) Hx Substance Use: No Preferred Language: Macedonian Communication Ability: Effective Visual Impairment: No Limitations Otolaryngology Nurse Required: No Beliefs That Will Affect Care: None marital status: Current Living Situation: Spouse and Family Current Living Situation Comment: at home How many Children do You have: 2 Other Information That Helps Us Care for You: No Feels Safe at Home: Yes Safety Concerns: Feels Safe At This Time Assistive Devices: Contacts and Glasses Review of Systems Review of Systems: As per HPI. Physical Exam Constitutional: WD/WN, vitals as above Patient visibly in pain with legs curled and clutching abdomen. Eyes: PERRL, conjunctivae normal, anicteric sclerae Respiratory: normal respiratory effort, lungs clear to auscultation Cardiovascular: RRR, no murmur, no edema Gastrointestinal (Abdomen): BS+, non-distended, tender to palpation at the epigastric region and LLQ, soft. Psychiatric: AOx3, tearful at times when relaying her HPI. Results & Data Results & Data Vital Signs (Past 12 Hours) Vital Signs Temp Pulse Resp BP Pulse Ox O2 Del Method 08/12/22 18:31 36.8 C 98 H 16 121/87 96 Room Air Resident Activity Tracking Resident Involvement: Resident Care Provided Care Provided: Adult Hospital Medicine (1) Abdominal pain Abdominal location: epigastric Qualified Code(s): R10.13 - Epigastric pain
[2022-08-12] MEDS ORDERED: oxyCODONE/ACETAMINOPHEN 10-325 TAB PO STA (21:42)
[2022-08-12] MEDS ORDERED: ACETAMINOPHEN 325 MG TAB PO PRN (23:38)
[2022-08-13] MEDS: GABAPENTIN 800 MG TAB PO SCH ×3 (00:12→20:23)
[2022-08-13] MEDS: KETOROLAC TROMETHAMINE 15 MG/ML VIAL IV PRN ×2 (00:28→11:08)
[2022-08-13] MEDS: clonazePAM 1 MG TAB PO PRN (00:29)
--- NOTE | 2022-08-13 07:54 | XRay Report ---
KUB CLINICAL HISTORY: Vomiting. FINDINGS: 2 AP supine abdominal radiographs are compared to study dated 10/26/2021 and correlated with abdominal CT dated 07/16/2022. Cholecystectomy clips are seen in the right upper quadrant. There is no bowel obstruction. Moderate fecal retention is noted throughout the colon. There are no abnormal abd ominal calcifications. Phleboliths are seen in the pelvis. The skeletal structures are osteopenic and appear intact. There is mild lumbosacral spondylosis. The lung bases are clear as imaged. IMPRESSION: No acute abnormality is identified. Electronically signed by: Eliud Marcano M.D. 08/13/2022 7:52 AM
[2022-08-13] MEDS: oxyCODONE/ACETAMINOPHEN 10-325 TAB PO PRN ×4 (08:05→23:36)
[2022-08-13] MEDS: SERTRALINE HCL 50 MG TABLET PO SCH (08:06)
[2022-08-13] MEDS: PANTOprazole 40 MG in SYRINGE 0 ML IV SCH ×2 (08:06→20:23)
[2022-08-13] MEDS: buPROPion XL 150 MG TABCR PO SCH (08:08)
[2022-08-13] MEDS: busPIRone 5 MG TAB PO SCH ×2 (08:08→20:23)
[2022-08-13 08:23] LABS: Hemoglobin 10.4 g/dl (12.0-16.0); Mean Corpuscular Hemoglobin 33.1 pg (25.0-34.0); Mean Corpuscular Hgb Conc 33.5 g/dL (32.0-36.0); Mean Corpuscular Volume 98.7 fL (80.0-100.0); Mean Platelet Volume 9.7 fL (9.4-12.4); Platelet Count 266 K/uL (130-400); RDW Coefficient of Variation 13.4 % (11.5-14.5); RDW Standard Deviation 47.8 fL (36.4-46.3); Red Blood Count 3.14 M/uL (4.20-5.40); White Blood Count 5.37 K/ul (4.8-10.8)
[2022-08-13 08:24] LABS: Basophils # (auto) 0.08 K/uL (0-0.2); Basophils % (auto) 1.5 %; Eosinophils # (auto) 0.44 K/uL (0-0.50); Eosinophils % (auto) 8.2 %; Immature Granulocytes # (auto) 0.01 K/uL (0.01-0.20); Immature Granulocytes % (auto) 0.2 %; Lymphocytes # (auto) 2.89 K/uL (1.2-3.4); Lymphocytes % (auto) 53.8 %; Monocytes # (auto) 0.35 K/uL (0.11-0.59); Monocytes % (auto) 6.5 %; Neutrophils % (auto) 29.8 %
[2022-08-13 08:29] LABS: Alanine Aminotransferase 14 U/L (7-52); Albumin Level 3.6 gm/dl (3.4-5.0); Alkaline Phosphatase 79 U/L (34-104); Anion Gap 4 (3-11); Aspartate Aminotransferase 15 U/L (13-39); BUN Creatinine Ratio 30.8 (10-20); Bilirubin,Total 0.3 mg/dl (0.2-1.0); Blood Urea Nitrogen 20 mg/dl (6-23); C Reactive Protein < 0.50 mg/dl (0-0.5); Carbon Dioxide 29 mmol/L (21-32); Chloride 108 mmol/L (98-107); Creatinine Clr Calc Pharmacy 102.3 ml/min; Est GFR (African American) 118.3 ml/min; Est GFR (Non-African American) 102.1 ml/min; Globulin 1.8 gm/dl (2.5-4.0); Glucose 80 mg/dl (70-99(Fasting)); Potassium 3.9 mmol/L (3.5-5.1); Sodium 141 mmol/L (136-145); Total Protein 5.4 gm/dl (6.0-8.3)
--- NOTE | 2022-08-13 08:45 | Gastrointestinal Consultation ---
Attending note: Agree with note of ARGELIA Vergara Patient known to me from last admit with abdominal pain, ended up with ERCP and SPX. Pain gone until . Alcohol level on admit 256. She vehemently denies any Etoh intake other than mouthwash. I agree that at this point pain management is the only way to proceed. She has had full workup and sphincterotomy. Don't feel repeat workup is needed. If alcohol is the problem then chronic recurrent pancreatitis or alcoholic gastritis could be the diagnosis. She has an appointment in [place] in October Date of Consultation August 13, 2022 Assessment & Plan (1) Intractable epigastric abdominal pain: Epigastric abdominal pain: Patient presented to the emergency department with worsening epigastric abdominal pain. Admission labs unremarkable to include lipase and LFTs. Suspect patient symptoms are likely due to chronic pancreatitis. Patient does have a complex GI history with recurrent pancreatitis EGD/ERCP during admission 07/2022 with only mild dated dilated biliary tree. She likely needs EUS which can be completed as outpatient. Recommend pain management consult. Recommend comfort measures and discharge when appropriate. Case reviewed with Dr. Treadwell. Please refer to supervising physician addendum for further recommendations. I have spent 45 minutes of discrete time performing the activities of this visit which include but are not limited to review of the medical record, obtaining a history, physical exam, and entering information in the electronic record. (2) Chronic recurrent pancreatitis: History of Present Illness Attending Physician: Mariel Sanchez MD History of Present Illness The patient is a 52-year-old female with past medical history to include cholecystectomy, SBO, pancreatitis episodes x4, NEL, MDD, cervical radiculopathy s/p cervical fusion who presented to the emergency department 08/12/2022 due to epigastric pain, nausea, vomiting. She was subsequently admitted due to findings of acute pancreatitis with intractable epigastric pain. The patient reports that her pain began on , 08/09/2022 beginning with epigastric abdominal pain, nausea, vomiting. Symptoms progressed in severity and intensity of pain prompting her to admit to the emergency department. Denies fever, chills, night sweats. Reports epigastric abdominal pain rating 7- 8 out of 10 scale. She reports that current pain regimen consisting of Percocet every 6 hours is not sufficient to control her pain needs. She has same dose at home for back pain that has been unsuccessful. She reports only thing that has been helpful for her pain with her past episodes is Dilaudid. She does report nausea this morning but denies vomiting. Breakfast tray is partially eaten in front of her. Reports that she had some diarrhea prior to coming into the hospital but no bowel movement so far this morning. She typically has bowel movement daily. She does have upcoming appointment with Mery AYON 10/2022, Jackie Holcomb. She a is adamant in her denial of alcohol intake despite elevated alcohol level on admission. Lifetime non-smoker. Denies any alcohol intake. Denies recreational drug use i ncluding marijuana. She is with 2 adult daughters. 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 Allergies Allergy/AdvReac Type Severity Reaction Status Date / Time rizatriptan Allergy Severe Difficulty Verified 08/12/22 21:18 Breathing benzoin Allergy Intermediate USED TO Verified 08/12/22 21:18 PUT UNDER STERI STRIPS TO KEEP THEM ON -- BLISTERS tramadol AdvReac Intermediate N/V Verified 08/12/22 21:18 Home Medications Medication Instructions Recorded Confirmed Type clonazepam 1 mg tablet 1 mg PO BID PRN Anxiety 02/10/18 08/12/22 History acetaminophen 500 mg tablet 1,000 mg PO DIRECTED PRN Pain 09/19/19 08/12/22 History (Tylenol Extra Strength) bupropion HCl 150 mg 24 hr tablet, 150 mg PO QAM 09/19/19 08/12/22 History extended release (Wellbutrin XL) gabapentin 400 mg capsule 800 mg PO BID 06/26/20 08/12/22 History sertraline 50 mg tablet 75 mg PO QAM 06/26/20 08/12/22 History buspirone 10 mg tablet 20 mg PO BID 06/21/22 08/12/22 History omeprazole 20 mg capsule,delayed 20 mg PO BID 07/15/22 08/12/22 History release ergocalciferol (vitamin D2) 1,250 50,000 unit PO WK 2 months #7 caps 07/22/22 08/12/22 Rx mcg (50,000 unit) capsule oxycodone-acetaminophen 10 mg-325 1 tab PO QID PRN pain #12 tabs 07/22/22 08/12/22 Rx mg tablet methylprednisolone 4 mg tablets in 4 mg PO .TAPER UD 08/12/22 08/12/22 History a dose pack Patient History Medical History Cervical disc herniation (02/18/14) Cervical radiculopathy GOOD ROM PER PT Chronic low back pain Chronic neck pain Disc degeneration, lumbar Dysuria Electrolyte abnormality NEL (generalized anxiety disorder) Hematuria Hx of migraines Hydronephrosis, right Intractable abdominal pain Lab test negative for COVID-19 virus MDD (major depressive disorder) Migraine [place] Osteoarthritis Peripheral neuropathy Urge and stress incontinence Urinary retention UTI (urinary tract infection) Surgical History H/O abdominal surgery (10/27/21) Laparoscopic Washout S/P Laparoscopic Cholecystectomy(Not Applicable) - Sukumar Wood, H/O hand surgery repair of hand injury due to a dog bite H/O wrist surgery History of breast biopsy History of cystoscopy History of esophagogastroduodenoscopy (EGD) History of mandibular surgery History of robot-assisted laparoscopic hysterectomy Hx of abdominal surgery (10/25/21) p Diagnostic Laparoscopy with Pelvic Washings(Not Applicable) - Sukumar Wood, DO s Laparoscopic Cholecystectomy - Sukumar Wood, DO Hx of cystoscopy (~08/15/20) TURBT with stent placement [facility] Hx of lumpectomy LEFT (BENIGN) S/P cervical spinal fusion C4-C5 & C5-C6. TOTAL OF 3 FUSIONS ([facility]). LIMITED RANGE TO LEFT. HAS BEEN INTUBATED SINCE. Cervical Arthroplasty C4-C5 02/18/14: MAC #3, ETT #7.0, Grade 1 View, Smooth intubation on 1st attempt S/P hardware removal CERVICAL S/P ureteral stent placement Family History Father Cardiac disorder Malignant neoplasm of colon Prostate cancer Colorectal cancer Aunt Breast cancer Denies family history of Ovarian cancer Social History Smoking Status: Never smoker Second Hand Exposure: No; Do You Dip or Chew Tobacco: No; Tobacco Cessation Education Requested by Patient: No Hx Alcohol Use: No (Per pt but ethyl alcohol came back positive) Hx Substance Use: No Preferred Language: Czech Communication Ability: Effective Visual Impairment: No 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: No Beliefs That Will Affect Care: None marital status: Current Living Situation: Spouse and Family Current Living Situation Comment: at home How many Children do You have: 2 Other Information That Helps Us Care for You: No Feels Safe at Home: Yes Safety Concerns: Feels Safe At This Time Assistive Devices: Contacts and Glasses Review of Systems Review of Systems: All systems reviewed & are unremarkable except as noted in Subjective Gastrointestinal: + abdominal pain and + nausea Physical Exam Constitutional: WD/WN, vitals as above Eyes: PERRL, conjunctivae normal, anicteric sclerae Respiratory: normal respiratory effort, lungs clear to auscultation Cardiovascular: RRR, no murmur, no edema Gastrointestinal (Abdomen): Inspection/Auscultation: abdomen normal to inspection and normal bowel sounds Percussion/Palpation: + abdomen tender, abdomen soft and normal to percussion Psychiatric: A+Ox3, euthymic affect Results & Data Vital Signs (Past 12 Hours) Vital Signs Temp Pulse Pulse Pulse Resp BP BP 08/13/22 06:27 36.7 C 75 18 118/65 08/13/22 03:07 36.4 C L 79 18 108/67 08/13/22 00:00 36.4 C L 92 H 16 130/73 08/12/22 23:34 87 08/12/22 23:38 36.4 C L 92 H 16 130/73 08/12/22 22:53 89 18 124/69 08/12/22 22:01 84 16 116/64 Pulse Ox O2 Del Method 08/13/22 06:27 95 Room Air 08/13/22 03:07 96 Room Air 08/13/22 00:00 97 Room Air 08/12/22 23:34 08/12/22 23:38 97 Room Air 08/12/22 22:53 98 Room Air 08/12/22 22:01 100 Room Air Laboratory Results Laboratory Results - last 24 hr 08/12/22 08/12/22 08/12/22 19:04 19:04 19:04 WBC 6.89 RBC 3.76 L Hgb 12.5 Hct 35.2 L MCV 93.6 MCH 33.2 MCHC 35.5 RDW Std Deviation 44.8 RDW Coeff of Angelique 13.1 Plt Count 375 MPV 9.8 Immature Gran % (Auto) 0.1 Neut % (Auto) 44.3 Lymph % (Auto) 41.5 [place] % (Auto) 5.4 Eos % (Auto) 6.5 Baso % (Auto) 2.2 Neut # (Auto) 3.05 Lymph # (Auto) 2.86 [place] # (Auto) 0.37 Eos # (Auto) 0.45 Baso # (Auto) 0.15 Immature Gran # (Auto) 0.01 ESR VBG pH VBG pCO2 VBG pO2 VBG HCO3 VBG O2 Saturation VBG Base Excess Sodium 142 Potassium 3.8 Chloride 109 H Carbon Dioxide 22 Anion Gap 11 BUN 15 Creatinine 0.81 Est Cr Clr Drug Dosing 79.5 Est GFR ( Amer) 96.8 Est GFR (Non-Af Amer) 83.5 BUN/Creatinine Ratio 18.5 Glucose 114 H Lactate 2.5 H* Calcium 9.1 Magnesium 2.2 Total Bilirubin 0.3 Direct Bilirubin 0.1 AST 19 ALT 17 Alkaline Phosphatase 111 H Troponin I High Sens 2.9 C-Reactive Protein Total Protein 6.7 Albumin 4.4 Globulin Albumin/Globulin Ratio Lipase 14 Urine Color Urine Appearance Urine pH Ur Specific [place] Urine Protein Urine Glucose (UA) Urine Ketones Urine Blood Urine Nitrite Urine Bilirubin Urine Urobilinogen Ur Leukocyte Esterase Ethyl Alcohol mg/dL SARS-CoV-2, RNA, NAAT 08/12/22 08/12/22 08/12/22 19:04 19:04 19:50 WBC RBC Hgb Hct MCV MCH MCHC RDW Std Deviation RDW Coeff of Angelique Plt Count MPV Immature Gran % (Auto) Neut % (Auto) Lymph % (Auto) [place] % (Auto) Eos % (Auto) Baso % (Auto) Neut # (Auto) Lymph # (Auto) [place] # (Auto) Eos # (Auto) Baso # (Auto) Immature Gran # (Auto) ESR VBG pH 7.49 H VBG pCO2 33 L VBG pO2 68 VBG HCO3 25 VBG O2 Saturation 95.1 VBG Base Excess 2.2 Sodium Potassium Chloride Carbon Dioxide Anion Gap BUN Creatinine Est Cr Clr Drug Dosing Est GFR ( Amer) Est GFR (Non-Af Amer) BUN/Creatinine Ratio Glucose Lactate Calcium Magnesium Total Bilirubin Direct Bilirubin AST ALT Alkaline Phosphatase Troponin I High Sens C-Reactive Protein Total Protein Albumin Globulin Albumin/Globulin Ratio Lipase Urine Color Yellow Urine Appearance Clear Urine pH 6.5 Ur Specific [place] 1.005 Urine Protein Negative Urine Glucose (UA) Negative Urine Ketones Negative Urine Blood Negative Urine Nitrite Negative Urine Bilirubin Negative Urine Urobilinogen Negative Ur Leukocyte Esterase Negative Ethyl Alcohol mg/dL 276.5 H SARS-CoV-2, RNA, NAAT 08/12/22 08/12/22 08/13/22 21:07 21:55 07:28 WBC 5.37 RBC 3.14 L Hgb 10.4 L Hct 31.0 L MCV 98.7 D MCH 33.1 MCHC 33.5 RDW Std Deviation 47.8 H RDW Coeff of Angelique 13.4 Plt Count 266 MPV 9.7 Immature Gran % (Auto) 0.2 Neut % (Auto) 29.8 Lymph % (Auto) 53.8 [place] % (Auto) 6.5 Eos % (Auto) 8.2 Baso % (Auto) 1.5 Neut # (Auto) 1.60 Lymph # (Auto) 2.89 [place] # (Auto) 0.35 Eos # (Auto) 0.44 Baso # (Auto) 0.08 Immature Gran # (Auto) 0.01 ESR VBG pH VBG pCO2 VBG pO2 VBG HCO3 VBG O2 Saturation VBG Base Excess Sodium Potassium Chloride Carbon Dioxide Anion Gap BUN Creatinine Est Cr Clr Drug Dosing Est GFR ( Amer) Est GFR (Non-Af Amer) BUN/Creatinine Ratio Glucose Lactate 1.4 Calcium Magnesium Total Bilirubin Direct Bilirubin AST ALT Alkaline Phosphatase Troponin I High Sens C-Reactive Protein Total Protein Albumin Globulin Albumin/Globulin Ratio Lipase Urine Color Urine Appearance Urine pH Ur Specific [place] Urine Protein Urine Glucose (UA) Urine Ketones Urine Blood Urine Nitrite Urine Bilirubin Urine Urobilinogen Ur Leukocyte Esterase Ethyl Alcohol mg/dL SARS-CoV-2, RNA, NAAT NEGATIVE 08/13/22 08/13/22 07:28 07:28 WBC RBC Hgb Hct MCV MCH MCHC RDW Std Deviation RDW Coeff of Angelique Plt Count MPV Immature Gran % (Auto) Neut % (Auto) Lymph % (Auto) [place] % (Auto) Eos % (Auto) Baso % (Auto) Neut # (Auto) Lymph # (Auto) [place] # (Auto) Eos # (Auto) Baso # (Auto) Immature Gran # (Auto) ESR < 1 VBG pH VBG pCO2 VBG pO2 VBG HCO3 VBG O2 Saturation VBG Base Excess Sodium 141 Potassium 3.9 Chloride 108 H Carbon Dioxide 29 Anion Gap 4 BUN 20 Creatinine 0.65 Est Cr Clr Drug Dosing 102.3 Est GFR ( Amer) 118.3 Est GFR (Non-Af Amer) 102.1 BUN/Creatinine Ratio 30.8 H Glucose 80 Lactate Calcium 8.0 L Magnesium Total Bilirubin 0.3 Direct Bilirubin AST 15 ALT 14 Alkaline Phosphatase 79 Troponin I High Sens C-Reactive Protein < 0.50 Total Protein 5.4 L Albumin 3.6 Globulin 1.8 L Albumin/Globulin Ratio 2.0 Lipase Urine Color Urine Appearance Urine pH Ur Specific [place] Urine Protein Urine Glucose (UA) Urine Ketones Urine Blood Urine Nitrite Urine Bilirubin Urine Urobilinogen Ur Leukocyte Esterase Ethyl Alcohol mg/dL SARS-CoV-2, RNA, NAAT Diagnostic Findings KUB X-Ray 08/12/22 19:37 KUB CLINICAL HISTORY: Vomiting. FINDINGS: 2 AP supine abdominal radiographs are compared to study dated 10/26/2021 and correlated with abdominal CT dated 07/16/2022. Cholecystectomy clips are seen in the right upper quadrant. There is no bowel obstruction. Moderate fecal retention is noted throughout the colon. There are no abnormal abdominal calcifications. Phleboliths are seen in the pelvis. The skeletal structures are osteopenic and appear intact. There is mild lumbosacral spondylosis. The lung bases are clear as imaged. IMPRESSION: No acute abnormality is identified. Electronically signed by: Eliud Marcano M.D. 08/13/2022 7:52 AM
--- NOTE | 2022-08-13 10:40 | Medical Student Progress Note ---
Date of Service August 13, 2022 Assessment & Plan (1) Intractable epigastric abdominal pain: Plan: Summary: Patient is a 52-year-old woman has a complex medical history involving ongoing epigastric abdominal pain over the past year. She had her gallbladder removed a year ago and experienced some obstruction issues afterward. She has been hospitalized multiple times due to severe, persistent pain. Recently, her pain has worsened, and she is visibly uncomfortable. There is an unclear origin of her pain, the differential diagnoses include pancreatitis, biliary pathology, ischemic bowel, volvulus/obstruction, and gastric ulcer. 1. Abdominal Pain - Acute onset, severe & worsening intermittent epigastric pain - Initiated IV Protonix 40mg BID, Tylenol 650mg q6h, Toradol 15mg q8h PRN for pain, if not controlled give patient Percocet. Zofran 4mg IV q6h PRN for nausea. - GI consulted, advised no further workup and a pain management consult, patient to follow up in [place] in October - Pain management consult ordered 2. Depression/Anxiety - Continue home bupropion 150 mg PO QAM, buspirone 20 mg PO BID, sertraline 75 mg PO QAM, clonazepam 1 mg PO BID PRN 3. Cervical radiculopathy -Continue home gabapentin 400 mg PO BID Admission and Anticipated Discharge Date Admission Date: August 12, 2022 Supervising Attestation Medical Student Supervision Note: I was personally present during medical student patient encounter and independently interviewed and examined the patient and verified the delarosa history and physical, reviewed labs and image studies, discussed the case with Nabila Rivera and agree with the findings and care plan. 50 y/o F here for epigastric abdominal pain. s/p cholecystomy and during last admission she had ERCP with sphincterotomy as well. This admission work up negative except positive alcohol level of 276. Intractable Epigastric pain With tenderness in epigastric region - IV Protonix 40mg BID, - Add IV dilaudid. Percocet 10mgs changed to q4hrs - Zofran 4mg IV q6h PRN for nausea. - GI consulted, advised no further workup and a pain management consult, patient to follow up in [place] in October Positive alcohol level - level of 276 equivalent to 7to 9 drinks of alcohol with one drink being 1 ounce of 100% (hard proof) alcohol. - Denies alcoholic beverage use. Reports it could be mouth wash use. Mouth wash contains 10% alcohol which is higher than beer/wine. - continue to open discussion to support help seeking for possibility of alcohol use disorder. Depression/Anxiety - Continue home bupropion 150 mg PO QAM, buspirone 20 mg PO BID, sertraline 75 mg PO QAM, clonazepam 1 mg PO BID PRN Cervical radiculopathy -Home prn 5mgs precocet dose and gabapentin 400 mg PO BID Xander Nicoel, a 52-year-old woman with a history of cholecystectomy, small bowel obstruction, and 4 episodes of pancreatitis, presented to the ED on 08/12/22 with worsening abdominal and epigastric pain since 08/08/22. She had decreased appetite and nausea, and had been to the hospital four times in recent months due to the pain. She denied heart-related chest pain, shortness of breath, and dysuria, but had diarrhea for the past 5 years, around 4-5 times per day, with watery stools that float or are oily in consistency. She is currently on a low- fat diet and was recently treated with Macrobid for a UTI. 08/13/2022: The patient continues to have pain in her epigastric abdomen as of today. When she was assessed this morning, she was walking around the room about to shower. She has been prescribed Percocet, which she reports is effective for pain control for three hours. 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 Review of Systems Review of Systems: All systems reviewed & are unremarkable except as noted in Subjective Physical Exam Constitutional: WD/WN, vitals as above + thin and cooperative; no acute distress Eyes: PERRL, conjunctivae normal, anicteric sclerae Neck: trachea midline, no thyromegaly Respiratory: normal respiratory effort, lungs clear to auscultation Cardiovascular: RRR, no murmur, no edema Skin: no rashes, warm and dry Psychiatric: A+Ox3, euthymic affect Results & Data Vital Signs (Past 12 Hours) Vital Signs Temp Pulse Pulse Pulse Resp BP BP 08/13/22 06:27 36.7 C 75 18 118/65 08/13/22 03:07 36.4 C L 79 18 108/67 08/13/22 00:00 36.4 C L 92 H 16 130/73 08/12/22 23:34 87 08/12/22 23:38 36.4 C L 92 H 16 130/73 08/12/22 22:53 89 18 124/69 08/12/22 22:01 84 16 116/64 Pulse Ox O2 Del Method 08/13/22 06:27 95 Room Air 08/13/22 03:07 96 Room Air 08/13/22 00:00 97 Room Air 08/12/22 23:34 08/12/22 23:38 97 Room Air 08/12/22 22:53 98 Room Air 08/12/22 22:01 100 Room Air Laboratory Results Laboratory Results WBC 5.37 K/ul (4.8-10.8) 08/13/22 07:28 RBC 3.14 M/uL (4.20-5.40) L 08/13/22 07:28 Hgb 10.4 g/dl (12.0-16.0) L 08/13/22 07:28 Hct 31.0 % (37.0-47.0) L 08/13/22 07:28 MCV 98.7 fL (80.0-100.0) D 08/13/22 07:28 MCH 33.1 pg (25.0-34.0) 08/13/22 07:28 MCHC 33.5 g/dL (32.0-36.0) 08/13/22 07:28 RDW Std Deviation 47.8 fL (36.4-46.3) H 08/13/22 07:28 RDW Coeff of Angelique 13.4 % (11.5-14.5) 08/13/22 07:28 Plt Count 266 K/uL (130-400) 08/13/22 07:28 MPV 9.7 fL (9.4-12.4) 08/13/22 07:28 Immature Gran % (Auto) 0.2 % 08/13/22 07:28 Neut % (Auto) 29.8 % 08/13/22 07:28 Lymph % (Auto) 53.8 % 08/13/22 07:28 [place] % (Auto) 6.5 % 08/13/22 07:28 Eos % (Auto) 8.2 % 08/13/22 07:28 Baso % (Auto) 1.5 % 08/13/22 07:28 Neut # (Auto) 1.60 K/uL (1.40-6.50) 08/13/22 07: Lymph # (Auto) 2.89 K/uL (1.2-3.4) 08/13/22 07:28 [place] # (Auto) 0.35 K/uL (0.11-0.59) 08/13/22 07: Eos # (Auto) 0.44 K/uL (0-0.50) 08/13/22 07:28 Baso # (Auto) 0.08 K/uL (0-0.2) 08/13/22 07: Immature Gran # (Auto) 0.01 K/uL (0.01-0.20) 08/13/22 07: ESR < 1 mm/hr (0-30) 08/13/22 07:28 VBG pH 7.49 (7.36-7.41) H 08/12/22 19:04 VBG pCO2 33 mmHg (38-50) L 08/12/22 19:04 VBG pO2 68 mmHg 08/12/22 19:04 VBG HCO3 25 mmol/L 08/12/22 19:04 VBG O2 Saturation 95.1 % 08/12/22 19:04 VBG Base Excess 2.2 mEq/L 08/12/22 19:04 Sodium 141 mmol/L (136-145) 08/13/22 07:28 Potassium 3.9 mmol/L (3.5-5.1) 08/13/22 07:28 Chloride 108 mmol/L (98-107) H 08/13/22 07:28 Carbon Dioxide 29 mmol/L (21-32) 08/13/22 07:28 Anion Gap 4 (3-11) 08/13/22 07:28 BUN 20 mg/dl (6-23) 08/13/22 07:28 Creatinine 0.65 mg/dl (0.6-1.2) 08/13/22 07:28 Est Cr Clr Drug Dosing 102.3 ml/min 08/13/22 07:28 Est GFR ( Amer) 118.3 ml/min 08/13/22 07:28 Est GFR (Non-Af Amer) 102.1 ml/min 08/13/22 07:28 BUN/Creatinine Ratio 30.8 (10-20) H 08/13/22 07:28 Glucose 80 mg/dl (70-99(Fasting)) 08/13/22 07:28 Lactate 1.4 mmol/L (0.4-2.0) 08/12/22 21:07 Calcium 8.0 mg/dl (8.6-10.3) L 08/13/22 07:28 Magnesium 2.2 mg/dl (1.7-2.4) 08/12/22 19:04 Total Bilirubin 0.3 mg/dl (0.2-1.0) 08/13/22 07:28 Direct Bilirubin 0.1 mg/dl (0-0.2) 08/12/22 19:04 AST 15 U/L (13-39) 08/13/22 07:28 ALT 14 U/L (7-52) 08/13/22 07:28 Alkaline Phosphatase 79 U/L (34-104) 08/13/22 07:28 Troponin I High Sens 2.9 pg/ml (0-14) 08/12/22 19:04 C-Reactive Protein < 0.50 mg/dl (0-0.5) 08/13/22 07:28 Total Protein 5.4 gm/dl (6.0-8.3) L 08/13/22 07:28 Albumin 3.6 gm/dl (3.4-5.0) 08/13/22 07:28 Globulin 1.8 gm/dl (2.5-4.0) L 08/13/22 07:28 Albumin/Globulin Ratio 2.0 (0.9-2) 08/13/22 07:28 Lipase 14 U/L (11-82) 08/12/22 19:04 Urine Color Yellow 08/12/22 19:50 Urine Appearance Clear (Clear) 08/12/22 19:50 Urine pH 6.5 (4.5-7.5) 08/12/22 19:50 Ur Specific [place] 1.005 (1.000-1.030) 08/12/22 19:50 Urine Protein Negative (Negative) 08/12/22 19:50 Urine Glucose (UA) Negative (Negative) 08/12/22 19:50 Urine Ketones Negative (Negative) 08/12/22 19:50 Urine Blood Negative (Negative) 08/12/22 19:50 Urine Nitrite Negative (Negative) 08/12/22 19:50 Urine Bilirubin Negative (Negative) 08/12/22 19:50 Urine Urobilinogen Negative (Negative) 08/12/22 19:50 Ur Leukocyte Esterase Negative (Negative) 08/12/22 19:50 Ethyl Alcohol mg/dL 276.5 mg/dl (<10.0) H 08/12/22 19:04 SARS-CoV-2, RNA, NAAT NEGATIVE (NEGATIVE) 08/12/22 21:55 Impressions KUB X-Ray 08/12/22 19:37 KUB CLINICAL HISTORY: Vomiting. FINDINGS: 2 AP supine abdominal radiographs are compared to study dated 10/26/2021 and correlated with abdominal CT dated 07/16/2022. Cholecystectomy clips are seen in the right upper quadrant. There is no bowel obstruction. Moderate fecal retention is noted throughout the colon. There are no abnormal abdominal calcifications. Phleboliths are seen in the pelvis. The skeletal structures are osteopenic and appear intact. There is mild lumbosacral spondylosis. The lung bases are clear as imaged. IMPRESSION: No acute abnormality is identified. Electronically signed by: Eliud Marcano M.D. 08/13/2022 7:52 AM Medications Administered Bupropion HCl (Bupropion Xl 150 Mg Tabcr) 150 mg PO QAM [facility] Stop: 09/12/22 08:59 Last Admin: 08/13/22 08:08 Dose: 150 mg Documented By: AYESHA Buspirone HCl (Buspirone 5 Mg Tab) 20 mg PO BID [facility] Stop: 09/12/22 08:59 Last Admin: 08/13/22 08:08 Dose: 20 mg Documented By: AYESHA Clonazepam (Clonazepam 1 Mg Tab) 1 mg PO BID PRN PRN Reason: Anxiety Stop: 09/11/22 23:37 Last Admin: 08/13/22 00:29 Dose: 1 mg Documented By: LUIS Gabapentin (Gabapentin 800 Mg Tab) 800 mg PO BID [facility] Stop: 09/11/22 23:37 Last Admin: 08/13/22 08:06 Dose: 800 mg Documented By: Admin: 08/13/22 00:12 Dose: 800 mg Documented By: LUIS Pantoprazole Sodium 40 mg/ (Syringe) 10 mls @ 5 mls/min IV BID [facility] Stop: 09/12/22 08:59 Last Admin: 08/13/22 08:06 Dose: 5 mls/min Documented By: AYESHA Ketorolac Tromethamine (Ketorolac Tromethamine 15 Mg/Ml Vial) 15 mg IV Q8H PRN PRN Reason: Pain Stop: 08/17/22 23:37 Last Admin: 08/13/22 11:08 Dose: 15 mg Documented By: Admin: 08/13/22 00:28 Dose: 15 mg Documented By: LUIS Oxycodone/Acetaminophen (Oxycodone/Acetaminophen 10-325 Tab) 1 tab PO QID PRN PRN Reason: pain Stop: 08/26/22 23:37 Last Admin: 08/13/22 08:05 Dose: 1 tab Documented By: AYESHA Sertraline HCl (Sertraline Hcl 50 Mg Tablet) 75 mg PO QAM [facility] Stop: 09/12/22 08:59 Last Admin: 08/13/22 08:06 Dose: 75 mg Documented By: AYESHA
[2022-08-13] MEDS: HYDROmorphone INJ 0.5 MG/0.5 ML SYR IV PRN (17:43)
[2022-08-14] MEDS: HYDROmorphone INJ 0.5 MG/0.5 ML SYR IV PRN ×5 (01:08→22:04)
[2022-08-14] MEDS: oxyCODONE/ACETAMINOPHEN 10-325 TAB PO PRN ×4 (05:59→20:22)
[2022-08-14 07:20] LABS: BUN Creatinine Ratio 18.2 (10-20); Calcium 8.8 mg/dl (8.6-10.3); Creatinine Clr Calc Pharmacy 100.7 ml/min; Est GFR (African American) 117.7 ml/min; Est GFR (Non-African American) 101.6 ml/min; Potassium 4.4 mmol/L (3.5-5.1)
--- NOTE | 2022-08-14 08:29 | Gastroenterology Progress Note ---
Date of Service August 14, 2022 Assessment & Plan (1) Intractable epigastric abdominal pain: Plan: Epigastric abdominal pain: Patient continues to experience epigastric abdominal pain but this likely due to chronic pancreatitis. She underwent upper endoscopy, endoscopic ultrasound, and ERCP 07/19/2022. Upper endoscopy notable for diffuse gastritis, endoscopic ultrasound notable for modest dilation of the bile duct to 9 mm with atrophy of the pancreas no evidence of mass or cyst. ERCP performed with biliary sphincterotomy, patient was found to have mild papillary stenosis. Upper EUS findings are consistent with chronic pancreatitis. Pain management was consulted and will likely see patient today. Would recommend continuation of supportive care measures at this time. Patient has follow[place] [facility] [place], will also arrange for hospital discharge follow-up locally with GI. Case reviewed with Dr. Treadwell. Please refer to supervising physician addendum for further recommendations. I have spent 20 minutes of discrete time performing the activities of this visit which include but are not limited to review of the medical record, obtaining a history, physical exam, and entering information in the electronic record. (2) Chronic recurrent pancreatitis: Admission and Anticipated Discharge Date Admission Date: August 12, 2022 Supervising Physician Co-Signing Physician Notes I have discussed case with ARGELIA Vergara and agree with her assessment and plan. As mentioned before she has had full work up and currently is in the realm of pain management. Georgina has discussed with her seeing her in the outpatient arena to further pursue her pain as is needed. There is nothing further for us to do in this case now. I have spent 15 minutes reviewing the records, discussing with ARGELIA Vergara and formulating the plan as well as entering in the medical records. Subjective The patient is awake alert and oriented this morning. She is walking out of the restroom back to her bed when I entered her room this morning. She is holding her abdomen. She continues to complain of abdominal pain although she does report that change in pain medication regimen has been helpful. She reports she is tolerating her diet without difficulty. She has not had bowel movement since admission. She does not report some dietary triggers that worsen bloating including broccoli. Patient is requesting to have labs for vitamin A, E, K drawn (defer to primary care team). Review of Systems Review of Systems: All systems reviewed & are unremarkable except as noted in HPI & below Gastrointestinal: + abdominal pain Physical Exam Gastrointestinal (Abdomen): normal bowel sounds, soft, nontender, no hepatosplenomegaly Results & Data Vital Signs (Past 12 Hours) Vital Signs Temp Pulse Resp BP BP Pulse Ox O2 Del Method 08/14/22 08:16 36.7 C 79 16 156/64 H 98 Room Air 08/14/22 07:46 Room Air 08/13/22 21:29 36.8 C 69 18 157/82 H 95 Room Air Laboratory Results Laboratory Results - last 24 hr 08/13/22 08/14/22 08/14/22 07:28 05:50 05:50 WBC Pending RBC Pending Hgb Pending Hct Pending MCV Pending MCH Pending MCHC Pending Plt Count Pending Sodium 141 138 Potassium 3.9 4.4 Chloride 108 H 104 Carbon Dioxide 29 29 Anion Gap 4 5 BUN 20 12 Creatinine 0.65 0.66 Est Cr Clr Drug Dosing 102.3 100.7 Est GFR ( Amer) 118.3 117.7 Est GFR (Non-Af Amer) 102.1 101.6 BUN/Creatinine Ratio 30.8 H 18.2 Glucose 80 142 H Calcium 8.0 L 8.8 Total Bilirubin 0.3 AST 15 ALT 14 Alkaline Phosphatase 79 C-Reactive Protein < 0.50 Total Protein 5.4 L Albumin 3.6 Globulin 1.8 L Albumin/Globulin Ratio 2.0
[2022-08-14] MEDS: SERTRALINE HCL 50 MG TABLET PO SCH (09:25)
[2022-08-14] MEDS: PANTOprazole 40 MG in SYRINGE 0 ML IV SCH ×2 (09:25→22:02)
[2022-08-14] MEDS: ENOXAPARIN INJ 40 MG/0.4 ML SYR SQ SCH (09:25)
[2022-08-14] MEDS: busPIRone 5 MG TAB PO SCH ×2 (09:26→22:00)
[2022-08-14] MEDS: buPROPion XL 150 MG TABCR PO SCH (09:26)
[2022-08-14] MEDS: GABAPENTIN 800 MG TAB PO SCH ×2 (09:26→22:01)
--- NOTE | 2022-08-14 09:40 | Medical Student Progress Note ---
Date of Service August 14, 2022 Assessment & Plan (1) Intractable epigastric abdominal pain: Plan: Summary: Bonnie is a 52 year-old woman who has been experiencing severe, persistent epigastric pain for a year despite cholecystectomy and small bowel surgery, with worsening symptoms of nausea and decreased appetite in recent days and no relief from medications. There is an unclear origin of her pain, the differential diagnoses include pancreatitis, biliary pathology, ischemic bowel, volvulus/obstruction, and gastric ulcer. 1. Abdominal Pain - Acute onset, severe & worsening intermittent epigastric pain - Continue IV Protonix 40mg BID, Toradol 15mg q8h PRN for pain, Percocet 10 mg q4h PRN, Dilaudid 0.5 mg q4h PRN - Pain management consulted, recommendations pending - Vitamins A, D, E, K levels ordered, results pending 2. Depression/Anxiety - Continue home bupropion 150 mg PO QAM, buspirone 20 mg PO BID, sertraline 75 mg PO QAM, clonazepam 1 mg PO BID PRN 3. Cervical radiculopathy -Continue home gabapentin 400 mg PO BID Admission and Anticipated Discharge Date Admission Date: August 12, 2022 Supervising Attestation Medical Student Supervision Note: I was personally present during medical student patient encounter and independently interviewed and examined the patient and verified the delarosa history and physical, reviewed labs and image studies, discussed the case with Nabila Rivera and agree with the findings and care plan. Epigastric pain - GI input noted. EUS findings of chronic pancreatitis. Possibly from chronic alcohol use but denying use. Did have elevated blood alc level on admission. Able to tolerate PO intake. On IV PPI On IV and PO narcotic regimen. In setting of chronic pain from DDD - pain mx consulted - awaiting formal report. [place] outpatient pain management [place] [facility]. Continue home meds. Subjective Bonnie is a 52 year-old woman who has been experiencing severe, persistent epigastric pain for a year despite cholecystectomy and small bowel surgery, with worsening symptoms of nausea and decreased appetite in recent days and no relief from medications. 08/13/2022: The patient continues to have pain in her epigastric abdomen as of today. When she was assessed this morning, she was walking around the room about to shower. She has been prescribed Percocet, which she reports is effective for pain control for three hours. Her request is to be moved to the third floor and to understand why she is wearing a statistician applied. 08/14/2022: This morning, Bonnie says that adjusting her pain medication has been somewhat helpful,but she is still experiencing 7/10 abdominal pain. She can eat without problems, but she hasn't had a bowel movement since she was admitted. She hasn't noticed any specific foods that make her bloating worse, except for broccoli. She has had increased gas since eating broccoli last night. She would also like to check her vitamin A, E, and K levels. Physical Exam Constitutional: WD/WN, vitals as above + thin and cooperative; no acute distress Eyes: PERRL, conjunctivae normal, anicteric sclerae Neck: trachea midline, no thyromegaly Respiratory: normal respiratory effort, lungs clear to auscultation Cardiovascular: RRR, no murmur, no edema Gastrointestinal (Abdomen): Inspection/Auscultation: abdomen normal to inspection and normal bowel sounds; abdomen not distended Percussion/Palpat ion: + abdomen tender and abdomen soft; no guarding, abdomen not rigid, no hepatosplenomegaly and no abdominal mass Skin: no rashes, warm and dry Psychiatric: A+Ox3, euthymic affect Results & Data Vital Signs (Past 12 Hours) Vital Signs Temp Pulse Resp BP BP Pulse Ox O2 Del Method 08/14/22 08:16 36.7 C 79 16 156/64 H 98 Room Air 08/14/22 07:46 Room Air 08/13/22 21:29 36.8 C 69 18 157/82 H 95 Room Air Laboratory Results 08/14/22 08/14/22 08/14/22 05:50 05:50 05:50 WBC 6.67 RBC 3.44 L Hgb 11.3 L Hct 33.7 L MCV 98.0 MCH 32.8 MCHC 33.5 RDW Std Deviation 45.9 RDW Coeff of Angelique 12.8 Plt Count 309 MPV 10.0 Sodium 138 Potassium 4.4 Chloride 104 Carbon Dioxide 29 Anion Gap 5 BUN 12 Creatinine 0.66 Est Cr Clr Drug Dosing 100.7 Est GFR ( Amer) 117.7 Est GFR (Non-Af Amer) 101.6 BUN/Creatinine Ratio 18.2 Glucose 142 H Calcium 8.8 Total Bilirubin Cancelled 0.4 Direct Bilirubin Cancelled 0.1 AST Cancelled 14 ALT Cancelled 13 Alkaline Phosphatase Cancelled 94 Total Protein Cancelled 6.1 Albumin Cancelled 4.2 Diagnostic Findings Laboratory Results WBC 6.67 K/ul (4.8-10.8) 08/14/22 05:50 RBC 3.44 M/uL (4.20-5.40) L 08/14/22 05:50 Hgb 11.3 g/dl (12.0-16.0) L 08/14/22 05:50 Hct 33.7 % (37.0-47.0) L 08/14/22 05:50 MCV 98.0 fL (80.0-100.0) 08/14/22 05:50 MCH 32.8 pg (25.0-34.0) 08/14/22 05:50 MCHC 33.5 g/dL (32.0-36.0) 08/14/22 05:50 RDW Std Deviation 45.9 fL (36.4-46.3) 08/14/22 05:50 RDW Coeff of Angelique 12.8 % (11.5-14.5) 08/14/22 05:50 Plt Count 309 K/uL (130-400) 08/14/22 05:50 MPV 10.0 fL (9.4-12.4) 08/14/22 05:50 Immature Gran % (Auto) 0.2 % 08/13/22 07:28 Neut % (Auto) 29.8 % 08/13/22 07:28 Lymph % (Auto) 53.8 % 08/13/22 07:28 [place] % (Auto) 6.5 % 08/13/22 07:28 Eos % (Auto) 8.2 % 08/13/22 07:28 Baso % (Auto) 1.5 % 08/13/22 07:28 Neut # (Auto) 1.60 K/uL (1.40-6.50) 08/13/22 07:28 Lymph # (Auto) 2.89 K/uL (1.2-3.4) 08/13/22 07:28 [place] # (Auto) 0.35 K/uL (0.11-0.59) 08/13/22 07:28 Eos # (Auto) 0.44 K/uL (0-0.50) 08/13/22 07:28 Baso # (Auto) 0.08 K/uL (0-0.2) 08/13/22 07:28 Immature Gran # (Auto) 0.01 K/uL (0.01-0.20) 08/13/22 07:28 ESR < 1 mm/hr (0-30) 08/13/22 07:28 VBG pH 7.49 (7.36-7.41) H 08/12/22 19:04 VBG pCO2 33 mmHg (38-50) L 08/12/22 19:04 VBG pO2 68 mmHg 08/12/22 19:04 VBG HCO3 25 mmol/L 08/12/22 19:04 VBG O2 Saturation 95.1 % 08/12/22 19:04 VBG Base Excess 2.2 mEq/L 08/12/22 19:04 Sodium 138 mmol/L (136-145) 08/14/22 05:50 Potassium 4.4 mmol/L (3.5-5.1) 08/14/22 05:50 Chloride 104 mmol/L (98-107) 08/14/22 05:50 Carbon Dioxide 29 mmol/L (21-32) 08/14/22 05:50 Anion Gap 5 (3-11) 08/14/22 05:50 BUN 12 mg/dl (6-23) 08/14/22 05:50 Creatinine 0.66 mg/dl (0.6-1.2) 08/14/22 05:50 Est Cr Clr Drug Dosing 100.7 ml/min 08/14/22 05:50 Est GFR ( Amer) 117.7 ml/min 08/14/22 05:50 Est GFR (Non-Af Amer) 101.6 ml/min 08/14/22 05:50 BUN/Creatinine Ratio 18.2 (10-20) 08/14/22 05:50 Glucose 142 mg/dl (70-99(Fasting)) H 08/14/22 05:50 Lactate 1.4 mmol/L (0.4-2.0) 08/12/22 21:07 Calcium 8.8 mg/dl (8.6-10.3) 08/14/22 05:50 Magnesium 2.2 mg/dl (1.7-2.4) 08/12/22 19:04 Total Bilirubin 0.4 mg/dl (0.2-1.0) 08/14/22 05:50 Total Bilirubin Cancelled 08/14/22 05:50 Direct Bilirubin 0.1 mg/dl (0-0.2) 08/14/22 05:50 Direct Bilirubin Cancelled 08/14/22 05:50 AST 14 U/L (13-39) 08/14/22 05:50 AST Cancelled 08/14/22 05:50 ALT 13 U/L (7-52) 08/14/22 05:50 ALT Cancelled 08/14/22 05:50 Alkaline Phosphatase 94 U/L (34-104) 08/14/22 05:50 Alkaline Phosphatase Cancelled 08/14/22 05:50 Troponin I High Sens 2.9 pg/ml (0-14) 08/12/22 19:04 C-Reactive Protein < 0.50 mg/dl (0-0.5) 08/13/22 07:28 Total Protein 6.1 gm/dl (6.0-8.3) 08/14/22 05:50 Total Protein Cancelled 08/14/22 05:50 Albumin 4.2 gm/dl (3.4-5.0) 08/14/22 05:50 Albumin Cancelled 08/14/22 05:50 Globulin 1.8 gm/dl (2.5-4.0) L 08/13/22 07:28 Albumin/Globulin Ratio 2.0 (0.9-2) 08/13/22 07:28 Lipase 14 U/L (11-82) 08/12/22 19:04 Urine Color Yellow 08/12/22 19:50 Urine Appearance Clear (Clear) 08/12/22 19:50 Urine pH 6.5 (4.5-7.5) 08/12/22 19:50 Ur Specific [place] 1.005 (1.000-1.030) 08/12/22 19:50 Urine Protein Negative (Negative) 08/12/22 19:50 Urine Glucose (UA) Negative (Negative) 08/12/22 19:50 Urine Ketones Negative (Negative) 08/12/22 19:50 Urine Blood Negative (Negative) 08/12/22 19:50 Urine Nitrite Negative (Negative) 08/12/22 19:50 Urine Bilirubin Negative (Negative) 08/12/22 19:50 Urine Urobilinogen Negative (Negative) 08/12/22 19:50 Ur Leukocyte Esterase Negative (Negative) 08/12/22 19:50 Ethyl Alcohol mg/dL 276.5 mg/dl (<10.0) H 08/12/22 19:04 SARS-CoV-2, RNA, NAAT NEGATIVE (NEGATIVE) 08/12/22 21:55 Impressions KUB X-Ray 08/12/22 19:37 KUB CLINICAL HISTORY: Vomiting. FINDINGS: 2 AP supine abdominal radiographs are compared to study dated 10/26/2021 and correlated with abdominal CT dated 07/16/2022. Cholecystectomy clips are seen in the right upper quadrant. There is no bowel obstruction. Moderate fecal retention is noted throughout the colon. There are no abnormal abdominal calcifications. Phleboliths are seen in the pelvis. The skeletal structures are osteopenic and appear intact. There is mild lumbosacral spondylosis. The lung bases are clear as imaged. IMPRESSION: No acute abnormality is identified. Electronically signed by: Eliud Marcano M.D. 08/13/2022 7:52 AM Medications Administered Bupropion HCl (Bupropion Xl 150 Mg Tabcr) [facility] [place] Stop: 09/12/22 08:59 Last Admin: 08/14/22 09:26 Dose: 150 mg Documented By: Admin: 08/13/22 08:08 Dose: 150 mg Documented By: AYESHA Buspirone HCl (Buspirone 5 Mg Tab) 20 mg PO BID [facility] Stop: 09/12/22 08:59 Last Admin: 08/14/22 09:26 Dose: 20 mg Documented By: Admin: 08/13/22 20:23 Dose: 20 mg Documented By: [facility] Admin: 08/13/22 08:08 Dose: 20 mg Documented By: AYESHA Clonazepam (Clonazepam 1 Mg Tab) 1 mg PO BID PRN PRN Reason: Anxiety Stop: 09/11/22 23:37 Last Admin: 08/13/22 00:29 Dose: 1 mg Documented By: LUIS Enoxaparin Sodium (Enoxaparin Inj 40 Mg/0.4 Ml Syr) 40 mg SQ QAM [facility] Stop: 09/13/22 08:59 Last Admin: 08/14/22 09:25 Dose: 40 mg Documented By: BHAVESH Gabapentin (Gabapentin 800 Mg Tab) 800 mg PO BID [facility] Stop: 09/11/22 23:37 Last Admin: 08/14/22 09:26 Dose: 800 mg Documented By: Admin: 08/13/22 20:23 Dose: 800 mg Documented By: Admin: 08/13/22 08:06 Dose: 800 mg Documented By: Admin: 08/13/22 00:12 Dose: 800 mg Documented By: LUIS Hydromorphone HCl (Hydromorphone Inj 0.5 Mg/0.5 Ml Syr) 0.5 mg IV Q4H PRN PRN Reason: Pain Stop: 08/27/22 14:06 Last Admin: 08/14/22 13:38 Dose: 0.5 mg Documented By: BHAVESH Pantoprazole Sodium 40 mg/ (Syringe) 10 mls @ 5 mls/min IV BID [facility] Stop: 09/12/22 08:59 Last Admin: 08/14/22 09:25 Dose: 5 mls/min Documented By: Admin: 08/13/22 20:23 Dose: 5 mls/min Documented By: Admin: 08/13/22 08:06 Dose: 5 mls/min Documented By: AYESHA Ketorolac Tromethamine (Ketorolac Tromethamine 15 Mg/Ml Vial) 15 mg IV Q8H PRN PRN Reason: Pain Stop: 08/17/22 23:37 Last Admin: 08/13/22 11:08 Dose: 15 mg Documented By: Admin: 08/13/22 00:28 Dose: 15 mg Documented By: LUIS Oxycodone/Acetaminophen (Oxycodone/Acetaminophen 10-325 Tab) 1 tab PO Q4H PRN PRN Reason: moderate-severe pain Stop: 08/26/22 23:37 Last Admin: 08/14/22 15:28 Dose: 1 tab Documented By: Admin: 08/14/22 10:20 Dose: 1 tab Documented By: Admin: 08/14/22 05:59 Dose: 1 tab Documented By: Admin: 08/13/22 23:36 Dose: 1 tab Documented By: Admin: 08/13/22 19:22 Dose: 1 tab Documented By: QUOC Sertraline HCl (Sertraline Hcl 50 Mg Tablet) 75 mg PO QAM [facility] Stop: 09/12/22 08:59 Last Admin: 08/14/22 09:25 Dose: 75 mg Documented By: Admin: 08/13/22 08:06 Dose: 75 mg Documented By: AYESHA
[2022-08-14 10:07] LABS: Albumin Level 4.2 gm/dl (3.4-5.0); Bilirubin Direct 0.1 mg/dl (0-0.2); Bilirubin,Total 0.4 mg/dl (0.2-1.0); Total Protein 6.1 gm/dl (6.0-8.3)
[2022-08-14 10:33] LABS: Hematocrit (blood only) 33.7 % (37.0-47.0); Hemoglobin 11.3 g/dl (12.0-16.0); Mean Corpuscular Hemoglobin 32.8 pg (25.0-34.0); Mean Corpuscular Hgb Conc 33.5 g/dL (32.0-36.0); Platelet Count 309 K/uL (130-400); RDW Coefficient of Variation 12.8 % (11.5-14.5); RDW Standard Deviation 45.9 fL (36.4-46.3); Red Blood Count 3.44 M/uL (4.20-5.40); White Blood Count 6.67 K/ul (4.8-10.8)
--- NOTE | 2022-08-14 13:52 | Pain Management Consultation ---
Date of Consultation August 14, 2022 History of Present Illness Attending Physician: Mariel Sanchez MD Allergies Allergy/AdvReac Type Severity Reaction Status Date / Time rizatriptan Allergy Severe Difficulty Verified 08/12/22 21:18 Breathing benzoin Allergy Intermediate USED TO Verified 08/12/22 21:18 PUT UNDER STERI STRIPS TO KEEP THEM ON -- BLISTERS tramadol AdvReac Intermediate N/V Verified 08/12/22 21:18 Home Medications Medication Instructions Recorded Confirmed Type clonazepam 1 mg tablet 1 mg PO BID PRN Anxiety 02/10/18 08/12/22 History acetaminophen 500 mg tablet 1,000 mg PO DIRECTED PRN Pain 09/19/19 08/12/22 History (Tylenol Extra Strength) bupropion HCl 150 mg 24 hr tablet, 150 mg PO QAM 09/19/19 08/12/22 History extended release (Wellbutrin XL) gabapentin 400 mg capsule 800 mg PO BID 06/26/20 08/12/22 History sertraline 50 mg tablet 75 mg PO QAM 06/26/20 08/12/22 History buspirone 10 mg tablet 20 mg PO BID 06/21/22 08/12/22 History omeprazole 20 mg capsule,delayed 20 mg PO BID 07/15/22 08/12/22 History release ergocalciferol (vitamin D2) 1,250 50,000 unit PO WK 2 months #7 caps 07/22/22 08/12/22 Rx mcg (50,000 unit) capsule oxycodone-acetaminophen 10 mg-325 1 tab PO QID PRN pain #12 tabs 07/22/22 08/12/22 Rx mg tablet methylprednisolone 4 mg tablets in 4 mg PO .TAPER UD 08/12/22 08/12/22 History a dose pack Patient History Medical History Cervical disc herniation (02/18/14) Cervical radiculopathy GOOD ROM PER PT Chronic low back pain Chronic neck pain Disc degeneration, lumbar Dysuria Electrolyte abnormality NEL (generalized anxiety disorder) Hematuria Hx of migraines Hydronephrosis, right Intractable abdominal pain Lab test negative for COVID-19 virus MDD (major depressive disorder) Migraine [place] Osteoarthritis Peripheral neuropathy Urge and stress incontinence Urinary retention UTI (urinary tract infection) Surgical History H/O abdominal surgery (10/27/21) Laparoscopic Washout S/P Laparoscopic Cholecystectomy(Not Applicable) - Sukumar Wood, DO H/O hand surgery repair of hand injury due to a dog bite H/O wrist surgery History of breast biopsy History of cystoscopy History of esophagogastroduodenoscopy (EGD) History of mandibular surgery History of robot-assisted laparoscopic hysterectomy Hx of abdominal surgery (10/25/21) p Diagnostic Laparoscopy with Pelvic Washings(Not Applicable) - Sukumar Wood, DO s Laparoscopic Cholecystectomy - Sukumar Wood, DO Hx of cystoscopy (~08/15/20) TURBT with stent placement [facility] Hx of lumpectomy LEFT (BENIGN) S/P cervical spinal fusion C4-C5 & C5-C6. TOTAL OF 3 FUSIONS ([employer]). LIMITED RANGE TO LEFT. HAS BEEN INTUBATED SINCE. Cervical Arthroplasty C4-C5 02/18/14: MAC #3, ETT #7.0, Grade 1 View, Smooth intubation on 1st attempt S/P hardware removal CERVICAL S/P ureteral stent placement Family History Father Cardiac disorder Malignant neoplasm of colon Prostate cancer Colorectal cancer Aunt Breast cancer Denies family history of Ovarian cancer Social History Smoking Status: Never smoker Second Hand Exposure: No; Do You Dip or Chew Tobacco: No; Tobacco Cessation Education Requested by Patient: No Hx Alcohol Use: No (Per pt but ethyl alcohol came back positive) Hx Substance Use: No Preferred Language: Fijian Communication Ability: Effective Visual Impairment: No Limitations Poacher Operator Required: No Beliefs That Will Affect Care: None marital status: Current Living Situation: Spouse and Family Current Living Situation Comment: at home How many Children do You have: 2 Other Information That Helps Us Care for You: No Feels Safe at Home: Yes Safety Concerns: Feels Safe At This Time Assistive Devices: None
--- NOTE | 2022-08-14 13:54 | Pain Management Consultation ---
Date of Consultation August 14, 2022 Assessment & Plan (1) Intractable epigastric abdominal pain: (2) Chronic recurrent pancreatitis: Plan 1. Discussed a celiac plexus block with the patient. However, did not recommend this procedure due to its riskiness. Patient is also not interested in this procedure due to its risks. * Unfortunately, there are no other procedural interventions to offer the patient. 2. May consider psychiatry consult to discuss situation with alcohol. They may consider starting Cymbalta. 3. Consider IV Tylenol to stagger with the Percocet and Dilaudid. 4. Pain management service will sign off at this time, please reconsult if needed. History of Present Illness Reason for Consultation: Epigastric abdominal pain Attending Physician: Mariel Sanchez MD History of Present Illness Patient is a 52-year-old female that the pain management service has been consulted on for epigastric abdominal pain of a recurrent nature. This most recent bout of pain began last , 08/09. She had epigastric abdominal pain, nausea, and vomiting at that time she does have a history of chronic pancreatitis, from what seems as secondary to alcohol abuse. Although, the patient adamantly denies recent alcohol use to all providers and medical personnel that she talks to. Her ethyl alcohol level in the ER was very high at 276.5. Patient tried to say that may be this was due to her mouth wash, and she had her go check this she says, and he told her that there was no alcohol in her mouthwash. Patient says that she could probably handle the pain currently if she was allowed to take the Percocet and Dilaudid more often, as every 6 hours is not often enough for her. Pain Assessment Full Body Front + Back: 1. Allergies Allergy/AdvReac Type Severity Reaction Status Date / Time rizatriptan Allergy Severe Difficulty Verified 08/12/22 21:18 Breathing benzoin Allergy Intermediate USED TO Verified 08/12/22 21:18 PUT UNDER STERI STRIPS TO KEEP THEM ON -- BLISTERS tramadol AdvReac Intermediate N/V Verified 08/12/22 21:18 Home Medications Medication Instructions Recorded Confirmed Type clonazepam 1 mg tablet 1 mg PO BID PRN Anxiety 02/10/18 08/12/22 History acetaminophen 500 mg tablet 1,000 mg PO DIRECTED PRN Pain 09/19/19 08/12/22 History (Tylenol Extra Strength) bupropion HCl 150 mg 24 hr tablet, 150 mg PO QAM 09/19/19 08/12/22 History extended release (Wellbutrin XL) gabapentin 400 mg capsule 800 mg PO BID 06/26/20 08/12/22 History sertraline 50 mg tablet 75 mg PO QAM 06/26/20 08/12/22 History buspirone 10 mg tablet 20 mg PO BID 06/21/22 08/12/22 History omeprazole 20 mg capsule,delayed 20 mg PO BID 07/15/22 08/12/22 History release ergocalciferol (vitamin D2) 1,250 50,000 unit PO WK 2 months #7 caps 07/22/22 08/12/22 Rx mcg (50,000 unit) capsule oxycodone-acetaminophen 10 mg-325 1 tab PO QID PRN pain #12 tabs 07/22/22 08/12/22 Rx mg tablet methylprednisolone 4 mg tablets in 4 mg PO .TAPER UD 08/12/22 08/12/22 History a dose pack Pain History Chief Complaint Chief Complaint: Recurrent abdominal pain Patient History Medical History Cervical disc herniation (02/18/14) Cervical radiculopathy GOOD ROM PER PT Chronic low back pain Chronic neck pain Disc degeneration, lumbar Dysuria Electrolyte abnormality NEL (generalized anxiety disorder) Hematuria Hx of migraines Hydronephrosis, right Intractable abdominal pain Lab test negative for COVID-19 virus MDD (major depressive disorder) Migraine [place] Osteoarthritis Peripheral neuropathy Urge and stress incontinence Urinary retention UTI (urinary tract infection) Surgical History H/O abdominal surgery (10/27/21) Laparoscopic Washout S/P Laparoscopic Cholecystectomy(Not Applicable) - Sukumar Wood, H/O hand surgery repair of hand injury due to a dog bite H/O wrist surgery History of breast biopsy History of cystoscopy History of esophagogastroduodenoscopy (EGD) History of mandibular surgery History of robot-assisted laparoscopic hysterectomy Hx of abdominal surgery (10/25/21) p Diagnostic Laparoscopy with Pelvic Washings(Not Applicable) - Sukumar Wood, DO s Laparoscopic Cholecystectomy - Sukumar Wood, DO Hx of cystoscopy (~08/15/20) TURBT with stent placement [facility] Hx of lumpectomy LEFT (BENIGN) S/P cervical spinal fusion C4-C5 & C5-C6. TOTAL OF 3 FUSIONS ([employer]). LIMITED RANGE TO LEFT. HAS BEEN INTUBATED SINCE. Cervical Arthroplasty C4-C5 02/18/14: MAC #3, ETT #7.0, Grade 1 View, Smooth intubation on 1st attempt S/P hardware removal CERVICAL S/P ureteral stent placement Family History Father Cardiac disorder Malignant neoplasm of colon Prostate cancer Colorectal cancer Aunt Breast cancer Denies family history of Ovarian cancer Social History Smoking Status: Never smoker Second Hand Exposure: No; Do You Dip or Chew Tobacco: No; Tobacco Cessation Education Requested by Patient: No Hx Alcohol Use: No (Per pt but ethyl alcohol came back positive) Hx Substance Use: No Preferred Language: Ukrainian Communication Ability: Effective Visual Impairment: No Limitations Business Services Administrator Required: No Beliefs That Will Affect Care: None marital status: Current Living Situation: Spouse and Family Current Living Situation Comment: at home How many Children do You have: 2 Other Information That Helps Us Care for You: No Feels Safe at Home: Yes Safety Concerns: Feels Safe At This Time Assistive Devices: None Physical Exam Constitutional: WD/WN, vitals as above Eyes: PERRL, conjunctivae normal, anicteric sclerae Neck: trachea midline, no thyromegaly Gastrointestinal (Abdomen): Percussion/Palpation: + abdomen tender (Epigastrium), + guarding and abdomen soft; no hepatosplenomegaly, no abdominal mass and no pulsatile mass + left CVA tenderness Neurologic: moves all extremities and awake Psychiatric: Affect: + tearful affect Cries during questioning about alcohol use Results (Pain Clinic) Diagnostic Review Radiology Findings: KUB CLINICAL HISTORY: Vomiting. FINDINGS: 2 AP supine abdominal radiographs are compared to study dated 10/26/2021 and correlated with abdominal CT dated 07/16/2022. Cholecystectomy clips are seen in the right upper quadrant. There is no bowel obstruction. Moderate fecal retention is noted throughout the colon. There are no abnormal abdominal calcifications. Phleboliths are seen in the pelvis. The skeletal structures are osteopenic and appear intact. There is mild lumbosacral spondylosis. The lung bases are clear as imaged. IMPRESSION: No acute abnormality is identified. Electronically signed by: Eliud Marcano M.D. 08/13/2022 7:52 AM Dictated:08/13/22 0751 Transcribed: 08/13/22 0751
[2022-08-14] MEDS: DOCUSATE SODIUM/SENNA 50/8.6MG TAB PO SCH (17:49)
[2022-08-14] MEDS: KETOROLAC TROMETHAMINE 15 MG/ML VIAL IV PRN (19:17)
[2022-08-14] MEDS: SIMETHICONE 80 MG CHEW PO PRN (19:18)
[2022-08-15] MEDS: oxyCODONE/ACETAMINOPHEN 10-325 TAB PO PRN ×4 (00:53→19:37)
[2022-08-15] MEDS: MELATONIN 3 MG TAB PO PRN (02:07)
[2022-08-15] MEDS: HYDROmorphone INJ 0.5 MG/0.5 ML SYR IV PRN ×3 (03:22→16:37)
[2022-08-15 07:15] LABS: Hematocrit (blood only) 33.7 % (37.0-47.0); Hemoglobin 11.3 g/dl (12.0-16.0); Mean Corpuscular Hemoglobin 33.2 pg (25.0-34.0); Mean Corpuscular Hgb Conc 33.5 g/dL (32.0-36.0); Mean Corpuscular Volume 99.1 fL (80.0-100.0); Mean Platelet Volume 9.7 fL (9.4-12.4); Platelet Count 259 K/uL (130-400); RDW Coefficient of Variation 13.2 % (11.5-14.5); RDW Standard Deviation 46.8 fL (36.4-46.3); White Blood Count 5.29 K/ul (4.8-10.8)
--- NOTE | 2022-08-15 07:41 | Hospitalist Progress Note ---
Date of Service August 15, 2022 Assessment & Plan (1) Intractable epigastric abdominal pain: Plan: Pt is a 52 yo woman with PMH of cervical radiculopathy, NEL, migraines, and stress incontinence presenting with an acute exacerbation of chronic abdominal pain. She has been experiencing severe, persistent epigastric pain for a year despite cholecystectomy and small bowel surgery, with worsening symptoms of nausea and decreased appetite in recent days and no relief from medications. Acute exacerbation of chronic epigastric abdominal pain - unclear origin of her pain; differential includes chronic pancreatitis, biliary pathology, ischemic bowel, volvulus/obstruction, and gastric ulcer - recent EGD (07/2022) showed gastritis, normal duodenum - pain management consulted; celiac plexus block discussed but not recommended, no other procedural interventions available - Vitamin D level low; vitamins A, E, and K pending - continue protonix 40mg BID, percocet 10 mg q4h PRN; d/c toradol as pt states it does not help; spacing IV dilaudid from q4hr to q8hr Depression/anxiety - continue home bupropion 150 mg PO QAM, buspirone 20 mg PO BID, sertraline 75 mg PO QAM, clonazepam 1 mg PO BID PRN Cervical radiculopathy - continue home gabapentin 400 mg PO BID Diet: low fat DVT ppx: lovenox Code: full Dispo: med/surg, once pt's pain is controlled off IV medications, pt suitable for d/c home Admission and Anticipated Discharge Date Admission Date: August 14, 2022 Supervising Physician Co-Signing Physician Notes Resident Physician Supervision Note: I independently interviewed and examined the patient and verified the delarosa history and physical, reviewed labs and image studies and agree with resident findings and care plan. Subjective Pt seen at bedside. She states her pain is better after talking with pain management and "making some changes" to her medications. She had two BM overnight. She has been trying to space out her IV pain medications because she knows that she cannot be discharged while still requiring these meds. She plans to f/u with [facility] before her GI appt in [place] in October. She also has a PCP appt Saturday of this week. Review of Systems Review of Systems: As per HPI Physical Exam Physical Exam: Constitutional: well appearing, no acute distress HEENT: normocephalic, no conjunctival injection CV: RRR, no murmur Respiratory: CTA bilaterally. No rhonchi, wheezes, or crackles. No increased work of breathing GI: soft, nondistended, voluntary guarding noted, tender throughout but with heightened tenderness in epigastric region and LUQ, + bowel sounds MSK: no gross deformities noted Neuro: alert, oriented, no FND noted Psych: mood and affect congruent Results & Data Results & Data Vital Signs (Past 12 Hours) Vital Signs Temp Pulse Resp BP Pulse Ox O2 Del Method 08/14/22 21:58 36.7 C 72 18 153/81 H 96 Room Air Resident Activity Tracking Resident Involvement: Resident Care Provided Care Provided: Adult Hospital Medicine
[2022-08-15 07:51] LABS: BUN Creatinine Ratio 32.3 (10-20); Calcium 8.7 mg/dl (8.6-10.3); Creatinine Clr Calc Pharmacy 107.2 ml/min; Est GFR (African American) 120.2 ml/min; Est GFR (Non-African American) 103.7 ml/min; Potassium 3.5 mmol/L (3.5-5.1)
[2022-08-15] MEDS: SERTRALINE HCL 50 MG TABLET PO SCH (08:11)
[2022-08-15] MEDS: buPROPion XL 150 MG TABCR PO SCH (08:11)
[2022-08-15] MEDS: DOCUSATE SODIUM/SENNA 50/8.6MG TAB PO SCH (08:11)
[2022-08-15] MEDS: PANTOprazole 40 MG in SYRINGE 0 ML IV SCH (08:11)
[2022-08-15] MEDS: GABAPENTIN 800 MG TAB PO SCH ×2 (08:11→20:24)
[2022-08-15] MEDS: busPIRone 5 MG TAB PO SCH ×2 (08:11→20:24)
[2022-08-15] MEDS: ENOXAPARIN INJ 40 MG/0.4 ML SYR SQ SCH (08:11)
[2022-08-15] MEDS: PANTOprazole 40 MG TAB PO SCH (20:24)
[2022-08-16] MEDS: HYDROmorphone INJ 0.5 MG/0.5 ML SYR IV PRN ×2 (00:27→08:24)
[2022-08-16] MEDS: clonazePAM 1 MG TAB PO PRN (00:27)
[2022-08-16] MEDS: MELATONIN 3 MG TAB PO PRN (00:27)
[2022-08-16] MEDS: oxyCODONE/ACETAMINOPHEN 10-325 TAB PO PRN ×3 (05:42→15:13)
[2022-08-16 07:42] LABS: Hematocrit (blood only) 35.1 % (37.0-47.0); Hemoglobin 11.7 g/dl (12.0-16.0); Mean Corpuscular Hemoglobin 33.1 pg (25.0-34.0); Mean Corpuscular Hgb Conc 33.3 g/dL (32.0-36.0); Mean Corpuscular Volume 99.4 fL (80.0-100.0); Mean Platelet Volume 9.2 fL (9.4-12.4); Platelet Count 274 K/uL (130-400); RDW Coefficient of Variation 13.3 % (11.5-14.5); RDW Standard Deviation 47.8 fL (36.4-46.3); Red Blood Count 3.53 M/uL (4.20-5.40)
[2022-08-16 08:03] LABS: BUN Creatinine Ratio 22.6 (10-20); Creatinine Clr Calc Pharmacy 107.2 ml/min; Est GFR (African American) 120.2 ml/min; Est GFR (Non-African American) 103.7 ml/min; Potassium 3.9 mmol/L (3.5-5.1)
[2022-08-16] MEDS: buPROPion XL 150 MG TABCR PO SCH (08:25)
[2022-08-16] MEDS: busPIRone 5 MG TAB PO SCH (08:25)
[2022-08-16] MEDS: GABAPENTIN 800 MG TAB PO SCH (08:26)
[2022-08-16] MEDS: ENOXAPARIN INJ 40 MG/0.4 ML SYR SQ SCH (08:26)
[2022-08-16] MEDS: SERTRALINE HCL 50 MG TABLET PO SCH (08:26)
[2022-08-16] MEDS: PANTOprazole 40 MG TAB PO SCH (08:26)
[2022-08-16] MEDS: DOCUSATE SODIUM/SENNA 50/8.6MG TAB PO SCH (08:26)
--- NOTE | 2022-08-16 09:39 | Discharge Summary ---
Date of Service August 16, 2022 Admission HPI Per Admitting Provider Bonnie is a 52 y/o F w/ PmHx cholecystectomy, SBO, pancreatitis episodes x4, NEL, MDD, cervical radiculopathy s/p cervical fusion presenting with abdominal and epigastric pain since Saturday. Patient states that she has been to the hospital 4 times over recent months and she is very concerned about what the underlyin cause of her abdominal/epigastric pain may be. The pain waxes and wanes and is usually at the epigastric region and radiates down to the LLQ. She denies this feeling like heart related chest pain. She states that Saturday she started to get worsening of her pain and by night she was at a bad spot for her pain again similar to previous episodes. She had decreased appetite and nausea as well. She has an appointment with GI at [facility] in October but could not wait and needed to get checked out because of the recurrence of pain. She denies shortness of breath, dysuria. She has had diarrhea for the past 5 years around 4-5 times per day. She was also recently treated with Macrobid this past month for a UTI. Stools are watery for her and float/more oily in consistency. Of note patient is doing a low fat diet. In the ED CBC unremarkable, CMP showed downtrending of LFTs, troponin and lipase negative, and alcohol level of 276.5. No acute abnormalities seen on KUB, no air under diaphragm visualized. Admission Exam Per Admitting Provider Constitutional: WD/WN, vitals as above Patient visibly in pain with legs curled and clutching abdomen. Eyes:J PERRL, conjunctivae normal, anicteric sclerae Respiratory: normal respiratory effort, lungs clear to auscultation Cardiovascular: RRR, no murmur, no edema Gastrointestinal (Abdomen): BS+, non-distended, tender to palpation at the epigastric region and LLQ, soft. Psychiatric: AOx3, tearful at times when relaying her HPI. Principal Diagnosis intractable epigastric pain of unknown etiology Discharge Exam Constitutional: well appearing, no acute distress HEENT: normocephalic, no conjunctival injection CV: regular rhythm, no murmur Respiratory: Clear to auscultation bilaterally. No rhonchi, wheezes, or crackles. No increased work of breathing GI: soft, nondistended, tender upon palpation of epigastric region and LUQ, positive bowel sounds MSK: no gross deformities noted Skin: warm, dry, no rashes Neuro: alert, oriented, no FND noted Discharge Data Allergies Allergy/AdvReac Type Severity Reaction Status Date / Time rizatriptan Allergy Severe Difficulty Verified 08/12/22 21:18 Breathing benzoin Allergy Intermediate USED TO Verified 08/12/22 21:18 PUT UNDER STERI STRIPS TO KEEP THEM ON -- BLISTERS tramadol AdvReac Intermediate N/V Verified 08/12/22 21:18 Consultations 08/12/22 20:20 ED Decision to Admit Stat 08/12/22 23:38 Consult Gastroenterology Routine 08/13/22 11:15 Consult Pain Management Routine Hospital Course (1) Intractable epigastric abdominal pain: Pt is a 52 yo woman with PMH of cervical radiculopathy, NEL, migraines, and stress incontinence presenting with an acute exacerbation of chronic abdominal pain. She has been experiencing severe, persistent epigastric pain for a year despite cholecystectomy and small bowel surgery, with worsening symptoms of nausea and decreased appetite in recent days and no relief from medications. Acute exacerbation of chronic epigastric abdominal pain Recurrent chronic pancreatitis - recent EGD (07/2022) showed gastritis, normal duodenum - pain management consulted; celiac plexus block discussed but not recommended, no other procedural interventions available - Vitamin D level low; vitamins A, E, and K pending - pt did receive IV dilaudid and toradol (which pt states did not help) during her hospitalization for further pain control; her pain was controlled w/o these meds prior to d/c - continue home omeprazole 20mg BID, percocet 10 mg q6-8h PRN Depression/anxiety - continue home bupropion 150 mg PO QAM, buspirone 20 mg PO BID, sertraline 75 mg PO QAM, clonazepam 1 mg PO BID PRN Cervical radiculopathy - continue home gabapentin 400 mg PO BID ?Alcohol use - ethyl alcohol level at 276 upon admission; ER physician makes note of pt smelling of alcohol - pt adamantly denied alcohol use to many staff members - she may benefit from further discussions concerning alcohol use as if she drinks heavily this may be contributing to her abdominal pain Diet: low fat DVT ppx: lovenox Code: full Dispo: d/c home with close PCP/GI/pain management f/u Total Time Total Time Spent Total Time Spent (In Minutes): as per attending attestation Discharge Plan Discharge Items Patient Disposition: Home - Self-Care Reason For Visit: EPIGASTRIC/ABDOMINAL PAIN Discharge Diagnosis: epigastric abdominal pain of unknown etiology Activity: Per Instructions section Non-emergency contact: Primary Care Provider and Donor Relations Associate Call non-emergency contact if: you have any medication questions and your symptoms worsen Follow-up/Referrals: Dominga Connolly CRNP [Primary Care Provider] - 08/27/22 3:05 pm Alejandrina Treadwell Jr, MD [Physician] - 08/23/22 1:20 pm Diet: Low Fat Addtl Attending Provider Instructions: You were admitted to the hospital for an acute exacerbation of chronic abdominal pain. An xray of your abdomen was performed which did not show any sign of bowel perforation or severe constipation. You were treated with pain medications which helped decreased the severity of your pain. Vitamins A, D, E, and K levels were ordered while you were hospitalized but these labs take awhile to come back. You should discuss these levels with your PCP/GI doctor upon discharge. You should follow up with GI locally between your discharge and your appointment with GI in [place] in October. You should also keep your PCP appointment for Saturday, 08/17. A discharge summary will be sent to your primary care physician to ensure continuity of care. Please bring this discharge summary with you to your next office appointment so that your provider can review it at that time. Medications: Your medication list has been reviewed and reconciled upon discharge to ensure accuracy and continuity of care. An updated list of all your medications is included with your hospital discharge paperwork. Please review this list closely and make note of any changes to your medications. - You may continue to take the oxycodone/acetaminophen every 6-8 hours as needed for pain. Follow up appointments: - Make a follow up appointment with your PCP within the next week. It is very important that you follow up with them shortly after discharge from the hospital. - Keep all of your follow up appointments as already scheduled. If you cannot make an appointment, notify your provider. CONTACT YOUR PRIMARY CARE PROVIDER if you experience any of the following: - Difficulty following your treatment plan - Difficulty taking any of your medications CALL 911 OR GO TO THE EMERGENCY DEPARTMENT if you experience any of the following: - Sudden, severe abdominal pain or nausea/vomiting - Severe chest pain or chest pain that radiates to your jaw or arm - Sudden, severe shortness of breath or difficulty breathing Pending Studies at Discharge: Yes (Vitamins A, E, and K) Stand-Alone Forms: My [facility], Smoking Cessation Medications and DC Order Prescriptions: Continued clonazepam 1 mg tablet 1 mg PO BID PRN (Reason: Anxiety) bupropion HCl [Wellbutrin XL] 150 mg tablet extended release 24 hr 150 mg PO QAM acetaminophen [Tylenol Extra Strength] 500 mg Tablet 1,000 mg PO DIRECTED PRN (Reason: Pain) buspirone 10 mg tablet 20 mg PO BID gabapentin 400 mg capsule 800 mg PO BID sertraline 50 mg tablet 75 mg PO QAM omeprazole 20 mg capsule,delayed release(DR/EC) 20 mg PO BID ergocalciferol (vitamin D2) 1,250 mcg (50,000 unit) capsule 50,000 unit PO WK 60 Days Qty: 7 0RF Rx Instructions: sun oxycodone-acetaminophen 10-325 mg tablet 1 tab PO QID PRN (Reason: pain) Qty: 12 0RF Discontinued methylprednisolone 4 mg tablets,dose pack 4 mg PO .TAPER UD Rx Instructions: DIDD NOT START YET Discharge Orders: Discharge Order (Routine); Ordered 08/16/22 Ordered By: Wilma Barraza Admission Data Admit Date/Time: 08/14/22 15:49 Attending Provider: Mariel Sanchez Admit Provider: Christopher Cedeño Primary Care Provider: Dominga Connolly Other Providers: Servando Dorman ; Alejandrina Treadwell Jr ; Jackie Hernandez Supervising Physician Co-Signing Physician Notes Resident Physician Supervision Note: I independently interviewed and examined the patient and verified the delarosa history and physical, reviewed labs and image studies and agree with resident findings and care plan. Resident Activity Tracking Resident Involvement: Resident Care Provided Care Provided: Adult Hospital Medicine
[2022-08-16] MEDS: SIMETHICONE 80 MG CHEW PO PRN (10:37)
[2022-08-19] MEDS ORDERED: ERGOCALCIFEROL 50,000 UNITS 1250 MCG CAP PO SCH (09:00)
== END 2022-08-16 18:15 | disposition home or self-care (01) | DRG 439 ==
LOC: ED 18:28 → 2N 18:28 → SUATTDRO 21:22 → 2N 22:53 → 3N 08-13 18:38

== ENCOUNTER 2024-05-22 13:29 | Inpatient (IN) ==
[2024-05-22 14:55] LABS: Basophils # (auto) 0.09 K/uL (0.00-0.20); Basophils % (auto) 1.2 %; Eosinophils % (auto) 4.1 %; Hemoglobin 13.7 g/dl (12.0-16.0); Immature Granulocytes # (auto) 0.02 K/uL (0.01-0.20); Immature Granulocytes % (auto) 0.3 %; Lymphocytes # (auto) 2.23 K/uL (1.20-3.40); Lymphocytes % (auto) 30.7 %; Mean Corpuscular Hemoglobin 31.2 pg (25.0-34.0); Mean Corpuscular Hgb Conc 33.4 g/dL (32.0-36.0); Mean Corpuscular Volume 93.4 fL (80.0-100.0); Mean Platelet Volume 9.8 fL (9.4-12.4); Monocytes # (auto) 0.39 K/uL (0.11-0.59); Monocytes % (auto) 5.4 %; Neutrophils # (auto) 4.23 K/uL (1.40-6.50); Neutrophils % (auto) 58.3 %; Platelet Count 385 K/uL (130-400); RDW Coefficient of Variation 12.5 % (11.5-14.5); RDW Standard Deviation 43.4 fL (36.4-46.3); Red Blood Count 4.39 M/uL (4.20-5.40); White Blood Count 7.26 K/ul (4.8-10.8)
[2024-05-22 15:20] LABS: Potassium 4.2 mmol/L (3.5-5.1)
[2024-05-22 15:21] LABS: BUN Creatinine Ratio 20.7 (10-20); Calcium 9.6 mg/dl (8.6-10.3); Creatinine Clr Calc Pharmacy 79.1 ml/min
[2024-05-22 15:42] LABS: Albumin Globulin Ratio 1.9 (0.9-2); Albumin Level 4.7 gm/dl (3.4-5.0); Bilirubin,Total 0.6 mg/dl (0.2-1.0); Globulin 2.5 gm/dl (2.5-4.0); Total Protein 7.2 gm/dl (6.0-8.3)
--- NOTE | 2024-05-22 16:07 | Emergency Department Note ---
Impression & Plan Abdominal pain ED Provider Note CHIEF COMPLAINT: Abdominal pain HISTORY OF PRESENT ILLNESS: This 54-year-old patient presents to the emergency department via private vehicle for evaluation of abdominal pain. The patient reports a history of pancreatitis, without an elevated lipase level. She reports he takes Creon daily and has not had an episode over the last 2 and half years. She reports a recent EGD and colonoscopy, with no concerning findings. She reports she has a history of a previous cholecystectomy. She states the pain began approximately 5 or 6 days ago, and the left upper quadrant and epigastric region of the abdomen. She reports nausea, vomiting, and diarrhea. She states the pain is severe, and comes in waves. She reports no fevers, chest pain, shortness of breath. REVIEW OF SYSTEMS: A review of systems was performed with positives and pertinent negatives listed in the history of present illness. All other systems were reviewed and are negative. ALLERGIES: See below MEDICATIONS: See below PMH: See below PHYSICAL EXAM: VITALS: Vitals are noted on the nurse's note and reviewed by myself. Vital signs stable. GENERAL: 54-year-old female, in no acute distress, nondiaphoretic, well- developed well-nourished. SKIN: The skin was without rashes, erythema, edema, or bruising. HEAD: Normocephalic atraumatic. HEART: Regular rate and rhythm without murmurs gallops or rubs. LUNGS: Clear to auscultation bilaterally without wheezes, rales or rhonchi. No retractions or accessory muscle use. ABDOMEN: Positive bowel sounds x 4. Soft, TTP LUQ, epigastrium. Guarding present. NEURO: Patient was alert and oriented to person place and time. No focal neurological deficits. MEDICAL DECISION MAKING: The patient is a pleasant, 54-year-old female who arrives to the emergency department for evaluation of the above-stated complaint. Initial workup was performed in triage including a saline lock, CBC, CMP, lipase, and urinalysis. CBC shows no look cytosis, with a stable hemoglobin and hematocrit. CMP shows an elevated alkaline phosphatase at 117. Lipase 75. Urinalysis shows trace ketones, negative nitrites, negative leukocyte esterase. The patient does report she is currently being treated with Macrobid for a UTI. CT imaging of the abdomen and pelvis with IV contrast was obtained which shows stable dilatation of the common bile duct measuring up to 1.2 cm and a new intrahepatic biliary dilatation with small air in hepatic segment 4 likely pneumobilia. MRCP is suggested by the radiologist. MRCP imaging was obtained which shows common hepatic duct is dilated measuring 13 mm proximal to the cystic duct remnant. This is increased in size from previous MRCP imaging. Common bile duct remains dilated to the ampulla. No choledocholithiasis is noted. No significant intrahepatic biliary dilatation. Concern for normal adaptive ectasia/reservoir effect following cholecystectomy or represent developing stricture of the ampulla. The patient was provided 1 L normal saline, 3 doses of 4 mg of IV morphine, and 1 dose of 4 mg of IV Zofran. The patient will require admission for pain control, as well as further evaluation from gastroenterology. I spoke with Dr. Uribe, who agreed to consult on the patient. Dr. Uribe stated in the absence of positive lab findings, the patient likely will require EUS however not emergently. Dr. Kierra Douglass [facility] agreed to accept the patient under her care for pain control and further evaluation. Please refer to her documentation for further patient workup and care. DIFFERENTIAL DIAGNOSIS: Appendicitis, ovarian cyst, ovarian torsion, ectopic , TOA, PID, infections, diverticulitis, UTI, obstruction, mesenteric ischemia, aortic pathology, inflammatory bowel disease, renal colic, PUD, pancreatitis, biliary pathology, hernia, volvulus, constipation, as well as other pathologies. The chart was completed utilizing [employer] Speech voice recognition software. Grammatical errors, random word insertions, pronoun errors, and incomplete sentences are an occasional consequence of this system due to software limitations, ambient noise, and hardware issues. Any formal questions or concerns about the content, text, or information contained within the body of this dictation should be directly addressed to the physician for clarification. Past Med/Surg History Problem List (Updated 05/23/24 @ 02:44 by ARGELIA Carrillo) Vaginal dryness Menopause Intractable epigastric abdominal pain (Acute) Transaminitis Intractable abdominal pain (Acute) Nausea (Acute) Chronic recurrent pancreatitis (Acute) Constipation Hyponatremia Nausea vomiting and diarrhea (Acute) Elevated LFTs (Acute) UTI (urinary tract infection) (Acute) Chest pain (Acute) H/O abdominal surgery (10/27/21) Laparoscopic Washout S/P Laparoscopic Cholecystectomy(Not Applicable) - Sukumar Wood DO Post-operative haemorrhage Postoperative anemia S/P laparoscopic cholecystectomy History of pancreatitis Small bowel obstruction Encounter for pre-operative examination Enteritis Vomiting (Acute) Abdominal pain (Acute) Volvulus of small intestine (Acute) Acute pain Nausea & vomiting (Acute) Abdominal pain (Acute) Acute pancreatitis (Acute) Bleeding disorder Anemia Pelvic pain Encounter for pre-operative examination Hematuria Acute right flank pain (Acute) Urinary retention Urge and stress incontinence Disc degeneration, lumbar Cervical radiculopathy GOOD ROM PER PT NEL (generalized anxiety disorder) (Chronic) MDD (major depressive disorder) Migraine Medical History Urge and stress incontinence Urinary retention MDD (major depressive disorder) NEL (generalized anxiety disorder) Chronic recurrent pancreatitis most recent spring 2022, currently taking creon w/ all meals Hx of migraines Osteoarthritis Peripheral neuropathy Cervical disc herniation (02/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 TOTAL OF 3 FUSIONS ([employer]). LIMITED RANGE TO LEFT. HAS BEEN INTUBATED SINCE. Cervical Arthroplasty C4-C5 02/18/14: MAC #3, ETT #7.0, Grade 1 View, Smooth intubation on 1st attempt Hx of abdominal surgery (10/25/21) p Diagnostic Laparoscopy with Pelvic Washings(Not Applicable) - Sukumar Wood DO s Laparoscopic Cholecystectomy - Sukumar Wood DO H/O wrist surgery right wrist, ganglion cyst removed History of mandibular surgery for TMJ; ROM "is good" H/O hand surgery repair of hand injury due to a dog bite Hx of cystoscopy (~08/15/20) TURBT with stent placement [facility] S/P ureteral stent placement History of esophagogastroduodenoscopy (EGD) History of robot-assisted laparoscopic hysterectomy History of breast biopsy x3, benign Hx of lumpectomy LEFT (BENIGN) S/P hardware removal CERVICAL History of cystoscopy duplicate Family History Father Cardiac disorder Malignant neoplasm of colon Prostate cancer Colorectal cancer Aunt Breast cancer Denies family history of Ovarian cancer Social History Smoking Status: Never smoker Second Hand Exposure: No; Do You Dip or Chew Tobacco: No; Hx Alcohol Use: No Hx Substance Use: No Preferred Language: Yi Communication Ability: Effective Visual Impairment: No Limitations Cellar Pumper Required: No Beliefs That Will Affect Care: None marital status: Current Living Situation: Spouse Current Living Situation Comment: at home How many Children do You have: 2 Feels Safe at Home: Yes Assistive Devices: Contacts and Glasses Allergies Allergies Allergy/AdvReac Type Severity Reaction Status Date / Time rizatriptan Allergy Severe Difficulty Verified 11/15/23 13:30 Breathing benzoin Allergy Intermediate USED TO Verified 11/15/23 13:30 PUT UNDER STERI STRIPS TO KEEP THEM ON -- BLISTERS tramadol AdvReac Intermediate N/V Verified 11/15/23 13:30 Home Meds Home Medications Medication Instructions Recorded Confirmed clonazepam 1 mg tablet (Klonopin) 1 mg PO BID PRN Anxiety 02/10/18 05/23/24 bupropion HCl 150 mg 24 hr tablet, 300 mg PO QAM 09/19/19 05/23/24 extended release (Wellbutrin XL) gabapentin 400 mg capsule 1,600 mg PO 2XD 06/26/20 05/23/24 buspirone 10 mg tablet 20 mg PO BID 06/21/22 05/23/24 vjcede-[id number]-[id number] 1 cap PO 3XD 09/24/23 05/23/24 24,000-76,000-120,000 unit capsule,delayed rel (Creon) oxycodone-acetaminophen 7.5 mg-325 1 tab PO Q4H PRN Pain 09/24/23 05/23/24 mg tablet (Percocet) montelukast 10 mg tablet 10 mg PO DAILY PRN Allergy Symptoms 11/15/23 05/23/24 fluoxetine 20 mg capsule 20 mg PO DAILY 05/23/24 05/23/24 nitrofurantoin 1 cap PO 2XD 05/23/24 05/23/24 monohydrate/macrocrystals 100 mg capsule (Macrobid) topiramate 50 mg tablet (Topamax) 25 mg PO 2XD 05/23/24 05/23/24 Results & Data (ED) Vital Signs Vital Signs - 24 hr 05/22/24 13:49 05/22/24 16:26 05/22/24 16:27 Temperature 37.0 C Temperature Source Temporal Artery Scan Pulse Rate 110 H 88 90 Pulse Rate from SpO2 Sensor 90 Respiratory Rate 22 16 Blood Pressure 130/89 Blood Pressure Mean 102 Pulse Oximetry 99 99 Oxygen Delivery Method Room Air Sepsis Recent Fever Within 48 Hours No Sepsis New/Unexplained Change in Mental Status No Sepsis Action Taken by Nursing Adv Provider Notified 05/22/24 16:42 05/22/24 18:09 05/22/24 18:21 Temperature Temperature Source Pulse Rate 83 80 Pulse Rate from SpO2 Sensor 84 80 Respiratory Rate 17 16 Blood Pressure 107/77 135/80 143/76 H Blood Pressure Mean 87 98 115 Pulse Oximetry 98 100 Oxygen Delivery Method Sepsis Recent Fever Within 48 Hours Sepsis New/Unexplained Change in Mental Status Sepsis Action Taken by Nursing 05/22/24 18:39 05/22/24 19:03 05/22/24 19:24 Temperature Temperature Source Pulse Rate 82 81 78 Pulse Rate from SpO2 Sensor 83 81 79 Respiratory Rate 19 13 22 Blood Pressure 122/63 157/99 H 125/75 Blood Pressure Mean 82 118 91 Pulse Oximetry 100 99 98 Oxygen Delivery Method Room Air Room Air Sepsis Recent Fever Within 48 Hours Sepsis New/Unexplained Change in Mental Status Sepsis Action Taken by Nursing 05/22/24 19:26 05/22/24 20:34 05/22/24 20:36 Temperature Temperature Source Pulse Rate 77 83 77 Pulse Rate from SpO2 Sensor 77 76 Respiratory Rate 18 16 Blood Pressure 125/75 119/76 Blood Pressure Mean 91 90 Pulse Oximetry 97 97 Oxygen Delivery Method Room Air Room Air Sepsis Recent Fever Within 48 Hours Sepsis New/Unexplained Change in Mental Status Sepsis Action Taken by Nursing 05/22/24 21:00 05/22/24 21:33 05/22/24 21:51 Temperature Temperature Source Pulse Rate 77 83 85 Pulse Rate from SpO2 Sensor 78 82 85 Respiratory Rate 15 20 34 H Blood Pressure 133/69 112/59 L Blood Pressure Mean 90 76 Pulse Oximetry 94 96 97 Oxygen Delivery Method Room Air Room Air Sepsis Recent Fever Within 48 Hours Sepsis New/Unexplained Change in Mental Status Sepsis Action Taken by Nursing 05/22/24 22:01 05/22/24 22:06 05/22/24 22:30 Temperature Temperature Source Pulse Rate 85 89 Pulse Rate from SpO2 Sensor 86 89 Respiratory Rate 24 17 Blood Pressure 128/70 174/95 H Blood Pressure Mean 107 121 Pulse Oximetry 96 96 Oxygen Delivery Method Room Air Sepsis Recent Fever Within 48 Hours Sepsis New/Unexplained Change in Mental Status Sepsis Action Taken by Nursing 05/22/24 22:39 05/22/24 22:59 05/22/24 23:00 Temperature Temperature Source Pulse Rate 80 77 74 Pulse Rate from SpO2 Sensor 80 77 75 Respiratory Rate 15 16 17 Blood Pressure 135/77 133/72 Blood Pressure Mean 96 92 Pulse Oximetry 97 97 97 Oxygen Delivery Method Room Air Room Air Sepsis Recent Fever Within 48 Hours Sepsis New/Unexplained Change in Mental Status Sepsis Action Taken by Nursing 05/22/24 23:30 05/23/24 00:00 05/23/24 00:30 Temperature Temperature Source Pulse Rate 80 82 78 Pulse Rate from SpO2 Sensor 79 81 79 Respiratory Rate 13 18 13 Blood Pressure 133/77 135/77 Blood Pressure Mean 95 96 Pulse Oximetry 96 96 96 Oxygen Delivery Method Room Air Room Air Room Air Sepsis Recent Fever Within 48 Hours Sepsis New/Unexplained Change in Mental Status Sepsis Action Taken by Nursing 05/23/24 00:37 Temperature Temperature Source Pulse Rate 74 Pulse Rate from SpO2 Sensor Respiratory Rate Blood Pressure Blood Pressure Mean Pulse Oximetry Oxygen Delivery Method Sepsis Recent Fever Within 48 Hours Sepsis New/Unexplained Change in Mental Status Sepsis Action Taken by [facility] Medications Current Medication List: was personally reviewed by me Laboratory Data Attestation: I reviewed the patient's lab results. 05/22/24 14:20 05/22/24 14:20 Lab Results 05/22/24 05/22/24 Range/Units 14:20 18:18 WBC 7.26 (4.8-10.8) K/ul RBC 4.39 (4.20-5.40) M/uL Hgb 13.7 (12.0-16.0) g/dl Hct 41.0 (37.0-47.0) % MCV 93.4 (80.0-100.0) fL MCH 31.2 (25.0-34.0) pg MCHC 33.4 (32.0-36.0) g/dL RDW Std Deviation 43.4 (36.4-46.3) fL RDW Coeff of Angelique 12.5 (11.5-14.5) % Plt Count 385 (130-400) K/uL MPV 9.8 (9.4-12.4) fL Immature Gran % (Auto) 0.3 % Neut % (Auto) 58.3 % Lymph % (Auto) 30.7 % Cross % (Auto) 5.4 % Eos % (Auto) 4.1 % Baso % (Auto) 1.2 % Neut # (Auto) 4.23 (1.40-6.50) K/uL Lymph # (Auto) 2.23 (1.20-3.40) K/uL Cross # (Auto) 0.39 (0.11-0.59) K/uL Eos # (Auto) 0.30 (0.00-0.50) K/uL Baso # (Auto) 0.09 (0.00-0.20) K/uL Immature Gran # (Auto) 0.02 (0.01-0.20) K/uL Sodium 142 (136-145) mmol/L Potassium 4.2 (3.5-5.1) mmol/L Chloride 110 H (98-107) mmol/L Carbon Dioxide 23 (21-32) mmol/L Anion Gap 9 (3-11) BUN 17 (6-23) mg/dl Creatinine 0.82 (0.6-1.2) mg/dl Est Cr Clr Drug Dosing 79.1 ml/min eGFR 84.95 BUN/Creatinine Ratio 20.7 H (10-20) Glucose 101 H (70-99(Fasting)) mg/dl Calcium 9.6 (8.6-10.3) mg/dl Total Bilirubin 0.6 (0.2-1.0) mg/dl AST 15 (13-39) U/L ALT 14 (7-52) U/L Alkaline Phosphatase 117 H (34-104) U/L Total Protein 7.2 (6.0-8.3) gm/dl Albumin 4.7 (3.4-5.0) gm/dl Globulin 2.5 (2.5-4.0) gm/dl Albumin/Globulin Ratio 1.9 (0.9-2) Lipase 75 (11-82) U/L Urine Color Yellow Urine Appearance Clear (Clear) Urine pH 7.0 (4.5-7.5) Ur Specific [place] 1.044 H (1.000-1.030) Urine Protein Negative (Negative) Urine Glucose (UA) Negative (Negative) Urine Ketones Trace H (Negative) Urine Blood Negative (Negative) Urine Nitrite Negative (Negative) Urine Bilirubin Negative (Negative) Urine Urobilinogen Negative (Negative) Ur Leukocyte Esterase Negative (Negative) Administered Medications Lactated Ringer's (Lr) 1,000 mls @ 80 mls/hr IV .[id number] STA Stop: 05/23/24 14:29 Last Admin: 05/23/24 02:10 Dose: 80 mls/hr Documented By: BRADLY Discontinued Medications Sodium Chloride (Nss) 1,000 mls @ 999 mls/hr IV .Q1H1M ONE Stop: 05/22/24 17:20 Last Infusion: 05/22/24 18:15 Dose: Infused Documented By: Admin: 05/22/24 16:43 Dose: 999 mls/hr Documented By: VAMSI Sodium Chloride (Nss) 1,000 mls @ 999 mls/hr IV .Q1H1M ONE Stop: 05/22/24 20:19 Last Infusion: 05/22/24 21:01 Dose: Infused Documented By: Admin: 05/22/24 19:25 Dose: 999 mls/hr Documented By: BRADLY Ioversol (Optiray 320 100ml) 90 ml IV ONCE ONE Stop: 05/22/24 17:08 Last Admin: 05/22/24 17:07 Dose: 90 ml Documented By: LEIA Lorazepam (Lorazepam 2 Mg/1 Ml Vial) 0.5 mg IV NOW STA Stop: 05/22/24 19:14 Last Admin: 05/22/24 19:24 Dose: 0.5 mg Documented By: BRADLY Morphine Sulfate (Morphine Sulfate 4 Mg/Ml 1 Ml Carp\\Vial) 4 mg IV NOW STA Stop: 05/22/24 16:21 Last Admin: 05/22/24 16:44 Dose: 4 mg Documented By: VAMSI Morphine Sulfate (Morphine Sulfate 4 Mg/Ml 1 Ml Carp\\Vial) 4 mg IV NOW STA Stop: 05/22/24 18:39 Last Admin: 05/22/24 18:44 Dose: 4 mg Documented By: ELIZABETH Morphine Sulfate (Morphine Sulfate 4 Mg/Ml 1 Ml Carp\\Vial) 4 mg IV NOW STA Stop: 05/22/24 22:46 Last Admin: 05/22/24 22:58 Dose: 4 mg Documented By: BRADLY Ondansetron HCl (Ondansetron Inj 2 Mg/Ml 2 Ml Vial) 4 mg IV NOW STA Stop: 05/22/24 16:21 Last Admin: 05/22/24 16:35 Dose: 4 mg Documented By: VAMSI Imaging Data Attestation: I personally reviewed and interpreted this imaging study as follows: Radiologist's Impression: Abdomen/Pelvis CT 05/22/24 15:52 EXAM: CT abd pelvis IV con only CLINICAL HISTORY: N/V/D; abdominal pain. TECHNIQUE: CT of the abdomen and pelvis was performed with contrast, with the following protocol: axial images with, and reconstructed coronal and sagittal images. One of the following dose reduction techniques was utilized for this exam: Automated exposure control, adjustment of the mA and/or kV according to patient size, and use of iterative reconstruction. COMPARISON: Comparison is made with 07/16/2022. FINDINGS: Abdomen: Liver: Normal in shape, and density. 17 cm enlarged in size. No focal lesions, cysts, or masses were identified. Hepatic vasculature is unremarkable. The intrahepatic biliary ducts are dilated. Small air focus at hepatic segment IV, likely intrabiliary. Gallbladder and Biliary System: The gallbladder is surgically removed. The CBD is dilated measuring up to 1.2 cm. Pancreas: Pancreatic head, body, and tail are visualized and appear normal in size and density. No pancreatic masses or calcifications were noted. The pancreatic duct is not dilated. Spleen: Normal in size, shape, and density. No splenic lesions or masses were identified. Appendix: The appendix is normal in size without leidy appendiceal fat stranding, and without an appendicolith. No evidence of appendiceal abscess or perforation. Kidneys and Adrenal Glands: Both kidneys are normal in size, shape, and position. Cortical thickness is within normal limits. Small cortical cyst in the left. No renal calculi or hydronephrosis. Adrenal glands are unremarkable with no evidence of masses or hyperplasia. Pelvis: Urinary Bladder: Normal in contour and wall thickness. No intraluminal lesions identified., however air specks are not could iatrogenic Uterus: Not visualized correlate with surgery Peritoneal and Retroperitoneal Structures: No free fluid or abnormal fluid collections were identified within the abdomen or pelvis. No lymphadenopathy was noted. Mild congested apperance of the mesentery. Bowel: The visualized bowel loops are normal in caliber and appearance. No evidence of bowel obstruction or wall thickening. Bones and Soft Tissues: The visualized bones show degnerative changes No fractures or abnormal masses were identified. IMPRESSION: 1. Stable dilatation of the common bile duct measuring up 1.2 cm and new intrahepatic biliary dilatation with small air in hepatic segment IV, likely pneumobilia. Suggest clinical correlation and MRCP if clinically warranted. 2. Mild hepatomegaly. 3. Small left renal cortical cyst. Electronically signed by Jovani Guzman 05-22-2024 6:29 PM Cholangiopancreatography MRI 05/22/24 18:45 Exam(s): MRI MRCP EXAM: MR Abdomen Without Intravenous Contrast, MRCP Protocol CLINICAL HISTORY: cbd 1.2cm dilitation.. TECHNIQUE: Multiplanar magnetic resonance images of the abdomen without intravenous contrast using MRCP protocol. COMPARISON: MRCP 07/16/2022; CT abdomen and pelvis with contrast performed at 1703 hrs. FINDINGS: Bile ducts: The common hepatic duct is dilated measuring 13 mm proximal to the cystic duct remnant. This is increased from 10 mm on the previous MRCP examination. The common bile duct remains dilated to the ampulla. No choledocholithiasis noted. No significant intrahepatic biliary dilatation. Gallbladder: Status post cholecystectomy. Liver: Unremarkable. Pancreas: Unremarkable. No ductal dilation. Spleen: Unremarkable. No splenomegaly. Adrenals: Unremarkable. No mass. Kidneys and ureters: Unremarkable. No hydronephrosis. Stomach and bowel: Unremarkable. No obstruction. IMPRESSION: The common hepatic duct is dilated measuring 13 mm proximal to the cystic duct remnant. This is increased from 10 mm on the previous MRCP examination. The common bile duct remains dilated to the ampulla. No choledocholithiasis noted. No significant intrahepatic biliary dilatation. Correlate with bilirubin levels as this could represent normal adaptive ectasia/reservoir effect following cholecystectomy or represent developing stricture at the ampulla. If there is laboratory findings concerning for biliary stasis, manometric evaluation of the ampulla may be appropriate. Electronically signed by: Sukumar Watkins MD 05/22/24 23:05 PM Discharge Plan Visit Data Chief Complaint: Abdominal Pain Stated Complaint: ABDOMINAL PAIN ED Provider: Cheryl Hale ED Midlevel Provider: Iris Granados Discharge Problem: Abdominal pain Patient Disposition: Admitted As Inpatient Discharge Instructions Interventions: ED Discharge Assessment Last Done: 05/23/24 02:13
[2024-05-22] MEDS: ONDANSETRON INJ 2 MG/ML 2 ML VIAL IV STA (16:35)
[2024-05-22] MEDS: SODIUM CHLORIDE 0.9% 1,000 ML IV ONE ×2 (16:43→19:25)
[2024-05-22] MEDS: MoRPHine SULFATE 4 MG/ML 1 ML CARP\\VIAL IV STA ×3 (16:44→22:58)
[2024-05-22] MEDS: OPTIRAY 320 100ml IV ONE (17:07)
--- NOTE | 2024-05-22 18:29 | CT Scan Report ---
EXAM: CT abd pelvis IV con only CLINICAL HISTORY: N/V/D; abdominal pain. TECHNIQUE: CT of the abdomen and pelvis was performed with contrast, with the following protocol: axial images with, and reconstructed coronal and sagittal images. One of the following dose reduction techniques was utilized for this exam: Automated exposure control, adjustment of the mA and/or kV according to patient size, and use of iterative reconstruction. COMPARISON: Comparison is made with 07/16/2022. FINDINGS: Abdomen: Liver: Normal in shape, and density. 17 cm enlarged in size. No focal lesions, cysts, or masses were identified. Hepatic vasculature is unremarkable. The intrahepatic biliary ducts are dilated. Small air focus at hepatic segment IV, likely intrabiliary. Gallbladder and Biliary System: The gallbladder is surgically removed. The CBD is dilated measuring up to 1.2 cm. Pancreas: Pancreatic head, body, and tail are visualized and appear normal in size and density. No pancreatic masses or calcifications were noted. The pancreatic duct is not dilated. Spleen: Normal in size, shape, and density. No splenic lesions or masses were identified. Appendix: The appendix is normal in size without leidy appendiceal fat stranding, and without an appendicolith. No evidence of appendiceal abscess or perforation. Kidneys and Adrenal Glands: Both kidneys are normal in size, shape, and position. Cortical thickness is within normal limits. Small cortical cyst in the left. No renal calculi or hydronephrosis. Adrenal glands are unremarkable with no evidence of masses or hyperplasia. Pelvis: Urinary Bladder: Normal in contour and wall thickness. No intraluminal lesions identified., however air specks are not could iatrogenic Uterus: Not visualized correlate with surgery Peritoneal and Retroperitoneal Structures: No free fluid or abnormal fluid collections were identified within the abdomen or pelvis. No lymphadenopathy was noted. Mild congested apperance of the mesentery. Bowel: The visualized bowel loops are normal in caliber and appearance. No evidence of bowel obstruction or wall thickening. Bones and Soft Tissues: The visualized bones show degnerative changes No fractures or abnormal masses were identified. IMPRESSION: 1. Stable dilatation of the common bile duct measuring up 1.2 cm and new intrahepatic biliary dilatation with small air in hepatic segment IV, likely pneumobilia. Suggest clinical correlation and MRCP if clinically warranted. 2. Mild hepatomegaly. 3. Small left renal cortical cyst. Electronically signed by Jovani Guzman 05-22-2024 6:29 PM
[2024-05-22 18:42] LABS: Appearance Urine Clear (Clear); Bilirubin Urine Negative (Negative); Blood Urine Negative (Negative); Color Urine Yellow; Glucose Urine UA Negative (Negative); Ketones Urine Trace (Negative); Leukocyte Esterase Urine Negative (Negative); Nitrite Urine Negative (Negative); Protein Urine Negative (Negative); Specific Gravity Urine 1.044 (1.000-1.030); Urobilinogen Urine Negative (Negative)
--- NOTE | 2024-05-22 18:50 | Emergency Department Note ---
ED Visit Note I was consulted by the Advanced Practice Provider, ARGELIA Clarke. I performed a substantive portion of the visit. This includes aspects of: History: Patient is a 54-year-old female presenting for abdominal pain. Patient reports she has a history of pancreatitis and states that her abdominal pain seems similar to that. She states the pain began 5 to 6 days ago and locates the pain in her left upper quadrant and epigastric region. She reports nausea, vomiting and diarrhea. Denies any fevers. MDM: - Laboratory workup interpreted by myself showed normal WBC; stable electrolytes; normal lipase - UA negative for infection - CT abdomen/pelvis with IV contrast showed dilatation of the common bile duct measuring 1.2 cm with intrahepatic biliary dilatation and small air in the hepatic segment concerning for pneumobilia. MRCP was recommended by radiology. - MRCP showed a dilated hepatic duct measuring 13 mm, which is increased from 10 mm from her previous MRCP. The common bile duct remains dilated at the ampulla. - GI physician school transportation director, Dr. Hodges, consulted. - Patient to be admitted to hospitalist service for control and further evaluation. .
[2024-05-22] MEDS: LORazepam 2 MG/1 ML VIAL IV STA (19:24)
--- OUTSIDE RECORDS SUMMARY | 2024-05-22 20:16 | External Medical Summary | Continuity of Care Document ---
Author Name Unknown Organization [address] Address [address] [place] [phone] Care Team Providers Care Fixed Income Director Name Role Phone Meghan Osullivan Primary Care Physician [phone] [id number] Date(s): 03/24/24 - 03/24/[address] [facility] [address] [facility], [address] [place] [address] [phone] Encounter Diagnosis Mood swings(Discharge Diagnosis) - 03/24/24 Discharge Disposition: Home or Self Care Attending Physician: ARGELIA Osullivan Katy Marie Referring Physician: ARGELIA Osullivan Katy Marie Allergies, Adverse Reactions, Alerts Substance Criticality Severity Reaction Reaction Severity Status rizatriptan difficulty breathing Active Benzoin Unable to assess criticality Severe Rash Active Seasonale (oral contraceptive) sneezing Active Adhesive bandage 1 blisters Itching Active Bee stings Rash Active traMADol Active 1had reaction to spray adhesive only Assessment and Plan Extracted from: Title:Office Visit Note Author:ARGELIA Osullivan Kat y Marie Date:03/24/24 1.Mood swings Problem isChronic - not controlled Goal:maintenance Plan:doing well with addition of topiramate. Thoughnotcontrolled.Goal of gradual increase to 200-300mg/day. Will increase to 75mg BID RTC 4 mo or sooner PRN Patient verbalizes understanding and agrees with kareem well asreturn precautions. Immunizations Given and Recorded Vaccine Date Status Refusal Reason tetanus/diphtheria/pertuss, acel (Tdap) 1 02/14/23 Recorded tetanus/diphtheria/pertuss, acel (Tdap) 2 07/04/17 Recorded tetanus/diphtheria/pertuss, acel (Tdap) 3 08/03/10 Recorded 1Result Comment: 2023-03-12: Historical information-source unspecified 2Result Comment: 2021-01-17: Historical information-source unspecified 3Result Comment: 2021-01-17: Historical information-source unspecified Medications acetaminophen-hydrocodone 325 mg-5 mg oral tablet Start: 03/25/24 6:24:00 PM EST, 1 tab, PO, bid, Disp# 30 tab, Refills: 0, Skip if feeling drowsy., Pharmacy: [id number], Earliest Fill Date: 03/25/24 Start Date: 03/25/24 Stop Date: 04/25/24 Status: Ordered acetaminophen-oxycodone 325 mg-7.5 mg oral tablet Start: 03/25/24 6:23:00 PM EST, 1 tab, PO, q6h, Disp# 120 tab, Refills: 0, skip if feeling drowsy.,PRN: as needed for pain, Pharmacy: [id number], Earliest Fill Date: 04/29/24 Start Date: 03/25/24 Stop Date: 05/29/24 Status: Ordered buPROPion 300 mg/24 hours (XL) oral tablet, extended release Start: 12/02/23 12:51:00 PM EDT, 1 tab, PO, Daily, Disp# 30 tab, Refills: 6, Pharmacy: [id number] Start Date: 12/02/23 Status: Ordered busPIRone 10 mg oral tablet Start: 11/04/23 3:02:00 PM EDT, 2 tab, PO, bid, Disp# 120 tab, Refills: 5, Pharmacy: [id number] Start Date: 11/04/23 Status: Ordered celecoxib 200 mg oral capsule Start: 01/13/24 10:50:00 AM EDT, See Instructions, Disp# 50 cap, Refills: 0, TAKE 1 CAPSULE BY MOUTHTWICE DAILY FOR THE FIRST 2 WEEKS, THEN TAKE 1 CAPSULE BY MOUTH DAILY NEEDED FOR PAIN (MAY TAKE CONTENTS OF CAPSULE AND MIX WITH SOFT FOODS SUCH APPLESAUCE.), Pharmacy: [id number] Start Date: 01/13/24 Status: Ordered clonazePAM 1 mg oral tablet Start: 03/11/24 9:14:00 AM EST, 1 tab, PO, bid, Disp# 60 tab, Refills: 0, Note to Pharmacy: PDMP verified, Pharmacy: [id number] Start Date: 03/11/24 Stop Date: 04/10/24 Status: Ordered Creon 36,000 units oral delayed release capsule Start: 01/31/24 12:01:00 PM EDT, 1 cap, PO, tid, Disp# 270 cap, Refills: 3, Note to Pharmacy: Pam Paulino, Pharmacy: [id number] Start Date: 01/31/24 Stop Date: 01/25/25 Status: Ordered gabapentin 400 mg oral capsule Start: 10/16/23 1:31:00 PM EDT, See Instructions, Disp# 120 cap, Refills: 5, TAKE 1 CAPSULE BY MOUTH FOUR TIMES DAILY, Pharmacy: [id number] Start Date: 10/16/23 Status: Ordered lidocaine 5% topical ointment Start: 01/14/24 10:57:00 AM EDT, 1 appl, topical, qid, Disp# 50 g, Refills: 2, wash hands thoroughlyafter application, Pharmacy: [id number] Start Date: 01/14/24 Stop Date: 04/13/24 Status: Ordered Macrobid 100 mg oral capsule Start: 02/28/24 5:13:00 PM EST, 1 cap, PO, bid, Disp# 20 cap, Pharmacy: [id number] Start Date: 02/28/24 Stop Date: 03/09/24 Status: Ordered methenamine hippurate 1 g oral tablet Start: 09/18/23 8:15:00 AM EDT, 1 tab, PO, bid, Disp# 180 tab, Refills: 0, for uti prophylaxis., Pharmacy: [id number] Start Date: 09/18/23 Status: Ordered montelukast 10 mg oral tablet Start: 11/14/23 1:27:00 PM EDT, 1 tab, PO, qPM, Disp# 30 tab, Refills: 3, Pharmacy: [id number] Start Date: 11/14/23 Stop Date: 03/13/24 Status: Ordered omeprazole 20 mg oral delayed release capsule Start: 03/18/23 3:35:00 PM EST, 1 cap, PO, bid, Disp# 60 cap, Refills: 2, Pharmacy: [id number] Start Date: 03/18/23 Status: Ordered ondansetron 4 mg oral tablet See Instructions, Disp# 90 tab, Refills: 1, TAKE 1 TABLET TWICE A DAY NEEDED FOR NAUSEA AND VOMITING, Pharmacy: [facility] Start Date: 08/01/21 Status: Ordered PROzac 20 mg oral capsule Start: 01/09/24 9:50:00 AM EDT, 1 cap, PO, Daily, Disp# 30 cap, Refills: 4, Pharmacy: [id number] Start Date: 01/09/24 Stop Date: 06/07/24 Status: Ordered Suprep Bowel Prep Kit 1.6 g-3.13 g-17.5 g/177 mL oral liquid Start: 02/20/24 3:16:00 PM EST, See Instructions, Disp# 354 mL, Refills: 0, Follow instructions given to [facility] by [facility] Pharmacy: [id number] Start Date: 02/20/24 Status: Ordered Topamax 50 mg oral tablet Start: 03/24/24 11:39:00 AM EST, 1.5 tab, PO, bid, Disp# 270 tab, Refills: 3, Pharmacy: [id number] Start Date: 03/24/24 Stop Date: 03/19/25 Status: Ordered Zofran 4 mg oral tablet Start: 02/20/24 3:16:00 PM EST, See Instructions, Disp# 3 tab, Refills: 0, Take one tablet by mouth 30 minutes prior to taking prep solution., Pharmacy: [id number] Start Date: 02/20/24 Status: Ordered Mental Status 03/24/24 Barriers to Learning one year None evide nt Mandatory Health Literacy Documentation Yes Health Literacy Communication Barriers N ever Primary Language Yi Problem List Condition Confirmation Course Effective Dates Status H ealth Status Informant Abdominal hyperesthesia Confirmed Active Abdominal pain Confirmed Active Recurrent acute pancreatitis Confirmed Active Pollen allergies Confirmed Active Ankle pain Confirmed Active Anxiety Confirmed Active 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 Cervical disc herniation Confirmed Active Failed neck syndrome Confirmed Active Cervical radiculopathy Confirmed Active Cervical spondylosis Confirmed Active Changing skin lesion Confirmed Active 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 Diarrhea Confirmed Active Disorder of hip Confirmed Active Localized swelling, mass and lump, lower limb Confirmed Active Controlled substance agreement signed Confirmed Active Tendinopathy of right gluteus medius Confirmed Active Encounter for follow-up examination after completed treatment for cancer Confirmed Active Right hip pain Confirmed Active History of cholecystectomy Confirmed Active History of basal cell carcinoma of skin Confirmed Active Visceral hyperalgesia Confirmed Active Lentigines Confirmed Active Lumbar facet joint pain Confirmed Active Lumbar hernia Confirmed Active Lumbar radiculopathy Confirmed Active Lumbar spondylosis Confirmed Active Mood swings Confirmed Active Muscle pain Confirmed Active Chronic radicular low back pain Confirmed Active Open wound Confirmed Active Multiple drug resistant organism (MDRO) culture positive 1 Confirmed 01/22/23 Active Sinus pain Confirmed Active Pain in left lucas Confirmed Active Pancreatic insufficiency Confirmed Active Pancreatitis Confirmed Active Pilomatrixoma Confirmed Active Radicular pain of right lower extremity Confirmed Active Tear of peroneal tendon of left foot Confirmed Active Seasonal allergies Confirmed Active Seborrheic keratoses Confirmed Active Sinusitis Confirmed Active Myofascial pain Confirmed Active S/P orthopedic surgery, follow-up exam Confirmed Active Constipation due to opioid therapy Confirmed Active URI with cough and congestion Confirmed Active Emesis Confirmed Active Weight disorder Confirmed Active Wheeze Confirmed Active Urine Culture >100 THOUSAND COLONIES/ML KLEBSIELLA PNEUMONIAE This organism produces an extended-spectrum beta-lactamase (ESBL) Diagnosis Diagnosis Type Effective Dates Health Status Clini kolby Service Informant Mood swings Discharge Diagnosis 03/24/24 Non-Specified Procedures Procedure Date Related Diagnosis Body Site Status Colonoscopy 1, 2 03/04/24 Complete d EGD - esophagogastroduodenos copy 3, 4, 5 03/04/24 Completed Shave biopsy 6 01/16/24 Completed Lumbar epidural steroid injection 01/13/24 Completed LT peroneal tendon repair pe roneus brevis 10/04/23 Completed Nerve block 7 07/15/23 Completed Trigger point infiltration o f local anesthetic and steroid 07/15/23 Completed Trigger point infiltration o f local anesthetic and steroid 04/17/23 Completed Trigger point infiltration o f local anesthetic and steroid 02/12/23 Completed Punch biopsy 8 01/14/23 Completed MRCP - Magnetic resonance cholangiopancreatography 9 07/16/22 Compl eted MRI of thoracic spine 10 07/16/[address] of abdomen and pelvis 11 07/15/22 Completed Nerve block 12 02/12/22 Completed Nerve block 13 12/27/[address] of abdomen and pelvis 14 10/27/21 Completed KUB X-ray 15 10/26/21 Completed KUB X-ray 16 10/25/21 Completed Laparoscopic cholecystectomy 10/25/[address] of abdomen and pelvis 17 10/24/21 Completed KUB X-ray 18 10/24/21 Completed US scan of gallbladder 19 10/24/21 Completed Chest x-ray 20 10/14/[address] of abdomen and pelvis 21 10/14/21 Completed ECG (electrocardiography) procedure 22 10/14/21 Completed MRCP - Magnetic resonance cholangiopancreatography 23 10/14/21 Comp leted Chest X-ray 24 10/05/21 Completed Ultrasound scan of gallbladder 25 10/05/21 Completed Epidural steroid injection 26 07/20/21 Completed Colonoscopy 27 05/30/21 Completed Esophagogastroduodenoscopy 28 05/30/21 Completed Trigger point injection 03/23/21 C ompleted MRI of thoracic spine 29 08/20/[address] of abdomen and pelvis wit hout contrast 30 08/19/20 Completed Chest x-ray 31 06/26/[address] angiography of chest with contrast 32 06/26/[address] of head without contrast 33 06/26/[address] of neck with contrast 34 06/26/20 Completed Epidural steroid injection 35 06/24/20 Completed Epidural steroid injection 36 04/18/[address] of abdomen and pelvis wit hout contrast 37 04/01/20 Completed Esophagus, middle third, biopsy 38, 39 01/20/20 Completed Upper GI endoscopy 40 01/20/20 Com pleted Fluoroscopic guidance for in jection of facet joint 41 01/04/20 Completed Lumbar epidural steroid injection 08/26/19 Completed TPI - Trigger point injection 08/26/19 Completed Cervical Epidural Steroid Injection 04/28/19 Completed Electrodesiccation with curettage 04/23/19 Completed Punch biopsy of skin 04/23/19 Comp leted Shave biopsy and cauterization of skin 04/14/19 Completed Epidural steroid injection 02/16/19 Completed Trigger point injection 02/16/19 C ompleted Right C7 / T1 Epidural Stero id Injection 09/15/[address] of abdomen and pelvis 42 08/01/18 Completed Cystoscopy 07/28/18 Completed RT foot x-ray 43 07/18/18 Complete d Epidural steroid injection 44 03/12/18 Completed TPI - Trigger point injection 02/12/18 Completed Bilateral Digital Diagnostic Mammogram Tomosynthesis 45 01/28/18 Completed X-ray of right foot 46 12/27/17 Co mpleted Cervical epidural steroid injection 08/15/17 Completed Injection into bursa 47 08/15/17 C ompleted Fine needle biopsy of breast 48, 49 08/09/17 Completed Mammogram 50, 51 08/09/17 Complete d Mammogram 52 07/22/17 Completed Mammogram 53 07/01/17 Completed Injection into bursa 05/29/17 Comp leted Lesser occipital nerve block 05/29/17 Completed TPI - Trigger point injection 05/29/17 Completed Lumbar epidural steroid injection 03/28/17 Completed Injection into bursa 54 02/14/17 C ompleted Cervical epidural steroid injection 12/11/16 Completed TPI - Trigger point injection 12/11/16 Completed Chest X-ray 55 11/11/[address] of cervical spine 56 11/11/[address] of head 57 11/11/16 Completed Injection of facet joint 06/05/16 Completed TPI - Trigger point injection 06/05/16 Completed Tibia and fibula X-ray 58 10/23/15 Completed MRI of cervical spine 59 06/10/[address] of cervical spine 60 05/11/[address] of cervical spine 61 05/11/[address] of head 62 05/11/[address] of head 63 05/11/15 Completed Shoulder X-ray 64 05/11/15 Complet ed Shoulder X-ray 65 05/11/15 Complet ed Cervical epidural steroid injection 04/18/15 Completed Injection of facet joint usi ng fluoroscopic guidance 03/21/15 Completed Injection into facet joint o f lumbar spine using fluoroscopic guidance 01/21/15 Completed Injection of facet joint 66 08/13/14 Completed Thoracic epidural steroid injection 08/13/14 Completed Injection of facet joint 67 05/24/14 Completed Cervical epidural steroid injection 11/17/13 Completed TPI - Trigger point injection 10/19/13 Completed TPI - Trigger point injection 09/01/13 Completed Injection of facet joint 08/12/13 Completed Injection of facet joint usi ng fluoroscopic guidance 12/19/12 Completed Spinal fusion 04/15/10 Completed Cyst 1989 Completed Breast 69 Completed Cystoscopy with hydrodistens ion and TURBT medium, biopsy and fulguration of bladder lesions 70 Completed Foot and ankle injury Com pleted Hysterectomy Completed Injection 71 Completed Left ankle 72 Completed Lumpectomy Completed Mandibular vestibule Comp leted Neck 73 Completed Spinal fusion Completed Ureteral stent-related symptom Completed 1C) Colon, random biopsy: No significant pathology. 2- The rectum, sigmoid colon, descending colon, splenic flexure, transverse colon, hepatic flexure, ascending colon, cecum and recto-sigmoid colon are normal. Biopsied. 3- Normal esophagus. - Normal stomach. Biopsied. - Normal examined duodenum. Biopsied. 4A) Duodenum, biopsy: No significant pathology. B) Gastric antrum, biopsy: Edema, congestion and epithelial repair compatible with reactive gastropathy- healing erosive gastritis. COMMENT: No Helicobacter pylori organisms are identified on an immunohistochemical stain for H. pylori. 5Followup with your referring doctor 6right sup n-l fold 7right greater and lesser ONB 8and cauterization of skin 9Impression: Cholecystectomy with common bile duct dilation redemonstrated, likely secondary to reservoir effect. No choledocholithiasis identified. 10Impression: No evidence of cord compression, significant neuroforaminal narrowing or ligamentous injury. 11IMPRESSION: 1. No acute or inflammatory process. 2. Aorta and its branch vessels appear adequately patent. 3. No CT evidence of ischemic bowel. 4. Enlarged common bile duct is similar to prior exam and most likely due to reservoir effect. However, there is laboratory evidence of biliary obstruction, consider MRCP. 12Bilateral L3, L4, L5 Diagnostic Medial Branch Block 13Bilateral L3, L4, L5 Diagnostic Medial Branch Block 14Findings are concerning for intraperitoneal hemorrhage in this anemic patient status post cholecystectomy. 151. No acute intra-abdominal abnormality. 2. Evidence for hepatomegaly. 16Nasogastric tube terminates in the mid stomach. 171. Findings are consistent with a small bowel obstruction. A closed loop type obstruction is not excluded and surgical consultation is advised. 2. There is mild mesenteric edema and trace interloop fluid. 3. There is no intraperitoneal free. No pneumatosis intestinalis or portal venous gas is seen and there are no focally thick walled bowel loops identified. 4. Mild intrahepatic biliary ductal dilatation appears increased from 10/14/2021. 5. Peripancreatic infiltration has almost completely resolved as compared to 10/14/2021. This likely represents resolving pancreatitis. The gland enhances throughout with no peripancreatic fluid collection identified. 6. Additional findings as above. 181. No acute intra-abdominal abnormality. 2. Tip of NG tube in the upper body of the stomach. 191. The gallbladder is distended, with no shadowing gallstones identified and no sonographic evidence of acute cholecystitis. 2. Dilatation of the common bile duct is nonspecific but has increased from the 10/05/2021 examination. If there is clinical concern for choledocholithiasis a repeat MRCP could be obtained. 20No acute chest disease. 211. Acute pancreatitis. No peripancreatic fluid collections or necrosis is seen. 2. Hepatic steatosis. 22Vent. Rate : 096 BPM Atrial Rate : 096 BPM P-R Int : 142 ms QRS Dur : 082 ms QT Int : 350 ms P-R-T Axes : 072 084 224 degrees QTc Int : 442 ms Poor data quality, interpretation may be adversely affected Normal sinus rhythm Possible Left atrial enlargement Cannot rule out Anterior infarct , age undetermined Abnormal ECG When compared with ECG of 26-JUN-2020 18:36, ST now depressed in Anterolateral leads Nonspecific T wave abnormality now evident in Inferior leads T wave inversion now evident in Anterolateral leads 231. Limited exam due to patient motion. Pancreatic head/body edema and surrounding fluid are seen compatible with acute pancreatitis. No walled fluid collections are seen. 2. The common bile duct is top normal in diameter. No filling defects are seen to suggest choledocholithiasis. The gallbladder wall is not thickened, acute cholecystitis is unlikely. 24impression: No acute process 25impression: Unremarkable right upper quadrant abdominal ultrasound 26right L5/S1 epidural steroid injection 27COLO external hemorrhoids, redundant colon, repeat colo 10 years. 28EGD normal, antrum erythema bx, 2nd duod nl bx, 29No significant abnormalities. No thoracic cord lesions. No disc herniatsion. No spinal stenosis. 301. Moderate right hydroureteronephrosis of indetermine etiology. Right ureteral stent in place. Mild right perinephric and periureteral infiltration. No urinary calculi. 2. Moderate distention of the bladder. Trace gas within the bladder which is likely related to recent procedure. 3. No bowel obstruction. normal appendix. 31No acute cardiopulmonary abnormality 32No evidence for pulmonary embolus. 33No acute intracranial findings. 341. No acute process within the neck. 2. No cervical lymphadenopathy. No mass. 35right C7-T1 paramedian cervical epidural steroid injection 06A7-N5 paramedian cervical epidural steroid injection 371. Mild right-sided hydroureteronephrosis without obstructin gcalculus or lesion appears similar tothe comparison 2019 exam. 2. No renal or ureteral calculi identified. 3. Hysterectomy 4. No bowel obstruction or bowel wall thickening. Normal appendix. 381. Squamous mucosa with no pathologic alteration. 2. No increased eosinophils identified. 39biopsy letter no significant abnormalities of esophagus, follow up as needed. 40z line regular, 4 cm from incisors. esophageal mucosal changes suggestive of eosinophilic esophagitis. biopsied. normal stomach. normal examined duodenum. normal oropharynx 41Fluoroscopic guidance for injection of facet joint 421. mild nonspecific small bowel enteritis 2. Moderate increase in colonic fecal load suggesting a component of fecal stasis 3. 2 cm right ovarian cyst 43Shows no obvious abnormalities. 44right T1, T2 paramedian pancho and right L5, S1 interlaminar pancho 45Impression: ACR BI RADS CATEGORY 2: Benign There is no mammographic evidence of malignancy in the breasts. Less prominent left breast asymmetry and stable postsurgical changes in the right breast. Recommend return to annual screening mammography schedule, due in June 2018. These results and recommendations were discussed with the patient at the time of the exam. 46i]unremarkable radiographic assessment of the right foot 47right hip 48pathology - Breast, right, needle localized excision: fibrocystic change. Associated pseudoangiomatous stromal hyperplasia. Focal columnar cell change with rare microcalcification 49Needle localization, right breast biopsy. 50Needle localization of the small cluster of indeterminate calcifications in the right upper inner quadrant 51The imaged specimen contains the localized cluster of calcifications 52right breast stereotactic guided biopsy was recommended for a newly visualized 3mm cluster of punctate and amorphous microcalcifications in the upper inner middle one third of the right breast. Effacement of the 8mm nodular asymmetry in the left breast with supplemental tomosythesis images and no suspicious sonographic correlate identified. a benign anechoic simple cyst was seen in the 9:00-10:00 periareolar left breast 53Left breast asymmetry and right breast calcifications, for which additional imaging evaluation is recommended. 54Right greater trochaneric bursa injection. 55Impression: Negative chest 56Impression: No fractures within the cervical spine. Post-op and degenerative change. No acute process. 57Impression: No acute intracranial abnormality. 58Mild pretibial soft tissue swelling. No acute bony process 59Postsurgical and degenerative changes of the cervical spine as discussed 60no acute fractures or subluxations. radiologist reports moderate degenerative changes throughout the cervical spine. 61Degenerative and postoperative change. No acute bony abnormality. 62no acute intracranial hemorrhages or skull fractures 63No acute intracranical findings 64No acute fractures or dislocations. Normal appearing joint spaces and no evidence of soft tissue swelling. 65Negative 66lumbar 67Right L3-4, 4-5 68Cyst removed, right shoulder 69Lumps removed left breast, benign 70With bilateral retrograde pyelogram, right ureteroscopy with dilation and stent placement. 71HOSC- injection neck- LB 72fix ligaments 73Neck surgery in 2009, 2010, 2011 Vital Signs Most recent to oldest [Reference Range]: 1 Patient Weight 67.3 kg (03/24/24 11:29 AM) Temperature [36.5-37.9 DegC] 36.5 DegC (03/24/24 11:29 AM) Blood Pressure 116/72mmHg (03/24/24 11:31 AM) Social History Social History Type Response Smoking Status Never smoked cigaret melonie Sex Sex Representation Female (finding) FCM Outpt Note * ARGELIA Osullivan Katy Marie: PERFORM Event Display: FCM Outpt Note Authored Date: [id number] Chief Complaint 4-6 wk f/u History of Present Illness doing well, has been doing well on the topamax feeling like her anger is maintaining though could use an increase. No SI/HI Review of Systems A total of 10 systems were reviewed. Pertinent positive and negatives addressed in HPI, all other findings are negative. Physical Exam Vitals & Measurements T:36.5C BP:116/72 SpO2:96% WT:67.3kg WT:67.300kg(Dosing) PHQ2 Data(Data Documented on:03/24/2024 11:28) Emotional health assessment NEGATIVE Constitutional: Alert and oriented, No acute distress, Well-appearing, Normal mood and affect Respiratory: Lung sounds are clear, equal chest rise and fall with breathing, no pursed lip breathing Cardiovascular: Heart sounds regular rate and rhythm, without gallop or murmur, no edema HEENT: Normocephalic, atraumatic, conjunctiva are clear, sclera non-icteric Skin: Warm, pink, dry, intact Assessment/Plan 1.Mood swings Problem isChronic - not controlled Goal:maintenance Plan:doing well with addition of topiramate. Thoughnotcontrolled.Goal of gradual increase to 200-300mg/day. Will increase to 75mg BID RTC 4 mo or sooner PRN Patient verbalizes understanding and agrees with kareem well asreturn precautions. Attestation I attest that I have spent44 minutes in care and coordination of this patient. This is inclusive of: previsit: chart review and preparation |[id number]: obtaining HPI, PE, discussing Assessment and Plan, and other pertinent discussions/decisionsr/t care | postvisit: coordination of care, orders, and documentation/paperwork The abovetimedoes not include any procedure time. 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 Constipation due to opioid therapy Controlled substance agreement signed Diarrhea Disorder of hip DJD of shoulder Emesis Encounter for follow-up examination after completed treatment for cancer Failed neck syndrome History of basal cell carcinoma of skin History of cholecystectomy Lentigines Localized swelling, mass and lump, lower limb Lumbar facet joint pain Lumbar hernia Lumbar radiculopathy Lumbar spondylosis Mood swings Multiple drug resistant organism (MDRO) culture positive Muscle pain Myofascial pain Open wound Pain in left lucas Pancreatic insufficiency Pancreatitis Pilomatrixoma Pollen allergies Radicular pain of right lower extremity Recurrent acute pancreatitis Right hip pain S/P orthopedic surgery, follow-up exam Seasonal allergies Seborrheic keratoses Sinus pain Sinusitis Tear of peroneal tendon of left foot Tendinopathy of right gluteus medius URI with cough and congestion Verifies allergies| Status: Inactive Visceral hyperalgesia Weight disorder Wheeze Resolved Acute Bronchitis Acute depression Basal cell carcinoma of back Bronchospasm Cervical disc herniation Chondromalacia Cough Encounter for annual general medical examination with abnormal findings in adult Encounter for health maintenance examination in adult Inflamed seborrheic keratosis Knee pain, left Low back pain NECK PAIN Nevus Patellar tendinitis of left knee Patellofemoral stress syndrome Unintentional weight loss Procedure/Surgical History EGD - esophagogastroduodenoscopy| Service Date: 03/04/2024olonoscopy| Service Date: 03/04/2024Shave biopsy| Service Date: 01/16/2024Lumbar epidural steroid injection| Service Date: 01/13/2024LT peroneal tendon repair peroneus brevis| Service Date: 10/04/2023Nerve block| Service Date: 07/15/2023Trigger point infiltration of local anesthetic and steroid| Service Date: 07/15/2023Trigger point infiltration of local anesthetic and steroid| Service Date: 04/17/2023Trigger point infiltration of local anesthetic and steroid| Service Date: 02/12/2023unch biopsy| ServiceDate: 01/14/2023MRI of thoracic spine| Service Date: 07/16/2022MRCP - Magnetic resonance chola ngiopancreatography| Service Date: 3CT of abdomen and pelvis| Service Date: 07/15/2022Nerve block| Service Date: 02/12/2022Nerve block| Service Date: 12/27/2021T of abdomen and pelvis| Service Date: 10/27/2021KUB X-ray| Service Date: 10/26/2021Laparoscopic cholecystectomy| Service Date: 10/25/2021KUB X-ray| Service Date: 10/25/2021KUB X-ray| Service Date: 10/24/2021T of abdomen and pelvis| Service Date: 10/24/2021US scan of gallbladder| Service Date: 10/24/2021ECG (electrocardiography) procedure| Service Date: 10/14/2021MRCP - Magnetic resonance cholangiopancreatography| Service Date: 10/14/2021T of abdomen and pelvis| Service Date: 10/14/2021hest x-ray| Service Date: 10/14/2021hest X-ray| Service Date: 10/05/2021Ultrasound scan of gallbladder| Service Date: 10/05/2021Epidural steroid injection| Service Date: 07/20/2021olonoscopy| Service Date: 05/30/2021Esophagogastroduodenoscopy| Service Date: 05/30/2021Trigger point injection| Service Date: 03/23/2021MRI of thoracic spine| Service Date: 08/20/2020T of abdomen and pelvis without contrast| Service Date: 08/19/2020T angiography of chest with contrast| Service Date: 06/26/2020hest x-ray| Service Date: 06/26/2020T of head without contrast| Service Date: 06/26/2020T of neck with contrast| Service Date: 06/26/2020pidural steroid injection| Service Date: 06/24/2020pidural steroid injection| Service Date: 04/18/2020T of abdomen and pelvis without contrast| Service Date: 04/01/2020Esophagus, middle third, biopsy| Service Date: 01/20/2020Upper GI endoscopy| Service Date: 01/20/2020Fluoroscopic guidance for injection of facet joint| Service Date: 01/04/2020TPI - Trigger point injection| Service Date: 08/26/2019Lumbar epidural steroid injection| Service Date: 08/26/2019Cervical Epidural Steroid Injection| Service Date: 04/28/2019Punch biopsy of skin| Service Date: 04/23/2019Electrodesiccation with curettage| Service Date: 04/23/2019Shave biopsy and cauterization of skin| Service Date: 04/14/2019Trigger point injection| Service Date: 02/16/2019Epidural steroid injection| Service Date: 02/16/2019Right C7 / T1 Epidural Steroid Injection| Service Date: 09/15/2018CT of abdomen and pelvis| Service Date: 08/01/2018Cystoscopy| Service Date: 07/28/2018RT foot x-ray| ServiceDate: 07/18/2018Epidural steroid injection| Service Date: 03/12/2018TPI - Trigger point injection| Service Date: 02/12/2018Bilateral Digital Diagnostic Mammogram Tomosynthesis| Service Date:01/28/2018X-ray of right foot| Service Date: 12/27/2017Injection into bursa| Service Date: 06/2017Cervical epidural steroid injection| Service Date: 08/15/2017Mammogram| Service Date: 08/09/2017Fine needle biopsy of breast| Service Date: 08/09/2017Mammogram| Service Date: 07/22/2017Mammogram| Service Date: 07/01/2017Lesser occipital nerve block| Service Date: 05/29/2017Injection into bursa| Service Date: 05/29/2017TPI - Trigger point injection| Service Date: 05/29/2017Lumbar epidural steroid injection| Service Date: 03/28/2017Injection into bursa| Service Date: 02/14/2017Cervical epidural steroid injection| Service Date: 12/11/2016TPI - Trigger point injection| Service Date: 12/11/2016CT of head| Service Date: 11/11/2016CT of cervical spine| Service Date: 11/11/2016Chest X-ray| Service Date: 11/11/2016TPI - Trigger point injection| Service Date: 06/05/2016Injection of facet joint| Service Date: 06/05/2016Tibia and fibula X-ray| Service Date: 10/23/2015MRI of cervical spine| Service Date: 06/10/2015Shoulder X-ray| Service Date: 05/11/2015CT of cervical spine| Service Date: 05/11/2015CT of head| Service Date:05/11/2015Shoulder X-ray| Service Date: 05/11/2015CT of head| Service Date: 05/11/2015CT of cervical spine| Service Date: 05/11/2015Cervical epidural steroid injection| Service Date: 04/18/2015Injection of facet joint using fluoroscopic guidance| Service Date: 03/21/2015Injection into facet joint of lumbar spine using fluoroscopic guidance| Service Date: 01/21/2015Injection of facet joint| Service Date: 08/13/2014Thoracic epidural steroid injection| Service Date: 08/14/19 15Injection of facet joint| Service Date: 05/24/2014Cervical epidural steroid injection| Service Date: 11/17/2013TPI - Trigger point injection| Service Date: 10/19/2013TPI - Trigger pointinjection| Service Date: 09/01/2013Injection of facet joint| Service Date: 08/12/2013Injection of facet joint using fluoroscopic guidance| Service Date: 12/19/2012Spinal fusion| Service Date: 04/15/2010Cyst| Service Date: 1990Foot and ankle injuryHysterectomyBreastNeckSpinal fusionInjectionCystoscopy with hydrodistension and TURBT medium, biopsy and fulguration ofbladder lesionsLumpectomyUreteral stent-related symptomMandibular vestibuleLeft ankle Medications acetaminophen-hydrocodone(acetaminophen-hydrocodone 325 mg-5 mg oral tablet), 1 tab, PO, bid acetaminophen-oxycodone(acetaminophen-oxycodone 325 mg-7.5 mg oral tablet), 1 tab, PO, q6h, PRN buPROPion(buPROPion 300 mg/24 hours (XL) oral tablet, extended release), 1 tab, PO, Daily, 6 refills busPIRone(busPIRone 10 mg oral tablet), 2 tab, PO, bid celecoxib(celecoxib 200 mg oral capsule), See Instructions clonazePAM(clonazePAM 1 mg oral tablet), 1 mg= 1 tab, PO, bid FLUoxetine(PROzac 20 mg oral capsule), 20 mg= 1 cap, PO, Daily, 4 refills gabapentin(gabapentin 400 mg oral capsule), See Instructions, 5 refills lidocaine topical(lidocaine 5% topical ointment), 1 appl, topical, qid, 2 refills magnesium sulfate/potassium sulfate/sodium sulfate(Suprep Bowel Prep Kit 1.6 g- 3.13 g-17.5 g/177 mLoral liquid), See Instructions methenamine(methenamine hippurate 1 g oral tablet), 1 tab, PO, bid montelukast(montelukast 10 mg oral tablet), 10 mg= 1 tab, PO, qPM, 3 refills nitrofurantoin(Macrobid 100 mg oral capsule), 100 mg= 1 cap, PO, bid omeprazole(omeprazole 20 mg oral delayed release capsule), 1 cap, PO, bid ondansetron(ondansetron 4 mg oral tablet), See Instructions ondansetron(Zofran 4 mg oral tablet), See Instructions pancrelipase(Creon 36,000 units oral delayed release capsule), 1 cap, PO, tid, 3 refills topiramate(Topamax 50 mg oral tablet), 75 mg= 1.5 tab, PO, bid, 3 refills Allergies Benzoin(Severe)Rash Adhesive bandageblisters, Itching Bee stingsRash Seasonale (oral contraceptive)sneezing rizatriptandifficulty breathing traMADol Social History Smoking Status Never smoked cigarettes Alcohol - Low Risk Exercise - Regular exercise Tobacco - Denies Tobacco Use Family History Cancer: Unknown. Heart disease: Father. Stroke: Unknown. Health Status Family Member(s) Immunizations Vaccine Date Status tetanus/diphtheria/pertuss, acel (Tdap) 02/14/2023 Recorded Comments : 2023-03-12: Historical information-source unspecified tetanus/diphtheria/pertuss, acel (Tdap) 07/04/2017 Recorded Comments : 2021-01-17: Historical information-source unspecified tetanus/diphtheria/pertuss, acel (Tdap) 08/03/2010 Recorded Comments : 2021-01-17: Historical information-source unspecified Recommendations Health Maintenance Pending(in the next year) OverDue Adult Influenza Vaccine due10/13/23and every 1year Due Adult COVID-19 Vaccination due03/24/24Unknown Frequency Adult Social Determinants of Health Screening due03/24/24Unknown Frequency Hepatitis C Screening due03/24/24One-time only Pneumococcal Vaccine Adults and Adolescents with Chronic Illness due03/24/24One-time only Shingles Vaccine due03/24/24One-time only Satisfied(in the past 1 year) Satisfied Body Mass Index on02/19/24.Satisfied by YOVANNY Lui Angela Breast Cancer Screening on09/13/23.Satisfied by YOVANNY Esteban Angela Lipid Screening on08/15/23.Satisfied by Contributor[employer]system, [employer] Electronic Signature on File Electronically Reviewed/Signed by: ARGELIA Polanco Author Signature Dt/Tm:03/24/2024 12:57 PM Department of Family Medicine [facility] Patient Care team information Care Team Personnel Name: DO Machado Jill M Position: Physician - Anesthesiologist Member Role: Lifetime Relationship Address: [address] [place] [id number] [place] Name: MD Kahn Vitaly Position: Physician - Anesthesiologist Member Role: Lifetime Relationship Address: [address] [place] [address] [place] [id number] [place] Name: ARGELIA Osullivan Katy Marie Position: Nurse Pract - Family Med Member Role: Primary Care Provider Address: [address] [place] [id number] [place] Care Team Related Persons Name: LUIS M PYLE V Name: SILVANA MCMAHON Name: JESSE MCMAHON Name: Gayatri MCMAHON Name: Gayatri MCMAHON"
--- OUTSIDE RECORDS SUMMARY | 2024-05-22 20:16 | External Medical Summary | Continuity of Care Document ---
Author Name Unknown Organization 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 [address] [facility] [address] [id number] [place] Encounter Diagnosis Dysuria(Final) - History of basal cell carcinoma (BCC) of skin(Discharge Diagnosis) - 05/19/24 Discharge Disposition: Home or Self Care Attending Physician: MD Bert, Lula Allergies, Adverse Reactions, Alerts Substance Criticality Severity Reaction Reaction Severity Status rizatriptan difficulty breathing Active Benzoin Unable to assess criticality Severe Rash Active Seasonale (oral contraceptive) sneezing Active Adhesive bandage 1 blisters Itching Active Bee stings Rash Active traMADol Active 1had reaction to spray adhesive only Assessment and Plan Extracted from: Title:Dermatology Office Visit Note Author:Rohit magana MD, Lula Date:05/18/24 1.History of basal cell ca rcinoma (BCC) of skin - s/p Mohs surgery of a BCC at the [facility], allowed to heal via secondary intention on 04/22/24 - healing very well, continue wound care for 5-7 additional days, then transition to routine skin care - reviewed skin cancer warning signs, recommend daily sun protection F/u PRN for above and as scheduled for skin exam Immunizations Given and Recorded Vaccine Date Status [...] Refills: 0, Skip if feeling drowsy., Pharmacy: [id number], Earliest Fill Date: 03/25/24 Start Date: 03/25/24 Stop Date: 04/25/24 Status: Ordered acetaminophen-oxycodone 325 mg-7.5 mg oral tablet Start: 05/19/24 4:30:00 PM EST, 1 tab, PO, q6h, Disp# 120 tab, Refills: 0, skip if feeling drowsy., PRN: as needed for pain, Pharmacy: [id number], Earliest Fill Date: 05/29/24 Start Date: 05/19/24 Stop Date: 06/28/24 Status: Ordered buPROPion 300 mg/24 hours (XL) oral tablet, extended release Start: 12/02/23 12:51:00 PM EDT, 1 tab, PO, Daily, Disp# 30 tab, Refills: 6, Pharmacy: [facility] Start Date: 12/02/23 Status: Ordered busPIRone 10 mg oral tablet Start: 11/04/23 3:02:00 PM EDT, 2 tab, PO, bid, Disp# 120 tab, Refills: 5, Pharmacy: [facility] Start Date: 11/04/23 Status: Ordered celecoxib 200 mg oral capsule Start: 01/13/24 10:50:00 AM EDT, See Instructions, Disp# 50 cap, Refills: 0, TAKE 1 CAPSULE BY MOUTHTWICE DAILY FOR THE FIRST 2 WEEKS, THEN TAKE 1 CAPSULE BY MOUTH DAILY NEEDED FOR PAIN (MAY TAKE CONTENTS OF CAPSULE AND MIX WITH SOFT FOODS SUCH APPLESAUCE.), Pharmacy: [facility] Start Date: 01/13/24 Status: Ordered clonazePAM 1 mg oral tablet Start: 05/14/24 9:39:00 AM EST, 1 tab, PO, bid, Disp# 60 tab, Refills: 0, Note to Pharmacy: PDMP verified, Pharmacy: [facility] Start Date: 05/14/24 Stop Date: 06/13/24 Status: Ordered Creon 36,000 units oral delayed release capsule Start: 01/31/24 12:01:00 PM EDT, 1 cap, PO, tid, Disp# 270 cap, Refills: 3, Note to Pharmacy: Pam Paulino, Pharmacy: [facility] Start Date: 01/31/24 Stop Date: 01/25/25 Status: Ordered gabapentin 400 mg oral capsule Start: 10/16/23 1:31:00 PM EDT, See Instructions, Disp# 120 cap, Refills: 5, TAKE 1 CAPSULE BY MOUTH FOUR TIMES DAILY, Pharmacy: [facility] Start Date: 10/16/23 Status: Ordered lidocaine 5% topical ointment Start: 01/14/24 10:57:00 AM EDT, 1 appl, topical, qid, Disp# 50 g, Refills: 2, wash hands thoroughlyafter application, Pharmacy: [facility] Start Date: 01/14/24 Stop Date: 04/13/24 Status: Ordered Macrobid 100 mg oral capsule Start: 05/18/24 1:52:00 PM EST, 1 cap, PO, bid, Disp# 20 cap, Refills: 1, Pharmacy: [facility] Start Date: 05/18/24 Stop Date: 06/07/24 Status: Ordered methenamine hippurate 1 g oral tablet Start: 05/20/24 12:14:00 PM EST, 1 tab, PO, bid, Disp# 180 tab, Refills: 0, for uti prophylaxis., Pharmacy: [facility] Start Date: 05/20/24 Status: Ordered montelukast 10 mg oral tablet Start: 11/14/23 1:27:00 PM EDT, 1 tab, PO, qPM, Disp# 30 tab, Refills: 3, Pharmacy: [facility] Start Date: 11/14/23 Stop Date: 03/13/24 Status: Ordered mupirocin 2% topical ointment Start: 04/22/24 9:49:00 AM EST, See Instructions, Disp# 22 g, Refills: 0, Apply to healing surgical site once daily with wound care until fully healed, Pharmacy: [facility] Start Date: 04/22/24 Status: Ordered omeprazole 20 mg oral delayed release capsule Start: 03/18/23 3:35:00 PM EST, 1 cap, PO, bid, Disp# 60 cap, Refills: 2, Pharmacy: [facility] Start Date: 03/18/23 Status: Ordered ondansetron 4 mg oral tablet See Instructions, Disp# 90 tab, Refills: 1, TAKE 1 TABLET TWICE A DAY NEEDED FOR NAUSEA AND VOMITING, Pharmacy: [facility] Start Date: 08/01/21 Status: Ordered PROzac 20 mg oral capsule Start: 01/09/24 9:50:00 AM EDT, 1 cap, PO, Daily, Disp# 30 cap, Refills: 4, Pharmacy: [facility] Start Date: 01/09/24 Stop Date: 06/07/24 Status: Ordered Suprep Bowel Prep Kit 1.6 g-3.13 g-17.5 g/177 mL oral liquid Start: 02/20/24 3:16:00 PM EST, See Instructions, Disp# 354 mL, Refills: 0, [facility] Pharmacy: [facility] Start Date: 02/20/24 Status: Ordered Topamax 50 mg oral tablet Start: 03/24/24 11:39:00 AM EST, 1.5 tab, PO, bid, Disp# 270 tab, Refills: 3, Pharmacy: [facility] Start Date: 03/24/24 Stop Date: 03/19/25 Status: Ordered Zofran 4 mg oral tablet Start: 02/20/24 3:16:00 PM EST, See Instructions, Disp# 3 tab, Refills: 0, Take one tablet by mouth 30 minutes prior to taking prep solution., Pharmacy: [facility] Start Date: 02/20/24 Status: Ordered Mental Status 05/18/24 Barriers to Learning one year None evide nt Mandatory Health Literacy Documentation Yes Health Literacy Communication Barriers N ever Primary Language Slovak Problem List Condition Confirmation Course Effective Dates [...] Diagnosis Diagnosis Type Effective Dates Health Status Cl inical Service Informant History of basal cell carcinoma (BCC) of skin Discharge Diagnosis 05/19/24 Non-Specified Procedures Procedure Date Related Diagnosis Body Site Status Mohs' micrographic surgery 04/22/24 Completed Colonoscopy 1, 2 03/04/24 Complete d EGD [...] 12/19/12 Completed Spinal fusion 04/15/10 Completed Cyst 68 1989 Completed Breast 69 Completed Cystoscopy with [...] stomach. Biopsied. - Normal examined duodenum. Biopsied. 4Followup with your referring doctor 5A) Duodenum, biopsy: No significant pathology. B) Gastric antrum, biopsy: Edema, congestion and epithelial repair compatible with reactive gastropathy- healing erosive gastritis. COMMENT: No Helicobacter pylori organisms are identified on an immunohistochemical stain for H. pylori. 6right sup n-l fold 7right greater and [...] 35right C7-T1 paramedian cervical epidural steroid injection 93L9-T9 paramedian cervical epidural steroid injection 371. Mild [...] ligaments 73Neck surgery in 2009, 2010, 2011 Social History Social History Type Response Smoking Status Never smoked cigaret melonie Sex Sex Representation Female (finding) Dermatology Outpatient Note * MD Bert, Lula: PERFORM Event Display: Dermatology Outpt Note Authored Date: [id number] Chief Complaint wound check left ala nasi s/p Mohs healing via second intention History of Present Illness Patient is a 54 yo CF, presents for follow-up s/p Mohs surgery of a BCC at the [facility], allowed to heal via secondary intention on 04/22/24 Patient continues daily wound care with Vaseline, has not been covering as dressing bothersome Very happy with appearance/healing to date Physical Exam A&O x 3, well-appearing, well-groomed, pleasant Focused skin exam ofsurgical site at R nose reveals a fully reepithelialized surgical wound, minimally pink Images 2024-05-18 14:23:11 Assessment/Plan 1.History of basal cell carcinoma (BCC) of skin - s/p Mohs surgery of a BCC at the [facility], allowed to heal via secondary intention on 04/22/24 - healing very well, continue wound care for 5-7 additional days, then transition to routine skin care - reviewed skin cancer warning signs, recommend daily sun protection F/u PRN for above and as scheduled for skin exam Problem List/Past Medical History Ongoing Abdominal hyperesthesia [...] stress syndrome Unintentional weight loss Procedure/Surgical History Mohs' micrographic surgery| Service Date: 04/22/2024EGD - esophagogastroduodenoscopy| ServiceDate: 03/04/2024olonoscopy| Service Date: 03/04/2024Shave biopsy| Service Date: 01/16/2024Lumbar epidural steroid injection| Service Date: 01/13/2024LT peroneal tendon repair peroneus brevis| Service Date: 10/04/2023Nerve block| Service Date: 07/15/2023Trigger point infiltration of local anesthetic and steroid| Service Date: 07/15/2023Trigger point infiltration of local anesthetic and steroid| Service Date: 04/17/2023Trigger point infiltration of local anesthetic and steroid| Service Date: 02/12/2023unch biopsy| Service Date: 01/14/2023MRI of thoracic spine| Service Date: 07/16/2022MRCP - Magnetic resonance cholangiopancreatography| Service Date: 07/16/2022T of abdomen and pelvis| Service Date: 07/15/2022Nerve block| Service Date: 02/12/2022Nerve block| Service Date: 12/27/2021T of abdomen and pelvis| Service Date: 10/27/2021KUB X-ray|Service Date: 10/26/2021Laparoscopic cholecystectomy| Service Date: 10/25/2021KUB X-ray| [...] of chest with contrast| Service Date: 06/26/2020hest x-ray|Service Date: 06/26/2020T of head without contrast| Service Date: 06/26/2020T of neck with contrast| Service Date: 06/26/2020pidural steroid injection| Service Date: 1Epidural steroid injection| Service Date: 1CT of abdomen and pelvis without contrast| Service [...] Date: 08/01/2018Cystoscopy| Service Date: 07/28/2018RT foot x-ray| Service Date: 07/18/2018Epidural steroid injection| Service Date: 03/12/2018TPI - Trigger point injection| Service Date: 02/12/2018Bilateral Digital Diagnostic Mammogram Tomosynthesis| Service Date: 01/28/2018X-ray of right foot| Service Date: 12/27/2017Injection into bursa| Service Date: 08/15/2017Cervical epidural steroid injection| Service Date: 08/15/2017Mammogram| Service Date: 08/09/2017Fine needle biopsy of breast| Service Date: 08/09/2017Mammogram| Service Date: 07/22/2017Mammogram| Service Date: 07/01/2017Lesser occipital nerve block| Service Date: 05/29/2017Injection into bursa| Service Date: 05/29/2017TPI - Trigger point injection| Service Date: 05/29/2017Lumbar epidural steroid injection| S ervice Date: 03/28/2017Injection into bursa| Service Date: 02/14/2017Cervical epidural steroid injection| Service Date: 12/11/2016TPI - Trigger point injection| Service Date: 12/11/2016CTof head| Service Date: 11/11/2016CT of cervical spine| Service Date: 11/11/2016Chest X-ray| Se rvice Date: 11/11/2016TPI - Trigger point injection| Service Date: 06/05/2016Injection of facet joint| Service Date: 06/05/2016Tibia and fibula X-ray| Service Date: 10/23/2015MRI of cervical spine| Service Date: 06/10/2015Shoulder X-ray| Service Date: 05/11/2015CT of cervical spine| Service Date: 05/11/2015CT of head| Service Date: 05/11/2015Shoulder X- ray| Service Date: 05/11/2015CT of head| Service Date: 05/11/2015CT of cervical spine| Service Date: 05/11/2015Cervical epidural steroid injection| Service Date: 04/18/2015Injection of facet joint using fluoroscopic guidance| Service Date: 03/21/2015Injection into facet joint of lumbar spine using fluoroscopic guidance| Service Date: 01/21/2015Injection of facet joint| Service Date: 08/13/2014Thoracic epidural steroid injection| Service Date: 08/13/2014Injection of facet joint| Service Date:05/24/2014Cervical epidural steroid injection| Service Date: 11/17/2013TPI - Trigger point inj ection| Service Date: 10/19/2013TPI - Trigger point injection| Service Date: 09/01/2013Injection of facet joint| Service Date: 08/12/2013Injection of facet joint using fluoroscopic guidance|Service Date: 12/19/2012Spinal fusion| Service Date: 04/15/2010Cyst| Service Date: 1990Foot and ankle injuryHysterectomyBreastNeckSpinal fusionInjectionCystoscopy with hydrodistension and TURBT medium, biopsy and fulguration of bladder lesionsLumpectomyUreteral stent-related symptomMandibular vestibuleLeft ankle Medications acetaminophen-hydrocodone(acetaminophen-hydrocodone [...] mg= 1 tab, PO, qPM, 3 refills mupirocin topical(mupirocin 2% topical ointment), See Instructions nitrofurantoin(Macrobid 100 mg oral capsule), 100 mg= 1 cap, PO, bid, 1 refills omeprazole(omeprazole 20 mg oral delayed release capsule), [...] Father. Stroke: Unknown. Health Status Family Member(s) Electronic Signature on File Electronically Reviewed/Signed by: Lula Noel MD Author Signature Dt/Tm:05/18/2024 10:49 PM Department of Dermatology CS Patient Care team information Care Team Personnel Name: DO Machado Jill M Position: Physician - Anesthesiologist Member Role: Lifetime Relationship Address: [address] [place] [id number] [place] Name: MD Kahn Vitaly Position: Physician - Anesthesiologist Member Role: Lifetime Relationship Address: [address] [place] [address] Name: AREGLIA Osullivan Katy Marie Position: Nurse Pract - Family Med Member Role: Primary Care Provider Address: [address] [place] [id number] [place] Care Team Related Persons Name: LUIS M PYLE V Name: SILVANA MCMAHON Name: JESSE MCMAHON Name: Gayatri MCMAHON Name: Gayatri MCMAHON"
--- OUTSIDE RECORDS SUMMARY | 2024-05-22 20:16 | External Medical Summary | Continuity of Care Document ---
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 Role Phone Meghan Osullivan Primary Care Physician [phone] Encounter [facility] [id number] Date(s): 05/18/24 - 05/18/24 [facility] [address] [facility] [address], [address] [place], [place] [phone] Encounter Diagnosis Dysuria(Final) - Discharge Disposition: Home or Self Care Attending Physician: ARGELIA Osullivan Katy Marie Referring Physician: ARGELIA Osullivan Katy Marie Allergies, Adverse Reactions, Alerts Substance Criticality Severity Reaction Reaction Severity Status rizatriptan difficulty breathing Active Benzoin Unable to assess criticality Severe Rash Active Adhesive bandage 1 blisters Itching Active Bee stings Rash Active traMADol Active Seasonale (oral contraceptive) sneezing Active 1had reaction to spray adhesive only Immunizations Given and Recorded Vaccine Date Status [...] Refills: 0, Skip if feeling drowsy., Pharmacy: [id number], Earliest Fill Date: 03/25/24 Start Date: 03/25/24 Stop Date: 04/25/24 Status: Ordered acetaminophen-oxycodone 325 mg-7.5 mg oral tablet Start: 05/19/24 4:30:00 PM EST, 1 tab, PO, q6h, Disp# 120 tab, Refills: 0, skip if feeling drowsy., PRN: as needed for pain, Pharmacy: [id number], Earliest Fill Date: 05/29/24 Start Date: 05/19/24 Stop Date: 06/28/24 Status: Ordered buPROPion 300 mg/24 hours (XL) oral tablet, extended release Start: 12/02/23 12:51:00 PM EDT, 1 tab, PO, Daily, Disp# 30 tab, Refills: 6, Pharmacy: [facility] Start Date: 12/02/23 Status: Ordered busPIRone 10 mg oral tablet Start: 11/04/23 3:02:00 PM EDT, 2 tab, PO, bid, Disp# 120 tab, Refills: 5, Pharmacy: [facility] Start Date: 11/04/23 Status: Ordered celecoxib 200 mg oral capsule Start: 01/13/24 10:50:00 AM EDT, See Instructions, Disp# 50 cap, Refills: 0, TAKE 1 CAPSULE BY MOUTHTWICE DAILY FOR THE FIRST 2 WEEKS, THEN TAKE 1 CAPSULE BY MOUTH DAILY NEEDED FOR PAIN (MAY TAKE CONTENTS OF CAPSULE AND MIX WITH SOFT FOODS SUCH APPLESAUCE.), Pharmacy: [facility] Start Date: 01/13/24 Status: Ordered clonazePAM 1 mg oral tablet Start: 05/14/24 9:39:00 AM EST, 1 tab, PO, bid, Disp# 60 tab, Refills: 0, Note to Pharmacy: PDMP verified, Pharmacy: [facility] Start Date: 05/14/24 Stop Date: 06/13/24 Status: Ordered Creon 36,000 units oral delayed release capsule Start: 01/31/24 12:01:00 PM EDT, 1 cap, PO, tid, Disp# 270 cap, Refills: 3, Note to Pharmacy: Pam Paulino, Pharmacy: [facility] Start Date: 01/31/24 Stop Date: 01/25/25 Status: Ordered gabapentin 400 mg oral capsule Start: 10/16/23 1:31:00 PM EDT, See Instructions, Disp# 120 cap, Refills: 5, TAKE 1 CAPSULE BY MOUTH FOUR TIMES DAILY, Pharmacy: [facility] Start Date: 10/16/23 Status: Ordered lidocaine 5% topical ointment Start: 01/14/24 10:57:00 AM EDT, 1 appl, topical, qid, Disp# 50 g, Refills: 2, wash hands thoroughlyafter application, Pharmacy: [facility] Start Date: 01/14/24 Stop Date: 04/13/24 Status: Ordered Macrobid 100 mg oral capsule Start: 05/18/24 1:52:00 PM EST, 1 cap, PO, bid, Disp# 20 cap, Refills: 1, Pharmacy: [facility] Start Date: 05/18/24 Stop Date: 06/07/24 Status: Ordered methenamine hippurate 1 g oral tablet Start: 05/20/24 12:14:00 PM EST, 1 tab, PO, bid, Disp# 180 tab, Refills: 0, for uti prophylaxis., Pharmacy: [facility] Start Date: 05/20/24 Status: Ordered montelukast 10 mg oral tablet Start: 11/14/23 1:27:00 PM EDT, 1 tab, PO, qPM, Disp# 30 tab, Refills: 3, Pharmacy: [facility] Start Date: 11/14/23 Stop Date: 03/13/24 Status: Ordered mupirocin 2% topical ointment Start: 04/22/24 9:49:00 AM EST, See Instructions, Disp# 22 g, Refills: 0, Apply to healing surgical site once daily with wound care until fully healed, Pharmacy: [facility] Start Date: 04/22/24 Status: Ordered omeprazole 20 mg oral delayed release capsule Start: 03/18/23 3:35:00 PM EST, 1 cap, PO, bid, Disp# 60 cap, Refills: 2, Pharmacy: [facility] Start Date: 03/18/23 Status: Ordered ondansetron 4 mg oral tablet See Instructions, Disp# 90 tab, Refills: 1, TAKE 1 TABLET TWICE A DAY NEEDED FOR NAUSEA AND VOMITING, Pharmacy: [facility] Start Date: 08/01/21 Status: Ordered PROzac 20 mg oral capsule Start: 01/09/24 9:50:00 AM EDT, 1 cap, PO, Daily, Disp# 30 cap, Refills: 4, Pharmacy: [facility] Start Date: 01/09/24 Stop Date: 06/07/24 Status: Ordered Suprep Bowel Prep Kit 1.6 g-3.13 g-17.5 g/177 mL oral liquid Start: 02/20/24 3:16:00 PM EST, See Instructions, Disp# 354 mL, Refills: 0, Follow [facility] by [facility] Pharmacy: [facility] Start Date: 02/20/24 Status: Ordered Topamax 50 mg oral tablet Start: 03/24/24 11:39:00 AM EST, 1.5 tab, PO, bid, Disp# 270 tab, Refills: 3, Pharmacy: [facility] Start Date: 03/24/24 Stop Date: 03/19/25 Status: Ordered Zofran 4 mg oral tablet Start: 02/20/24 3:16:00 PM EST, See Instructions, Disp# 3 tab, Refills: 0, Take one tablet by mouth 30 minutes prior to taking prep solution., Pharmacy: [facility] Start Date: 02/20/24 Status: Ordered Problem List Condition Confirmation Course Effective Dates [...] This organism produces an extended-spectrum beta-lactamase (ESBL) Procedures Procedure Date Related Diagnosis Body Site [...] fusion 04/15/10 Completed Cyst 1989 Completed Breast Completed Cystoscopy with hydrodistens ion and TURBT [...] 35right C7-T1 paramedian cervical epidural steroid injection 11F6-K5 paramedian cervical epidural steroid injection 371. Mild [...] ligaments 73Neck surgery in 2009, 2010, 2011 Results Laboratory List Name Date Urine Analysis w/ Reflexed Microscopic. (URINE W/REFLEX MICR) 05/18/24 Most recent to oldest [Reference Range]: 1 Bact (u) [NONE-NONE] MANY 1 *Abnormal* (05/18/24 2:05 PM) Bili (u) [NEG] NEGATIVE *Unknown* (05/18/24 2:05 PM) Ketones [NEG mg/dL] NEGATIVE mg/dL (05/18/24 2:05 PM) Leuk Est [NEG] LARGE 2 *Abnormal* (05/18/24 2:05 PM) Nitrite (u) [NEG] POSITIVE *Abnormal* (05/18/24 2:05 PM) Appear (u) SLIGHTLY CLOUDY *Unknown* (05/18/24 2:05 PM) Color (u) YELLOW *Unknown* (05/18/24 2:05 PM) Glu (u) [NEG mg/dL] NEGATIVE mg/dL (05/18/24 2:05 PM) Hgb (u) [NEG] TRACE *Abnormal* (05/18/24 2:05 PM) pH (u) [4.5-8.0 unit] 6.0 unit (05/18/24 2:05 PM) Prot (u) [NEG mg/dL] NEGATIVE mg/dL (05/18/24 2:05 PM) RBC (u) [0-4 /HPF] 0-4 /HPF (05/18/24 2:05 PM) Urobili [0.1-1.0 EU/dL] 0.2 EU/dL (05/18/24 2:05 PM) SG [1.005-1.030] <1.005 *LOW* (05/18/24 2:05 PM) WBC (u) [0-4 /HPF] 10-19 /HPF (05/18/24 2:05 PM) 1Result Comment: Testing Performed By: Dept of Pathology [facility] [address], [address] [place] [address] 2Result Comment: Testing Performed By: Dept of Pathology [facility] [address], [address] [place] [address] Orders for Microbiology Reports Name Date Urine Culture (CULTURE, URINE) 05/18/24 Microbiology Reports TEST:Urine.Cx STATUS:Auth (Verified) BODY SITE: SOURCE:Urine COLLECTED DATE/TIME:05/18/24 2:05 PM Status FINAL 05/20/2024 ORGANISM:Escherichia coli Susceptibilty: Escherichia coli Tested Drug Broth GERBER Dilution Broth Interpr etation Trimeth-Sulfamethoxazole <=0.5/9.5 Suscept . Tetracycline <=4 Suscept. Piperacillin Tazobac <=8 Suscept. Nitrofurantoin <=32 Suscept. Levofloxacin <=0.5 Suscept. Gentamicin <=2 Suscept. Ciprofloxacin <=0.25 Suscept. Cefazolin <=2 Suscept. Ampicillin >16 Resistant Ampicillin/Sulbactam 16/8 Intermed. Amoxicillin/Clavulanic A <=8/4 Suscept . Social History Social History Type Response Smoking Status Never smoked cigaret melonie Sex Sex Representation Female (finding) Patient Care team information Care Team Personnel Name: DO Machado Jill M Position: Physician - Anesthesiologist Member Role: Lifetime Relationship Address: [address] [place] [address] [place] Name: MD Criss, Neri Position: Physician - Anesthesiologist Member Role: Lifetime Relationship Address: [address] [place] [address] [place] Name: ARGELIA Osullivan Katy Marie Position: Nurse Pract - Family Med Member Role: Primary Care Provider Address: [address] [place] [address] [address] [place] [address] [place] Care Team Related Persons Name: LUIS M PYLE V Name: SILVANA MCMAHON Name: JESSE MCMAHON Name: Gayatri MCMAHON Name: Gayatri MCMAHON
--- OUTSIDE RECORDS SUMMARY | 2024-05-22 20:16 | External Medical Summary | Continuity of Care Document ---
Author Name Unknown Organization [facility] [address] [facility] [address] [id number] Care Team Providers Care Care Rep Name Role Phone Meghan Osullivan Primary Care Physician [phone] Encounter [facility] [id number] Date(s): 04/22/24 - 04/22/24 [facility] [address] [facility] [address] [phone] Encounter Diagnosis Basal cell carcinoma of left ala nasi(Discharge Diagnosis) - 04/22/24 Discharge Disposition: Home or Self Care Attending Physician: MD Bert, Lula Referring Physician: MD Renetta, Kimmy Newberry Allergies, Adverse Reactions, Alerts Substance Criticality Severity [...] Refills: 0, Skip if feeling drowsy., Pharmacy: [id number], Earliest Fill Date: 03/25/24 Start Date: 03/25/24 Stop Date: 04/25/24 Status: Ordered acetaminophen-oxycodone 325 mg-7.5 mg oral tablet Start: 03/25/24 6:23:00 PM EST, 1 tab, PO, q6h, Disp# 120 tab, Refills: 0, skip if feeling drowsy.,PRN: as needed for pain, Pharmacy: [id number], Earliest Fill Date: 04/29/24 Start Date: 03/25/24 Stop Date: 05/29/24 Status: Ordered buPROPion 300 mg/24 hours (XL) oral tablet, extended release Start: 12/02/23 12:51:00 PM EDT, 1 tab, PO, Daily, Disp# 30 tab, Refills: 6, Pharmacy: [facility] Start Date: 12/02/23 Status: Ordered busPIRone 10 mg oral tablet Start: 11/04/23 3:02:00 PM EDT, 2 tab, PO, bid, Disp# 120 tab, Refills: 5, Pharmacy: [facility] Start Date: 11/04/23 Status: Ordered celecoxib 200 mg oral capsule Start: 01/13/24 10:50:00 AM EDT, See Instructions, Disp# 50 cap, Refills: 0, TAKE 1 CAPSULE BY MOUTHTWICE DAILY FOR THE FIRST 2 WEEKS, THEN TAKE 1 CAPSULE BY MOUTH DAILY NEEDED FOR PAIN (MAY TAKE CONTENTS OF CAPSULE AND MIX WITH SOFT FOODS SUCH APPLESAUCE.), Pharmacy: [facility] Start Date: 01/13/24 Status: Ordered clonazePAM 1 mg oral tablet Start: 03/11/24 9:14:00 AM EST, 1 tab, PO, bid, Disp# 60 tab, Refills: 0, Note to Pharmacy: PDMP verified, Pharmacy: [facility] Start Date: 03/11/24 Stop Date: 04/10/24 Status: Ordered Creon 36,000 units oral delayed release capsule Start: 01/31/24 12:01:00 PM EDT, 1 cap, PO, tid, Disp# 270 cap, Refills: 3, Note to Pharmacy: Pam Paulino, Pharmacy: [facility] Start Date: 01/31/24 Stop Date: 01/25/25 Status: Ordered gabapentin 400 mg oral capsule Start: 10/16/23 1:31:00 PM EDT, See Instructions, Disp# 120 cap, Refills: 5, TAKE 1 CAPSULE BY MOUTH FOUR TIMES DAILY, Pharmacy: [facility] Start Date: 10/16/23 Status: Ordered lidocaine 5% topical ointment Start: 01/14/24 10:57:00 AM EDT, 1 appl, topical, qid, Disp# 50 g, Refills: 2, wash hands thoroughlyafter application, Pharmacy: [facility] Start Date: 01/14/24 Stop Date: 04/13/24 Status: Ordered Macrobid 100 mg oral capsule Start: 02/28/24 5:13:00 PM EST, 1 cap, PO, bid, Disp# 20 cap, Pharmacy: [facility] Start Date: 02/28/24 Stop Date: 03/09/24 Status: Ordered methenamine hippurate 1 g oral tablet Start: 09/18/23 8:15:00 AM EDT, 1 tab, PO, bid, Disp# 180 tab, Refills: 0, for uti prophylaxis., Pharmacy: [facility] Start Date: 09/18/23 Status: Ordered montelukast 10 mg oral tablet Start: 11/14/23 1:27:00 PM EDT, 1 tab, PO, qPM, Disp# 30 tab, Refills: 3, Pharmacy: [facility] Start Date: 11/14/23 Stop Date: 03/13/24 Status: Ordered mupirocin 2% topical ointment Start: 04/22/24 9:49:00 AM EST, See Instructions, Disp# 22 g, Refills: 0, Apply to healing surgical site once daily with wound care until fully healed, Pharmacy: [facility] Start Date: 04/22/24 Status: Ordered omeprazole 20 mg oral delayed release capsule Start: 03/18/23 3:35:00 PM EST, 1 cap, PO, bid, Disp# 60 cap, Refills: 2, Pharmacy: [facility] Start Date: 03/18/23 Status: Ordered ondansetron 4 mg oral tablet See Instructions, Disp# 90 tab, Refills: 1, TAKE 1 TABLET TWICE A DAY NEEDED FOR NAUSEA AND VOMITING, Pharmacy: [facility] Start Date: 08/01/21 Status: Ordered PROzac 20 mg oral capsule Start: 01/09/24 9:50:00 AM EDT, 1 cap, PO, Daily, Disp# 30 cap, Refills: 4, Pharmacy: [facility] Start Date: 01/09/24 Stop Date: 06/07/24 Status: Ordered Suprep Bowel Prep Kit 1.6 g-3.13 g-17.5 g/177 mL oral liquid Start: 02/20/24 3:16:00 PM EST, See Instructions, Disp# 354 mL, Refills: 0, Follow [facility] by [facility] Pharmacy: [facility] Start Date: 02/20/24 Status: Ordered Topamax 50 mg oral tablet Start: 03/24/24 11:39:00 AM EST, 1.5 tab, PO, bid, Disp# 270 tab, Refills: 3, Pharmacy: [facility] Start Date: 03/24/24 Stop Date: 03/19/25 Status: Ordered Zofran 4 mg oral tablet Start: 02/20/24 3:16:00 PM EST, See Instructions, Disp# 3 tab, Refills: 0, Take one tablet by mouth 30 minutes prior to taking prep solution., Pharmacy: [facility] Start Date: 02/20/24 Status: Ordered Mental Status 04/22/24 Barriers to Learning one year None evide nt Mandatory Health Literacy Documentation Yes Health Literacy Communication Barriers N ever Primary Language Italian Problem List Condition Confirmation Course Effective Dates [...] Sinus pain Confirmed Active Pain in left ulcas Confirmed Active Pancreatic insufficiency Confirmed Active Pancreatitis [...] Dates Health Status Cl inical Service Informant Basal cell carcinoma of left ala nasi Discharge Diagnosis 04/22/24 Procedures Procedure Date Related Diagnosis Body Site [...] 35right C7-T1 paramedian cervical epidural steroid injection 09P7-Z3 paramedian cervical epidural steroid injection 371. Mild [...] paramedian pancho and right L5, S1 interlaminar panhco 45Impression: ACR BI RADS CATEGORY 2: Benign [...] melonie Sex Sex Representation Female (finding) Dermatology Outpt Proc * MD Jackson Sara B: REVIEW MD Jackson Sara B: REVIEW, SIGN, VERIFY ARGELIA Osullivan Katy Marie: REVIEW Event Display: Dermatology Outpt Proc Authored Date: Patient: LIBERTAD MCMAHON V Age: 54 years Sex: Female : 1970 Associated Diagnoses: None Author: MD Noel Cassandra Visit Information Nurse/MA: Visit Information [facility] number: [id number] Location of surgery: [facility] accession number: [id number] Commanding [employer]: YOVANNY Rivera Kiara Advanced Practice Practitioner: TAI Gil Dawn M Surgeon: MD Noel Cassandra Referring Physician: MD Jackson Sara B Family Physician: ARGELIA Osullivan Katy Marie . Referral information: Referring Physician: MD Jackson Sara B. Family physician information: Primary Care Physician: ARGELIA Osullivan Katy Marie . Location: [facility] Health Status Allergies: Allergic Reactions (Selected) Severe Benzoin- Rash. Severity Not Documented Adhesive bandage- Itching and blisters. Bee stings- Rash. Rizatriptan- Difficulty breathing. Seasonale (oral contraceptive)- Sneezing. TraMADol- No reactions were documented.. Current medication: (Selected) Prescriptions Prescribed Creon 36,000 units oral delayed release capsule: 1 cap, PO, tid, for 90 day, 270 cap, 3 Refill(s) Macrobid 100 mg oral capsule: 1 cap, PO, bid, for 10 day, 20 cap PROzac 20 mg oral capsule: 1 cap, PO, Daily, for 30 day, 30 cap, 4 Refill(s) Suprep Bowel Prep Kit 1.6 g-3.13 g-17.5 g/177 mL oral liquid: See Instructions, [facility] 354 mL, 0 Refill(s) Topamax 50 mg oral tablet: 1.5 tab, PO, bid, for 90 day, 270 tab, 3 Refill(s) Zofran 4 mg oral tablet: See Instructions, Take one tablet by mouth 30 minutes prior to taking prepsolution., 3 tab, 0 Refill(s) acetaminophen-hydrocodone 325 mg-5 mg oral tablet: 1 tab, PO, bid, Skip if feeling drowsy., 30 tab,0 Refill(s) acetaminophen-oxycodone 325 mg-7.5 mg oral tablet: 1 tab, PO, q6h, skip if feeling drowsy., PRN: asneeded for pain, 120 tab, 0 Refill(s) buPROPion 300 mg/24 hours (XL) oral tablet, extended release: 1 tab, PO, Daily, 30 tab, 6 Refill(s) busPIRone 10 mg oral tablet: 2 tab, PO, bid, 120 tab, 5 Refill(s) celecoxib 200 mg oral capsule: See Instructions, TAKE 1 CAPSULE BY MOUTH TWICE DAILY FOR THE FIRST 2 WEEKS, THEN TAKE 1 CAPSULE BY MOUTH DAILY NEEDED FOR PAIN (MAY TAKE CONTENTS OF CAPSULE AND MIXWITH SOFT FOODS SUCH APPLESAUCE.), 50 cap, 0 Refill(s) clonazePAM 1 mg oral tablet: 1 tab, PO, bid, for 30 day, 60 tab, 0 Refill(s) gabapentin 400 mg oral capsule: See Instructions, TAKE 1 CAPSULE BY MOUTH FOUR TIMES DAILY, 120 cap, 5 Refill(s) lidocaine 5% topical ointment: 1 appl, topical, qid, for 30 day, wash hands thoroughly after application, 50 g, 2 Refill(s) methenamine hippurate 1 g oral tablet: 1 tab, PO, bid, for uti prophylaxis., 180 tab, 0 Refill(s) montelukast 10 mg oral tablet: 1 tab, PO, qPM, for 30 day, 30 tab, 3 Refill(s) mupirocin 2% topical ointment: See Instructions, Apply to healing surgical site once daily with wound care until fully healed, 22 g, 0 Refill(s) omeprazole 20 mg oral delayed release capsule: 1 cap, PO, bid, 60 cap, 2 Refill(s) ondansetron 4 mg oral tablet: See Instructions, TAKE 1 TABLET TWICE A DAY NEEDED FOR NAUSEA AND VOMITING, 90 tab, 1 Refill(s). 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 Lumbar facet joint pain / SNOMED CT 634692872 / Confirmed Cervical disc herniation / SNOMED CT 422611965 / Confirmed Weight disorder / SNOMED CT 700360548 / Confirmed Failed neck syndrome / SNOMED CT 323810073 / Confirmed Myofascial pain / SNOMED CT 4594419087 / Confirmed Cervical spondylosis / SNOMED CT 6806586038 / Confirmed DJD of shoulder / SNOMED CT 112380987 / Confirmed Lumbar radiculopathy / SNOMED CT 967708192 / Confirmed Tendinopathy of right gluteus medius / SNOMED CT 88470633 / Confirmed Cervical radiculopathy / SNOMED CT 244110098 / Confirmed Pollen allergies / SNOMED CT 646139266 / Confirmed Wheeze / SNOMED CT 65574949 / Confirmed Changing skin lesion / SNOMED CT 6940609363 / Confirmed Constipation due to opioid therapy / SNOMED CT 0363086881 / Confirmed Seasonal allergies / SNOMED CT 3336268497 / Confirmed Mood swings / SNOMED CT 48144439 / Confirmed Chronic radicular low back pain / SNOMED CT 889421655 / Confirmed Anxiety / SNOMED CT 83618197 / Confirmed Muscle pain / SNOMED CT 758691708 / Confirmed Lumbar hernia / SNOMED CT 89681130 / Confirmed Radicular pain of right lower extremity / SNOMED CT 47264540 / Confirmed Emesis / SNOMED CT 5450354455 / Confirmed History of cholecystectomy / SNOMED CT 1602330068 / Confirmed Arthritis of facet joint of lumbar spine / SNOMED CT 0502976290 / Confirmed Sinusitis / SNOMED CT 64176944 / Confirmed URI with cough and congestion / SNOMED CT 87675035 / Confirmed Sinus pain / SNOMED CT 084476829 / Confirmed Controlled substance agreement signed / SNOMED CT 069070004 / Confirmed Right hip pain / SNOMED CT 04255843 / Confirmed Pancreatitis / SNOMED CT 569311558 / Confirmed Abdominal pain / SNOMED CT 70157608 / Confirmed Visceral hyperalgesia / SNOMED CT 69333483 / Confirmed Recurrent acute pancreatitis / SNOMED CT 788948155 / Confirmed Diarrhea / SNOMED CT 346886385 / Confirmed Abdominal hyperesthesia / SNOMED CT 77382127 / Confirmed 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 Seborrheic keratoses / SNOMED CT 3810066144 / Confirmed History of basal cell carcinoma of skin / SNOMED CT 7181346244 / Confirmed Multiple drug resistant organism (MDRO) culture positive / SNOMED CT 3469321644 / Confirmed Pain in left lucas / SNOMED CT 0259483857 / Confirmed Localized swelling, mass and lump, lower limb / SNOMED CT 3434592463 / Confirmed Open wound / SNOMED CT 473295113 / Confirmed Pancreatic insufficiency / SNOMED CT 27362147 / Confirmed Ankle pain / SNOMED CT 874588030 / Confirmed Tear of peroneal tendon of left foot / SNOMED CT 785593262 / Confirmed S/P orthopedic surgery, follow-up exam / SNOMED CT 006353712 / Confirmed Lentigines / SNOMED CT 1776174045 / Confirmed Encounter for follow-up examination after completed treatment for cancer / SNOMED CT 0424197500 / Confirmed All Problems Lumbar spondylosis / SNOMED CT [id number] / Confirmed Disorder of hip / SNOMED CT 7569818279 / Confirmed 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 Lumbar facet joint pain / SNOMED CT 065967515 / Confirmed Cervical disc herniation / SNOMED CT 844984712 / Confirmed Weight disorder / SNOMED CT 567645790 / Confirmed Failed neck syndrome / SNOMED CT 728390503 / Confirmed Myofascial pain / SNOMED CT 3907128789 / Confirmed Cervical spondylosis / SNOMED CT 2896585028 / Confirmed DJD of shoulder / SNOMED CT 405214808 / Confirmed Lumbar radiculopathy / SNOMED CT 871304999 / Confirmed Tendinopathy of right gluteus medius / SNOMED CT 50030838 / Confirmed Cervical radiculopathy / SNOMED CT 263699754 / Confirmed Pollen allergies / SNOMED CT 357426124 / Confirmed Wheeze / SNOMED CT 33083728 / Confirmed Changing skin lesion / SNOMED CT 9382952506 / Confirmed Constipation due to opioid therapy / SNOMED CT 5759374375 / Confirmed Seasonal allergies / SNOMED CT 6440705982 / Confirmed Mood swings / SNOMED CT 28415243 / Confirmed Chronic radicular low back pain / SNOMED CT 822357474 / Confirmed Anxiety / SNOMED CT 14443350 / Confirmed Muscle pain / SNOMED CT 613653895 / Confirmed Lumbar hernia / SNOMED CT 51995760 / Confirmed Radicular pain of right lower extremity / SNOMED CT 47056808 / Confirmed Emesis / SNOMED CT 8531171733 / Confirmed History of cholecystectomy / SNOMED CT 7642480561 / Confirmed Arthritis of facet joint of lumbar spine / SNOMED CT 1989919253 / Confirmed Sinusitis / SNOMED CT 93790725 / Confirmed URI with cough and congestion / SNOMED CT 78743511 / Confirmed Sinus pain / SNOMED CT 492592828 / Confirmed Controlled substance agreement signed / SNOMED CT 304544373 / Confirmed Right hip pain / SNOMED CT 02096614 / Confirmed Pancreatitis / SNOMED CT 882563141 / Confirmed Abdominal pain / SNOMED CT 65403350 / Confirmed Visceral hyperalgesia / SNOMED CT 93891574 / Confirmed Recurrent acute pancreatitis / SNOMED CT 610484179 / Confirmed Diarrhea / SNOMED CT 545256095 / Confirmed Abdominal hyperesthesia / SNOMED CT 47191925 / Confirmed 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 Seborrheic keratoses / SNOMED CT 9148602175 / Confirmed History of basal cell carcinoma of skin / SNOMED CT 1102329103 / Confirmed Multiple drug resistant organism (MDRO) culture positive / SNOMED CT 4664805608 / Confirmed Pain in left lucas / SNOMED CT 0211497152 / Confirmed Localized swelling, mass and lump, lower limb / SNOMED CT 7632896410 / Confirmed Open wound / SNOMED CT 911053659 / Confirmed Pancreatic insufficiency / SNOMED CT 35123387 / Confirmed Ankle pain / SNOMED CT 106266358 / Confirmed Tear of peroneal tendon of left foot / SNOMED CT 104525576 / Confirmed S/P orthopedic surgery, follow-up exam / SNOMED CT 621969005 / Confirmed Lentigines / SNOMED CT 9289671442 / Confirmed Encounter for follow-up examination after completed treatment for cancer / SNOMED CT 8388344500 / Confirmed. Mohs Surgical Information Operation: Surgical excision of cutaneous malignancy using continuous microscopic control (Mohs Micrographic Surgery). Diagnosis: Basal cell carcinoma of left ala nasi ([id number] C44.311, Discharge, Medical), Nodular. Nurse/MA: Surgical Information Surgical Diagnosis: Nodular Surgical Location: Right, Superior, Nasolabial fold Previous Treatment: None Anesthetic: 1% lidocaine with epinephrine Preop Size of Tumor Length: 0.3 cm Preop Size of Tumor Width: 0.2 cm Stage 1 Number of Specimens: 1 Final defect size Length: 0.5 cm Final defect size Width: 0.4 cm Size of repair: second intention Postoperative Follow up: 3 weeks, Wound check, Regular skin check with the referring tinsmith apprentice . Indications for Mohs surgery: High risk location, Ill-defined margins. Appropriate Use Criteria (AUC): 7 . Postoperative medications: Mupirocin 2% ointment to be used daily for wound care. Anesthetic: 0.5% lidocaine with epinephrine and bicarbonate. Clinical description: 0.3 cm pink pearly and atrophic papule. Procedure: Informed consent was obtained which included explanation of the Mohs surgery procedure, reasons why Mohs surgery was preferable to alternatives such as standard excision, and wound management, associated risks, scarring, and potential need for further surgery. The patient verbalized understanding and all questions were answered. The biopsy site/lesion was outlined, and the location was re-confirmed by the patient using a hand held mirror. The operative site was then prepped with antiseptic solution, draped, and anesthetized with a infiltration of local anesthetic. Following this, the clinically apparent portion of the tumor was surgically removed. A thin layer of tissue was then surgically excised around the tumor. Hemostasis was obtained with electrocautery, or aluminum chloride, and a pressure dressing was placed on the wound. Bipolar forceps were used in patients with an implanted electrical device. A reference map was drawn and the excised tissue was cut into an appropriate number of sections for examination in the Mohs micrographic laboratory. Edges of each tissue section were dyed with tissue marking ink inorder to achieve precise orientation. These tissue sections were then processed and stained to produce slides for evaluation of the entire peripheral and deep margins of the excised tissue. The prepared microscopic sections were then examined by the Mohs surgeon. Stages: Stage 1 included multiple microscopic sections of 1 tissue specimens, At this point, no further tumor cells were identified. Tumor eradication was complete after a total of 1 stage(s) of surgery. Procedural Time Out: Patient identified with name and date of , Procedure verified, Correct site, if applicable. Wound management: A discussion was held with the patient about reconstruction options and wound healing, addressing functional and cosmetic concerns along with benefits and potential risks of each approach., After full discussion of the options, it was decided to allow this wound to heal by second intention. The wound was cleansed and a pressure dressing was applied and the patient was instructedin postoperative care. . Total volume of anesthetic administered: 2 ml. Procedure Tolerated: Well, Without complications, Estimated blood loss 10 ml. Postoperative follow up: 3 to 4 weeks for wound check, as scheduled with Dr. Jackson for skin exam. Photo: . 2024-04-22 08:40:08 2024-04-22 09:41:18 Mohs Surgical Information Second Site Nurse/MA: Surgical Information 2nd Site . Electronic Signature on File CC: Kimmy Jackson MD [address] [place] [address] [address] [place] [address] CC: ARGELIA Polanco [address] [place] [address] [address] [place] [address] Electronically Reviewed/Signed by: Lula Noel MD Author Signature Dt/Tm:04/22/2024 01:24 PM Department of Dermatology CS * YOVANNY Rivera Kiara: PERFORM Event Display: Dermatology Outpt Proc Authored Date: [id number] DERMATOLOGY OUTPATIENT PROCEDURE NOTE Name: LIBERTAD MCMAHON V Patient Number: [id number] : 1970 Date of Service: 04/22/2024 _ Electronic Signature on File Electronically Reviewed/Signed by: Estela Rivera Author Signature Dt/Tm:04/22/2024 12:28 PM Electronically Reviewed/Signed by: Lual Noel MD Cosigner Signature Dt/Tm: 04/22/2024 01:20 PM Department of Dermatology [facility] Patient Care team information Care Team Personnel Name: DO Machado Jill M Position: Physician - Anesthesiologist Member Role: Lifetime Relationship Address: [address] [place] [address] [place] Name: MD Criss, Neri Position: Physician - Anesthesiologist Member Role: Lifetime Relationship Address: [address] [place] [address] [place] Name: ARGELIA Osullivan Katy Marie Position: Nurse Pract - Family Med Member Role: Primary Care Provider Address: [address] [place] [address] Care Team Related Persons Name: LUIS M PYLE V Name: SILVANA MCMAHON Name: JESSE MCMAHON Name: Gayatri MCMAHON Name: Gayatri MCMAHON
--- OUTSIDE RECORDS SUMMARY | 2024-05-22 20:16 | External Medical Summary | Continuity of Care Document ---
Author Name Unknown Organization [facility] [address] [place] [address] [place] MEREDITH [phone] Care Team Providers Care Instructor Tap Dancing Name Role Phone Meghan Osullivan Primary Care Physician [phone] [id number] Date[facility]s): 03/25/24 - 03/25/24 [facility] [address] [facility] Pain Medicine [address], [address], [address] [place] [address] [phone] Encounter Diagnosis Cervical spondylosis(Discharge Diagnosis) - 03/25/24 S/P cervical spinal fusion(Discharge Diagnosis) - 03/25/24 Pain syndrome, chronic(Discharge Diagnosis) - 03/25/24 Chronic, continuous use of opioids(Discharge Diagnosis) - 03/25/24 Occipital headache(Discharge Diagnosis) - 03/25/24 Discharge Disposition: Home or Self Care Attending Physician: MD Criss, [facility] Referring Physician: MD Osullivan Laurie Allergies, Adverse Reactions, Alerts Substance Criticality Severity Reaction Reaction Severity Status rizatriptan difficulty breathing Active Benzoin Unable to assess criticality Severe Rash Active traMADol Active Seasonale (oral contraceptive) sneezing Active Adhesive bandage 1 blisters Itching Active Bee stings Rash Active 1had reaction to spray adhesive only Assessment and Plan Extracted from: Title:Office Visit Note Author:MD rFanky, Yessi Date:03/25/24 1.Cervical spondylosis 2.S/P cervical spinal fusion 3.Pain syndrome, chronic 4.Chronic, continuous use of opioids 5.Occipital headache Patient to continue her current pain regimen. Refilled Percocet and Jackson today.Patient to be schedule for trigger point injections and occipital nerve block procedure. Patient requests possibly of spinal epidural injection before the end of ue to insurance purposes, howeverwould like to prioritize occipitalnerve block procedure first. Patient prefers to see Dr. Kahn for interventions, however agreeable to see other providers at pain clinic to facilitate quicker process for interventions. The patient was evaluated and discussed with MD Kelley, Vitalywho agrees with the findings, assessment, and plan as stated above, unless otherwise stated in an addendum below. Yessi Wilkins MD PGY-1 Internal Medicine Immunizations Given and Recorded Vaccine Date Status [...] Refills: 0, Skip if feeling drowsy., Pharmacy: [id number], Earliest Fill Date: 03/25/24 Start Date: 03/25/24 Stop Date: 04/25/24 Status: Ordered acetaminophen-oxycodone 325 mg-7.5 mg oral tablet Start: 03/25/24 6:23:00 PM EST, 1 tab, PO, q6h, Disp# 120 tab, Refills: 0, skip if feeling drowsy.,PRN: as needed for pain, Pharmacy: [id number], Earliest Fill Date: 04/29/24 Start Date: 03/25/24 Stop Date: 05/29/24 Status: Ordered buPROPion 300 mg/24 hours (XL) oral tablet, extended release Start: 12/02/23 12:51:00 PM EDT, 1 tab, PO, Daily, Disp# 30 tab, Refills: 6, Pharmacy: [id number] Start Date: 12/02/23 Status: Ordered busPIRone 10 mg oral tablet Start: 11/04/23 3:02:00 PM EDT, 2 tab, PO, bid, Disp# 120 tab, Refills: 5, Pharmacy: [id number] Start Date: 11/04/23 Status: Ordered celecoxib 200 mg oral capsule Start: 01/13/24 10:50:00 AM EDT, See Instructions, Disp# 50 cap, Refills: 0, TAKE 1 CAPSULE BY MOUTHTWICE DAILY FOR THE FIRST 2 WEEKS, THEN TAKE 1 CAPSULE BY MOUTH DAILY NEEDED FOR PAIN (MAY TAKE CONTENTS OF CAPSULE AND MIX WITH SOFT FOODS SUCH APPLESAUCE.), Pharmacy: [id number] Start Date: 01/13/24 Status: Ordered clonazePAM 1 mg oral tablet Start: 03/11/24 9:14:00 AM EST, 1 tab, PO, bid, Disp# 60 tab, Refills: 0, Note to Pharmacy: PDMP verified, Pharmacy: [id number] Start Date: 03/11/24 Stop Date: 04/10/24 Status: Ordered Creon 36,000 units oral delayed release capsule Start: 01/31/24 12:01:00 PM EDT, 1 cap, PO, tid, Disp# 270 cap, Refills: 3, Note to Pharmacy: Pam Paulino, Pharmacy: [id number] Start Date: 01/31/24 Stop Date: 01/25/25 Status: Ordered gabapentin 400 mg oral capsule Start: 10/16/23 1:31:00 PM EDT, See Instructions, Disp# 120 cap, Refills: 5, TAKE 1 CAPSULE BY MOUTH FOUR TIMES DAILY, Pharmacy: [id number] Start Date: 10/16/23 Status: Ordered lidocaine 5% topical ointment Start: 01/14/24 10:57:00 AM EDT, 1 appl, topical, qid, Disp# 50 g, Refills: 2, wash hands thoroughlyafter application, Pharmacy: [id number] Start Date: 01/14/24 Stop Date: 04/13/24 Status: Ordered Macrobid 100 mg oral capsule Start: 02/28/24 5:13:00 PM EST, 1 cap, PO, bid, Disp# 20 cap, Pharmacy: [id number] Start Date: 02/28/24 Stop Date: 03/09/24 Status: Ordered methenamine hippurate 1 g oral tablet Start: 09/18/23 8:15:00 AM EDT, 1 tab, PO, bid, Disp# 180 tab, Refills: 0, for uti prophylaxis., Pharmacy: [id number] Start Date: 09/18/23 Status: Ordered montelukast 10 mg oral tablet Start: 11/14/23 1:27:00 PM EDT, 1 tab, PO, qPM, Disp# 30 tab, Refills: 3, Pharmacy: [id number] Start Date: 11/14/23 Stop Date: 03/13/24 Status: Ordered omeprazole 20 mg oral delayed release capsule Start: 03/18/23 3:35:00 PM EST, 1 cap, PO, bid, Disp# 60 cap, Refills: 2, Pharmacy: [facility] Start Date: 03/18/23 Status: Ordered ondansetron 4 mg oral tablet See Instructions, Disp# 90 tab, Refills: 1, TAKE 1 TABLET TWICE A DAY NEEDED FOR NAUSEA AND VOMITING, Pharmacy: [facility] Start Date: 08/01/21 Status: Ordered PROzac 20 mg oral capsule Start: 01/09/24 9:50:00 AM EDT, 1 cap, PO, Daily, Disp# 30 cap, Refills: 4, Pharmacy: [id number] Start Date: 01/09/24 Stop Date: 06/07/24 Status: Ordered Suprep Bowel Prep Kit 1.6 g-3.13 g-17.5 g/177 mL oral liquid Start: 02/20/24 3:16:00 PM EST, See Instructions, Disp# 354 mL, Refills: 0, Follow [facility] given to [facility] by [facility] Pharmacy: [id number] Start Date: 02/20/24 Status: Ordered Topamax 50 mg oral tablet Start: 03/24/24 11:39:00 AM EST, 1.5 tab, PO, bid, Disp# 270 tab, Refills: 3, Pharmacy: [id number] Start Date: 03/24/24 Stop Date: 03/19/25 Status: Ordered Zofran 4 mg oral tablet Start: 02/20/24 3:16:00 PM EST, See Instructions, Disp# 3 tab, Refills: 0, Take one tablet by mouth 30 minutes prior to taking prep solution., Pharmacy: [id number] Start Date: 02/20/24 Status: Ordered Mental Status 03/25/24 Barriers to Learning one year None evide nt Mandatory Health Literacy Documentation Yes Health Literacy Communication Barriers N ever Primary Language Kiswahili Problem List Condition Confirmation Course Effective Dates [...] Diagnosis Diagnosis Type Effective Dates Health Status Clinical Service Informant S/P cervical spinal fusion Discharge Diagnosis 03/25/24 Chronic, continuous use of opioids Discharge Diagnosis 03/25/24 Cervical spondylosis Discharge Diagnosis 03/25/24 Pain syndrome, chronic Discharge Diagnosis 03/25/24 Occipital headache Discharge Diagnosis 03/25/24 Procedures Procedure Date Related Diagnosis Body Site [...] 05/11/15 Complet ed Shoulder X-ray 65 05/11/15 [facility] ed Cervical epidural steroid injection 04/18/15 Completed [...] 35right C7-T1 paramedian cervical epidural steroid injection [id number] paramedian cervical epidural steroid injection 371. Mild [...] Most recent to oldest [Reference Range]: 1 Temperature [36.5-37.9 DegC] 36.4 DegC *LOW* (03/25/24 10:50 AM) Heart Rate 106 bpm (03/25/24 10:50 AM) Blood Pressure 127/88mmHg (03/25/24 10:50 AM) Cuff Pulse Pressure 39 mmHg (03/25/24 10:50 AM) BP Location # 1 Left Arm (03/25/24 10:50 AM) Social History Social History Type Response Smoking Status Never smoked cigaret melonie Sex Sex Representation Female (finding) Medicine Outpt Note * MD Franky, Yessi: DUNCAN Kahn MD, Neri: MODIFY Event Display: Medicine Outpt Note Authored Date: Chief Complaint 3 month F/U fo neck and back pain History of Present Illness Bonnie Mcmahonpresents today for 3 month follow up appointment for neck and back pain. Patient also request refills on Percocet and hydrocodone medications. Patient has history of cervical laminectomy C5-C6 in 2010 and ACDF at the same level in 2011.She has chronic neck pain. Today, patient reports she has 5/10 pain which is a bit worse than her normal 3/10 chronic pain. Patient also reports a occipitalheadachetoday which in conjunctionwith her chronicpain, is making her feel unwell. Patient reports new acute symptom of bilateral pins/needles tingling andnumbness in her hands.Patient reports episodes come on suddenly in her fingers and her palms. Patient will shake her hands which seems to resolve the symptoms. Patient is unsure how long or often the episodes last.Reports right arm is always damaged by former surgeries. But this is the first time for the numbness feeling. Otherwise she reportsbeing in her usual state of health. XR and MRI results of cervical spine was discussed with her during office visit today. Patient requested refills on pain medications.She denies having constipationor sedationfrom taking opioid analgesics. She has been on these med icationschronicallyanddoes notreport havingany side effectsas mentioned above. She does not demonstrate any aberrant drug taking behaviors. Review of Systems As above. Physical Exam Vitals & Measurements T:36.4C HR:106(Monitored) BP:127/88 She was awake, alert, and oriented x 3. Her affect was euthymic. Her speech was fluent and her thought process was intact. Occipital pain reproducible on palpation during exam. No discoloration of skin on hands bilaterally. Images Outside images of cervical MRI discussed with patient in room today, all questions answered Assessment/Plan 1.Cervical spondylosis 2.S/P cervical spinal fusion 3.Pain syndrome, chronic 4.Chronic, continuous use of opioids 5.Occipital headache Patient to continue her current pain regimen. Refilled Percocet and Jackson today.Patient to be schedule for trigger point injections and occipital nerve block procedure. Patient requests possiblyof spinal epidural injection before the end of ue to insurance purposes, howeverwould liketo prioritize occipitalnerve block procedure first. Patient prefers to see Dr. Kahn for interventions, however agreeable to see other providers at pain clinic to facilitate quicker process for interventions. The patient was evaluated and discussed with MD Kelley, Vitalywho agrees with the findings,assessment, and plan as stated above, unless otherwise stated in an addendum below. Yessi Wilkins MD PGY-1 Internal Medicine Attestation Attending Attestation:I participated in the entire evaluation of the patient, including history and physical examination and formulation of the treatment plan. I reviewed and edited where necessarythe above note and agree with its content. Neri Kahn M.D. Problem List/Past Medical History Ongoing Abdominal hyperesthesia [...] Procedure/Surgical History EGD - esophagogastroduodenoscopy| Service Date: 11/20/2024Colonoscopy| Service Date: 03/04/2024Shave biopsy| Service Date: 01/16/2024Lumbar [...] - Magnetic resonance chola ngiopancreatography| Service Date: 07/16/2022T of abdomen and pelvis| [...] due10/13/23and every 1year Due Adult COVID-19 Vaccination due03/25/24Unknown Frequency Adult Social Determinants of Health Screening due03/25/24Unknown Frequency Hepatitis C Screening due03/25/24One-time only Pneumococcal Vaccine Adults and Adolescents with Chronic Illness due03/25/24One-time only Shingles Vaccine due03/25/24One-time only Satisfied(in the past 1 year) Satisfied Body Mass Index on02/19/24.Satisfied by YOVANNY Lui Angela Breast Cancer Screening on09/13/23.Satisfied by YOVANNY Esteban Angela Lipid Screening on08/15/23.Satisfied by Contributor_system, [employer] Electronic Signature on File Electronically Reviewed/Signed by: Yessi Wilkins MD Author Signature Dt/Tm:03/25/2024 12:20 PM Resident Division of Internal Medicine Electronically Reviewed/Signed by: Neri Kahn MD Cosigner Signature Dt/Tm: 03/25/2024 06:17 PM Professor, Pain Medicine Division Department of Anesthesiology and Perioperative Medicine [facility] [address], [place] [address] Patient Care team information Care Team Personnel Name: DO Machado Jill M Position: Physician - Anesthesiologist Member Role: Lifetime Relationship Address: [address] [place] [address] [address] [place] [address] Name: MD Criss, Neri Position: Physician - Anesthesiologist Member Role: Lifetime Relationship Address: [address] [place] [address] [address] [place] [address] Name: ARGELIA Osullivan Katy Marie Position: Nurse Pract - Family Med Member Role: Primary Care Provider Address: [address] [facility] [address] [place] [address] [place] Care Team Related Persons Name: LUIS M PYLE V Name: SILVANA MCMAHON Name: JESSE MCMAHON Name: Gayatri MCMAHON Name: Gayatri MCMAHON"
--- NOTE | 2024-05-22 23:06 | Magnetic Resonance Report ---
Exam(s): MRI MRCP EXAM: MR Abdomen Without Intravenous Contrast, MRCP Protocol CLINICAL HISTORY: cbd 1.2cm dilitation.. TECHNIQUE: Multiplanar magnetic resonance images of the abdomen without intravenous contrast using MRCP protocol. COMPARISON: MRCP 07/16/2022; CT abdomen and pelvis with contrast performed at 1703 hrs. FINDINGS: Bile ducts: The common hepatic duct is dilated measuring 13 mm proximal to the cystic duct remnant. This is increased from 10 mm on the previous MRCP examination. The common bile duct remains dilated to the ampulla. No choledocholithiasis noted. No significant intrahepatic biliary dilatation. Gallbladder: Status post cholecystectomy. Liver: Unremarkable. Pancreas: Unremarkable. No ductal dilation. Spleen: Unremarkable. No splenomegaly. Adrenals: Unremarkable. No mass. Kidneys and ureters: Unremarkable. No hydronephrosis. Stomach and bowel: Unremarkable. No obstruction. IMPRESSION: The common hepatic duct is dilated measuring 13 mm proximal to the cystic duct remnant. This is increased from 10 mm on the previous MRCP examination. The common bile duct remains dilated to the ampulla. No choledocholithiasis noted. No significant intrahepatic biliary dilatation. Correlate with bilirubin levels as this could represent normal adaptive ectasia/reservoir effect following cholecystectomy or represent developing stricture at the ampulla. If there is laboratory findings concerning for biliary stasis, manometric evaluation of the ampulla may be appropriate. Electronically signed by: Sukumar Watkins MD 05/22/24 23:05 PM
--- NOTE | 2024-05-23 00:38 | History & Physical Report ---
Date of Service May 23, 2024 Assessment & Plan (1) Intractable epigastric abdominal pain: Plan 54-year-old female PMHx cholecystectomy, intractable epigastric abdominal pain, chronic recurrent pancreatitis, NEL, and MDD presenting to ED for N/V/D and typical pain x 5 days. No signs of infection, slightly elevated BUN/creatinine ratio, and alkaline phosphatase of 117 (elevated at patient's baseline). Normal lipase, and CTAP revealing only finding being intrahepatic biliary dilatation with small antibiotics-IV likely pneumobilia. MRCP was completed with slight increase in CHD dilatation now being 13 mm, or stable findings from prior imaging. #Intractable abdominal pain/history of pancreatitis/cholecystectomy History of chronic pancreatitis, on Creon. Unclear origin of pain at time of admission. Patient has been seen by GI in the past while hospitalized for similar instances on multiple occasions. Also been seen by pain management regarding this type of abdominal pain during her prior hospitalization. h/o alcohol abuse in the past, denying any current EtOH use. Only changes in imaging is slightly larger dilatation of CHD and small air in hepatic segment IV. Otherwise, no changes. - CBC without leukocytosis, CMP with alkaline phosphatase 117 which is chronic for patient, and lipase 75. UA without signs of infection. - CTAP stable dilatation of common bile duct measuring 1.2 cm, no intrahepatic biliary dilatation with small air in hepatic segment IV, likely pneumobilia - MRCP hepatic duct dilated 13 mm, increased from 10 mm on previous MRCP, no choledocholithiasis, CBD dilated to ampulla. - Morphine for pain management, zofran prn, maalox prn - LR maintenance fluids @ 80 mL/h x 1 L - BMP am - GI consulted- appreciate input + recs #Previously dx UTI- States she was dx w/ UTI as outpatient; UA at admission w/o bacteria, finished 4/10 days of Macrobid- D/c abx as no evidence of UTI at admission #MDD/NEL- Fluoxetine, clonazepam twice daily as needed, buspirone, bupropion #Cervical radiculopathy- Gabapentin Dispo: Admit, med/sx VTE Prophylaxis: SCDs, encourage ambulation This document was dictated utilizing [employer]. Please excuse any grammatical errors that may be secondary to use of this software. Admission and Anticipated Discharge Date Admission Date: 05/23/2024 History of Present Illness Chief Complaint: Abdominal pain Primary Care Provider: Meghan Osullivan 54-year-old female PMHx cholecystectomy, intractable epigastric abdominal pain, chronic recurrent pancreatitis, NEL, and MDD presenting to ED for N/V/D and abdominal pain x 5 days. States that approximately 5 days ago she started to have worsening abdominal pain, located to epigastric region sometimes radiating to the LUQ, and around her lower back. States that the pain is constant, stating that it is an aching type pain in compares it to labor pains, but also with occasional sharp stabbing pains in her epigastric region. Rates her pain a 6 out of 10 on the pain scale. States that she is also been having greasy stools that range from almost black coloration to yellow coloration starting around the same time. Has nausea/vomiting with any oral intake and has been unable to tolerate food. Was recently started on Macrobid for UTI as outpatient, and states that she also saw her chiropractor for the back pain initially and the chiropractor stated that all was well. She is denying fever or chills. No known sick contacts. Overall denying chest pain, SOB, palpitations, numbness/tingling, or fever/chills. Has been taking medications as prescribed. States this feels identical to her past history of pancreatitis. Denying EtOH use. No illicit drug use. ED evaluation reveals CBC unremarkable, CMP chloride 110, BUN/creatinine ratio 20.7, and alkaline phosphatase 117, otherwise grossly WNL. Lipase 75, UA without signs of infection. CTAP stable dilatation of CBD measuring 1.2 cm and new intrahepatic biliary dilatation with small air in hepatic segment IV likely pneumobilia. MRCP CHD 13 mm proximal to cystic duct prominent, increased from 10 mm, CBD dilated to ampulla, no choledocholithiasis. Patient did receive 2L NSS, Zofran 4 mg, lorazepam 0.5 mg, and total of 12 mg morphine IV in ED. Please see Dr. Douglass's attestation for adjustments/additions to treatment plan. Allergies Allergy/AdvReac Type Severity Reaction Status Date / Time rizatriptan Allergy Severe Difficulty Verified 11/15/23 13:30 Breathing benzoin Allergy Intermediate USED TO Verified 11/15/23 13:30 PUT UNDER STERI STRIPS TO KEEP THEM ON -- BLISTERS tramadol AdvReac Intermediate N/V Verified 11/15/23 13:30 Home Medications Medication Instructions Recorded Confirmed Type clonazepam 1 mg tablet (Klonopin) 1 mg PO BID PRN Anxiety 02/10/18 05/23/24 History bupropion HCl 150 mg 24 hr tablet, 300 mg PO QAM 09/19/19 05/23/24 History extended release (Wellbutrin XL) gabapentin 400 mg capsule 1,600 mg PO 2XD 06/26/20 05/23/24 History buspirone 10 mg tablet 20 mg PO BID 06/21/22 05/23/24 History eortrg-xzxitofw-eipygyb 1 cap PO 3XD 09/24/23 05/23/24 History 24,000-76,000-120,000 unit capsule,delayed rel (Creon) oxycodone-acetaminophen 7.5 mg-325 1 tab PO Q4H PRN Pain 09/24/23 05/23/24 History mg tablet (Percocet) montelukast 10 mg tablet 10 mg PO DAILY PRN Allergy Symptoms 11/15/23 05/23/24 History fluoxetine 20 mg capsule 20 mg PO DAILY 05/23/24 05/23/24 History nitrofurantoin 1 cap PO 2XD 05/23/24 05/23/24 History monohydrate/macrocrystals 100 mg capsule (Macrobid) topiramate 50 mg tablet (Topamax) 25 mg PO 2XD 05/23/24 05/23/24 History Past Med/Surg History Problem List (Updated 05/23/24 @ 02:44 by ARGELIA Carrillo) Vaginal dryness Menopause Intractable epigastric abdominal pain (Acute) Transaminitis Intractable abdominal pain (Acute) Nausea (Acute) Chronic recurrent pancreatitis (Acute) Constipation Hyponatremia Nausea vomiting and diarrhea (Acute) Elevated LFTs (Acute) UTI (urinary tract infection) (Acute) Chest pain (Acute) H/O abdominal surgery (10/27/21) Laparoscopic Washout S/P Laparoscopic Cholecystectomy(Not Applicable) - Sukumar Wood DO Post-operative haemorrhage Postoperative anemia S/P laparoscopic cholecystectomy History of pancreatitis Small bowel obstruction Encounter for pre-operative examination Enteritis Vomiting (Acute) Abdominal pain (Acute) Volvulus of small intestine (Acute) Acute pain Nausea & vomiting (Acute) Abdominal pain (Acute) Acute pancreatitis (Acute) Bleeding disorder Anemia Pelvic pain Encounter for pre-operative examination Hematuria Acute right flank pain (Acute) Urinary retention Urge and stress incontinence Disc degeneration, lumbar Cervical radiculopathy GOOD ROM PER PT NEL (generalized anxiety disorder) (Chronic) MDD (major depressive disorder) Migraine Medical History Urge and stress incontinence Urinary retention MDD (major depressive disorder) NEL (generalized anxiety disorder) Chronic recurrent pancreatitis most recent spring 2022, currently taking creon w/ all meals Hx of migraines Osteoarthritis Peripheral neuropathy Cervical disc herniation (02/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 TOTAL OF 3 FUSIONS (Grid20/20). LIMITED RANGE TO LEFT. HAS BEEN INTUBATED SINCE. Cervical Arthroplasty C4-C5 02/18/14: MAC #3, ETT #7.0, Grade 1 View, Smooth intubation on 1st attempt Hx of abdominal surgery (10/25/21) p Diagnostic Laparoscopy with Pelvic Washings(Not Applicable) - Sukumar Wood, s Laparoscopic Cholecystectomy - Sukumar Wood, H/O wrist surgery right wrist, ganglion cyst removed History of mandibular surgery for TMJ; ROM "is good" H/O hand surgery repair of hand injury due to a dog bite Hx of cystoscopy (~08/15/20) TURBT with stent placement [facility] S/P ureteral stent placement History of esophagogastroduodenoscopy (EGD) History of robot-assisted laparoscopic hysterectomy History of breast biopsy x3, benign Hx of lumpectomy LEFT (BENIGN) S/P hardware removal CERVICAL History of cystoscopy duplicate Family History Father Cardiac disorder Malignant neoplasm of colon Prostate cancer Colorectal cancer Aunt Breast cancer Denies family history of Ovarian cancer Social History Smoking Status: Never smoker Second Hand Exposure: No; Do You Dip or Chew Tobacco: No; Hx Alcohol Use: No Hx Substance Use: No Preferred Language: Setswana Communication Ability: Effective Visual Impairment: No Limitations Ict Developer Required: No Beliefs That Will Affect Care: None marital status: Current Living Situation: Spouse and Family Current Living Situation Comment: at home How many Children do You have: 2 Other Information That Helps Us Care for You: No Feels Safe at Home: Yes Safety Concerns: Feels Safe At This Time Assistive Devices: Glasses Review of Systems Review of Systems: All systems reviewed & are unremarkable except as noted in Subjective Physical Exam Physical Exam: General: No acute distress, appears uncomfortable Skin: Warm and dry Head: Normocephalic, atraumatic Eyes: PERRL, conjunctivae clear, sclera non-icteric ENT: External ear and ear canal without swelling; nose atraumatic; good dentition, tongue normal appearance, pharynx normal Neck: Supple, no LAD Cardio: RRR, no M/G/R, S1 and S2 normal Resp: No respiratory distress, Lungs CTA in all lobes bilaterally, no wheezes, rales, or rhonchi Abdomen: Soft, symmetric, tenderness to palpation epigastric region; no peritoneal signs, no guarding; no masses or hepatosplenomegaly; Bowel sounds normoactive MSK: No deformities; pulses palpable and equal; no edema. Neuro: Awake, alert; CN grossly intact Psych: Appropriate mood and affect; good judgement and insight. Results & Data Results & Data Vital Signs (Past 12 Hours) Vital Signs Temp Pulse Resp BP Pulse Ox O2 Del Method 05/22/24 23:00 74 17 133/72 97 Room Air 05/22/24 22:59 77 16 135/77 97 Room Air 05/22/24 22:39 80 15 97 05/22/24 22:30 89 17 174/95 H 96 Room Air 05/22/24 22:06 85 24 96 05/22/24 22:01 128/70 05/22/24 21:51 85 34 H 97 05/22/24 21:33 83 20 112/59 L 96 Room Air 05/22/24 21:00 77 15 133/69 94 Room Air 05/22/24 20:36 77 16 119/76 97 Room Air 05/22/24 20:34 83 05/22/24 19:26 77 18 125/75 97 Room Air 05/22/24 19:24 78 22 125/75 98 Room Air 05/22/24 19:03 81 13 157/99 H 99 Room Air 05/22/24 18:39 82 19 122/63 100 05/22/24 18:21 143/76 H 05/22/24 18:09 80 16 135/80 100 05/22/24 16:42 83 17 107/77 98 05/22/24 16:27 90 16 99 05/22/24 16:26 88 05/22/24 13:49 37.0 C 110 H 22 130/89 99 Room Air Laboratory Results 05/22/24 05/22/24 18:18 14:20 WBC 7.26 RBC 4.39 Hgb 13.7 Hct 41.0 MCV 93.4 MCH 31.2 MCHC 33.4 RDW Std Deviation 43.4 RDW Coeff of Angelique 12.5 Plt Count 385 MPV 9.8 Immature Gran % (Auto) 0.3 Neut % (Auto) 58.3 Lymph % (Auto) 30.7 Creek % (Auto) 5.4 Eos % (Auto) 4.1 Baso % (Auto) 1.2 Neut # (Auto) 4.23 Lymph # (Auto) 2.23 Creek # (Auto) 0.39 Eos # (Auto) 0.30 Baso # (Auto) 0.09 Immature Gran # (Auto) 0.02 Sodium 142 Potassium 4.2 Chloride 110 H Carbon Dioxide 23 Anion Gap 9 BUN 17 Creatinine 0.82 Est Cr Clr Drug Dosing 79.1 eGFR 84.95 BUN/Creatinine Ratio 20.7 H Glucose 101 H Calcium 9.6 Total Bilirubin 0.6 AST 15 ALT 14 Alkaline Phosphatase 117 H Total Protein 7.2 Albumin 4.7 Globulin 2.5 Albumin/Globulin Ratio 1.9 Lipase 75 Urine Color Yellow Urine Appearance Clear Urine pH 7.0 Ur Specific [place] 1.044 H Urine Protein Negative Urine Glucose (UA) Negative Urine Ketones Trace H Urine Blood Negative Urine Nitrite Negative Urine Bilirubin Negative Urine Urobilinogen Negative Ur Leukocyte Esterase Negative Diagnostic Findings Abdomen/Pelvis CT 05/22/24 15:52 EXAM: CT abd pelvis IV con only CLINICAL HISTORY: N/V/D; abdominal pain. TECHNIQUE: CT of the abdomen and pelvis was performed with contrast, with the following protocol: axial images with, and reconstructed coronal and sagittal images. One of the following dose reduction techniques was utilized for this exam: Automated exposure control, adjustment of the mA and/or kV according to patient size, and use of iterative reconstruction. COMPARISON: Comparison is made with 07/16/2022. FINDINGS: Abdomen: Liver: Normal in shape, and density. 17 cm enlarged in size. No focal lesions, cysts, or masses were identified. Hepatic vasculature is unremarkable. The intrahepatic biliary ducts are dilated. Small air focus at hepatic segment IV, likely intrabiliary. Gallbladder and Biliary System: The gallbladder is surgically removed. The CBD is dilated measuring up to 1.2 cm. Pancreas: Pancreatic head, body, and tail are visualized and appear normal in size and density. No pancreatic masses or calcifications were noted. The pancreatic duct is not dilated. Spleen: Normal in size, shape, and density. No splenic lesions or masses were identified. Appendix: The appendix is normal in size without lediy appendiceal fat stranding, and without an appendicolith. No evidence of appendiceal abscess or perforation. Kidneys and Adrenal Glands: Both kidneys are normal in size, shape, and position. Cortical thickness is within normal limits. Small cortical cyst in the left. No renal calculi or hydronephrosis. Adrenal glands are unremarkable with no evidence of masses or hyperplasia. Pelvis: Urinary Bladder: Normal in contour and wall thickness. No intraluminal lesions identified., however air specks are not could iatrogenic Uterus: Not visualized correlate with surgery Peritoneal and Retroperitoneal Structures: No free fluid or abnormal fluid collections were identified within the abdomen or pelvis. No lymphadenopathy was noted. Mild congested apperance of the mesentery. Bowel: The visualized bowel loops are normal in caliber and appearance. No evidence of bowel obstruction or wall thickening. Bones and Soft Tissues: The visualized bones show degnerative changes No fractures or abnormal masses were identified. IMPRESSION: 1. Stable dilatation of the common bile duct measuring up 1.2 cm and new intrahepatic biliary dilatation with small air in hepatic segment IV, likely pneumobilia. Suggest clinical correlation and MRCP if clinically warranted. 2. Mild hepatomegaly. 3. Small left renal cortical cyst. Electronically signed by Jovani Guzman 05-22-2024 6:29 PM Cholangiopancreatography MRI 05/22/24 18:45 Exam(s): MRI MRCP EXAM: MR Abdomen Without Intravenous Contrast, MRCP Protocol CLINICAL HISTORY: cbd 1.2cm dilitation.. TECHNIQUE: Multiplanar magnetic resonance images of the abdomen without intravenous contrast using MRCP protocol. COMPARISON: MRCP 07/16/2022; CT abdomen and pelvis with contrast performed at 1703 hrs. FINDINGS: Bile ducts: The common hepatic duct is dilated measuring 13 mm proximal to the cystic duct remnant. This is increased from 10 mm on the previous MRCP examination. The common bile duct remains dilated to the ampulla. No choledocholithiasis noted. No significant intrahepatic biliary dilatation. Gallbladder: Status post cholecystectomy. Liver: Unremarkable. Pancreas: Unremarkable. No ductal dilation. Spleen: Unremarkable. No splenomegaly. Adrenals: Unremarkable. No mass. Kidneys and ureters: Unremarkable. No hydronephrosis. Stomach and bowel: Unremarkable. No obstruction. IMPRESSION: The common hepatic duct is dilated measuring 13 mm proximal to the cystic duct remnant. This is increased from 10 mm on the previous MRCP examination. The common bile duct remains dilated to the ampulla. No choledocholithiasis noted. No significant intrahepatic biliary dilatation. Correlate with bilirubin levels as this could represent normal adaptive ectasia/reservoir effect following cholecystectomy or represent developing stricture at the ampulla. If there is laboratory findings concerning for biliary stasis, manometric evaluation of the ampulla may be appropriate. Electronically signed by: Sukumar Watkins MD 05/22/24 23:05 PM Medications Administered NSS 2L IV Ondansetron 4mg IV Morphine 4mg IV x 3 Lorazepam 0.5mg IV Code Status & VTE Plan Code Status Full Supervising Physician Co-Signing Physician Notes Patient seen and examined, chart reviewed, case discussed with TAI Mazariegos and I agree with the assessment and plan as above. In brief, patient is a 54yho female presenting with intractable abdominal pain and nausea, ongoing x 5 days. Unable to tolerate PO. Patient with chronic pancreatitis. On exam she is sitting up in bed, uncomfortable SKin - no jaundice HEENT - MMM, Neck supple Heart - +S1/S2, regular, no m/r/g Lungs - CTA Abd - tenderness in epigastric and LUQ with some voluntary guarding Ext - no edema Labs and images reviewed [id number], chronically elevated Assessment/Plan Intractable abdominal pain - possibly secondary to chronic pancreatitis MRI findings with dilation of common hepatic duct - increased form prior. BIlirubin is NORMAL -GI consultation - was discussed with superintendent production GI prior to admission -Pain control with Morphine, Dilaudid PRN -Remainder as above PG Care Time/CCT Total # of Minutes Spent Total Time Spent with Patient: Total time spent is greater than 50% in coordination of care (as documented) at patient's floor/unit and/or counseling patient: Coding Level of Care Code 49381 INT INP/OBS CARE 375MIN Diagnoses Intractable epigastric abdominal pain R10.13
[2024-05-23] MEDS ORDERED: HYDROmorphone INJ 0.5 MG/0.5 ML SYR IV PRN (01:41)
[2024-05-23] MEDS ORDERED: MoRPHine SULFATE 2 MG/ML CARP IV PRN (01:45)
[2024-05-23] MEDS ORDERED: ALUMINUM/MAGNESIUM SUSP 30 ML UDC PO PRN (01:47)
[2024-05-23] MEDS: LACTATED RINGER'S 1,000 ML IV STA (02:10)
[2024-05-23] MEDS ORDERED: clonazePAM 1 MG TAB PO PRN (02:23)
[2024-05-23] MEDS ORDERED: ONDANSETRON INJ 2 MG/ML 2 ML VIAL IV PRN (02:23)
[2024-05-23] MEDS: MoRPHine SULFATE 4 MG/ML 1 ML CARP\\VIAL IV PRN (02:47)
[2024-05-23] MEDS: HYDROmorphone INJ 0.5 MG/0.5 ML SYR IV PRN (05:32)
[2024-05-23] MEDS: PANCREAZE (LIPASE 10,500U) CAP PO SCH (09:44)
[2024-05-23] MEDS: TOPIRAMATE 25 MG TAB PO SCH ×2 (09:44→11:24)
[2024-05-23] MEDS: buPROPion XL 300 MG TABCR PO SCH (09:45)
[2024-05-23] MEDS: GABAPENTIN 800 MG TAB PO SCH (09:45)
[2024-05-23] MEDS: busPIRone 5 MG TAB PO SCH (09:45)
[2024-05-23] MEDS: FLUoxetine HCL 20 MG CAP PO SCH (09:46)
--- NOTE | 2024-05-23 14:20 | Gastrointestinal Consultation ---
Date of Consultation May 23, 2024 Assessment & Plan (1) Intractable epigastric abdominal pain: (2) Nausea: (3) Common bile duct dilatation: Will recheck liver panel and Lipase now No evidence of acute need for ERCP. Will need EUS/ERCP as outpatient most likely. Continue NPO, Narcotic analgesics and antiemetics as needed Will follow clinical course and make further recommendations as needed. History of Present Illness Reason for Consultation: Intractable abdominal pain and nausea Attending Physician: Edgar Vergara MD, PhD History of Present Illness 54 yo CF with a PMHx of prior cholecystectomy, s/p ERCP with biliary sphincterotomy and chronic pancreatitis who presented to the ER last evening with complaints of epigastric abdominal pain and nausea. She underwent upper endoscopy, endoscopic ultrasound, and ERCP 07/19/2022. Upper endoscopy notable for diffuse gastritis, endoscopic ultrasound notable for modest dilation of the bile duct to 9 mm with atrophy of the pancreas no evidence of mass or cyst. ERCP performed with biliary sphincterotomy, patient was found to have mild papillary stenosis. Upper EUS findings are consistent with chronic pancreatitis. She follows with [facility] and recently had her Creon increased. She states that over the past 5 days she has had worsening symptoms of abdominal pain, like prior episodes of pancreatitis. She did have a normal Lipase in the ER, however, her CT abd/pelvis and MRCP did show a slight increase in bile and hepatic duct size. Her liver panel was normal, and she has not had any fevers or chills, but she was admitted for pain control and supportive care. At the time I saw her today she continued to have 7/10 epigastric abdominal pain radiating to her back. She states the pain meds are helping and she said she would like to eat something, but is afraid. She denies any fevers, chills, nausea, vomiting, hematemesis, melena, or hematochezia. She further denies any jaundice, acholic stools, dark, urine or pruritus. She has no further complaints. Allergies Allergy/AdvReac Type Severity Reaction Status Date / Time rizatriptan Allergy Severe Difficulty Verified 11/15/23 13:30 Breathing benzoin Allergy Intermediate USED TO Verified 11/15/23 13:30 PUT UNDER STERI STRIPS TO KEEP THEM ON -- BLISTERS tramadol AdvReac Intermediate N/V Verified 11/15/23 13:30 Home Medications Medication Instructions Recorded Confirmed Type clonazepam 1 mg tablet (Klonopin) 1 mg PO BID PRN Anxiety 02/10/18 05/23/24 History bupropion HCl 150 mg 24 hr tablet, 300 mg PO QAM 09/19/19 05/23/24 History extended release (Wellbutrin XL) gabapentin 400 mg capsule 1,600 mg PO 2XD 06/26/20 05/23/24 History buspirone 10 mg tablet 20 mg PO BID 06/21/22 05/23/24 History gmpmaw-xtweichv-wtfvfib 1 cap PO 3XD 09/24/23 05/23/24 History 24,000-76,000-120,000 unit capsule,delayed rel (Creon) oxycodone-acetaminophen 7.5 mg-325 1 tab PO Q4H PRN Pain 09/24/23 05/23/24 H istory mg tablet (Percocet) montelukast 10 mg tablet 10 mg PO DAILY PRN Allergy Symptoms 11/15/23 05/23/24 History fluoxetine 20 mg capsule 20 mg PO DAILY 05/23/24 05/23/24 History nitrofurantoin 1 cap PO 2XD 05/23/24 05/23/24 History monohydrate/macrocrystals 100 mg capsule (Macrobid) topiramate 50 mg tablet (Topamax) 25 mg PO 2XD 05/23/24 05/23/24 History Patient History Medical History Urge and stress incontinence Urinary retention MDD (major depressive disorder) NEL (generalized anxiety disorder) Chronic recurrent pancreatitis most recent spring 2022, currently taking creon w/ all meals Hx of migraines Osteoarthritis Peripheral neuropathy Cervical disc herniation (02/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 TOTAL OF 3 FUSIONS ([employer]). LIMITED RANGE TO LEFT. HAS BEEN INTUBATED SINCE. Cervical Arthroplasty C4-C5 02/18/14: MAC #3, ETT #7.0, Grade 1 View, Smooth intubation on 1st attempt Hx of abdominal surgery (10/25/21) p Diagnostic Laparoscopy with Pelvic Washings(Not Applicable) - Sukumar Wood DO s Laparoscopic Cholecystectomy - Sukumar Wood DO H/O wrist surgery right wrist, ganglion cyst removed History of mandibular surgery for TMJ; ROM "is good" H/O hand surgery repair of hand injury due to a dog bite Hx of cystoscopy (~08/15/20) TURBT with stent placement [facility] S/P ureteral stent placement History of esophagogastroduodenoscopy (EGD) History of robot-assisted laparoscopic hysterectomy History of breast biopsy x3, benign Hx of lumpectomy LEFT (BENIGN) S/P hardware removal CERVICAL History of cystoscopy duplicate Family History Father Cardiac disorder Malignant neoplasm of colon Prostate cancer Colorectal cancer Aunt Breast cancer Denies family history of Ovarian cancer Social History Smoking Status: Never smoker Second Hand Exposure: No; Do You Dip or Chew Tobacco: No; Hx Alcohol Use: No Hx Substance Use: No Preferred Language: Luxembourgish Communication Ability: Effective Visual Impairment: No Limitations Office Equipment Mechanic Required: No Beliefs That Will Affect Care: None marital status: Current Living Situation: Spouse and Family Current Living Situation Comment: at home How many Children do You have: 2 Other Information That Helps Us Care for You: No Feels Safe at Home: Yes Safety Concerns: Feels Safe At This Time Assistive Devices: Glasses Review of Systems Review of Systems: All systems reviewed & are unremarkable except as noted in HPI & below Physical Exam Constitutional: WD/WN, vitals as above Eyes: + anicteric sclerae Respiratory: normal respiratory effort, lungs clear to auscultation Cardiovascular: RRR, no murmur, no edema Gastrointestinal (Abdomen): Inspection/Auscultation: normal bowel sounds; abdomen not distended Percussion/Palpation: + abdomen tender and abdomen soft; no guarding and abdomen not rigid Skin: no rashes, warm and dry Psychiatric: A+Ox3, euthymic affect Results & Data Vital Signs (Past 12 Hours) Vital Signs Temp Pulse Resp BP Pulse Ox O2 Del Method 05/23/24 06:46 36.5 C 72 16 121/73 97 Room Air 05/23/24 02:23 36.6 C 84 14 125/74 95 Room Air PG Care Time/CCT Total # of Minutes Spent Total Time Spent with Patient: Total time spent is greater than 50% in coordination of care (as documented) at patient's floor/unit and/or counseling patient: Coding Level of Care Code 45294 IN/OBS CONSULT LVL 4,60M Diagnoses Intractable epigastric abdominal pain R10.13 Nausea R11.0 Common bile duct dilatation K83.8
[2024-05-23 15:22] LABS: Albumin Globulin Ratio 2.1 (0.9-2); Albumin Level 3.8 gm/dl (3.4-5.0); BUN Creatinine Ratio 11.6 (10-20); Bilirubin,Total 0.6 mg/dl (0.2-1.0); Calcium 9.1 mg/dl (8.6-10.3); Globulin 1.8 gm/dl (2.5-4.0); Potassium 3.9 mmol/L (3.5-5.1); Total Protein 5.6 gm/dl (6.0-8.3)
[2024-05-23] MEDS: HYDROmorphone INJ 1 MG/ML SYRINGE IV PRN (17:50)
[2024-05-23] MEDS: MELATONIN 3 MG TAB PO PRN (20:36)
--- NOTE | 2024-05-23 21:42 | Hospitalist Progress Note ---
Date of Service May 23, 2024 Assessment & Plan (1) Intractable epigastric abdominal pain: Plan 54 years old female with PMH of FULL CODE @ home, generalized anxiety disorder, major depression, SBO and acute cholecystitis, s/p laparoscopic cholecystectomy (10/25/2021, 11:55am, [facility], [place] General Surgeon Dr. Sukumar Wood), followed by subsequent episodes/hospitalizations for intractable epigastric abdominal pain, chronic recurrent pancreatitis, who presented to [facility] [place] ER on 05/23/2024 for N/V/D and typical pain x 5 days. No signs of infection, slightly elevated BUN/creatinine ratio, and alkaline phosphatase of 117 (elevated at patient's baseline). Normal lipase, and CTAP revealing only finding being intrahepatic biliary dilatation with small antibiotics-IV likely pneumobilia. MRCP was completed with slight increase in CHD dilatation now being 13 mm, or stable findings from prior imaging. Patient was subsequently placed in OBSERVATION on the hospitalist service @ [facility], [place] on 05/23/2024 with the following diagnoses: 1. Intractable abdominal pain/history of pancreatitis/cholecystectomy History of chronic pancreatitis, on Creon. Unclear origin of pain at time of admission. Patient has been seen by GI in the past while hospitalized for similar instances on multiple occasions. Also been seen by pain management regarding this type of abdominal pain during her prior hospitalization. h/o alcohol abuse in the past, denying any current EtOH use. Only changes in imaging is slightly larger dilatation of CHD and small air in hepatic segment IV. Otherwise, no changes. - CBC without leukocytosis, CMP with alkaline phosphatase 117 which is chronic for patient, and lipase 75. UA without signs of infection. - CTAP stable dilatation of common bile duct measuring 1.2 cm, no intrahepatic biliary dilatation with small air in hepatic segment IV, likely pneumobilia - MRCP hepatic duct dilated 13 mm, increased from 10 mm on previous MRCP, no choledocholithiasis, CBD dilated to ampulla. - Morphine for pain management, zofran prn, maalox prn - LR maintenance fluids @ 80 mL/h x 1 L - BMP am - GI consulted- appreciate input + recs #Previously dx UTI- States she was dx w/ UTI as outpatient; UA at admission w/o bacteria, finished 4/10 days of Macrobid- D/c abx as no evidence of UTI at admission 2. Generalized anxiety disorder, major depression. No suicidal ideation. Asymptomatic on clonazepam bid prn anxiety, buspirone; bupropion, and fluoxetine 3. Chronic cervical radiculopathy. Asymptomatic on gabapentin Dispo: Admit, med/sx VTE Prophylaxis: SCDs, encourage ambulation This document was dictated utilizing [employer]. Please excuse any grammatical errors that may be secondary to use of this software. Admission and Anticipated Discharge Date Admission Date: May 23, 2024 Subjective "My belly hurts; it's a 5 (out of 10 point intensity scale). I don't have any nausea or vomiting or diarrhea. It seems like the dilaudid wears off after about 1 hour. I get morphine too, but it doesn't seem to work as well as the dilaudid." Review of Systems Constitutional: Positive for generalized abdominal pain. Negative for antecedent/coincident fevers, chills, diaphoresis, cough, wheeze, sore throat, hemoptysis, chest pains, palpitations, pleurisy, nausea, vomiting, diarrhea, pelvic pain, hematemesis, hematochezia, melena, hematuria, dysuria, frequency, urgency, headaches, dizziness, lightheadedness, visual changes, hearing changes, weakness, falls, syncope, trauma, travel history, sick contacts, or food/drug ingestions novel or new. All other review of systems are reported as negative by the patient on 05/23/2024. Physical Exam Constitutional: General: Comfortable, coherent, cooperative. Wide awake and alert. Not confused, lethargic, or obtunded. Patient speaks in complete, fluent, and articulate sentences without pause, interruption, cough, or wheeze. HEENT: NC/AT. EOMI, PERRL. No nystagmus, gaze paresis, anisocoria, miosis, mydriasis, hyphema, chemosis, scleral icterus, conjunctivitis, or pterygium. No otorrhea, no rhinorrhea. No pharyngeal discharge or erythema. Neck: Supple, no stridor, bruit, goiter, or hepatojugular reflux. Jugular venous pressure is estimated to be 8 cm above the sternal angle of Rashi, which is typically 5 cm above the level of the right atrium. Hence, there is no jugular venous distention noted on 05/23/2024. Lymphatics: No pre-post auricular, anterior/posterior cervical, supraclavicular/infraclavicular, axillary, epitrochlear, or inguinal adenopathy. Chest: Symmetric rise and fall with respirations. Non-tender to palpation. Heart: RRR, S1 and S2 noted. No S3 or S4 summation gallop noted. No tripartite friction rub. Grade II/ early systolic murmur @ LLSB without radiation to the carotids, axilla, or back, and which remains invariant in regards to the respiratory cycle. Lungs: Clear to auscultation and percussion. No audible expiratory wheeze, egophony, pectoriloquy, increase in tactile fremitus, or flatness/dullness to percussion at the bases. Abdomen: Soft, non-tender, non-distended. No rebound, guarding, Thomas's sign, or organomegaly. Bowel sounds auscultated in all 4 quadrants. Extremities: No clubbing, cyanosis, or edema. 2+ pedal pulses bilaterally. Skin: No exanthem or enanthem or decubitus ulcer. Neurology: Alert and oriented in regards to person, place, time, and situation. DTR+ and symmetric. 5/5 motor strength in all 4 extremities, both proximally and distally. No myoclonus, tremors, or tics. Urology: No diez catheter. No urethral discharge. Psychiatry: Appropriate affect. Smiles occasionally. No homicidal/suicidal ideation Results & Data Results & Data Vital Signs (Past 12 Hours) Vital Signs Temp Pulse Resp BP BP Pulse Ox O2 Del Method 05/23/24 18:58 36.4 C L 77 16 127/77 93 Room Air 05/23/24 15:23 73 18 132/82 94 Room Air PG Care Time/CCT Total # of Minutes Spent Total Time Spent with Patient: Total time spent is greater than 50% in coordination of care (as documented) at patient's floor/unit and/or counseling patient: Coding Level of Care Code 36927 SUB INP/OBS CARE 2/35MIN Diagnoses Intractable epigastric abdominal pain R10.13
[2024-05-24 07:38] LABS: BUN Creatinine Ratio 7.2 (10-20); Calcium 9.5 mg/dl (8.6-10.3); Potassium 3.6 mmol/L (3.5-5.1)
[2024-05-24 09:38] LABS: Albumin Level 4.2 gm/dl (3.4-5.0); Bilirubin Direct 0.1 mg/dl (0-0.2); Bilirubin,Total 0.5 mg/dl (0.2-1.0); Total Protein 6.2 gm/dl (6.0-8.3)
--- NOTE | 2024-05-24 13:15 | Gastroenterology Progress Note ---
Date of Service May 24, 2024 Assessment & Plan (1) Common bile duct dilatation: (2) Transaminitis: (3) Abdominal pain: Plan: Attempt to advance diet No evidence of emergent need for ERCP/EUS, but will need evaluation as an outpatient Continue narcotic analgesics and antiemetics Will follow clinical course and make further recommendations as needed. Admission and Anticipated Discharge Date Admission Date: May 23, 2024 Subjective Still complaining of epigastric pain 5/10 in intensity only alleviated with narcotic analgesics. She denies any fevers, chills, nausea or vomiting at present. She is asking for something to eat. She denies any further complaints. Review of Systems Review of Systems: All systems reviewed & are unremarkable except as noted in HPI & below Physical Exam Constitutional: WD/WN, vitals as above Respiratory: normal respiratory effort, lungs clear to auscultation Cardiovascular: RRR, no murmur, no edema Gastrointestinal (Abdomen): Inspection/Auscultation: normal bowel sounds; abdomen not distended Percussion/Palpation: + abdomen tender (Epigastric ) and abdomen soft; no guarding and abdomen not rigid Skin: no rashes, warm and dry Psychiatric: A+Ox3, euthymic affect Results & Data Results & Data Vital Signs (Past 12 Hours) Vital Signs Temp Pulse Resp BP Pulse Ox O2 Del Method 05/24/24 08:17 37 C 88 18 126/76 96 Room Air PG Care Time/CCT Total # of Minutes Spent Total Time Spent with Patient: Total time spent is greater than 50% in coordination of care (as documented) at patient's floor/unit and/or counseling patient: Coding Level of Care Code 98933 SUB INP/OBS CARE 3/50MIN Diagnoses Common bile duct dilatation K83.8 Transaminitis R74.01 Abdominal pain R10.9
--- NOTE | 2024-05-24 16:19 | Hospitalist Progress Note ---
Date of Service May 24, 2024 Assessment & Plan (1) Intractable epigastric abdominal pain: Plan: Etiology unclear. Await formal [facility] GI Service evaluation with patient's GI Dr. Gordon Hernandez in the 05/25/2024 am. s/p laparoscopic cholecystectomy (10/25/2021, 11:55am, [facility] General Surgeon Dr. Sukumar Wood). s/p biliary sphincterotomy with ERCP done (07/19/2022, 2:26pm, [facility] GI Dr. Neel Vaughn). Plan 54 years old female with PMH of FULL CODE @ home, generalized anxiety disorder, major depression, SBO and acute cholecystitis, s/p laparoscopic cholecystectomy (10/25/2021, 11:55am, [facility] General Surgeon Dr. Sukumar Wood), followed by subsequent episodes/hospitalizations for intractable epigastric abdominal pain, chronic recurrent pancreatitis, who presented to [facility] ER on 05/23/2024 for N/V/D and typical pain x 5 days. No signs of infection, slightly elevated BUN/creatinine ratio, and alkaline phosphatase of 117 (elevated at patient's baseline). Normal lipase, and CTAP revealing only finding being intrahepatic biliary dilatation with small antibiotics-IV likely pneumobilia. MRCP was completed with slight increase in CHD dilatation now being 13 mm, or stable findings from prior imaging. Patient was subsequently placed in OBSERVATION on the hospitalist service @ [facility] on 05/23/2024 with the following diagnoses: 1. Intractable abdominal pain/history of pancreatitis/cholecystectomy History of chronic pancreatitis, on Creon. Unclear origin of pain at time of admission. Patient has been seen by GI in the past while hospitalized for similar instances on multiple occasions. Also been seen by pain management regarding this type of abdominal pain during her prior hospitalization. h/o alcohol abuse in the past, denying any current EtOH use. Only changes in imaging is slightly larger dilatation of CHD and small air in hepatic segment IV. Otherwise, no changes. Await formal [facility] GI Service evaluation with patient's GI Dr. Gordon Hernandez in the 05/25/2024 am. s/p laparoscopic cholecystectomy (10/25/2021, 11:55am, [facility] General Surgeon Dr. Sukumar Wood). s/p biliary sphincterotomy with ERCP done (07/19/2022, 2:26pm, [facility] GI Dr. Neel Vaughn). Chronic medical conditions: 2. Generalized anxiety disorder, major depression. No suicidal ideation. Asymptomatic on clonazepam bid prn anxiety, buspirone; bupropion, and fluoxetine. 3. Chronic cervical radiculopathy. Asymptomatic on gabapentin. Dispo: Admit, med/sx VTE Prophylaxis: SCDs, encourage ambulation Admission and Anticipated Discharge Date Admission Date: May 23, 2024 Subjective "My belly still hurts today; it is a 5 (out of 10 pain intensity scale). The dilaudid (1mg IV q4 prn) you ordered helps to keep the pain bearable. I am not nauseated and I am not vomiting. No diarrhea at all. My GI doctor from [facility], Dr. Gordon Hernandez, will be here tomorrow to figure out why my belly still hurts even after I had my gallbladder removed (10/25/2021, 11:55am, [facility] General Surgeon Dr. Sukumar Wood, laparoscopic cholecystectomy for acute cholecystitis and diagnostic laparoscopy with pelvic washings for acute SBO); after that, I had a biliary sphincterotomy with ERCP done (07/19/2022, 2:26pm, [facility] GI Dr. Neel Vaughn Review of Systems Constitutional: Positive for generalized abdominal pain. Negative for antecedent/coincident fevers, chills, diaphoresis, cough, wheeze, sore throat, hemoptysis, chest pains, palpitations, pleurisy, nausea, vomiting, diarrhea, pelvic pain, hematemesis, hematochezia, melena, hematuria, dysuria, frequency, urgency, headaches, dizziness, lightheadedness, visual changes, hearing changes, weakness, falls, syncope, trauma, travel history, sick contacts, or food/drug ingestions novel or new. All other review of systems are reported as negative by the patient on 05/24/2024. Physical Exam Constitutional: General: Comfortable, coherent, cooperative. Wide awake and alert. Not confused, lethargic, or obtunded. Patient speaks in complete, fluent, and articulate sentences without pause, interruption, cough, or wheeze. HEENT: NC/AT. EOMI, PERRL. No nystagmus, gaze paresis, anisocoria, miosis, mydriasis, hyphema, chemosis, scleral icterus, conjunctivitis, or pterygium. No otorrhea, no rhinorrhea. No pharyngeal discharge or erythema. Neck: Supple, no stridor, bruit, goiter, or hepatojugular reflux. Jugular venous pressure is estimated to be 8 cm above the sternal angle of Rashi, which is typically 5 cm above the level of the right atrium. Hence, there is no jugular venous distention noted on 05/24/2024. Lymphatics: No pre-post auricular, anterior/posterior cervical, supraclavicular/infraclavicular, axillary, epitrochlear, or inguinal adenopathy. Chest: Symmetric rise and fall with respirations. Non-tender to palpation. Heart: RRR, S1 and S2 noted. No S3 or S4 summation gallop noted. No tripartite friction rub. Grade II/ early systolic murmur @ LLSB without radiation to the carotids, axilla, or back, and which remains invariant in regards to the respiratory cycle. Lungs: Clear to auscultation and percussion. No audible expiratory wheeze, egophony, pectoriloquy, increase in tactile fremitus, or flatness/dullness to percussion at the bases. Abdomen: Soft, non-tender after receiving dilaudid 1mg IV q4 prn x 4 doses (05/24/2024, 12:40am, 6:23am, 11:05am,3:40pm), non-distended. No rebound, guarding, Thomas's sign, or organomegaly. Bowel sounds auscultated in all 4 quadrants. Extremities: No clubbing, cyanosis, or edema. 2+ pedal pulses bilaterally. Skin: No exanthem or enanthem or decubitus ulcer. Neurology: Alert and oriented in regards to person, place, time, and situation. DTR+ and symmetric. 5/5 motor strength in all 4 extremities, both proximally and distally. No myoclonus, tremors, or tics. Urology: No diez catheter. No urethral discharge. Psychiatry: Appropriate affect. Smiles occasionally. No homicidal/suicidal ideation Results & Data Results & Data Vital Signs (Past 12 Hours) Vital Signs Temp Pulse Resp BP Pulse Ox O2 Del Method 05/24/24 15:13 36.6 C 76 18 125/74 93 Room Air 05/24/24 08:17 37 C 88 18 126/76 96 Room Air Laboratory Results cf., AST 15, ALT 14, ALK PHOS 117, TBili 0.6 (05/22/2024, 2:20pm). cf., AST 312, ALT 232, ALK PHOS 218, TBili 0.6 (05/23/2024, 2:19pm). cf., AST 129, ALT 181, ALK PHOS 222, TBili 0.5 (05/24/2024, 9:02am). cf., WBC 7.26, N58 L31 M5 E4 B1 (05/22/2024, 2:20pm). Diagnostic Findings CT abd/pelvis with IV contrast (05/22/2024, 3:52pm): 1. Stable dilatation of the common bile duct measuring up 1.2 cm and new intrahepatic biliary dilatation with small air in hepatic segment IV, likely pneumobilia. Suggest clinical correlation and MRCP if clinically warranted. 2. Mild hepatomegaly. 3. Small left renal cortical cyst. MRCP (05/22/2024, 6:45pm): 1. Common hepatic duct is dilated measuring 13 mm proximal to the cystic duct remnant. This is increased from 10 mm on the previous MRCP examination. The common bile duct remains dilated to the ampulla. No choledocholithiasis noted. No significant intrahepatic biliary dilatation. Correlate with bilirubin levels as this could represent normal adaptive ectasia/reservoir effect following cholecystectomy or represent developing stricture at the ampulla. If there is laboratory findings concerning for biliary stasis, manometric evaluation of the ampulla may be appropriate. PG Care Time/CCT Total # of Minutes Spent Total Time Spent with Patient: Total time spent is greater than 50% in coordination of care (as documented) at patient's floor/unit and/or counseling patient: Coding Level of Care Code 16833 SUB INP/OBS CARE 2/35MIN Diagnoses Intractable epigastric abdominal pain R10.13
[2024-05-24 17:36] LABS: Basophils # (auto) 0.06 K/uL (0.00-0.20); Basophils % (auto) 1.3 %; Eosinophils # (auto) 0.43 K/uL (0.00-0.50); Hemoglobin 12.5 g/dl (12.0-16.0); Immature Granulocytes # (auto) 0.01 K/uL (0.01-0.20); Immature Granulocytes % (auto) 0.2 %; Lymphocytes # (auto) 2.06 K/uL (1.20-3.40); Mean Corpuscular Hemoglobin 32.6 pg (25.0-34.0); Mean Corpuscular Hgb Conc 33.8 g/dL (32.0-36.0); Mean Corpuscular Volume 96.4 fL (80.0-100.0); Mean Platelet Volume 10.3 fL (9.4-12.4); Monocytes # (auto) 0.36 K/uL (0.11-0.59); Monocytes % (auto) 7.5 %; Neutrophils # (auto) 1.87 K/uL (1.40-6.50); Platelet Count 310 K/uL (130-400); RDW Coefficient of Variation 12.3 % (11.5-14.5); RDW Standard Deviation 43.8 fL (36.4-46.3); Red Blood Count 3.84 M/uL (4.20-5.40); White Blood Count 4.79 K/ul (4.8-10.8)
--- NOTE | 2024-05-25 08:55 | Pain Management Consultation ---
Date of Consultation May 25, 2024 Assessment & Plan (1) Intractable epigastric abdominal pain: (2) Nausea: (3) Nausea vomiting and diarrhea: (4) History of pancreatitis: Plan 1. I have added Baclofen 10mg TID to treat any potential myofascial component of pain. 2. I also added Voltaren gel to be applied to the abdomen. 3. Continue IV Dilaudid/Morphine PRN pain. 4. Consider Oxycodone and diminish IV pain medication use. 5. I would not consider a celiac plexus nerve block at this time as she is not a candidate for neurolysis. 6. Thank you for the consultation. Please contact with any questions or concerns. History of Present Illness Attending Physician: Marcos Hayes MD History of Present Illness This is a 54-year-old female with a significant history of prior pancreatitis, cholecystitis requiring cholecystectomy, and common bile duct dilatation. She states that the pain in the epigastric region as well as the left upper abdomen started about 1 week ago without any cause. She states that this pain does feel similar to previous episodes, most recently about 2 years ago. She describes an aching, cramping, burning pain along the epigastric region as well as the left upper abdomen and the pain will radiate bilaterally to the back. She has found eating food to cause increased nausea and vomiting so she did fast for several days. Over the last several days she has been receiving IV Dilaudid and morphine for pain relief which is moderately efficacious. She does find some relief with applying a heating pad on to the abdomen. Nausea and vomiting has since improved. She has been able to eat typically receiving IV Dilaudid prior to her meals. Denies any urinary symptoms, fevers, chills. Case discussed with Dr. Silver Allergies Allergy/AdvReac Type Severity Reaction Status Date / Time rizatriptan Allergy Severe Difficulty Verified 11/15/23 13:30 Breathing benzoin Allergy Intermediate USED TO Verified 11/15/23 13:30 PUT UNDER STERI STRIPS TO KEEP THEM ON -- BLISTERS tramadol AdvReac Intermediate N/V Verified 11/15/23 13:30 Home Medications Medication Instructions Recorded Confirmed Type clonazepam 1 mg tablet (Klonopin) 1 mg PO BID PRN Anxiety 02/10/18 05/23/24 History bupropion HCl 150 mg 24 hr tablet, 300 mg PO QAM 09/19/19 05/23/24 History extended release (Wellbutrin XL) gabapentin 400 mg capsule 1,600 mg PO 2XD 06/26/20 05/23/24 History buspirone 10 mg tablet 20 mg PO BID 06/21/22 05/23/24 History cypjqd-jxskwkqw-giwrvnv 1 cap PO 3XD 09/24/23 05/23/24 History 24,000-76,000-120,000 unit capsule,delayed rel (Creon) oxycodone-acetaminophen 7.5 mg-325 1 tab PO Q4H PRN Pain 09/24/23 05/23/24 History mg tablet (Percocet) montelukast 10 mg tablet 10 mg PO DAILY PRN Allergy Symptoms 11/15/23 05/23/24 History fluoxetine 20 mg capsule 20 mg PO DAILY 05/23/24 05/23/24 History nitrofurantoin 1 cap PO 2XD 05/23/24 05/23/24 History monohydrate/macrocrystals 100 mg capsule (Macrobid) topiramate 50 mg tablet (Topamax) 25 mg PO 2XD 05/23/24 05/23/24 History Patient History Medical History Urge and stress incontinence Urinary retention MDD (major depressive disorder) NEL (generalized anxiety disorder) Chronic recurrent pancreatitis most recent spring 2022, currently taking creon w/ all meals Hx of migraines Osteoarthritis Peripheral neuropathy Cervical disc herniation (02/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 TOTAL OF 3 FUSIONS ([employer]). LIMITED RANGE TO LEFT. HAS BEEN INTUBATED SINCE. Cervical Arthroplasty C4-C5 02/18/14: MAC #3, ETT #7.0, Grade 1 View, Smooth intubation on 1st attempt Hx of abdominal surgery (10/25/21) p Diagnostic Laparoscopy with Pelvic Washings(Not Applicable) - Sukumar Wood DO s Laparoscopic Cholecystectomy - Sukumar Wood DO H/O wrist surgery right wrist, ganglion cyst removed History of mandibular surgery for TMJ; ROM "is good" H/O hand surgery repair of hand injury due to a dog bite Hx of cystoscopy (~08/15/20) TURBT with stent placement [facility] S/P ureteral stent placement History of esophagogastroduodenoscopy (EGD) History of robot-assisted laparoscopic hysterectomy History of breast biopsy x3, benign Hx of lumpectomy LEFT (BENIGN) S/P hardware removal CERVICAL History of cystoscopy duplicate Family History Father Cardiac disorder Malignant neoplasm of colon Prostate cancer Colorectal cancer Aunt Breast cancer Denies family history of Ovarian cancer Social History Smoking Status: Never smoker Second Hand Exposure: No; Do You Dip or Chew Tobacco: No; Hx Alcohol Use: No Hx Substance Use: No Preferred Language: Canadian Communication Ability: Effective Visual Impairment: No Limitations Audience Development Manager Required: No Beliefs That Will Affect Care: None marital status: Current Living Situation: Spouse and Family Current Living Situation Comment: at home How many Children do You have: 2 Other Information That Helps Us Care for You: No Feels Safe at Home: Yes Safety Concerns: Feels Safe At This Time Assistive Devices: Glasses Physical Exam Physical Exam: GENERAL: This is a 54 year old female. Appears in moderate discomfort. Holding heating pad on the abdomen. HEAD/FACE: Normocephalic and atraumatic. EYES: No drainage or conjunctival injection. ENT: Nose without bleeding or discharge. Oral mucosa moist. NECK: Full ROM without apparent pain. No swelling or masses noted. RESPIRATORY: Patient with unlabored breathing. No signs of respiratory distress. CHEST/AXILLA: Chest movement symmetrical. No deformities noted. ABDOMEN/GI: No distension. There is tenderness along the epigastric and left upper abdomen. No peritoneal signs. No abdominal wall trigger points noted. BACK: Moves without difficulty SKIN: Jewell, warm and dry. No rash noted. MS/EXTREMITY: No swelling, no deformities. Moving extremities appropriately. NEURO: Alert and appears oriented. Speech is fluent. Cranial Nerves are grossly intact. PSYCH: Alert, pleasant, affect is calm
[2024-05-25] MEDS: BACLOFEN 10 MG TAB PO SCH (09:38)
--- OUTSIDE RECORDS SUMMARY | 2024-05-25 09:39 | External Medical Summary | Continuity of Care Document ---
Author Name Unknown Organization [facility] [address] [place] [address] KENYA MEREDITH [id number] Care Team Providers Care Oyster Preparer Name Role Phone Meghan Osullivan Primary Care Physician [phone] Encounter [facility] [id number] Date(s): 05/20/24 - 05/20/24 [facility] [address] [facility] [address], [address], [address] KENYA Ordonez [address] [phone] Encounter Diagnosis Frequent UTI(Discharge Diagnosis) - 05/20/24 Discharge Disposition: Home or Self Care Attending Physician: ARGELIA Edwards Megan C Referring Physician: ARGELIA Osullivan Katy Marie Allergies, Adverse Reactions, Alerts Substance Criticality Severity Reaction Reaction Severity Status rizatriptan difficulty breathing Active Benzoin Unable to assess criticality Severe Rash Active Seasonale (oral contraceptive) sneezing Active Adhesive bandage 1 blisters Itching Active Bee stings Rash Active traMADol Active 1had reaction to spray adhesive only Assessment and Plan Extracted from: Title:Surgery Office Visit Note Author:ARGELIA Edwards Megan C Date:05/20/24 Frequent UTI To further assess why she is getting theseurinary tract infectionsI would like her to undergo urodynamic testing. She is in agreementwith this plan. In the interim I would like her to continue on the methenamine hippurate 1 g twice daily. She will wvc696 mg vitamin Cwith this dosing as well. It was explained to her that the medication works best when the urine pH is lower than 5.5. I have provided her with a standing urine culture order and I am happy tomanage her UTIs moving forward. Immunizations Given and Recorded Vaccine Date Status [...] Refills: 0, Skip if feeling drowsy., Pharmacy: [id number], Earliest Fill Date: 03/25/24 Start Date: 03/25/24 Stop Date: 04/25/24 Status: Ordered acetaminophen-oxycodone 325 mg-7.5 mg oral tablet Start: 05/19/24 4:30:00 PM EST, 1 tab, PO, q6h, Disp# 120 tab, Refills: 0, skip if feeling drowsy., PRN: as needed for pain, Pharmacy: [id number], Earliest Fill Date: 05/29/24 Start Date: 05/19/24 Stop Date: 06/28/24 Status: Ordered buPROPion 300 mg/24 hours (XL) oral tablet, extended release Start: 12/02/23 12:51:00 PM EDT, 1 tab, PO, Daily, Disp# 30 tab, Refills: 6, Pharmacy: [id number] Start Date: 12/02/23 Status: Ordered busPIRone 10 mg oral tablet Start: 11/04/23 3:02:00 PM EDT, 2 tab, PO, bid, Disp# 120 tab, Refills: 5, Pharmacy: [id number] Start Date: 11/04/23 Status: Ordered celecoxib 200 mg oral capsule Start: 01/13/24 10:50:00 AM EDT, See Instructions, Disp# 50 cap, Refills: 0, TAKE 1 CAPSULE BY MOUTHTWICE DAILY FOR THE FIRST 2 WEEKS, THEN TAKE 1 CAPSULE BY MOUTH DAILY NEEDED FOR PAIN (MAY TAKE CONTENTS OF CAPSULE AND MIX WITH SOFT FOODS SUCH APPLESAUCE.), Pharmacy: [id number] Start Date: 01/13/24 Status: Ordered clonazePAM 1 mg oral tablet Start: 05/14/24 9:39:00 AM EST, 1 tab, PO, bid, Disp# 60 tab, Refills: 0, Note to Pharmacy: PDMP verified, Pharmacy: [id number] Start Date: 05/14/24 Stop Date: 06/13/24 Status: Ordered Creon 36,000 units oral delayed release capsule Start: 01/31/24 12:01:00 PM EDT, 1 cap, PO, tid, Disp# 270 cap, Refills: 3, Note to Pharmacy: Pam Course, Pharmacy: [id number] Start Date: 01/31/24 Stop Date: 01/25/25 Status: Ordered gabapentin 400 mg oral capsule Start: 10/16/23 1:31:00 PM EDT, See Instructions, Disp# 120 cap, Refills: 5, TAKE 1 CAPSULE BY MOUTH FOUR TIMES DAILY, Pharmacy: [id number] Start Date: 10/16/23 Status: Ordered lidocaine 5% topical ointment Start: 01/14/24 10:57:00 AM EDT, 1 appl, topical, qid, Disp# 50 g, Refills: 2, wash hands thoroughlyafter application, Pharmacy: [id number] Start Date: 01/14/24 Stop Date: 04/13/24 Status: Ordered Macrobid 100 mg oral capsule Start: 05/18/24 1:52:00 PM EST, 1 cap, PO, bid, Disp# 20 cap, Refills: 1, Pharmacy: [id number] Start Date: 05/18/24 Stop Date: 06/07/24 Status: Ordered methenamine hippurate 1 g oral tablet Start: 05/20/24 12:14:00 PM EST, 1 tab, PO, bid, Disp# 180 tab, Refills: 0, for uti prophylaxis., Pharmacy: [id number] Start Date: 05/20/24 Status: Ordered montelukast 10 mg oral tablet Start: 11/14/23 1:27:00 PM EDT, 1 tab, PO, qPM, Disp# 30 tab, Refills: 3, Pharmacy: [id number] Start Date: 11/14/23 Stop Date: 03/13/24 Status: Ordered mupirocin 2% topical ointment Start: 04/22/24 9:49:00 AM EST, See Instructions, Disp# 22 g, Refills: 0, Apply to healing surgical site once daily with wound care until fully healed, Pharmacy: [id number] Start Date: 04/22/24 Status: Ordered omeprazole 20 mg oral delayed release capsule Start: 03/18/23 3:35:00 PM EST, 1 cap, PO, bid, Disp# 60 cap, Refills: 2, Pharmacy: [id number] Start Date: 03/18/23 Status: Ordered ondansetron 4 mg oral tablet See Instructions, Disp# 90 tab, Refills: 1, TAKE 1 TABLET TWICE A DAY NEEDED FOR NAUSEA AND VOMITING, Pharmacy: [facility] Start Date: 08/01/21 Status: Ordered PROzac 20 mg oral capsule Start: 01/09/24 9:50:00 AM EDT, 1 cap, PO, Daily, Disp# 30 cap, Refills: 4, Pharmacy: [id number] Start Date: 01/09/24 Stop Date: 06/07/24 Status: Ordered Suprep Bowel Prep Kit 1.6 g-3.13 g-17.5 g/177 mL oral liquid Start: 02/20/24 3:16:00 PM EST, See Instructions, Disp# 354 mL, Refills: 0, Follow instructions given to [facility] by [facility] Pharmacy: [id number] Start Date: 02/20/24 Status: Ordered Topamax 50 mg oral tablet Start: 03/24/24 11:39:00 AM EST, 1.5 tab, PO, bid, Disp# 270 tab, Refills: 3, Pharmacy: [facility] Start Date: 03/24/24 Stop Date: 03/19/25 Status: Ordered Zofran 4 mg oral tablet Start: 02/20/24 3:16:00 PM EST, See Instructions, Disp# 3 tab, Refills: 0, Take one tablet by mouth 30 minutes prior to taking prep solution., Pharmacy: [id number] Start Date: 02/20/24 Status: Ordered Mental Status 05/20/24 Barriers to Learning one year None evide [...] Dates Health Status Cl inical Service Informant Frequent UTI Discharge Diagnosis 05/20/24 Non-Specified Procedures Procedure Date Related Diagnosis Body [...] 04/15/10 Completed Cyst 68 1989 Completed Breast Completed Cystoscopy with hydrodistens [...] 35right C7-T1 paramedian cervical epidural steroid injection 53P7-S2 paramedian cervical epidural steroid injection 371. Mild [...] cigaret melonie Sex Sex Representation Female (finding) Urology Outpatient Note * ARGELIA Edwards Megan C: PERFORM Event Display: Urology Outpt Note Authored Date: Primary Care Provider ARGELIA Osullivan Katy Marie Referring Provider ARGELIA Osullivan Katy Marie Chief Complaint recurrent utis and incontinence History of Present Illness Okay this patient is a 54-year-old female who comes to the outpatient urology clinic today for follow-up. She was previously seen by another advanced practice provider within our group for frequenturinary tract infections she was placed on methenamine hippurate 1 g twice daily at that point and has been taking this medication ever since. Unfortunately, she still continues with breakthrough urinary tract infections. I did review her cultures which appear to all be growing E. coli. Of note, her urine pH is somewhat on the higher side. I discussed with her that it is ideal for this medication to work and a urine pH of 5.5 or below. I have encouraged her to take a daily vitamin C ta blet to increase the efficacy of this medication for added UTI prevention. She has a history of bladder sling that was placed by an outside urologist in 2020. Ever sincethen she has been having issues with difficulty emptying her bladder and does not feel as if she empties completely. She also notes that since the bladder sling was placed her urinary incontinence has remained the same. Review of Systems 14 point ROS reviewed andnegative except mentioned above Physical Exam On examination patientis awake, alert, pleasant, in no acute distress. HEENT: Oral mucosa pink and moist. Trachea is midline. Pulmonary: Respirations symmetric and nonlabored. Chest rise is equal bilaterally. Musculoskeletal:Moves all extremities. Normal muscular tone. Psychiatric: Normal mood and affect. Appropriate response to questioning. Hematologic: No obvious bruising or bleeding. Skin: Warm and dry and intact. Assessment/Plan Frequent UTI To further assess why she is getting theseurinary tract infectionsI would like her to undergo urodynamic testing. She is in agreementwith this plan. In the interim I would like her to continue on the methenamine hippurate 1 g twice daily. She will [id number] mg vitamin Cwith this dosing as well. It was explained to her that the medication works best when the urine pH is lower than 5.5. I have provided her with a standing urine culture order and I am happy tomanage her UTIs moving forward. Problem List/Past Medical History Ongoing Abdominal hyperesthesia [...] pelvis| Service Date: 10/14/2021hest x-ray| Service Date: 10/14/2021t X-ray| Service Date: 10/05/2021Ultrasound scan of gallbladder| [...] the next year) OverDue Adult Influenza Vaccine due10/14/23and every 1year Due Adult COVID-19 Vaccination due05/20/24Unknown Frequency Adult Social Determinants of Health Screening due05/20/24Unknown Frequency Hepatitis C Screening due05/20/24One-time only Pneumococcal Vaccine Adults and Adolescents with Chronic Illness due05/20/24One-time only Shingles Vaccine due05/20/24One-time only Due In Future Body Mass Index not due until03/25/25and every 366day Satisfied(in the past 1 year) Satisfied Body Mass Index on02/19/24.Satisfied by YOVANNY Lui Angela Breast Cancer Screening on09/13/23.Satisfied by YOVANNY Esteban Angela Lipid Screening on08/15/23.Satisfied by [employer], [employer] Electronic Signature on File CC: ARGELIA Polanco [address] [place] [address] Electronically Reviewed/Signed by: ARGELIA Garrett Author Signature Dt/Tm:05/20/2024 04:12 PM Department of Urology [facility] Patient Care team information Care Team Personnel Name: DO Machado Jill M Position: Physician - Anesthesiologist Member Role: Lifetime Relationship Address: [address] [place] [address] [place] Name: MD Criss, Neri Position: Physician - Anesthesiologist Member Role: Lifetime Relationship Address: [address] [place] [address] Name: ARGELIA Osullivan Katy Marie Position: Nurse Pract - Family Med Member Role: Primary Care Provider Address: [address] [place] [address] [place] Care Team Related Persons Name: LUIS M PYLE V Name: SILVANA MCMAHON Name: JESSE MCMAHON Name: Gayatri MCMAHON Name: Gayatri MCMAHON"
[2024-05-25] MEDS: DICLOFENAC SOD 1% GEL 100 GM TUBE EXT SCH (10:54)
--- NOTE | 2024-05-25 11:32 | Hospitalist Progress Note ---
Date of Service May 25, 2024 Assessment & Plan (1) Intractable epigastric abdominal pain: Plan: Etiology unclear. s/p laparoscopic cholecystectomy (10/25/2021, General Surgeon Dr. Sukumar Wood). s/p biliary sphincterotomy with ERCP done (07/19/2022, GI Dr. Neel Vaughn). GI evaluated, no urgent need for ERCP or EUS for now They say it could be done outpatient Patient mentioned [facility] GI Service evaluation with patient's GI Dr. Gordon Hernandez in the 05/25/2024 am. However, I dont see a formal consult Evaluated by pain mgt, added Voltaeren gel and Baclofen Chronic medical conditions: 2. Generalized anxiety disorder, major depression. No suicidal ideation. Asymptomatic on clonazepam bid prn anxiety, buspirone; bupropion, and fluoxetine. 3. Chronic cervical radiculopathy. Asymptomatic on gabapentin. Dispo: Admit, med/sx VTE Prophylaxis: SCDs, encourage ambulation Plan continue to monitor Admission and Anticipated Discharge Date Admission Date: May 23, 2024 Subjective "My belly still hurts today; it is a 5 (out of 10 pain intensity scale). The dilaudid (1mg IV q4 prn) you ordered helps to keep the pain bearable. I am not nauseated and I am not vomiting. No diarrhea at all. My GI doctor from [facility], Dr. Gordon Hernandez, will be here tomorrow to figure out why my belly still hurts even after I had my gallbladder removed (10/25/2021, 11:55am, [facility] General Surgeon Dr. Sukumar Wood, laparoscopic cholecystectomy for acute cholecystitis and diagnostic laparoscopy with pelvic washings for acute SBO); after that, I had a biliary sphincterotomy with ERCP done (07/19/2022, 2:26pm, [facility] GI Dr. Neel Vaughn Review of Systems Review of Systems: All systems reviewed are negative, apart from the ones contained in the history. Physical Exam Physical Exam: The patient is awake, alert and oriented 3, well developed and well nourished, normocephalic and atraumatic, lying in bed and in no acute distress. HEENT--PERRL, EOMI, mucous membranes and oropharynx mildly dry Neck--supple. No JVD. No bruits. Thyroid normal, trachea midline, no adenopathy. Heart--normal S1 and S2. No murmurs, rubs or gallops. Lungs--clear bilaterally, no respiratory distress, no accessory muscle use. Abdomen--normal bowel sounds and soft. Extremities--no cyanosis or clubbing. No edema. Dermatologic--normal skin turgor, normal color, no abnormal lymph nodes, no rash. Neurologic--cranial nerves II through XII grossly intact. Rheumatologic--normal range of motion. Psychiatric--normal affect. Results & Data Results & Data Vital Signs (Past 12 Hours) Vital Signs Temp Pulse Resp BP Pulse Ox O2 Del Method 05/25/24 07:52 99.3 F 89 18 134/79 97 Room Air PG Care Time/CCT Total # of Minutes Spent Total Time Spent with Patient: Total time spent is greater than 50% in coordination of care (as documented) at patient's floor/unit and/or counseling patient: Coding Level of Care Code 92262 SUB INP/OBS CARE 2/35MIN Diagnoses Intractable epigastric abdominal pain R10.13 Time Spent (min) 35
[2024-05-25 13:39] LABS: Appearance Urine Clear (Clear); Bilirubin Urine Negative (Negative); Blood Urine Negative (Negative); Color Urine Yellow; Glucose Urine UA Negative (Negative); Ketones Urine Negative (Negative); Leukocyte Esterase Urine Negative (Negative); Nitrite Urine Negative (Negative); Protein Urine Negative (Negative); Specific Gravity Urine 1.008 (1.000-1.030); Urobilinogen Urine Negative (Negative); pH Urine 6.5 (4.5-7.5)
--- NOTE | 2024-05-25 13:43 | Gastroenterology Progress Note ---
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 Abnormal bile duct size and blip in liver enzymes with pain. MRCP is negative for obstruction. Patient has had previous sphincterotomy. Has done reasonably well since 2020. She is improving with decreased pain and normalizing liver function test. My inclination is to follow clinically. She may go years without another episode. If her liver enzymes normalized and no pain follow expectantly. If continues to have episodes of pain with liver enzymes management is repeat ERCP and biliary sphincterotomy. Recommend this be done through her previous treating brand sales manager Dr. Bunch. The patient tolerates p.o. and liver enzymes improved tomorrow can be discharged. (2) Elevated LFTs: Plan -Continue to monitor LFTs -Continue supportive care for pain -Continue Creon on discharge -Will need outpatient evaluation for EUS and potential ERCP with either [facility] GI or [facility] GI. Admission and Anticipated Discharge Date Admission Date: May 23, 2024 Subjective Patient is a 54 yo female with abdominal pain and bile duct dilatation. She was seen by Dr. Uribe over the weekend. LFTs downtrending. Pain improving but still present. Review of Systems Gastrointestinal: + abdominal pain Physical Exam Gastrointestinal (Abdomen): Percussion/Palpation: + abdomen tender and abdomen soft Results & Data Results & Data Vital Signs (Past 12 Hours) Vital Signs Temp Pulse Resp BP Pulse Ox O2 Del Method 05/25/24 07:52 37.4 C 89 18 134/79 97 Room Air PG Care Time/CCT Total # of Minutes Spent Total Time Spent with Patient: Total time spent is greater than 50% in coordination of care (as documented) at patient's floor/unit and/or counseling patient: Coding Level of Care Code 21084 SUB INP/OBS CARE 2/35MIN Diagnoses Common bile duct dilatation K83.8 Elevated LFTs R79.89
[2024-05-26 07:07] VITALS: TEMP 97.7
[2024-05-26 10:01] LABS: Hematocrit (blood only) 39.5 % (37.0-47.0); Hemoglobin 12.8 g/dl (12.0-16.0); Mean Corpuscular Hemoglobin 30.8 pg (25.0-34.0); Mean Corpuscular Hgb Conc 32.4 g/dL (32.0-36.0); Mean Corpuscular Volume 95.2 fL (80.0-100.0); Mean Platelet Volume 9.9 fL (9.4-12.4); Platelet Count 295 K/uL (130-400); RDW Coefficient of Variation 12.5 % (11.5-14.5); RDW Standard Deviation 43.4 fL (36.4-46.3); Red Blood Count 4.15 M/uL (4.20-5.40); White Blood Count 7.29 K/ul (4.8-10.8)
[2024-05-26 10:16] LABS: Albumin Level 4.5 gm/dl (3.4-5.0); BUN Creatinine Ratio 13.4 (10-20); Bilirubin,Total 0.3 mg/dl (0.2-1.0); Calcium 9.8 mg/dl (8.6-10.3); Creatinine Clr Calc Pharmacy 79.1 ml/min; Globulin 2.3 gm/dl (2.5-4.0); Potassium 3.8 mmol/L (3.5-5.1); Total Protein 6.8 gm/dl (6.0-8.3)
--- NOTE | 2024-05-26 10:40 | Discharge Summary ---
Date of Service May 26, 2024 Admission HPI Per Admitting Provider 54-year-old female PMHx cholecystectomy, intractable epigastric abdominal pain, chronic recurrent pancreatitis, NEL, and MDD presenting to ED for N/V/D and abdominal pain x 5 days. States that approximately 5 days ago she started to have worsening abdominal pain, located to epigastric region sometimes radiating to the LUQ, and around her lower back. States that the pain is constant, stating that it is an aching type pain in compares it to labor pains, but also with occasional sharp stabbing pains in her epigastric region. Rates her pain a 6 out of 10 on the pain scale. States that she is also been having greasy stools that range from almost black coloration to yellow coloration starting around the same time. Has nausea/vomiting with any oral intake and has been unable to tolerate food. Was recently started on Macrobid for UTI as outpatient, and states that she also saw her chiropractor for the back pain initially and the chiropractor stated that all was well. She is denying fever or chills. No known sick contacts. Overall denying chest pain, SOB, palpitations, numbness/tingling, or fever/chills. Has been taking medications as prescribed. States this feels identical to her past history of pancreatitis. Denying EtOH use. No illicit drug use. ED evaluation reveals CBC unremarkable, CMP chloride 110, BUN/creatinine ratio 20.7, and alkaline phosphatase 117, otherwise grossly WNL. Lipase 75, UA without signs of infection. CTAP stable dilatation of CBD measuring 1.2 cm and new intrahepatic biliary dilatation with small air in hepatic segment IV likely pneumobilia. MRCP CHD 13 mm proximal to cystic duct prominent, increased from 10 mm, CBD dilated to ampulla, no choledocholithiasis. Patient did receive 2L NSS, Zofran 4 mg, lorazepam 0.5 mg, and total of 12 mg morphine IV in ED. Admission Exam (Per Admitting) Constitutional The patient is awake, alert and oriented 3, well developed and well nourished, normocephalic and atraumatic, lying in bed and in no acute distress. HEENT--PERRL, EOMI, mucous membranes and oropharynx mildly dry Neck--supple. No JVD. No bruits. Thyroid normal, trachea midline, no adenopathy. Heart--normal S1 and S2. No murmurs, rubs or gallops. Lungs--clear bilaterally, no respiratory distress, no accessory muscle use. Abdomen--normal bowel sounds and soft. Extremities--no cyanosis or clubbing. No edema. Dermatologic--normal skin turgor, normal color, no abnormal lymph nodes, no rash. Neurologic--cranial nerves II through XII grossly intact. Rheumatologic--normal range of motion. Psychiatric--normal affect. Discharge Data Consultations 05/23/24 00:14 Consult Gastroenterology Stat 05/23/24 01:08 ED Decision to Admit Stat 05/24/24 09:37 Consult Pain Management Routine Hospital Course (1) Intractable epigastric abdominal pain: Etiology unclear. now resolved s/p laparoscopic cholecystectomy (10/25/2021, General Surgeon Dr. Sukumar Wood). s/p biliary sphincterotomy with ERCP done (07/19/2022, GI Dr. Neel Vaughn). GI evaluated, no urgent need for ERCP or EUS for now They say it could be done outpatient Patient mentioned [facility] GI Service evaluation with patient's GI Dr. Gordon Hernandez in the 05/25/2024 am. However, I dont see a formal consult Evaluated by pain mgt, added Voltaren gel and Baclofen Chronic medical conditions: 2. Generalized anxiety disorder, major depression. No suicidal ideation. Asymptomatic on clonazepam bid prn anxiety, buspirone; bupropion, and fluoxetine. 3. Chronic cervical radiculopathy. Asymptomatic on gabapentin. Dispo: Admit, med/sx VTE Prophylaxis: SCDs, encourage ambulation Plan d/c home Coding Level of Care Code 70253 INP/OBS DISCH >30 MIN Diagnoses Intractable epigastric abdominal pain R10.13 Time Spent (min) 35
--- NOTE | 2024-05-26 10:53 | Gastroenterology Progress Note ---
Date of Service May 26, 2024 Assessment & Plan (1) Common bile duct dilatation: Plan: Patient is being discharged home today. She should follow-up with her outpatient GI for further recommendations. It does appear that her previous sphincterotomy was done by Dr. Vaughn of [facility]. Admission and Anticipated Discharge Date Admission Date: May 26, 2024 Subjective Patient is a 54 yo female with CBD dilatation. She notes improvement of her abdominal pain today. She is eating a low fat diet. LFTs improving. Review of Systems Gastrointestinal: + abdominal pain (improved) Physical Exam Constitutional: well developed Gastrointestinal (Abdomen): Inspection/Auscultation: abdomen normal to inspection Results & Data Results & Data Vital Signs (Past 12 Hours) Vital Signs Temp Pulse Resp BP Pulse Ox O2 Del Method 05/26/24 07:06 36.5 C 78 16 116/64 97 Room Air PG Care Time/CCT Total # of Minutes Spent Total Time Spent with Patient: Total time spent is greater than 50% in coordination of care (as documented) at patient's floor/unit and/or counseling patient: Coding Level of Care Code 96486 SUB INP/OBS CARE 2/35MIN Diagnoses Common bile duct dilatation K83.8
[2024-05-26 12:04] VITALS: BP 128/69; PULSE 65; RESP 18; O2SAT 98
== END 2024-05-26 14:14 | disposition home or self-care (01) | DRG 392 ==
LOC: ED 13:29 → 3N 13:29 → SUATTDRO 05-23 01:15 → 3N 05-23 02:13
DX: K83.8 Other specified diseases of biliary tract; Z87.440 Personal history of urinary (tract) infections; Z88.8 Allergy status to other drugs, medicaments and biological substances; R10.13 Epigastric pain; Z88.5 Allergy status to narcotic agent; F10.11 Alcohol abuse, in remission; R11.2 Nausea with vomiting, unspecified; F32.9 Major depressive disorder, single episode, unspecified; M54.12 Radiculopathy, cervical region; F41.1 Generalized anxiety disorder; Z79.899 Other long term (current) drug therapy; K86.1 Other chronic pancreatitis; Z90.49 Acquired absence of other specified parts of digestive tract; R74.01 Elevation of levels of liver transaminase levels